=== PATIENT | female | born 1965 | race Caucasian/White ===

== ENCOUNTER 2022-05-22 15:53 | Outpatient (CLI) | payer BC, SELFPAY ==
--- OUTSIDE RECORDS SUMMARY | 2022-05-22 15:58 | XMS_ITS | Clinical Summary ---
:1965 Author Organization [facility] [place] [address] Care Team Providers Name Role Phone Mario Alberto Otoole Kenneth DO Unavailable Ino Rodriguez MD Unavailable Pcp, No Primary Care Provider Unavailable Allergies No known active allergies Medications Medication Sig Dispensed Refills Start Date End Date Status valACYclovir (VALTREX) 1 0 12/07/2019 Active gram tablet lisinopril-hydrochloroth Take 1 Tablet by 0 Active iazide, 20-25 mg, mouth. (PRINZIDE, ZESTORETIC) 20-25 mg per tablet omeprazole (PRILOSEC) 40 TAKE 1 CAPSULE BY 0 020 Active mg Delayed-Release MOUTH EVERY DAY capsule pravastatin (PRAVACHOL) TAKE 1 TABLET BY 0 0 Active 40 mg tablet MOUTH EVERY DAY predniSONE (DELTASONE) 5 TAKE 1 TABLET BY 0 10/19/19 21 Active mg tablet MOUTH 2 TIMES A DAY. X 1 MONTH, THEN TAKE 1 TABLET PER DAY azaTHIOprine (IMURAN) 50 azathioprine 50 mg tablet 0 03/28/2021 Active mg tablet TAKE 4 TABLETS (200 MG TOTAL) BY MOUTH DAILY. hydrOXYchloroQUINE Take 400 mg by 0 04/22/2021 Active (PLAQUENIL) 200 mg mouth. tablet colestipoL (COLESTID) 1 Take 1 g by 0 04/19/2021 Active gram tablet mouth. oxybutynin XL (DITROPAN Take 1 Tablet (10 90 Tablet 0 05/09/20 21 Active XL) 10 mg CR mg) by mouth once tabletIndications: daily. Overactive bladder mirabegron Myrbetriq 50 mg tablet,extended release 0 Active EXTENDED-release TAKE 1 TABLET BY MOUTH EVERY DAY (Myrbetriq) 50 mg tablet [place] approved! estradioL (ESTRACE) Insert 1 g into 42.5 g 3 08/09/2021 Active 0.01% (0.1 mg/g) vaginal the vagina every creamIndications: Thursday, Thursday Atrophic vaginitis and Thursday. 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 Personal history of tobacco use, presenting hazards to health 08/08/2008 Immunizations Name Administration Dates Next Due Td (Age >=7 Years) 09/30/1996 Tdap 08/08/2008 Family History Medical History Relation Name Comments Arthritis Father Heart Disease Father pacemaker Heart Disease Maternal Grandfather Heart Disease Maternal Grandmother Arthritis Mother Hypertension Mother Other Other cousin with Lupu s Heart Disease Paternal Grandfather Other Paternal Grandmother leukemia Relation Name Status Comments Father Maternal Grandfather Maternal Grandmother Mother Other Paternal Grandfather Paternal Grandmother Social History Tobacco Use Types Packs/Day Years Used Date Former Smoker Cigarettes 1 23 Quit: 07/15/20 18 Smokeless Tobacco: Never Used Tobacco Cessation: Ready to Quit: No; Co unseling Given: Yes Alcohol Use Standard Drinks/Week Comments No 0 (1 standard drink = 0.6 oz pure alcoho l) Sex Assigned at Date Recorded Not on file Obstetrics History Last Filed Vital Signs Vital Sign Reading Time Taken Comments Blood Pressure 118/70 08/08/2021 4:46 PM [facility] Pulse 64 08/08/2021 4:46 PM [facility] Temperature 36.7 ??C (98 ??F) 11/13/2020 9:33 AM [facility] Respiratory Rate 16 08/08/2021 4:46 PM [facility] Oxygen Saturation 99% 11/13/2020 9:33 AM [facility] Inhaled Oxygen Concentration - - Weight 102.9 kg (226 lb 12.8 oz) 05/09/2021 2:10 PM CDT Height 167.6 cm (5' 6) 11/13/2020 9:33 AM [facility] Body Mass Index 36.61 11/13/2020 9:33 AM [facility] Plan of Treatment Health Maintenance Due Date Last Done Comments Depression screening for age 12+ 1976 Hepatitis C screening for age 1006/28/1982 18-79 Zoster (shingles) series for age 1006/28/1983 50+ (1 of 2) Colonoscopy through age 75 2009 Mammogram for age 45-75 08/08/2009 08/08/2008 Lipids for age 45-75 08/08/2013 08/08/2008 Tetanus booster 08/08/2018 08/08/2008, 09/30/1996 COVID-19 vaccine series (4 - 10/18/2021 07/26/2021, 021, Booster for Moderna series) 11/23/2020 BMI (ht and wt on same day) for 11/13/2021 11/13/2020 age 18+ Influenza for age 50-64 05/08/2022 Pap test for age 21-65 09/20/2024 09/20/2021, 09/20/2021, 11/03/2016, Additional history exists Tdap Completed 08/08/2008 Results Not on filefrom Last 3 Months Insurance Payer Benefit Plan / Subscriber ID Effective Dates Phone Addre ss Type Group BLUE [employer]OSS BLUE CROSS OF [id number] 2013-Present [address] [place] [address] BLUE [employer]OSS BLUE [employer]OSS OF [id number] 2020-Present [address] [address] [place] [address] [phone] (Work) Vee Danielson Personal/Family Self [address] (Home) [place], [place] [phone] (Work) Care Teams Home Economist Consumer Service Relationship Specialty Start Date End Date Pcp, No PCP - General 01/28/21 . Mario Alberto Otoole DO Rheumatology Rheumatology 11/17/11 Ino Rodriguez MD Rheumatology Rheumatology 05/19/12
--- OUTSIDE RECORDS SUMMARY | 2022-05-22 15:59 | XMS_ITS | Encounter Summary ---
:1965 Author Organization [facility] Address [address] [place] [address] Care Team Providers Name Role Phone Elsewhere, Pcp Primary Care Provider Unavailable Encounter Details Date Type Department Care Team Description 03/07/2022 Hospital Encounter Department of Pedro Donnelly Medicalma delia ion Therapy Laboratory Medicine R, POWER ELECTRONICS RESEARCH ENGINEER, C.N .P. Field Geologist Not in [place], [facility] [address] [address] [place], [place] [phone] (Work) [phone] Social History Tobacco Use Types Packs/Day Years Used Date Smoking Tobacco: Former Cigarettes 0 33 09/1986 - 07/15/2018 Smokeless Tobacco: Never Alcohol Use Standard Drinks/Week Comments No 0 (1 standard drink = 0.6 oz pure alcoho l) Alcohol Habits Answer Date Recorded How often do you have a drink containing alcohol? Never 09/23/2021 How many drinks containing alcohol do you have on a Patient refused 06/17/2019 typical day when you are drinking? How often do you have six or more drinks on one Never 03/07/2019 occasion? Comment: Not asked Social Isolation Answer Date Recorded In a typical week, how many times do you talk on the Never 09/23/2021 phone with family, friends, or neighbors? How often do you get together with friends or relatives? Nev er 09/23/2021 How often do you attend sikh or restoration services? Never 09/23/2021 Do you belong to any clubs or organizations such as No 09/23/2021 sikh groups, unions, fraternal or athletic groups, or school groups? How often do you attend meetings of the clubs or Never 09/23/2021 organizations you belong to? Are you now , , , , never Nev er 09/23/2021 or living with a partner? Physical Activity Answer Date Recorded On average, how many days per week do you engage in moderate to 0 days 09/23/2021 strenuous exercise (like walking fast, running, jogging, dancing, swimming, biking, or other activities that cause a light or heavy sweat)? On average, how many minutes do you engage in exercise at th is 0 min 09/23/2021 level? Stress Answer Date Recorded Do you feel stress - tense, restless, nervous, or To some ex tent 09/23/2021 anxious, or unable to sleep at night because your mind is troubled all the time - these days? Financial Resource Strain Answer Date Recorded How hard is it for you to pay for the very basics like Somew hat hard 09/23/2021 food, housing, medical care, and heating? Intimate Partner Violence Answer Date Recorded Within the last year, have you been afraid of your partner o r No 09/23/2021 ex-partner? Within the last year, have you been humiliated or emotionall y No 09/23/2021 abused in other ways by your partner or ex-partner? Within the last year, have you been kicked, hit, slapped, or No 09/23/2021 otherwise physically hurt by your partner or ex-partner? Within the last year, have you been raped or forced to have any No 09/23/2021 kind of sexual activity by your partner or ex-partner? Food Insecurity Answer Date Recorded Within the past 12 months, you worried that your food would Never true 09/23/2021 run out before you got money to buy more. Within the past 12 months, the food you bought just didn't N ever true 09/23/2021 last and you didn't have money to get more. Transportation Needs Answer Date Recorded In the past 12 months, has lack of transportation kept you f rom No 09/23/2021 medical appointments or from getting medications? In the past 12 months, has lack of transportation kept you f rom No 09/23/2021 meetings, work, or getting things needed for daily living? Housing Stability Answer Date Recorded In the last 12 months, was there a time when you were not ab le Yes 09/23/2021 to pay the mortgage or rent on time? In the last 12 months, how many places have you lived? 1 01/30/2021 In the last 12 months, was there a time when you did not hav e a No 09/23/[address] to sleep or slept in a penitentiary (including now)? Education Answer Date Recorded What is the highest level of school you have completed or 12 th grade 06/17/2019 the highest degree you have received? Sex Assigned at Date Recorded Female 03/09/2018 3:30 PM CDT documented as of this encounter Medications at Time of Discharge Medication Sig Dispensed Refills Start Date End Date azaTHIOprine (IMURAN) 50 TAKE 4 TABLETS BY 360 tablet 1 03/2022 mg tabletIndications: MOUTH DAILY. Lupus Systemic Erythematosus (HCC) calcium carbonate-vit Take 1 tablet by 0 08/25/20 12 D3-min 600 mg calcium- 800 mouth daily. unit tablet colestipoL (COLESTID) 1 TAKE 1 TABLET (1 180 tablet 1 2021 gram tablet G TOTAL) BY MOUTH 2 TIMES A DAY. estradioL (ESTRACE) 0.1 Insert 1 g into 0 021 mg/g (0.01%) vaginal cream the vagina. lisinopril-hydroCHLOROthia Take 1 tablet by 0 zide (PRINZIDE,ZESTORETIC) mouth daily. 20-25 mg per tablet mirabegron (MYRBETRIQ) 50 daily. 0 mg 24 hr tablet omeprazole (PriLOSEC) 40 TAKE 1 CAPSULE [address] capsule (40 MG TOTAL) BY MOUTH 2 (TWO) TIMES A DAY BEFORE BREAKFAST AND DINNER. pravastatin (PRAVACHOL) 40 Take 1 tablet (40 90 tablet 3 mg tablet mg total) by mouth daily. valACYclovir (VALTREX) 500 as directed. 0 021 mg tablet hydrOXYchloroQUINE TAKE 2 TABLETS BY 180 tablet 1 09/18/2021 05/05/2022 (PLAQUENIL) 200 mg tablet MOUTH DIRECTED. TAKE 1 TAB DAILY FOR 2 WEEKS THEN 2 TABS DAILY. documented as of this encounter Plan of Treatment Upcoming Encounters Date Type Specialty Care Team Description 07/08/2022 Appointment Laboratory Medicine Pedro Donnelly APRN, C.N.P. [address] [place] [phone] (Claudia rk) 07/08/2022 Office Visit Gastroenterology and Collin Trivedi Hepatology Chloe [address] [place] [phone] (Claudia rk) documented as of this encounter Procedures Procedure Name Priority Date/Time Associated Diagnosis Comme nts CBC WITH DIFFERENTIAL, B Routine 03/07/2022 4:34 Medication Th erapy Results for this PM CDT Halfway Not procedure are in Anticoagulant the results section. ASPARTATE Routine 03/07/2022 4:34 Medication Therapy Result s for this AMINOTRANSFERASE (AST), PM CDT Halfway Not pro cedure are in S/P Anticoagulant the results section. documented in this encounter Results AST (Aspartate Aminotransferase) (03/07/2022 4:34 PM CDT) [facility] ADmantX Method Time Signature Aspartate 19 8 - 43 03/07/2022 [place] Aminotransferase U/L 6:22 PM CDT (AST), P Specimen Anatomical Collection Method Collection Time Receive d Time (Source) Location / / Volume Laterality Blood (Blood, 03/07/2022 4:34 PM 03/07/20 6:04 Venous) CDT PM CDT Pedro Donnelly APRN, C.N.P. LAB BLOOD ADD-ON Performing Organization Address City/State/ZIP Code Phon e Number [facility] [address] [place] [address] [place] [address] System in [place] [address] (ABNORMAL) CBC with Differential, Blood (03/07/2022 4:34 PM CDT) [facility] ADmantX Method Time Signature Hemoglobin 11.5 (L) 11.6 - 03/07/2022 [place] 15.0 g/dL 6:10 PM CDT Hematocrit 34.8 (L) 35.5 - 03/07/2022 [place] 44.9 % 6:10 PM CDT Erythrocytes 3.86 (L) 3.92 - 03/07/2022 [place] 5.13 6:10 PM CDT x10(12)/L MCV 90.2 78.2 - 03/07/2022 [place] 97.9 fL 6:10 PM CDT RBC Distrib Width 14.7 12.2 - 03/07/2022 [place] 16.1 % 6:10 PM CDT Platelet Count 138 (L) 157 - 371 03/07/2022 [place] x10(9)/L 6:10 PM CDT Leukocytes 4.9 3.4 - 9.6 03/07/2022 [place] x10(9)/L 6:10 PM CDT Neutrophils 3.67 1.56 - 03/07/2022 [place] 6.45 6:10 PM CDT x10(9)/L Lymphocytes 0.78 (L) 0.95 - 03/07/2022 [place] 3.07 6:10 PM CDT x10(9)/L Monocytes 0.37 0.26 - 03/07/2022 [place] 0.81 6:10 PM CDT x10(9)/L Eosinophils 0.07 0.03 - 03/07/2022 [place] 0.48 6:10 PM CDT x10(9)/L Basophils <0.03 0.01 - 03/07/2022 [place] 0.08 6:10 PM CDT x10(9)/L Specimen Anatomical Collection Method Collection Time Receive d Time (Source) Location / / Volume Laterality Blood (Blood, 03/07/2022 4:34 PM 03/07/20 22 4:37 Venous) CDT PM CDT Pedro Donnelly APRN, C.N.P. LAB BLOOD ADD-ON Performing Organization Address City/State/ZIP Code Phon e Number [facility] [address] [place] [address] [facility] [place] [address] System in [place] [address] [facility] documented in this encounter Visit Diagnoses Diagnosis Medication Therapy Halfway Not Anticoa gulant documented in this encounter Care Teams Handicraft Or Hobby Shop Manager Relationship Specialty Start Date End Date Elsewhere, Pcp PCP - General Family Medicine 03/25/21 documented as of this encounter
--- OUTSIDE RECORDS SUMMARY | 2022-05-22 15:59 | XMS_ITS | Encounter Summary ---
:1965 Author Organization [facility] Address [address] [place] [address] Care Team Providers Name Role Phone Elsewhere, Pcp Primary Care Provider Unavailable Reason for Visit Reason Comments Lab Monitoring AZA Encounter Details Date Type Department Care Team Description 09/24/2021 Clinical Communication Division of Avani Celis M onitoring Rheumatology in A, R.N. ([facility]) [place], [place] [address] [facility] [address] [place] [phone] Social History Tobacco Use Types Packs/Day Years [...] er 09/23/2021 How often do you attend amish or gnosticist services? Never 09/23/2021 Do you belong to any clubs or organizations such as No 09/23/2021 amish groups, unions, fraternal or athletic groups, or [...] place to sleep or slept in a intermediate (including now)? Education Answer Date Recorded What is the highest level of school you have completed or 12 th grade 06/17/2019 the highest degree you have received? Sex Assigned at Date Recorded Female 03/09/2018 3:30 PM CDT documented as of this encounter Miscellaneous Notes Telephone Encounter - Avani Celis R.N. - 09/24/2021 8:17 AM CST ASSESSMENT Rheumatology monitoring labs completed on 09/23/21for azathioprine (Imuran) monitoring were reviewed per provider order. Labs reviewed: absolute neutrophil count, AST, hemoglobin, leukocytes, platelets Labs outside parameters: urinalysis ESR (Sed rate) Labs viewable in Labs tab. PLAN Provider NOT notified of abnormal lab(s). Patient was seen by provider yesterday. Per provider note,labs were addressed. The ESR is improving, but still elevated. Next labs scheduled for 11/11/21. NCE ENGINEER documented in this encounter Plan of Treatment Upcoming Encounters Date Type Specialty Care Team Description 07/08/2022 Appointment Laboratory Medicine Pedro Donnelly, ANTHONY, C.N.P. [address] [place] [phone] (Claudia vera) 07/08/2022 Office Visit Gastroenterology and Collin Trivedi Hepatology Chloe [address] [place] [phone] (Claudia vera) documented as of this encounter Visit Diagnoses Not on filedocumented in this encounter Care Teams Candy Cooker Helper Relationship Specialty Start Date End Date Elsewhere, Pcp PCP - General Family Medicine 03/25/21 documented as of this encounter
--- OUTSIDE RECORDS SUMMARY | 2022-05-22 15:59 | XMS_ITS | Clinical Summary ---
:1965 Author Organization [facility] Address [address] [place] [address] Care Team Providers Name Role Phone Elsewhere, Pcp Primary Care Provider Unavailable Source Comments Patient records contain information from all sites at [facility]. For routine questions regarding patient records, call [phone] during business hours, M-F 8:00 AM - 5:00 PM Central Time. Record requests for emergency care only can be directed to [phone] at any time.[facility] Allergies Active Allergy Reactions Severity Noted Date Comments No Known Allergies Other (see comments) 06/11/2012 Medications Medication Sig Dispensed Refills Start End Date Status Date calcium carbonate-vit Take 1 tablet 0 Active D3-min 600 mg calcium- by mouth 2 800 unit tablet daily. lisinopril-hydroCHLORO Take 1 tablet 0 Active thiazide by mouth (PRINZIDE,ZESTORETIC) daily. 20-25 mg per tablet omeprazole (PriLOSEC) TAKE 1 180 capsule [address] capsule CAPSULE (40 1 MG TOTAL) BY MOUTH 2 (TWO) TIMES A DAY BEFORE BREAKFAST AND DINNER. valACYclovir (VALTREX) as directed. 0 Active 500 mg tablet 1 mirabegron (MYRBETRIQ) daily. 0 Active 50 mg 24 hr tablet pravastatin Take 1 tablet 90 tablet 3 Acti ve (PRAVACHOL) 40 mg (40 mg total) 1 tablet by mouth daily. estradioL (ESTRACE) Insert 1 g 0 Active 0.1 mg/g (0.01%) into the 1 vaginal cream vagina. colestipoL (COLESTID) TAKE 1 TABLET 180 tablet 1 Active 1 gram tablet (1 G TOTAL) 2 BY MOUTH 2 TIMES A DAY. azaTHIOprine (IMURAN) TAKE 4 360 tablet 1 Active 50 mg TABLETS BY 2 tabletIndications: MOUTH DAILY. Lupus Systemic Erythematosus (HCC) hydrOXYchloroQUINE Take 2 180 tablet 0 Active (PLAQUENIL) 200 mg tablets (400 2 tablet mg total) by mouth daily. Updated eye exam required for further refills. hydrOXYchloroQUINE TAKE 2 180 tablet 1 05/05/20 Discontinued (PLAQUENIL) 200 mg TABLETS BY 2 22 tablet MOUTH DIRECTED. TAKE 1 TAB DAILY FOR 2 WEEKS THEN 2 TABS DAILY. Hospital, Clinic, or Ordered Dose Route Frequency Start Date End D ate Status Other Facility Administered Medication fluorescein 500 mg/5 mL 500 mg IV Once in imaging 12/12/2019 Active (10 %) injection 500 mg (AK-FLUOR/FLUORESCEIN)I ndications: Hemorrhage Retinal Bilateral, Retinopathy Active Problems Problem Noted Date Retinopathy 12/11/2019 Hemorrhage Retinal Bilateral 10/17/2019 Cirrhosis Nonalcoholic 08/11/2018 Thrombocytopenia 08/26/2017 Swelling Leg 08/22/2015 Dependence Nicotine 06/08/2013 High Risk Medication 09/02/2012 Hepatitis Autoimmune 07/13/2012 Lupus Systemic Erythematosus 07/12/2012 Splenomegaly Acquired 06/11/2012 Other Local Lupus Erythematosus 05/04/2012 Encounters Date Type Specialty Care Team Description 05/14/2022 Documentation Rheumatology Arielle, Lab Monitoring Vesna Patterson R.N. 05/08/2022 Hospital Encounter Laboratory Medicine Pedro Donnelly epatitis Autoimmune (HCC); R, HI LOW TRUCK DRIVER, C.N.P. Medication T herapy Custodial Not Anticoagulant 04/30/2022 Refill Rheumatology Pedro Donnelly Refill ANTHONY Rojas, C.N.P. 03/12/2022 Clinical Rheumatology Yue, Lab Monitoring Yeny Ramirez R.N. 03/07/2022 Hospital Encounter Laboratory Medicine Pedro Donnelly edication Therapy R, HI LOW TRUCK DRIVER, C.N.P. Custodial No t Anticoagulant from Last 3 Months Immunizations Name Administration Dates Next Due HepA Adult 07/23/2012 Influenza (IM) Preservative Free 07/23/2012 Tdap 08/08/2008 Family History Medical History Relation Name Comments Coronary artery disease Father Dex Danielson Hypertension Father Dex Danielson Hyperlipidemia Mother Kindra Danielson Hypertension Mother Kindra Danielson Leukemia Paternal Grandmother Sherly Danielson Relation Name Status Comments Father Dex Danielson Mother Kindra Danielson Paternal Grandmother Sherly Danielson Social History Tobacco Use Types Packs/Day Years [...] er 09/23/2021 How often do you attend religious or mormonism services? Never 09/23/2021 Do you belong to any clubs or organizations such as No 09/23/2021 religious groups, unions, fraternal or athletic groups, or [...] place to sleep or slept in a fci (including now)? Education Answer Date Recorded What is the highest level of school you have completed or 12 th grade 06/17/2019 the highest degree you have received? Sex Assigned at Date Recorded Female 03/09/2018 3:30 PM CDT Last Filed Vital Signs Vital Sign Reading Time Taken Comments Blood Pressure 128/57 09/23/2021 3:16 PM PRIMER POWDER BLENDER WET Pulse 81 09/23/2021 3:16 PM PRIMER POWDER BLENDER WET Temperature 36.9 ??C (98.4 ??F) 09/23/2021 3:16 PM PRIMER POWDER BLENDER WET Respiratory Rate 23 12/22/2018 2:52 PM CDT Oxygen Saturation 99% 02/16/2020 3:26 PM CDT Inhaled Oxygen Concentration - - Weight 103 kg (227 lb 15.3 oz) 09/23/2021 3:16 PM PR[employer] POWDER BLEND[employer] WET Height 164.6 cm (5' 4.8) 09/23/2021 3:16 PM PRIMER POWDER BLENDER WET Body Mass Index 38.16 09/23/2021 3:16 PM PRIMER POWDER BLENDER WET Plan of Treatment Upcoming Encounters Date Type Specialty Care Team Description 07/08/2022 Appointment Laboratory Medicine Pedro Donnelly, HI LOW TRUCK DRIVER, C.N.P. [address] [place] [phone] (Wo rk) 07/08/2022 Office Visit Gastroenterology and Collin Trivedi, Hepatology M.DSarina [address] [place] [phone] (Wo rk) Health Maintenance Due Date Last Done Comments CT Colonography 1965 Cologuard 1965 FIT 1965 Hepatitis B Vaccines (1 of 1965 3 - 3-dose series) Pneumococcal vaccine (0-64 1970 years) (1 - PCV) Zoster Vaccines (1 of 2) 1983 Mammogram 01/05/2014 01/05/2013 (Performed elsewhere) Depression Screening 09/07/2021 (Annual PHQ-2) COVID-19 Vaccine (4 - 10/18/2021 07/26/2021, 12/20/2020, Booster for Moderna series) 11/23/2020 Abdominal Ultrasound 10/20/2021 04/19/2021, 02/27/2021, 10/19/2020, Additional history exists Influenza Vaccine (#1) 2022 06/18/2021, 06/19/2020, 05/22/2020, Additional history exists Creatinine Level 05/08/2023 05/08/2022, 09/23/2021, 04/19/2021, Additional history exists Potassium Level 05/08/2023 05/08/2022, 04/19/2021, 10/19/2020, Additional history exists Sodium Level 05/08/2023 05/08/2022, 04/19/2021, 10/19/2020, Additional history exists Lipid (Cholesterol) 06/21/2024 06/21/2019, 09/01/2011 Screening (Performed elsewhere) Fasting Glucose for 05/08/2025 05/08/2022, 04/19/2021, Diabetes Screening 10/19/2020, Additional history exists DTaP,Tdap,and Td Vaccines 09/16/2028 09/16/2018, 08/08/2008 (3 - Td or Tdap) Colonoscopy 12/22/2028 12/22/2018, 12/22/2018, 12/22/2018, Additional history exists Colorectal Cancer Screening 12/22/2028 Hepatitis C Screening Completed 06/11/2012 Hepatitis A Vaccines Completed 12/19/2013, 07/23/2012 HPV Vaccines Aged Out No longer eligib le based on patient 's age to complete this topic Procedures Procedure Name Priority Date/Time Associated Diagnosis Comme nts CBC WITH DIFFERENTIAL, B Routine 05/08/2022 9:40 Medication Th erapy Results for this AM CDT Field Service Manager Not procedure are in Anticoagulant the results section. COMPREHENSIVE METABOLIC Routine 05/08/2022 9:40 Hepatitis Auto immune Results for this PANEL, S/P AM CDT (HCC) procedure are i n the results section. PROTHROMBIN TIME (PT), P Routine 05/08/2022 9:40 Hepatitis Aut oimmune Results for this AM CDT (HCC) procedure are i n the results section. ASPARTATE Routine 03/07/2022 4:34 Medication Therapy Result s for this AMINOTRANSFERASE (AST), PM CDT Field Service Manager Not pro cedure are in S/P Anticoagulant the results section. CBC WITH DIFFERENTIAL, B Routine 03/07/2022 4:34 Medication Th erapy Results for this PM CDT Field Service Manager Not procedure are in Anticoagulant the results section. from Last 3 Months Results Prothrombin Time (PT) (05/08/2022 9:40 AM CDT) P athologist Signature Prothrombin 11.5 9.4 - 12.5 05/08/2022 OWAT Time, P sec 11:32 AM CDT INR 1.0 0.9 - 1.1 05/08/2022 OWAT 11:32 AM CDT Comment: ----ADDITIONAL INFORMATION---- Standard intensity warfarin therapeutic range: 2.0 to 3.0 ?? High intensity warfarin therapeutic rang e: 2.5 to 3.5 Specimen Anatomical Collection Method Collection Time Receive d Time (Source) Location / / Volume Laterality Blood (Blood, 05/08/2022 9:40 AM 05/08/20 22 Venous) CDT 11:17 AM CDT Collin Trivedi M.D. LAB BLOOD ADD-ON Performing Organization Address City/State/ZIP Code Phon e Number [facility] [address] [place] [address] [facility] [place] [address] System in [place] [address] (ABNORMAL) CBC with Differential, Blood (05/08/2022 9:40 AM CDT)Only the most recent of2 resultswithin the time period is included. [facility] gist Method Time Signature Hemoglobin 12.2 11.6 - 05/08/2022 FB60 15.0 g/dL 9:52 AM CDT Hematocrit 35.7 35.5 - 05/08/2022 FB60 44.9 % 9:52 AM CDT Erythrocytes 4.05 3.92 - 05/08/2022 FB60 5.13 9:52 AM CDT x10(12)/L MCV 88.1 78.2 - 05/08/2022 FB60 97.9 fL 9:52 AM CDT RBC Distrib Width 14.2 12.2 - 05/08/2022 FB60 16.1 % 9:52 AM CDT Platelet Count 121 (L) 157 - 371 05/08/2022 FB60 x10(9)/L 9:52 AM CDT Leukocytes 4.6 3.4 - 9.6 05/08/2022 FB60 x10(9)/L 9:52 AM CDT Neutrophils 3.33 1.56 - 05/08/2022 FB60 6.45 9:52 AM CDT x10(9)/L Lymphocytes 0.76 (L) 0.95 - 05/08/2022 FB60 3.07 9:52 AM CDT x10(9)/L Monocytes 0.40 0.26 - 05/08/2022 FB60 0.81 9:52 AM CDT x10(9)/L Eosinophils 0.07 0.03 - 05/08/2022 FB60 0.48 9:52 AM CDT x10(9)/L Basophils <0.04 0.01 - 05/08/2022 FB60 0.08 9:52 AM CDT x10(9)/L Specimen Anatomical Collection Method Collection Time Receive d Time (Source) Location / / Volume Laterality Blood (Blood, 05/08/2022 9:40 AM 05/08/20 9:40 Venous) CDT AM CDT Pedro Donnelly APRN, C.N.P. LAB BLOOD ADD-ON Performing Organization Address City/State/ZIP Code Phon e Number [address] [address] [facility] [address] [place] [address] System [address] Comprehensive Metabolic Panel (05/08/2022 9:40 AM CDT) P athologist Signature Potassium, P 4.6 3.6 - 5.2 05/08/2022 [place] mmol/L 12:04 PM CDT Sodium, P 140 135 - 145 05/08/2022 [place] mmol/L 12:04 PM CDT Chloride, P 103 98 - 107 05/08/2022 [place] mmol/L 12:04 PM CDT Bicarbonate, P 26 22 - 29 05/08/2022 [place] mmol/L 12:03 PM CDT Anion Gap, P 11 7 - 15 05/08/2022 OW[place] 12:04 PM CDT BUN (Blood Urea 21 6 - 21 05/08/2022 OWAT Nitrogen), P mg/dL 12:03 PM CDT Creatinine 1.00 0.59 - 05/08/2022 OWAT 1.04 mg/dL 12:03 PM CDT Estimated GFR 66 >=60 05/08/2022 OWAT (eGFR) mL/min/BSA 12:03 PM CDT Comment: Estimated GFR calculated using the 2020 CKD_EPI creatinine equation. Calcium, Total, P 9.7 8.6 - 10.0 mg/dL 05/08/2022 12:0 3 PM CDT OW[place] Glucose, P 99 70 - 140 mg/dL 05/08/2022 12:03 PM CDT OW[place] Protein, Total, P 7.7 6.3 - 7.9 g/dL 05/08/2022 12:03 PM CDT OWAT Albumin, P 4.5 3.5 - 5.0 g/dL 05/08/2022 12:03 PM CDT OW[place] Aspartate Aminotransferase 21 8 - 43 U/L 05/08/2022 1 2:03 PM CDT OW[place] (AST), P Alkaline Phosphatase, P 79 35 - 104 U/L 05/08/2022 12 :03 PM CDT OWAT Alanine Aminotransferase (ALT), 12 7 - 45 U/L 022 12:03 PM CDT OWAT P Bilirubin, Total, P 0.5 <=1.2 mg/dL 05/08/2022 12:03 P M CDT OWAT Specimen Anatomical Collection Method Collection Time Receive d Time (Source) Location / / Volume Laterality Blood (Blood, 05/08/2022 9:40 AM 05/08/20 Venous) CDT 11:19 AM CDT Collin Trivedi M.D. LAB BLOOD ADD-ON Performing Organization Address City/State/ZIP Code Phon e Number - [address] [place] [address] [facility] [place] [address] System in [place] [address] [place] [address] AST (Aspartate Aminotransferase) (03/07/2022 4:34 PM CDT) Patholo gist Method Time Signature Aspartate 19 8 - 43 03/07/2022 OWAT Aminotransferase U/L 6:22 PM CDT (AST), P Specimen Anatomical Collection Method Collection Time Receive d Time (Source) Location / / Volume Laterality Blood (Blood, 03/07/2022 4:34 PM 03/07/20 22 6:04 Venous) CDT PM CDT Robert Kumar APRNNSarinaPSarina LAB BLOOD ADD-ON Performing Organization Address City/State/ZIP Code Phon e Number - [address] [place] [address] [facility] [address] System in [place] [address] from Last 3 Months Insurance Payer Benefit Plan / Subscriber ID Effective Dates Phone Addre ss Type Group BLUE [employer]ARD[employer] BLUE [id number] 2020-Laurie [phone] PO TALI X [id number] PPO BLUE [facility] ACCESS t [address] [place] [address] Care Teams Block Sealer Relationship Specialty Start Date End Date Elsewhere, Pcp PCP - General Family Medicine 03/25/21
--- OUTSIDE RECORDS SUMMARY | 2022-05-22 15:59 | XMS_ITS | Encounter Summary ---
:1965 Author Organization [facility] Address [address] [place] [address] Care Team Providers Name Role Phone Elsewhere, Pcp Primary Care Provider Unavailable Reason for Referral MRI/CAT/PET Scan (Routine) - Closed Specialty Diagnoses / Procedures Referred By Contact Refer red To Contact Radiology Diagnoses Hepatitis Autoimmune (HCC) Collin Trivedi M.D. [facility] Procedures MR Liver Elastogram Only without IV Contrast [address] [place] [phone] Referral ID Status Reason Start Date Expiration Date Visits Requ ested Visits Authorized [id number] Closed 04/24/2021 04/24/2022 1 1 [facility] DEPARTMENT Reason for Visit MRI/CAT/PET Scan (Routine) - Closed Specialty Diagnoses / Procedures Referred By Contact Refer red To Contact Radiology Diagnoses Hepatitis Autoimmune (HCC) Collin Trivedi M.D. [facility] Procedures MR Liver Elastogram Only without IV Contrast [address] [place] [phone] Referral ID Status Reason Start Date Expiration Date Visits Requ ested Visits Authorized [id number] Closed 04/24/2021 04/24/2022 1 1 Encounter Details Date Type Department Care Team Description 11/11/2021 Hospital Encounter Department of Shikha, Hepatiti s Autoimmune Radiology, Maxi Bahena M.D. (HCC) [facility], in [address] [place] [phone] [place] [address] [place], [place] (Work) [phone] Social History Tobacco Use Types Packs/Day Years [...] er 09/23/2021 How often do you attend hindu or rastafari services? Never 09/23/2021 Do you belong to any clubs or organizations such as No 09/23/2021 hindu groups, unions, fraternal or athletic groups, or [...] place to sleep or slept in a [place] [facility] [place] (including now)? Education Answer Date Recorded What is the highest level of school you have completed or 12 th grade 06/17/2019 the highest degree you have received? Sex Assigned at Date Recorded Female 03/09/2018 3:30 PM CDT documented as of this encounter Medications at Time of Discharge Medication Sig Dispensed Refills Start Date End Date calcium carbonate-vit Take 1 tablet by 0 08/25/20 12 D3-min 600 mg calcium- 800 mouth daily. unit tablet estradioL (ESTRACE) 0.1 Insert 1 g into [...] 500 as directed. 0 021 mg tablet azaTHIOprine (IMURAN) 50 TAKE 4 TABLETS 360 tablet 1 022 02/11/2022 mg tabletIndications: (200 MG TOTAL) BY Lupus Systemic MOUTH DAILY. Erythematosus (HCC) colestipoL (COLESTID) 1 TAKE 1 TABLET (1 180 tablet 1 202012/09/2021 gram tablet G TOTAL) BY MOUTH 2 TIMES A DAY. hydrOXYchloroQUINE TAKE 2 TABLETS BY 180 tablet 1 09/18/2021 05/05/2022 (PLAQUENIL) 200 mg tablet MOUTH DIRECTED. TAKE 1 TAB DAILY FOR 2 WEEKS THEN 2 TABS DAILY. documented as of this encounter Plan of Treatment Upcoming Encounters Date Type Specialty Care Team Description 07/08/2022 Appointment Laboratory Medicine Pedro Donnelly APRN, C.N.P. [address] [place] [phone] (Claudia vera) 07/08/2022 Office Visit Gastroenterology and Collin Trivedi Hepatology MSarinaDSarina [address] [place] [phone] (Claudia vera) documented as of this encounter Procedures Procedure Name Priority Date/Time Associated Comments Diagnosis MR LIVER RAD - Routine 11/11/2021 7:57 Hepatitis Results for this ELASTOGRAM ONLY (most inpatients AM [facility] DEPART[facility] Autoimmune (HCC) proc edure are in WITHOUT IV and all the results CONTRAST outpatients) section. documented in this encounter Results MR Liver Elastogram Only without IV Contrast (11/11/2021 7:57 AM [facility]URE DEPARTMENT) Anatomical Region Laterality Modality Abdomen, Abdominal RST LOS, Abdominal ARZ LOS, N/A Magnetic Resonance Abdominal FLA LOS Specimen (Source) Anatomical Collection Method Collection Time Re ceived Time Location / / Volume Laterality 11/11/2021 9:25 AM [facility] Impressions 11/11/2021 12:43 PM [facility] DEPARTMENT 1. ??Normal liver stiffness. 2. ??Stable mild splenomegaly with eleva abelardo splenic stiffness, likely related to SLE. The liver MRE only protocol (or Hepatogr am protocol) is a limited MRI protocol designed to quantitatively assess liver fat and fibr osis. The imaging techniques used in this protocol are not suitable for detection or characterizati on of focal liver lesions and evaluation of lesions in other organs. Narrative 11/11/2021 12:43 PM [facility] DEPARTMENT EXAM: ??MR LIVER ELASTOGRAM ONLY WITHOUT IV CONTRAST 3D maximum intensity projections/volume renderings were created on an independent workstation as ordered by the treating provider and rev iewed by the radiologist for determination of hepatic parenchymal stiffness. COMPARISON: ??Abdominal ultrasound 04/19; CT abdomen/pelvis 02/27/2021. FINDINGS: Smooth liver contour. No abnormal diffus e fatty change or iron deposition in the liver. Stable hemangioma in the posterior right hepati c lobe, better characterized with multiphase contrast-enhanced CT from 08/22/2015. St able mild splenomegaly, with the spleen measuring 15.9 cm in length. Elevated stiffness of the spleen (series 1799, image 6). Cholecystectomy. Tiny esophageal hiatal hernia. Small splenule. Mean liver stiffness: ??2.0 kPa Range: ??1.9-2.0 kPa Interpretation of MRE results: <2.5kPa = Normal 2.5 to 3.0 kPa = Normal or inflammation Increased liver stiffness under appropri ate clinical and laboratory findings is compatible with liver fibrosis as below: 3.0 to 3.5 kPa = Stage 1-2 fibrosis 3.5 to 4 kPa = Stage 2-3 fibrosis 4 to 5 kPa = Stage 3-4 fibrosis >5 kPa = Stage 4 fibrosis Post-processed images were reviewed and approved. Procedure Note Andrey Foster M.D., Ph.D. - 2 EXAM: MR LIVER ELASTOGRAM ONLY WITHOUT I V CONTRAST 3D maximum intensity projections/volume renderings were created on an independent workstation as ordered by the treating provider and rev iewed by the radiologist for determination of hepatic parenchymal stiffness. COMPARISON: Abdominal ultrasound 021; CT abdomen/pelvis 02/27/2021. FINDINGS: Smooth liver contour. No abnormal diffus e fatty change or iron deposition in the liver. Stable hemangioma in the posterior right hepati c lobe, better characterized with multiphase contrast-enhanced CT from 08/22/2015. St able mild splenomegaly, with the spleen measuring 15.9 cm in length. Elevated stiffness of the spleen (series 1799, image 6). Cholecystectomy. Tiny esophageal hiatal hernia. Small splenule. Mean liver stiffness: 2.0 kPa Range: 1.9-2.0 kPa Interpretation of MRE results: <2.5kPa = Normal 2.5 to 3.0 kPa = Normal or inflammation Increased liver stiffness under appropri ate clinical and laboratory findings is compatible with liver fibrosis as below: 3.0 to 3.5 kPa = Stage 1-2 fibrosis 3.5 to 4 kPa = Stage 2-3 fibrosis 4 to 5 kPa = Stage 3-4 fibrosis >5 kPa = Stage 4 fibrosis Post-processed images were reviewed and approved. IMPRESSION: 1. Normal liver stiffness. 2. Stable mild splenomegaly with elevate d splenic stiffness, likely related to SLE. The liver MRE only protocol (or Hepatogr am protocol) is a limited MRI protocol designed to quantitatively assess liver fat and fibr osis. The imaging techniques used in this protocol are not suitable for detection or characterizati on of focal liver lesions and evaluation of lesions in other organs. Collin GRACIA MRI PROCEDURES documented in this encounter Visit Diagnoses Diagnosis Hepatitis Autoimmune (HCC) documented in this encounter Care Teams Legal Receptionist Relationship Specialty Start Date End Date Elsewhere, Pcp PCP - General Family Medicine 03/25/21 documented as of this encounter
--- OUTSIDE RECORDS SUMMARY | 2022-05-22 15:59 | XMS_ITS | Encounter Summary ---
:1965 Author Organization [facility] Address [address] [place] [address] Care Team Providers Name Role Phone Elsewhere, Pcp Primary Care Provider Unavailable Reason for Visit Reason Comments Lab Monitoring Encounter Details Date Type Department Care Team Description 03/12/2022 Clinical Communication Division of Saji Turner onitoring Rheumatology in [facility] [place] [address] [facility] [address] [place] [phone] Social History Tobacco Use Types Packs/Day Years [...] er 09/23/2021 How often do you attend tenriism or taoist services? Never 09/23/2021 Do you belong to any clubs or organizations such as No 09/23/2021 tenriism groups, unions, fraternal or athletic groups, or [...] place to sleep or slept in a senior living (including now)? Education Answer Date Recorded What is the highest level of school you have completed or 12 th grade 06/17/2019 the highest degree you have received? Sex Assigned at Date Recorded Female 03/09/2018 3:30 PM CDT documented as of this encounter Miscellaneous Notes Telephone Encounter - Layton Turner R.N. - 03/12/2022 2:51 PM CDT ASSESSMENT Rheumatology monitoring labs completed on 03/07/22 for azathioprine (Imuran) monitoring were reviewed per provider order. All monitored labs are within order range. Labs reviewed: absolute neutrophil count, AST, hemoglobin, leukocytes, platelets Labs viewable in Labs tab. PLAN Patient to continue with current plan of care. Patient next due for monitoring labs in two months. documented in this encounter Plan of Treatment Upcoming Encounters Date Type Specialty Care Team Description 07/08/2022 Appointment Laboratory Medicine Pedro Donnelly APRN, C.N.P. [address] [place] [phone] (Claudia vera) 07/08/2022 Office Visit Gastroenterology and Collin Trivedi Hepatology Chloe [address] [place] [phone] (Claudia vera) documented as of this encounter Results (ABNORMAL) CBC with Differential, Blood (05/08/2022 9:40 AM CDT) [facility] Method Time Signature Hemoglobin 12.2 11.6 - [...] Organization Address City/State/ZIP Code Phon e Number [place] [address] [place] [address] [facility] [address] [place] [address] System [address] documented in this encounter Visit Diagnoses Diagnosis Medication Therapy Critical Systems Technician Not Anticoa gulant - Primary documented in this encounter Care Teams Plumber'S Assistant Relationship Specialty Start Date End Date Elsewhere, Pcp PCP - General Family Medicine 03/25/21 documented as of this encounter
--- OUTSIDE RECORDS SUMMARY | 2022-05-22 15:59 | XMS_ITS | Encounter Summary ---
:1965 Author Organization [facility] Address [address] [place] [address] Care Team Providers Name Role Phone Elsewhere, Pcp Primary Care Provider Unavailable Reason for Visit Reason Comments Med Refill Encounter Details Date Type Department Care Team Description 09/17/2021 Refill Division of Rheumatology in Pedro Donnelly APRN, Med Refill [place], [place] C.N.P. [address] [facility] [address] [place] [address] [place] [address] [phone] (Wo rk) Social History Tobacco Use Types Packs/Day Years [...] er 09/23/2021 How often do you attend taoist or hinduism services? Never 09/23/2021 Do you belong to any clubs or organizations such as No 09/23/2021 taoist groups, unions, fraternal or athletic groups, or [...] PM CDT documented as of this encounter Plan of Treatment Upcoming Encounters Date Type Specialty Care Team Description 07/08/2022 Appointment Laboratory Medicine Pedro Donnelly, ROAD ROLLER OPERATOR HOT MIX, C.N.P. [address] [place] [phone] (Claudia vera) 07/08/2022 Office Visit Gastroenterology and Collin Trivedi, Hepatology M.DSarina [address] [place] [phone] (Claudia vera) documented as of this encounter Visit Diagnoses Not on filedocumented in this encounter Care Teams Wax Pattern Repairer Relationship Specialty Start Date End Date Elsewhere, Pcp PCP - General Family Medicine 03/25/21 documented as of this encounter
--- OUTSIDE RECORDS SUMMARY | 2022-05-22 15:59 | XMS_ITS | Encounter Summary ---
:[address] [facility] Address [address] [place] [address] Care Team Providers Name Role Phone Elsewhere, Pcp Primary Care Provider Unavailable Encounter Details Date Type Department Care Team Description 09/23/2021 Hospital En[facility] R, CATEGORY CONSULTANT, C.N .P. Erythematosus (HCC) and Pathology, [address] [place] [address], in [facility] [address] [place] [address] [place] [address] (Work) [place], [place] [phone] [address] (Fax) [phone] Social History Tobacco Use Types Packs/Day Years [...] er 09/23/2021 How often do you attend jewish or orthodoxy services? Never 09/23/2021 Do you belong to any clubs or organizations such as No 09/23/2021 jewish groups, unions, fraternal or athletic groups, or [...] place to sleep or slept in a retirement (including now)? Education Answer Date Recorded What [...] Description 07/08/2022 Appointment Laboratory Medicine Pedro Donnelly, Robert CRUZNSarinaP. [address] [place] [phone] (Wo rk) 07/08/2022 Office Visit Gastroenterology and Collin Trivedi, Hepatology M.Juan [address] [place] [phone] (Wo rk) documented as of this encounter Procedures Procedure Name Priority Date/Time Associated Diagnosis Comme nts SC OSMOLALITY ASSAY Routine 09/23/2021 1:58 PM Re sults for this URINE SALES MERCHANDISE ASSOCIATE procedure are i n the results section. DIPSTICK, U Routine 09/23/2021 1:58 PM Results f or this SALES MERCHANDISE ASSOCIATE procedure are i n the results section. PH, RANDOM, U Routine 09/23/2021 1:58 PM Results for this SALES MERCHANDISE ASSOCIATE procedure are i n the results section. MICROSCOPIC MANUAL Routine 09/23/2021 1:58 PM Res ults for this SALES MERCHANDISE ASSOCIATE procedure are i n the results section. URINALYSIS WITH Routine 09/23/2021 1:58 PM Lupus Systemic Resu lts for this MICROSCOPIC SALES MERCHANDISE ASSOCIATE Erythematosus (HCC) procedur e are in the results section. documented in this encounter Results (ABNORMAL) Dipstick, Urine (09/23/2021 1:58 PM SALES MERCHANDISE ASSOCIATE) [facility] gist Method Time Signature Hemoglobin, Trace (A) Negative 09/23/2021 DTL QL, U 4:16 PM SALES MERCHANDISE ASSOCIATE Leukocyte Moderate (A) Negative 09/23/2021 DTL Esterase, U 4:16 PM SALES MERCHANDISE ASSOCIATE Nitrite, U Negative Negative 09/23/2021 DTL 4:16 PM SALES MERCHANDISE ASSOCIATE Ketone, U Negative Negative 09/23/2021 DTL mg/dL 4:16 PM SALES MERCHANDISE ASSOCIATE Glucose, U Negative Negative 09/23/2021 DTL mg/dL 4:16 PM SALES MERCHANDISE ASSOCIATE Specimen Anatomical Collection Method Collection Time Receive d Time (Source) Location / / Volume Laterality Urine 09/23/2021 1:58 PM 2 4:12 SALES MERCHANDISE ASSOCIATE PM SALES MERCHANDISE ASSOCIATE Robert Kumar APRNN.P. LAB URINE ORDERABLES Performing Organization Address City/[facility]/ZIP Code Phon e Number [facility] - 200 [address] [place], [place] [address] [place] [id number] [place] [address] 200 [facility] Osmolality, Urine (09/23/2021 1:58 PM SALES MERCHANDISE ASSOCIATE) athologist Signature Osmolality, U 649 150 - 1150 09/23/2021 DT mOsm/kg 4:54 PM SALES MERCHANDISE ASSOCIATE Specimen Anatomical Collection Method Collection Time Receive d Time (Source) Location / / Volume Laterality Urine 09/23/2021 1:58 PM 2 4:12 SALES MERCHANDISE ASSOCIATE PM SALES MERCHANDISE ASSOCIATE Robert Kumar APRNN.P. LAB URINE ORDERABLES Performing Organization Address City/[facility]/ZIP Code Phon e Number [facility] - 200 [place], [place] [address] [place] [address] pH, Random, Urine (09/23/2021 1:58 PM SALES MERCHANDISE ASSOCIATE) athologist Signature pH, Random, U 5.2 4.5 - 8.0 09/23/2021 DT 4:54 PM SALES MERCHANDISE ASSOCIATE Specimen Anatomical Collection Method Collection Time Receive d Time (Source) Location / / Volume Laterality Urine 09/23/2021 1:58 PM 2 4:12 SALES MERCHANDISE ASSOCIATE PM SALES MERCHANDISE ASSOCIATE Pedro Donnelly APRN, [place].N.P. LAB URINE ORDERABLES Performing Organization Address City/[facility]/ZIP Code Phon e Number [facility] - [address] [place], [place] [address] [place] [address] [facility] 200 [facility] (ABNORMAL) Microscopic Manual (09/23/2021 1:58 PM SALES MERCHANDISE ASSOCIATE) athologist Signature Microscopy Abnormal 09/23/2021 DTL 4:54 PM SALES MERCHANDISE ASSOCIATE RBC <3 <3 /hpf 09/23/2021 DTL 4:54 PM SALES MERCHANDISE ASSOCIATE WBC >100 (A) /hpf 09/23/2021 DTL 4:54 PM SALES MERCHANDISE ASSOCIATE Comment: ----REFERENCE VALUE---- 1-3 ??(Males) 1-10 (Females) Squamous Epithelial Cells, U 4-10 /hpf 09/23/2021 4:54 PM SALES MERCHANDISE ASSOCIATE DTL Bacteria Present (A) 09/23/2021 4:54 PM SALES MERCHANDISE ASSOCIATE DTL Specimen Anatomical Collection Method Collection Time Receive d Time (Source) Location / / Volume Laterality Urine 09/23/2021 1:58 PM 4:12 SALES MERCHANDISE ASSOCIATE PM SALES MERCHANDISE ASSOCIATE Pedro Donnelly APRN, C.N.P. LAB URINE ORDERABLES Performing Organization Address City/[facility] [place] Phon e Number [facility] - [address] [place], [place] [id number] [place] [address] (ABNORMAL) Urinalysis with Microscopic: Urine, Midstream (09/23/2021 1:58 PM SALES MERCHANDISE ASSOCIATE) Analysis Performed At Patho logist Time Signature Source Midstream 09/23/2021 DTL 4:12 PM SALES MERCHANDISE ASSOCIATE Color, U Yellow 09/23/2021 DTL 4:12 PM SALES MERCHANDISE ASSOCIATE Clarity, U Clear 09/23/2021 DTL 4:12 PM SALES MERCHANDISE ASSOCIATE Protein, U 30 (H) <26 mg/dL 09/23/2021 DTL 5:16 PM SALES MERCHANDISE ASSOCIATE Protein/Osmola 0.46 (H) <0.42 09/23/2021 DTL lity ratio 5:16 PM SALES MERCHANDISE ASSOCIATE Predicted 24 332 mg/24 h 09/23/2021 DTL Hr Protein 5:16 PM SALES MERCHANDISE ASSOCIATE Predicted 82-1344 mg/24 h 09/23/2021 DTL Range 5:16 PM SALES MERCHANDISE ASSOCIATE Specimen Anatomical Collection Method Collection Time Receive d Time (Source) Location / / Volume Laterality Urine (Urine, 09/23/2021 1:58 PM 09/23/19 22 4:12 Midstream) SALES MERCHANDISE ASSOCIATE PM SALES MERCHANDISE ASSOCIATE Apolonia Kumar APRN.N.P. LAB URINE ORDERABLES Performing Organization Address City/[facility] [place] Phon e Number [facility] - [address] [place], [place] [address] [facility] [place] [address] documented in this encounter Visit Diagnoses Diagnosis Lupus Systemic Erythematosus (HCC) documented in this encounter Care Teams Paving Rammer Relationship Specialty Start Date End Date Elsewhere, Pcp PCP - General Family Medicine 03/25/21 documented as of this encounter
--- OUTSIDE RECORDS SUMMARY | 2022-05-22 15:59 | XMS_ITS | Encounter Summary ---
:1965 Author Organization [facility] Address [address] [place] [address] Care Team Providers Name Role Phone Elsewhere, Pcp Primary Care Provider Unavailable Encounter Details Date Type Department Care Team Description 10/14/2021 Clinical Communication Division of Shikha, Gastroenterology in [place], [place] [address] [facility] [address] [place] [address] [phone] Social History Tobacco Use Types Packs/Day Years [...] er 09/23/2021 How often do you attend yazdanism or worship services? Never 09/23/2021 Do you belong to any clubs or organizations such as No 09/23/2021 yazdanism groups, unions, fraternal or athletic groups, or [...] place to sleep or slept in a fdc (including now)? Education Answer Date Recorded What is the highest level of school you have completed or 12 th grade 06/17/2019 the highest degree you have received? Sex Assigned at Date Recorded Female 03/09/2018 3:30 PM CDT documented as of this encounter Plan of Treatment Upcoming Encounters Date Type Specialty Care Team Description 07/08/2022 Appointment Laboratory Medicine Pedro Donnelly, MAINTAINABILITY ENGINEER, C.N.P. [address] [place] [address] (Wo rk) 07/08/2022 Office Visit Gastroenterology and Collin Trivedi, Hepatology M.DSarina [address] [place] [address] (Wo rk) documented as of this encounter Visit Diagnoses Not on filedocumented in this encounter Care Teams Heating Systems Installer Relationship Specialty Start Date End Date Elsewhere, Pcp PCP - General Family Medicine 03/25/21 documented as of this encounter
--- OUTSIDE RECORDS SUMMARY | 2022-05-22 15:59 | XMS_ITS | Encounter Summary ---
:1965 Author Organization [facility] [place] [facility] Address [address] [place] [address] Care Team Providers Name Role Phone Elsewhere, Pcp Primary Care Provider Unavailable Reason for Visit Reason Comments Med Refill Encounter Details Date Type Department Care Team Description 02/07/2022 Refill Division of Rheumatology in Pedro Donnelly APRN, Med Refill [place], [place] C.N.P. [address] [facility] [address] [place] [address] [place] [address] [phone] (Wo rk) Social History Tobacco Use Types [...] er 09/23/2021 How often do you attend evangelical or moravian services? Never 09/23/2021 Do you belong to any clubs or organizations such as No 09/23/2021 evangelical groups, unions, fraternal or athletic groups, or [...] place to sleep or slept in a mcfp (including now)? Education Answer Date Recorded What is the highest level of school you have completed or 12 th grade 06/17/2019 the highest degree you have received? Sex Assigned at Date Recorded Female 03/09/2018 3:30 PM CDT documented as of this encounter Miscellaneous Notes Telephone Encounter - Lesvia Brizuela R.N. - 02/11/2022 10:01 AM CDT Prescription renewal request for azathioprine (Imuran) received from pharmacy. HISTORY OF PRESENT ILLNESS Last Rheum visit: 09/23/2021 with Pedro Donnelly APRN, POPEYE Future office visit: ordered, not yet scheduled Last monitoring labs/eye exam: monitoring labs 01/09/2022: within protocol parameters. Prescription request matches current plan of care. Prescription request matches a current prescription in the Medication List. Exclusion criteria: None ASSESSMENT/PLAN Prescription request renewed per nursing protocol. documented in this encounter Plan of Treatment Upcoming Encounters Date Type Specialty Care Team Description 07/08/2022 Appointment Laboratory Medicine Pedro Donnelly APRN, C.N.P. [address] [place] [phone] (Claudia vera) 07/08/2022 Office Visit Gastroenterology and Collin Trivedi Hepatology Chloe [address] [place] [address] (Claudia vera) documented as of this encounter Visit Diagnoses Diagnosis Lupus Systemic Erythematosus (HCC) documented in this encounter Care Teams Turntable Man Relationship Specialty Start Date End Date Elsewhere, Pcp PCP - General Family Medicine 03/25/21 documented as of this encounter
--- OUTSIDE RECORDS SUMMARY | 2022-05-22 15:59 | XMS_ITS | Encounter Summary ---
:1965 Author Organization [facility] Address [address] [place] [address] Care Team Providers Name Role Phone Elsewhere, Pcp Primary Care Provider Unavailable Encounter Details Date Type Department Care Team Description 05/08/2022 Hospital Encounter Department of Pedro Donnelly Hepatit is Autoimmune (HCC); Laboratory Medicine R, MARINE ELECTRICIAN HELPER, C.N .P. Medication Therapy Automation Qa Analyst Not Anticoa gulant in [place], [address] [place], [place] [address] [address] [place], [place] [phone] [address] (Work) [phone] Social History Tobacco Use Types Packs/Day Years [...] er 09/23/2021 How often do you attend episcopalian or gnosticist services? Never 09/23/2021 Do you belong to any clubs or organizations such as No 09/23/2021 episcopalian groups, unions, fraternal or athletic groups, or [...] to pay for the very basics like Tetrageneticsw hat hard 09/23/2021 food, housing, medical care, [...] Start Date End Date azaTHIOprine (IMURAN) 50 mg TAKE 4 TABLETS BY 360 tablet 1 0 02/11/2022 tabletIndications: Lupus MOUTH DAILY. Systemic Erythematosus (HCC) calcium carbonate-vit Take 1 tablet by 0 08/25/20 12 D3-min 600 mg calcium- 800 mouth daily. unit tablet colestipoL (COLESTID) 1 TAKE 1 TABLET (1 G 180 tablet 1 12/2021 gram tablet TOTAL) BY MOUTH 2 TIMES A DAY. estradioL (ESTRACE) 0.1 Insert 1 g into 0 021 mg/g (0.01%) vaginal cream the vagina. hydrOXYchloroQUINE Take 2 tablets 180 tablet 0 05/05/2022 (PLAQUENIL) 200 mg tablet (400 mg total) by mouth daily. Updated eye exam required for further refills. lisinopril-hydroCHLOROthiaz Take 1 tablet by 0 lakesha (PRINZIDE,ZESTORETIC) mouth daily. 20-25 mg per tablet mirabegron (MYRBETRIQ) 50 daily. 0 mg 24 hr tablet omeprazole (PriLOSEC) 40 mg TAKE 1 CAPSULE (40 180 capsule 3 12/24/2020 DR capsule MG TOTAL) BY MOUTH 2 (TWO) TIMES A DAY BEFORE BREAKFAST AND DINNER. pravastatin (PRAVACHOL) 40 Take 1 tablet (40 90 tablet 3 mg tablet mg total) by mouth daily. valACYclovir (VALTREX) 500 as directed. 0 021 mg tablet documented as of this encounter Plan of Treatment Upcoming Encounters Date Type Specialty Care Team Description 07/08/2022 Appointment Laboratory Medicine Pedro Donnelly, ANTHONY, C.N.P. [address] [place] [phone] (Wo rk) 07/08/2022 Office Visit Gastroenterology and Collin Trivedi Hepatology Chloe [address] [place] [phone] (Wo rk) documented as of this encounter Procedures Procedure Name Priority Date/Time Associated Diagnosis Comme nts PROTHROMBIN TIME Routine 05/08/2022 9:40 Hepatitis Autoimmune Results for this (PT), P AM CDT (HCC) procedure are i n the results section. CBC WITH Routine 05/08/2022 9:40 Medication Therapy Result s for this DIFFERENTIAL, B AM CDT Automation Qa Analyst Not procedure a re in Anticoagulant the results section. COMPREHENSIVE Routine 05/08/2022 9:40 Hepatitis Autoimmune Res ults for this METABOLIC PANEL, S/P AM CDT (HCC) procedu re are in the results section. documented in this encounter Results (ABNORMAL) CBC with Differential, Blood (05/08/2022 9:40 AM CDT) [facility] Method Time Signature Hemoglobin 12.2 11.6 [...] Organization Address City/State/ZIP Code Phon e Number [address] [place] [address] [facility] [address] [place] [address] System [address] Comprehensive Metabolic Panel (05/08/2022 9:40 [...] 05/08/2022 9:40 AM 05/08/20 22 Venous) CDT 11:19 AM CDT Collin Trivedi M.D. LAB BLOOD ADD-ON Performing Organization Address City/State/ZIP Code Phon e Number [facility] [address] [place] [address] [place] [address] System in [place] [address] Prothrombin Time (PT) (05/08/2022 9:40 AM CDT) [...] Organization Address City/State/ZIP Code Phon e Number [facility] [address] [place] [address] [place] [address] System in [place] [address] [facility] documented in this encounter Visit Diagnoses Diagnosis Hepatitis Autoimmune (HCC) Medication Therapy Automation Qa Analyst Not Anticoa gulant documented in this encounter Care Teams Boiler Welder Relationship Specialty Start Date End Date Elsewhere, Pcp PCP - General Family Medicine 03/25/21 documented as of this encounter
--- OUTSIDE RECORDS SUMMARY | 2022-05-22 15:59 | XMS_ITS | Encounter Summary ---
:1965 Author Organization [facility] Address [address] [place] [address] Care Team Providers Name Role Phone Elsewhere, Pcp Primary Care Provider Unavailable Encounter Details Date Type Department Care Team Description 09/23/2021 Hospital Encounter Department of [facility] Medicine R, PACKAGE WRAPPER, C.N .P. Erythematosus (HCC) and Pathology, [address] [place] [address], in [facility] [address] [place] [address] [address] [place] [address] (Work) [place], [place] [phone] (Fax) [phone] Social History Tobacco Use Types Packs/Day Years [...] er 09/23/2021 How often do you attend congregation or nondenominational services? Never 09/23/2021 Do you belong to any clubs or organizations such as No 09/23/2021 congregation groups, unions, fraternal or athletic groups, or [...] to sleep or slept in a senior care (including now)? Education Answer Date Recorded What [...] Description 07/08/2022 Appointment Laboratory Medicine Pedro Donnelly, ANTHONY CSarinaNSarinaP. [address] [place] [phone] (Wo rk) 07/08/2022 Office Visit Gastroenterology and Collin Trivedi, Hepatology M.DSarina [address] [place] [phone] (Wo rk) documented as of this encounter Procedures Procedure Name Priority Date/Time Associated Diagnosis Comme nts ANTINUCLEAR AB, Routine 09/23/2021 2:43 Lupus Systemic Results for this HEP-2, SUBSTRATE, S PM COLD ROLL INSPECTOR Erythematosus (HCC) p rocedure are in the results section. AB TO EXTRACTABLE Routine 09/23/2021 2:43 Lupus Systemic Resul ts for this NUCLEAR AG EVAL, S PM COLD ROLL INSPECTOR Erythematosus (HCC) pr ocedure are in the results section. DNA DOUBLE-STRANDED Routine 09/23/2021 2:43 Lupus Systemic Res ults for this (DSDNA) ABS, IGG, S PM COLD ROLL INSPECTOR Erythematosus (HCC) p rocedure are in the results section. SEDIMENTATION RATE, B Routine 09/23/2021 2:43 Lupus Systemic R esults for this PM COLD ROLL INSPECTOR Erythematosus (HCC) procedur e are in the results section. COMPL, TOT, S Routine 09/23/2021 2:43 Lupus Systemic Results f or this PM COLD ROLL INSPECTOR Erythematosus (HCC) procedur e are in the results section. COMPL C3, S Routine 09/23/2021 2:43 Lupus Systemic Results fo r this PM COLD ROLL INSPECTOR Erythematosus (HCC) procedur e are in the results section. COMPLEMENT C4, S Routine 09/23/2021 2:43 Lupus Systemic Result s for this PM COLD ROLL INSPECTOR Erythematosus (HCC) procedur e are in the results section. CREATININE WITH EGFR, Routine 09/23/2021 2:43 Lupus Systemic R esults for this S/P PM COLD ROLL INSPECTOR Erythematosus (HCC) procedur e are in the results section. documented in this encounter Results (ABNORMAL) Complement, Total (09/23/2021 2:43 PM COLD ROLL INSPECTOR) athologist Signature Complement, 25 (L) 30 - 75 09/25/2021 SDSC Total, S U/mL 5:07 PM COLD ROLL INSPECTOR Specimen Anatomical Collection Method Collection Time Receive d Time (Source) Location / / Volume Laterality Blood (Blood, 09/23/2021 2:43 PM 09/25/19 3:06 Venous) COLD ROLL INSPECTOR PM COLD ROLL INSPECTOR Robert Kumar APRNN.P. LAB BLOOD NON ADD-ON Performing Organization Address City/State/ZIP Code Phon e Number [facility] [address] [place] [address] [address] [facility] [place] [address] Laboratory Medicine and Pathology [address] [place] [address] Dr. CACERES (ABNORMAL) Complement C4 (09/23/2021 2:43 PM COLD ROLL INSPECTOR) athologist Signature Complement C4, S 6 (L) 14 - 40 09/24/2021 SDSC mg/dL 11:06 AM COLD ROLL INSPECTOR Specimen Anatomical Collection Method Collection Time Receive d Time (Source) Location / / Volume Laterality Blood (Blood, 09/23/2021 2:43 PM 09/24/19 7:55 Venous) COLD ROLL INSPECTOR AM COLD ROLL INSPECTOR Robert Kumar APRNN.P. LAB BLOOD ADD-ON Performing Organization Address City/State/ZIP Code Phon e Number [facility] [address] [place] [address] [address] [facility] [place] [address] Laboratory Medicine and Pathology [address] [place] [address] Dr. CACERES Complement C3 (09/23/2021 2:43 PM COLD ROLL INSPECTOR) athologist Signature Complement C3, S 91 75 - 175 09/24/2021 SDSC mg/dL 10:36 AM COLD ROLL INSPECTOR Specimen Anatomical Collection Method Collection Time Receive d Time (Source) Location / / Volume Laterality Blood (Blood, 09/23/2021 2:43 PM 09/24/19 22 7:55 Venous) COLD ROLL INSPECTOR AM COLD ROLL INSPECTOR Apolonia Kumar APRN.N.P. LAB BLOOD ADD-ON Performing Organization Address City/State/ZIP Code Phon e Number [facility] [address] [place] [address] [place] [address] Laboratory Medicine and Pathology [address] [place] DNA Double-Stranded (dsDNA) Antibodies, IgG (09/23/2021 2:43 PM COLD ROLL INSPECTOR) athologist Signature DNA <12.3 <30.0 09/24/2021 [facility] Double-Stranded (Negative) 3:30 PM COLD ROLL INSPECTOR Ab, IgG, S IU/mL Specimen Anatomical Collection Method Collection Time Receive d Time (Source) Location / / Volume Laterality Blood (Blood, 09/23/2021 2:43 PM 09/24/19 22 7:02 Venous) COLD ROLL INSPECTOR AM COLD ROLL INSPECTOR Pedro Donnelly APRN CSarinaNSarinaPSarina LAB BLOOD ADD-ON Performing Organization Address City/State/ZIP Code Phon e Number [facility] [address] [place], [place] [address] [place] [address] Laboratory Medicine and Pathology [address] [place] [address] Dr. CACERES (ABNORMAL) Antibody to Extractable Nuclear Antigen Evaluation (09/23/2021 2:43 PM COLD ROLL INSPECTOR) athologist Signature SS-A/Ro Ab, >8.0 (H) <1.0 09/24/2021 [facility], S (Negative) 12:20 PM COLD ROLL INSPECTOR U Comment: Interpretation: Positive (>=1.0 ) SS-B/La Ab, IgG, S <0.2 <1.0 (Negative) U 09/24/2021 12 :20 PM COLD ROLL INSPECTOR SD[facility] Sm Ab, IgG, S 0.4 <1.0 (Negative) U 09/24/2021 12:20 P M COLD ROLL INSPECTOR [facility] ASSOCIATE PROFESSOR OF THEOLOGY Ab, IgG, S <0.2 <1.0 (Negative) U 09/24/2021 12:20 PM COLD ROLL INSPECTOR [facility] Scl 70 Ab, IgG, S 0.2 <1.0 (Negative) U 09/24/2021 12: 20 PM COLD ROLL INSPECTOR SDSC Miladis 1 Ab, IgG, S <0.2 <1.0 (Negative) U 09/24/2021 12:20 PM COLD ROLL INSPECTOR [facility] Specimen Anatomical Collection Method Collection Time Receive d Time (Source) Location / / Volume Laterality Blood (Blood, 09/23/2021 2:43 PM 09/24/19 22 7:07 Venous) COLD ROLL INSPECTOR AM COLD ROLL INSPECTOR Apolonia Kumar APRN.N.P. LAB BLOOD ADD-ON Performing Organization Address [facility] Code Phon e Number [address] [place] [address] Laboratory Medicine and Pathology [address] [place] [address] Dr. CACERES (ABNORMAL) Antinuclear Antibodies, HEp-2 Substrate, IgG, Serum (09/23/2021 2:43 PM COLD ROLL INSPECTOR) [facility] gist Method Time Signature Antinuclear Ab, Positive <1:80 09/24/2021 [facility] HEp-2 1:640 (A) (Negative 2:42 PM COLD ROLL INSPECTOR Substrate, S ) Comment: ----ADDITIONAL INFORMATION---- Method: Immunofluorescence using HEp-2 c ellular substrate. CHAPARRITA Titer: 1:640 09/24/2021 2:42 PM COLD ROLL INSPECTOR [facility] CHAPARRITA Pattern: Speckled 09/24/2021 2:42 PM COLD ROLL INSPECTOR [facility] Specimen Anatomical Collection Method Collection Time Receive d Time (Source) Location / / Volume Laterality Blood (Blood, 09/23/2021 2:43 PM 09/24/19 22 7:07 Venous) COLD ROLL INSPECTOR AM COLD ROLL INSPECTOR Robert Kumar APRNNSarinaPSarina LAB BLOOD ADD-ON Performing Organization Address City/[facility] Code Phon e Number [address] [place] [address] Laboratory Medicine and Pathology [address] [place] [address] Dr. CACERES (ABNORMAL) Creatinine with Estimated GFR (09/23/2021 2:43 PM COLD ROLL INSPECTOR) Analysis Performed At Path logist Time Signature Creatinine 1.22 (H) 0.59 - 09/23/2021 DTL 1.04 mg/dL 3:38 PM COLD ROLL INSPECTOR eGFR-Non 49 (L) >=60 09/23/2021 DTL Black/ mL/min/BSA 3:38 PM COLD ROLL INSPECTOR [place] Comment: ----ADDITIONAL INFORMATION---- Estimated GFR calculated using the 2009 CKD_EPI creatinine equation. eGFR-Black/ 57 (L) >=60 mL/min/BSA 2021 3:38 PM COLD ROLL INSPECTOR DTL Comment: ----ADDITIONAL INFORMATION---- Estimated GFR calculated using the 2009 CKD_EPI creatinine equation. Specimen Anatomical Collection Method Collection Time Receive d Time (Source) Location / / Volume Laterality Blood (Blood, 09/23/2021 2:43 PM 09/23/19 22 3:19 Venous) COLD ROLL INSPECTOR PM COLD ROLL INSPECTOR Pedro Donnelly APRN, C.N.P. LAB BLOOD ADD-ON Performing Organization Address City/[facility]/ZIP Code Phon e Number [facility] - [address] [place] [phone] 05 [facility] [place] [address] Laboratories-[address] (ABNORMAL) Sedimentation Rate (09/23/2021 2:43 PM COLD ROLL INSPECTOR) [facility] gist Method Time Signature Sedimentation 108 (H) 2 - 22 09/23/2021 DTL Rate, B mm/h 4:06 PM COLD ROLL INSPECTOR Specimen Anatomical Collection Method Collection Time Receive d Time (Source) Location / / Volume Laterality Blood (Blood, 09/23/2021 2:43 PM 09/23/19 22 3:07 Venous) COLD ROLL INSPECTOR PM COLD ROLL INSPECTOR Pedro Donnelly APRN, C.N.P. LAB BLOOD ADD-ON Performing Organization Address City/[facility] Code Phon e Number [facility] - [address] [place] [address] 05 [place] [address] [facility]-[address] documented in this encounter Visit Diagnoses Diagnosis Lupus Systemic Erythematosus (HCC) documented in this encounter Care Teams Orthopedic Dentist Relationship Specialty Start Date End Date Elsewhere, Pcp PCP - General Family Medicine 03/25/21 documented as of this encounter
--- OUTSIDE RECORDS SUMMARY | 2022-05-22 15:59 | XMS_ITS | Encounter Summary ---
:1965 Author Organization [facility] Address [address] [place] [address] Care Team Providers Name Role Phone Elsewhere, Pcp Primary Care Provider Unavailable Reason for Referral Outpatient (Routine) - Authorized Specialty Diagnoses / Procedures Referred By Contact Refer red To Contact Rheumatology Pedro Donnelly APR N, C.N.P. [facility] [address] [place] [phone] Referral ID Status Reason Start Date Expiration Date Visits V isits Requested Authorized [id number] Authorized 09/23/2021 09/23/2022 1 1 SELING DEPARTMENT CHAIR Reason for Visit Outpatient (Routine) - Closed Specialty Diagnoses / Procedures Referred By Contact Refer red To Contact Rheumatology Diagnoses Lupus Systemic Erythematosus (HCC) Pedro Donnelly APRN, [facility] C.N.P. 200 [place] [address] Referral ID Status Reason Start Date Expiration Date Visits Requ ested Visits Authorized [id number] Closed 04/19/2021 04/19/2022 1 1 Encounter Details Date Type Department Care Team Description 09/23/2021 Office Visit Division of Pedro Donnelly Lupus Systemic Erythematosus (HCC) (Primary Dx); Rheumatology in ANTHONY Rojas, C.N.P. Thrombocytopenia (HCC); [place], [place] [address] [facility] Hepatitis Autoimmune (HCC); 200 [place], [place] High Risk Medication; [place] [address] Myalgia [phone] Social History Tobacco Use Types Packs/Day Years [...] er 09/23/2021 How often do you attend scientologist or samaritan services? Never 09/23/2021 Do you belong to any clubs or organizations such as No 09/23/2021 scientologist groups, unions, fraternal or athletic groups, or [...] place to sleep or slept in a halfway (including now)? Education Answer Date Recorded What is the highest level of school you have completed or 12 th grade 06/17/2019 the highest degree you have received? Sex Assigned at Date Recorded Female 03/09/2018 3:30 PM CDT documented as of this encounter Last Filed Vital Signs Vital Sign Reading Time Taken Comments Blood Pressure 128/57 09/23/2021 3:16 PM COUNSELING DEPARTMENT CHAIR Pulse 81 09/23/2021 3:16 PM COUNSELING DEPARTMENT CHAIR Temperature 36.9 ??C (98.4 ??F) 09/23/2021 3:16 PM COUNSELING DEPARTMENT CHAIR Respiratory Rate - - Oxygen Saturation - - Inhaled Oxygen Concentration - - Weight 103 kg (227 lb 15.3 oz) 09/23/2021 3:16 PM COUNSELING DEPARTMENT CHAIR Height 164.6 cm (5' 4.8) 09/23/2021 3:16 PM COUNSELING DEPARTMENT CHAIR Body Mass Index 38.16 09/23/2021 3:16 PM COUNSELING DEPARTMENT CHAIR documented in this encounter Progress Notes Pedro Donnelly, ANTHONY, CSarinaNStar. - 09/23/2021 3:30 PM CST SUBJECTIVE CHIEF COMPLAINT / REASON FOR VISIT Vee Danielson is a 56 y.o. female who presents as an established patient for follow up of systemic lupus erythematosus. HISTORY OF PRESENT ILLNESS Vee Danielson returns in follow-up for systemic lupus erythematosus. She was seen in consultation by Dr. Bal in June 2012. She continued to follow with him until I saw her for her first visit in 2016. Laboratory studies have included positive CHAPARRITA, positive SSA, and positive Cinseros antibody.She did have positive beta two IgM, antiphospholipid IgM, and PS/PT IgM. She has had chronic hypocomplementemia of C4. Double-stranded DNA negative. 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 Therapy has included topical treatments,prednisone, Plaquenil (discontinued due to weakness), azathioprine (current), and CellCept (rash). Be nlysta has been discussed but has not been initiated. Methotrexate and leflunomide are avoided due to liver fibrosis and previous cutaneous lupus. She also has a known history of autoimmune hepatitis and was later found to have evidence of fibrosis of the liver. She has had mild splenomegaly. No history of thrombotic event. She returns in follow-up today. She reports that she has had quite a bit of personal stress taking care of her father. She is not reporting concern today that her lupus has been active in a clinical sense although she did note that her platelets had dropped at her lab draw in July. She does reports some increased joint pain which she also suspects is related to poor sleep and stress. She reports that she had very poor sleep around this time. She continues with azathioprine 200 mg daily. She continues with hydroxychloroquine. No acute concerns today. She does have liver imaging coming up early next month. Previous Reports Reviewed:historical medical records, lab reports and office notes The following portions of the patient's history were reviewed and updated as appropriate: allergies,current medications, medical history and problem list. REVIEW OF SYSTEMS Pertinent positives and negatives as documented in the above history of present illness. Constitutional: Positive for fatigue, fever and night sweats. Skin: Negative for skin rash. Gastrointestinal: Positive for abdominal (belly) pain or cramping, blood in stool (Hemrrhoid), constipation, diarrhea, heartburn and nausea. Genitourinary: Positive for incontinence, urgency and frequent urination. Musculoskeletal: Positive for arthralgias, back pain, pain or stiffness in the joints and muscle pain/stiffness. Neurological: Positive for numbness or shooting pain in hands, arms, legs, or feet and headaches. The following systems were negative: Eyes, ENT, CV, Respiratory, Hematologic, Psych OBJECTIVE PHYSICAL EXAM Vitals reviewed. Constitutional Appearance: She is well-developed. Eyes Pupils: Pupils are equal, round, and reactive to light. Cardiovascular Rate and Rhythm: Normal rate and regular rhythm. Pulmonary Effort: Pulmonary effort is normal. Breath sounds: Normal breath sounds. Abdominal Palpations: Abdomen is soft. There is no mass. Tenderness: There is abdominal tenderness (Left upper quadrant, more mild than previous). Musculoskeletal Cervical back: Normal range of motion. Comments: No distinct joint tenderness noted on exam today. No tenderness noted in the hands today.She is able to make full fist. No synovitis noted on clinical exam today. She is not describing any tenderness in her proximal or distal legs. No knee or hip pain today. Lymphadenopathy Cervical: No cervical adenopathy. Skin General: Skin is warm and dry. Findings: No rash. Neurological Mental Status: She is alert and oriented to person, place, and time. Lab: Laboratory studies completed prior to today's visit include CBC with differential. Disease activity labs were drawn later. Disease Activity SLEDAI ASSESSMENT / PLAN #1 Lupus Systemic Erythematosus (HCC) #2 Hepatitis Autoimmune (HCC) #3 Thrombocytopenia (HCC) #4 Anemia #5 High Risk Medication She will continue with azathioprine 200 mg daily along with appropriate laboratory monitoring. She will continue with hydroxychloroquine 400 mg daily along with appropriate ocular monitoring. I will schedule to see her back in six months or sooner if concerns arise. She will reach out to Gastroenterology regarding her upcoming testing. We discussed COVID vaccines. We also discussed stress management today which I do suspect is contributing to her generally feeling not as well. We discussed some tools that may be helpful for her to focus on lowering her stress level and a wellness. PATIENT EDUCATION Ready to learn, no apparent learning barriers were identified; learning preferences include listening. Explained diagnosis and treatment plan; patient expressed understanding of the content. SELING DEPARTMENT CHAIR documented in this encounter Plan of Treatment Upcoming Encounters Date Type Specialty Care Team Description 07/08/2022 Appointment Laboratory Medicine Pedro Donnelly APRN, C.N.P. [address] [place] [address] (Wo rk) 07/08/2022 Office Visit Gastroenterology and Collin Trivedi, Hepatology M.DSarina [address] [place] [address] (Claudia rk) Scheduled Orders Name Type Priority Associated Diagnoses Order S chedule CBC with Differential, Lab Routine Lupus Systemic Exp ected: 03/23/2022 Blood Erythematosus (H CC) (Approximate), Thrombocytopenia (HCC) Expir es: 09/23/2022 Sedimentation Rate Lab Routine Lupus Systemic Expecte d: 03/23/2022 Erythematosus (H CC) (Approximate), Thrombocytopenia (HCC) Expir es: 09/23/2022 CRP (C-Reactive Protein) Lab Routine Lupus Systemic E xpected: 03/23/2022 Erythematosus (H CC) (Approximate), Thrombocytopenia (HCC) Expir es: 09/23/2022 AST (Aspartate Lab Routine Lupus Systemic Expected: 0 03/23/2022 Aminotransferase) Erythematosus (HCC) (Approximate), Thrombocytopenia (HCC) Expir es: 09/23/2022 Creatinine with Estimated Lab Routine Lupus Systemic Expected: 03/23/2022 GFR Erythematosus (H CC) (Approximate), Thrombocytopenia (HCC) Expir es: 09/23/2022 DNA Double-Stranded Lab Routine Lupus Systemic Expect ed: 03/23/2022 (dsDNA) Antibodies, IgG Erythema tosus (HCC) (Approximate), Thrombocytopenia (HCC) Expir es: 09/23/2022 Complement C3 Lab Routine Lupus Systemic Expected: Erythematosus (H CC) (Approximate), Thrombocytopenia (HCC) Expir es: 09/23/2022 Complement C4 Lab Routine Lupus Systemic Expected: Erythematosus (H CC) (Approximate), Thrombocytopenia (HCC) Expir es: 09/23/2022 Complement, Total Lab Routine Lupus Systemic Expected : 03/23/2022 Erythematosus (H CC) (Approximate), Thrombocytopenia (HCC) Expir es: 09/23/2022 Urinalysis with Lab Routine Lupus Systemic Expected: 03/23/2022 Microscopic: Urine, Voided Eryth ematosus (HCC) (Approximate), Thrombocytopenia (HCC) Expir es: 09/23/2022 Scheduled Referrals Name Type Priority Associated Order Schedule Diagnoses Rheumatology office Outpatient Referral Routine E xpected: visit (clinic) 03/23/2022 (Approximate), Expires: 12/22/2022 documented as of this encounter Procedures Procedure Name Priority Date/Time Associated Diagnosis Comme nts CREATINE KINASE Routine 09/23/2021 2:40 PM Myalgia Result s for this (CK), S COUNSELING DEPARTMENT CHAIR procedure are i n the results section. documented in this encounter Results CK (Creatine Kinase) (09/23/2021 2:40 PM COUNSELING DEPARTMENT CHAIR) P athologist Signature Creatine Kinase 64 26 - 192 09/23/2021 DTL (CK), S U/L 5:46 PM COUNSELING DEPARTMENT CHAIR Specimen Anatomical Collection Method Collection Time Receive d Time (Source) Location / / Volume Laterality Blood (Blood, 09/23/2021 2:40 PM 09/23/19 22 5:21 Venous) COUNSELING DEPARTMENT CHAIR PM COUNSELING DEPARTMENT CHAIR Pedro Donnelly APRN, C.N.P. LAB BLOOD ADD-ON Performing Organization Address City/State/ZIP Code Phon e Number [facility] - [address] [place], [place] [address] [facility] [place] [address] Laboratories-[facility] [address] documented in this encounter Visit Diagnoses Diagnosis Lupus Systemic Erythematosus (HCC) - Afia vinh Thrombocytopenia (HCC) Hepatitis Autoimmune (HCC) High Risk Medication Myalgia documented in this encounter Care Teams Household Chores Relationship Specialty Start Date End Date Elsewhere, Pcp PCP - General Family Medicine 03/25/21 documented as of this encounter
--- OUTSIDE RECORDS SUMMARY | 2022-05-22 15:59 | XMS_ITS | Encounter Summary ---
:1965 Author Organization [facility] Address [address] [place] [address] Care Team Providers Name Role Phone Elsewhere, Pcp Primary Care Provider Unavailable Reason for Visit Reason Comments Lab Monitoring AZA Encounter Details Date Type Department Care Team Description 01/14/2022 Clinical Communication Division of Avani Celis M onitoring Rheumatology in A, R.N. ([facility]) [place], [place] [address] [facility] [address] [place] [phone] Social History Tobacco Use Types Packs/Day Years [...] er 09/23/2021 How often do you attend samaritan or jehovah's witness services? Never 09/23/2021 Do you belong to any clubs or organizations such as No 09/23/2021 samaritan groups, unions, fraternal or athletic groups, or [...] place to sleep or slept in a detention (including now)? Education Answer Date Recorded What is the highest level of school you have completed or 12 th grade 06/17/2019 the highest degree you have received? Sex Assigned at Date Recorded Female 03/09/2018 3:30 PM CDT documented as of this encounter Miscellaneous Notes Telephone Encounter - Avani Celis R.N. - 01/14/2022 10:48 AM CDT ASSESSMENT Rheumatology monitoring labs completed on 01/10/22 for azathioprine (Imuran) monitoring were reviewed per [...] Description 07/08/2022 Appointment Laboratory Medicine Pedro Donnelly, GAMES MANAGER, C.N.P. [address] [place] [phone] (Claudia vera) 07/08/2022 Office Visit Gastroenterology and Collin Trivedi, Hepatology M.DSarina [address] [place] [phone] (Claudia vera) documented as of this encounter Results AST (Aspartate Aminotransferase) (03/07/2022 4:34 PM CDT) [facility] gist Method Time Signature Aspartate 19 8 - 43 03/07/2022 OWAT Aminotransferase U/L 6:22 PM CDT (AST), P Specimen Anatomical Collection Method Collection Time Receive d Time (Source) Location / / Volume Laterality Blood (Blood, 03/07/2022 4:34 PM 03/07/20 6:04 Venous) CDT PM CDT Pedro Donnelly APRN, C.N.P. LAB BLOOD ADD-ON Performing Organization Address City/State/ZIP Code Phon e Number [facility] [address] [place] [address] [facility] [place] [address] System in [place] [address] (ABNORMAL) CBC with Differential, Blood (03/07/2022 4:34 PM CDT) [facility] Method Time Signature Hemoglobin 11.5 (L) 11.6 [...] Laterality Blood (Blood, 03/07/2022 4:34 PM 03/07/20 4:37 Venous) CDT PM CDT Pedro Donnelly APRN, C.N.P. LAB BLOOD ADD-ON Performing Organization Address City/State/ZIP Code Phon e Number [facility]- [address] [place] [address] [place] [address] System in [place] [address] documented in this encounter Visit Diagnoses Diagnosis Medication Therapy Senior Living Not Anticoa gulant - Primary documented in this encounter Care Teams Bowl Attendant Relationship Specialty Start Date End Date Elsewhere, Pcp PCP - General Family Medicine 03/25/21 documented as of this encounter
--- OUTSIDE RECORDS SUMMARY | 2022-05-22 15:59 | XMS_ITS | Encounter Summary ---
:1965 Author Organization [facility] Address [address] [place] [address] Care Team Providers Name Role Phone Elsewhere, Pcp Primary Care Provider Unavailable Reason for Visit Reason Comments Lab Monitoring AZA Encounter Details Date Type Department Care Team Description 11/12/2021 Clinical Communication Division of Saji Curtis onitoring Rheumatology in Faye Patterson RAbigail ([facility]) [place], [place] [address] [facility] [address] [place] [phone] Social History Tobacco Use Types Packs/Day Years [...] er 09/23/2021 How often do you attend quaker or sikhism services? Never 09/23/2021 Do you belong to any clubs or organizations such as No 09/23/2021 quaker groups, unions, fraternal or athletic groups, or [...] place to sleep or slept in a correction (including now)? Education Answer Date Recorded What is the highest level of school you have completed or 12 th grade 06/17/2019 the highest degree you have received? Sex Assigned at Date Recorded Female 03/09/2018 3:30 PM CDT documented as of this encounter Miscellaneous Notes Telephone Encounter - Faye Curtis R.N. - 11/12/2021 11:08 AM CST ASSESSMENT Rheumatology monitoring labs completed on 11/11/21 for azathioprine (Imuran) monitoring were reviewed per provider order. All monitored labs are within order range. Labs reviewed: absolute neutrophil count, AST, hemoglobin, leukocytes, platelets Labs viewable in Labs tab. PLAN Patient to continue with current plan of care. Patient next due for monitoring labs in two months. OR BLENDER documented in this encounter Plan of Treatment Upcoming Encounters Date Type Specialty Care Team Description 07/08/2022 Appointment Laboratory Medicine Pedro Donnelly, ANTHONY, C.N.P. [address] [place] [phone] (Claudia vera) 07/08/2022 Office Visit Gastroenterology and Collin Trivedi, Hepatology M.DSarina [address] [place] [phone] (Claudia vera) documented as of this encounter Results AST (Aspartate Aminotransferase) (01/10/2022 9:24 AM CDT) [facility] gist Method Time Signature Aspartate 19 8 - 43 01/10/2022 [place] Aminotransferase U/L 11:30 AM CDT (AST), P Specimen Anatomical Collection Method Collection Time Receive d Time (Source) Location / / Volume Laterality Blood (Blood, 01/10/2022 9:24 AM 01/11/20 22 Venous) CDT 11:03 AM CDT Pedro Donnelly APRN, C.N.P. LAB BLOOD ADD-ON Performing Organization Address City/State/ZIP Code Phon e Number [facility]- [address] [place] [address] [facility] [place] [address] System in [place] [address] (ABNORMAL) CBC with Differential, Blood (01/10/2022 9:24 AM CDT) [facility] Method Time Signature Hemoglobin 13.3 11.6 - 01/10/2022 FB60 15.0 g/dL 9:35 AM CDT Hematocrit 39.2 35.5 - 01/10/2022 FB60 44.9 % 9:35 AM CDT Erythrocytes 4.45 3.92 - 01/10/2022 FB60 5.13 9:35 AM CDT x10(12)/L MCV 88.1 78.2 - 01/10/2022 FB60 97.9 fL 9:35 AM CDT RBC Distrib Width 14.9 12.2 - 01/10/2022 FB60 16.1 % 9:35 AM CDT Platelet Count 133 (L) 157 - 371 01/10/2022 FB60 x10(9)/L 9:35 AM CDT Leukocytes 4.2 3.4 - 9.6 01/10/2022 FB60 x10(9)/L 9:35 AM CDT Neutrophils 2.99 1.56 - 01/10/2022 FB60 6.45 9:35 AM CDT x10(9)/L Lymphocytes 0.76 (L) 0.95 - 01/10/2022 FB60 3.07 9:35 AM CDT x10(9)/L Monocytes 0.31 0.26 - 01/10/2022 FB60 0.81 9:35 AM CDT x10(9)/L Eosinophils 0.09 0.03 - 01/10/2022 FB60 0.48 9:35 AM CDT x10(9)/L Basophils 0.01 0.01 - 01/10/2022 FB60 0.08 9:35 AM CDT x10(9)/L Specimen Anatomical Collection Method Collection Time Receive d Time (Source) Location / / Volume Laterality Blood (Blood, 01/10/2022 9:24 AM 01/11/20 9:24 Venous) CDT AM CDT Pedro Donnelly APRN, C.N.P. LAB BLOOD ADD-ON Performing Organization Address City/State/ZIP Code Phon e Number [address] [place], [place] [id number] [place] [address] LAB [address] [place] [address] System in [address] documented in this encounter Visit Diagnoses Diagnosis Medication Therapy Professional Security Officer Not Anticoa gulant - Primary documented in this encounter Care Teams Senior Treasury Consultant Relationship Specialty Start Date End Date Elsewhere, Pcp PCP - General Family Medicine 03/25/21 documented as of this encounter
--- OUTSIDE RECORDS SUMMARY | 2022-05-22 15:59 | XMS_ITS | Encounter Summary ---
:1965 Author Organization [facility] Address [address] [place] [address] Care Team Providers Name Role Phone Elsewhere, Pcp Primary Care Provider Unavailable Encounter Details Date Type Department Care Team Description 09/23/2021 Hospital Encounter Department of [place], Terril Er ythematosuivis; Laboratory Medicine James Costello Medication Therapy Shelter Not Anticoa gulant and Pathology, [address] [place] [address], in [place] [phone] [place] [phone] [place] [address] (Work) [place], [place] [phone] (Fax) [phone] Social History Tobacco Use Types Packs/Day Years [...] er 09/23/2021 How often do you attend christianity or hoahaoism services? Never 09/23/2021 Do you belong to any clubs or organizations such as No 09/23/2021 christianity groups, unions, fraternal or athletic groups, or [...] to pay for the very basics like [employer] hat hard 09/23/2021 food, housing, medical care, [...] place to sleep or slept in a long-term (including now)? Education Answer Date Recorded What [...] Description 07/08/2022 Appointment Laboratory Medicine Pedro Donnelly APRN C.N.P. [address] [place] [phone] (Wo rk) 07/08/2022 Office Visit Gastroenterology and Collin Trivedi Hepatology M.DSarina [address] [place] [phone] (Wo rk) documented as of this encounter Procedures Procedure Name Priority Date/Time Associated Diagnosis Comme nts [facility] RESEARCH Routine 09/23/2021 1:52 PM Lupus Erythematosus R esults for this ORDER, B CAR HOSTLER procedure are i n the results section. CBC WITH Routine 09/23/2021 1:52 PM Medication Therapy Res ults for this DIFFERENTIAL, B CAR HOSTLER Shelter Not procedure a re in Anticoagulant the results section. documented in this encounter Results (ABNORMAL) CBC with Differential, Blood (09/23/2021 1:52 PM CAR HOSTLER) [facility] Method Time Signature Hemoglobin 12.4 11.6 - 09/23/2021 DTL 15.0 g/dL 2:39 PM CAR HOSTLER Hematocrit 36.3 35.5 - 09/23/2021 DTL 44.9 % 2:39 PM CAR HOSTLER Erythrocytes 3.98 3.92 - 09/23/2021 DTL 5.13 2:39 PM CAR HOSTLER x10(12)/L MCV 91.2 78.2 - 09/23/2021 DTL 97.9 fL 2:39 PM CAR HOSTLER RBC Distrib Width 13.8 12.2 - 09/23/2021 DTL 16.1 % 2:39 PM CAR HOSTLER Platelet Count 141 (L) 157 - 371 09/23/2021 DTL x10(9)/L 2:39 PM CAR HOSTLER Leukocytes 4.9 3.4 - 9.6 09/23/2021 DTL x10(9)/L 2:39 PM CAR HOSTLER Neutrophils 3.85 1.56 - 09/23/2021 DTL 6.45 2:39 PM CAR HOSTLER x10(9)/L Lymphocytes 0.72 (L) 0.95 - 09/23/2021 DTL 3.07 2:39 PM CAR HOSTLER x10(9)/L Monocytes 0.26 0.26 - 09/23/2021 DTL 0.81 2:39 PM CAR HOSTLER x10(9)/L Eosinophils 0.04 0.03 - 09/23/2021 DTL 0.48 2:39 PM CAR HOSTLER x10(9)/L Basophils 0.03 0.01 - 09/23/2021 DTL 0.08 2:39 PM CAR HOSTLER x10(9)/L Specimen Anatomical Collection Method Collection Time Receive d Time (Source) Location / / Volume Laterality Blood (Blood, 09/23/2021 1:52 PM 09/23/19 22 2:14 Venous) CAR HOSTLER PM CAR HOSTLER Pedro Donnelly APRN C.N.P. LAB BLOOD ADD-ON Performing Organization Address City/[facility] Phon e Number [facility] - [address] [place] [address] Miscellaneous Research, B (09/23/2021 1:52 PM CAR HOSTLER) athologist Signature Number of 5 09/23/2021 [facility] Specimens 1:52 PM CAR HOSTLER Specimen Anatomical Collection Method Collection Time Receive d Time (Source) Location / / Volume Laterality Varies (Blood, 09/23/2021 1:52 PM 022 1:52 Venous) CAR HOSTLER PM CAR HOSTLER Magdy Ni M.D. LAB RESEARCH NO RESULT ANDREA HENRÁNDEZ Performing Organization Address City/[facility] Phon e Number [facility] - [address] HSS [address] documented in this encounter Visit Diagnoses Diagnosis Lupus Erythematosus Medication Therapy Shelter Not Anticoa gulant documented in this encounter Care Teams Solar Sales Consultant Relationship Specialty Start Date End Date Elsewhere, Pcp PCP - General Family Medicine 03/25/21 documented as of this encounter
--- OUTSIDE RECORDS SUMMARY | 2022-05-22 15:59 | XMS_ITS | Encounter Summary ---
:1965 Author Organization [facility] Address [address] [place] [address] Care Team Providers Name Role Phone Elsewhere, Pcp Primary Care Provider Unavailable Reason for Visit Outpatient (Routine) - Authorized Specialty Diagnoses / Procedures Referred By Contact Refer red To Contact Research Diagnoses Lupus Erythematosus Magdy Ni [place] M.D. [address] [place], [place] [address] Referral ID Status Reason Start Date Expiration Date Visits V isits Requested Authorized [id number] Authorized 09/12/2021 09/12/2022 1 1 Encounter Details Date Type Department Care Team Description 09/23/2021 Clinical Support Division of Shauna Ni [facility] Rheumatology in Magdy Pope M.D. [place], [place] [address] [place] [address] [address] [place] [phone] Social History Tobacco Use Types Packs/Day Years [...] er 09/23/2021 How often do you attend adventism or temple services? Never 09/23/2021 Do you belong to any clubs or organizations such as No 09/23/2021 adventism groups, unions, fraternal or athletic groups, or [...] Description 07/08/2022 Appointment Laboratory Medicine Pedro Donnelly, EDI CONSULTANT, C.N.P. [address] [place] [phone] (Claudia vera) 07/08/2022 Office Visit Gastroenterology and Collin Trivedi Hepatology MAyala [address] [place] [phone] (Claudia rk) documented as of this encounter Visit Diagnoses Diagnosis Lupus Erythematosus documented in this encounter Care Teams Enrober Relationship Specialty Start Date End Date Elsewhere, Pcp PCP - General Family Medicine 03/25/21 documented as of this encounter
--- OUTSIDE RECORDS SUMMARY | 2022-05-22 15:59 | XMS_ITS | Encounter Summary ---
:1965 Author Organization [facility] Address [address] [place] [address] Care Team Providers Name Role Phone Elsewhere, Pcp Primary Care Provider Unavailable Encounter Details Date Type Department Care Team Description 11/11/2021 Hospital Encounter Department of Pedro Donnelly Medicalma delia ion Therapy Laboratory Medicine R, DIRECTOR OF TEENAGE ACTIVITIES, C.N .P. Liquor Department Manager Not and Pathology, [address] [place] [address] in [facility] [phone] [place] [address] 200 [facility] (Work) [place], [place] [phone] [phone] (Fax) [phone] Social History Tobacco Use Types Packs/Day Years [...] er 09/23/2021 How often do you attend jehovah's witness or yazdanism services? Never 09/23/2021 Do you belong to any clubs or organizations such as No 09/23/2021 jehovah's witness groups, unions, fraternal or athletic groups, or [...] place to sleep or slept in a mcc (including now)? Education Answer Date Recorded What [...] Medicine Pedro Donnelly APRN, C.N.P. [address] [place] [phone] (Wo rk) 07/08/2022 Office Visit Gastroenterology and Collin Trivedi Hepatology Chloe [address] [place] [phone] (Wo rk) documented as of this encounter Procedures Procedure Name Priority Date/Time Associated Diagnosis Comme nts CBC WITH DIFFERENTIAL, B Routine 11/11/2021 9:39 Medication Th erapy Results for this AM PROPERTY AND EQUIPMENT CLERK Liquor Department Manager Not procedure are in Anticoagulant the results section. ASPARTATE Routine 11/11/2021 9:39 Medication Therapy Result s for this AMINOTRANSFERASE (AST), AM PROPERTY AND EQUIPMENT CLERK Liquor Department Manager Not pro cedure are in S/P Anticoagulant the results section. documented in this encounter Results AST (Aspartate Aminotransferase) (11/11/2021 9:39 AM PROPERTY AND EQUIPMENT CLERK) [facility] ([email or web address]) Method Time Signature Aspartate 18 8 - 43 11/11/2021 DTL Aminotransferase U/L 10:46 AM PROPERTY AND EQUIPMENT CLERK (AST), S Specimen Anatomical Collection Method Collection Time Receive d Time (Source) Location / / Volume Laterality Blood (Blood, 11/11/2021 9:39 AM 11/12/19 22 Venous) PROPERTY AND EQUIPMENT CLERK 10:25 AM PROPERTY AND EQUIPMENT CLERK Pedro Donnelly APRN, C.N.P. LAB BLOOD ADD-ON Performing Organization Address City/State/ZIP Code Phon e Number [facility] - 200 [place], [place] [address] [facility] [place] [address] Laboratories-[facility] 200 [facility] (ABNORMAL) CBC with Differential, Blood (11/11/2021 9:39 AM PROPERTY AND EQUIPMENT CLERK) [facility] ([email or web address]) Method Time Signature Hemoglobin 12.0 11.6 - 11/11/2021 DTL 15.0 g/dL 10:17 AM PROPERTY AND EQUIPMENT CLERK Hematocrit 34.6 (L) 35.5 - 11/11/2021 DTL 44.9 % 10:17 AM PROPERTY AND EQUIPMENT CLERK Erythrocytes 3.82 (L) 3.92 - 11/11/2021 DTL 5.13 10:17 AM PROPERTY AND EQUIPMENT CLERK x10(12)/L MCV 90.6 78.2 - 11/11/2021 DTL 97.9 fL 10:17 AM PROPERTY AND EQUIPMENT CLERK RBC Distrib Width 14.3 12.2 - 11/11/2021 DTL 16.1 % 10:17 AM PROPERTY AND EQUIPMENT CLERK Platelet Count 115 (L) 157 - 371 11/11/2021 DTL x10(9)/L 10:17 AM PROPERTY AND EQUIPMENT CLERK Leukocytes 4.2 3.4 - 9.6 11/11/2021 DTL x10(9)/L 10:17 AM PROPERTY AND EQUIPMENT CLERK Neutrophils 3.07 1.56 - 11/11/2021 DTL 6.45 10:17 AM PROPERTY AND EQUIPMENT CLERK x10(9)/L Lymphocytes 0.78 (L) 0.95 - 11/11/2021 DTL 3.07 10:17 AM PROPERTY AND EQUIPMENT CLERK x10(9)/L Monocytes 0.32 0.26 - 11/11/2021 DTL 0.81 10:17 AM PROPERTY AND EQUIPMENT CLERK x10(9)/L Eosinophils 0.05 0.03 - 11/11/2021 DTL 0.48 10:17 AM PROPERTY AND EQUIPMENT CLERK x10(9)/L Basophils <0.03 0.01 - 11/11/2021 DTL 0.08 10:17 AM PROPERTY AND EQUIPMENT CLERK x10(9)/L Specimen Anatomical Collection Method Collection Time Receive d Time (Source) Location / / Volume Laterality Blood (Blood, 11/11/2021 9:39 AM 11/12/19 22 Venous) PROPERTY AND EQUIPMENT CLERK 10:01 AM PROPERTY AND EQUIPMENT CLERK Pedro Donnelly APRN C.N.P. LAB BLOOD ADD-ON Performing Organization Address City/State/ZIP Code Phon e Number [facility] - [address] [place], [place] [address] [facility] [place] [address] Laboratories-[facility] [address] documented in this encounter Visit Diagnoses Diagnosis Medication Therapy Snf Not Anticoa gulant documented in this encounter Care Teams Corporate Secretary Relationship Specialty Start Date End Date Elsewhere, Pcp PCP - General Family Medicine 03/25/21 documented as of this encounter
--- OUTSIDE RECORDS SUMMARY | 2022-05-22 15:59 | XMS_ITS | Encounter Summary ---
:1965 Author Organization [facility] Address [address] [place] [address] Care Team Providers Name Role Phone Elsewhere, Pcp Primary Care Provider Unavailable Reason for Visit Reason Comments Med Refill Encounter Details Date Type Department Care Team Description 04/30/2022 Refill Division of Rheumatology in Pedro Donnelly APRN, Med Refill [place], [place] C.N.P. [address] [facility] [address] [place] [address] [place] [address] [phone] (Wo rk) Social History Tobacco Use Types [...] How often do you attend jewish or methodist services? Never 09/23/2021 Do you belong to [...] place to sleep or slept in a skilled nursing (including now)? Education Answer Date Recorded What is the highest level of school you have completed or 12 th grade 06/17/2019 the highest degree you have received? Sex Assigned at Date Recorded Female 03/09/2018 3:30 PM CDT documented as of this encounter Miscellaneous Notes Telephone Encounter - Joanne Padilla R.N. - 05/05/2022 8:57 AM CDT Prescription renewal request for hydroxychloroquine (Plaquenil) received from pharmacy. HISTORY OF PRESENT ILLNESS Last Rheum visit: 09/23/2021 with Pedro Donnelly APRN, POPEYE Future office visit: ordered, not yet scheduled Last monitoring labs/eye exam: 06/03/2021: within protocol parameters. Prescription request does not match current plan of care. Prescription request matches a current prescription in the Medication List. Exclusion criteria: None ASSESSMENT/PLAN Prescription request pended for provider review due to requested prescription does not match plan ofcare. 09/23/2021 documented in this encounter Plan of Treatment Upcoming Encounters Date Type Specialty Care Team Description 07/08/2022 Appointment Laboratory Medicine Pedro Donnelly APRN, C.N.P. [address] [place] [phone] (Claudia vera) 07/08/2022 Office Visit Gastroenterology and Collin Trivedi Hepatology [place] [address] [place] [phone] (Claudia vera) documented as of this encounter Visit Diagnoses Not on filedocumented in this encounter Care Teams Toeing Stockings Relationship Specialty Start Date End Date Elsewhere, Pcp PCP - General Family Medicine 03/25/21 documented as of this encounter
--- OUTSIDE RECORDS SUMMARY | 2022-05-22 15:59 | XMS_ITS | Encounter Summary ---
:1965 Author Organization [facility] Address [address] [place] [address] Care Team Providers Name Role Phone Elsewhere, Pcp Primary Care Provider Unavailable Reason for Visit Reason Comments Med Refill Encounter Details Date Type Department Care Team Description 12/07/2021 [facility] [place], [place] Chloe [address] [facility] [address] [place] [address] [place], [place] [phone] (Wo rk) Social History Tobacco Use Types [...] er 09/23/2021 How often do you attend adventist or jewish services? Never 09/23/2021 Do you belong to any clubs or organizations such as No 09/23/2021 adventist groups, unions, fraternal or athletic groups, or [...] Description 07/08/2022 Appointment Laboratory Medicine Pedro Donnelly, SPORTS DIRECTOR, C.N.P. [address] [place] [phone] (Claudia vera) 07/08/2022 Office Visit Gastroenterology and Collin Trivedi, Hepatology M.DSarina [address] [place] [phone] (Claudia vera) documented as of this encounter Visit Diagnoses Not on filedocumented in this encounter Care Teams Candy Separator Enrobing Relationship Specialty Start Date End Date Elsewhere, Pcp PCP - General Family Medicine 03/25/21 documented as of this encounter
--- OUTSIDE RECORDS SUMMARY | 2022-05-22 15:59 | XMS_ITS | Encounter Summary ---
:1965 Author Organization [facility] Address [address] [place] [address] Care Team Providers Name Role Phone Elsewhere, Pcp Primary Care Provider Unavailable Encounter Details Date Type Department Care Team Description 01/10/2022 Hospital Encounter Department of Pedro Donnelly Medicalma delia ion Therapy Laboratory Medicine R, POULTRY SCIENTIST, C.N .P. Polyethylene Bag Machine Operator Not in [place], [facility] [address] [address] [place], [place] [phone] (Work) [phone] Social History Tobacco Use Types Packs/Day Years [...] er 09/23/2021 How often do you attend cheondoism or jew services? Never 09/23/2021 Do you belong to any clubs or organizations such as No 09/23/2021 cheondoism groups, unions, fraternal or athletic groups, or [...] BY Lupus Systemic MOUTH DAILY. Erythematosus (HCC) hydrOXYchloroQUINE TAKE 2 TABLETS BY 180 tablet 1 09/18/2021 05/05/2022 (PLAQUENIL) 200 mg tablet MOUTH DIRECTED. TAKE 1 TAB DAILY FOR 2 WEEKS THEN 2 TABS DAILY. documented as of this encounter Plan of Treatment Upcoming Encounters Date Type Specialty Care Team Description 07/08/2022 Appointment Laboratory Medicine Pedro Donnelly APRN, C.N.P. [address] [place] [address] (Claudia rk) 07/08/2022 Office Visit Gastroenterology and Collin Trivedi, Hepatology MAyala [address] [place] [phone] (Claudia rk) documented as of this encounter Procedures Procedure Name Priority Date/Time Associated Diagnosis Comme nts CBC WITH DIFFERENTIAL, B Routine 01/10/2022 9:24 Medication Th erapy Results for this AM CDT [facility] Not procedure are in Anticoagulant the results section. ASPARTATE Routine 01/10/2022 9:24 Medication Therapy Result s for this AMINOTRANSFERASE (AST), AM CDT Polyethylene Bag Machine Operator Not pro cedure are in S/P Anticoagulant the results section. documented in this encounter Results AST (Aspartate Aminotransferase) (01/10/2022 9:24 AM CDT) [facility] Method Time Signature Aspartate 19 8 - 43 01/10/2022 [place] Aminotransferase U/L 11:30 AM CDT (AST), P Specimen Anatomical Collection Method Collection Time Receive d Time (Source) Location / / Volume Laterality Blood (Blood, 01/10/2022 9:24 AM 01/11/20 22 Venous) CDT 11:03 AM CDT Pedro Donnelly APRN, C.N.P. LAB BLOOD ADD-ON Performing Organization Address City/State/ZIP Code Phon e Number [facility]- [address] [place] [address] [place] [address] System in [place] [address] (ABNORMAL) CBC with Differential, Blood (01/10/2022 9:24 AM CDT) [facility] Zo[facility] Method Time Signature Hemoglobin 13.3 11.6 - [...] Blood (Blood, 01/10/2022 9:24 AM 01/11/20 22 9:24 Venous) CDT AM CDT Pedro Donnelly APRN, C.N.P. LAB BLOOD ADD-ON Performing Organization Address City/State/ZIP Code Phon e Number [address] [place] [address] [facility] [address] [place] [address] documented in this encounter Visit Diagnoses Diagnosis Medication Therapy [facility] Not Anticoa gulant documented in this encounter Care Teams Document Imaging Specialist Relationship Specialty Start Date End Date Elsewhere, Pcp PCP - General Family Medicine 03/25/21 documented as of this encounter
--- OUTSIDE RECORDS SUMMARY | 2022-05-22 15:59 | XMS_ITS | Encounter Summary ---
:1965 Author Organization [facility] Address [address] [place] [address] Care Team Providers Name Role Phone Elsewhere, Pcp Primary Care Provider Unavailable Reason for Visit Reason Comments Lab Monitoring Encounter Details Date Type Department Care Team Description 05/14/2022 Documentation Division of Rheumatology Meg Guzmán, Lab Monitoring in [facility] R.N. [address] [facility] [address] [place] [address] [place], [place] [phone] Social History Tobacco Use Types Packs/Day Years [...] er 09/23/2021 How often do you attend worship or sikh services? Never 09/23/2021 Do you belong to any clubs or organizations such as No 09/23/2021 worship groups, unions, fraternal or athletic groups, or [...] PM CDT documented as of this encounter Progress Notes Vesna Guzmán R.N. - 05/14/2022 9:51 AM CDT ASSESSMENT Rheumatology monitoring labs completed on 05/08/2022 for azathioprine (Imuran) monitoring were reviewed per [...] Description 07/08/2022 Appointment Laboratory Medicine Pedro Donnelly, BAND MANAGER, C.N.P. [address] [place] [phone] (Claudia vera) 07/08/2022 Office Visit Gastroenterology and Collin Trivedi Hepatology [place] [address] [place] [phone] (Claudia vera) Scheduled Orders Name Type Priority Associated Diagnoses Order S chedule CBC with Lab Routine Medication Therapy Tribal Delegate Expected: 07/08/2022, Differential, Blood Not Anticoagulant Exp ires: 07/08/2023 AST (Aspartate Lab Routine Medication Therapy Long Te rm Expected: 07/08/2022, Aminotransferase) Not Anticoagulant Expir es: 07/08/2023 documented as of this encounter Visit Diagnoses Diagnosis Medication Therapy Mcc Not Anticoa gulant - Primary documented in this encounter Care Teams Supervisor Rework Relationship Specialty Start Date End Date Elsewhere, Pcp PCP - General Family Medicine 03/25/21 documented as of this encounter
--- OUTSIDE RECORDS SUMMARY | 2022-05-22 16:00 | XMS_ITS | Encounter Summary ---
:1965 Author Organization [facility] Address [address] [place] [address] Care Team Providers Name Role Phone Elsewhere, Pcp Primary Care Provider Unavailable Reason for Visit Reason Comments Lab Monitoring Encounter Details Date Type Department Care Team Description 09/13/2021 Clinical Communication Division of Saji Guzmán onitoring Rheumatology in [place], [place] [address] [facility] [address] [place] [phone] [phone] Social History Tobacco Use Types Packs/Day Years [...] er 09/23/2021 How often do you attend gnosticism or alevism services? Never 09/23/2021 Do you belong to any clubs or organizations such as No 09/23/2021 gnosticism groups, unions, fraternal or athletic groups, or [...] place to sleep or slept in a jail (including now)? Education Answer Date Recorded What is the highest level of school you have completed or 12 th grade 06/17/2019 the highest degree you have received? Sex Assigned at Date Recorded Female 03/09/2018 3:30 PM CDT documented as of this encounter Miscellaneous Notes Telephone Encounter - Vesna Guzmán R.N. - 09/13/2021 9:16 AM PAPER SPOOLER ASSESSMENT Rheumatology monitoring labs completed on 09/12/2021 for azathioprine (Imuran) monitoring were reviewed per provider order. Labs reviewed: absolute neutrophil count, AST, hemoglobin, leukocytes, platelets Labs outside parameters: platelets 93 Labs viewable in Labs tab. PLAN Provider notified of abnormal lab(s). R SPOOLER documented in this encounter Plan of Treatment Upcoming Encounters Date Type Specialty Care Team Description 07/08/2022 Appointment Laboratory Medicine Pedro Donnelly APRN, C.N.P. [address] [place] [phone] (Claudia vera) 07/08/2022 Office Visit Gastroenterology and Collin Trivedi Hepatology M.DSarina [address] [place] [phone] (Claudia vera) documented as of this encounter Results AST (Aspartate Aminotransferase) (11/11/2021 9:39 AM PAPER SPOOLER) [facility] gist Method Time Signature Aspartate 18 8 - 43 11/11/2021 DTL Aminotransferase U/L 10:46 AM PAPER SPOOLER (AST), S Specimen Anatomical Collection Method Collection Time Receive d Time (Source) Location / / Volume Laterality Blood (Blood, 11/11/2021 9:39 AM 11/12/19 22 Venous) PAPER SPOOLER 10:25 AM PAPER SPOOLER Pedro Donnelly APRN, C.N.P. LAB BLOOD ADD-ON Performing Organization Address City/State/ZIP Code Phon e Number [facility] - [address] [place], [place] [address] [facility] [place] [address] Laboratories-[facility] [address] [facility] (ABNORMAL) CBC with Differential, Blood (11/11/2021 9:39 AM PAPER SPOOLER) [facility] gist Method Time Signature Hemoglobin 12.0 11.6 - 11/11/2021 DTL 15.0 g/dL 10:17 AM PAPER SPOOLER Hematocrit 34.6 (L) 35.5 - 11/11/2021 DTL 44.9 % 10:17 AM PAPER SPOOLER Erythrocytes 3.82 (L) 3.92 - 11/11/2021 DTL 5.13 10:17 AM PAPER SPOOLER x10(12)/L MCV 90.6 78.2 - 11/11/2021 DTL 97.9 fL 10:17 AM PAPER SPOOLER RBC Distrib Width 14.3 12.2 - 11/11/2021 DTL 16.1 % 10:17 AM PAPER SPOOLER Platelet Count 115 (L) 157 - 371 11/11/2021 DTL x10(9)/L 10:17 AM PAPER SPOOLER Leukocytes 4.2 3.4 - 9.6 11/11/2021 DTL x10(9)/L 10:17 AM PAPER SPOOLER Neutrophils 3.07 1.56 - 11/11/2021 DTL 6.45 10:17 AM PAPER SPOOLER x10(9)/L Lymphocytes 0.78 (L) 0.95 - 11/11/2021 DTL 3.07 10:17 AM PAPER SPOOLER x10(9)/L Monocytes 0.32 0.26 - 11/11/2021 DTL 0.81 10:17 AM PAPER SPOOLER x10(9)/L Eosinophils 0.05 0.03 - 11/11/2021 DTL 0.48 10:17 AM PAPER SPOOLER x10(9)/L Basophils <0.03 0.01 - 11/11/2021 DTL 0.08 10:17 AM PAPER SPOOLER x10(9)/L Specimen Anatomical Collection Method Collection Time Receive d Time (Source) Location / / Volume Laterality Blood (Blood, 11/11/2021 9:39 AM 11/12/19 22 Venous) PAPER SPOOLER 10:01 AM PAPER SPOOLER Pedro Donnelly APRN, C.N.P. LAB BLOOD ADD-ON Performing Organization Address City/State/ZIP Code Phon e Number [facility] - [address] [place], [place] [address] [facility] [place] [address] [facility] [address] [facility] (ABNORMAL) CBC with Differential, Blood (09/23/2021 1:52 PM PAPER SPOOLER) [facility] gist Method Time Signature Hemoglobin 12.4 11.6 - 09/23/2021 DTL 15.0 g/dL 2:39 PM PAPER SPOOLER Hematocrit 36.3 35.5 - 09/23/2021 DTL 44.9 % 2:39 PM PAPER SPOOLER Erythrocytes 3.98 3.92 - 09/23/2021 DTL 5.13 2:39 PM PAPER SPOOLER x10(12)/L MCV 91.2 78.2 - 09/23/2021 DTL 97.9 fL 2:39 PM PAPER SPOOLER RBC Distrib Width 13.8 12.2 - 09/23/2021 DTL 16.1 % 2:39 PM PAPER SPOOLER Platelet Count 141 (L) 157 - 371 09/23/2021 DTL x10(9)/L 2:39 PM PAPER SPOOLER Leukocytes 4.9 3.4 - 9.6 09/23/2021 DTL x10(9)/L 2:39 PM PAPER SPOOLER Neutrophils 3.85 1.56 - 09/23/2021 DTL 6.45 2:39 PM PAPER SPOOLER x10(9)/L Lymphocytes 0.72 (L) 0.95 - 09/23/2021 DTL 3.07 2:39 PM PAPER SPOOLER x10(9)/L Monocytes 0.26 0.26 - 09/23/2021 DTL 0.81 2:39 PM PAPER SPOOLER x10(9)/L Eosinophils 0.04 0.03 - 09/23/2021 DTL 0.48 2:39 PM PAPER SPOOLER x10(9)/L Basophils 0.03 0.01 - 09/23/2021 DTL 0.08 2:39 PM PAPER SPOOLER x10(9)/L Specimen Anatomical Collection Method Collection Time Receive d Time (Source) Location / / Volume Laterality Blood (Blood, 09/23/2021 1:52 PM 09/23/19 2:14 Venous) PAPER SPOOLER PM PAPER SPOOLER Robert Kumar APRNNSarinaPSarina LAB BLOOD ADD-ON Performing Organization Address City/State/[facility] Code Phon e Number [facility] - [address] [place], [place] [address] [facility] [place] [address] Laboratories-[facility] [address] documented in this encounter Visit Diagnoses Diagnosis Medication Therapy Mcfp Not Anticoa gulant - Primary documented in this encounter Care Teams Analytical Lead Relationship Specialty Start Date End Date Elsewhere, Pcp PCP - General Family Medicine 03/25/21 documented as of this encounter
--- OUTSIDE RECORDS SUMMARY | 2022-05-22 16:00 | XMS_ITS | Encounter Summary ---
:1965 Author Organization [facility] Address [address] [place] [address] Care Team Providers Name Role Phone Elsewhere, Pcp Primary Care Provider Unavailable Reason for Visit Outpatient (Routine) - Closed Specialty Diagnoses / Procedures Referred By Contact Refer red To Contact Diagnoses Pain Abdominal Wall Collin Trivedi M.D. [facility] Procedures PMR Trigger Point Injection (Procedure Only) [address] [place] [address] Referral ID Status Reason Start Date Expiration Date Visits Requ ested Visits Authorized [id number] Closed 04/19/2021 04/19/2022 1 1 Encounter Details Date Type Department Care Team Description 05/14/2021 Procedure visit Department of Physical GroggEladio, Myalgia Medicine and Rehabilitation Chloe in [facility] [address] [facility] [address] [place] [address] [phone] Social History Tobacco Use Types Packs/Day Years [...] er 09/23/2021 How often do you attend buddhist or faith services? Never 09/23/2021 Do you belong to any clubs or organizations such as No 09/23/2021 buddhist groups, unions, fraternal or athletic groups, or [...] place to sleep or slept in a alf (including now)? Education Answer Date Recorded What is the highest level of school you have completed or 12 th grade 06/17/2019 the highest degree you have received? Sex Assigned at Date Recorded Female 03/09/2018 3:30 PM CDT documented as of this encounter Procedure Notes Eladio Roman M.D. - 05/14/2021 9:00 AM CDTAssociated Order(s): PMR Trigger Point Injection (Procedure Only) Pre-Procedure Diagnose(s): Myalgia Post-Procedure Diagnose(s): Myalgia Referring provider (questions about ongoing care or repeat injections should be directed here): Collin Trivedi M.D. PMR Trigger Point Injection (Procedure Only) (Left abdominal wall) Date/Time: 05/14/2021 9:17 AM Performed by: Eladio Roman M.D. Authorized by: Collin Trivedi M.D. Care team members present 1. Hayde Lima 3. Eladio Roman M.D. PROCEDURE SUMMARY Pre procedure pain score: 5/10 Post procedure pain score: 0/10 Soft tissue site: left abdominal wall Abdominal wall: Left upper quadrant - rectus abdominus Abdominal wall position: supine Needle size: 25 G Needle length: 2 in Number of muscles injected: 1 or 2 muscles IMAGING Ultrasound image guidance used to localize target, identify at risk structures, and dynamically usedto direct therapy to the target. Image(s) acquired and saved. Ultrasound probe (MHz): linear mid-frequency Needle visualization: in-plane INJECTED MEDICATIONS The injected medication(s) listed was divided equally between the identified injection location(s) 3 mL lidocaine 10 mg/mL (1 %) 2 mg dexAMETHasone 4 mg/mL PROCEDURE DETAILS Abdominal wall procedure description:The patient was placed in the appropriate position. Prior to the procedure, the appropriate abdominal wall region was examined to determine the location of the trigger point(s) and optimal needle path. Thereafter, a needle was advanced into the trigger point(s) andafter negative aspiration, the medication was injected. Following the injection, the needle was withdrawn. The patient tolerated the procedure well and there were no apparent complications. After an appropriate amount of observation, the patient was dismissed from the clinic in good condition under their own power. Complications: no apparent complications ADDITIONAL PROCEDURE COMMENTS Injection hotel maintenance technician/nurse was present for assistance during the procedure. Additional instructions: Avoid submersion of procedure site for 24 hours. Any medication remaining in a vial was discarded. Medication wasted detail (if any): PPE used (information for possible contact monitoring): Provider was wearing a mask and eye protection throughout entire session, as was injection ophthalmic assistant any resident present. Patient was wearing a mask throughout entire session. CONSENT Consent obtained: written and verbal UNIVERSAL PROTOCOL All relevant documentation and testing were reviewed and available. All required blood products, implants, devices and or special equipment were made available as applicable. Pre-procedure verificationwas conducted and the correct site was marked if required. A fire risk assessment was done as applicable. The procedural time-out was conducted prior to performing the procedure and confirmed in a procedural pause. PRE-PROCEDURE DETAILS Appropriate hand hygiene, gown, cap, mask, protective eyewear, sterile gloves, skin preparation, sterile drape, and strict aseptic technique were utilized as applicable for the procedure.: hand hygieneperformed Skin preparation: Chlorhexidine documented in this encounter Plan of Treatment Upcoming Encounters Date Type Specialty Care Team Description 07/08/2022 Appointment Laboratory Medicine Pedro Donnelly, ANTHONY, C.N.P. [address] [place] [address] (Wo rk) 07/08/2022 Office Visit Gastroenterology and Collin Trivedi, Hepatology Chloe [address] [place] [address] (Wo rk) documented as of this encounter Procedures Procedure Name Priority Date/Time Associated Diagnosis Comme nts CT US GUIDE PLC NDL Routine 05/14/2021 9:17 AM Myalgia Re sults for this CDT procedure are i n the results section. CT INJ TRIGGER Routine 05/14/2021 9:17 AM Myalgia Results for this PNT<=2 MUS CDT procedure are i n the results section. documented in this encounter Results CT INJ TRIGGER PNT<=2 MUS, CT US GUIDE PLC NDL (05/14/2021 9:17 AM CDT) Specimen (Source) Anatomical Location Collection Method / Collectio n Time Received Time / Laterality Volume Narrative MMODAL - 05/14/2021 9:17 AM CDT Eladio Roman M.D. ? 05/14/2021 ??9:21 AM PMR Trigger Point Injection (Procedure O nly) (Left abdominal wall) Date/Time: 05/14/2021 9:17 AM Performed by: Eladio Roman M.D. Authorized by: Collin Trivedi M.D. Care team members present 1. Hayde Lima 3. Eladio Roman M.D. PROCEDURE SUMMARY Pre procedure pain score: 5/10 Post procedure pain score: 0/10 Soft tissue site: left abdominal wall Abdominal wall: Left upper quadrant - re ctus abdominus Abdominal wall position: supine Needle size: 25 G Needle length: 2 in Number of muscles injected: 1 or 2 muscl es IMAGING Ultrasound image guidance used to locali ze target, identify at risk structures, and dynamically used to dire ct therapy to the target. Image(s) acquired and saved. Ultrasound probe (MHz): linear mid-frequ ency Needle visualization: in-plane INJECTED MEDICATIONS The injected medication(s) listed was di vided equally between the identified injection location(s) ?? 3 mL lidocaine 10 mg/mL (1 %) 2 mg dexAMETHasone 4 mg/mL PROCEDURE DETAILS Abdominal wall procedure description:The patient was placed in the appropriate position. Prior to the proce dure, the appropriate abdominal wall region was examined to determine th e location of the trigger point(s) and optimal needle path. Thereafter, a n eedle was advanced into the trigger point(s) and after negative aspi ration, the medication was injected. Following the injection, the n eedle was withdrawn. ??The patient tolerated the procedure well and there w ere no apparent complications. ?? After an appropriate amount of observati on, the patient was dismissed from the clinic in good condition under their own power. ?? Complications: no apparent complications ?? ADDITIONAL PROCEDURE COMMENTS Injection hotel maintenance technician/nurse was present f or assistance during the procedure. Additional instructions: Avoid submersio n of procedure site for 24 hours. Any medication remaining in a vial was d iscarded. Medication wasted detail (if any): PPE used (information for possible conta ct monitoring): Provider was wearing a mask and eye protection throug hout entire session, as was injection ophthalmic assistant any resident present . Patient was wearing a mask throughout entire session. CONSENT Consent obtained: written and verbal UNIVERSAL PROTOCOL All relevant documentation and testing w ere reviewed and available. All required blood products, implants, devic es and or special equipment were made available as applicable. Pre-proced ure verification was conducted and the correct site was marked if required. A fire risk assessment was done as applicable. The procedural time-out w as conducted prior to performing the procedure and confirmed in a procedu ral pause. PRE-PROCEDURE DETAILS Appropriate hand hygiene, gown, cap, mas k, protective eyewear, sterile gloves, skin preparation, sterile drape, and strict aseptic technique were utilized as applicable for the procedure .: hand hygiene performed ?? Skin preparation: ??Chlorhexidine Collin Trivedi M.D. PROCEDURE/MINOR SURGICAL ORD ERABLES Performing Organization Address City/State/ZIP Code Phon e Number MM[facility]AL MM[facility]AL NA documented in this encounter Visit Diagnoses Diagnosis Myalgia documented in this encounter Administered Medications Inactive Administered Medications - up to 3 most recent administrations Medication Order MAR Action Action Date Dose Rate Site dexAMETHasone injection 2 mg Given 05/14/2021 9:17 AM CDT 2 mg (DECADRON) 2 mg, injection, One-Time Injection, Starting on Thu05/14/21 at 0917, For 1 dose lidocaine 10 mg/mL (1 %) injection 3 mL Given 05/14/2021 9:17 AM CDT 3 mL (XYLOCAINE) 3 mL, injection, One-Time Injection, Starting on Thu05/14/21 at 0917, For 1 dose documented in this encounter Care Teams Counseling Center Director Relationship Specialty Start Date End Date Elsewhere, Pcp PCP - General Family Medicine 03/25/21 documented as of this encounter
--- OUTSIDE RECORDS SUMMARY | 2022-05-22 16:00 | XMS_ITS | Encounter Summary ---
:1965 Author Organization [facility] Address [address] [place] [address] Care Team Providers Name Role Phone Elsewhere, Pcp Primary Care Provider Unavailable Encounter Details Date Type Department Care Team Description 07/16/2021 Clinical Communication Division of Pedro Donnelly, Rheumat[facility] [place], [place] [address] [facility] [address] [place] [phone] Social History Tobacco Use Types Packs/Day Years [...] How often do you attend christianity or congregation services? Never 09/23/2021 Do you belong to [...] documented as of this encounter Miscellaneous Notes Addendum Note - Ava Blancas R.N. - 07/16/2021 12:18 PM SUPERVISOR COVERING [employer] LINING Addended by: AVA BLANCAS on: 07/16/2021 12:18 PM Modules accepted: Orders [employer] Telephone Encounter - Ava Blancas R.N. - 07/16/2021 12:18 PM SUPERVISOR COVERING [employer] LINING Azathioprine monitoring labs ordered for 07/18/21 for [facility]. [employer] Telephone Encounter - Janie Bang - 07/16/2021 10:59 AM CST Caller/authorization: Vee Provider/nurse: Cony Reason for call: monitoring labs, patient was schedule for labs prior to appt w/ Dr. Bal on 07/17. Note from nursing says monitoring labs were scheduled on 07/17. I do not see the monitoring labs ordered. Appointment with Dr. Bal had to be rescheduled. Labs reviewed: absolute neutrophil count, AST, hemoglobin, leukocytes, platelets Patient next due for monitoring labs in two months. Next labs already scheduled for 07/17/2021 with provider visit. Please order the monitoring labs, patient will have them done in [place] on 07/18 Follow-up requested: no Patient portal Y/N/Offered Information: Preferred response (portal/phone): [employer] documented in this encounter Plan of Treatment Upcoming Encounters Date Type Specialty Care Team Description 07/08/2022 Appointment Laboratory Medicine Pedro Donnelly APRN, C.N.P. [address] [place] [phone] (Wo rk) 07/08/2022 Office Visit Gastroenterology and Collin Trivedi, Hepatology MAyala [address] [place] [phone] (Wo rk) documented as of this encounter Results AST (Aspartate Aminotransferase) (07/18/2021 12:32 PM SUPERVISOR COVERING [employer] LINING) [facility] Method Time Signature Aspartate 19 8 - 43 07/18/2021 OWAT Aminotransferase U/L 4:17 PM SUPERVISOR COVERING [employer] LINING (AST), P Specimen Anatomical Collection Method Collection Time Receive d Time (Source) Location / / Volume Laterality Blood (Blood, 07/18/2021 12:32 07/18/2021 3:36 Venous) PM [employer]ING PM [employer]ING Landon Bal M.D. LAB BLOOD ADD-ON Performing Organization Address City/State/ZIP Code Phon e Number [facility]- [address] [place] [address] [facility] [place] [address] System in [place] [address] (ABNORMAL) CBC with Differential, Blood (07/18/2021 12:32 PM SUPERVISOR COVERING [employer] LINING) [facility] Method Time Signature Hemoglobin 11.8 11.6 - 07/18/2021 FB60 15.0 g/dL 12:38 PM SUPER[employer]OVERING [employer]ING Hematocrit 34.0 (L) 35.5 - 07/18/2021 FB60 44.9 % 12:38 PM SUPERVIS[employer]OVERING [employer] LINING Erythrocytes 3.78 (L) 3.92 - 07/18/2021 FB60 5.13 12:38 PM SUPER[employer]OVERING [employer] LINING x10(12)/L MCV 89.9 78.2 - 07/18/2021 FB60 97.9 fL 12:38 PM SUPER[employer]ING [employer] LINING RBC Distrib Width 14.9 12.2 - 07/18/2021 FB60 16.1 % 12:38 PM SUPER[employer]OVERING [employer] LINING Platelet Count 109 (L) 157 - 371 07/18/2021 FB60 x10(9)/L 12:38 PM SUPER[employer]ING [employer] LINING Leukocytes 4.2 3.4 - 9.6 07/18/2021 FB60 x10(9)/L 12:38 PM SUPER[employer]OVERING [employer]ING Neutrophils 3.02 1.56 - 07/18/2021 FB60 6.45 12:38 PM SUPER[employer]OVERING [employer] LINING x10(9)/L Lymphocytes 0.70 (L) 0.95 - 07/18/2021 FB60 3.07 12:38 PM SUPERVIS[employer]OVERING [employer] LINING x10(9)/L Monocytes 0.35 0.26 - 07/18/2021 FB60 0.81 12:38 PM SUPER[employer]OVERING [employer] LINING x10(9)/L Eosinophils 0.07 0.03 - 07/18/2021 FB60 0.48 12:38 PM SUPER[employer]OVERING [employer] LINING x10(9)/L Basophils 0.01 0.01 - 07/18/2021 FB60 0.08 12:38 PM SUPERVIS[employer]OVERING [employer] LINING x10(9)/L Specimen Anatomical Collection Method Collection Time Receive d Time (Source) Location / / Volume Laterality Blood (Blood, 07/18/2021 12:32 07/18/2021 Venous) PM [employer] LINING 12:33 PM [employer]PER[employer]OVERING [employer] LINING Landon Bal M.D. LAB BLOOD ADD-ON Performing Organization Address City/State/ZIP Code Phon e Number [facility]- [facility] [place] [address] [facility] [address] [place] [address] System in [place] [address] documented in this encounter Visit Diagnoses Diagnosis Medication Therapy Halfway Not Anticoa gulant - Primary documented in this encounter Care Teams Captain Fishing Vessel Relationship Specialty Start Date End Date Elsewhere, Pcp PCP - General Family Medicine 03/25/21 documented as of this encounter
--- OUTSIDE RECORDS SUMMARY | 2022-05-22 16:00 | XMS_ITS | Encounter Summary ---
:1965 Author Organization [facility] Address [address] [place] [address] Care Team Providers Name Role Phone Elsewhere, Pcp Primary Care Provider Unavailable Encounter Details Date Type Department Care Team Description 06/03/2021 Documentation Department of Ophthalmology Opaling Ashlee truong in [facility] ki Patterson O.D. [address] [facility] [address] [place] [address] [place], [place] [phone] (Wo rk) Social History Tobacco Use Types [...] often do you attend jehovah's witness or sikh services? Never 09/23/2021 Do you [...] documented as of this encounter Progress Notes Neema Akers O.D. - 06/03/2021 9:56 AM CDT Vee Danielson I have reviewed the hydroxychloroquine / plaquenil retinal testing including macular optical coherence tomography, fundus autofluoresence, and automated 10-2 visual field testing and there is no clear evidence of retinal toxicity. This screening evaluation does not evaluate for other ocular disease, so all other recommended ocular follow-up care should continue as scheduled, and a face to face evaluation with your eye rn long term care is recommended if you have decreased vision. Follow-up hydroxychloroquine retinal toxicity screening should be scheduled in 1 year. Clinical testing interpretation: OCT macula Retinal pigment epithelium: wnl both eyes Retina: wnl both eyes Interdigitation zone: poorly defined both eyes Ellipsoid zone: wnl both eyes Fundus autofluoresence wnl both eyes Visual field 10-2 wnl both eyes documented in this encounter Plan of Treatment Upcoming Encounters Date Type Specialty Care Team Description 07/08/2022 Appointment Laboratory Medicine Pedro Donnelly, DIRECTOR SOCIAL WELFARE, C.N.P. [address] [place] [phone] (Claudia vera) 07/08/2022 Office Visit Gastroenterology and Collin Trivedi Hepatology MAyala [address] [place] [phone] (Wo rk) documented as of this encounter Visit Diagnoses Not on filedocumented in this encounter Care Teams Office Helper Relationship Specialty Start Date End Date Elsewhere, Pcp PCP - General Family Medicine 03/25/21 documented as of this encounter
--- OUTSIDE RECORDS SUMMARY | 2022-05-22 16:00 | XMS_ITS | Encounter Summary ---
:1965 Author Organization [facility] Address [address] [place] [address] Care Team Providers Name Role Phone Elsewhere, Pcp Primary Care Provider Unavailable Reason for Referral Outpatient (Routine) - Authorized Specialty Diagnoses / Procedures Referred By Contact Refer red To Contact Diagnoses Cirrhosis Nonalcoholic (HCC) Collin Trivedi M.D. [facility] Procedures BMD Bone Density Spine Hips [address] [place] [address] Referral ID Status Reason Start Date Expiration Date Visits V isits Requested Authorized [id number] Authorized 05/24/2021 05/24/2022 1 1 Encounter Details Date Type Department Care Team Description 05/24/2021 Orders Only Division of Shikha, Cirrhosis Gastroenterology in James Hernández Nonalcoholic (HCC) [place], [place] [address] [facility] (Primary Dx) [address] [place] [phone] Social History Tobacco Use Types Packs/Day Years [...] How often do you attend congregation or alevism services? Never 09/23/2021 Do you [...] Description 07/08/2022 Appointment Laboratory Medicine Pedro Donnelly, FUDGER, C.N.P. [address] [place] [phone] (Claudia vera) 07/08/2022 Office Visit Gastroenterology and Collin Triveid Hepatology MSarinaDSarina [address] [place] [address] (Claudia vera) Scheduled Orders Name Type Priority Associated Diagnoses Order S chedule BMD Bone Density Imaging RAD - Routine (most Cirrhosis Nonalco holic Expected: Spine Hips inpatients and all (HCC) 6 outpatients) (Approximate), Expires: 05/24/2028 documented as of this encounter Visit Diagnoses Diagnosis Cirrhosis Nonalcoholic (HCC) - Primary documented in this encounter Care Teams Apple Picker Relationship Specialty Start Date End Date Elsewhere, Pcp PCP - General Family Medicine 03/25/21 documented as of this encounter
--- OUTSIDE RECORDS SUMMARY | 2022-05-22 16:00 | XMS_ITS | Encounter Summary ---
:1965 Author Organization [facility] Address [address] [place] [address] Care Team Providers Name Role Phone Elsewhere, Pcp Primary Care Provider Unavailable Reason for Visit Reason Comments Lab Monitoring Encounter Details Date Type Department Care Team Description 05/20/2021 Documentation Division of Rheumatology Meg Guzmán, Lab Monitoring in [facility] R.N. [address] [facility] [address] [place] [address] [place], [place] [phone] Social History Tobacco Use Types Packs/Day Years [...] How often do you attend christianity or anabaptism services? Never 09/23/2021 Do you belong to [...] encounter Progress Notes Vesna Guzmán R.N. - 05/20/2021 2:06 PM CDT ASSESSMENT Rheumatology monitoring labs completed on 05/14/2021 for azathioprine (Imuran) monitoring were reviewed per provider order. All monitored labs are within order range. Labs reviewed: absolute neutrophil count, AST, hemoglobin, leukocytes, platelets Labs viewable in Labs tab. PLAN Patient to continue with current plan of care. Patient next due for monitoring labs in two weeks. documented in this encounter Plan of Treatment Upcoming Encounters Date Type Specialty Care Team Description 07/08/2022 Appointment Laboratory Medicine Pedro Donnelly, ANTHONY, C.N.P. [address] [place] [phone] (Claudia vera) 07/08/2022 Office Visit Gastroenterology and Collin Trivedi, Hepatology M.DSarina [address] [place] [phone] (Claudia vera) documented as of this encounter Results AST (Aspartate Aminotransferase) (05/28/2021 9:30 AM CDT) [facility] gist Method Time Signature Aspartate 21 8 - 43 05/28/2021 OWAT Aminotransferase U/L 11:09 AM CDT (AST), P Specimen Anatomical Collection Method Collection Time Receive d Time (Source) Location / / Volume Laterality Blood (Blood, 05/28/2021 9:30 AM 05/28/20 Venous) CDT 10:43 AM CDT Pedro Donnelly APRN, C.N.P. LAB BLOOD ADD-ON Performing Organization Address City/State/ZIP Code Phon e Number [facility]- [address] [place] [address] [facility] [place] [address] System in [place] [address] (ABNORMAL) CBC with Differential, Blood (05/28/2021 9:30 AM CDT) [facility] Method Time Signature Hemoglobin 10.8 (L) 11.6 - 05/28/2021 OWAT 15.0 g/dL 10:57 AM CDT Hematocrit 33.3 (L) 35.5 - 05/28/2021 OWAT 44.9 % 10:57 AM CDT Erythrocytes 3.62 (L) 3.92 - 05/28/2021 OWAT 5.13 10:57 AM CDT x10(12)/L MCV 92.0 78.2 - 05/28/2021 OWAT 97.9 fL 10:57 AM CDT RBC Distrib Width 16.0 12.2 - 05/28/2021 OWAT 16.1 % 10:57 AM CDT Platelet Count 144 (L) 157 - 371 05/28/2021 OWAT x10(9)/L 10:57 AM CDT Leukocytes 4.4 3.4 - 9.6 05/28/2021 OWAT x10(9)/L 10:57 AM CDT Neutrophils 3.29 1.56 - 05/28/2021 OWAT 6.45 10:57 AM CDT x10(9)/L Lymphocytes 0.59 (L) 0.95 - 05/28/2021 OWAT 3.07 10:57 AM CDT x10(9)/L Monocytes 0.39 0.26 - 05/28/2021 OWAT 0.81 10:57 AM CDT x10(9)/L Eosinophils 0.10 0.03 - 05/28/2021 OWAT 0.48 10:57 AM CDT x10(9)/L Basophils 0.01 0.01 - 05/28/2021 OWAT 0.08 10:57 AM CDT x10(9)/L Specimen Anatomical Collection Method Collection Time Receive d Time (Source) Location / / Volume Laterality Blood (Blood, 05/28/2021 9:30 AM 05/28/20 Venous) CDT 10:41 AM CDT Pedro Donnelly APRN, C.N.P. LAB BLOOD ADD-ON Performing Organization Address City/State/ZIP Code Phon e Number [facility]- [address] [place] [address] [facility] [place] [address] System in [place] [address] documented in this encounter Visit Diagnoses Diagnosis Medication Therapy Assisted Not Anticoa gulant - Primary documented in this encounter Care Teams Attendant Lodging Facilities Relationship Specialty Start Date End Date Elsewhere, Pcp PCP - General Family Medicine 03/25/21 documented as of this encounter
--- OUTSIDE RECORDS SUMMARY | 2022-05-22 16:00 | XMS_ITS | Encounter Summary ---
:1965 Author Organization [facility] Address [address] [place] [address] Care Team Providers Name Role Phone Elsewhere, Pcp Primary Care Provider Unavailable Reason for Visit Reason Comments Lab Monitoring Encounter Details Date Type Department Care Team Description 05/29/2021 Documentation Division of Rheumatology Meg Guzmán, Lab Monitoring in [facility] R.N. [address] [facility] [address] [place] [address] [place], [place] [phone] Social History Tobacco Use Types Packs/Day Years [...] er 09/23/2021 How often do you attend advent or sabianist services? Never 09/23/2021 Do you belong to any clubs or organizations such as No 09/23/2021 advent groups, unions, fraternal or athletic groups, or [...] encounter Progress Notes Vesna Guzmán R.N. - 05/29/2021 12:05 PM CDT ASSESSMENT Rheumatology monitoring labs completed on 05/28/2021 for azathioprine (Imuran) monitoring were reviewed per provider order. All monitored labs are within order range. Labs reviewed: absolute neutrophil count, AST, hemoglobin, leukocytes, platelets Labs viewable in Labs tab. PLAN Patient to continue with current plan of care. Patient next due for monitoring labs in two months. Next labs already scheduled for 07/17/2021 with provider visit. documented in this encounter Plan of Treatment Upcoming Encounters Date Type Specialty Care Team Description 07/08/2022 Appointment Laboratory Medicine Pedro Donnelly, ANODIC OPERATOR, C.N.P. [address] [place] [phone] (Claudia vera) 07/08/2022 Office Visit Gastroenterology and Collin Trivedi Hepatology [place] [address] [place] [phone] (Claudia vera) documented as of this encounter Visit Diagnoses Not on filedocumented in this encounter Care Teams Aesthetics Instructor Relationship Specialty Start Date End Date Elsewhere, Pcp PCP - General Family Medicine 03/25/21 documented as of this encounter
--- OUTSIDE RECORDS SUMMARY | 2022-05-22 16:00 | XMS_ITS | Encounter Summary ---
:1965 Author Organization [facility] Address [address] [place] [address] Care Team Providers Name Role Phone Elsewhere, Pcp Primary Care Provider Unavailable Encounter Details Date Type Department Care Team Description 05/03/2021 Ancillary Procedure Department of Ophthalmology Social History Tobacco Use Types Packs/Day Years [...] How often do you attend jewish or protestant services? Never 09/23/2021 Do you belong to [...] Description 07/08/2022 Appointment Laboratory Medicine Pedro Donnelly, FLIGHT OPERATION COORDINATOR, C.N.P. [address] [place] [address] (Wo rk) 07/08/2022 Office Visit Gastroenterology and Collin Trivedi Hepatology Chloe [address] [place] [phone] (Wo rk) documented as of this encounter Procedures Procedure Name Priority Date/Time Associated Comments Diagnosis OPHTHALMOLOGY IMAGE Routine 05/03/2021 8:35 AM Re sults for this EXAM CDT procedure are i n the results section. documented in this encounter Results Visual Powers (VF) SFA-Ophthalmology Image Exam (05/03/2021 8:35 AM CDT) Specimen (Source) Anatomical Collection Method Collection Time Re ceived Time Location / / Volume Laterality 05/03/2021 8:33 AM CDT Narrative [facility] - 05/03/2021 8:43 AM CDT This order has been created and auto-finalized to support the import of images acquired without order. The clini emily documentation to support these images can be found on the encounter jacey t produced images. Provider Not In System IMG NON RAD IMAGING PROCEDUR ES Performing Organization Address City/State/ZIP Code Phon e Number [facility] NA documented in this encounter Visit Diagnoses Not on filedocumented in this encounter Care Teams Caustic Strength Inspector Relationship Specialty Start Date End Date Elsewhere, Pcp PCP - General Family Medicine 03/25/21 documented as of this encounter
--- OUTSIDE RECORDS SUMMARY | 2022-05-22 16:00 | XMS_ITS | Encounter Summary ---
:1965 Author Organization [facility] Address [address] [place] [address] Care Team Providers Name Role Phone Elsewhere, Pcp Primary Care Provider Unavailable Reason for Visit Reason Comments Med Refill Encounter Details Date Type Department Care Team Description 09/12/2021 Refill Division of Rheumatology in Pedro Donnelly APRN, Med Refill [place], [place] C.N.P. [address] [facility] [address] [place] [address] [place] [address] [phone] (Wo rk) Social History Tobacco Use Types [...] er 09/23/2021 How often do you attend anabaptist or restorationism services? Never 09/23/2021 Do you belong to any clubs or organizations such as No 09/23/2021 anabaptist groups, unions, fraternal or athletic groups, or [...] Telephone Encounter - Lesvia Brizuela R.N. - 09/17/2021 2:17 PM CLEANING TEAM MEMBER Prescription renewal request for azathioprine (Imuran) received from pharmacy. HISTORY OF PRESENT ILLNESS Last Rheum visit: 04/19/2021 with Pedro Donnelly APRN, POPEYE Future office visit: 09/23/2021 Last monitoring labs/eye exam: lab monitoring 09/12/2021: within protocol parameters. Prescription request matches current plan of care. Prescription request matches a current prescription in the Medication List. Exclusion criteria: None ASSESSMENT/PLAN Prescription request renewed per nursing protocol. NING TEAM MEMBER documented in this encounter Plan of Treatment Upcoming Encounters Date Type Specialty Care Team Description 07/08/2022 Appointment Laboratory Medicine Pedro Donnelly APRN, C.N.P. [address] [place] [address] (Claudia vera) 07/08/2022 Office Visit Gastroenterology and Collin Trivedi Hepatology Chloe [address] [place] [address] (Claudia vera) documented as of this encounter Visit Diagnoses Diagnosis Lupus Systemic Erythematosus (HCC) - Afia justice documented in this encounter Care Teams Technical Asst Relationship Specialty Start Date End Date Elsewhere, Pcp PCP - General Family Medicine 03/25/21 documented as of this encounter
--- OUTSIDE RECORDS SUMMARY | 2022-05-22 16:00 | XMS_ITS | Encounter Summary ---
:1965 Author Organization [facility] Address [address] [place] [address] Care Team Providers Name Role Phone Elsewhere, Pcp Primary Care Provider Unavailable Reason for Visit Reason Comments Lab Monitoring New start AZA Encounter Details Date Type Department Care Team Description 05/06/2021 Clinical Communication Division of Avani Celis onitorjaime (New Rheumatology in A, R.N. start AZA) [place], [place] [address] [facility] [address] [place] [phone] Social History Tobacco Use Types Packs/Day Years [...] er 09/23/2021 How often do you attend synagogue or congregational services? Never 09/23/2021 Do you belong to any clubs or organizations such as No 09/23/2021 synagogue groups, unions, fraternal or athletic groups, or [...] place to sleep or slept in a snf (including now)? Education Answer Date Recorded What is the highest level of school you have completed or 12 th grade 06/17/2019 the highest degree you have received? Sex Assigned at Date Recorded Female 03/09/2018 3:30 PM CDT documented as of this encounter Miscellaneous Notes Telephone Encounter - Avani Celis R.N. - 05/08/2021 8:48 AM CDT Noted. No further requirements needed by nursing. Telephone Encounter - Vee Barnes APRN, C.N.P. - 05/06/2021 2:57 PM CDT Okay to recheck in 2 weeks overall labs look slightly better than than 2 weeks ago. Telephone Encounter - Avani Celis R.N. - 05/06/2021 11:59 AM CDT ASSESSMENT Rheumatology monitoring labs completed on 05/03/21 for azathioprine (Imuran) monitoring were reviewedper provider order. Labs reviewed: absolute neutrophil count, AST, hemoglobin, leukocytes, platelets Labs outside parameters: hemoglobin Labs viewable in Labs tab. Hemoglobin has been below 10g/dL since 03/25/21. PLAN Provider notified of abnormal lab(s). documented in this encounter Plan of Treatment Upcoming Encounters Date Type Specialty Care Team Description 07/08/2022 Appointment Laboratory Medicine Pedro Donnelly APRN, C.N.P. [address] [place] [phone] (Wo rk) 07/08/2022 Office Visit Gastroenterology and Collin Trivedi, Hepatology MA[place] [address] [place] [phone] (Wo rk) documented as of this encounter Results AST (Aspartate Aminotransferase) (05/14/2021 9:37 AM CDT) [facility] Method Time Signature Aspartate 19 8 - 43 05/14/2021 DTL Aminotransferase U/L 10:43 AM CDT (AST), S Specimen Anatomical Collection Method Collection Time Receive d Time (Source) Location / / Volume Laterality Blood (Blood, 05/14/2021 9:37 AM 05/14/20 9:58 Venous) CDT AM CDT Pedro Donnelly APRN, C.N.P. LAB BLOOD ADD-ON Performing Organization Address City/State/[facility] Code Phon e Number [facility] - [address] [place] [address] [facility] [place] [address] Laboratories-[facility] 200 [facility] (ABNORMAL) CBC with Differential, Blood (05/14/2021 9:37 AM CDT) [facility] Method Time Signature Hemoglobin 10.1 (L) 11.6 - 05/14/2021 DTL 15.0 g/dL 10:55 AM CDT Hematocrit 31.6 (L) 35.5 - 05/14/2021 DTL 44.9 % 10:55 AM CDT Erythrocytes 3.42 (L) 3.92 - 05/14/2021 DTL 5.13 10:55 AM CDT x10(12)/L MCV 92.4 78.2 - 05/14/2021 DTL 97.9 fL 10:55 AM CDT RBC Distrib Width 17.7 (H) 12.2 - 05/14/2021 DTL 16.1 % 10:55 AM CDT Platelet Count 150 (L) 157 - 371 05/14/2021 DTL x10(9)/L 10:55 AM CDT Leukocytes 4.0 3.4 - 9.6 05/14/2021 DTL x10(9)/L 10:55 AM CDT Neutrophils 2.88 1.56 - 05/14/2021 DTL 6.45 10:55 AM CDT x10(9)/L Lymphocytes 0.64 (L) 0.95 - 05/14/2021 DTL 3.07 10:55 AM CDT x10(9)/L Monocytes 0.32 0.26 - 05/14/2021 DTL 0.81 10:55 AM CDT x10(9)/L Eosinophils 0.10 0.03 - 05/14/2021 DTL 0.48 10:55 AM CDT x10(9)/L Basophils <0.03 0.01 - 05/14/2021 DTL 0.08 10:55 AM CDT x10(9)/L Specimen Anatomical Collection Method Collection Time Receive d Time (Source) Location / / Volume Laterality Blood (Blood, 05/14/2021 9:37 AM 05/14/20 21 Venous) CDT 10:02 AM CDT Pedro Donnelly APRN, C.N.P. LAB BLOOD ADD-ON Performing Organization Address City/State/ZIP Code Phon e Number [facility] - [address] [place], [place] [address] [facility] [place] [address] [facility] [address] documented in this encounter Visit Diagnoses Diagnosis Medication Therapy Gun Number Not Anticoa gulant - Primary documented in this encounter Care Teams College Tutor Relationship Specialty Start Date End Date Elsewhere, Pcp PCP - General Family Medicine 03/25/21 documented as of this encounter
--- OUTSIDE RECORDS SUMMARY | 2022-05-22 16:00 | XMS_ITS | Encounter Summary ---
:1965 Author Organization [facility] Address [address] [place] [address] Care Team Providers Name Role Phone Elsewhere, Pcp Primary Care Provider Unavailable Reason for Referral Outpatient (Routine) - Authorized Specialty Diagnoses / Procedures Referred By Contact Refer red To Contact Research Diagnoses Lupus Erythematosus Magdy Ni [place] M.D. [address] [place], [place] [phone] Referral ID Status Reason Start Date Expiration Date Visits V isits Requested Authorized [id number] Authorized 09/12/2021 09/12/2022 1 1 IC AFFAIRS SPECIALIST Encounter Details Date Type Department Care Team Description 09/12/2021 Orders Only Division of Dalia Ghotra Lupus Erythema tosus Rheumatology in [facility], C.[facility] (Primary Dx) [place], [place] [address] [facility] [address] [place] [phone] Social History Tobacco Use Types Packs/Day Years [...] er 09/23/2021 How often do you attend baptism or adventist services? Never 09/23/2021 Do you belong to any clubs or organizations such as No 09/23/2021 baptism groups, unions, fraternal or athletic groups, or [...] place to sleep or slept in a nursing home (including now)? Education Answer Date Recorded What is the highest level of school you have completed or 12 th grade 06/17/2019 the highest degree you have received? Sex Assigned at Date Recorded Female 03/09/2018 3:30 PM CDT documented as of this encounter Plan of Treatment Upcoming Encounters Date Type Specialty Care Team Description 07/08/2022 Appointment Laboratory Medicine Pedro Donnelly, TOWBOAT OPERATOR, C.N.P. [address] [place] [address] (Claudia vera) 07/08/2022 Office Visit Gastroenterology and Collin Trivedi Hepatology MSarinaDSarina [address] [place] [address] (Claudia rk) Scheduled Referrals Name Type Priority Associated Diagnoses Order S checarlosle Research Study Outpatient Referral Routine Lupus Erythematosus Expected: Coordinator office 2, visit (clinic) Expires: 12/11/2022 documented as of this encounter Results Miscellaneous Research, B (09/23/2021 1:52 PM PUBLIC AFFAIRS SPECIALIST) athologist Signature Number of 5 09/23/2021 HSS Specimens 1:52 PM PUBLIC AFFAIRS SPECIALIST Specimen Anatomical Collection Method Collection Time Receive d Time (Source) Location / / Volume Laterality Varies (Blood, 09/23/2021 1:52 PM 022 1:52 Venous) PUBLIC AFFAIRS SPECIALIST PM PUBLIC AFFAIRS SPECIALIST Magdy Ni M.D. LAB RESEARCH NO RESULT ANDREA HERNÁNDEZ Performing Organization Address City/State/ZIP Code Phon e Number [facility] - [address] [place], [place] [address] [place] [address] [address] documented in this encounter Visit Diagnoses Diagnosis Lupus Erythematosus - Primary documented in this encounter Care Teams Industrial Robotics Mechanic Relationship Specialty Start Date End Date Elsewhere, Pcp PCP - General Family Medicine 03/25/21 documented as of this encounter
--- OUTSIDE RECORDS SUMMARY | 2022-05-22 16:00 | XMS_ITS | Encounter Summary ---
:1965 Author Organization [facility] Address [address] [place] [address] Care Team Providers Name Role Phone Elsewhere, Pcp Primary Care Provider Unavailable Reason for Visit Reason Comments Lab Monitoring AZA Encounter Details Date Type Department Care Team Description 07/19/2021 Documentation Division of Rheumatology Avani Celis, Lab Monitoring (AZA) in [facility] ki R.N. [address] [facility] [address] [place] [phone] [place], [place] [phone] Social History Tobacco Use Types Packs/Day Years [...] er 09/23/2021 How often do you attend confucianism or jew services? Never 09/23/2021 Do you belong to any clubs or organizations such as No 09/23/2021 confucianism groups, unions, fraternal or athletic groups, or [...] place to sleep or slept in a group home (including now)? Education Answer Date Recorded What is the highest level of school you have completed or 12 th grade 06/17/2019 the highest degree you have received? Sex Assigned at Date Recorded Female 03/09/2018 3:30 PM CDT documented as of this encounter Progress Notes Avani Celis R.N. - 07/19/2021 9:49 AM CST ASSESSMENT Rheumatology monitoring labs completed on 07/18/21 for azathioprine (Imuran) monitoring were reviewed per provider order. All monitored labs are within order range. Labs reviewed: absolute neutrophil count, AST, hemoglobin, leukocytes, platelets Labs viewable in Labs tab. PLAN Patient to continue with current plan of care. Patient next due for monitoring labs in two months. GRADING SUPERVISOR documented in this encounter Plan of Treatment Upcoming Encounters Date Type Specialty Care Team Description 07/08/2022 Appointment Laboratory Medicine Pedro Donnelly, KNITTER WIRE MESH, C.N.P. [address] [place] [phone] (Claudia vera) 07/08/2022 Office Visit Gastroenterology and Collin Trivedi, Hepatology MSarinaDSarina [address] [place] [phone] (Claudia vera) documented as of this encounter Results AST (Aspartate Aminotransferase) (09/12/2021 2:10 PM ROSE GRADING SUPERVISOR) [facility] gist Method Time Signature Aspartate 19 8 - 43 09/12/2021 OWAT Aminotransferase U/L 3:56 PM ROSE GRADING SUPERVISOR (AST), P Specimen Anatomical Collection Method Collection Time Receive d Time (Source) Location / / Volume Laterality Blood (Blood, 09/12/2021 2:10 PM 09/12/19 22 3:31 Venous) ROSE GRADING SUPERVISOR PM ROSE GRADING SUPERVISOR Pedro Donnelly APRN, C.N.P. LAB BLOOD ADD-ON Performing Organization Address City/State/ZIP Code Phon e Number [facility]- [address] [place] [address] [facility] [place] [address] System in [place] [address] (ABNORMAL) CBC with Differential, Blood (09/12/2021 2:10 PM ROSE GRADING SUPERVISOR) [facility] Method Time Signature Hemoglobin 11.8 11.6 - 09/12/2021 FB60 15.0 g/dL 2:24 PM ROSE GRADING SUPERVISOR Hematocrit 35.4 (L) 35.5 - 09/12/2021 FB60 44.9 % 2:24 PM ROSE GRADING SUPERVISOR Erythrocytes 3.91 (L) 3.92 - 09/12/2021 FB60 5.13 2:24 PM ROSE GRADING SUPERVISOR x10(12)/L MCV 90.5 78.2 - 09/12/2021 FB60 97.9 fL 2:24 PM ROSE GRADING SUPERVISOR RBC Distrib Width 14.5 12.2 - 09/12/2021 FB60 16.1 % 2:24 PM ROSE GRADING SUPERVISOR Platelet Count 93 (L) 157 - 371 09/12/2021 FB60 x10(9)/L 2:24 PM ROSE GRADING SUPERVISOR Leukocytes 5.7 3.4 - 9.6 09/12/2021 FB60 x10(9)/L 2:24 PM ROSE GRADING SUPERVISOR Neutrophils 4.73 1.56 - 09/12/2021 FB60 6.45 2:24 PM ROSE GRADING SUPERVISOR x10(9)/L Lymphocytes 0.51 (L) 0.95 - 09/12/2021 FB60 3.07 2:24 PM ROSE GRADING SUPERVISOR x10(9)/L Monocytes 0.38 0.26 - 09/12/2021 FB60 0.81 2:24 PM ROSE GRADING SUPERVISOR x10(9)/L Eosinophils 0.02 (L) 0.03 - 09/12/2021 FB60 0.48 2:24 PM ROSE GRADING SUPERVISOR x10(9)/L Basophils 0.01 0.01 - 09/12/2021 FB60 0.08 2:24 PM ROSE GRADING SUPERVISOR x10(9)/L Specimen Anatomical Collection Method Collection Time Receive d Time (Source) Location / / Volume Laterality Blood (Blood, 09/12/2021 2:10 PM 09/12/19 2:23 Venous) ROSE GRADING SUPERVISOR PM ROSE GRADING SUPERVISOR Pedro Donnelly APRN C.N.P. LAB BLOOD ADD-ON Performing Organization Address City/State/ZIP Code Phon e Number [facility] [address] [place], [place] [phone] [place] [address] LAB FB60 [place] [address] [address] documented in this encounter Visit Diagnoses Diagnosis Medication Therapy Long-Term Not Anticoa gulant - Primary documented in this encounter Care Teams Lpn Private Duty Relationship Specialty Start Date End Date Elsewhere, Pcp PCP - General Family Medicine 03/25/21 documented as of this encounter
--- OUTSIDE RECORDS SUMMARY | 2022-05-22 16:00 | XMS_ITS | Encounter Summary ---
:1965 Author Organization [facility] Address [address] [place] [address] Care Team Providers Name Role Phone Elsewhere, [...] er 09/23/2021 How often do you attend muslim or amish services? Never 09/23/2021 Do you belong to any clubs or organizations such as No 09/23/2021 muslim groups, unions, fraternal or athletic groups, or [...] place to sleep or slept in a prison (including now)? Education Answer Date Recorded What is the highest level of school you have completed or 12 th grade 06/17/2019 the highest degree you have received? Sex Assigned at Date Recorded Female 03/09/2018 3:30 PM CDT documented as of this encounter Plan of Treatment Upcoming Encounters Date Type Specialty Care Team Description 07/08/2022 Appointment Laboratory Medicine Pedro Donnelly, NUCLEAR MEDICINE PET CT TECHNOLOGIST, C.N.P. [address] [place] [phone] (Wo rk) 07/08/2022 Office Visit Gastroenterology and Collin Trivedi Hepatology MAyala [address] [place] [phone] (Wo rk) documented as of this encounter Visit Diagnoses Not on filedocumented in this encounter Care Teams Communications Supervisor Relationship Specialty Start Date End Date Elsewhere, Pcp PCP - General Family Medicine 03/25/21 documented as of this encounter
--- OUTSIDE RECORDS SUMMARY | 2022-05-22 16:00 | XMS_ITS | Encounter Summary ---
:1965 Author Organization [facility] Address [address] [place] [address] Care Team Providers Name Role Phone Elsewhere, [...] er 09/23/2021 How often do you attend restoration or anabaptism services? Never 09/23/2021 Do you belong to any clubs or organizations such as No 09/23/2021 restoration groups, unions, fraternal or athletic groups, or [...] place to sleep or slept in a fpc (including now)? Education Answer Date Recorded What is the highest level of school you have completed or 12 th grade 06/17/2019 the highest degree you have received? Sex Assigned at Date Recorded Female 03/09/2018 3:30 PM CDT documented as of this encounter Plan of Treatment Upcoming Encounters Date Type Specialty Care Team Description 07/08/2022 Appointment Laboratory Medicine Pedro Donnelly, LOCAL FLATBED DRIVER, C.N.P. [address] [place] [address] (Wo rk) 07/08/2022 Office Visit Gastroenterology and Collin Trivedi Hepatology Chloe [address] [place] [address] (Wo rk) documented as of this encounter Procedures Procedure Name Priority Date/Time Associated Comments Diagnosis OPHTHALMOLOGY IMAGE Routine 05/03/2021 12:00 Resu lts for this EXAM AM CDT procedure are i n the results section. documented in this encounter Results Eyes Spectralis OCT-Ophthalmology Image Exam (05/03/2021 12:00 AM CDT) Specimen (Source) Anatomical Location Collection Method / Collectio n Time Received Time / Laterality Volume Narrative IIMS - 05/03/2021 9:12 AM CDT This order has been created [...] on filedocumented in this encounter Care Teams Audio Visual Director Relationship Specialty Start Date End Date Elsewhere, Pcp PCP - General Family Medicine 03/25/21 documented as of this encounter
--- OUTSIDE RECORDS SUMMARY | 2022-05-22 16:00 | XMS_ITS | Encounter Summary ---
:1965 Author Organization [facility] Address [address] [place] [address] Care Team Providers Name Role Phone Elsewhere, Pcp Primary Care Provider Unavailable Reason for Referral Outpatient (Routine) - Closed Specialty Diagnoses / Procedures Referred By Contact Refer red To Contact Diagnoses Cirrhosis Nonalcoholic (HCC) Collin Trivedi M.D. [facility] Procedures BMD Bone Density Spine Hips [address] [place] [address] Referral ID Status Reason Start Date Expiration Date Visits Requ ested Visits Authorized [id number] Closed 04/19/2021 04/19/2022 1 1 Reason for Visit Outpatient (Routine) - Closed Specialty Diagnoses / Procedures Referred By Contact Refer red To Contact Diagnoses Cirrhosis Nonalcoholic (HCC) Collin Trivedi M.D. [facility] Procedures BMD Bone Density Spine Hips [address] [place] [address] Referral ID Status Reason Start Date Expiration Date Visits Requ ested Visits Authorized [id number] Closed 04/19/2021 04/19/2022 1 1 Encounter Details Date Type Department Care Team Description 05/14/2021 Hospital Encounter Department of Justus Trivedi Radiology, Maxi Bahena M.D. Nonalcoholic (HCC) Building, in [address] [facility] [phone] [address] [facility] [phone] [place], [place] (Work) [phone] Social History Tobacco Use Types Packs/Day Years [...] How often do you attend buddhist or yarsani services? Never 09/23/2021 Do you belong to [...] mg calcium- 800 mouth daily. unit tablet lisinopril-hydroCHLOROthia Take 1 tablet by 0 zide (PRINZIDE,ZESTORETIC) mouth daily. 20-25 mg per tablet omeprazole (PriLOSEC) 40 TAKE 1 CAPSULE [address] capsule (40 MG TOTAL) BY MOUTH 2 (TWO) TIMES A DAY BEFORE BREAKFAST AND DINNER. valACYclovir (VALTREX) 500 as directed. 0 021 mg tablet azaTHIOprine (IMURAN) 50 Take 4 tablets 360 tablet 0 021 09/17/2021 mg tablet (200 mg total) by mouth daily. colestipoL (COLESTID) 1 Take 1 tablet (1 60 tablet 2 202006/12/2021 gram tablet g total) by mouth 2 (two) times a day. hydrOXYchloroQUINE Take 2 tablets 180 tablet 1 04/22/2021 (PLAQUENIL) 200 mg tablet (400 mg total) by mouth as directed. Take 1 tab daily for 2 weeks then 2 tabs daily. oxybutynin (DITROPAN-XL) Take 10 mg by 0 12/22/19 21 09/23/2021 10 mg 24 hr tablet mouth daily. pravastatin (PRAVACHOL) 40 TAKE 1 TABLET BY 90 tablet 3 09/03/2021 mg tablet MOUTH EVERY DAY documented as of this encounter Plan of Treatment Upcoming Encounters Date Type Specialty Care Team Description 07/08/2022 Appointment Laboratory Medicine Pedro Donnelly, AUTOMATIC COIL MACHINE OPERATOR, C.N.P. [address] [place] [phone] (Claudia vera) 07/08/2022 Office Visit Gastroenterology and Collin Trivedi Hepatology M.DSarina [address] [place] [address] (Claudia vera) documented as of this encounter Procedures Procedure Name Priority Date/Time Associated Comments Diagnosis BMD BONE DENSITY RAD - Routine 05/14/2021 8:52 Cirrhosis Results for this SPINE HIPS (most inpatients AM CDT Nonalcoholic (HCC) proce dure are in and all the results outpatients) section. documented in this encounter Results BMD Bone Density Spine Hips (05/14/2021 8:52 AM CDT) Anatomical Region Laterality Modality Hip, Lumbar Spine, Nuclear Medicine RST LOS, N/A Radiographic Imaging Musculoskeletal ARZ LOS, Muskuloskeletal FLA LOS Specimen (Source) Anatomical Collection Method Collection Time Re ceived Time Location / / Volume Laterality 05/14/2021 9:19 AM CDT Impressions 05/14/2021 9:19 AM CDT Low bone density (Osteopenia) DualFemur (region: Neck Right) ?? Narrative 05/14/2021 9:19 AM CDT EXAM: ??BMD BONE DENSITY SPINE HIPS Bone Mineral Density (BMD) analysis perf ormed on KiteBit with serial number [id number]. COMPARISON: Serial Comparisons Left Total Hip results: Exam Date ? BMD ? T-sco re ? 08/26/2013 ?1.072 g/cm2 ?? 0.5 ? 08/26/2013 ?1.074 g/cm2 ?? 0.5 ? 12/22/2018 ? 1.015 g/cm2 ?? 0.1 ? 05/14/2021 ?0.995 g/cm2 ?? -0.1 ? Change vs. Previous (difference): -0.020 g/cm2 Change vs. Previous (%): -2.0 % The absolute BMD change from previous, - 0.020 g/cm2, is greater than least significant change : No The absolute BMD change from baseline, - 0.077 g/cm2, is greater than least significant change : Yes Right Total Hip results: Exam Date ? BMD ? T-sco re ? 08/26/2013 ?1.003 g/cm2 ?? 0.0 ? 08/26/2013 ?1.003 g/cm2 ?? 0.0 ? 12/22/2018 ? 0.944 g/cm2 ?? -0.5 ? 05/14/2021 ?0.905 g/cm2 ?? -0.8 ? Change vs. Previous (difference): -0.039 g/cm2 *Change vs. Previous (%): -4.1 % The absolute BMD change from previous, - 0.039 g/cm2, is greater than least significant change : Yes The absolute BMD change from baseline, - 0.098 g/cm2, is greater than least significant change : Yes Combined Total Hip results: Exam Date ? BMD ? T-sco re ? 08/26/2013 ?1.037 g/cm2 ?? 0.2 ? 08/26/2013 ?1.039 g/cm2 ?? 0.2 ? 12/22/2018 ? 0.979 g/cm2 ?? -0.2 ? 05/14/2021 ?0.950 g/cm2 ?? -0.5 ? Change vs. Previous (difference): -0.029 g/cm2 *Change vs. Previous (%): -3.0 % The absolute BMD change from previous, - 0.029 g/cm2, is greater than least significant change : Yes The absolute BMD change from baseline, - 0.087 g/cm2, is greater than least significant change : Yes Spine results: Exam Date ? BMD ? T-sco re ? 08/26/2013 ?1.215 g/cm2 ?? 0.3 ? 08/26/2013 ?1.181 g/cm2 ?? 0.0 ? 12/22/2018 ? 1.140 g/cm2 ?? -0.3 ? 05/14/2021 ?1.112 g/cm2 ?? -0.6 ? Change vs. Previous (difference): -0.028 g/cm2 Change vs. Previous (%): -2.5 % The absolute BMD change from previous, - 0.028 g/cm2, is greater than the least significant ch roland: Yes The absolute BMD change from baseline, - 0.103 g/cm2, is greater than the least significant ch roland: Yes FINDINGS: Left Hip: Femur Neck: BMD = 0.894 g/cm2 T-score = -1.0 ?Z-score = -0.7 Total Hip: BMD = 0.995 g/cm2 T-score = -0.1 ?Z-score = -0.2 Right Hip: Femur Neck: BMD = 0.848 g/cm2 T-score = -1.4 ?? Z-score = -1.0 Total Hip: BMD = 0.905 g/cm2 T-score = -0.8 ?Z-score = -0.9 Lumbar Spine: L1: BMD = 1.097 g/cm2 L2: BMD = 1.142 g/cm2 L3: BMD = 1.095 g/cm2 L4: BMD = 1.192 g/cm2 Total Lumbar Spine (L1-L3): BMD = 1.112 g/cm2 T-score = -0.6 ?Z-score = -0.8 Trabecular Bone Score: ??L1-L3: TBS = 1.409 Please note: A more comprehensive DXA re port, including images and graphs, is available in ironSource. In the absence of other causes of low BM D or demonstrated skeletal fragility, osteoporosis may be diagnosed in post-me nopausal women and men at or above age 50 when the T-score is at or below -2.5 as defined by the WHO. Low bone density is present at T-scores between -1 and -2 .5. The diagnosis in pre-menopausal women and men < age 50 can be based on l ow bone density or evidence of skeletal fragility in the appropriate clinical se tting. Based on the bone density results, and o n the patient's answers to the Fracture Risk Assessment questionnaire (please re brodie to appropriate image stored in the BMD study in QREADS), the calculated ten year probability of fracture is: FRAX Risk Factors: Glucocorticoids (Hospital Unit Clerk quan), Secondary Osteoporosis FRAX (10 yr probability) adjusted for TB S: Major Osteoporotic Fracture: ??8.5 % Hip Fracture: ?0.5 % ?? Degenerative changes are present which m ay spuriously elevate the spine BMD measurement. Procedure Note Jay Cuadra M.D. - 05/14/2021For matting of this note might be different from the original. EXAM: BMD BONE DENSITY SPINE HIPS Bone Mineral Density (BMD) analysis perf ormed on KiteBit with serial number [id number]. COMPARISON: Serial Comparisons Left Total Hip results: Exam Date BMD T-score 08/26/2013 1.072 g/cm2 0.5 08/26/2013 1.074 g/cm2 0.5 12/22/2018 1.015 g/cm2 0.1 05/14/2021 0.995 g/cm2 -0.1 Change vs. Previous (difference): -0.020 g/cm2 Change vs. Previous (%): -2.0 % The absolute BMD change from previous, - 0.020 g/cm2, is greater than least significant change : No The absolute BMD change from baseline, - 0.077 g/cm2, is greater than least significant change : Yes Right Total Hip results: Exam Date BMD T-score 08/26/2013 1.003 g/cm2 0.0 08/26/2013 1.003 g/cm2 0.0 12/22/2018 0.944 g/cm2 -0.5 05/14/2021 0.905 g/cm2 -0.8 Change vs. Previous (difference): -0.039 g/cm2 *Change vs. Previous (%): -4.1 % The absolute BMD change from previous, - 0.039 g/cm2, is greater than least significant change : Yes The absolute BMD change from baseline, - 0.098 g/cm2, is greater than least significant change : Yes Combined Total Hip results: Exam Date BMD T-score 08/26/2013 1.037 g/cm2 0.2 08/26/2013 1.039 g/cm2 0.2 12/22/2018 0.979 g/cm2 -0.2 05/14/2021 0.950 g/cm2 -0.5 Change vs. Previous (difference): -0.029 g/cm2 *Change vs. Previous (%): -3.0 % The absolute BMD change from previous, - 0.029 g/cm2, is greater than least significant change : Yes The absolute BMD change from baseline, - 0.087 g/cm2, is greater than least significant change : Yes Spine results: Exam Date BMD T-score 08/26/2013 1.215 g/cm2 0.3 08/26/2013 1.181 g/cm2 0.0 12/22/2018 1.140 g/cm2 -0.3 05/14/2021 1.112 g/cm2 -0.6 Change vs. Previous (difference): -0.028 g/cm2 Change vs. Previous (%): -2.5 % The absolute BMD change from previous, - 0.028 g/cm2, is greater than the least significant ch roland: Yes The absolute BMD change from baseline, - 0.103 g/cm2, is greater than the least significant ch roland: Yes FINDINGS: Left Hip: Femur Neck: BMD = 0.894 g/cm2 T-score = -1.0 Z-score = -0.7 Total Hip: BMD = 0.995 g/cm2 T-score = -0.1 Z-score = -0.2 Right Hip: Femur Neck: BMD = 0.848 g/cm2 T-score = -1.4 Z-score = -1.0 Total Hip: BMD = 0.905 g/cm2 T-score = -0.8 Z-score = -0.9 Lumbar Spine: L1: BMD = 1.097 g/cm2 L2: BMD = 1.142 g/cm2 L3: BMD = 1.095 g/cm2 L4: BMD = 1.192 g/cm2 Total Lumbar Spine (L1-L3): BMD = 1.112 g/cm2 T-score = -0.6 Z-score = -0.8 Trabecular Bone Score: L1-L3: TBS = 1.409 Please note: A more comprehensive DXA re port, including images and graphs, is available in ironSource. In the absence of other causes of low BM D or demonstrated skeletal fragility, osteoporosis may be diagnosed in post-me nopausal women and men at or above age 50 when the T-score is at or below -2.5 as defined by the WHO. Low bone density is present at T-scores between -1 and -2 .5. The diagnosis in pre-menopausal women and men < age 50 can be based on l ow bone density or evidence of skeletal fragility in the appropriate clinical se tting. Based on the bone density results, and o n the patient's answers to the Fracture Risk Assessment questionnaire (please re brodie to appropriate image stored in the BMD study in surespotEADS), the calculated ten year probability of fracture is: FRAX Risk Factors: Glucocorticoids (Hospital Unit Clerk quan), Secondary Osteoporosis FRAX (10 yr probability) adjusted for TB S: Major Osteoporotic Fracture: 8.5 % Hip Fracture: 0.5 % Degenerative changes are present which m ay spuriously elevate the spine BMD measurement. IMPRESSION: Low bone density (Osteopenia) DualFemur (region: Neck Right) Collin GRACIA DXA PROCEDURES documented in this encounter Visit Diagnoses Diagnosis Cirrhosis Nonalcoholic (HCC) documented in this encounter Care Teams Disbursing Officer Relationship Specialty Start Date End Date Elsewhere, Pcp PCP - General Family Medicine 03/25/21 documented as of this encounter
--- OUTSIDE RECORDS SUMMARY | 2022-05-22 16:00 | XMS_ITS | Encounter Summary ---
:1965 Author Organization [facility] Address [address] [place] [address] Care Team Providers Name Role Phone Elsewhere, Pcp Primary Care Provider Unavailable Encounter Details Date Type Department Care Team Description 05/14/2021 Hospital Encounter Department of Pedro Donnelly Medicalma delia ion Therapy Laboratory Medicine R, WOOD TYPE FINISHER, C.N .P. Clinical Education Coordinator Not and Pathology, [address] [place] [address] in [facility] [address] [place] [address] 200 [facility] (Work) [place], [place] [phone] [address] (Fax) [phone] Social History Tobacco Use Types Packs/Day Years [...] er 09/23/2021 How often do you attend taoism or oriental orthodox services? Never 09/23/2021 Do you belong to any clubs or organizations such as No 09/23/2021 taoism groups, unions, fraternal or athletic groups, or [...] place to sleep or slept in a custodial (including now)? Education Answer Date Recorded What [...] Medicine Pedro Donnelly APRN, C.N.P. [address] [place] [address] (Wo rk) 07/08/2022 Office Visit Gastroenterology and Collin Trivedi Hepatology Chloe [address] [place] [phone] (Wo rk) documented as of this encounter Procedures Procedure Name Priority Date/Time Associated Diagnosis Comme nts CBC WITH DIFFERENTIAL, B Routine 05/14/2021 9:37 Medication Th erapy Results for this AM CDT Longterm Not procedure are in Anticoagulant the results section. ASPARTATE Routine 05/14/2021 9:37 Medication Therapy Result s for this AMINOTRANSFERASE (AST), AM CDT Longterm Not pro cedure are in S/P Anticoagulant the results section. documented in this encounter Results AST (Aspartate Aminotransferase) (05/14/2021 9:37 AM CDT) [facility] [employer] Method Time Signature Aspartate 19 8 - 43 05/14/2021 DTL Aminotransferase U/L 10:43 AM CDT (AST), S Specimen Anatomical Collection Method Collection Time Receive d Time (Source) Location / / Volume Laterality Blood (Blood, 05/14/2021 9:37 AM 05/14/20 9:58 Venous) CDT AM CDT Pedro Donnelly APRN, C.N.P. LAB BLOOD ADD-ON Performing Organization Address City/State/ZIP Code Phon e Number [facility] - [address] [place] [address] 05 [facility] [place] [place] [address] [facility] 200 [facility] (ABNORMAL) CBC with Differential, Blood (05/14/2021 9:37 AM CDT) [facility] [employer] Method Time Signature Hemoglobin 10.1 (L) 11.6 [...] Organization Address City/State/ZIP Code Phon e Number [facility] - [address] [place], [place] [address] [facility] [place] [address] [facility] [address] documented in this encounter Visit Diagnoses Diagnosis Medication Therapy Clinical Education Coordinator Not Anticoa gulant documented in this encounter Care Teams Swimming Pool Cleaner Relationship Specialty Start Date End Date Elsewhere, Pcp PCP - General Family Medicine 03/25/21 documented as of this encounter
--- OUTSIDE RECORDS SUMMARY | 2022-05-22 16:00 | XMS_ITS | Encounter Summary ---
:1965 Author Organization [facility] Address [address] [place] [address] Care Team Providers Name Role Phone Elsewhere, Pcp Primary Care Provider Unavailable Encounter Details Date Type Department Care Team Description 09/12/2021 Hospital Encounter Department of Pedro Donnelly Medicalma delia ion Therapy Laboratory Medicine R, ENGINEERING PROGRAMMER, C.N .P. Half-Way Not in [place], [facility] [address] [address] [place], [place] [phone] [address] (Work) [phone] Social History Tobacco Use Types Packs/Day Years [...] er 09/23/2021 How often do you attend yazidi or catholic services? Never 09/23/2021 Do you belong to any clubs or organizations such as No 09/23/2021 yazidi groups, unions, fraternal or athletic groups, or [...] tablet (200 mg total) by mouth daily. azaTHIOprine (IMURAN) 50 TAKE 4 TABLETS 360 tablet 1 022 02/11/2022 mg tabletIndications: (200 MG TOTAL) BY Lupus Systemic MOUTH DAILY. Erythematosus (HCC) colestipoL (COLESTID) 1 TAKE 1 TABLET (1 180 tablet 1 202012/09/2021 gram tablet G TOTAL) BY MOUTH 2 TIMES A DAY. hydrOXYchloroQUINE Take 2 tablets 180 tablet 1 04/22/2021 (PLAQUENIL) 200 mg tablet (400 mg total) by mouth as directed. Take 1 tab daily for 2 weeks then 2 tabs daily. mycophenolate (CELLCEPT) 2 (two) times a 0 09/23/2021 500 mg tablet day. oxybutynin (DITROPAN-XL) Take 10 mg by 0 12/22/19 21 09/23/2021 10 mg 24 hr tablet mouth daily. documented as of this encounter Plan of Treatment Upcoming Encounters Date Type Specialty Care Team Description 07/08/2022 Appointment Laboratory Medicine Pedro Donnelly APRN, C.N.P. [address] [place] [phone] (Claudia vera) 07/08/2022 Office Visit Gastroenterology and Collin Trivedi, Hepatology MAyala [address] [place] [phone] (Claudia vera) documented as of this encounter Procedures Procedure Name Priority Date/Time Associated Diagnosis Comme nts CBC WITH DIFFERENTIAL, B Routine 09/12/2021 2:10 Medication Th erapy Results for this PM JUKEBOX CHECKER Insurance Examining Clerk Not procedure are in Anticoagulant the results section. ASPARTATE Routine 09/12/2021 2:10 Medication Therapy Result s for this AMINOTRANSFERASE (AST), PM JUKEBOX CHECKER Insurance Examining Clerk Not pro cedure are in S/P Anticoagulant the results section. documented in this encounter Results AST (Aspartate Aminotransferase) (09/12/2021 2:10 PM JUKEBOX CHECKER) [facility] gist Method Time Signature Aspartate 19 8 - 43 09/12/2021 [place] Aminotransferase U/L 3:56 PM JUKEBOX CHECKER (AST), P Specimen Anatomical Collection Method Collection Time Receive d Time (Source) Location / / Volume Laterality Blood (Blood, 09/12/2021 2:10 PM 09/12/19 22 3:31 Venous) JUKEBOX CHECKER PM JUKEBOX CHECKER Pedro Donnelly APRN, C.N.P. LAB BLOOD ADD-ON Performing Organization Address City/State/ZIP Code Phon e Number [facility]- [address] [place] [address] [place] [address] System in [place] 2199 [facility] (ABNORMAL) CBC with Differential, Blood (09/12/2021 2:10 PM JUKEBOX CHECKER) [facility] Method Time Signature Hemoglobin 11.8 11.6 - 09/12/2021 FB60 15.0 g/dL 2:24 PM JUKEBOX CHECKER Hematocrit 35.4 (L) 35.5 - 09/12/2021 FB60 44.9 % 2:24 PM JUKEBOX CHECKER Erythrocytes 3.91 (L) 3.92 - 09/12/2021 FB60 5.13 2:24 PM JUKEBOX CHECKER x10(12)/L MCV 90.5 78.2 - 09/12/2021 FB60 97.9 fL 2:24 PM JUKEBOX CHECKER RBC Distrib Width 14.5 12.2 - 09/12/2021 FB60 16.1 % 2:24 PM JUKEBOX CHECKER Platelet Count 93 (L) 157 - 371 09/12/2021 FB60 x10(9)/L 2:24 PM JUKEBOX CHECKER Leukocytes 5.7 3.4 - 9.6 09/12/2021 FB60 x10(9)/L 2:24 PM JUKEBOX CHECKER Neutrophils 4.73 1.56 - 09/12/2021 FB60 6.45 2:24 PM JUKEBOX CHECKER x10(9)/L Lymphocytes 0.51 (L) 0.95 - 09/12/2021 FB60 3.07 2:24 PM JUKEBOX CHECKER x10(9)/L Monocytes 0.38 0.26 - 09/12/2021 FB60 0.81 2:24 PM JUKEBOX CHECKER x10(9)/L Eosinophils 0.02 (L) 0.03 - 09/12/2021 FB60 0.48 2:24 PM JUKEBOX CHECKER x10(9)/L Basophils 0.01 0.01 - 09/12/2021 FB60 0.08 2:24 PM JUKEBOX CHECKER x10(9)/L Specimen Anatomical Collection Method Collection Time Receive d Time (Source) Location / / Volume Laterality Blood (Blood, 09/12/2021 2:10 PM 09/12/19 2:23 Venous) JUKEBOX CHECKER PM JUKEBOX CHECKER Pedro Donnelly APRN, C.N.P. LAB BLOOD ADD-ON Performing Organization Address City/State/ZIP Code Phon e Number [facility]- [address] [place] [address] [facility] [place] [address] System in [place] [address] documented in this encounter Visit Diagnoses Diagnosis Medication Therapy Insurance Examining Clerk Not Anticoa gulant documented in this encounter Care Teams Ball Worker Relationship Specialty Start Date End Date Elsewhere, Pcp PCP - General Family Medicine 03/25/21 documented as of this encounter
--- OUTSIDE RECORDS SUMMARY | 2022-05-22 16:00 | XMS_ITS | Encounter Summary ---
:1965 Author Organization [facility] Address [address] [place] [address] Care Team Providers Name Role Phone Elsewhere, Pcp Primary Care Provider Unavailable Reason for Visit Reason Comments Med Refill Encounter Details Date Type Department Care Team Description 06/12/2021 [facility] Ref[facility] [place], [place] Chloe [address] [facility] [address] [place] [address] [place], [place] [phone] (Wo rk) Social History Tobacco Use Types [...] er 09/23/2021 How often do you attend christian or zoroastrianism services? Never 09/23/2021 Do you belong to any clubs or organizations such as No 09/23/2021 christian groups, unions, fraternal or athletic groups, or [...] Description 07/08/2022 Appointment Laboratory Medicine Pedro Donnelly, ENTRY LEVEL BUSINESS ANALYST, C.N.P. [address] [place] [phone] (Claudia vera) 07/08/2022 Office Visit Gastroenterology and Collin Trivedi, Hepatology M.DSarina [address] [place] [phone] (Claudia vera) documented as of this encounter Visit Diagnoses Not on filedocumented in this encounter Care Teams Design Quality Engineer Relationship Specialty Start Date End Date Elsewhere, Pcp PCP - General Family Medicine 03/25/21 documented as of this encounter
--- OUTSIDE RECORDS SUMMARY | 2022-05-22 16:00 | XMS_ITS | Encounter Summary ---
:1965 Author Organization [facility] Address [address] [place] [address] Care Team Providers Name Role Phone Elsewhere, Pcp Primary Care Provider Unavailable Encounter Details Date Type Department Care Team Description 05/03/2021 Hospital Encounter Department of Pedro Donnelly Medicalma delia ion Therapy Laboratory Medicine R, UNDERGRADUATE INTERNSHIP, C.N .P. Jail Not in [place], [facility] [address] [address] [place], [place] [phone] (Work) [phone] Social History Tobacco Use Types Packs/Day Years [...] How often do you attend gnosticism or spiritism services? Never 09/23/2021 Do you belong to [...] Medicine Pedro Donnelly APRN, C.N.P. [address] [place] [address] (Claudia rk) 07/08/2022 Office Visit Gastroenterology and Collin Trivedi, Hepatology Chloe [address] [place] [phone] (Claudia rk) documented as of this encounter Procedures Procedure Name Priority Date/Time Associated Diagnosis Comme nts CBC WITH DIFFERENTIAL, B Routine 05/03/2021 2:05 Medication Th erapy Results for this PM CDT Jail Not procedure are in Anticoagulant the results section. ASPARTATE Routine 05/03/2021 2:05 Medication Therapy Result s for this AMINOTRANSFERASE (AST), PM CDT Jail Not pro cedure are in S/P Anticoagulant the results section. documented in this encounter Results AST (Aspartate Aminotransferase) (05/03/2021 2:05 PM CDT) [facility] Method Time Signature Aspartate 19 8 - 43 05/03/2021 [place] Aminotransferase U/L 4:37 PM CDT (AST), P Specimen Anatomical Collection Method Collection Time Receive d Time (Source) Location / / Volume Laterality Blood (Blood, 05/03/2021 2:05 PM 05/03/20 21 3:59 Venous) CDT PM CDT Pedro Donnelly APRN, C.N.P. LAB BLOOD ADD-ON Performing Organization Address City/State/ZIP Code Phon e Number [facility]- [address] [place] [address] [place] [address] System in [place] [address] (ABNORMAL) CBC with Differential, Blood (05/03/2021 2:05 PM CDT) [facility] Method Time Signature Hemoglobin 9.5 (L) 11.6 - 05/03/2021 OWAT 15.0 g/dL 4:07 PM CDT Hematocrit 29.2 (L) 35.5 - 05/03/2021 OWAT 44.9 % 4:07 PM CDT Erythrocytes 3.12 (L) 3.92 - 05/03/2021 OWAT 5.13 4:07 PM CDT x10(12)/L MCV 93.6 78.2 - 05/03/2021 OWAT 97.9 fL 4:07 PM CDT RBC Distrib Width 19.5 (H) 12.2 - 05/03/2021 OWAT 16.1 % 4:07 PM CDT Platelet Count 199 157 - 371 05/03/2021 [place] x10(9)/L 4:07 PM CDT Leukocytes 3.5 3.4 - 9.6 05/03/2021 OW[place] x10(9)/L 4:07 PM CDT Neutrophils 2.44 1.56 - 05/03/2021 OW[place] 6.45 4:07 PM CDT x10(9)/L Lymphocytes 0.65 (L) 0.95 - 05/03/2021 OWAT 3.07 4:07 PM CDT x10(9)/L Monocytes 0.36 0.26 - 05/03/2021 OWAT 0.81 4:07 PM CDT x10(9)/L Eosinophils 0.08 0.03 - 05/03/2021 OWAT 0.48 4:07 PM CDT x10(9)/L Basophils 0.01 0.01 - 05/03/2021 OWAT 0.08 4:07 PM CDT x10(9)/L Specimen Anatomical Collection Method Collection Time Receive d Time (Source) Location / / Volume Laterality Blood (Blood, 05/03/2021 2:05 PM 05/03/20 21 2:05 Venous) CDT PM CDT Pedro Donnelly APRN C.N.P. LAB BLOOD ADD-ON Performing Organization Address City/State/ZIP Code Phon e Number [facility]- [address] [place] [address] [facility] [place] [address] System in [place] [address] [facility] documented in this encounter Visit Diagnoses Diagnosis Medication Therapy Jail Not Anticoa gulant documented in this encounter Care Teams Live In Housekeeper Nanny Relationship Specialty Start Date End Date Elsewhere, Pcp PCP - General Family Medicine 03/25/21 documented as of this encounter
--- OUTSIDE RECORDS SUMMARY | 2022-05-22 16:00 | XMS_ITS | Encounter Summary ---
:1965 Author Organization [facility] Address [address] [place] [address] Care Team Providers Name Role Phone Elsewhere, Pcp Primary Care Provider Unavailable Encounter Details Date Type Department Care Team Description 07/18/2021 Hospital Encounter Department of Pedro Donnelly S ystemic Erythematosus (HCC); Laboratory Medicine R, OIL EXPELLER OPERATOR, C.N .P. Medication Therapy Shelter Not Anticoa gulant in [place], [address] [place], [place] [address] [address] [place], [place] [phone] [address] (Work) [phone] Social History Tobacco Use Types Packs/Day Years [...] er 09/23/2021 How often do you attend voodoo or scientologist services? Never 09/23/2021 Do you belong to any clubs or organizations such as No 09/23/2021 voodoo groups, unions, fraternal or athletic groups, or [...] to pay for the very basics like [employer] hat hard 09/23/2021 food, housing, medical care, [...] total) by mouth daily. colestipoL (COLESTID) 1 TAKE 1 TABLET (1 [...] oxybutynin (DITROPAN-XL) Take 10 mg by 0 04/16/20 21 09/23/2021 10 mg 24 hr tablet mouth daily. pravastatin (PRAVACHOL) 40 TAKE 1 TABLET BY 90 tablet 3 09/03/2021 mg tablet MOUTH EVERY DAY documented as of this encounter Plan of Treatment Upcoming Encounters Date Type Specialty Care Team Description 07/08/2022 Appointment Laboratory Medicine Pedro Donnelly APRN, C.N.P. [address] [place] [phone] (Claudia rk) 07/08/2022 Office Visit Gastroenterology and Collin Trivedi Hepatology Chloe [address] [place] [phone] (Claudia rk) documented as of this encounter Procedures Procedure Name Priority Date/Time Associated Diagnosis Comme nts CBC WITH DIFFERENTIAL, B Routine 07/18/2021 12:32 Medication T herapy Results for this PM CLINICAL SECRETARY Shelter Not procedure are in Anticoagulant the results section. C-REACTIVE PROTEIN Routine 07/18/2021 12:32 Lupus Systemic Res ults for this (CRP), S/P PM CLINICAL SECRETARY Erythematosus (HCC) procedur e are in the results section. ASPARTATE Routine 07/18/2021 12:32 Medication Therapy Resul ts for this AMINOTRANSFERASE (AST), PM CLINICAL SECRETARY Analytical Research Chemist Not pro cedure are in S/P Anticoagulant the results section. documented in this encounter Results AST (Aspartate Aminotransferase) (07/18/2021 12:32 PM CLINICAL SECRETARY) [facility] gist Method Time Signature Aspartate 19 8 - 43 07/18/2021 [place] Aminotransferase U/L 4:17 PM CLINICAL SECRETARY (AST), P Specimen Anatomical Collection Method Collection Time Receive d Time (Source) Location / / Volume Laterality Blood (Blood, 07/18/2021 12:32 07/18/2021 3:36 Venous) PM CLINICAL SECRETARY PM CLINICAL SECRETARY Landon Bal M.D. LAB BLOOD ADD-ON Performing Organization Address City/State/ZIP Code Phon e Number [facility]- [address] [place] [address] [place] [address] System in [place] [address] (ABNORMAL) CBC with Differential, Blood (07/18/2021 12:32 PM CLINICAL SECRETARY) [facility] Method Time Signature Hemoglobin 11.8 11.6 - 07/18/2021 FB60 15.0 g/dL 12:38 PM CLINICAL SECRETARY Hematocrit 34.0 (L) 35.5 - 07/18/2021 FB60 44.9 % 12:38 PM CLINICAL SECRETARY Erythrocytes 3.78 (L) 3.92 - 07/18/2021 FB60 5.13 12:38 PM CLINICAL SECRETARY x10(12)/L MCV 89.9 78.2 - 07/18/2021 FB60 97.9 fL 12:38 PM CLINICAL SECRETARY RBC Distrib Width 14.9 12.2 - 07/18/2021 FB60 16.1 % 12:38 PM CLINICAL SECRETARY Platelet Count 109 (L) 157 - 371 07/18/2021 FB60 x10(9)/L 12:38 PM CLINICAL SECRETARY Leukocytes 4.2 3.4 - 9.6 07/18/2021 FB60 x10(9)/L 12:38 PM CLINICAL SECRETARY Neutrophils 3.02 1.56 - 07/18/2021 FB60 6.45 12:38 PM CLINICAL SECRETARY x10(9)/L Lymphocytes 0.70 (L) 0.95 - 07/18/2021 FB60 3.07 12:38 PM CLINICAL SECRETARY x10(9)/L Monocytes 0.35 0.26 - 07/18/2021 FB60 0.81 12:38 PM CLINICAL SECRETARY x10(9)/L Eosinophils 0.07 0.03 - 07/18/2021 FB60 0.48 12:38 PM CLINICAL SECRETARY x10(9)/L Basophils 0.01 0.01 - 07/18/2021 FB60 0.08 12:38 PM CLINICAL SECRETARY x10(9)/L Specimen Anatomical Collection Method Collection Time Receive d Time (Source) Location / / Volume Laterality Blood (Blood, 07/18/2021 12:32 07/18/2021 Venous) PM CLINICAL SECRETARY 12:33 PM CLINICAL SECRETARY Landon Bal M.D. LAB BLOOD ADD-ON Performing Organization Address City/State/ZIP Code Phon e Number [facility]- [address] [place] [address] [facility] [address] [place] [address] System in [place] [address] CRP (C-Reactive Protein) (07/18/2021 12:32 PM CLINICAL SECRETARY) P athologist Signature C-Reactive <3.0 <=8.0 mg/L 07/18/2021 OWAT Protein (CRP), 4:17 PM CLINICAL SECRETARY P Specimen Anatomical Collection Method Collection Time Receive d Time (Source) Location / / Volume Laterality Blood (Blood, 07/18/2021 12:32 07/18/2021 3:36 Venous) PM CLINICAL SECRETARY PM CLINICAL SECRETARY Pedro Donnelly APRN, C.N.P. LAB BLOOD ADD-ON Performing Organization Address City/State/ZIP Code Phon e Number [facility]- [address] [place] [address] [place] [address] System in [place] [address] documented in this encounter Visit Diagnoses Diagnosis Lupus Systemic Erythematosus (HCC) Medication Therapy Shelter Not Anticoa gulant documented in this encounter Care Teams Geophysical Laboratory Supervisor Relationship Specialty Start Date End Date Elsewhere, Pcp PCP - General Family Medicine 03/25/21 documented as of this encounter
--- OUTSIDE RECORDS SUMMARY | 2022-05-22 16:00 | XMS_ITS | Encounter Summary ---
:1965 Author Organization [facility] Address [address] [place] [address] Care Team Providers Name Role Phone Elsewhere, Pcp Primary Care Provider Unavailable Encounter Details Date Type Department Care Team Description 05/28/2021 Hospital Encounter Department of Pedro Donnelly Medicalma delia ion Therapy Laboratory Medicine R, COIL INSPECTOR, C.N .P. Payroll Director Not in [place], [facility] [address] [address] [place], [place] [phone] (Work) [phone] Social History Tobacco Use Types Packs/Day Years [...] er 09/23/2021 How often do you attend mandaeism or yazidi services? Never 09/23/2021 Do you belong to any clubs or organizations such as No 09/23/2021 mandaeism groups, unions, fraternal or athletic groups, or [...] Medicine Pedro Donnelly APRN, C.N.P. [address] [place] [address] (Claudia rk) 07/08/2022 Office Visit Gastroenterology and Collin Trivedi, Hepatology Chloe [address] [place] [phone] (Claudia rk) documented as of this encounter Procedures Procedure Name Priority Date/Time Associated Diagnosis Comme nts CBC WITH DIFFERENTIAL, B Routine 05/28/2021 9:30 Medication Th erapy Results for this AM CDT Mcc Not procedure are in Anticoagulant the results section. ASPARTATE Routine 05/28/2021 9:30 Medication Therapy Result s for this AMINOTRANSFERASE (AST), AM CDT Mcc Not pro cedure are in S/P Anticoagulant the results section. documented in this encounter Results AST (Aspartate Aminotransferase) (05/28/2021 9:30 AM CDT) [facility] [employer] Method Time Signature Aspartate 21 8 - 43 05/28/2021 [place] Aminotransferase U/L 11:09 AM CDT (AST), P Specimen Anatomical Collection Method Collection Time Receive d Time (Source) Location / / Volume Laterality Blood (Blood, 05/28/2021 9:30 AM 05/28/20 21 Venous) CDT 10:43 AM CDT Pedro Donnelly APRN, C.N.P. LAB BLOOD ADD-ON Performing Organization Address City/State/ZIP Code Phon e Number [facility]- [address] [place] [address] [place] [address] System in [place] [address] (ABNORMAL) CBC with Differential, Blood (05/28/2021 9:30 AM CDT) [facility] [employer] Method Time Signature Hemoglobin 10.8 (L) 11.6 [...] Organization Address City/State/ZIP Code Phon e Number [facility]- [address] [place] [address] [place] [address] System in [place] [address] [facility] documented in this encounter Visit Diagnoses Diagnosis Medication Therapy Payroll Director Not Anticoa gulant documented in this encounter Care Teams Repair Clerk Relationship Specialty Start Date End Date Elsewhere, Pcp PCP - General Family Medicine 03/25/21 documented as of this encounter
--- OUTSIDE RECORDS SUMMARY | 2022-05-22 16:00 | XMS_ITS | Encounter Summary ---
:1965 Author Organization [facility] Address [address] [place] [address] Care Team Providers Name Role Phone Elsewhere, [...] How often do you attend worship or episcopal services? Never 09/23/2021 Do you belong to [...] Description 07/08/2022 Appointment Laboratory Medicine Pedro Donnelly, MECHATRONICS ENGINEER, C.N.P. [address] [place] [address] (Wo rk) 07/08/2022 Office Visit Gastroenterology and Collin Trivedi Hepatology Chloe [address] [place] [address] (Wo rk) documented as of this encounter Procedures Procedure Name Priority Date/Time Associated Comments Diagnosis OPHTHALMOLOGY IMAGE Routine 05/03/2021 12:10 Resu lts for this EXAM AM CDT procedure are i n the results section. documented in this encounter Results Eyes Spectralis Auto Fluorescence-Ophthalmology Image Exam (05/03/2021 12:10 AM CDT) Specimen (Source) Anatomical Location Collection Method / Collectio n Time Received Time / Laterality Volume Narrative IIMS - 05/03/2021 11:00 AM CDT This order has been created [...] on filedocumented in this encounter Care Teams Trauma Director Relationship Specialty Start Date End Date Elsewhere, Pcp PCP - General Family Medicine 03/25/21 documented as of this encounter
--- OUTSIDE RECORDS SUMMARY | 2022-05-22 16:00 | XMS_ITS | Encounter Summary ---
:1965 Author Organization [facility] Address [address] [place] [address] Care Team Providers Name Role Phone Elsewhere, Pcp Primary Care Provider Unavailable Reason for Visit Reason Comments Med Refill Encounter Details Date Type Department Care Team Description 09/02/2021 Refill Department of Cardiovascular Gaudencio Dukes Med Refill Medicine in [place] Iain M.D. [address] [facility] [address] [place] [address] [place] [address] [phone] (Wo rk) Social History Tobacco Use Types [...] er 09/23/2021 How often do you attend mormonism or catholic services? Never 09/23/2021 Do you belong to any clubs or organizations such as No 09/23/2021 mormonism groups, unions, fraternal or athletic groups, or [...] this encounter Miscellaneous Notes Telephone Encounter - Loretta Butterfield - 09/02/2021 3:45 PM CST Images from the original note were not included. Nurse review: Unable to pend medication to provider; Dr Sudheer Bhakta is no longer here. Name of Medication: pravastatin Strength: 40 mg Frequency: daily Last Seen: 09-14-19 (Dr Sudheer Bhakta) ICAL ASSISTANT documented in this encounter Plan of Treatment Upcoming Encounters Date Type Specialty Care Team Description 07/08/2022 Appointment Laboratory Medicine Pedro Donnelly, COLLECTION CLERK, C.N.P. [address] [place] [phone] (Claudia vera) 07/08/2022 Office Visit Gastroenterology and Collin Trivedi Hepatology M.DSarina [address] [place] [phone] (Claudia vera) documented as of this encounter Visit Diagnoses Not on filedocumented in this encounter Care Teams Thermodynamic Physicist Relationship Specialty Start Date End Date Elsewhere, Pcp PCP - General Family Medicine 03/25/21 documented as of this encounter
--- OUTSIDE RECORDS SUMMARY | 2022-05-22 16:01 | XMS_ITS | Encounter Summary ---
:1965 Author Organization [facility] Address [address] [place] [address] Care Team Providers Name Role Phone Elsewhere, Pcp Primary Care Provider Unavailable Encounter Details Date Type Department Care Team Description 05/03/2021 Ancillary Department of Pedro Donnelly Systemi c Erythematosus (HCC); Procedure Ophthalmology in R, MOVING CONSULTANT, High Risk M edication [place], [place] C.N.P. [address] [facility] [address] [place] [phone] Social History Tobacco Use Types Packs/Day Years [...] er 09/23/2021 How often do you attend sabianism or worship services? Never 09/23/2021 Do you belong to any clubs or organizations such as No 09/23/2021 sabianism groups, unions, fraternal or athletic groups, or [...] place to sleep or slept in a residential (including now)? Education Answer Date Recorded What is the highest level of school you have completed or 12 th grade 06/17/2019 the highest degree you have received? Sex Assigned at Date Recorded Female 03/09/2018 3:30 PM CDT documented as of this encounter Plan of Treatment Upcoming Encounters Date Type Specialty Care Team Description 07/08/2022 Appointment Laboratory Medicine Pedro Donnelly APRN, C.N.P. [address] [place] [address] (Claudia rk) 07/08/2022 Office Visit Gastroenterology and Collin Trivedi Hepatology Chloe [address] [place] [address] (Claudia rk) documented as of this encounter Procedures Procedure Name Priority Date/Time Associated Diagnosis Comme nts OPTICAL COHERENCE Routine 05/03/2021 9:10 AM Lupus Systemic Re sults for this TOMOGRAPHY - CDT Erythematosus (H CC) procedure are in MACULA/RETINA - OU High Risk Medication t he results - BOTH EYES section. documented in this encounter Results Optical Coherence Tomography (OCT) - Macula/Retina - OU - Both Eyes (05/03/2021 9:10 AM CDT) Specimen (Source) Anatomical Location Collection Method / Collectio n Time Received Time / Laterality Volume Narrative OPHTHALMOLOGY IMAGING EXAM - 06/03/20 21 9:59 AM CDT Right Eye Reliability was good. OCT device used [employer] . Left Eye Reliability was good. OCT device used [employer] . Notes See note for results Pedro Donnelly APRN, C.N.P. OPHTH TOMOGRAPHY Performing Organization Address City/State/ZIP Code Phon e Number OPHTHALMOLOGY IMAGING EXAM documented in this encounter Visit Diagnoses Diagnosis Lupus Systemic Erythematosus (HCC) High Risk Medication documented in this encounter Care Teams Climatology Teacher Relationship Specialty Start Date End Date Elsewhere, Pcp PCP - General Family Medicine 03/25/21 documented as of this encounter
--- OUTSIDE RECORDS SUMMARY | 2022-05-22 16:01 | XMS_ITS | Encounter Summary ---
:1965 Author Organization [facility] Address [address] [place] [address] Care Team Providers Name Role Phone Elsewhere, Pcp Primary Care Provider Unavailable Encounter Details Date Type Department Care Team Description 05/03/2021 Ancillary Department of Pedro Donnelly Systemi c Erythematosus (HCC); Procedure Ophthalmology in R, EXERCISE PHYSIOLOGY PROFESSOR, High Risk M edication [place], [place] C.N.P. [address] [facility] [address] [place] [phone] Social History Tobacco Use Types Packs/Day Years [...] How often do you attend tenriism or hindu services? Never 09/23/2021 Do you belong to [...] Medicine Pedro Donnelly APRN, C.N.P. [address] [place] [address] (Claudia rk) 07/08/2022 Office Visit Gastroenterology and Collin Trivedi Hepatology MSarinaDSarina [address] [place] [address] (Claudia rk) documented as of this encounter Procedures Procedure Name Priority Date/Time Associated Diagnosis Comme nts AUTOMATED VF - Routine 05/03/2021 8:29 AM Lupus Systemic Resul ts for this EXTENDED - OU - CDT Erythematosus (H CC) procedure are in BOTH EYES High Risk Medication the res ults section. documented in this encounter Results Automated VF - Extended - OU - Both Eyes (05/03/2021 8:29 AM CDT) Specimen (Source) Anatomical Location Collection Method / Collectio n Time Received Time / Laterality Volume Narrative OPHTHALMOLOGY IMAGING EXAM - 06/03/20 21 9:58 AM CDT Right Eye Automated visual field device used was [employer]. Strategy was DWAYNE. Threshold was 24-2. Eyelid was untaped. Left Eye Automated visual field device used was [employer]. Strategy was DWAYNE. Threshold was 24-2. Eyelid was untaped. Notes See note for results Pedroandres Donnelly APRN, C.N.P. OPHTH VISUAL FIELD Performing Organization Address City/State/ZIP Code Phon e Number OPHTHALMOLOGY IMAGING EXAM documented in this encounter Visit Diagnoses Diagnosis Lupus Systemic Erythematosus (HCC) High Risk Medication documented in this encounter Care Teams Greenhouse Assistant Relationship Specialty Start Date End Date Elsewhere, Pcp PCP - General Family Medicine 03/25/21 documented as of this encounter
--- OUTSIDE RECORDS SUMMARY | 2022-05-22 16:01 | XMS_ITS | Encounter Summary ---
:1965 Author Organization [facility] Address [address] [place] [address] Care Team Providers Name Role Phone Elsewhere, Pcp Primary Care Provider Unavailable Encounter Details Date Type Department Care Team Description 04/19/2021 Hospital Encounter Department of Pedro Donnelly irrhosis Of Liver (HCC); Laboratory [place], ROOF PROMENADE TILE SETTER, Lupus Systemic Erythematosus (HCC); Medicine and C.N.P. Hepatitis Autoimmune (HCC); Pathology, [place] [address] [place] [address] Thrombocytopenia (HCC); Building, in [place], [place] Lupus Erythema tosus [facility]ly [facility] [address] [place] [phone] 200 [facility] (Work) [place], [place] [phone] [address] (Fax) [phone] Social History Tobacco Use Types Packs/Day Years [...] er 09/23/2021 How often do you attend mosque or baptism services? Never 09/23/2021 Do you belong to any clubs or organizations such as No 09/23/2021 mosque groups, unions, fraternal or athletic groups, or [...] to pay for the very basics like [employer] hat hard 09/23/2021 food, housing, medical care, [...] 0 08/25/20 12 D3-min 600 mg calcium- mouth daily. 800 unit tablet lisinopril-hydroCHLOROt Take 1 tablet by 0 hiazide mouth daily. (PRINZIDE,ZESTORETIC) 20-25 mg per tablet omeprazole (PriLOSEC) TAKE 1 CAPSULE (40 180 capsule 3 12/[address] capsule MG TOTAL) BY MOUTH 2 (TWO) TIMES A DAY BEFORE BREAKFAST AND DINNER. valACYclovir (VALTREX) as directed. 0 04/11/2021 500 mg tablet azaTHIOprine (IMURAN) Take 4 tablets (200 360 tablet 0 03/2809/17/2021 50 mg tablet mg total) by mouth daily. oxybutynin Take 10 mg by mouth 0 12/21/202009/23 (DITROPAN-XL) 10 mg 24 daily. hr tablet pravastatin (PRAVACHOL) TAKE 1 TABLET BY 90 tablet 3 201909/03/2021 40 mg tablet MOUTH EVERY DAY documented as of this encounter Plan of Treatment Upcoming Encounters Date Type Specialty Care Team Description 07/08/2022 Appointment Laboratory Medicine Pedro Donnelly, ROOF PROMENADE TILE SETTER, C.N.P. [address] [place] [address] (Wo rk) 07/08/2022 Office Visit Gastroenterology and Collni Trivedi Hepatology Chloe [address] [place] [phone] (Wo chuy) documented as of this encounter Procedures Procedure Name Priority Date/Time Associated Diagnosis Comme nts DNA DOUBLE-STRANDED Routine 04/19/2021 7:05 Lupus Systemic Res ults for this (DSDNA) ABS, IGG, S AM CDT Erythematosu s (HCC) procedure are in Hepatitis Autoimmune the res ults (HCC) section. Thrombocytopenia (HCC) SEDIMENTATION RATE, B Routine 04/19/2021 7:05 Lupus Systemic R esults for this AM CDT Erythematosus (H CC) procedure are in Hepatitis Autoimmune the res ults (HCC) section. Thrombocytopenia (HCC) PROTHROMBIN TIME Routine 04/19/2021 7:05 Other Cirrhosis Of Re sults for this (PT), P AM CDT Liver (HCC) procedure are i n the results section. CBC WITH Routine 04/19/2021 7:05 Other Cirrhosis Of Result s for this DIFFERENTIAL, B AM CDT Liver (HCC) procedure ar e in the results section. COMPL C3, S Routine 04/19/2021 7:05 Lupus Systemic Results fo r this AM CDT Erythematosus (H CC) procedure are in Hepatitis Autoimmune the res ults (HCC) section. Thrombocytopenia (HCC) COMPLEMENT C4, S Routine 04/19/2021 7:05 Lupus Systemic Result s for this AM CDT Erythematosus (H CC) procedure are in Hepatitis Autoimmune the res ults (HCC) section. Thrombocytopenia (HCC) C-REACTIVE PROTEIN Routine 04/19/2021 7:05 Lupus Systemic Resu lts for this (CRP), S/P AM CDT Erythematosus (H CC) procedure are in Hepatitis Autoimmune the res ults (HCC) section. Thrombocytopenia (HCC) COMPREHENSIVE Routine 04/19/2021 7:05 Other Cirrhosis Of Resul ts for this METABOLIC PANEL, S/P AM CDT Liver (HCC) procedu re are in the results section. [facility] RESEARCH ORDER, Routine 04/19/2021 7:04 Lupus Erythematos us Results for this B AM CDT procedure are i n the results section. COMPL, TOT, S Routine 04/19/2021 7:04 Lupus Systemic Results f or this AM CDT Erythematosus (H CC) procedure are in Hepatitis Autoimmune the res ults (HCC) section. Thrombocytopenia (HCC) documented in this encounter Results (ABNORMAL) Complement C4 (04/19/2021 7:05 AM CDT) athologist Signature Complement C4, S 3 (L) 14 - 40 04/19/2021 SDSC mg/dL 12:01 PM CDT Specimen Anatomical Collection Method Collection Time Receive d Time (Source) Location / / Volume Laterality Blood (Blood, 04/19/2021 7:05 AM 04/19/20 Venous) CDT 10:30 AM CDT Pedro Donnelly APRN, C.N.P. LAB BLOOD ADD-ON Performing Organization Address City/[facility]/ZIP Code Phon e Number [facility] [address] MORRIS Perdue [facility] [address] [facility] [facility] [place] [address] Laboratory Medicine and Pathology [address] [place] [address] Dr. CACERES Complement C3 (04/19/2021 7:05 AM CDT) athologist Signature Complement C3, S 84 75 - 175 04/19/2021 SDSC mg/dL 11:32 AM CDT Specimen Anatomical Collection Method Collection Time Receive d Time (Source) Location / / Volume Laterality Blood (Blood, 04/19/2021 7:05 AM 04/19/20 Venous) CDT 10:30 AM CDT Pedro Donnelly APRN, C.N.P. LAB BLOOD ADD-ON Performing Organization Address City/State/ZIP Code Phon e Number [facility] [address] [place] [address] Dr [place] [address] [facility] [place] [address] Laboratory Medicine and Pathology [address] [place] [address] Dr. CACERES DNA Double-Stranded (dsDNA) Antibodies, IgG (04/19/2021 7:05 AM CDT) athologist Signature DNA 12.5 <30.0 04/19/2021 [facility] Double-Stranded (Negative) 5:09 PM CDT Ab, IgG, S IU/mL Specimen Anatomical Collection Method Collection Time Receive d Time (Source) Location / / Volume Laterality Blood (Blood, 04/19/2021 7:05 AM 04/19/20 Venous) CDT 10:34 AM CDT Robert Kumar APRNN.PSarina LAB BLOOD ADD-ON Performing Organization Address City/State/ZIP Code Phon e Number [facility] [address] [place], [place] [address] [facility] [place] [address] Laboratory Medicine and Pathology [address] CACERES CRP (C-Reactive Protein) (04/19/2021 7:05 AM CDT) P athologist Signature C-Reactive 7.2 <=8.0 mg/L 04/19/2021 DTL Protein (CRP), 8:03 AM CDT S Specimen Anatomical Collection Method Collection Time Receive d Time (Source) Location / / Volume Laterality Blood (Blood, 04/19/2021 7:05 AM 04/19/20 7:25 Venous) CDT AM CDT Robert Kumar APRNN.P. LAB BLOOD ADD-ON Performing Organization Address City/[facility]/ZIP Code Phon e Number [facility] - [address] [place], [place] [address] [facility] [place]TFort [place], [place] [phone] [place] [address] (ABNORMAL) Sedimentation Rate (04/19/2021 7:05 AM CDT) [facility] [email or web address] Method Time Signature Sedimentation 124 (H) 2 - 22 04/19/2021 DTL Rate, B mm/h 8:04 AM CDT Specimen Anatomical Collection Method Collection Time Receive d Time (Source) Location / / Volume Laterality Blood (Blood, 04/19/2021 7:05 AM 04/19/20 7:15 Venous) CDT AM CDT Pedro Donnelly APRN, Apol[place].N.P. LAB BLOOD ADD-ON Performing Organization Address City/[facility]/ZIP Code Phon e Number [facility] - [address] [place], [place] [address] [place], [place] [phone] [place] [address] (ABNORMAL) CBC with Differential, Blood (04/19/2021 7:05 AM CDT) Patholo gist Method Time Signature Hemoglobin 9.0 (L) 11.6 - 04/19/2021 DTL 15.0 g/dL 7:23 AM CDT Hematocrit 27.4 (L) 35.5 - 04/19/2021 DTL 44.9 % 7:23 AM CDT Erythrocytes 2.97 (L) 3.92 - 04/19/2021 DTL 5.13 7:23 AM CDT x10(12)/L MCV 92.3 78.2 - 04/19/2021 DTL 97.9 fL 7:23 AM CDT RBC Distrib Width 19.2 (H) 12.2 - 04/19/2021 DTL 16.1 % 7:23 AM CDT Platelet Count 161 157 - 371 04/19/2021 DTL x10(9)/L 7:23 AM CDT Leukocytes 3.1 (L) 3.4 - 9.6 04/19/2021 DTL x10(9)/L 7:23 AM CDT Neutrophils 2.18 1.56 - 04/19/2021 DTL 6.45 7:23 AM CDT x10(9)/L Lymphocytes 0.70 (L) 0.95 - 04/19/2021 DTL 3.07 7:23 AM CDT x10(9)/L Monocytes 0.18 (L) 0.26 - 04/19/2021 DTL 0.81 7:23 AM CDT x10(9)/L Eosinophils 0.06 0.03 - 04/19/2021 DTL 0.48 7:23 AM CDT x10(9)/L Basophils <0.03 0.01 - 04/19/2021 DTL 0.08 7:23 AM CDT x10(9)/L Specimen Anatomical Collection Method Collection Time Receive d Time (Source) Location / / Volume Laterality Blood (Blood, 04/19/2021 7:05 AM 04/19/20 7:15 Venous) CDT AM CDT James Joseph M.D. LAB BLOOD ADD-ON Performing Organization Address City/State/ZIP Code Phon e Number [facility] - [address] [place], [place] [address] [facility] [place] [address] [facility] [address] Prothrombin Time (PT) (04/19/2021 7:05 AM CDT) P athologist Signature Prothrombin 11.9 9.4 - 12.5 04/19/2021 DTL Time, P sec 7:31 AM CDT INR 1.1 0.9 - 1.1 04/19/2021 DTL 7:31 AM CDT Comment: ----ADDITIONAL INFORMATION---- Standard intensity warfarin therapeutic range: 2.0 to 3.0 ?? High intensity warfarin therapeutic rang e: 2.5 to 3.5 Specimen Anatomical Collection Method Collection Time Receive d Time (Source) Location / / Volume Laterality Blood (Blood, 04/19/2021 7:05 AM 04/19/20 7:15 Venous) CDT AM CDT James Joseph M.D. LAB BLOOD ADD-ON Performing Organization Address City/State/ZIP Code Phon e Number [facility] - [address] [place] [address] [facility] [place] [address] [facility] 200 [facility] (ABNORMAL) Comprehensive Metabolic Panel (04/19/2021 7:05 AM CDT) Analysis Performed At Patho logist Time Signature Potassium, S 4.5 3.6 - 5.2 04/19/2021 DTL mmol/L 8:03 AM CDT Sodium, S 139 135 - 145 04/19/2021 DTL mmol/L 8:03 AM CDT Chloride, S 107 98 - 107 04/19/2021 DTL mmol/L 8:03 AM CDT Bicarbonate, S 23 22 - 29 04/19/2021 DTL mmol/L 8:03 AM CDT Anion Gap 9 7 - 15 04/19/2021 DTL 8:03 AM CDT BUN (Blood Urea 23 (H) 6 - 21 04/19/2021 DTL Nitrogen), S mg/dL 8:03 AM CDT Creatinine 1.10 (H) 0.59 - 04/19/2021 DTL 1.04 mg/dL 8:03 AM CDT eGFR-Non 56 (L) >=60 04/19/2021 DTL Black/ mL/min/BSA 8:03 AM CDT [place] Comment: ----ADDITIONAL INFORMATION---- Estimated GFR calculated using the 2009 CKD_EPI creatinine equation. eGFR-Black/ 65 >=60 mL/min/BSA 2020 8:03 AM CDT DTL Comment: ----ADDITIONAL INFORMATION---- Estimated GFR calculated using the 2009 CKD_EPI creatinine equation. Calcium, Total, S 9.1 8.6 - 10.0 mg/dL 04/19/2021 8:03 AM CDT DTL Glucose, S 98 70 - 140 mg/dL 04/19/2021 8:03 AM CDT D TL Protein, Total, S 7.7 6.3 - 7.9 g/dL 04/19/2021 8:03 A M CDT DTL Albumin, S 4.3 3.5 - 5.0 g/dL 04/19/2021 8:03 AM CDT D TL Aspartate Aminotransferase (AST), 20 8 - 43 U/L 04/19 8:03 AM CDT DTL S Alkaline Phosphatase, S 85 35 - 104 U/L 04/19/2021 8: 03 AM CDT DTL Alanine Aminotransferase (ALT), S 13 7 - 45 U/L 04/19 8:03 AM CDT DTL Bilirubin, Total, S 0.6 <=1.2 mg/dL 04/19/2021 8:03 AM CDT DTL Specimen Anatomical Collection Method Collection Time Receive d Time (Source) Location / / Volume Laterality Blood (Blood, 04/19/2021 7:05 AM 04/19/20 21 7:25 Venous) CDT AM CDT James Joseph M.D. LAB BLOOD ADD-ON Performing Organization Address City/State/ZIP Code Phon e Number [facility] - [address] [place], [place] [address] [facility] [place] [address] [facility] [address] Miscellaneous Research, B (04/19/2021 7:04 AM CDT) P athologist Signature Number of 5 04/19/2021 HSS Specimens 7:04 AM CDT Specimen Anatomical Collection Method Collection Time Receive d Time (Source) Location / / Volume Laterality Varies (Blood, 04/19/2021 7:04 AM 021 7:04 Venous) CDT AM CDT Magdy Ni M.D. LAB RESEARCH NO RESULT ANDREA HERNÁNDEZ Performing Organization Address City/State/ZIP Code Phon e Number [facility] - [address] [place], [place] [address] [place] [address] [facility] [address] (ABNORMAL) Complement, Total (04/19/2021 7:04 AM CDT) athologist Signature Complement, 25 (L) 30 - 75 04/22/2021 [facility] Total, S U/mL 4:53 PM CDT Specimen Anatomical Collection Method Collection Time Receive d Time (Source) Location / / Volume Laterality Blood (Blood, 04/19/2021 7:04 AM 04/22/20 3:01 Venous) CDT PM CDT Pedro Donnelly APRN, C.N.P. LAB BLOOD NON ADD-ON Performing Organization Address City/[facility]/ZIP Code Phon e Number [facility] [address] [place], [place] [address] [facility] [place] [address] Laboratory Medicine and Pathology [address] CACERES documented in this encounter Visit Diagnoses Diagnosis Other Cirrhosis Of Liver (HCC) Lupus Systemic Erythematosus (HCC) Hepatitis Autoimmune (HCC) Thrombocytopenia (HCC) Lupus Erythematosus documented in this encounter Care Teams Irrigation Teacher Relationship Specialty Start Date End Date Elsewhere, Pcp PCP - General Family Medicine 03/25/21 documented as of this encounter
--- OUTSIDE RECORDS SUMMARY | 2022-05-22 16:01 | XMS_ITS | Encounter Summary ---
:1965 Author Organization [facility] Address [address] [place] [address] Care Team Providers Name Role Phone Unavailable Primary Care Provider Unavailable Reason for Referral MRI/CAT/PET Scan (Routine) - Closed Specialty Diagnoses / Procedures Referred By Contact Refer red To Contact Radiology Diagnoses Bloating Abdominal Landon Bal M.D. [facility] Procedures CT Abdomen Pelvis with IV Contrast CT Abdomen Pelvis without IV Contrast 200 [place] [address] Referral ID Status Reason Start Date Expiration Date Visits Requ ested Visits Authorized [id number] Closed 02/18/2021 02/18/2022 1 1 Reason for Visit MRI/CAT/PET Scan (Routine) - Closed Specialty Diagnoses / Procedures Referred By Contact Refer red To Contact Radiology Diagnoses Bloating Abdominal Landon Bal M.D. [facility] Procedures CT Abdomen Pelvis with IV Contrast CT Abdomen Pelvis without IV Contrast 200 [place] [address] Referral ID Status Reason Start Date Expiration Date Visits Requ ested Visits Authorized [id number] Closed 02/18/2021 02/18/2022 1 1 Encounter Details Date Type Department Care Team Description 02/27/2021 Hospital Encounter Department of Landon Bal Bl[facility] in [place], [place] [address] [place] [phone] Social History Tobacco Use Types Packs/Day Years [...] er 09/23/2021 How often do you attend orthodoxy or sikh services? Never 09/23/2021 Do you belong to any clubs or organizations such as No 09/23/2021 orthodoxy groups, unions, fraternal or athletic groups, or [...] TIMES A DAY BEFORE BREAKFAST AND DINNER. amoxicillin (AMOXIL) amoxicillin 500 mg capsule 0 03/25/2021 500 mg capsule TAKE 1 CAPSULE BY MOUTH FOUR TIMES DAILY UNTIL ALL GO NE mycophenolate Take 2 tablets 360 tablet 1 02/28/2021 021 (CELLCEPT) 500 mg (1,000 mg total) by tabletIndications: mouth 2 (two) times Lupus Systemic a day. Erythematosus (HCC) oxybutynin Take 10 mg by mouth 0 12/21/202009/23 (DITROPAN-XL) 10 mg 24 daily. hr tablet pravastatin (PRAVACHOL) TAKE 1 TABLET BY 90 tablet 3 201909/03/2021 40 mg tablet MOUTH EVERY DAY predniSONE (DELTASONE) Take 1 tablet (5 mg 90 tablet 1 10/0803/25/2021 5 mg tablet total) by mouth 2 (two) times a day. X 1 month, then 1 per day valacyclovir HCl 0 12/07/2019 03/25/20 21 (VALACYCLOVIR ORAL) documented as of this encounter Plan of Treatment Upcoming Encounters Date Type Specialty Care Team Description 07/08/2022 Appointment Laboratory Medicine Pedro Donnelly, HOSPITAL TECHNICIAN, C.N.P. [address] [place] [phone] (Wo rk) 07/08/2022 Office Visit Gastroenterology and Collin Trivedi Hepatology M.Juan [address] [place] [phone] (Wo rk) documented as of this encounter Procedures Procedure Name Priority Date/Time Associated Comments Diagnosis CT ABDOMEN PELVIS RAD - Routine 02/27/2021 10:56 Bloating Resul ts for this WITH IV CONTRAST (most inpatients AM CDT Abdominal procedu re are in and all the results outpatients) section. documented in this encounter Results CT Abdomen Pelvis with IV Contrast (02/27/2021 10:56 AM CDT) Anatomical Region Laterality Modality Abdomen, Pelvis, Abdominal RST LOS, N/A Comp uted Tomography, Computed Abdominal ARZ LOS, Abdominal FLA LOS Jean-Pierre ography Specimen (Source) Anatomical Collection Method Collection Time Re ceived Time Location / / Volume Laterality 02/27/2021 2:57 PM CDT Impressions 02/27/2021 3:21 PM CDT No explanation for abdominal pain. Narrative 02/27/2021 3:21 PM CDT EXAM: ??CT ABDOMEN PELVIS WITH IV CONTRAST COMPARISON: ??08/22/2015 FINDINGS: ??Clear lung bases. No aggress karson osseous lesions. Stable suspected hemangioma in the poste rior right hepatic lobe. Otherwise normal liver. Cholecystectomy. Normal pa ncreas. Stable spleen upper limits of normal in size. Normal adrenal glands, k idneys. Mild calcified atherosclerotic plaque. Unobstructed bowel. No ascites. Tiny hiatal hernia. Fibroid in the left uterine fundus. No lymphadenopathy. No n ephroureterolithiasis. Suspected urethral diverticulum. Tiny fat-containi ng umbilical hernia. No fat stranding to localize a source of abdominal pain. Procedure Note Sanford Singh M.D., Ph.D. - 021 EXAM: CT ABDOMEN PELVIS WITH IV CONTRAST COMPARISON: 08/22/2015 FINDINGS: Clear lung bases. No aggressiv e osseous lesions. Stable suspected hemangioma in the poste rior right hepatic lobe. Otherwise normal liver. Cholecystectomy. Normal pa ncreas. Stable spleen upper limits of normal in size. Normal adrenal glands, k idneys. Mild calcified atherosclerotic plaque. Unobstructed bowel. No ascites. Tiny hiatal hernia. Fibroid in the left uterine fundus. No lymphadenopathy. No n ephroureterolithiasis. Suspected urethral diverticulum. Tiny fat-containi ng umbilical hernia. No fat stranding to localize a source of abdominal pain. IMPRESSION: No explanation for abdominal pain. Landon GRACIA CT PROCEDURES documented in this encounter Visit Diagnoses Diagnosis Bloating Abdominal documented in this encounter Administered Medications Inactive Administered Medications - up to 3 most recent administrations Medication Order MAR Action Action Date Dose Rate Site iohexoL 300 mg iodine/mL solution Given 02/27/2021 10:52 AM CDT 140 mL 1-200 mL (OMNIPAQUE) 1-200 mL, intravenous, Once in imaging, contrast, Starting on Thu02/27/21 at 0956, For 1 dose, Imaging Protocol Orders, Dose per Radiant Medication Guidelines sodium chloride (PF) 0.9 % injection 1-1 00 mL Given 02/27/2021 10:52 AM CDT 50 mL 1-100 mL, intravenous, Once, On 6/23/21 at 1000, For 1 dose, Imaging Protocol Orders documented in this encounter
--- OUTSIDE RECORDS SUMMARY | 2022-05-22 16:01 | XMS_ITS | Encounter Summary ---
:1965 Author Organization [facility] Address [address] [place] [address] Care Team Providers Name Role Phone Elsewhere, Pcp Primary Care Provider Unavailable Encounter Details Date Type Department Care Team Description 04/05/2021 Clinical Communication Division of [place], Gastroenterology in [place], [place] [address] [facility] [address] [place] [phone] Social History Tobacco Use Types Packs/Day Years [...] er 09/23/2021 How often do you attend hinduism or jehovah's witness services? Never 09/23/2021 Do you belong to any clubs or organizations such as No 09/23/2021 hinduism groups, unions, fraternal or athletic groups, or [...] place to sleep or slept in a long term (including now)? Education Answer Date Recorded What is the highest level of school you have completed or 12 th grade 06/17/2019 the highest degree you have received? Sex Assigned at Date Recorded Female 03/09/2018 3:30 PM CDT documented as of this encounter Plan of Treatment Upcoming Encounters Date Type Specialty Care Team Description 07/08/2022 Appointment Laboratory Medicine Pedro Donnelly, IMPREGNATING HELPER, C.N.P. [address] [place] [phone] (Wo rk) 07/08/2022 Office Visit Gastroenterology and Collin Trivedi, Hepatology M.DSarina [address] [place] [phone] (Wo rk) documented as of this encounter Visit Diagnoses Not on filedocumented in this encounter Care Teams Screen Machine Operator Relationship Specialty Start Date End Date Elsewhere, Pcp PCP - General Family Medicine 03/25/21 documented as of this encounter
--- OUTSIDE RECORDS SUMMARY | 2022-05-22 16:01 | XMS_ITS | Encounter Summary ---
:[address] [facility] Address [address] [place] [address] Care Team Providers Name Role Phone Elsewhere, Pcp Primary Care Provider Unavailable Encounter Details Date Type Department Care Team Description 03/25/2021 Clinical Communication Division of [facility], Landon Mosher, Rheumatology in [place], [place] [address] [place] [phone] Social History Tobacco Use Types Packs/Day Years [...] er 09/23/2021 How often do you attend uatsdin or jehovah's witness services? Never 09/23/2021 Do you belong to any clubs or organizations such as No 09/23/2021 uatsdin groups, unions, fraternal or athletic groups, or [...] Description 07/08/2022 Appointment Laboratory Medicine Pedro Donnelly, TRAFFIC LINE PAINTER, C.N.P. [address] [place] [phone] (Claudia vera) 07/08/2022 Office Visit Gastroenterology and Collin Trivedi, Hepatology M.DSarina [address] [place] [phone] (Claudia vera) documented as of this encounter Visit Diagnoses Not on filedocumented in this encounter Care Teams Mercerizing Range Controller Relationship Specialty Start Date End Date Elsewhere, Pcp PCP - General Family Medicine 03/25/21 documented as of this encounter
--- OUTSIDE RECORDS SUMMARY | 2022-05-22 16:01 | XMS_ITS | Encounter Summary ---
:1965 Author Organization [facility] Address [address] [place] [address] Care Team Providers Name Role Phone Elsewhere, Pcp Primary Care Provider Unavailable Encounter Details Date Type Department Care Team Description 04/30/2021 Orders Only Division of Matt Mireles, Medication T herapy Long Rheumatology in R.N. Term Not Anticoagulant [place], [place] [phone] (Primary Dx) [address] [facility] (Work) [place] [address] Social History Tobacco Use Types Packs/Day Years [...] er 09/23/2021 How often do you attend scientology or mandaen services? Never 09/23/2021 Do you belong to any clubs or organizations such as No 09/23/2021 scientology groups, unions, fraternal or athletic groups, or [...] Laboratory Medicine Pedro Donnelly APRN, C.N.P. [address] [place] [phone] (Wo rk) 07/08/2022 Office Visit Gastroenterology and Collin Trivedi Hepatology Chloe [address] [place] [phone] (Wo rk) documented as of this encounter Results AST (Aspartate Aminotransferase) (05/03/2021 2:05 PM CDT) [facility] [place] Method Time Signature Aspartate 19 8 - 43 05/03/2021 OW[place] Aminotransferase U/L 4:37 PM CDT (AST), P Specimen Anatomical Collection Method Collection Time Receive d Time (Source) Location / / Volume Laterality Blood (Blood, 05/03/2021 2:05 PM 05/03/20 21 3:59 Venous) CDT PM CDT Pedro Donnelly APRN, C.N.P. LAB BLOOD ADD-ON Performing Organization Address City/State/ZIP Code Phon e Number [facility] [address] [place] [address] [place] [address] System in [place] [address] (ABNORMAL) CBC with Differential, Blood (05/03/2021 2:05 PM CDT) [facility] [place] Method Time Signature Hemoglobin 9.5 (L) 11.6 [...] Laterality Blood (Blood, 05/03/2021 2:05 PM 05/03/20 2:05 Venous) CDT PM CDT Pedro Donnelly APRN C.N.P. LAB BLOOD ADD-ON Performing Organization Address City/State/ZIP Code Phon e Number [facility] [address] [place] [address] [place] [address] System in [place] [address] [facility] documented in this encounter Visit Diagnoses Diagnosis Medication Therapy Combine Mechanic Not Anticoa gulant - Primary documented in this encounter Care Teams Leveler Relationship Specialty Start Date End Date Elsewhere, Pcp PCP - General Family Medicine 03/25/21 documented as of this encounter
--- OUTSIDE RECORDS SUMMARY | 2022-05-22 16:01 | XMS_ITS | Encounter Summary ---
:1965 Author Organization [facility] Address [address] [place] [address] Care Team Providers Name Role Phone Elsewhere, Pcp Primary Care Provider Unavailable Encounter Details Date Type Department Care Team Description 05/03/2021 Ancillary Department of Pedro Donnelly Systemi c Erythematosus (HCC); Procedure Ophthalmology in R, MANAGER AGRICULTURAL, High Risk M edication [place], [place] C.N.P. [address] [facility] [address] [place] [phone] Social History Tobacco Use Types Packs/Day Years [...] er 09/23/2021 How often do you attend mormon or yarsanism services? Never 09/23/2021 Do you belong to any clubs or organizations such as No 09/23/2021 mormon groups, unions, fraternal or athletic groups, or [...] Medicine Pedro Donnelly APRN, C.N.P. [address] [place] [phone] (Claudia rk) 07/08/2022 Office Visit Gastroenterology and Collin Trivedi Hepatology MAyala [address] [place] [phone] (Claudia rk) documented as of this encounter Procedures Procedure Name Priority Date/Time Associated Diagnosis Comme nts FUNDUS PHOTOS - OU Routine 05/03/2021 9:10 AM Lupus Systemic R esults for this - BOTH EYES CDT Erythematosus (H CC) procedure are in High Risk Medication the res ults section. documented in this encounter Results Fundus Photos - OU - Both Eyes (05/03/2021 9:10 AM CDT) Specimen (Source) Anatomical Location Collection Method / Collectio n Time Received Time / Laterality Volume Narrative OPHTHALMOLOGY IMAGING EXAM - 06/03/20 21 9:59 AM CDT Right Eye Fundus photo type obtained is [employer] scence. Left Eye Fundus photo type obtained is [employer] scence. Notes See note for results Pedro Donnelly APRN, C.N.P. OPHTH PHOTOGRAPHY Performing Organization Address City/State/ZIP Code Phon e Number OPHTHALMOLOGY IMAGING EXAM documented in this encounter Visit Diagnoses Diagnosis Lupus Systemic Erythematosus (HCC) High Risk Medication documented in this encounter Care Teams Digital Camera Technician Relationship Specialty Start Date End Date Elsewhere, Pcp PCP - General Family Medicine 03/25/21 documented as of this encounter
--- OUTSIDE RECORDS SUMMARY | 2022-05-22 16:01 | XMS_ITS | Encounter Summary ---
:1965 Author Organization [facility] Address [address] [place] [address] Care Team Providers Name Role Phone Elsewhere, Pcp Primary Care Provider Unavailable Reason for Visit Outpatient (Routine) - Closed Specialty Diagnoses / Procedures Referred By Contact Refer red To Contact Hematology Diagnoses Lymphopenia Anemia Landon Bal M.D. [facility] [address] [place] [address] Referral ID Status Reason Start Date Expiration Date Visits Requ ested Visits Authorized [id number] Closed 02/14/2021 02/14/2022 1 1 Encounter Details Date Type Department Care Team Description 03/25/2021 Comprehensive Visit Division of Landon Bal M.D. Lupus Systemic Erythematosus (HCC) (Primary Dx); [facility] [address] [place] [phone] Lymphopenia; [place], [facility] [address] [place] [phone] Social History Tobacco Use Types Packs/Day Years [...] er 09/23/2021 How often do you attend yarsani or baptist services? Never 09/23/2021 Do you belong to any clubs or organizations such as No 09/23/2021 yarsani groups, unions, fraternal or athletic groups, or [...] Sign Reading Time Taken Comments Blood Pressure 104/63 03/25/2021 9:53 AM CDT Pulse 69 03/25/2021 9:53 AM CDT Temperature 36.8 ??C (98.2 ??F) 03/25/2021 9:53 AM CDT Respiratory Rate - - Oxygen Saturation - - Inhaled Oxygen Concentration - - Weight 107 kg (235 lb 5.5 oz) 03/25/2021 9:53 AM CDT Height 168.8 cm (5' 6.46) 03/25/2021 9:53 AM CDT Body Mass Index 37.46 03/25/2021 9:53 AM CDT documented in this encounter Consult Notes Inwards, Royal Pope M.D. - 03/25/2021 10:00 AM CDT This is a supervisory note. I saw and evaluated the patient, participating in the tolbert portions of the visit including the physical examination, history, and review of testing results. I reviewed the note of Dr. Sierra and agree with the findings and plan. In addition I would like to add pertinent history of longstanding lupus currently off of medication but on CellCept recently, pertinent physical exam finding no palpable adenopathy and spleen is not palpable, and plan of further evaluation for determination of current level of activity of hemolysis. Himanshu Sierra M.D. - 03/25/2021 10:00 AM CDT SUBJECTIVE Oncology History Overview Note 06/18/[address] Herrera in hematology. 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 She should be treated with prednisone or other lupus-directed therapy per rheumatology to control the hematologic parameters. 01/31/2021 Follow up with her rheumatology team. Is on mycophenolate and will be increasing doses. Not on prednisone. Concern regarding splenomegaly which was stable. Flow cytometry ordered and negative. Concern for lymphoproliferative disease given splenomegaly and cytopenias and referred for repeat hematology consult. OBJECTIVE Admission Weight: 107 kg Current Weight: 107 kg Temperature: [36.8 ??C] 36.8 ??C Blood Pressure: (104)/(63) 104/63 Pulse Rate: [69] 69 PHYSICAL EXAM No palpable spleen. No lymphadenopathy. Mild rash on forehead along hairline. Rash on right arm. Small half centimeter sore on roof of mouth. ASSESSMENT / PLAN #1 Lymphopenia #2 Anemia #3 Lupus Systemic Erythematosus (HCC) Ms. Danielson has mild anemia and thrombocytopenia secondary to her SLE. She has a documented warm autoantibody. This chronic low level hemolysis is likely contributing to her borderline splenomegaly. Byrecent CT her spleen was actually within the upper limit of normal. She was seen by hematology 9 years ago and there was the same impression as to the cause of the cytopenias. 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 This also could be contributing to a degree of splenomegaly. She had recently transitioned to CellCept but discontinued after she felt it was causing a rash. I spoke to her rheumatology Dr. Bal and he recommends she get back on therapy for the lupus, and couldrestart the CellCept. I relayed this to Ms. Homburg but she had questions about whether she wanted to try CellCept again because she had concerns about the rash and felt it wasn't improving the serologic markers of her lupus anyways. I recommended she then send a message to her rrheumatologyteam todaybecause she needs to start some form of treatment. She had avoided Plaquenil because of perceived cost, but I showed her on [employer] she could get it for a very affordable valadez. I do not know if it is possible to get it with those coupons on an indefinite basis. She has already sent an iin baskettoDr. Moder asking to discuss which agent to restart. I recommend the half centimeter sore on the roof of her mouth be observed and examined when she seesrheumatology next month. PLAN: ?? Work with rheumatology to restart lupus treatment now ?? Recommend observation of the sore on the roof of her mouth Seen and discussed with Dr. Geoffrey Sierra M.D. 03/25/21 documented in this encounter Plan of Treatment Upcoming Encounters Date Type Specialty Care Team Description 07/08/2022 Appointment Laboratory Medicine Pedro Donnelly, PAPER ROLL MACHINE OPERATOR, C.N.P. [address] [place] [phone] (Claudia vera) 07/08/2022 Office Visit Gastroenterology and Collin Trivedi Hepatology Chloe [address] [place] [phone] (Claudia vera) documented as of this encounter Results (ABNORMAL) Morphology Evaluation (Special Smear) (03/25/2021 11:15 AM CDT) athologist Signature Neutrophilic Segs 70 50 - 75 % 03/25/2021 DHPM and Bands 1:29 PM CDT Lymphocytes 23 18 - 42 % 03/25/2021 DHPM 1:29 PM CDT Monocytes 4 2 - 11 % 03/25/2021 DHPM 1:29 PM CDT Eosinophils 1 1 - 3 % 03/25/2021 DHPM 1:29 PM CDT Basophils 1 0 - 2 % 03/25/2021 [facility] 1:29 PM CDT Myelocytes 1 (H) <0.5 % 03/25/2021 [facility] 1:29 PM CDT Manual Absolute 3.08 1.56 - 03/25/2021 [facility] Neutrophil Count 6.45 1:29 PM CDT x10(9)/L Comment: ----ADDITIONAL INFORMATION---- The manual absolute neutrophil count is derived from a manual differential count and therefore is not exactly comparable to the automated absolute joslyn trophil count. Interpretation SeeComment 03/25/2021 1:29 PM CDT D HPM Comment: Polychromasia is present. No other morph ologic features of hemolysis are seen. Reviewed by: Lyle 03/25/2021 1:29 PM CDT [facility] Specimen Anatomical Collection Method Collection Time Receive d Time (Source) Location / / Volume Laterality Blood (Blood, 03/25/2021 11:15 03/25/2021 Venous) AM CDT 11:41 AM CDT Himanshu Sierra M.D. LAB BLOOD ADD-ON Performing Organization Address City/[facility] Phon e Number [facility] - [address] (ABNORMAL) Reticulocytes (03/25/2021 11:15 AM CDT) [facility] gist Method Time Signature Reticulocytes, B 3.27 (H) 0.60 - 03/25/2021 DTL 2.71 % 11:55 AM CDT Absolute 111.5 (H) 30.4 - 03/25/2021 DTL Reticulocyte 110.9 11:55 AM CDT x10(9)/L Specimen Anatomical Collection Method Collection Time Receive d Time (Source) Location / / Volume Laterality Blood (Blood, 03/25/2021 11:15 03/25/2021 Venous) AM CDT 11:41 AM CDT Himanshu Sierra M.D. LAB BLOOD ADD-ON Performing Organization Address City/[facility] Phon e Number [facility] - [address] [place] [address] Laboratories-[facility] [address] (ABNORMAL) CBC with Differential, Blood (03/25/2021 11:15 AM CDT) [facility] Method Time Signature Hemoglobin 9.7 (L) 11.6 - 03/25/2021 DTL 15.0 g/dL 11:55 AM CDT Hematocrit 29.5 (L) 35.5 - 03/25/2021 DTL 44.9 % 11:55 AM CDT Erythrocytes 3.41 (L) 3.92 - 03/25/2021 DTL 5.13 11:55 AM CDT x10(12)/L MCV 86.5 78.2 - 03/25/2021 DTL 97.9 fL 11:55 AM CDT RBC Distrib Width 15.5 12.2 - 03/25/2021 DTL 16.1 % 11:55 AM CDT Platelet Count 135 (L) 157 - 371 03/25/2021 DTL x10(9)/L 11:55 AM CDT Leukocytes 4.4 3.4 - 9.6 03/25/2021 DTL x10(9)/L 11:55 AM CDT Neutrophils 3.15 1.56 - 03/25/2021 DTL 6.45 11:55 AM CDT x10(9)/L Lymphocytes 0.89 (L) 0.95 - 03/25/2021 DTL 3.07 11:55 AM CDT x10(9)/L Monocytes 0.32 0.26 - 03/25/2021 DTL 0.81 11:55 AM CDT x10(9)/L Eosinophils 0.04 0.03 - 03/25/2021 DTL 0.48 11:55 AM CDT x10(9)/L Basophils <0.03 0.01 - 03/25/2021 DTL 0.08 11:55 AM CDT x10(9)/L Specimen Anatomical Collection Method Collection Time Receive d Time (Source) Location / / Volume Laterality Blood (Blood, 03/25/2021 11:15 03/25/2021 Venous) AM CDT 11:41 AM CDT Himanshu Sierra M.D. LAB BLOOD ADD-ON Performing Organization Address City/State/ZIP Code Phon e Number [facility] - [address] [place], [place] [address] [facility] [place] [address] Laboratories-[address] Hepatic Function Panel (03/25/2021 11:14 AM CDT) Patholo gist Method Time Signature Bilirubin, Total, S 0.6 <=1.2 03/25/2021 DTL mg/dL 12:07 PM CDT Bilirubin, Direct, S <0.2 0.0 - 0.3 03/25/2021 DTL mg/dL 12:07 PM CDT Aspartate 21 8 - 43 03/25/2021 DTL Aminotransferase U/L 12:07 PM CDT (AST), S Alanine 18 7 - 45 03/25/2021 DTL Aminotransferase U/L 12:07 PM CDT (ALT), S Alkaline 90 35 - 104 03/25/2021 DTL Phosphatase, S U/L 12:07 PM CDT Albumin, S 3.9 3.5 - 5.0 03/25/2021 DTL g/dL 12:07 PM CDT Protein, Total, S 7.1 6.3 - 7.9 03/25/2021 DTL g/dL 12:07 PM CDT Specimen Anatomical Collection Method Collection Time Receive d Time (Source) Location / / Volume Laterality Blood (Blood, 03/25/2021 11:14 03/25/2021 Venous) AM CDT 11:36 AM CDT Himanshu Sierra M.D. LAB BLOOD ADD-ON Performing Organization Address City/State/[facility] Phon e Number [facility] - [address] [place], [place] [address] [facility] [place] [address] Laboratories-[address] (ABNORMAL) Iron and Total Iron-Binding Capacity (03/25/2021 11:14 AM CDT) P athologist Signature Iron 61 35 - 145 03/25/2021 DTL mcg/dL 12:07 PM CDT Total Iron 170 (L) 250 - 400 03/25/2021 DTL Binding mcg/dL 12:07 PM CDT Capacity Percent 36 14 - 50 % 03/25/2021 DTL Saturation 12:07 PM CDT Specimen (Source) Anatomical Collection Method Collection Time Re ceived Time Location / / Volume Laterality Blood (Blood, 03/25/2021 11:14 03/25/2021 Peripheral Draw) AM CDT 11:36 AM CD T Himanshu Sierra M.D. LAB BLOOD ADD-ON Performing Organization Address City/[facility]/ZIP [facility] Phon e Number [facility] - [address] [place], [place] [address] [facility] [place], [place] [id number] [place] [address] [address] [facility] (ABNORMAL) Ferritin (03/25/2021 11:14 AM CDT) P athologist Signature Ferritin, S 345 (H) 11 - 307 03/25/2021 DTL mcg/L 12:55 PM CDT Specimen Anatomical Collection Method Collection Time Receive d Time (Source) Location / / Volume Laterality Blood (Blood, 03/25/2021 11:14 03/25/2021 Venous) AM CDT 11:36 AM CDT Himanshu Sierra M.D. LAB BLOOD ADD-ON Performing Organization Address City/[facility] Phon e Number [facility] - [address] [place], [place] [address] [place] [address] [place], [place] [phone] [place] [address] First [facility] LD (Lactate Dehydrogenase) (03/25/2021 11:14 AM CDT) Analysis Performed At Patho logist Time Signature Lactate 191 122 - 222 03/25/2021 DTL Dehydrogenase U/L 12:07 PM CDT (LD), S Specimen (Source) Anatomical Collection Method Collection Time Re ceived Time Location / / Volume Laterality Blood (Blood, 03/25/2021 11:14 03/25/2021 Peripheral Draw) AM CDT 11:36 AM CD T Himanshu Sierra M.D. LAB BLOOD NON ADD-ON Performing Organization Address City/State/ZIP Code Phon e Number [facility] - [address] [place], [place] [address] [facility] [facility] [place], [place] [phone] [place] [address] Haptoglobin (03/25/2021 11:14 AM CDT) P athologist Signature Haptoglobin, S 132 30 - 200 03/25/2021 SDS mg/dL 4:39 PM CDT Specimen (Source) Anatomical Collection Method Collection Time Re ceived Time Location / / Volume Laterality Blood (Blood, 03/25/2021 11:14 03/25/2021 3:52 Peripheral Draw) AM CDT PM CDT Himanshu Sierra M.D. LAB BLOOD ADD-ON Performing Organization Address City/State/ZIP Code Phon e Number [facility] [address] [place], [place] [address] [facility] [place] [address] Laboratory Medicine and Pathology [address] [place] Direct Antiglobulin Test (Poly) (03/25/2021 11:14 AM CDT) Patholo gist Method Time Signature Direct See Addl Negative 03/25/2021 ETRM Antiglobulin Testing 2:37 PM CDT Test, Polyspecific Specimen (Source) Anatomical Collection Method Collection Time Re ceived Time Location / / Volume Laterality Blood (Blood, 03/25/2021 11:14 03/25/2021 Peripheral Draw) AM CDT 11:35 AM CD T Himanshu Sierra M.D. LAB BLOOD BANK TEST ORDERABL ES Performing Organization Address City/[facility] Code Phon e Number [facility] - [address] [place], [place] [address] [place] [address] Laboratories-[facility] [address] documented in this encounter Visit Diagnoses Diagnosis Lupus Systemic Erythematosus (HCC) - Afia vinh Lymphopenia Anemia documented in this encounter Care Teams Head Neck Surgeon Relationship Specialty Start Date End Date Elsewhere, Pcp PCP - General Family Medicine 03/25/21 documented as of this encounter
--- OUTSIDE RECORDS SUMMARY | 2022-05-22 16:01 | XMS_ITS | Encounter Summary ---
:1965 Author Organization [facility] Address [address] [place] [address] Care Team Providers Name Role Phone Elsewhere, Pcp Primary Care Provider Unavailable Reason for Referral Outpatient (Routine) - Closed Specialty Diagnoses / Procedures Referred By Contact Refer red To Contact Diagnoses Other Cirrhosis Of Liver (HCC) James Joseph M.D. [facility] Procedures US Abdomen Complete US Abdomen Limited Liver [address] [place] [phone] Referral ID Status Reason Start Date Expiration Date Visits Requ ested Visits Authorized [id number] Closed 10/19/2020 10/19/2021 1 1 Reason for Visit Outpatient (Routine) - Closed Specialty Diagnoses / Procedures Referred By Contact Refer red To Contact Diagnoses Other Cirrhosis Of Liver (HCC) James Joseph M.D. [facility] Procedures US Abdomen Complete US Abdomen Limited Liver [address] [place] [phone] Referral ID Status Reason Start Date Expiration Date Visits Requ ested Visits Authorized [id number] Closed 10/19/2020 10/19/2021 1 1 Encounter Details Date Type Department Care Team Description 04/19/2021 Hospital Encounter Department of James Joseph Cirrhosis Of Radiology, Maxi Burgos M.D. Liver (HCC) Building, in [address] [place] [address] 200 [facility] [phone] [place], [place] [phone] (Work) [phone] Social History Tobacco Use Types Packs/Day Years [...] er 09/23/2021 How often do you attend catholic or baptism services? Never 09/23/2021 Do you belong to any clubs or organizations such as No 09/23/2021 catholic groups, unions, fraternal or athletic groups, or [...] hydrOXYchloroQUINE Take 2 tablets 180 tablet 1 04/19/2021 (PLAQUENIL) 200 mg tablet (400 mg total) [...] Description 07/08/2022 Appointment Laboratory Medicine Pedro Donnelly, HIGH WIRE ARTIST, C.N.P. [address] [place] [phone] (Claudia rk) 07/08/2022 Office Visit Gastroenterology and Collin Trivedi Hepatology [place] [address] [place] [address] (Claudia rk) documented as of this encounter Procedures Procedure Name Priority Date/Time Associated Diagnosis Comme nts US ABDOMEN COMPLETE Routine 04/19/2021 8:56 AM Other Cirrhosis Of Results for this CDT Liver (HCC) procedure are i n the results section. documented in this encounter Results US Abdomen Complete (04/19/2021 8:56 AM CDT) Anatomical Region Laterality Modality Abdomen, Ultrasound RST LOS, Ultrasound ARZ LOS, Ultrasound FLA N/A Ultrasound LOS Specimen (Source) Anatomical Collection Method Collection Time Re ceived Time Location / / Volume Laterality 04/19/2021 8:57 AM CDT Impressions 04/19/2021 9:06 AM CDT 1. Slightly coarse hepatic parenchymal echotexture consistent with chronic parenchymal disease. Stable hemangioma i n the right lobe of the liver. Antegrade flow in the main portal vein. Ultrasound LI RADS 1A. 2. Splenomegaly. 3. Parenchymal thinning of both kidneys. Narrative 04/19/2021 9:06 AM CDT EXAM: US ABDOMEN COMPLETE COMPARISON: Ultrasound 10/19/2020 FINDINGS: Liver: Slightly coarse parenchymal echot exture consistent with chronic parenchymal disease. Again seen is an ec hogenic lesion in the right lobe of the liver measuring 3.5 cm x 2.6 cm x 3.5 cm , previously 3.6 cm, compatible with a hemangioma as characterized on CT 2014 and 02/27/2021. ??Antegrade flow in the main portal vein. Gallbladder: Surgically absent. Intrahepatic ducts: Not dilated. Common duct: Not dilated. Pancreas: Normal where seen. Right kidney: ?? Length: 10.6 cm. Normal echogenicity. Pa renchyma thinning. No hydronephrosis. Left kidney: ?? Length: 11.1 cm. Normal echogenicity. Pa renchymal thinning. No hydronephrosis. Spleen: Splenomegaly. Small accessory sp lenule. Spleen length: 15.9 cm Aorta: Normal caliber. IVC: Normal where seen. Ascites: ??None. Ultrasound LI-RADS score is as follows: Ultrasound Category: US-1: ??Negative (N o US evidence of HCC). ??Recommend continued routine surveillance. Visualization Score: A: ??Normal or mini mal limitations (limitations, if any, are unlikely to meaningfully affect sensitiv ity). Ultrasound LI-RADS is a standardized sys tem for imaging technique, interpretation, reporting, and data agus ection for screening or surveillance ultrasound exams in patients at risk for developing HCC. Ultrasound LI-RADS is supported and endorsed by the [employer]. More information can be found on the following link: https://www.acr.org/Clinical-Resources/R aoyjvggn-rov-Hzhy-Systems/LI-RADS/Ultras fbx-MS-KJUM-v2017 Procedure Note Tanesha Baltazar M.D. - 04/19/2021Form atting of this note might be different from the original. EXAM: US ABDOMEN COMPLETE COMPARISON: Ultrasound 10/19/2020 FINDINGS: Liver: Slightly coarse parenchymal echot exture consistent with chronic parenchymal disease. Again seen is an ec hogenic lesion in the right lobe of the liver measuring 3.5 cm x 2.6 cm x 3.5 cm , previously 3.6 cm, compatible with a hemangioma as characterized on CT 2014 and 02/27/2021. Antegrade flow in the main portal vein. Gallbladder: Surgically absent. Intrahepatic ducts: Not dilated. Common duct: Not dilated. Pancreas: Normal where seen. Right kidney: Length: 10.6 cm. Normal echogenicity. Pa renchyma thinning. No hydronephrosis. Left kidney: Length: 11.1 cm. Normal echogenicity. Pa renchymal thinning. No hydronephrosis. Spleen: Splenomegaly. Small accessory sp lenule. Spleen length: 15.9 cm Aorta: Normal caliber. IVC: Normal where seen. Ascites: None. Ultrasound LI-RADS score is as follows: Ultrasound Category: US-1: Negative (No US evidence of HCC). Recommend continued routine surveillance. Visualization Score: A: Normal or minima l limitations (limitations, if any, are unlikely to meaningfully affect sensitiv ity). Ultrasound LI-RADS is a standardized sys tem for imaging technique, interpretation, reporting, and data agus ection for screening or surveillance ultrasound exams in patients at risk for developing HCC. Ultrasound LI-RADS is supported and endorsed by the [employer]. More information can be found on the following link: https://www.acr.org/Clinical-Resources/R wrxkpqso-sgw-Cuws-Systems/LI-RADS/Ultras yra-MQ-FOMO-v2017 IMPRESSION: 1. Slightly coarse hepatic parenchymal e chotexture consistent with chronic parenchymal disease. Stable hemangioma i n the right lobe of the liver. Antegrade flow in the main portal vein. Ultrasound LI RADS 1A. 2. Splenomegaly. 3. Parenchymal thinning of both kidneys. James GRACIA US PROCEDURES documented in this encounter Visit Diagnoses Diagnosis Other Cirrhosis Of Liver (HCC) documented in this encounter Care Teams Lime Boiler Relationship Specialty Start Date End Date Elsewhere, Pcp PCP - General Family Medicine 03/25/21 documented as of this encounter
--- OUTSIDE RECORDS SUMMARY | 2022-05-22 16:01 | XMS_ITS | Encounter Summary ---
:1965 Author Organization [facility] Address [address] [place] [address] Care Team Providers Name Role Phone Elsewhere, Pcp Primary Care Provider Unavailable Reason for Visit Reason Comments Lab Monitoring azathioprine labs Encounter Details Date Type Department Care Team Description 04/24/2021 Documentation Division of Pedro Donnelly, Lab Monito ring Rheumatology in [facility], C.N.P. (azathioprine labs) [place], [place] [address] [facility] [address] [place] [phone] Social History Tobacco Use Types Packs/Day Years [...] er 09/23/2021 How often do you attend alevism or sikhism services? Never 09/23/2021 Do you belong to any clubs or organizations such as No 09/23/2021 alevism groups, unions, fraternal or athletic groups, or [...] documented as of this encounter Progress Notes Matt Mireles R.N. - 04/24/2021 1:22 PM CDT Patient had labs 04/19 with appointment. Per note, patient can continue every 2- month labs for azathioprine. Per E[facility] patient has 3, 2-week lab checks left (05/03, 05/17 & 05/31). Will send note to provider to see how patient should proceed with labs. Pedro Donnelly APRN, C.N.P. - 04/24/2021 1:22 PM CDT You are correct, patient should continue with her every two week labs to finish out the protocol then she can switch to every two months. You can let her know that we want to ensure her safety by monitoring very closely. Thank you, Pedro Vesna Guzmán R.N. - 04/24/2021 1:22 PM CDT POM sent to patient regarding this message. documented in this encounter Plan of Treatment Upcoming Encounters Date Type Specialty Care Team Description 07/08/2022 Appointment Laboratory Medicine Pedro Donnelly, LAB DIRECTOR, C.N.P. [address] [place] [phone] (Wo rk) 07/08/2022 Office Visit Gastroenterology and Collin Trivedi Hepatology Chloe [address] [place] [phone] (Claudia rk) documented as of this encounter Visit Diagnoses Not on filedocumented in this encounter Care Teams Commercial Banker Relationship Specialty Start Date End Date Elsewhere, Pcp PCP - General Family Medicine 03/25/21 documented as of this encounter
--- OUTSIDE RECORDS SUMMARY | 2022-05-22 16:01 | XMS_ITS | Encounter Summary ---
:1965 Author Organization [facility] Address [address] [place] [address] Care Team Providers Name Role Phone Elsewhere, Pcp Primary Care Provider Unavailable Encounter Details Date Type Department Care Team Description 04/19/2021 Hospital Encounter Department of Pedro Donnelly Lupus S ystemic Erythematosus (HCC); Laboratory R, TOW OPERATOR, Hepatitis Autoi mmune (HCC); Medicine and C.N.P. Thrombocytopenia (HCC) Pathology, [place] [address] [place] [address], in [facility] [address] [place] [address] [address] [place] [address] (Work) [place], [place] [phone] (Fax) [phone] Social History Tobacco Use Types Packs/Day Years [...] er 09/23/2021 How often do you attend hoahaoism or caodaism services? Never 09/23/2021 Do you belong to any clubs or organizations such as No 09/23/2021 hoahaoism groups, unions, fraternal or athletic groups, or [...] Description 07/08/2022 Appointment Laboratory Medicine Pedro Donnelly, TOW OPERATOR, C.N.P. [address] [place] [address] (Wo rk) 07/08/2022 Office Visit Gastroenterology and Collin Trivedi, Hepatology Chloe [address] [place] [phone] (Wo rk) documented as of this encounter Procedures Procedure Name Priority Date/Time Associated Diagnosis Comme nts MO OSMOLALITY ASSAY Routine 04/19/2021 7:10 AM Re sults for this URINE CDT procedure are i n the results section. DIPSTICK, U Routine 04/19/2021 7:10 AM Results f or this CDT procedure are i n the results section. PH, RANDOM, U Routine 04/19/2021 7:10 AM Results for this CDT procedure are i n the results section. MICROSCOPIC MANUAL Routine 04/19/2021 7:10 AM Res ults for this CDT procedure are i n the results section. URINALYSIS WITH Routine 04/19/2021 7:10 AM Lupus Systemic Resu lts for this MICROSCOPIC CDT Erythematosus (H CC) procedure are in Hepatitis Autoimmune the res ults (HCC) section. Thrombocytopenia (HCC) documented in this encounter Results (ABNORMAL) Dipstick, Urine (04/19/2021 7:10 AM CDT) [facility] gist Method Time Signature Hemoglobin, Negative Negative 04/19/2021 DTL QL, U 7:58 AM CDT Leukocyte Small (A) Negative 04/19/2021 DTL Esterase, U 7:58 AM CDT Nitrite, U Negative Negative 04/19/2021 DTL 7:58 AM CDT Ketone, U Negative Negative 04/19/2021 DTL mg/dL 7:58 AM CDT Glucose, U Negative Negative 04/19/2021 DTL mg/dL 7:58 AM CDT Specimen Anatomical Collection Method Collection Time Receive d Time (Source) Location / / Volume Laterality Urine 04/19/2021 7:10 AM 7:44 CDT AM CDT Pedro Donnelly APRN C.N.P. LAB URINE ORDERABLES Performing Organization Address City/State/ZIP Code Phon e Number [facility] - [facility] [place], [place] [address] [facility] [place] [place] [address] Laboratories-[place] Main [address] pH, Random, Urine (04/19/2021 7:10 AM CDT) athologist Signature pH, Random, U 5.4 4.5 - 8.0 04/19/2021 DTL 9:03 AM CDT Specimen Anatomical Collection Method Collection Time Receive d Time (Source) Location / / Volume Laterality Urine 04/19/2021 7:10 AM 7:44 CDT AM CDT Pedro Donnelly APRN, C.N.P. LAB URINE ORDERABLES Performing Organization Address [facility] Phon e Number [facility] - [address] Osmolality, Urine (04/19/2021 7:10 AM CDT) athologist Signature Osmolality, U 553 150 - 1150 04/19/2021 DTL mOsm/kg 9:03 AM CDT Specimen Anatomical Collection Method Collection Time Receive d Time (Source) Location / / Volume Laterality Urine 04/19/2021 7:10 AM 7:44 CDT AM CDT Pedro Donnelly APRN, C.N.P. LAB URINE ORDERABLES Performing Organization Address City/[facility] Phon e Number [facility] - [address] (ABNORMAL) Microscopic Manual (04/19/2021 7:10 AM CDT) athologist Signature Microscopy Abnormal 04/19/2021 DTL 8:24 AM CDT RBC <3 <3 /hpf 04/19/2021 DTL 8:24 AM CDT WBC 31-40 (A) /hpf 04/19/2021 DTL 8:24 AM CDT Comment: ----REFERENCE VALUE---- 1-3 ??(Males) 1-10 (Females) Casts, Hyaline 1-3 /lpf 04/19/2021 8:24 AM CDT DT L Squamous Epithelial Cells, U 1-3 /hpf 04/19/2021 8:24 AM CDT DTL Bacteria Present (A) 04/19/2021 8:24 AM CDT DTL Specimen Anatomical Collection Method Collection Time Receive d Time (Source) Location / / Volume Laterality Urine 04/19/2021 7:10 AM 7:44 CDT AM CDT Pedro Donnelly APRN, C.N.P. LAB URINE ORDERABLES Performing Organization Address City/[facility] Code Phon e Number [facility] - [address] [place] [address] [address] (ABNORMAL) Urinalysis with Microscopic: Urine, Voided (04/19/2021 7:10 AM CDT) [facility] Method Time Signature Source Midstream 04/19/2021 DTL 7:43 AM CDT Color, U Yellow 04/19/2021 DTL 7:44 AM CDT Clarity, U Cloudy (A) 04/19/2021 DTL 7:44 AM CDT Protein, U 15 <26 mg/dL 04/19/2021 DTL 9:22 AM CDT Protein/Osmola 0.27 <0.42 04/19/2021 DTL lity ratio 9:22 AM CDT Predicted 24 205 mg/24 h 04/19/2021 DTL Hr Protein 9:22 AM CDT Predicted 51-828 mg/24 h 04/19/2021 DTL Range 9:22 AM CDT Specimen Anatomical Collection Method Collection Time Receive d Time (Source) Location / / Volume Laterality Urine (Urine, 04/19/2021 7:10 AM 04/19/20 7:43 Voided) CDT AM CDT Pedro Donnelly APRN, C.N.P. LAB URINE ORDERABLES Performing Organization Address City/State/[facility] Code Phon e Number [facility] - [address] documented in this encounter Visit Diagnoses Diagnosis Lupus Systemic Erythematosus (HCC) Hepatitis Autoimmune (HCC) Thrombocytopenia (HCC) documented in this encounter Care Teams Actuarial Director Relationship Specialty Start Date End Date Elsewhere, Pcp PCP - General Family Medicine 03/25/21 documented as of this encounter
--- OUTSIDE RECORDS SUMMARY | 2022-05-22 16:01 | XMS_ITS | Encounter Summary ---
:1965 Author Organization [facility] Address [address] [place] [address] Care Team Providers Name Role Phone Elsewhere, Pcp Primary Care Provider Unavailable Reason for Referral Outpatient (Routine) - Closed Specialty Diagnoses / Referred By Referred To Cont act Procedures Contact Gastroenterology and Collin Trivedi [facility] Hepatology Chloe [place] [address] [place] [address] Referral ID Status Reason Start Date Expiration Date Visits Requ ested Visits Authorized [id number] Closed 04/24/2021 04/24/2022 1 1 MRI/CAT/PET Scan (Routine) - Closed Specialty Diagnoses / Procedures Referred By Contact Refer red To Contact Radiology Diagnoses Hepatitis Autoimmune (HCC) Collin Trivedi M.D. [facility] Procedures MR Liver Elastogram Only without IV Contrast [address] [place], [place] [phone] Referral ID Status Reason Start Date Expiration Date Visits Requ ested Visits Authorized [id number] Closed 04/24/2021 04/24/2022 1 1 Outpatient (Routine) - Closed Specialty Diagnoses / Procedures Referred By Contact Refer red To Contact Diagnoses Cirrhosis Nonalcoholic (HCC) Collin Trivedi M.D. [facility] Procedures BMD Bone Density Spine Hips [address] [place], [place] [phone] Referral ID Status Reason Start Date Expiration Date Visits Requ ested Visits Authorized [id number] Closed 04/19/2021 04/19/2022 1 1 Outpatient (Routine) - Closed Specialty Diagnoses / Procedures Referred By Contact Refer red To Contact Diagnoses Pain Abdominal Wall Collin Trivedi M.D. [facility] Procedures PMR Trigger Point Injection (Procedure Only) [address] [place] [phone] Referral ID Status Reason Start Date Expiration Date Visits Requ ested Visits Authorized [id number] Closed 04/19/2021 04/19/2022 1 1 Reason for Visit Outpatient (Routine) - Closed Specialty Diagnoses / Referred By Referred To Cont act Procedures Contact Gastroenterology and James Joseph Rocheste r [facility] Hepatology Chloe [address] [place] [address] Referral ID Status Reason Start Date Expiration Date Visits Requ ested Visits Authorized [id number] Closed 10/19/2020 10/19/2021 1 1 Encounter Details Date Type Department Care Team Description 04/19/2021 Office Visit Division of Shikha, Pain Abdominal Wall (Primary Dx); Gastroenterology in [place] [facility] Cirrhosis Nonalcoholic (HCC); [place], [place] [address] [facility] Hepatitis Autoimmune (HCC) [address] [place] [phone] Social History Tobacco Use Types Packs/Day Years [...] er 09/23/2021 How often do you attend rastafari or pentecostalism services? Never 09/23/2021 Do you belong to any clubs or organizations such as No 09/23/2021 rastafari groups, unions, fraternal or athletic groups, or [...] documented as of this encounter Progress Notes Collin Trivedi M.D. - 04/19/2021 4:00 PM CDT GASTROENTEROLOGY & HEPATOBILIARY PROGRESS NOTE Date/Time: 04/19/2021 5:06 PM CDT Patient Name: Vee Danielson : 1965 Reason for visit: 1. Follow-up of autoimmune hepatitis 2. Daily loose stools and intermittent LUQ abdominal pain medical record consultant: Dr. Guanako Armenta Subjective: # History of autoimmune hepatitis, inactive # Question of liver cirrhosis (MELD-Na 8, CTP-A) Ms. Danielson was diagnosed with auto-immune hepatitis in 2011 after an initial diagnosis of SLE. 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 Overall, shewas felt to have autoimmune hepatitis. She was treated with high-dose steroids with significant improvement in her clinical picture followed by azathioprine. Her TPMT levels were within normal range. Her liver tests (bilirubin, transaminases, alkaline phosphatase) have all remained within normal limits since the initial improvement with treatment in 2012. It is unclear whether she truly has cirrhosis (no histological diagnosis, chronic mild thrombocytopenia but confounded by azathioprine treatment, no decompensation events). No esophageal varices were identified on EGD in 12/2018. No HCC on ultrasound today. No concern for encephalopathy today. No pruritus, GI bleeding, volume overload, or interval jaundice. # Loose stools # Fecal urgency Ms. Danielson has a longstanding history of loose stools which became worse after her cholecystectomy in 2014. She had a colonoscopy in 2018 that was macroscopically normal. Random biopsies did not show evidence of microscopic colitis. Currently she is endorsing at least 1 loose to watery bowel movements per day with a feeling of rectal urgency. She denies any weight loss or blood in her stools. # Abdominal wall pain Ms. Danielson endorses that she has intermittent pain in the left upper quadrant that will be worse with sneezing or certain movements. She has had a LUQ ultrasound and CT abdomen pelvis done for this inrecent months that did not identify any cause of her pain. Current Medications: - azathioprine 200 mg daily - Ca-Vit D3 daily - hydroxychloroquine 200 mg daily (increase to 400 mg after 2 weeks) - lisinopril-HCTZ 20-25 daily - omeprazole 40 mg daily - oxybutynin 10 mg daily - pravastatin 40 mg daily Objective: Physical Exam: General: Sitting comfortably in chair, in no acute distress. Appears well nourished and well-kempt. Affect and mood appropriate. Lung: Breathing comfortably on room air. Abdomen: Soft, non-distended. No masses palpated. Localized tenderness to palpation in the LUQ that increases with abdominal wall tensing (Carnett positive) Extremities: no peripheral edema Neuro: AAO x 3. No asterixis. Imaging: * Abdomen US (04/19/2021): 1. Slightly coarse hepatic parenchymal echotexture consistent with chronic parenchymal disease. Stable hemangioma in the right lobe of the liver. Antegrade flow in the main portal vein. Ultrasound LI RADS 1A. 2. Splenomegaly. 3. Parenchymal thinning of both kidneys. * CT abdomen pelvis with contrast (02/27/2021): Stable suspected hemangioma in the posterior right hepatic lobe. Otherwise normal liver. Cholecystectomy. Normal pancreas. Stable spleen upper limits of normal in size. Normal adrenal glands, kidneys. Mild calcified atherosclerotic plaque. Unobstructed bowel. No ascites. Tiny hiatal hernia. Fibroid in the left uterine fundus. No lymphadenopathy. No nephroureterolithiasis. Suspected urethral diverticulum. Tiny fat-containing umbilical hernia. No fat stranding to localize a source of abdominal pain. IMPRESSION: No explanation for abdominal pain. Labs: MELD-Na score: 8 at 04/19/2021 7:05 AM MELD score: 8 at 04/19/2021 7:05 AM Calculated from: Serum Creatinine: 1.1 mg/dL at 04/19/2021 7:05 AM Serum Sodium: 139 mmol/L (Using max of 137 mmol/L) at 04/19/2021 7:05 AM Total Bilirubin: 0.6 mg/dL (Using min of 1 mg/dL) at 04/19/2021 7:05 AM INR(ratio): 1.1 at 04/19/2021 7:05 AM Age: 55 years Assessment and Plan: Ms. Danielson is a very pleasant 55-year old woman who presents for follow-up visit regarding her autoimmune hepatitis and history of loose stools with abdominal pain. # History of autoimmune hepatitis, inactive # Question of liver cirrhosis (MELD-Na 8, CTP-A) # Hepatic hemangioma, 3 cm, right lobe of liver, asymptomatic Ms. Danielson is doing well from a hepatology standpoint. Her MELD-Na score is stable (slightly decreased due to improvement in creatinine). She does not have any evidence of encephalopathy, hyponatremia, or ascites. US today did not show HCC. It is unclear whether or not she truly has cirrhosis. This distinction is relevant as it impacts theneed for HCC and varices screening. Therefore we will obtain an MR elastography in 6 months. If thisshows cirrhosis, we will continue 6-monthly HCC screening and repeat varices screening. If there is no evidence of cirrhosis, we would only need to do yearly follow-up. Given her history of steroid use, autoimmune illness, and previous report of osteopenia, we will repeat DEXA scan. # Systemic lupus erythematosus Followed by rheumatology, currently on azathioprine. She will be adding on hydroxychloroquine as perrheumatology visit today. # Loose stools # Fecal urgency Ongoing issues with loose stools and more importantly fecal urgency with effect on social life. Willtrial bile acid binder (colestipol 1g BID). If she has ongoing fecal urgency or loose stools despitetrialing this for 2 weeks, I would recommend an anorectal manometry +/- a 1-week pelvic floor program for fecal incontinence. # Abdominal wall pain The intermittent, positional LUQ abdominal pain is Carnett positive and therefore likely related to her abdominal wall. I have ordered trigger point injection which can be reordered every 3 months if it improves her pain. This patient will be staffed with Dr. Armenta. Electronically signed by: Collin Trivedi M.D. 04/19/21 5:06 PM CDT documented in this encounter Plan of Treatment Upcoming Encounters Date Type Specialty Care Team Description 07/08/2022 Appointment Laboratory Medicine Pedro Donnelly, PER DIEM PHYSICAL THERAPIST, C.N.P. [address] [place] [phone] (Claudia vera) 07/08/2022 Office Visit Gastroenterology and Collin Trivedi Hepatology Chloe [address] [place] [phone] (Claudia vera) Scheduled Referrals Name Type Priority Associated Order Schedule Diagnoses Gastroenterology and Outpatient Routine Expecte d: Hepatology office visit Referral 04/07 (clinic) (Approximate), Expires: 04/24/2024 documented as of this encounter Results Comprehensive Metabolic Panel (05/08/2022 9:40 AM CDT) [...] Organization Address City/State/ZIP Code Phon e Number [facility]- [address] [place] [address] [place] [address] System in [place] [address] Prothrombin Time (PT) (05/08/2022 9:40 AM CDT) [...] Organization Address City/State/ZIP Code Phon e Number [facility]- [address] [place] [address] [place] [address] System in [place] [address] [facility] MR Liver Elastogram Only without IV Contrast (11/11/2021 7:57 AM FLOAT BUILDER) Anatomical Region Laterality Modality Abdomen, Abdominal RST LOS, Abdominal ARZ LOS, N/A Magnetic Resonance Abdominal FLA LOS Specimen (Source) Anatomical Collection Method Collection Time Re ceived Time Location / / Volume Laterality 11/11/2021 9:25 AM FLOAT BUILDER Impressions 11/11/2021 12:43 PM FLOAT BUILDER 1. ??Normal liver stiffness. 2. ??Stable mild [...] in other organs. Narrative 11/11/2021 12:43 PM FLOAT BUILDER EXAM: ??MR LIVER ELASTOGRAM ONLY WITHOUT IV [...] of hepatic parenchymal stiffness. COMPARISON: Abdominal ultrasound ; CT abdomen/pelvis 02/27/2021. FINDINGS: Smooth liver contour. [...] evaluation of lesions in other organs. Collin Trivedi M.D. IMG MRI PROCEDURES MO INJ TRIGGER PNT<=2 MUS, MO US GUIDE PLC NDL (05/14/2021 9:17 AM [...] apparent complications ?? ADDITIONAL PROCEDURE COMMENTS Injection lead quality control technician/nurse was present f or assistance during the procedure. Additional instructions: Avoid submersio n of procedure site for 24 hours. Any medication remaining in a vial was d iscarded. Medication wasted detail (if any): PPE used (information for possible conta ct monitoring): Provider was wearing a mask and eye protection throug hout entire session, as was injection assistant clinical director any resident present . Patient was wearing [...] Code Phon e Number MMODAL MMODAL NA BMD Bone Density Spine Hips (05/14/2021 8:52 [...] Mineral Density (BMD) analysis perf ormed on redIT with serial number [id number]. COMPARISON: Serial Comparisons Left Total Hip results: [...] including images and graphs, is available in Liquid State. In the absence of other causes of [...] of fracture is: FRAX Risk Factors: Glucocorticoids (Small Business Consultant quan), Secondary Osteoporosis FRAX (10 yr probability) [...] Mineral Density (BMD) analysis perf ormed on redIT with serial number [id number]. COMPARISON: Serial Comparisons Left Total Hip results: [...] including images and graphs, is available in Liquid State. In the absence of other causes of [...] image stored in the BMD study in [employer] OnlineE[employer]asteBook), the calculated ten year probability of fracture is: FRAX Risk Factors: Glucocorticoids (Small Business Consultant quan), Secondary Osteoporosis FRAX (10 yr probability) adjusted for TB S: Major Osteoporotic Fracture: 8.5 % Hip Fracture: 0.5 % Degenerative changes are present which m ay spuriously elevate the spine BMD measurement. IMPRESSION: Low bone density (Osteopenia) DualFemur (region: Neck Right) Collin GRACIA DXA PROCEDURES documented in this encounter Visit Diagnoses Diagnosis Pain Abdominal Wall - Primary Cirrhosis Nonalcoholic (HCC) Hepatitis Autoimmune (HCC) Cirrhosis Nonalcoholic (HCC) Myalgia Hepatitis Autoimmune (HCC) documented in this encounter Care Teams Teacher Adventure Education Relationship Specialty Start Date End Date Elsewhere, Pcp PCP - General Family Medicine 03/25/21 documented as of this encounter
--- OUTSIDE RECORDS SUMMARY | 2022-05-22 16:01 | XMS_ITS | Encounter Summary ---
:1965 Author Organization [facility] Address [address] [place] [address] Care Team Providers Name Role Phone Elsewhere, Pcp Primary Care Provider Unavailable Encounter Details Date Type Department Care Team Description 03/25/2021 Clinical Communication Division of [facility], Landon Mosher, Rheumatology in [place], [place] [address] [place] [address] Social History Tobacco Use Types Packs/Day Years [...] How often do you attend orthodoxy or rastafarian services? Never 09/23/2021 Do you belong to [...] this encounter Miscellaneous Notes Telephone Encounter - Landon Bal M.D. - 03/25/2021 3:19 PM CDT I received a call from the Hematology fellow. The do not think the patient has lymphoproliferative disorder but she may have mild splenomegaly related perhaps some also this related to her lupus. The patient has gone off her CellCept altogether. I was reviewing notes I did not see a specific note saying that she should do so. At this point she has been off couple weeks. I would have the patient resume her CellCept if there is not a contraindication. I would have her start 500 mg once per day for 3 days then back to 500 twice per day for 3 days of 1000 in the morning and 500 in the evening for 3 days and then a 1000 twice per day which was the dose she was on when she saw our nurse practitioner last. Patient has a follow-up in Rheumatology in about 3 weeks. I discussed this with him fellow and he will discuss with the patient. documented in this encounter Plan of Treatment Upcoming Encounters Date Type Specialty Care Team Description 07/08/2022 Appointment Laboratory Medicine Pedro Donnelly APRN, C.N.P. [address] [place] [phone] (Claudia vera) 07/08/2022 Office Visit Gastroenterology and Collin Trivedi Hepatology Chloe [address] [place] [phone] (Claudia vera) documented as of this encounter Visit Diagnoses Not on filedocumented in this encounter Care Teams Shoe Treer Relationship Specialty Start Date End Date Elsewhere, Pcp PCP - General Family Medicine 03/25/21 documented as of this encounter
--- OUTSIDE RECORDS SUMMARY | 2022-05-22 16:01 | XMS_ITS | Encounter Summary ---
:1965 Author Organization [facility] Address [address] [place] [address] Care Team Providers Name Role Phone Elsewhere, Pcp Primary Care Provider Unavailable Encounter Details Date Type Department Care Team Description 04/18/2021 Orders Only Division of Dalia Ghotra Lupus Erythema tosus Rheumatology in [facility] (Primary Dx) [place], [place] [address] [facility] [address] [place] [phone] Social History Tobacco Use Types Packs/Day Years [...] How often do you attend rastafari or oriental orthodox services? Never 09/23/2021 Do [...] Medicine Pedro Donnelly, ANTHONY, C.N.P. [address] [place] [address] (Wo rk) 07/08/2022 Office Visit Gastroenterology and Collin Trivedi, Hepatology [place] [address] [place] [address] (Wo rk) documented as of this encounter Results Miscellaneous Research, B (04/19/2021 7:04 AM CDT) athologist Signature Number of 5 04/19/2021 [facility] Specimens 7:04 AM CDT Specimen Anatomical Collection Method Collection Time Receive d Time (Source) Location / / Volume Laterality Varies (Blood, 04/19/2021 7:04 AM 021 7:04 Venous) CDT AM CDT Magdy Ni M.D. LAB RESEARCH NO RESULT ANDREA HERNÁNDEZ Performing Organization Address City/State/ZIP Code Phon e Number [facility] - [address] [place] [address] [address] [place] [address] [address] documented in this encounter Visit Diagnoses Diagnosis Lupus Erythematosus - Primary documented in this encounter Care Teams Health And Wellness Coach Relationship Specialty Start Date End Date Elsewhere, Pcp PCP - General Family Medicine 03/25/21 documented as of this encounter
--- OUTSIDE RECORDS SUMMARY | 2022-05-22 16:01 | XMS_ITS | Encounter Summary ---
:1965 Author Organization [facility] Address [address] [place] [address] Care Team Providers Name Role Phone Elsewhere, Pcp Primary Care Provider Unavailable Encounter Details Date Type Department Care Team Description 04/23/2021 Orders Only [facility] PCP [facility] Sa erasmo Villalobos M.D. [address] [place], [place] [phone] (Wo rk) Social History Tobacco Use Types [...] er 09/23/2021 How often do you attend denominational or sabianist services? Never 09/23/2021 Do you belong to any clubs or organizations such as No 09/23/2021 denominational groups, unions, fraternal or athletic groups, or [...] Description 07/08/2022 Appointment Laboratory Medicine Pedro Donnelly, TEACHERS' ASSISTANT, C.N.P. [address] [place] [phone] (Claudia vera) 07/08/2022 Office Visit Gastroenterology and Collin Trivedi, Hepatology M.DSarina [address] [place] [phone] (Claudia rk) documented as of this encounter Visit Diagnoses Not on filedocumented in this encounter Care Teams Legal Support Analyst Relationship Specialty Start Date End Date Elsewhere, Pcp PCP - General Family Medicine 03/25/21 documented as of this encounter
--- OUTSIDE RECORDS SUMMARY | 2022-05-22 16:01 | XMS_ITS | Encounter Summary ---
:1965 Author Organization [facility] Address [address] [place] [address] Care Team Providers Name Role Phone Elsewhere, Pcp Primary Care Provider Unavailable Reason for Referral Outpatient (Routine) - Closed Specialty Diagnoses / Procedures Referred By Contact Refer red To Contact Rheumatology Diagnoses Lupus Systemic Erythematosus (HCC) Pedro Donnelly APRN, [facility] C.N.P. 200 [place] [phone] Referral ID Status Reason Start Date Expiration Date Visits Requ ested Visits Authorized [id number] Closed 04/19/2021 04/19/2022 1 1 Scheduling Instructions Consult slot, has been several years. Reason for Visit Outpatient (Routine) - Closed Specialty Diagnoses / Procedures Referred By Contact Refer red To Contact Rheumatology Pedro Donnelly APR N, C.N.P. [facility] [address] [place] [phone] Referral ID Status Reason Start Date Expiration Date Visits Requ ested Visits Authorized [id number] Closed 01/31/2021 01/31/2022 1 1 Encounter Details Date Type Department Care Team Description 04/19/2021 Office Visit Division of Pedro Donnelly Lupus Systemic Erythematosus (HCC) (Primary Dx); Rheumatology in ANTHONY Rojas, C.N.P. Hepatitis Autoimmune (HCC); [place], [place] 200 [facility] Thrombocytopenia (HCC); 200 [place], [place] Anemia; [place] [address] High Risk Medication [phone] Social History Tobacco Use Types Packs/Day Years [...] How often do you attend mandaeism or taoism services? Never 09/23/2021 Do you belong to [...] Sign Reading Time Taken Comments Blood Pressure 116/72 04/19/2021 10:27 AM CDT Pulse 82 04/19/2021 10:27 AM CDT Temperature 36.8 ??C (98.2 ??F) 04/19/2021 10:27 AM CDT Respiratory Rate - - Oxygen Saturation - - Inhaled Oxygen Concentration - - Weight 104 kg (229 lb 8 oz) 04/19/2021 10:27 AM CDT Height - - Body Mass Index 36.53 03/25/2021 9:53 AM CDT documented in this encounter Progress Notes Pedro Donnelly APRN, [employer]. - 04/19/2021 10:30 AM CDT SUBJECTIVE CHIEF COMPLAINT / REASON FOR VISIT Vee Danielson is a 55 y.o. female who presents as an established [...] included positive CHAPARRITA, positive SSA, and positive Cisneros antibody.She did have positive beta two IgM, [...] thrombotic event. She returns in follow-up today. I had seen her in February at which time she had identified a number of concerns and blood studies had suggested that her lupus may be more active again. He she did undergo ultrasound of her abdomen it was found to have mild splenomegaly. She was referred by Dr. Bal to Hematology. In reviewing their notes they felt that the mild splenomegaly was likely the result of active lupus and recommended increased treatment of her lupus. Unfortunately she had developed a rash while on CellCept. Thankfully she message us and reported that she had perceived benefit from the azathioprine which she did not realize until she had been off of it for some time. She did resume that since her last visit here in reports today that she is tolerating that well. Clinical symptoms she is concerned about today are episodes of incontinence. She has been working with a physical therapist for kegel exercises. She has seen urologist in the past and is interested in addressing this further. She continues to experience left upper quadrant abdominal pain. She reports that it comes in episodes it is not constant at this point in time. She is not reporting any changes to her bowel habits today. Lastly she expresses frustration regarding her care in Rheumatology. We discussed the benefits and drawbacks of the electronic oral as well as her disease history. Previous Reports Reviewed:historical medical records, lab reports and office notes The following portions of the patient's history were reviewed and updated as appropriate: allergies,current medications, medical history and problem list. REVIEW OF SYSTEMS Pertinent positives and negatives as documented in the above history of present illness. Constitutional: Positive for fatigue, fever and night sweats. Skin: Positive for skin rash. Gastrointestinal: Positive for abdominal (belly) pain or cramping, blood in stool, constipation, diarrhea, heartburn and nausea. Genitourinary: Positive for incontinence, urgency and frequent urination. Musculoskeletal: Positive for back pain and muscle pain/stiffness. Neurological: Positive for numbness [...] upper quadrant, more mild than previous). Musculoskeletal General: Edema (Bilateral lower extremities) present. Cervical back: Normal range of motion. Comments: [...] Laboratory studies completed prior to today's visit were reviewed with the patient and her sister in great detail. She is more anemic with hemoglobin at 9.0. Her white blood cell count has droppedat 3.1. Platelets have improved to current 161. Sedimentation rate elevated at 124. CRP is within normal parameters at 7.2. Sodium, potassium normal. Creatinine is slightly elevated but improved at 1.10. Liver function testing including ALT, AST, alkaline phosphatase all within normal parameters. Urinalysis was reviewed and did not show evidence of hematuria or increased proteinuria. There is evidence of leukocyte esterase had mild increase in white blood cells which were discussed with the patient. Disease Activity SLEDAI ASSESSMENT / PLAN #1 Lupus Systemic Erythematosus (HCC) #2 Hepatitis Autoimmune (HCC) #3 Thrombocytopenia (HCC) #4 Anemia I discussed the rheumatic disease process with the patient and her sister in great detail today. We discussed the fact that she has had autoimmune hepatitis which we have been monitoring for since her initial diagnosis in 2011 but that clearly has not suggested that she has had a repeat flare of her hepatitis since the initial flare. She was noted to have fibrosis which may be a result of that initial flare, there may also be a component of fatty liver disease. We discussed this limits our therapy options for her treatment of her disease process. She is comfortable continuing with the azathioprine which she perceives to be tolerating well. It may be helping to improve her platelet level, but platelets are also responsive to inflammation and her sedimentation rate remains quite elevated. We will plan to continue with azathioprine which she has just recently started and add hydroxychloroquine which was suggested by Hematology. She had reported weakness in the past with hydroxychloroquine so we will monitor for that carefully. She is requesting to see Dr. Bal back himself which I will try to order for three months. We discussed all possible manifestations of lupus in which organ systems have been involved in her specific case. She continues to be anemic and leukopenic which are likely the result of her lupus. We discussed that the findings of the urine study as well as the urinary frequency and incontinence are likely not related or directly related to her lupus. She will need to follow up with Urology. We discussed the rationale for involving our colleagues in Gastroenterology for furtherevaluation. She indicated she was agreeable with this plan. #5 High Risk Medication She will need to continue with lab monitoring every two months well azathioprine is being used. I will try to coordinate her eye exam with her return appointment to Rheumatology. PATIENT EDUCATION Ready to learn, no apparent learning barriers were identified; learning preferences include listening. Explained diagnosis and treatment plan; patient expressed understanding of the content. documented in this encounter Plan of Treatment Upcoming Encounters Date Type Specialty Care Team Description 07/08/2022 Appointment Laboratory Medicine Pedro Donnelly APRN, C.N.P. [address] [place] [phone] (Wo rk) 07/08/2022 Office Visit Gastroenterology and Collin Trivedi Hepatology Chloe [address] [place] [phone] (Claudia rk) Scheduled Referrals Name Type Priority Associated Diagnoses Order S chedule Rheumatology - Outpatient Routine Lupus Systemic Expected: Systematic Lupus Referral Erythematosus (HCC) 07/08 Erythematosus consult (Appro ximate), (clinic) Expires: 04/19/2024 documented as of this encounter Results (ABNORMAL) Complement, Total (09/23/2021 2:43 PM ADZ WORKER) athologist [facility] Complement, 25 (L) 30 - 75 09/25/2021 [facility] Total, S U/mL 5:07 PM ADZ WORKER Specimen Anatomical Collection Method Collection Time Receive d Time (Source) Location / / Volume Laterality Blood (Blood, 09/23/2021 2:43 PM 09/25/19 22 3:06 Venous) ADZ WORKER PM ADZ WORKER Pedro Donnelly APRN, C.N.P. LAB BLOOD NON ADD-ON Performing Organization Address City/State/ZIP Code Phon e Number [facility] [address] [place] [address] [facility] Critical access [place] [address] Laboratory Medicine and Pathology [address] [place] (ABNORMAL) Complement C4 (09/23/2021 2:43 PM ADZ WORKER) athologist Signature Complement C4, S 6 (L) 14 - 40 09/24/2021 [facility] mg/dL 11:06 AM ADZ WORKER Specimen Anatomical Collection Method Collection Time Receive d Time (Source) Location / / Volume Laterality Blood (Blood, 09/23/2021 2:43 PM 09/24/19 22 7:55 Venous) ADZ WORKER AM ADZ WORKER Robert Kumar APRNNSarinaPSarina LAB BLOOD ADD-ON Performing Organization Address City/State/ZIP Code Phon e Number [facility] [address] [place], [place] [address] [facility] Critical [place] [address] Laboratory Medicine and Pathology [address] [place] [address] Dr. CACERES Complement C3 (09/23/2021 2:43 PM ADZ WORKER) athologist Signature Complement C3, S 91 75 - 175 09/24/2021 [facility] mg/dL 10:36 AM ADZ WORKER Specimen Anatomical Collection Method Collection Time Receive d Time (Source) Location / / Volume Laterality Blood (Blood, 09/23/2021 2:43 PM 09/24/19 22 7:55 Venous) ADZ WORKER AM ADZ WORKER Robert Kumar APRNNGenny LAB BLOOD ADD-ON Performing Organization Address City/[facility]/ZIP Code Phon e Number [facility] [address] [place], [place] [address] [facility] [place] [address] Laboratory Medicine and Pathology [address] [place] [address] Dr. CACERES DNA Double-Stranded (dsDNA) Antibodies, IgG (09/23/2021 2:43 PM ADZ WORKER) athologist Signature DNA <12.3 <30.0 09/24/2021 [facility] Double-Stranded (Negative) 3:30 PM ADZ WORKER Ab, IgG, S IU/mL Specimen Anatomical Collection Method Collection Time Receive d Time (Source) Location / / Volume Laterality Blood (Blood, 09/23/2021 2:43 PM 09/24/19 22 7:02 Venous) ADZ WORKER AM ADZ WORKER Robert Kumar APRNN.PSarina LAB BLOOD ADD-ON Performing Organization Address City/State/ZIP Code Phon e Number [facility] [address] [place] [address] [facility] Critical access [place] [address] Laboratory Medicine and Pathology [address] [place] [address] Dr. CACERES (ABNORMAL) Antibody to Extractable Nuclear Antigen Evaluation (09/23/2021 2:43 PM ADZ WORKER) P athologist Signature SS-A/Ro Ab, >8.0 (H) <1.0 09/24/2021 [facility] IgG, S (Negative) 12:20 PM ADZ WORKER U Comment: Interpretation: Positive (>=1.0 ) SS-B/La Ab, IgG, S <0.2 <1.0 (Negative) U 09/24/2021 12 :20 PM ADZ WORKER [facility] Sm Ab, IgG, S 0.4 <1.0 (Negative) U 09/24/2021 12:20 P M ADZ WORKER [facility] CREDIT CONTROL OFFICER Ab, IgG, S <0.2 <1.0 (Negative) U 09/24/2021 12:20 PM ADZ WORKER [facility] Scl 70 Ab, IgG, S 0.2 <1.0 (Negative) U 09/24/2021 12: 20 PM ADZ WORKER [facility] Miladis 1 Ab, IgG, S <0.2 <1.0 (Negative) U 09/24/2021 12:20 PM ADZ WORKER [facility] Specimen Anatomical Collection Method Collection Time Receive d Time (Source) Location / / Volume Laterality Blood (Blood, 09/23/2021 2:43 PM 09/24/19 7:07 Venous) ADZ WORKER AM ADZ WORKER Pedro Donnelly APRN C.N.P. LAB BLOOD ADD-ON Performing Organization Address City/State/ZIP Code Phon e Number [facility] [address] [place], [place] [address] Critical [place] [address] Laboratory Medicine and Pathology [address] [place] (ABNORMAL) Antinuclear Antibodies, HEp-2 Substrate, IgG, Serum (09/23/2021 2:43 PM ADZ WORKER) Patholo gist Method Time Signature Antinuclear Ab, Positive <1:80 09/24/2021 [facility] HEp-2 1:640 (A) (Negative 2:42 PM ADZ WORKER Substrate, S ) Comment: ----ADDITIONAL INFORMATION---- Method: Immunofluorescence using HEp-2 c ellular substrate. CHAPARRITA Titer: 1:640 09/24/2021 2:42 PM ADZ WORKER [facility] CHAPARRITA Pattern: Speckled 09/24/2021 2:42 PM ADZ WORKER [facility] Specimen Anatomical Collection Method Collection Time Receive d Time (Source) Location / / Volume Laterality Blood (Blood, 09/23/2021 2:43 PM 09/24/19 7:07 Venous) ADZ WORKER AM ADZ WORKER Robert uKmar APRNN.P. LAB BLOOD ADD-ON Performing Organization Address City/[facility]/ZIP Code Phon e Number [facility] [address] [place], [place] [address] [facility] Critical access [place] [address] Laboratory Medicine and Pathology [address] [place] (ABNORMAL) Creatinine with Estimated GFR (09/23/2021 2:43 PM ADZ WORKER) Analysis Performed At Patho logist Time Signature Creatinine 1.22 (H) 0.59 - 09/23/2021 DTL 1.04 mg/dL 3:38 PM ADZ WORKER eGFR-Non 49 (L) >=60 09/23/2021 DTL Black/ mL/min/BSA 3:38 PM ADZ WORKER Cypriot Comment: ----ADDITIONAL INFORMATION---- Estimated GFR calculated using the 2009 CKD_EPI creatinine equation. eGFR-Black/ 57 (L) >=60 mL/min/BSA 2021 3:38 PM ADZ WORKER DTL Comment: ----ADDITIONAL INFORMATION---- Estimated GFR calculated using the 2009 CKD_EPI creatinine equation. Specimen Anatomical Collection Method Collection Time Receive d Time (Source) Location / / Volume Laterality Blood (Blood, 09/23/2021 2:43 PM 09/23/19 3:19 Venous) ADZ WORKER PM ADZ WORKER Apolonia Kumar APRN.N.P. LAB BLOOD ADD-ON Performing Organization Address City/State/ZIP Code Phon e Number [facility] - [address] [place], [place] [address] [facility] [place] [address] Laboratories-[place] [facility] [place] [address] (ABNORMAL) Sedimentation Rate (09/23/2021 2:43 PM ADZ WORKER) Patholo gist Method Time Signature Sedimentation 108 (H) 2 - 22 09/23/2021 DTL Rate, B mm/h 4:06 PM ADZ WORKER Specimen Anatomical Collection Method Collection Time Receive d Time (Source) Location / / Volume Laterality Blood (Blood, 09/23/2021 2:43 PM 09/23/19 3:07 Venous) ADZ WORKER PM ADZ WORKER Apolonia Kumar APRN.N.P. LAB BLOOD ADD-ON Performing Organization Address City/[facility] Phon e Number [facility] - 200 [place], [place] [address] [facility] [place] [address] Laboratories-[address] (ABNORMAL) Urinalysis with Microscopic: Urine, Midstream (09/23/2021 1:58 PM ADZ WORKER) Analysis Performed At Patho logist Time Signature Source Midstream 09/23/2021 DTL 4:12 PM ADZ WORKER Color, U Yellow 09/23/2021 DTL 4:12 PM ADZ WORKER Clarity, U Clear 09/23/2021 DTL 4:12 PM ADZ WORKER Protein, U 30 (H) <26 mg/dL 09/23/2021 DTL 5:16 PM ADZ WORKER Protein/Osmola 0.46 (H) <0.42 09/23/2021 DTL lity ratio 5:16 PM ADZ WORKER Predicted 24 332 mg/24 h 09/23/2021 DTL Hr Protein 5:16 PM ADZ WORKER Predicted 82-1344 mg/24 h 09/23/2021 DTL Range 5:16 PM ADZ WORKER Specimen Anatomical Collection Method Collection Time Receive d Time (Source) Location / / Volume Laterality Urine (Urine, 09/23/2021 1:58 PM 09/23/19 4:12 Midstream) ADZ WORKER PM ADZ WORKER Pedro Donnelly APRN, Apolonia.N.P. LAB URINE ORDERABLES Performing Organization Address City/[facility] Phon e Number [facility] - 200 [place], [place] [address] [facility] [place] [address] Laboratories-[address] CRP (C-Reactive Protein) (07/18/2021 12:32 PM ADZ WORKER) P athologist Signature C-Reactive <3.0 <=8.0 mg/L 07/18/2021 [place] Protein (CRP), 4:17 PM ADZ WORKER P Specimen Anatomical Collection Method Collection Time Receive d Time (Source) Location / / Volume Laterality Blood (Blood, 07/18/2021 12:32 07/18/2021 3:36 Venous) PM ADZ WORKER PM ADZ WORKER Pedro Donnelly APRN, C.N.P. LAB BLOOD ADD-ON Performing Organization Address City/State/ZIP Code Phon e Number [facility]- [address] [place] [address] [place] [address] System in [place] [address] Fundus Photos - OU - Both Eyes (05/03/2021 9:10 AM CDT) Specimen (Source) Anatomical Location Collection Method / Collectio n Time Received Time / Laterality Volume Narrative OPHTHALMOLOGY IMAGING EXAM - 06/03/20 9:59 AM CDT Right Eye Fundus photo type obtained is Autofluore scence. Left Eye Fundus photo type obtained is Autofluore scence. Notes See note for results Pedro Donnelly APRN, C.N.P. OPHTH PHOTOGRAPHY Performing Organization Address City/[facility]/ZIP Code Phon e Number OPHTHALMOLOGY IMAGING EXAM Optical Coherence Tomography (OCT) - Macula/Retina - OU - Both Eyes (05/03/2021 9:10 AM CDT) Specimen (Source) Anatomical Location Collection Method / Collectio n Time Received Time / Laterality Volume Narrative OPHTHALMOLOGY IMAGING EXAM - 06/03/20 9:59 AM CDT Right Eye Reliability was good. OCT device used i.TV s Spectralis . Left Eye Reliability was good. OCT device used i.TV s Spectralis . Notes See note for results Pedro Donnelly APRN, C.N.P. OPHTH TOMOGRAPHY Performing Organization Address City/[facility]/ZIP Code Phon e Number OPHTHALMOLOGY IMAGING EXAM Automated VF - Extended - OU - Both Eyes (05/03/2021 8:29 AM CDT) Specimen (Source) Anatomical Location Collection Method / Collectio n Time Received Time / Laterality Volume Narrative OPHTHALMOLOGY IMAGING EXAM - 06/03/20 9:58 AM CDT Right Eye Automated visual field device used was Z eiss. Strategy was DWAYNE. Threshold was 24-2. Eyelid was untaped. Left Eye Automated visual field device used was Z eiss. Strategy was DWAYNE. Threshold was 24-2. Eyelid was untaped. Notes See note for results Robert Kumar APRNNSarinaPSarina OPHTH VISUAL FIELD Performing Organization Address City/State/ZIP Code Phon e Number OPHTHALMOLOGY IMAGING EXAM documented in this encounter Visit Diagnoses Diagnosis Lupus Systemic Erythematosus (HCC) - Afia vinh Hepatitis Autoimmune (HCC) Thrombocytopenia (HCC) Anemia High Risk Medication Lupus Systemic Erythematosus (HCC) High Risk Medication Lupus Systemic Erythematosus (HCC) High Risk Medication Lupus Systemic Erythematosus (HCC) High Risk Medication documented in this encounter Care Teams Dance Instructor Relationship Specialty Start Date End Date Elsewhere, Pcp PCP - General Family Medicine 03/25/21 documented as of this encounter
--- OUTSIDE RECORDS SUMMARY | 2022-05-22 16:01 | XMS_ITS | Encounter Summary ---
:1965 Author Organization [facility] Address [address] [place] [address] Care Team Providers Name Role Phone Elsewhere, Pcp Primary Care Provider Unavailable Reason for Visit Reason Comments Intake Assessment Encounter Details Date Type Department Care Team Description 04/18/2021 Clinical Communication Division of Pedro Donnelly ke Assessment Rheumatology in [place], [place] C.N.P. [address] [facility] [address] [place] [phone] Social History Tobacco Use Types Packs/Day Years [...] How often do you attend mandaeism or muslim services? Never 09/23/2021 Do you belong to [...] Description 07/08/2022 Appointment Laboratory Medicine Pedro Donnelly, AUTOMOTIVE VEHICLE INSPECTOR, C.N.P. [address] [place] [phone] (Claudia vera) 07/08/2022 Office Visit Gastroenterology and Collin Trivedi, Hepatology M.DSarina [address] [place] [phone] (Claudia vera) documented as of this encounter Visit Diagnoses Not on filedocumented in this encounter Care Teams Chemical Cell Changer Relationship Specialty Start Date End Date Elsewhere, Pcp PCP - General Family Medicine 03/25/21 documented as of this encounter
--- OUTSIDE RECORDS SUMMARY | 2022-05-22 16:01 | XMS_ITS | Encounter Summary ---
:1965 Author Organization [facility] Address [address] [place] [address] Care Team Providers Name Role Phone Elsewhere, Pcp Primary Care Provider Unavailable Encounter Details Date Type Department Care Team Description 03/25/2021 Hospital Encounter Department of [facility], Khushboo abdi; Laboratory Medicine James Calhoun Anemia; and Pathology, [address] [place] [address] Lupus Systemic Erythematosus (HCC) [facility], in [facility] [phone] [place] [phone] [place] [address] (Work) [place], [place] [phone] [phone] (Fax) [phone] Social History Tobacco Use Types Packs/Day Years [...] er 09/23/2021 How often do you attend latter day or orthodox services? Never 09/23/2021 Do you belong to any clubs or organizations such as No 09/23/2021 latter day groups, unions, fraternal or athletic groups, or [...] TIMES A DAY BEFORE BREAKFAST AND DINNER. azaTHIOprine (IMURAN) Take 4 tablets (200 360 [...] Description 07/08/2022 Appointment Laboratory Medicine Pedro Donnelly, MEDIA SENIOR RECRUITER, C.N.P. [address] [place] [phone] (Wo rk) 07/08/2022 Office Visit Gastroenterology and Collin Trivedi Hepatology MAyala [address] [place] [phone] (Wo rk) documented as of this encounter Procedures Procedure Name Priority Date/Time Associated Diagnosis Comme nts SPSMA RESULT Routine 03/25/2021 11:15 Lymphopenia Results for this AM CDT Anemia procedure are in Lupus Systemic the results Erythematosus (HCC) section. RETICULOCYTES, B Routine 03/25/2021 11:15 Lymphopenia Results for this AM CDT Anemia procedure are in Lupus Systemic the results Erythematosus (HCC) section. CBC WITH Routine 03/25/2021 11:15 Lymphopenia Results for this DIFFERENTIAL, B AM CDT Anemia procedure are in Lupus Systemic the results Erythematosus (HCC) section. DIRECT ANTIGLOBULIN Routine 03/25/2021 11:14 Resu lts for this TEST (POLYSPECIFIC) AM CDT procedur e are in the results section. HEPATIC FUNCTION Routine 03/25/2021 11:14 Lymphopenia Results for this PANEL, S AM CDT Anemia procedure are in Lupus Systemic the results Erythematosus (HCC) section. DIRECT ANTIGLOBULIN Routine 03/25/2021 11:14 Resu lts for this TEST (MONOSPECIFIC AM CDT procedure are in IGG), B the results section. DIRECT ANTIGLOBULIN Routine 03/25/2021 11:14 Resu lts for this TEST (MONOSPECIFIC AM CDT procedure are in C3), B the results section. IRON AND TOT Routine 03/25/2021 11:14 Lymphopenia Results for this IRON-BINDING AM CDT Anemia procedure are in CAPACITY, S/P Lupus Systemic the results Erythematosus (HCC) section. DIRECT ANTIGLOBULIN Routine 03/25/2021 11:14 Lymphopenia Results for this TEST (POLYSPECIFIC) AM CDT Anemia procedure are in Lupus Systemic the results Erythematosus (HCC) section. LACTATE DEHYDROGENASE Routine 03/25/2021 11:14 Lymphopen ia Results for this (LD), S AM CDT Anemia procedure are in Lupus Systemic the results Erythematosus (HCC) section. HAPTOGLOBIN, S Routine 03/25/2021 11:14 Lymphopenia Results for this AM CDT Anemia procedure are in Lupus Systemic the results Erythematosus (HCC) section. FERRITIN, S Routine 03/25/2021 11:14 Lymphopenia Results for this AM CDT Anemia procedure are in Lupus Systemic the results Erythematosus (HCC) section. documented in this encounter Results (ABNORMAL) Morphology Evaluation (Special Smear) (03/25/2021 11:15 AM CDT) P athologist Signature Neutrophilic Segs 70 50 - 75 % 03/25/2021 DHPM and Bands 1:29 PM CDT Lymphocytes 23 18 - 42 % 03/25/2021 DHPM 1:29 PM CDT Monocytes 4 2 - 11 % 03/25/2021 DHPM 1:29 PM CDT Eosinophils 1 1 - 3 % 03/25/2021 PM 1:29 PM CDT Basophils 1 0 - 2 % 03/25/2021 PM 1:29 PM CDT Myelocytes 1 (H) <0.5 % 03/25/2021 [facility] 1:29 PM CDT Manual Absolute 3.08 1.56 - 03/25/2021 [facility] Neutrophil Count 6.45 1:29 PM CDT [...] Reviewed by: Lyle 03/25/2021 1:29 PM CDT [facility] Specimen Anatomical Collection Method Collection Time Receive d Time (Source) Location / / Volume Laterality Blood (Blood, 03/25/2021 11:15 03/25/2021 Venous) AM CDT 11:41 AM CDT Himanshu Sierra M.D. LAB BLOOD ADD-ON Performing Organization Address City/State/ZIP Code Phon e Number [facility] - [address] [place], [place] [address] [place] [address] [facility] [address] (ABNORMAL) Reticulocytes (03/25/2021 11:15 AM CDT) Patholo gist Method Time Signature Reticulocytes, B 3.27 [...] City/State/ZIP Code Phon e Number [facility] - [address] [place] [address] [facility] [place] [address] [facility] [address] [facility] (ABNORMAL) CBC with Differential, Blood (03/25/2021 11:15 AM CDT) [facility] Method Time Signature Hemoglobin 9.7 (L) 11.6 [...] City/State/ZIP Code Phon e Number [facility] - [address] [facility] Direct Antiglobulin Test (C3) (03/25/2021 11:14 AM CDT) [facility] Method Time Signature Direct Positive 2+ Negative 03/25/2021 DTL Antiglobulin 2:38 PM CDT Test, Monospecific, C3 Specimen Anatomical Collection Method Collection Time Receive d Time (Source) Location / / Volume Laterality Blood 03/25/2021 11:14 03/25/2021 AM CDT 11:35 AM CDT Himanshu Sierra M.D. LAB BLOOD BANK TEST ORDERABL ES Performing Organization Address City/[facility]/ZIP Code Phon e Number [facility] - [address] Direct Antiglobulin Test (IgG) (03/25/2021 11:14 AM CDT) [facility] Method Time Signature Direct Positive 3+ Negative 03/25/2021 DTL Antiglobulin 2:37 PM CDT Test, Monospecific IgG Specimen Anatomical Collection Method Collection Time Receive d Time (Source) Location / / Volume Laterality Blood 03/25/2021 11:14 03/25/2021 AM CDT 11:35 AM CDT Himanshu Sierra M.D. LAB BLOOD BANK TEST ORDERABL ES Performing Organization Address City/State/ZIP Code Phon e Number [facility] - [address] [place] [address] [facility] DTL [place], [place] [address] [place] [address] Direct Antiglobulin Test (Polyspecific) (03/25/2021 11:14 AM CDT) [facility] Method Time Signature Direct Positive 3+ Negative 03/25/2021 DTL Antiglobulin 2:37 PM CDT Test, Polyspecific Specimen Anatomical Collection Method Collection Time Receive d Time (Source) Location / / Volume Laterality Blood 03/25/2021 11:14 03/25/2021 AM CDT 11:35 AM CDT Himanshu Sierra M.D. LAB BLOOD BANK TEST ORDERABL ES Performing Organization Address City/[facility] Phon e Number [facility] - 200 [place], [place] [address] [facility] [place] [address] [facility] 200 [facility] Hepatic Function Panel (03/25/2021 11:14 AM CDT) [facility] Method Time Signature Bilirubin, Total, S 0.6 [...] M.D. LAB BLOOD ADD-ON Performing Organization Address City/State/[facility] Phon e Number [facility] - [address] [address] [place] [address] [facility] (ABNORMAL) Iron and Total Iron-Binding Capacity (03/25/2021 [...] City/State/ZIP Code Phon e Number [facility] - [address] (ABNORMAL) Ferritin (03/25/2021 11:14 AM CDT) athologist Signature Ferritin, S 345 (H) 11 - 307 03/25/2021 DTL mcg/L 12:55 PM CDT Specimen Anatomical Collection Method Collection Time Receive d Time (Source) Location / / Volume Laterality Blood (Blood, 03/25/2021 11:14 03/25/2021 Venous) AM CDT 11:36 AM CDT Himanshu Sierra M.D. LAB BLOOD ADD-ON Performing Organization Address City/State/ZIP Code Phon e Number [facility] - [address] [place], [place] [address] [place] [address] LD (Lactate Dehydrogenase) (03/25/2021 11:14 AM CDT) [...] LAB BLOOD NON ADD-ON Performing Organization Address City/[facility]/ZIP Code Phon e Number [facility] - [address] [place], [place] [address] [facility] [place] [address] [facility] [address] Haptoglobin (03/25/2021 11:14 AM CDT) P athologist Signature Haptoglobin, S 132 30 - 200 03/25/2021 [facility] mg/dL 4:39 PM CDT Specimen (Source) Anatomical Collection Method Collection Time Re ceived Time Location / / Volume Laterality Blood (Blood, 03/25/2021 11:14 03/25/2021 3:52 Peripheral Draw) AM CDT PM CDT Himanshu Sierra M.D. LAB BLOOD ADD-ON Performing Organization Address City/[facility]/ZIP Code Phon e Number [facility] [address] CACERES [place], [place] [address] [facility] [place] [address] Laboratory Medicine and Pathology [address] [...] BANK TEST ORDERABL ES Performing Organization Address City/[facility]/ZIP Code Phon e Number [facility] - [address] [place], [place] [address] [facility] [place] [address] [place] [address] [address] [facility] documented in this encounter Visit Diagnoses Diagnosis Lymphopenia Anemia Lupus Systemic Erythematosus (HCC) documented in this encounter Care Teams Raker Buffing Wheel Relationship Specialty Start Date End Date Elsewhere, Pcp PCP - General Family Medicine 03/25/21 documented as of this encounter
--- OUTSIDE RECORDS SUMMARY | 2022-05-22 16:02 | XMS_ITS | Encounter Summary ---
:1965 Author Organization [facility] Address [address] [place] [address] Care Team Providers Name Role Phone Unavailable Primary Care Provider Unavailable Encounter Details Date Type Department Care Team Description 12/06/2020 Hospital Encounter Department of [facility] [place], Landon Baca on Therapy Laboratory Medicine Chloe Mosher Not in [address] [phone] Social History Tobacco Use Types Packs/Day Years [...] How often do you attend rastafari or alevism services? Never 09/23/2021 Do you [...] mg calcium- mouth daily. 800 unit tablet lisinopril-hydroCHLOROth Take 1 tablet by 0 iazide mouth daily. (PRINZIDE,ZESTORETIC) 20-25 mg per tablet mycophenolate (CELLCEPT) Take 1 tablet (500 180 tablet 0 08/202101/31/2021 500 mg tablet mg total) by mouth 2 (two) times a day. omeprazole (PriLOSEC) 40 Take 1 capsule (40 60 capsule 11 12/24/[address] capsule mg total) by mouth 2 (two) times a day before breakfast and dinner. pravastatin (PRAVACHOL) TAKE 1 TABLET BY 90 tablet 3 201909/03/2021 40 mg tablet MOUTH EVERY DAY predniSONE (DELTASONE) 5 Take 1 tablet (5 mg 90 tablet 1 03/25/2021 mg tablet total) by mouth 2 (two) times a day. X 1 month, then 1 per day valacyclovir HCl 0 12/07/2019 03/25/20 21 (VALACYCLOVIR ORAL) documented as of this encounter Plan of Treatment Upcoming Encounters Date Type Specialty Care Team Description 07/08/2022 Appointment Laboratory Medicine Pedro Donnelly, COORDINATOR OF GENETIC SERVICES, C.N.P. [address] [place] [phone] (Wo rk) 07/08/2022 Office Visit Gastroenterology and Collin Trivedi Hepatology M.DSarina [address] [place] [phone] (Wo rk) documented as of this encounter Procedures Procedure Name Priority Date/Time Associated Diagnosis Comme nts CBC WITH Routine 12/06/2020 10:02 Medication Therapy Resul ts for this DIFFERENTIAL, B AM CDT [facility] Not procedure a re in Anticoagulant the results section. documented in this encounter Results (ABNORMAL) CBC with Differential, Blood (12/06/2020 10:02 AM CDT) [facility] Method Time Signature Hemoglobin 11.6 11.6 - 12/06/2020 [facility] 15.0 g/dL 2:04 PM CDT Hematocrit 35.5 35.5 - 12/06/2020 [facility] 44.9 % 2:04 PM CDT Erythrocytes 3.94 3.92 - 12/06/2020 [facility] 5.13 2:04 PM CDT x10(12)/L MCV 90.1 78.2 - 12/06/2020 [facility] 97.9 fL 2:04 PM CDT RBC Distrib Width 16.0 12.2 - 12/06/2020 [facility] 16.1 % 2:04 PM CDT Platelet Count 132 (L) 157 - 371 12/06/2020 [facility] x10(9)/L 2:04 PM CDT Leukocytes 4.6 3.4 - 9.6 12/06/2020 [facility] x10(9)/L 2:04 PM CDT Neutrophils 3.55 1.56 - 12/06/2020 [facility] 6.45 2:04 PM CDT x10(9)/L Lymphocytes 0.64 (L) 0.95 - 12/06/2020 [facility] 3.07 2:04 PM CDT x10(9)/L Monocytes 0.36 0.26 - 12/06/2020 [facility] 0.81 2:04 PM CDT x10(9)/L Eosinophils 0.03 0.03 - 12/06/2020 [facility] 0.48 2:04 PM CDT x10(9)/L Basophils 0.01 0.01 - 12/06/2020 [facility] 0.08 2:04 PM CDT x10(9)/L Specimen Anatomical Collection Method Collection Time Receive d Time (Source) Location / / Volume Laterality Blood (Blood, 12/06/2020 10:02 12/06/2020 Venous) AM CDT 10:02 AM CDT Landon Bal M.D. 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
--- OUTSIDE RECORDS SUMMARY | 2022-05-22 16:02 | XMS_ITS | Encounter Summary ---
:1965 Author Organization [facility] Address [address] [place] [address] Care Team Providers Name Role Phone Unavailable Primary Care Provider Unavailable Reason for Visit Reason Comments Labs Only Encounter Details Date Type Department Care Team Description 12/07/2020 Documentation Division of Rheumatology Meg Guzmán, Labs Only in [facility] ki R.N. [address] [facility] [address] [place] [phone] [place], [place] [phone] Social History Tobacco Use Types Packs/Day Years [...] How often do you attend denominational or adventism services? Never 09/23/2021 Do you belong to [...] encounter Progress Notes Vesna Guzmán R.N. - 12/07/2020 8:46 AM CDT ASSESSMENT Rheumatology Monitoring Labs completed on 12/06/2020 for mycophenolate mofetil (Cellcept) monitoring were reviewed per provider order. All monitored labs are within order range. Labs reviewed: absolute neutrophil count, hemoglobin, leukocytes, platelets PLAN Patient to continue with current plan of care. Patient next due for monitoring labs in two weeks. documented in this encounter Plan of Treatment Upcoming Encounters Date Type Specialty Care Team Description 07/08/2022 Appointment Laboratory Medicine Pedro Donnelly, ANTHONY, C.N.P. [address] [place] [phone] (Claudia vera) 07/08/2022 Office Visit Gastroenterology and Collin Trivedi Hepatology MSarinaDSarina [address] [place] [phone] (Claudia rk) documented as of this encounter Results (ABNORMAL) CBC with Differential, Blood (12/24/2020 9:22 AM CDT) [facility] Method Time Signature Hemoglobin 11.6 11.6 - 12/24/2020 [facility] 15.0 g/dL 1:32 PM CDT Hematocrit 35.4 (L) 35.5 - 12/24/2020 [facility] 44.9 % 1:32 PM CDT Erythrocytes 3.97 3.92 - 12/24/2020 [facility] 5.13 1:32 PM CDT x10(12)/L MCV 89.2 78.2 - 12/24/2020 [facility] 97.9 fL 1:32 PM CDT RBC Distrib Width 15.2 12.2 - 12/24/2020 [facility] 16.1 % 1:32 PM CDT Platelet Count 135 (L) 157 - 371 12/24/2020 [facility] x10(9)/L 1:32 PM CDT Leukocytes 3.2 (L) 3.4 - 9.6 12/24/2020 [facility] x10(9)/L 1:32 PM CDT Neutrophils 2.33 1.56 - 12/24/2020 [facility] 6.45 1:32 PM CDT x10(9)/L Lymphocytes 0.55 (L) 0.95 - 12/24/2020 [facility] 3.07 1:32 PM CDT x10(9)/L Monocytes 0.30 0.26 - 12/24/2020 [facility] 0.81 1:32 PM CDT x10(9)/L Eosinophils 0.03 0.03 - 12/24/2020 OW[facility] 0.48 1:32 PM CDT x10(9)/L Basophils 0.02 0.01 - 12/24/2020 OW[facility] 0.08 1:32 PM CDT x10(9)/L Specimen Anatomical Collection Method Collection Time Receive d Time (Source) Location / / Volume Laterality Blood (Blood, 12/24/2020 9:22 AM 12/25/19 21 9:23 Venous) CDT AM CDT Landon Bal M.D. LAB BLOOD ADD-ON Performing Organization Address City/State/ZIP Code Phon e Number [facility]- [address] [place] [address] [facility] [place] [address] System in [place] [address] documented in this encounter Visit Diagnoses Diagnosis Medication Therapy Correction Not Anticoa gulant - Primary documented in this encounter
--- OUTSIDE RECORDS SUMMARY | 2022-05-22 16:02 | XMS_ITS | Encounter Summary ---
:1965 Author Organization [facility] Address 200 [place] [address] Care Team Providers Name Role Phone Unavailable Primary Care Provider Unavailable Encounter Details Date Type Department Care Team Description 02/13/2021 Hospital Encounter Department of Pedor Donnelly Lupus S ystemic Erythematosus (HCC); Laboratory R, TRUCK CRANE OPERATOR, Hepatitis Autoi mmune (HCC); Medicine and C.N.P. Thrombocytopenia (HCC); Pathology, [place] 200 [facility] Splenomegaly Not Elsewhere Classified Building, in [facility] [address] [place] [phone] 200 [facility] (Work) [place], [place] [phone] (Fax) [phone] Social History Tobacco Use Types Packs/Day Years [...] How often do you attend scientologist or tenriism services? Never 09/23/2021 Do you belong to [...] NE mycophenolate Take 2 tablets 360 tablet 0 01/31/2021 021 (CELLCEPT) 500 mg (1,000 mg total) by tablet mouth 2 (two) times a day. oxybutynin Take 10 mg by mouth 0 [...] Medicine Pedro Donnelly, ANTHONY, C.N.P. [address] [place] [phone] (Wo rk) 07/08/2022 Office Visit Gastroenterology and Collin Trivedi Hepatology Chloe [address] [place] [phone] (Wo rk) documented as of this encounter Procedures Procedure Name Priority Date/Time Associated Diagnosis Comme nts LEUKEMIA/LYMPHOMA Routine 02/13/2021 2:20 PM Lupus Systemic Re sults for this PHENOTYPE, B CDT Erythematosus (H CC) procedure are in Hepatitis Autoimmune the res ults (HCC) section. Thrombocytopenia (HCC) Splenomegaly Not Elsewhere Classified CBC WITH Routine 02/13/2021 2:20 PM Lupus Systemic Results for this DIFFERENTIAL, B CDT Erythematosus (HCC) proce dure are in the results section. documented in this encounter Results Leukemia/Lymphoma Immunophenotyping by Flow Cytometry, Blood (02/13/2021 2:20 PM CDT) Component Value Ref Test Analysis Performed Pathologis t Range Method Time At Signature LCMSB Result Performed 02/14/2021 DTL 10:29 AM CDT Final Peripheral blood, flow cytometric immunophenotypin02/14/2021 DTL Diagnosis: 10:29 AM Normal immunophenotyping results. ??No m onotypic B-cell population or increase CDT in blasts identified. Reviewed by: Rosalba Matthews M.D. Special WBC: ??3.6 x 10(9)/L 02/14/2021 DTL Studies: %Lymphs (CBC/automated differential): ??17% 10:29 AM #Lymphs (CBC/automated differential): ??0.6 x 10(9)/L CDT Results: Blasts: ??Not increased by CD45/side scatter and CD34. B-cells: ??No monotypic; normal expression pattern of CD19, CD10, surface kappa and lambda. T-cells/NK-cells: ??No aberrant phenotype by CD3 and CD16. Quality Assessment: ??Specimen received within validated starla delines. Microscopic A Ohhted-Vxipyk-iwanfgo slid e prepared from the flow cytometry specimen is 02/14/2021 DTL Description examined. ??No morphologic f eatures of acute leukemia or lymphoma are 10:29 AM identified. CDT Comment: ----ADDITIONAL INFORMATION---- This test was developed using an analyte specific reagent. Its performance characteristics were determined by [facility] in a manner consistent with CLIA requirements. This test has not bee n cleared or approved by the U.S. Food and Drug Administration. Specimen Anatomical Collection Method Collection Time Receive d Time (Source) Location / / Volume Laterality Blood (Blood, 02/13/2021 2:20 PM 02/14/20 21 2:51 Venous) CDT PM CDT Narrative This result has an attachment that is no t available. Pedro Donnelly APRN C.N.P. LAB GENETIC TESTING Performing Organization Address City/State/ZIP Code Phon e Number [facility] - [address] [place] [address] [place] [address] [facility] 200 [facility] (ABNORMAL) CBC with Differential, Blood (02/13/2021 2:20 PM CDT) [facility] Method Time Signature Hemoglobin 10.9 (L) 11.6 - 02/13/2021 DTL 15.0 g/dL 2:54 PM CDT Hematocrit 33.8 (L) 35.5 - 02/13/2021 DTL 44.9 % 2:54 PM CDT Erythrocytes 3.87 (L) 3.92 - 02/13/2021 DTL 5.13 2:54 PM CDT x10(12)/L MCV 87.3 78.2 - 02/13/2021 DTL 97.9 fL 2:54 PM CDT RBC Distrib Width 14.7 12.2 - 02/13/2021 DTL 16.1 % 2:54 PM CDT Platelet Count 157 157 - 371 02/13/2021 DTL x10(9)/L 2:54 PM CDT Leukocytes 4.5 3.4 - 9.6 02/13/2021 DTL x10(9)/L 2:54 PM CDT Neutrophils 3.25 1.56 - 02/13/2021 DTL 6.45 2:54 PM CDT x10(9)/L Lymphocytes 0.75 (L) 0.95 - 02/13/2021 DTL 3.07 2:54 PM CDT x10(9)/L Monocytes 0.35 0.26 - 02/13/2021 DTL 0.81 2:54 PM CDT x10(9)/L Eosinophils 0.09 0.03 - 02/13/2021 DTL 0.48 2:54 PM CDT x10(9)/L Basophils <0.03 0.01 - 02/13/2021 DTL 0.08 2:54 PM CDT x10(9)/L Specimen Anatomical Collection Method Collection Time Receive d Time (Source) Location / / Volume Laterality Blood (Blood, 02/13/2021 2:20 PM 02/14/20 21 2:42 Venous) CDT PM CDT Pedro Donnelly APRN, C.N.P. LAB BLOOD ADD-ON Performing Organization Address City/State/ZIP Code Phon e Number [facility] - [address] [place], [place] [address] [place] [address] [facility] [address] documented in this encounter Visit Diagnoses Diagnosis Lupus Systemic Erythematosus (HCC) Hepatitis Autoimmune (HCC) Thrombocytopenia (HCC) Splenomegaly Not Elsewhere Classified documented in this encounter
--- OUTSIDE RECORDS SUMMARY | 2022-05-22 16:02 | XMS_ITS | Encounter Summary ---
:1965 Author Organization [facility] Address [address] [place] [address] Care Team Providers Name Role Phone Unavailable Primary Care Provider Unavailable Reason for Visit Reason Comments Med Refill Encounter Details Date Type Department Care Team Description 11/27/2020 Refill Division of Gastroenterology in [place], Med Refill [place], [place] Chloe [address] [facility] [address] [place] [phone] [place], [place] [phone] (Wo rk) Social History Tobacco Use Types [...] How often do you attend hoahaoism or jewish services? Never 09/23/2021 Do you [...] place to sleep or slept in a assisted (including now)? Education Answer Date Recorded What is the highest level of school you have completed or 12 th grade 06/17/2019 the highest degree you have received? Sex Assigned at Date Recorded Female 03/09/2018 3:30 PM CDT documented as of this encounter Plan of Treatment Upcoming Encounters Date Type Specialty Care Team Description 07/08/2022 Appointment Laboratory Medicine Pedro Donnelly, AUTO BODY SERVICE MECHANIC, C.N.P. [address] [place] [phone] (Claudia rk) 07/08/2022 Office Visit Gastroenterology and Collin Trivedi Hepatology M.DSarina [address] [place] [phone] (Wo rk) documented as of this encounter Visit Diagnoses Not on filedocumented in this encounter
--- OUTSIDE RECORDS SUMMARY | 2022-05-22 16:02 | XMS_ITS | Encounter Summary ---
:1965 Author Organization [facility] Address [address] [place] [address] Care Team Providers Name Role Phone Unavailable Primary Care Provider Unavailable Reason for Visit Reason Comments Labs Only Encounter Details Date Type Department Care Team Description 02/15/2021 Documentation Division of Rheumatology in Mark Donnelly, Labs Only [place], [place] BUSINESS INFO CONSULTANT, C.N.P. [address] [facility] [address] [place] [phone] [place], [place] [phone] (Wo rk) Social History Tobacco Use Types [...] er 09/23/2021 How often do you attend confucianist or yarsanism services? Never 09/23/2021 Do you belong to any clubs or organizations such as No 09/23/2021 confucianist groups, unions, fraternal or athletic groups, or [...] encounter Progress Notes Matt Mireles R.N. - 02/15/2021 11:22 AM CDT CBC w/diff was reordered by provider. Labs already ordered for 04/08. Will send to provider to make aware. Pedro Donnelly APRN, C.N.P. - 02/15/2021 11:22 AM CDT I am not sure if I understand the inbasket. I am planning to see the patient back in early April which is the reason for the labs being we ordered at that time. Thank you, Pedro Pedro Donnelly APRN, C.N.P. - 02/15/2021 11:22 AM CDT No concerns. Thank you, Pedro documented in this encounter Plan of Treatment Upcoming Encounters Date Type Specialty Care Team Description 07/08/2022 Appointment Laboratory Medicine Pedro Donnelly APRN, C.N.P. [address] [place] [phone] (Claudia vera) 07/08/2022 Office Visit Gastroenterology and Collin Trivedi Hepatology Chloe [address] [place] [phone] (Claudia vera) documented as of this encounter Visit Diagnoses Not on filedocumented in this encounter
--- OUTSIDE RECORDS SUMMARY | 2022-05-22 16:02 | XMS_ITS | Encounter Summary ---
:1965 Author Organization [facility] Address [address] [place] [phone] Care Team Providers Name Role Phone Unavailable Primary Care Provider Unavailable Reason for Referral Outpatient (Routine) - Closed Specialty Diagnoses / Procedures Referred By Contact Refer red To Contact Rheumatology Pedro Donnelly APR N, C.N.P. [facility] [address] [place] [phone] Referral ID Status Reason Start Date Expiration Date Visits Requ ested Visits Authorized [id number] Closed 01/31/2021 01/31/2022 1 1 Reason for Visit Outpatient (Routine) - Closed Specialty Diagnoses / Procedures Referred By Contact Refer red To Contact Rheumatology Pedro Donnelly APR N, C.N.P. [address] [phone] Referral ID Status Reason Start Date Expiration Date Visits Requ ested Visits Authorized [id number] Closed 11/22/2020 11/22/2021 1 1 Encounter Details Date Type Department Care Team Description 01/31/2021 Office Visit Division of Pedro Donnelly Lupus Systemic Erythematosus (HCC) (Primary Dx); Rheumatology in ANTHONY Rojas, C.N.P. Hepatitis Autoimmune (HCC); [place], [place] 200 [facility] Thrombocytopenia (HCC); [address] [place], [place] Splenomegaly [place] [phone] Social History Tobacco Use Types Packs/Day Years [...] How often do you attend alevism or jainism services? Never 09/23/2021 Do you belong to [...] Sign Reading Time Taken Comments Blood Pressure 124/71 01/31/2021 12:45 PM CDT Pulse 85 01/31/2021 12:45 PM CDT Temperature 36.4 ??C (97.5 ??F) 01/31/2021 12:45 PM CDT Respiratory Rate - - Oxygen Saturation - - Inhaled Oxygen Concentration - - Weight 107 kg (236 lb 12.4 oz) 01/31/2021 12:45 PM CDT Height 164.2 cm (5' 4.65) 01/31/2021 12:45 PM CDT Body Mass Index 39.83 01/31/2021 12:45 PM CDT documented in this encounter Patient Instructions Patient InstructionsPedro Donnelly APRN, C.N.P. - 01/31/2021 1:00 PM CDT 1. I would recommend Citrucel or fiber supplement drink. 2. Benlysta (belimumab) would be a consideration moving forward. documented in this encounter Progress Notes Pedro Donnelly APRN, C.N.P. - 01/31/2021 1:00 PM CDT SUBJECTIVE CHIEF COMPLAINT / REASON FOR VISIT Vee Danielson is a 55 y.o. female who presents as an established patient for follow up of systemic lupus erythematosus. HISTORY OF PRESENT ILLNESS I had the pleasure of seeing Ms. Danielson in followup. She has been following with Dr. Bal for a diagnosis of systemic lupus erythematosus. 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 Therapy has included topical treatments, prednisone, Plaquenil (discontinued due to weakness), azathioprine (up to 200mg/day, lost efficacy), and CellCept (started 10/2020). She also has a known history of autoimmune hepatitis. She indicates today that she has had increase in abdominal pain particularly in the left upper quadrant. This has been much more problematic the past two weeks. This does become tender with deep breathing she is having difficulty sleeping at night and will get an upset stomach at times which she attributes to this new discomfort in the abdomen. She has been taking more omeprazole. She has noted more cramping in the abdomen as well. She does not report any recent changes to her bowel movements which she reports as being pasty. She does not report any bloody stools but has had some blood on the tissue paper and wonders if she has some hemorrhoids. This is not a new concern for her but the abdominal pain is a new concern. She continues to report other nonspecific symptoms including periodic fevers, skin rashes which she believes are consistent with previous lupus skin rashes involving the chest, arms, and forehead. She did have some sun exposure recently which could have contributed but she is wondering if the CellCeptis making her more prone to those. She reports intermittent mouth sores. She reports hair loss. Joint pain continues to be problematic but not as problematic as the abdominal pain she is describing above. She denies any chest pain or pain with taking a deep breath outside of the pain described above. She continues with CellCept 500 mg twice daily. She has not been taking the azathioprine. She did discontinue the prednisone as well. She reports some improvement of the nonspecific symptoms while on prednisone, no dramatic improvement in those symptoms. She is not reporting any lymphadenopathy today. She is not reporting any immediate side effects to this medication. She did have her COVID vaccines and does not report any ill affects toward those. Previous Reports Reviewed:historical medical records, lab reports [...] diarrhea, heartburn and nausea. Genitourinary: Positive for incontinence. Musculoskeletal: Positive for back pain and muscle [...] Abdominal Palpations: Abdomen is soft. There is mass (Percussion of the abdomen consistent with dense tissue in the left upper quadrant suggestive of splenomegaly.). Tenderness: There is abdominal tenderness (Left upper quadrant). Musculoskeletal Cervical back: Normal range of motion. Comments: No distinct joint tenderness noted on exam today. No tenderness noted in the hands today.She is able to make full fist. No synovitis noted on clinical exam today. She is not describing any tenderness in her proximal or distal legs. No knee or hip pain today. Skin General: Skin is warm and dry. Findings: No rash. Neurological Mental Status: She is alert and oriented to person, place, and time. Lab: Laboratory studies completed prior to today's visit were reviewed with the patient. These include CBC with hemoglobin 11.1, platelet count 145, and normal white blood cell count at 3.9. Differential with persistent lymphopenia which is stable. Sedimentation rate is elevated at 119, CRP is normal.Creatinine is slightly improved at 1.19. AST is normal at 20. Complements and double-stranded DNA still pending. Disease Activity SLEDAI ASSESSMENT / PLAN #1 Lupus Systemic Erythematosus (HCC) #2 Hepatitis Autoimmune (HCC) #3 Thrombocytopenia (HCC) #4 Splenomegaly Not Elsewhere Classified She is tolerating the CellCept well. We will increase to 2 g per day. I have scheduled repeat labs in two weeks. We will not introduce prednisone at this time. I will plan to follow up with her in two months. If lupus is felt to be active at that time would consider switching back to azathioprine and adding Benlysta. I did review previous ultrasounds of the abdomen from 2019 which did reveal stable splenomegaly. I have suggested we repeat the ultrasound of the abdomen. I reviewed case with Dr. Bal who had seen the patient in September 2020. If the ultrasound does suggest splenomegaly we will look into this further. I will order a flow cytometry as well given the persistence of her nonspecific symptoms and elevation of the sedimentation rate. She does have ongoing or persisting anemia and thrombocytopenia for which we might consider hematology referral. If splenomegaly is stable would consider CT of the abdomen to further define area of tenderness or PET scan. I reviewed the above with Dr. Bal who was agreeable with this plan. PATIENT EDUCATION Ready to learn, no apparent learning barriers were identified; learning preferences include listening. Explained diagnosis and treatment plan; patient expressed understanding of the content. documented in this encounter Plan of Treatment Upcoming Encounters Date Type Specialty Care Team Description 07/08/2022 Appointment Laboratory Medicine Pedro Donnelly APRN, C.N.P. [address] [place] [phone] (Wo rk) 07/08/2022 Office Visit Gastroenterology and Collin Trivedi, Hepatology Chloe [address] [place] [phone] (Claudia rk) Scheduled Referrals Name Type Priority Associated Order Schedule Diagnoses Rheumatology office Outpatient Referral Routine E xpected: visit (clinic) 03/28/2021 (Approximate), Expires: 02/01/2024 documented as of this encounter Results (ABNORMAL) Urinalysis with Microscopic: Urine, Voided (04/19/2021 7:10 AM CDT) Patholo gist Method Time Signature Source Midstream 04/19/2021 DTL [...] 7:43 Voided) CDT AM CDT Pedro Donnelly APRN C.N.P. LAB URINE ORDERABLES Performing Organization Address City/State/ZIP Code Phon e Number [facility] - 200 [place], [place] [address] [facility] [place] [address] [facility] 200 [facility] (ABNORMAL) Complement C4 (04/19/2021 7:05 AM CDT) P athologist Signature Complement C4, S 3 (L) 14 - 40 04/19/2021 [facility] mg/dL 12:01 PM CDT Specimen Anatomical Collection Method Collection Time Receive d Time (Source) Location / / Volume Laterality Blood (Blood, 04/19/2021 7:05 AM 04/19/20 Venous) CDT 10:30 AM CDT Apolonia Kumar APRN.N.P. LAB BLOOD ADD-ON Performing Organization Address City/State/ZIP Code Phon e Number [facility] [address] [place] [address] [facility] [place] [address] Laboratory Medicine and Pathology [address] [place] [address] Dr. CACERES Complement C3 (04/19/2021 7:05 AM CDT) athologist Signature Complement C3, S 84 75 - 175 04/19/2021 [facility] mg/dL 11:32 AM CDT Specimen Anatomical Collection Method Collection Time Receive d Time (Source) Location / / Volume Laterality Blood (Blood, 04/19/2021 7:05 AM 04/19/20 Venous) CDT 10:30 AM CDT Apolonia Kumar APRN.N.P. LAB BLOOD ADD-ON Performing Organization Address City/[facility]/ZIP Code Phon e Number [facility] [address] [place] [phone] [facility] [place] [address] Laboratory Medicine and Pathology [address] [place] [address] Dr. CACERES DNA Double-Stranded (dsDNA) Antibodies, IgG (04/19/2021 7:05 AM CDT) athologist Signature DNA 12.5 <30.0 04/19/2021 [facility] Double-Stranded (Negative) 5:09 PM CDT Ab, IgG, S IU/mL Specimen Anatomical Collection Method Collection Time Receive d Time (Source) Location / / Volume Laterality Blood (Blood, 04/19/2021 7:05 AM 04/19/20 Venous) CDT 10:34 AM CDT Apolonia Kumar APRN.N.P. LAB BLOOD ADD-ON Performing Organization Address City/State/ZIP Code Phon e Number [facility] [address] [place] [address] [facility] [place] [address] Laboratory Medicine and Pathology [address] [place] [address] Dr. CACERES CRP (C-Reactive Protein) (04/19/2021 7:05 AM CDT) P athologist Signature C-Reactive 7.2 <=8.0 mg/L 04/19/2021 [facility] Protein (CRP), 8:03 AM CDT S Specimen Anatomical Collection Method Collection Time Receive d Time (Source) Location / / Volume Laterality Blood (Blood, 04/19/2021 7:05 AM 04/19/20 7:25 Venous) CDT AM CDT Pedro Donnelly APRN, C.N.P. LAB BLOOD ADD-ON Performing Organization Address City/[facility] Phon e Number [facility] - [address] [place] [address] (ABNORMAL) Sedimentation Rate (04/19/2021 7:05 AM CDT) Patholo gist Method Time Signature Sedimentation 124 (H) 2 - 22 04/19/2021 [facility] Rate, B mm/h 8:04 AM CDT Specimen Anatomical Collection Method Collection Time Receive d Time (Source) Location / / Volume Laterality Blood (Blood, 04/19/2021 7:05 AM 04/19/20 7:15 Venous) CDT AM CDT Pedro Donnelly APRN, C.N.P. LAB BLOOD ADD-ON Performing Organization Address City/[facility] Phon e Number [facility] - [address] (ABNORMAL) Complement, Total (04/19/2021 7:04 AM CDT) athologist Signature Complement, 25 (L) 30 - 75 04/22/2021 [facility] Total, S U/mL 4:53 PM CDT Specimen Anatomical Collection Method Collection Time Receive d Time (Source) Location / / Volume Laterality Blood (Blood, 04/19/2021 7:04 AM 04/22/20 3:01 Venous) CDT PM CDT Pedro Donnelly APRN, C.N.P. LAB BLOOD NON ADD-ON Performing Organization Address City/State/ZIP Code Phon e Number [facility] [address] [place], [place] [address] [facility] [place] [address] Laboratory Medicine and Pathology [address] CAC[place] Leukemia/Lymphoma Immunophenotyping by Flow Cytometry, Blood (02/13/2021 [...] received within validated starla delines. Microscopic A Icmbft-Jeorzw-nynkmcx slid e prepared from the flow cytometry specimen is 02/14/2021 DTL Description examined. ??No morphologic f eatures of acute leukemia or lymphoma are 10:29 AM identified. CDT Comment: ----ADDITIONAL INFORMATION---- This test was developed using an analyte specific reagent. Its performance characteristics were determined by [facility] in a manner consistent with CLIA [...] is no t available. Pedro Donnelly APRN C.N.PSarina LAB GENETIC TESTING Performing Organization Address City/State/ZIP Code Phon e Number [facility] - 200 [place], [place] [address] [facility] [place] [address] [facility] 200 [facility] (ABNORMAL) CBC with Differential, Blood (02/13/2021 2:20 PM CDT) [facility] Method Time Signature Hemoglobin 10.9 (L) 11.6 [...] 2:42 Venous) CDT PM CDT Pedro Donnelly APRN C.N.P. LAB BLOOD ADD-ON Performing Organization Address City/State/ZIP Code Phon e Number [facility] - [address] [place], [place] [address] [facility] [place] [address] [facility] [address] documented in this encounter Visit Diagnoses Diagnosis Lupus Systemic Erythematosus (HCC) - Afia vinh Hepatitis Autoimmune (HCC) Thrombocytopenia (HCC) Splenomegaly Not Elsewhere Classified documented in this encounter
--- OUTSIDE RECORDS SUMMARY | 2022-05-22 16:02 | XMS_ITS | Encounter Summary ---
:[address] [facility] Address [address] [place] [address] Care Team Providers Name Role Phone Unavailable Primary Care Provider Unavailable Reason for Visit Reason Comments Med Refill Encounter Details Date Type Department Care Team Description 02/21/2021 Refill Division of Rheumatology in [facility], Landon Mosher M.D. Med Refill [place], [place] [address] [place] [phone] Social History Tobacco Use Types Packs/Day Years [...] How often do you attend confucianist or church services? Never 09/23/2021 Do you belong to [...] Telephone Encounter - Lesvia Brizuela R.N. - 02/25/2021 11:30 AM CDT Prescription renewal request for mycophenolate mofetil (Cellcept) received from pharmacy. HISTORY OF PRESENT ILLNESS Last Rheum visit: 01/31/2021 with Pedro Donnelly APRN, CNP Future office visit: 04/19/2021 Last monitoring labs/eye exam: monitoring labs 02/13/2021: within protocol parameters. Prescription request does not match current plan of care. Prescription request does not match a current prescription in the Medication List. Exclusion criteria: None ASSESSMENT/PLAN Prescription request pended for provider review due to requested prescription does not match plan ofcare. increased dosage 01/31/2021 last office visit. documented in this encounter Plan of Treatment Upcoming Encounters Date Type Specialty Care Team Description 07/08/2022 Appointment Laboratory Medicine Pedro Donnelly APRN, C.N.P. [address] [place] [phone] (Claudia vera) 07/08/2022 Office Visit Gastroenterology and Collin Trivedi Hepatology [place] [address] [place] [phone] (Claudia vera) documented as of this encounter Visit Diagnoses Diagnosis Lupus Systemic Erythematosus (HCC) - Afia justice documented in this encounter
--- OUTSIDE RECORDS SUMMARY | 2022-05-22 16:02 | XMS_ITS | Encounter Summary ---
:1965 Author Organization [facility] Address [address] [place] [address] Care Team Providers Name Role Phone Unavailable Primary Care Provider Unavailable Encounter Details Date Type Department Care Team Description 12/07/2020 Orders Only [facility] PCP TH Sa erasmo Villalobos M.D. [address] [place], [place] [phone] (Wo rk) Social History [...] er 09/23/2021 How often do you attend sikhism or orthodoxy services? Never 09/23/2021 Do you belong to any clubs or organizations such as No 09/23/2021 sikhism groups, unions, fraternal or athletic groups, or [...] Description 07/08/2022 Appointment Laboratory Medicine Pedro Donnelly, SHAKE MAKER, C.N.P. [address] [place] [phone] (Claudia vera) 07/08/2022 Office Visit Gastroenterology and Collin Trivedi, Hepatology MSarinaDSarina [address] [place] [phone] (Claudia vera) documented as of this encounter Visit Diagnoses Not on filedocumented in this encounter
--- OUTSIDE RECORDS SUMMARY | 2022-05-22 16:02 | XMS_ITS | Encounter Summary ---
:1965 Author Organization [facility] Address [address] [place] [address] Care Team Providers Name Role Phone Unavailable Primary Care Provider Unavailable Reason for Referral MRI/CAT/PET Scan (Routine) - Closed Specialty Diagnoses / Procedures Referred By Contact Refer red To Contact Radiology Diagnoses Bloating Abdominal Landon Bal M.D. [facility] Procedures CT Abdomen Pelvis with IV Contrast CT Abdomen Pelvis without IV Contrast 200 [place] [phone] Referral ID Status Reason Start Date Expiration Date Visits Requ ested Visits Authorized [id number] Closed 02/18/2021 02/18/2022 1 1 Encounter Details Date Type Department Care Team Description 02/18/2021 Orders Only Division of Rheumatology Landon Bal, Bloating Abdominal in [facility] [place] [address] [place] [phone] Social History Tobacco Use Types Packs/Day [...] er 09/23/2021 How often do you attend rastafarian or yazdanism services? Never 09/23/2021 Do you belong to any clubs or organizations such as No 09/23/2021 rastafarian groups, unions, fraternal or athletic groups, or [...] 07/08/2022 Appointment Laboratory Medicine Pedro Donnelly, DIRECTOR HEDIS, C.N.P. [address] [place] [phone] (Claudia vera) 07/08/2022 Office Visit Gastroenterology and Collin Trivedi Hepatology MSarinaDSarina [address] [place] [phone] (Claudia vera) documented as of this encounter Results CT Abdomen Pelvis with [...] IMPRESSION: No explanation for abdominal pain. Landon Bal M.D. IMG CT PROCEDURES documented in this encounter Visit Diagnoses Diagnosis Bloating Abdominal Bloating Abdominal documented in this encounter
--- OUTSIDE RECORDS SUMMARY | 2022-05-22 16:02 | XMS_ITS | Encounter Summary ---
:1965 Author Organization [facility] Address [address] [place] [address] Care Team Providers Name Role Phone Unavailable Primary Care Provider Unavailable Reason for Visit Outpatient (Routine) - Modified Order Specialty Diagnoses / Procedures Referred By Contact Refer red To Contact Diagnoses Hepatitis Autoimmune (HCC) Splenomegaly Not Elsewhere Classified Pedro Donnelly APRN, [place] Procedures US Spleen US Abdomen Complete C.N.P. [address] [place] [address] [phone] Referral ID Status Reason Start Date Expiration Date Visits V isits Requested Authorized [id number] Modified 01/31/2021 01/31/2022 1 1 Order Encounter Details Date Type Department Care Team Description 02/13/2021 Hospital Encounter Department of Pedro Donnelly Hepatit is Autoimmune (HCC); Radiology, Maxi Rojas APRN, C.N.P. Splenomegaly Not Elsewhere Classified Building, in [address] [place] [phone] [place] [address] [place], [place] (Work) [phone] Social History Tobacco Use Types Packs/Day Years [...] er 09/23/2021 How often do you attend yarsanism or religion services? Never 09/23/2021 Do you belong to any clubs or organizations such as No 09/23/2021 yarsanism groups, unions, fraternal or athletic groups, or [...] Medicine Pedro Donnelly APRN, C.N.P. [address] [place] [phone] (Claudia vera) 07/08/2022 Office Visit Gastroenterology and Collin Trivedi Hepatology Chloe [address] [place] [phone] (Claudia vera) documented as of this encounter Procedures Procedure Name Priority Date/Time Associated Comments Diagnosis US SPLEEN RAD - Routine 02/13/2021 3:38 Hepatitis Results for this (most inpatients PM CDT Autoimmune (HCC ) procedure are in and all Splenomegaly Not the results outpatients) Elsewhere section. Classified documented in this encounter Results US Spleen (02/13/2021 3:38 PM CDT) Anatomical Region Laterality Modality Abdomen, Ultrasound RST LOS, Ultrasound ARZ LOS, Ultrasound FLA N/A Ultrasound LOS Specimen (Source) Anatomical Collection Method Collection Time Re ceived Time Location / / Volume Laterality 02/13/2021 3:46 PM CDT Impressions 02/13/2021 3:49 PM CDT Unchanged splenomegaly. Narrative 02/13/2021 3:49 PM CDT EXAM: US SPLEEN COMPARISON: 10/19/2020. FINDINGS: Spleen: Unchanged splenomegaly. Spleen l ength: 16.0 cm. A 1.3 cm splenule was also seen on the prior examination. Incidentally noted is left renal parench ymal thinning, which is unchanged since the prior examination and is indicative of chronic renal parenchymal disease. Procedure Note Alexander Ye M.D. - 02/13/2021Forma tting of this note might be different from the original. EXAM: US SPLEEN COMPARISON: 10/19/2020. FINDINGS: Spleen: Unchanged splenomegaly. Spleen l ength: 16.0 cm. A 1.3 cm splenule was also seen on the prior examination. Incidentally noted is left renal parench ymal thinning, which is unchanged since the prior examination and is indicative of chronic renal parenchymal disease. IMPRESSION: Unchanged splenomegaly. Pedro Donnelly APRN C.N.P. IMG US PROCEDURES documented in this encounter Visit Diagnoses Diagnosis Hepatitis Autoimmune (HCC) Splenomegaly Not Elsewhere Classified documented in this encounter
--- OUTSIDE RECORDS SUMMARY | 2022-05-22 16:02 | XMS_ITS | Encounter Summary ---
:1965 Author Organization [facility] Address [address] [place] [address] Care Team Providers Name Role Phone Unavailable Primary Care Provider Unavailable Reason for Visit Reason Comments Med Refill Encounter Details Date Type Department Care Team Description 12/22/2020 Refill Division of Gastroenterology in [place], Med Refill [place], [place] Chloe [address] [facility] [address] [place] [phone] [place], [place] [phone] (Wo rk) Social History Tobacco Use Types [...] How often do you attend quaker or restorationist services? Never 09/23/2021 Do you belong to [...] Description 07/08/2022 Appointment Laboratory Medicine Pedro Donnelly, STACKER STRAIGHTENER, C.N.P. [address] [place] [address] (Claudia rk) 07/08/2022 Office Visit Gastroenterology and Collin Trivedi Hepatology M.DSarina [address] [place] [address] (Wo rk) documented as of this encounter Visit Diagnoses Not on filedocumented in this encounter
--- OUTSIDE RECORDS SUMMARY | 2022-05-22 16:02 | XMS_ITS | Encounter Summary ---
:1965 Author Organization [facility] Address [address] [place] [address] Care Team Providers Name Role Phone Unavailable Primary Care Provider Unavailable Encounter Details Date Type Department Care Team Description 11/22/2020 Hospital Encounter Department of [place], Landon Lupus [facility] Laboratory Medicine Chloe Mosher ([facility]) and Pathology, [facility] in [place], [place] [address] [place] [address] Social History Tobacco Use Types Packs/Day Years [...] er 09/23/2021 How often do you attend zoroastrian or hinduism services? Never 09/23/2021 Do you belong to any clubs or organizations such as No 09/23/2021 zoroastrian groups, unions, fraternal or athletic groups, or [...] mg calcium- mouth daily. 800 unit tablet lisinopril-hydroCHLOROthi Take 1 tablet by 0 azide mouth daily. (PRINZIDE,ZESTORETIC) 20-25 mg per tablet mycophenolate (CELLCEPT) Take 1 tablet (500 180 tablet 0 08/202101/31/2021 500 mg tablet mg total) by mouth 2 (two) times a day. omeprazole (PriLOSEC) 40 TAKE 1 CAPSULE BY 90 capsule 2 06/0811/27/[address] capsule MOUTH EVERY DAY pravastatin (PRAVACHOL) TAKE 1 TABLET BY 90 [...] Description 07/08/2022 Appointment Laboratory Medicine Pedro Donnelly, RADIO INTERFERENCE SUPERVISOR, C.N.P. [address] [place] [phone] (Claudia vera) 07/08/2022 Office Visit Gastroenterology and Collin Trivedi Hepatology MAyala [address] [place] [phone] (Wo rk) documented as of this encounter Procedures Procedure Name Priority Date/Time Associated Diagnosis Comme nts DNA DOUBLE-STRANDED Routine 11/22/2020 9:55 Lupus Systemic Res ults for this (DSDNA) ABS WITH REFLEX, AM CDT Erythematosus (H CC) procedure are in IGG, S the results section. SEDIMENTATION RATE, B Routine 11/22/2020 9:55 Lupus Systemic R esults for this AM CDT Erythematosus (HCC) procedur e are in the results section. CBC WITH DIFFERENTIAL, B Routine 11/22/2020 9:55 Lupus Systemi c Results for this AM CDT Erythematosus (HCC) procedur e are in the results section. COMPL C3, S Routine 11/22/2020 9:55 Lupus Systemic Results fo r this AM CDT Erythematosus (HCC) procedur e are in the results section. COMPLEMENT C4, S Routine 11/22/2020 9:55 Lupus Systemic Result s for this AM CDT Erythematosus (HCC) procedur e are in the results section. C-REACTIVE PROTEIN Routine 11/22/2020 9:55 Lupus Systemic Resu lts for this (CRP), S/P AM CDT Erythematosus (HCC) procedur e are in the results section. ASPARTATE Routine 11/22/2020 9:55 Lupus Systemic Results fo r this AMINOTRANSFERASE (AST), AM CDT Erythematosus (HC C) procedure are in S/P the results section. CREATININE WITH EGFR, Routine 11/22/2020 9:55 Lupus Systemic R esults for this S/P AM CDT Erythematosus (HCC) procedur e are in the results section. documented in this encounter Results (ABNORMAL) Complement C4 (11/22/2020 9:55 AM CDT) P athologist Signature Complement C4, S 5 (L) 14 - 40 11/22/2020 [facility] mg/dL 2:41 PM CDT Specimen Anatomical Collection Method Collection Time Receive d Time (Source) Location / / Volume Laterality Blood (Blood, 11/22/2020 9:55 AM 11/23/19 21 Venous) CDT 12:17 PM CDT Landon Bal M.D. LAB BLOOD ADD-ON Performing Organization Address City/State/ZIP Code Phon e Number [facility] [address] [place] [address] Dr CACERES [place], [place] [address] SUPPORT [place] [address] Laboratory Medicine and Pathology [address] [place] [address] Dr. CACERES Complement C3 (11/22/2020 9:55 AM CDT) athologist [facility] Complement C3, S 87 75 - 175 11/22/2020 [facility] mg/dL 1:10 PM CDT Specimen Anatomical Collection Method Collection Time Receive d Time (Source) Location / / Volume Laterality Blood (Blood, 11/22/2020 9:55 AM 11/23/19 Venous) CDT 12:17 PM CDT Landon Bal M.D. LAB BLOOD ADD-ON Performing Organization Address City/[facility]/ZIP [facility] Phon e Number [address] CACERES [place] [address] [facility] [address] Laboratory Medicine and Pathology [address] [place] [address] Dr. CACERES DNA Double-Stranded (dsDNA) Antibodies with Reflex, IgG (11/22/2020 9:55 AM CDT) [facility] DNA 21.0 <30.0 11/22/2020 [facility] Double-Stranded (Negative) 6:34 PM CDT AB, IgG, S IU/mL Comment: Negative for dsDNA antibody by enzyme im munoassay. No further testing recommended. Specimen Anatomical Collection Method Collection Time Receive d Time (Source) Location / / Volume Laterality Blood (Blood, 11/22/2020 9:55 AM 11/23/19 Venous) CDT 12:21 PM CDT Landon Bal M.D. LAB BLOOD ADD-ON Performing Organization Address City/State/ZIP Code Phon e Number [place] [phone] [place] [address] SUPPORT C[facility] [place] [address] Laboratory Medicine and Pathology [address] [place] [address] Dr. CACERES AST (Aspartate Aminotransferase) (11/22/2020 9:55 AM CDT) [facility] gist Method Time Signature Aspartate 21 8 - 43 11/22/2020 DTL Aminotransferase U/L 11:00 AM CDT (AST), S Specimen Anatomical Collection Method Collection Time Receive d Time (Source) Location / / Volume Laterality Blood (Blood, 11/22/2020 9:55 AM 11/23/19 Venous) CDT 10:18 AM CDT Landon Bal M.D. LAB BLOOD ADD-ON Performing Organization Address City/[facility] Phon e Number [facility] - 200 [place], [place] [address] [facility] [place], [place] [phone] [place] [address] (ABNORMAL) Creatinine with Estimated GFR (11/22/2020 9:55 AM CDT) Analysis Performed At Patho logist Time Signature Creatinine 1.23 (H) 0.59 - 11/22/2020 DTL 1.04 mg/dL 11:00 AM CDT eGFR-Non 49 (L) >=60 11/22/2020 DTL Black/ mL/min/BSA 11:00 AM CDT Czech Comment: ----ADDITIONAL INFORMATION---- Estimated GFR calculated using the 2009 CKD_EPI creatinine equation. eGFR-Black/ 57 (L) >=60 mL/min/BSA 2020 11:00 AM CDT DTL Comment: ----ADDITIONAL INFORMATION---- Estimated GFR calculated using the 2009 CKD_EPI creatinine equation. Specimen Anatomical Collection Method Collection Time Receive d Time (Source) Location / / Volume Laterality Blood (Blood, 11/22/2020 9:55 AM 11/23/19 Venous) CDT 10:18 AM CDT Landon Bal M.D. LAB BLOOD ADD-ON Performing Organization Address City/[facility] Code Phon e Number [facility] - 200 [place], [place] [address] [facility] [place], [place] [phone] [place] [address] CRP (C-Reactive Protein) (11/22/2020 9:55 AM CDT) P athologist Signature C-Reactive 5.5 <=8.0 mg/L 11/22/2020 DTL Protein (CRP), 11:00 AM CDT S Specimen Anatomical Collection Method Collection Time Receive d Time (Source) Location / / Volume Laterality Blood (Blood, 11/22/2020 9:55 AM 11/23/19 Venous) CDT 10:18 AM CDT Landon Bal M.D. LAB BLOOD ADD-ON Performing Organization Address City/[facility] Phon e Number [facility] - 200 [place] [address] [facility] [place] [address] (ABNORMAL) Sedimentation Rate (11/22/2020 9:55 AM CDT) [facility] [employer] Method Time Signature Sedimentation 108 (H) 2 - 22 11/22/2020 DTL Rate, B mm/h 6:07 PM CDT Specimen Anatomical Collection Method Collection Time Receive d Time (Source) Location / / Volume Laterality Blood (Blood, 11/22/2020 9:55 AM 11/23/19 21 Venous) CDT 10:39 AM CDT Landon Bal M.D. LAB BLOOD ADD-ON Performing Organization Address [facility] Phon e Number [facility] - [address] [place] [address] (ABNORMAL) CBC with Differential, Blood (11/22/2020 9:55 AM CDT) [facility] Method Time Signature Hemoglobin 12.0 11.6 - 11/22/2020 DTL 15.0 g/dL 10:48 AM CDT Hematocrit 36.9 35.5 - 11/22/2020 DTL 44.9 % 10:48 AM CDT Erythrocytes 4.04 3.92 - 11/22/2020 DTL 5.13 10:48 AM CDT x10(12)/L MCV 91.3 78.2 - 11/22/2020 DTL 97.9 fL 10:48 AM CDT RBC Distrib Width 16.1 12.2 - 11/22/2020 DTL 16.1 % 10:48 AM CDT Platelet Count 142 (L) 157 - 371 11/22/2020 DTL x10(9)/L 10:48 AM CDT Leukocytes 4.5 3.4 - 9.6 11/22/2020 DTL x10(9)/L 10:48 AM CDT Neutrophils 3.56 1.56 - 11/22/2020 DTL 6.45 10:48 AM CDT x10(9)/L Lymphocytes 0.59 (L) 0.95 - 11/22/2020 DTL 3.07 10:48 AM CDT x10(9)/L Monocytes 0.31 0.26 - 11/22/2020 DTL 0.81 10:48 AM CDT x10(9)/L Eosinophils 0.03 0.03 - 11/22/2020 DTL 0.48 10:48 AM CDT x10(9)/L Basophils <0.03 0.01 - 11/22/2020 DTL 0.08 10:48 AM CDT x10(9)/L Specimen Anatomical Collection Method Collection Time Receive d Time (Source) Location / / Volume Laterality Blood (Blood, 11/22/2020 9:55 AM 11/23/19 21 Venous) CDT 10:39 AM CDT Landon Bal M.D. LAB BLOOD ADD-ON Performing Organization Address City/State/ZIP Code Phon e Number [facility] - [address] [place], [place] [address] [facility] [place] [address] Laboratories-[facility] [address] documented in this encounter Visit Diagnoses Diagnosis Lupus Systemic Erythematosus (HCC) documented in this encounter
--- OUTSIDE RECORDS SUMMARY | 2022-05-22 16:02 | XMS_ITS | Encounter Summary ---
:1965 Author Organization [facility] Address [address] [place] [address] Care Team Providers Name Role Phone Unavailable Primary Care Provider Unavailable Encounter Details Date Type Department Care Team Description 12/24/2020 Hospital Encounter Department of [facility], Landon Baca on Therapy Laboratory Medicine Chloe Mosher Not in [address] [phone] Social History Tobacco Use Types [...] (PRINZIDE,ZESTORETIC) 20-25 mg per tablet omeprazole (PriLOSEC) 40 TAKE 1 CAPSULE (40 [address] capsule MG TOTAL) BY MOUTH 2 (TWO) TIMES A DAY BEFORE BREAKFAST AND DINNER. mycophenolate (CELLCEPT) Take 1 tablet (500 180 tablet 0 08/202101/31/2021 500 mg tablet mg total) by mouth 2 (two) times a day. oxybutynin (DITROPAN-XL) Take 10 mg by mouth 0 09/23/2021 10 mg 24 hr tablet daily. pravastatin (PRAVACHOL) TAKE 1 TABLET BY 90 [...] Description 07/08/2022 Appointment Laboratory Medicine Pedro Donnelly, TECHNICAL ILLUSTRATOR, C.N.P. [address] [place] [address] (Wo rk) 07/08/2022 Office Visit Gastroenterology and Collin Trivedi Hepatology Chloe [address] [place] [phone] (Wo rk) documented as of this encounter Procedures Procedure Name Priority Date/Time Associated Diagnosis Comme nts CBC WITH Routine 12/24/2020 9:22 AM Medication Therapy Res ults for this DIFFERENTIAL, B CDT Half-Way Not procedure a re in Anticoagulant the results section. documented in this encounter Results (ABNORMAL) CBC with Differential, Blood (12/24/2020 9:22 AM CDT) [facility] Method Time Signature Hemoglobin 11.6 [...] Laterality Blood (Blood, 12/24/2020 9:22 AM 12/25/19 9:23 Venous) CDT AM CDT Landon Bal M.D. LAB BLOOD ADD-ON Performing Organization Address City/State/ZIP Code Phon e Number [facility]- [address] [place] [address] [place] [address] System in [place] [address] [facility] documented in this encounter Visit Diagnoses Diagnosis Medication Therapy Half-Way Not Anticoa gulant documented in this encounter
--- OUTSIDE RECORDS SUMMARY | 2022-05-22 16:02 | XMS_ITS | Encounter Summary ---
:1965 Author Organization [facility] Address [address] [place] [address] Care Team Providers Name Role Phone Unavailable Primary Care Provider Unavailable Encounter Details Date Type Department Care Team Description 01/25/2021 Orders Only Division of Dalia Ghotra Lupus Erythema tosus Rheumatology in [facility] (Primary Dx) [place], [place] [address] [facility] [address] [place] [address] [phone] Social History Tobacco Use Types Packs/Day Years [...] er 09/23/2021 How often do you attend restorationism or advent services? Never 09/23/2021 Do you belong to any clubs or organizations such as No 09/23/2021 restorationism groups, unions, fraternal or athletic groups, or [...] place to sleep or slept in a chcf (including now)? Education Answer Date Recorded What is the highest level of school you have completed or 12 th grade 06/17/2019 the highest degree you have received? Sex Assigned at Date Recorded Female 03/09/2018 3:30 PM CDT documented as of this encounter Plan of Treatment Upcoming Encounters Date Type Specialty Care Team Description 07/08/2022 Appointment Laboratory Medicine Pedro Donnelly, FIELD ARTILLERY OPERATIONS SPECIALIST, C.N.P. [address] [place] [address] (Wo rk) 07/08/2022 Office Visit Gastroenterology and Collin Trivedi Hepatology MAyala [address] [place] [address] (Wo rk) documented as of this encounter Results Miscellaneous Research, B (01/31/2021 10:07 AM CDT) athologist Signature Number of 5 01/31/2021 [facility] Specimens 10:07 AM CDT Specimen Anatomical Collection Method Collection Time Receive d Time (Source) Location / / Volume Laterality Varies (Blood, 01/31/2021 10:07 1 Venous) AM CDT 10:07 AM CDT Magdy Ni M.D. LAB RESEARCH NO RESULT ANDREA HERNÁNDEZ Performing Organization Address City/State/ZIP Code Phon e Number [facility] - [address] [place] [address] [place] [address] Laboratories-[address] documented in this encounter Visit Diagnoses Diagnosis Lupus Erythematosus - Primary documented in this encounter
--- OUTSIDE RECORDS SUMMARY | 2022-05-22 16:02 | XMS_ITS | Encounter Summary ---
:1965 Author Organization [facility] Address [address] [place] [address] Care Team Providers Name Role Phone Unavailable Primary Care Provider Unavailable Reason for Visit Reason Comments COVID Inquiry Encounter Details Date Type Department Care Team Description 12/13/2020 Clinical Communication Department of Family Preschedul ing, COVID Inquiry Medicine, [facility], in [address] [address] Social History Tobacco Use Types [...] How often do you attend scientology or anabaptist services? Never 09/23/2021 Do you belong to [...] this encounter Miscellaneous Notes Telephone Encounter - Tabitha Daigle - 12/13/2020 10:52 AM CDT What is the purpose of the call?: Standard Appointment Process Standard Appointment Process Have you tested positive for COVID-19 in the last 20 days OR do you have a pending COVID-19 test because you had symptoms?: No, neither apply What region is the appointment being requested?: Less than 20 days RST, SWWI or SEMN In the past 14 days are any of the following symptoms new to you and not related to an existing health condition?: No symptoms noted In the past 14 days have you had close contact* with a person who has a LABORATORY CONFIRMED case ofCOVID-19?: No exposure noted, follow appt process (End Screening) Testing Recommendation Endpoint Is testing recommended? : Not recommended to test Plan: Endpoint recommendation: Followed regional OTG *Reminder if sending patient for testing in RST or [facility], route encounter to the correct testing pool. documented in this encounter Plan of Treatment Upcoming Encounters Date Type Specialty Care Team Description 07/08/2022 Appointment Laboratory Medicine Pedro Donnelly, SONAR TECHNICIAN, C.N.P. [address] [place] [phone] (Claudia vera) 07/08/2022 Office Visit Gastroenterology and Collin Trivedi Hepatology MAyala [address] [place] [phone] (Claudia vera) documented as of this encounter Visit Diagnoses Not on filedocumented in this encounter
--- OUTSIDE RECORDS SUMMARY | 2022-05-22 16:02 | XMS_ITS | Encounter Summary ---
:1965 Author Organization [facility] Address [address] [place] [address] Care Team Providers Name Role Phone Unavailable Primary Care Provider Unavailable Reason for Visit Reason Comments Lab Monitoring Encounter Details Date Type Department Care Team Description 11/23/2020 Clinical Communication Division of Geraldine Carter Monitoring Rheumatology in L, M.A.N., R.N. [place], [place] [address] [facility] [address] [place] [phone] Social History Tobacco Use Types Packs/Day Years [...] How often do you attend hinduism or mormonism services? Never 09/23/2021 Do you [...] this encounter Miscellaneous Notes Telephone Encounter - Geraldine Carter M.A.N., R.N. - 11/23/2020 12:03 PM CDT ASSESSMENT Rheumatology Monitoring Labs completed on 11/22/20 for mycophenolate mofetil (Cellcept) monitoring were reviewed [...] Medicine Pedro Donnelly, ANTHONY, C.N.P. [address] [place] [phone] (Claudia vera) 07/08/2022 Office Visit Gastroenterology and Collin Trivedi Hepatology Chloe [address] [place] [phone] (Claudia vera) documented as of this encounter Results (ABNORMAL) CBC with Differential, Blood (12/06/2020 10:02 AM CDT) [facility] Method Time Signature Hemoglobin 11.6 11.6 [...] Organization Address City/State/ZIP Code Phon e Number [facility]- [address] [place] [address] [facility] [place] [address] System in [place] [address] documented in this encounter 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
--- OUTSIDE RECORDS SUMMARY | 2022-05-22 16:02 | XMS_ITS | Encounter Summary ---
:1965 Author Organization [facility] Address [address] [place] [address] Care Team Providers Name Role Phone Unavailable Primary Care Provider Unavailable Encounter Details Date Type Department Care Team Description 01/30/2021 Orders Only Division of Rheumatology in [place] vil[place], [place] [address] [place] [phone] Social History Tobacco Use Types Packs/Day [...] How often do you attend yazdanism or jehovah's witness services? Never 09/23/2021 Do [...] Description 07/08/2022 Appointment Laboratory Medicine Pedro Donnelly, TEACHER EARLY CHILDHOOD DEVELOPMENT, C.N.P. [address] [place] [phone] (Claudia vera) 07/08/2022 Office Visit Gastroenterology and Collin Trivedi Hepatology M.DSarina [address] [place] [phone] (Claudia vera) documented as of this encounter Visit Diagnoses Not on filedocumented in this encounter
--- OUTSIDE RECORDS SUMMARY | 2022-05-22 16:02 | XMS_ITS | Encounter Summary ---
:1965 Author Organization [facility] Address [address] [place] [address] Care Team Providers Name Role Phone Unavailable Primary Care Provider Unavailable Reason for Visit Reason Comments Labs Only Encounter Details Date Type Department Care Team Description 02/01/2021 Documentation Division of Rheumatology Meg Guzmán, Labs Only in [facility] ki R.N. [address] [facility] [address] [place] [phone] [place], [place] [phone] Social History Tobacco Use Types Packs/Day Years [...] How often do you attend sikhism or yazdanism services? Never 09/23/2021 Do you [...] place to sleep or slept in a usp (including now)? Education Answer Date Recorded What is the highest level of school you have completed or 12 th grade 06/17/2019 the highest degree you have received? Sex Assigned at Date Recorded Female 03/09/2018 3:30 PM CDT documented as of this encounter Progress Notes Vesna Guzmán R.N. - 02/01/2021 10:15 AM CDT ASSESSMENT Rheumatology Monitoring Labs completed on 01/31/2021 for mycophenolate mofetil (Cellcept) monitoring were reviewed per provider order. All monitored labs are within order range. Labs reviewed: absolute neutrophil count, hemoglobin, leukocytes, platelets PLAN Patient to continue with current plan of care. Patient next due for monitoring labs in two months. Labs already scheduled for 02/14/2021 and 04/08/2021. documented in this encounter Plan of Treatment Upcoming Encounters Date Type Specialty Care Team Description 07/08/2022 Appointment Laboratory Medicine Pedro Donnelly APRN, C.N.P. [address] [place] [phone] (Claudia vera) 07/08/2022 Office Visit Gastroenterology and Collin Trivedi Hepatology Chloe [address] [place] [phone] (Claudia vera) documented as of this encounter Visit Diagnoses Not on filedocumented in this encounter
--- OUTSIDE RECORDS SUMMARY | 2022-05-22 16:02 | XMS_ITS | Encounter Summary ---
:1965 Author Organization [facility] Address [address] [place] [address] Care Team Providers Name Role Phone Unavailable Primary Care Provider Unavailable Encounter Details Date Type Department Care Team Description 01/31/2021 Hospital Encounter Department of Pedro Donnelly S ystemic Erythematosus (HCC); Laboratory Medicine R, SECURITY AMBASSADOR, C.N .P. Lupus Erythematosus and Pathology, [address] [place] [address], in [facility] [phone] [place] [address] [place] [address] (Work) [place], [place] [phone] [address] (Fax) [phone] Social History Tobacco Use Types Packs/Day Years [...] mycophenolate Take 2 tablets 360 tablet 0 01/31/202102/25/ 021 (CELLCEPT) 500 mg (1,000 mg total) [...] 1 per day valacyclovir HCl 0 12/07/2019 07/19/20 21 (VALACYCLOVIR ORAL) documented as of this encounter Plan of Treatment Upcoming Encounters Date Type Specialty Care Team Description 07/08/2022 Appointment Laboratory Medicine Pedro Donnelly, SECURITY AMBASSADOR, C.N.P. [address] [place] [phone] (Wo rk) 07/08/2022 Office Visit Gastroenterology and Collin Trivedi Hepatology Chloe [address] [place] [phone] (Wo rk) documented as of this encounter Procedures Procedure Name Priority Date/Time Associated Diagnosis Comme nts [facility] RESEARCH ORDER, B Routine 01/31/2021 10:07 Lupus Erythema tosus Results for this AM CDT procedure are i n the results section. DNA DOUBLE-STRANDED Routine 01/31/2021 10:06 Lupus Systemic Re sults for this (DSDNA) ABS, IGG, S AM CDT Erythematosus (HCC) p rocedure are in the results section. SEDIMENTATION RATE, B Routine 01/31/2021 10:06 Lupus Systemic Results for this AM CDT Erythematosus (HCC) procedur e are in the results section. CBC WITH DIFFERENTIAL, B Routine 01/31/2021 10:06 Lupus System ic Results for this AM CDT Erythematosus (HCC) procedur e are in the results section. COMPL, TOT, S Routine 01/31/2021 10:06 Lupus Systemic Results for this AM CDT Erythematosus (HCC) procedur e are in the results section. COMPL C3, S Routine 01/31/2021 10:06 Lupus Systemic Results f or this AM CDT Erythematosus (HCC) procedur e are in the results section. COMPLEMENT C4, S Routine 01/31/2021 10:06 Lupus Systemic Resul ts for this AM CDT Erythematosus (HCC) procedur e are in the results section. C-REACTIVE PROTEIN Routine 01/31/2021 10:06 Lupus Systemic Res ults for this (CRP), S/P AM CDT Erythematosus (HCC) procedur e are in the results section. ASPARTATE Routine 01/31/2021 10:06 Lupus Systemic Results f or this AMINOTRANSFERASE (AST), AM CDT Erythematosus (HC C) procedure are in S/P the results section. CREATININE WITH EGFR, Routine 01/31/2021 10:06 Lupus Systemic Results for this S/P AM CDT Erythematosus (HCC) procedur e are in the results section. documented in this encounter Results Miscellaneous Research, B (01/31/2021 10:07 AM CDT) athologist Signature Number of 5 01/31/2021 HSS Specimens 10:07 AM CDT Specimen Anatomical Collection Method Collection Time Receive d Time (Source) Location / / Volume Laterality Varies (Blood, 01/31/2021 10:07 Venous) AM CDT 10:07 AM CDT Magdy iN M.D. LAB RESEARCH NO RESULT ANDREA HERNÁNDEZ Performing Organization Address City/[facility] Code Phon e Number [facility] - [address] [place], [place] [address] [place] [address] Laboratories-[facility] [address] Complement, Total (01/31/2021 10:06 AM CDT) athologist Signature Complement, 32 30 - 75 01/31/2021 SDSC Total, S U/mL 5:11 PM CDT Specimen Anatomical Collection Method Collection Time Receive d Time (Source) Location / / Volume Laterality Blood (Blood, 01/31/2021 10:06 01/31/2021 3:02 Venous) AM CDT PM CDT Perdo Donnelly APRN, C.N.PSarina LAB BLOOD NON ADD-ON Performing Organization Address City/State/ZIP Code Phon e Number [facility] [address] [place], [place] [address] [facility] [place] [address] Laboratory Medicine and Pathology [address] [place] (ABNORMAL) Complement C4 (01/31/2021 10:06 AM CDT) athologist Signature Complement C4, S 4 (L) 14 - 40 01/31/2021 SDSC mg/dL 5:34 PM CDT Specimen Anatomical Collection Method Collection Time Receive d Time (Source) Location / / Volume Laterality Blood (Blood, 01/31/2021 10:06 01/31/2021 3:02 Venous) AM CDT PM CDT Apolonia Kumar APRN.N.PSarina LAB BLOOD ADD-ON Performing Organization Address City/State/ZIP Code Phon e Number [facility] [address] [place], [place] [address] SUPPORT [facility] [place] [address] Laboratory Medicine and Pathology [address] [place] [address] Dr. [place]ES Complement C3 (01/31/2021 10:06 AM CDT) athologist Signature Complement C3, S 86 75 - 175 01/31/2021 [facility] mg/dL 4:32 PM CDT Specimen Anatomical Collection Method Collection Time Receive d Time (Source) Location / / Volume Laterality Blood (Blood, 01/31/2021 10:06 01/31/2021 3:02 Venous) AM CDT PM CDT Robert Kumar APRNN.PSarina LAB BLOOD ADD-ON Performing Organization Address City/[facility]/ZIP Code Phon e Number [facility] [address] [place] [address] SUPPORT [facility] [place] [address] Laboratory Medicine and Pathology [address] [place] [address] Dr. [place] DNA Double-Stranded (dsDNA) Antibodies, IgG (01/31/2021 10:06 AM CDT) athologist Signature DNA 14.9 <30.0 02/01/2021 [facility] Double-Stranded (Negative) 10:59 AM CDT Ab, IgG, S IU/mL Specimen Anatomical Collection Method Collection Time Receive d Time (Source) Location / / Volume Laterality Blood (Blood, 01/31/2021 10:06 01/31/2021 1:59 Venous) AM CDT PM CDT Apolonia Kumar APRN.N.PSarina LAB BLOOD ADD-ON Performing Organization Address City/[facility]/ZIP Code Phon e Number [facility] [address] [place] [address] [facility] [place] [address] Laboratory Medicine and Pathology [address] [place] [address] Dr. CAC[place] (ABNORMAL) Creatinine with Estimated GFR (01/31/2021 10:06 AM CDT) Analysis Performed At Patho logist Time Signature Creatinine 1.19 (H) 0.59 - 01/31/2021 DTL 1.04 mg/dL 11:29 AM CDT eGFR-Non 51 (L) >=60 01/31/2021 DTL Black/ mL/min/BSA 11:29 AM CDT Taiwanese Comment: ----ADDITIONAL INFORMATION---- Estimated GFR calculated using the 2009 CKD_EPI creatinine equation. eGFR-Black/ 59 (L) >=60 mL/min/BSA 2020 11:29 AM CDT DTL Comment: ----ADDITIONAL INFORMATION---- Estimated GFR calculated using the 2009 CKD_EPI creatinine equation. Specimen Anatomical Collection Method Collection Time Receive d Time (Source) Location / / Volume Laterality Blood (Blood, 01/31/2021 10:06 01/31/2021 Venous) AM CDT 10:32 AM CDT Pedro Donnelly APRN, C.N.P. LAB BLOOD ADD-ON Performing Organization Address City/[facility] Phon e Number [facility] - [address] D[place] [address] [address] [facility] AST (Aspartate Aminotransferase) (01/31/2021 10:06 AM CDT) Patholo gist Method Time Signature Aspartate 20 8 - 43 01/31/2021 DTL Aminotransferase U/L 11:29 AM CDT (AST), S Specimen Anatomical Collection Method Collection Time Receive d Time (Source) Location / / Volume Laterality Blood (Blood, 01/31/2021 10:06 01/31/2021 Venous) AM CDT 10:32 AM CDT Pedro Donnelly APRN, C.N.P. LAB BLOOD ADD-ON Performing Organization Address City/State/[facility] Phon e Number [facility] - [address] [place] [address] First [facility] CRP (C-Reactive Protein) (01/31/2021 10:06 AM CDT) P athologist Signature C-Reactive 7.9 <=8.0 mg/L 01/31/2021 DTL Protein (CRP), 11:29 AM CDT S Specimen Anatomical Collection Method Collection Time Receive d Time (Source) Location / / Volume Laterality Blood (Blood, 01/31/2021 10:06 01/31/2021 Venous) AM CDT 10:32 AM CDT Pedro Donnelly APRN, Apolonia.N.P. LAB BLOOD ADD-ON Performing Organization Address [facility] Phon e Number [facility] - 200 [place], [place] [address] [facility] [place] [address] (ABNORMAL) Sedimentation Rate (01/31/2021 10:06 AM CDT) [facility] Method Time Signature Sedimentation 119 (H) 2 - 22 01/31/2021 DTL Rate, B mm/h 11:42 AM CDT Specimen Anatomical Collection Method Collection Time Receive d Time (Source) Location / / Volume Laterality Blood (Blood, 01/31/2021 10:06 01/31/2021 Venous) AM CDT 10:39 AM CDT Pedro Donnelly APRN, Apolonia.N.P. LAB BLOOD ADD-ON Performing Organization Address [facility] Phon e Number [facility] - 200 [place], [place] [address] [place] [address] [place] [phone] [place] [address] (ABNORMAL) CBC with Differential, Blood (01/31/2021 10:06 AM CDT) [facility] Method Time Signature Hemoglobin 11.1 (L) 11.6 - 01/31/2021 DTL 15.0 g/dL 10:51 AM CDT Hematocrit 34.3 (L) 35.5 - 01/31/2021 DTL 44.9 % 10:51 AM CDT Erythrocytes 3.90 (L) 3.92 - 01/31/2021 DTL 5.13 10:51 AM CDT x10(12)/L MCV 87.9 78.2 - 01/31/2021 DTL 97.9 fL 10:51 AM CDT RBC Distrib Width 15.1 12.2 - 01/31/2021 DTL 16.1 % 10:51 AM CDT Platelet Count 145 (L) 157 - 371 01/31/2021 DTL x10(9)/L 10:51 AM CDT Leukocytes 3.9 3.4 - 9.6 01/31/2021 DTL x10(9)/L 10:51 AM CDT Neutrophils 2.98 1.56 - 01/31/2021 DTL 6.45 10:51 AM CDT x10(9)/L Lymphocytes 0.58 (L) 0.95 - 01/31/2021 DTL 3.07 10:51 AM CDT x10(9)/L Monocytes 0.28 0.26 - 01/31/2021 DTL 0.81 10:51 AM CDT x10(9)/L Eosinophils 0.03 0.03 - 01/31/2021 DTL 0.48 10:51 AM CDT x10(9)/L Basophils <0.03 0.01 - 01/31/2021 DTL 0.08 10:51 AM CDT x10(9)/L Specimen Anatomical Collection Method Collection Time Receive d Time (Source) Location / / Volume Laterality Blood (Blood, 01/31/2021 10:06 01/31/2021 Venous) AM CDT 10:39 AM CDT Pedro Donnelly APRN, C.N.P. LAB BLOOD ADD-ON Performing Organization Address City/State/ZIP Code Phon e Number [facility] - [address] [place], [place] [address] [facility] [place] [address] Laboratories-[facility] [address] documented in this encounter Visit Diagnoses Diagnosis Lupus Systemic Erythematosus (HCC) Lupus Erythematosus documented in this encounter
--- OUTSIDE RECORDS SUMMARY | 2022-05-22 16:02 | XMS_ITS | Encounter Summary ---
:1965 Author Organization [facility] Address [address] [place] [address] Care Team Providers Name Role Phone Unavailable Primary Care Provider Unavailable Reason for Visit Reason Comments Lab Monitoring Encounter Details Date Type Department Care Team Description 12/25/2020 Clinical Communication Division of [facility], Landon Ramirez onitoring Rheumatology in Chloe Mosher [place], [place] [address] [place] [address] Social History Tobacco Use Types Packs/Day Years [...] er 09/23/2021 How often do you attend orthodox or sabianism services? Never 09/23/2021 Do you belong to any clubs or organizations such as No 09/23/2021 orthodox groups, unions, fraternal or athletic groups, or [...] this encounter Miscellaneous Notes Telephone Encounter - Nicole Hardy M.S.N., R.N. - 12/25/2020 1:30 PM CDT ASSESSMENT Rheumatology Monitoring Labs completed on 12/24/20 for mycophenolate mofetil (Cellcept) monitoring were reviewed per provider order. All monitored labs are within order range. Labs reviewed: absolute neutrophil count, hemoglobin, leukocytes, platelets PLAN Patient to continue with current plan of care. Patient next due for monitoring labs in two months. Patient has labs ordered for 01/31/21, will outreach to that date. No protocol labs ordered. documented in this encounter Plan of Treatment Upcoming Encounters Date Type Specialty Care Team Description 07/08/2022 Appointment Laboratory Medicine Pedro Donnelly APRN, C.N.P. [address] [place] [phone] (Claudia vera) 07/08/2022 Office Visit Gastroenterology and Collin Trivedi Hepatology Chloe [address] [place] [phone] (Claudia vera) documented as of this encounter Visit Diagnoses Not on filedocumented in this encounter
--- OUTSIDE RECORDS SUMMARY | 2022-05-22 16:02 | XMS_ITS | Encounter Summary ---
:1965 Author Organization [facility] Address [address] [place] [address] Care Team Providers Name Role Phone Unavailable Primary Care Provider Unavailable Reason for Referral Outpatient (Routine) - Closed Specialty Diagnoses / Procedures Referred By Contact Refer red To Contact Hematology Diagnoses Lymphopenia Anemia Landon Bal M.D. [place] [address] [place] [address] Referral ID Status Reason Start Date Expiration Date Visits Requ ested Visits Authorized [id number] Closed 02/14/2021 02/14/2022 1 1 Encounter Details Date Type Department Care Team Description 02/14/2021 Orders Only Division of Rheumatology Landon Bal Lymphopenia (Primary Dx); in [facility] ki [place] Anemia [address] [place] [phone] Social History Tobacco Use Types Packs/Day [...] How often do you attend samaritan or mormonism services? Never 09/23/2021 Do you [...] Description 07/08/2022 Appointment Laboratory Medicine Pedro Donnelly, AUTOMOBILE BODY REPAIR SUPERVISOR, C.N.P. [address] [place] [phone] (Claudia vera) 07/08/2022 Office Visit Gastroenterology and Collin Trivedi Hepatology [place] [address] [place] [address] (Claudia vera) Scheduled Referrals Name Type Priority Associated Order Schedule Diagnoses Hematology - General Outpatient Referral Routine Lymphop enia Expected: consult (clinic) Anemia 02/14/2021 (Approximate), Expires: 02/15/2024 documented as of this encounter Visit Diagnoses Diagnosis Lymphopenia - Primary Anemia documented in this encounter
--- OUTSIDE RECORDS SUMMARY | 2022-05-22 16:02 | XMS_ITS | Encounter Summary ---
:1965 Author Organization [facility] Address [address] [place] [address] Care Team Providers Name Role Phone Unavailable Primary Care Provider Unavailable Encounter Details Date Type Department Care Team Description 11/22/2020 Hospital Encounter Department of [place], Lupus Sy [facility] Laboratory Medicine James Costello. Erythematosus (HCC) and Pathology, [address] [place] [address] in [facility] [address] [place] [phone] [place] [address] (Work) [place], [place] [phone] [address] (Fax) [phone] Social History Tobacco Use Types Packs/Day Years [...] er 09/23/2021 How often do you attend baptist or episcopalian services? Never 09/23/2021 Do you belong to any clubs or organizations such as No 09/23/2021 baptist groups, unions, fraternal or athletic groups, or [...] Description 07/08/2022 Appointment Laboratory Medicine Pedro Donnelly, LICENSED SURVEYOR, C.N.P. [address] [place] [address] (Wo rk) 07/08/2022 Office Visit Gastroenterology and Collin Trivedi, Hepatology Chloe [address] [place] [phone] (Wo rk) documented as of this encounter Procedures Procedure Name Priority Date/Time Associated Diagnosis Comme nts MIS RESEARCH Routine 11/22/2020 2:37 PM Lupus Systemic Result s for this ORDER, B CDT Erythematosus (HCC) procedur e are in the results section. documented in this encounter Results Miscellaneous Research, B (11/22/2020 2:37 PM CDT) athologist Signature Number of 5 11/22/2020 HSS Specimens 2:37 PM CDT Specimen Anatomical Collection Method Collection Time Receive d Time (Source) Location / / Volume Laterality Varies (Blood, 11/22/2020 2:37 PM 021 2:37 Venous) CDT PM CDT Magdy Ni M.D. LAB RESEARCH NO RESULT ANDREA HERNÁNDEZ Performing Organization Address City/State/ZIP Code Phon e Number [facility] - [address] [place], [place] [address] [facility] [address] Laboratories-[facility] [address] documented in this encounter Visit Diagnoses Diagnosis Lupus Systemic Erythematosus (HCC) documented in this encounter
--- OUTSIDE RECORDS SUMMARY | 2022-05-22 16:02 | XMS_ITS | Encounter Summary ---
:1965 Author Organization [facility] Address [address] [place] [address] Care Team Providers Name Role Phone Unavailable Primary Care Provider Unavailable Encounter Details Date Type Department Care Team Description 11/22/2020 Orders Only Division of Gadiel Onomah, Lupus Systemic Rheumatology in [place] Erythematosus (HCC) [place], [place] [phone] (Primary Dx) [address] [facility] (Work) [place] [address] Social History Tobacco Use Types Packs/Day Years [...] er 09/23/2021 How often do you attend latter-day or gnosticist services? Never 09/23/2021 Do you belong to any clubs or organizations such as No 09/23/2021 latter-day groups, unions, fraternal or athletic groups, or [...] Description 07/08/2022 Appointment Laboratory Medicine Pedro Donnelly, REGULATORY SUBMISSIONS SPECIALIST, C.N.P. [address] [place] [phone] (Wo rk) 07/08/2022 Office Visit Gastroenterology and Collin Trivedi, Hepatology [place] [address] [place] [phone] (Wo rk) documented as of this encounter Results Miscellaneous Research, B (11/22/2020 2:37 PM CDT) athologist Signature Number of 5 11/22/2020 [facility] Specimens 2:37 PM CDT Specimen Anatomical Collection Method Collection Time Receive d Time (Source) Location / / Volume Laterality Varies (Blood, 11/22/2020 2:37 PM 021 2:37 Venous) CDT PM CDT Magdy Ni M.D. LAB RESEARCH NO RESULT ANDREA HERNÁNDEZ Performing Organization Address City/State/ZIP Code Phon e Number [facility] - [address] [place] [address] [place] [address] Laboratories-[address] documented in this encounter Visit Diagnoses Diagnosis Lupus Systemic Erythematosus (HCC) - Afia vinh documented in this encounter
--- OUTSIDE RECORDS SUMMARY | 2022-05-22 16:03 | XMS_ITS | Encounter Summary ---
:1965 Author Organization [facility] Address [address] [place] [address] Care Team Providers Name Role Phone Unavailable Primary Care Provider Unavailable Encounter Details Date Type Department Care Team Description 10/23/2020 Orders Only Division of Rheumatology in [facility], Landon Mosher M.D. [place], [place] [address] [place] [address] Social History Tobacco Use Types Packs/Day [...] often do you attend latter day or mormonism services? Never 09/23/2021 Do you [...] Description 07/08/2022 Appointment Laboratory Medicine Pedro Donnelly, WIRE BASKET MAKER, C.N.P. [address] [place] [phone] (Claudia vera) 07/08/2022 Office Visit Gastroenterology and Collin Trivedi, Hepatology M.DSarina [address] [place] [phone] (Claudia vera) documented as of this encounter Visit Diagnoses Not on filedocumented in this encounter
--- OUTSIDE RECORDS SUMMARY | 2022-05-22 16:03 | XMS_ITS | Encounter Summary ---
:1965 Author Organization [facility] Address [address] [place] [address] Care Team Providers Name Role Phone Unavailable Primary Care Provider Unavailable Encounter Details Date Type Department Care Team Description 10/19/2020 Orders Only Division of Robbie Turner Ther caitlin Wynne Rheumatology in [place] Ramirez, RSarinaN. Term Not Anticoagulant [place], [place] [address] [facility] (Primary Dx) [address] [place] [phone] Social History Tobacco Use Types Packs/Day Years [...] How often do you attend worship or cheondoism services? Never 09/23/2021 Do you belong to [...] place to sleep or slept in a longterm (including now)? Education Answer Date Recorded What is the highest level of school you have completed or 12 th grade 06/17/2019 the highest degree you have received? Sex Assigned at Date Recorded Female 03/09/2018 3:30 PM CDT documented as of this encounter Plan of Treatment Upcoming Encounters Date Type Specialty Care Team Description 07/08/2022 Appointment Laboratory Medicine Pedro Donnelly, ANTHONY, C.N.P. [address] [place] [phone] (Wo rk) 07/08/2022 Office Visit Gastroenterology and Collin Trivedi, Hepatology M.Juan [address] [place] [phone] (Wo rk) documented as of this encounter Results (ABNORMAL) CBC with Differential, Blood (11/07/2020 10:02 AM SUPERINTENDENT LOCAL) [facility] Method Time Signature Hemoglobin 11.3 (L) 11.6 - 11/07/2020 OWAT 15.0 g/dL 1:33 PM SUPERINTENDENT LOCAL Hematocrit 34.2 (L) 35.5 - 11/07/2020 OW[place] 44.9 % 1:33 PM SUPERINTENDENT LOCAL Erythrocytes 3.71 (L) 3.92 - 11/07/2020 OW[place] 5.13 1:33 PM SUPERINTENDENT LOCAL x10(12)/L MCV 92.2 78.2 - 11/07/2020 OW[place] 97.9 fL 1:33 PM SUPERINTENDENT LOCAL RBC Distrib Width 16.0 12.2 - 11/07/2020 OWAT 16.1 % 1:33 PM SUPERINTENDENT LOCAL Platelet Count 148 (L) 157 - 371 11/07/2020 OW[place] x10(9)/L 1:33 PM SUPERINTENDENT LOCAL Leukocytes 4.3 3.4 - 9.6 11/07/2020 OW[place] x10(9)/L 1:33 PM SUPERINTENDENT LOCAL Neutrophils 3.23 1.56 - 11/07/2020 OWAT 6.45 1:33 PM SUPERINTENDENT LOCAL x10(9)/L Lymphocytes 0.59 (L) 0.95 - 11/07/2020 OWAT 3.07 1:33 PM SUPERINTENDENT LOCAL x10(9)/L Monocytes 0.38 0.26 - 11/07/2020 OWAT 0.81 1:33 PM SUPERINTENDENT LOCAL x10(9)/L Eosinophils 0.04 0.03 - 11/07/2020 OWAT 0.48 1:33 PM SUPERINTENDENT LOCAL x10(9)/L Basophils 0.01 0.01 - 11/07/2020 OWAT 0.08 1:33 PM SUPERINTENDENT LOCAL x10(9)/L Specimen Anatomical Collection Method Collection Time Receive d Time (Source) Location / / Volume Laterality Blood (Blood, 11/07/2020 10:02 11/07/2020 Venous) AM SUPERINTENDENT LOCAL 10:03 AM SUPERINTENDENT LOCAL Landon Bal M.D. LAB BLOOD ADD-ON Performing Organization Address City/State/ZIP Code Phon e Number [facility]- [address] [place] [address] [facility] [place] [address] System in [place] [address] documented in this encounter Visit Diagnoses Diagnosis Medication Therapy Glass Cleaner Not Anticoa gulant - Primary documented in this encounter
--- OUTSIDE RECORDS SUMMARY | 2022-05-22 16:03 | XMS_ITS | Encounter Summary ---
:1965 Author Organization [facility] Address [address] [place] [address] Care Team Providers Name Role Phone Unavailable Primary Care Provider Unavailable Encounter Details Date Type Department Care Team Description 11/22/2020 Hospital Encounter Department of Moder, Landon Lupus [facility] Laboratory Medicine Chloe Mosher ([facility]) and Pathology, [facility] in [place], [place] [address] [place] [address] Social History Tobacco Use Types Packs/Day Years [...] How often do you attend restorationism or mormon services? Never 09/23/2021 Do you belong to [...] Description 07/08/2022 Appointment Laboratory Medicine Pedro Donnelly, TRIAL ATTORNEY, C.N.P. [address] [place] [phone] (Claudia vera) 07/08/2022 Office Visit Gastroenterology and Collin Trivedi Hepatology MAyala [address] [place] [phone] (Wo rk) documented as of this encounter Procedures Procedure Name Priority Date/Time Associated Diagnosis Comme nts MICROSCOPIC Routine 11/22/2020 10:31 Results for this AUTOMATED AM CDT procedure are i n the results section. URINALYSIS WITH Routine 11/22/2020 10:31 Lupus Systemic Result s for this MICROSCOPIC AM CDT Erythematosus (HCC) procedur e are in the results section. documented in this encounter Results (ABNORMAL) Microscopic Automated (11/22/2020 10:31 AM CDT) P athologist Signature Microscopy Abnormal 11/22/2020 [place] 12:38 PM CDT RBC <3 <3 /hpf 11/22/2020 [facility] 12:38 PM CDT WBC 4-10 /hpf 11/22/2020 [facility] 12:38 PM CDT Comment: ----REFERENCE VALUE---- 1-3 ??(Males) 1-10 (Females) Squamous Epithelial Cells, U 1-3 /hpf 11/22/2020 12:38 PM CDT [facility] Bacteria Present (A) 11/22/2020 12:38 PM CDT [facility] Specimen Anatomical Collection Method Collection Time Receive d Time (Source) Location / / Volume Laterality Urine 11/22/2020 10:31 11/22/2020 AM CDT 10:31 AM CDT Landon Bal M.D. LAB URINE ORDERABLES Performing Organization Address City/State/ZIP Code Phon e Number [facility] - [address] [place] [phone] [facility] [place] [address] Laboratories-[facility] [address] [facility] [address] Urinalysis with Microscopic: Urine, Midstream (11/22/2020 10:31 AM CDT) [facility] Method Time Signature Source Midstream 11/22/2020 [facility] 10:31 AM CDT Appearance Normal Normal 11/22/2020 [facility] 11:50 AM CDT Osmolality, U 637 150 - 1150 11/22/2020 [facility] mOsm/kg 11:30 AM CDT pH, U 5.0 4.5 - 8.0 11/22/2020 [facility] 11:30 AM CDT Comment: ----ADDITIONAL INFORMATION---- This test was developed and its performa nce characteristics determined by [facility] in a manner co nsistent with CLIA requirements. This test has not bee n cleared or approved by the U.S. Food and Drug Admin istration. Glucose 2 0 - 15 mg/dL 11/22/2020 11:50 AM CDT DTL Protein, U 8 <26 mg/dL 11/22/2020 11:50 AM CDT DTL Comment: ----ADDITIONAL INFORMATION---- On 03/03/2017 the total protein assay me thod changed resulting in approximately a 15% increase in prote in values. Protein/Osmolality 0.13 <0.42 Ratio 11/22/2020 11:50 AM CDT DTL Comment: ----ADDITIONAL INFORMATION---- On 03/03/2017 the total protein assay me thod changed resulting in approximately a 15% increase in prote in values. Predicted 24 Hr Protein 102 mg/24 h 11/22/2020 11:50 AM CDT DTL Predicted Range 25-412 mg/24 h 11/22/2020 11:50 AM CDT DTL Hemoglobin, QL Negative Negative 11/22/2020 12:38 PM CDT R LAURENT Specimen Anatomical Collection Method Collection Time Receive d Time (Source) Location / / Volume Laterality Urine (Urine, 11/22/2020 10:31 11/22/2020 Midstream) AM CDT 10:31 AM CDT Landon Bal M.D. LAB URINE ORDERABLES Performing Organization Address City/State/ZIP Code Phon e Number [facility] - [address] [place], [place] [address] [facility] [place] [address] Laboratories-[facility] [address] [place] [address] [facility] [address] documented in this encounter Visit Diagnoses Diagnosis Lupus Systemic Erythematosus (HCC) documented in this encounter
--- OUTSIDE RECORDS SUMMARY | 2022-05-22 16:03 | XMS_ITS | Encounter Summary ---
:1965 Author Organization [facility] Address [address] [place] [address] Care Team Providers Name Role Phone Unavailable Primary Care Provider Unavailable Encounter Details Date Type Department Care Team Description 10/19/2020 Orders Only Division of Gastroenterology Yony Joseph, in [facility] ki [place] [address] [facility] [address] [place] [address] [place], [place] [phone] (Wo rk) Social History Tobacco Use Types [...] How often do you attend zoroastrian or taoist services? Never 09/23/2021 Do you [...] Description 07/08/2022 Appointment Laboratory Medicine Pedro Donnelly, SERVICE CENTER TECHNICIAN, C.N.P. [address] [place] [phone] (Wo rk) 07/08/2022 Office Visit Gastroenterology and Collin Trivedi, Hepatology MSarinaDSarina [address] [place] [phone] (Wo rk) documented as of this encounter Visit Diagnoses Not on filedocumented in this encounter
--- OUTSIDE RECORDS SUMMARY | 2022-05-22 16:03 | XMS_ITS | Encounter Summary ---
:1965 Author Organization [facility] Address [address] [place] [address] Care Team Providers Name Role Phone Unavailable Primary Care Provider Unavailable Reason for Referral Outpatient (Routine) - Closed Specialty Diagnoses / Procedures Referred By Contact Refer red To Contact Diagnoses Lupus Systemic Erythematosus (HCC) Landon Bal M.D. [address] [phone] Referral ID Status Reason Start Date Expiration Date Visits Requ ested Visits Authorized [id number] Closed 10/19/2020 10/19/2021 1 1 utpatient (Routine) - Closed Specialty Diagnoses / Procedures Referred By Contact Refer red To Contact Rheumatology Landon Bal M.D. [address] [phone] Referral ID Status Reason Start Date Expiration Date Visits Requ ested Visits Authorized [id number] Closed 10/19/2020 10/19/2021 1 1 NISTRATIVE FELLOW Reason for Visit Outpatient (Routine) - Closed Specialty Diagnoses / Procedures Referred By Contact Refer red To Contact Landon Bal M.D. [address] [phone] Referral ID Status Reason Start Date Expiration Date Visits Requ ested Visits Authorized [id number] Closed 08/23/2020 08/23/2021 1 1 Encounter Details Date Type Department Care Team Description 10/19/2020 Office Visit Division of Landon Bal, Elevated Sed imentation Rate (Primary Dx); Rheumatology in [place].Juan Lupus System ic Erythematosus (HCC) [address] [place] [address] Social History Tobacco Use Types Packs/Day Years [...] How often do you attend taoism or restorationist services? Never 09/23/2021 Do you [...] Sign Reading Time Taken Comments Blood Pressure 141/69 10/19/2020 3:21 PM ADMINISTRATIVE FELLOW Pulse 89 10/19/2020 3:21 PM ADMINISTRATIVE FELLOW Temperature 37.1 ??C (98.8 ??F) 10/19/2020 3:21 PM ADMINISTRATIVE FELLOW Respiratory Rate - - Oxygen Saturation - - Inhaled Oxygen Concentration - - Weight 106 kg (234 lb 2.1 oz) 10/19/2020 3:21 PM ADMINISTRATIVE FELLOW Height 163.5 cm (5' 4.37) 10/19/2020 3:21 PM ADMINISTRATIVE FELLOW Body Mass Index 39.73 10/19/2020 3:21 PM ADMINISTRATIVE FELLOW documented in this encounter Progress Notes Landon Bal M.D. - 10/19/2020 3:00 PM CST Patient is a 55-year-old female who returns for follow-up of lupus. I had a phone visit with patient last year but because the pandemic we did not see her [id number]. Patient reports she is feeling very poorly. She is having quite a bit of arthralgias and myalgias. Patient's blood counts were a bit low and we had a reduce her azathioprine from 200 per day to 150 which she is currently taking now. Interviewed exam the patient. On exam lungs are clear heart had a regular rate rhythm abdominal examdid not reveal hepatosplenomegaly masses or tenderness exam extremities revealed no evidence of active synovitis. She did have some trace lower extremity edema. Assessment 1 SLE. Clinically patient feels she is doing very poorly. I note her sed rate is markedlyelevated. In reviewing records her sed rate was initially elevated but then came back to normal but now for the past several visits has been markedly elevated again. It is possible azathioprine could be losing its effect. I would like to get a SPEP and CRP hopefullyoff the stored serum today. I discussed with the patient the option of substituting mycophenolate for the azathioprine. I think it would be best to avoid methotrexate and Arava given the have some hepatotoxicity and the patient has underlying liver disease. In the short term I would suggest starting prednisone 5 mg twice per day and of Center in a prescription for this. 2. Liver disease. Patient is visiting with our colleagues in Gastroenterology later today. If they are agreeable with starting CellCept we can send her prescription next week. 3. Interstitial lung disease. Patient is not having a pulmonary symptoms and her lungs are clear. Atthis point she does not desire an additional testing for this. Patient also indicated that she prefers to avoid use of Plaquenil given expands and the potential for ocular toxicity. Patient will send me a portal message next week and let me know how she is doing with the prednisoneand we can hopefully get this CellCept started. She understands not to take the CellCept with the azathioprine but she should not stop the azathioprine until she has the CellCept prescription filled. I will set her up for some Education on the mycophenolate and also set up blood monitoring for this. I would like see the patient back in a month or 2 to review the situation. We will likely start 500 mg once per day the 1st week and then increase to 500 twice per day. I discussed the above with patient answered her questions she seemed pleased with interaction. 25 minutes NISTRATIVE FELLOW documented in this encounter Plan of Treatment Upcoming Encounters Date Type Specialty Care Team Description 07/08/2022 Appointment Laboratory Medicine Pedro Donnelly, INTELLECTUAL PROPERTY PARALEGAL, C.N.P. [address] [place] [phone] (Claudia vera) 07/08/2022 Office Visit Gastroenterology and Collin Trivedi Hepatology Chloe [address] [place] [phone] (Claudia vera) Scheduled Referrals Name Type Priority Associated Diagnoses Order S [facility] Rheumatology office Outpatient Routine Expected : visit (clinic) Referral 11/16/2020 (Approximate), Expires: 10/19/2023 Medication monitoring Outpatient Routine Lupus Systemic Orde red: Referral Erythematosus (HCC) 10/19/19 21 documented as of this encounter Results Urinalysis with Microscopic: Urine, Midstream (11/22/2020 10:31 AM CDT) [facility] Method Time Signature Source Midstream 11/22/2020 [facility] 10:31 AM CDT Appearance Normal Normal 11/22/2020 [facility] 11:50 AM CDT Osmolality, U 637 150 - 1150 11/22/2020 [facility] mOsm/kg 11:30 AM CDT pH, U 5.0 4.5 - 8.0 11/22/2020 [facility] 11:30 AM CDT Comment: ----ADDITIONAL INFORMATION---- This test was developed and its performa nce characteristics determined by [facility] in a manner co nsistent with [...] M.D. LAB URINE ORDERABLES Performing Organization Address City/[facility]/RUST Code Phon e Number [facility] - [address] [place], [place] [address] [facility] [place] [address] [facility] [address] [place] [address] [facility] [address] (ABNORMAL) Complement C4 (11/22/2020 9:55 AM CDT) [...] Organization Address City/State/ZIP Code Phon e Number [facility] [address] [place], [place] [address] [facility] [address] Laboratory Medicine and Pathology [address] [place] [address] Dr. CACERES Complement C3 (11/22/2020 9:55 AM CDT) athologist Signature Complement C3, S 87 75 - 175 11/22/2020 [facility] mg/dL 1:10 PM CDT Specimen Anatomical Collection Method Collection Time Receive d Time (Source) Location / / Volume Laterality Blood (Blood, 11/22/2020 9:55 AM 11/23/19 Venous) CDT 12:17 PM CDT Landon Bal M.D. LAB BLOOD ADD-ON Performing Organization Address City/[facility]/ZIP Code Phon e Number [address] [place] [address] [facility] [place] [address] Laboratory Medicine and Pathology [address] [place] [address] Dr. CACERES DNA Double-Stranded (dsDNA) Antibodies with Reflex, IgG (11/22/2020 9:55 AM CDT) athologist Signature DNA 21.0 <30.0 11/22/2020 [facility] Double-Stranded (Negative) 6:34 PM CDT AB, IgG, S IU/mL Comment: Negative for dsDNA antibody by enzyme im munoassay. No further testing recommended. Specimen Anatomical Collection Method Collection Time Receive d Time (Source) Location / / Volume Laterality Blood (Blood, 11/22/2020 9:55 AM 11/23/19 Venous) CDT 12:21 PM CDT Landon Bal M.D. LAB BLOOD ADD-ON Performing Organization Address City/State/ZIP Code Phon e Number [place] [phone] [place], [place] [address] [facility] [place] [address] Laboratory Medicine and Pathology [address] [place] [address] Dr. CACERES AST (Aspartate Aminotransferase) (11/22/2020 9:55 AM CDT) Patholo gist Method Time Signature Aspartate 21 8 - 43 11/22/2020 [facility] Aminotransferase U/L 11:00 AM CDT (AST), S Specimen Anatomical Collection Method Collection Time Receive d Time (Source) Location / / Volume Laterality Blood (Blood, 11/22/2020 9:55 AM 11/23/19 Venous) CDT 10:18 AM CDT Landon Bal M.D. LAB BLOOD ADD-ON Performing Organization Address City/[facility]/RUST Code Phon e Number [facility] - [address] [place], [place] [address] [facility] [place] [place] [address] Laboratories-[address] (ABNORMAL) Creatinine with Estimated GFR (11/22/2020 9:55 AM CDT) Analysis Performed At Patho logist Time Signature Creatinine 1.23 (H) 0.59 - 11/22/2020 [facility] 1.04 mg/dL 11:00 AM CDT eGFR-Non 49 (L) >=60 11/22/2020 [facility] Black/ mL/min/BSA 11:00 AM CDT Israeli Comment: ----ADDITIONAL INFORMATION---- Estimated GFR calculated using [...] M.D. LAB BLOOD ADD-ON Performing Organization Address City/[facility]/ZIP Code Phon e Number [facility] - [address] [place], [place] [address] [facility] [place] [place] [address] Laboratories-[address] CRP (C-Reactive Protein) (11/22/2020 9:55 AM CDT) P athologist Signature C-Reactive 5.5 <=8.0 mg/L 11/22/2020 [facility] Protein (CRP), 11:00 AM CDT S Specimen Anatomical Collection Method Collection Time Receive d Time (Source) Location / / Volume Laterality Blood (Blood, 11/22/2020 9:55 AM 11/23/19 21 Venous) CDT 10:18 AM CDT Landon Bal M.D. LAB BLOOD ADD-ON Performing Organization Address City/[facility]/ZIP Code Phon e Number [facility] - [address] [place] [phone] [facility] [place] [address] [address] (ABNORMAL) Sedimentation Rate (11/22/2020 9:55 AM CDT) [facility] Method Time Signature Sedimentation 108 (H) 2 - 22 11/22/2020 [facility] Rate, B mm/h 6:07 PM CDT Specimen Anatomical Collection Method Collection Time Receive d Time (Source) Location / / Volume Laterality Blood (Blood, 11/22/2020 9:55 AM 11/23/19 Venous) CDT 10:39 AM CDT Landon Bal M.D. LAB BLOOD ADD-ON Performing Organization Address [facility] Phon e Number [facility] - [address] (ABNORMAL) CBC with Differential, Blood (11/22/2020 9:55 AM CDT) [facility] Method Time Signature Hemoglobin 12.0 11.6 - [...] M.D. LAB BLOOD ADD-ON Performing Organization Address City/[facility] Phon e Number [facility] - [address] (ABNORMAL) CRP (C-Reactive Protein) (10/19/2020 7:55 AM ADMINISTRATIVE FELLOW) P athologist Signature C-Reactive 10.0 (H) <=8.0 mg/L 10/22/2020 D[facility] Protein (CRP), 1:12 PM ADMINISTRATIVE FELLOW S Specimen Anatomical Collection Method Collection Time Receive d Time (Source) Location / / Volume Laterality Blood (Blood, 10/19/2020 7:55 AM 10/22/19 21 Venous) ADMINISTRATIVE FELLOW 12:52 PM ADMINISTRATIVE FELLOW Landon Bal M.D. LAB BLOOD ADD-ON Performing Organization Address City/[facility] Phon e Number [facility] [address] documented in this encounter Visit Diagnoses Diagnosis Elevated Sedimentation Rate - Primary Lupus Systemic Erythematosus (HCC) documented in this encounter
--- OUTSIDE RECORDS SUMMARY | 2022-05-22 16:03 | XMS_ITS | Encounter Summary ---
:1965 Author Organization [facility] Address [address] [place] [address] Care Team Providers Name Role Phone Unavailable Primary Care Provider Unavailable Encounter Details Date Type Department Care Team Description 10/19/2020 Hospital Encounter Department of Moder, Landon Otero rrhosis Of Liver (HCC); Laboratory Medicine Chloe Mosher Lupus Sy stemic Erythematosus (HCC); and Pathology, Screening [facility], in [place], [place] [address] [place] [address] Social History Tobacco Use Types Packs/Day Years [...] er 09/23/2021 How often do you attend zoroastrianism or rastafari services? Never 09/23/2021 Do you belong to any clubs or organizations such as No 09/23/2021 zoroastrianism groups, unions, fraternal or athletic groups, or [...] mouth daily. (PRINZIDE,ZESTORETIC) 20-25 mg per tablet azaTHIOprine (IMURAN) 50 Take 4 tablets (200 360 tablet 1 11/22/2020 mg tablet mg total) by mouth daily. azaTHIOprine (IMURAN) 50 TAKE 4 TABLETS BY 360 tablet 1 09/0711/22/2020 mg tablet MOUTH DAILY. LABS NEEDED FOR REFILLS omeprazole (PriLOSEC) 40 TAKE 1 CAPSULE BY 90 capsule 2 06/0811/27/[address] capsule MOUTH EVERY DAY pravastatin (PRAVACHOL) TAKE 1 TABLET BY 90 tablet 3 201909/03/2021 40 mg tablet MOUTH EVERY DAY valacyclovir HCl 0 12/07/2019 03/25/20 21 (VALACYCLOVIR ORAL) documented as of this encounter Plan of Treatment Upcoming Encounters Date Type Specialty Care Team Description 07/08/2022 Appointment Laboratory Medicine Pedro Donnelly, ANDROID PLATFORM DEVELOPER, C.N.P. [address] [place] [address] [phone] (Claudia vera) 07/08/2022 Office Visit Gastroenterology and Collin Trivedi Hepatology MAyala [address] [place] [address] [phone] (Wo rk) documented as of this encounter Procedures Procedure Name Priority Date/Time Associated Diagnosis Comme nts SEDIMENTATION RATE, B Routine 10/19/2020 8:04 Lupus Systemic R esults for this AM SUB ACUTE CARE NURSE Erythematosus (HCC) procedur e are in the results section. PROTHROMBIN TIME Routine 10/19/2020 8:04 Other Cirrhosis Of Re sults for this (PT), P AM SUB ACUTE CARE NURSE Liver (HCC) procedure are i n the results section. CBC WITH Routine 10/19/2020 8:04 Other Cirrhosis Of Result s for this DIFFERENTIAL, B AM SUB ACUTE CARE NURSE Liver (HCC) procedure ar e in the results section. COMPL C3, S Routine 10/19/2020 8:04 Lupus Systemic Results fo r this AM SUB ACUTE CARE NURSE Erythematosus (HCC) procedur e are in the results section. COMPLEMENT C4, S Routine 10/19/2020 8:04 Lupus Systemic Result s for this AM SUB ACUTE CARE NURSE Erythematosus (HCC) procedur e are in the results section. COMPREHENSIVE Routine 10/19/2020 8:04 Other Cirrhosis Of Resul ts for this METABOLIC PANEL, S/P AM SUB ACUTE CARE NURSE Liver (HCC) procedu re are in the results section. DNA DOUBLE-STRANDED Routine 10/19/2020 8:03 Lupus Systemic Res ults for this (DSDNA) ABS, IGG, S AM SUB ACUTE CARE NURSE Erythematosus (HCC) p rocedure are in the results section. GLUCOSE, FASTING, S/P Routine 10/19/2020 8:03 Screening Condit ion Results for this AM SUB ACUTE CARE NURSE procedure are i n the results section. documented in this encounter Results (ABNORMAL) Complement C4 (10/19/2020 8:04 AM SUB ACUTE CARE NURSE) athologist Signature Complement C4, S 4 (L) 14 - 40 10/19/2020 [facility] mg/dL 12:10 PM SUB ACUTE CARE NURSE Specimen Anatomical Collection Method Collection Time Receive d Time (Source) Location / / Volume Laterality Blood (Blood, 10/19/2020 8:04 AM 10/19/19 21 Venous) SUB ACUTE CARE NURSE 11:04 AM SUB ACUTE CARE NURSE Landon Bal M.D. LAB BLOOD ADD-ON Performing Organization Address City/State/ZIP Code Phon e Number [facility] [address] [place], [place] [address] [facility] [place] [address] Laboratory Medicine and Pathology [address] [place] Complement C3 (10/19/2020 8:04 AM SUB ACUTE CARE NURSE) athologist Signature Complement C3, S 84 75 - 175 10/19/2020 [facility] mg/dL 11:57 AM SUB ACUTE CARE NURSE Specimen Anatomical Collection Method Collection Time Receive d Time (Source) Location / / Volume Laterality Blood (Blood, 10/19/2020 8:04 AM 10/19/19 21 Venous) SUB ACUTE CARE NURSE 11:04 AM SUB ACUTE CARE NURSE Landon Bal M.D. LAB BLOOD ADD-ON Performing Organization Address City/State/ZIP Code Phon e Number [facility] [address] [place], [place] [address] [facility] [place] [address] Laboratory Medicine and Pathology [address] [place] [address] Dr. CAC[place] (ABNORMAL) Sedimentation Rate (10/19/2020 8:04 AM SUB ACUTE CARE NURSE) [facility] Method Time Signature Sedimentation 112 (H) 2 - 22 10/19/2020 DTL Rate, B mm/h 9:27 AM SUB ACUTE CARE NURSE Specimen Anatomical Collection Method Collection Time Receive d Time (Source) Location / / Volume Laterality Blood (Blood, 10/19/2020 8:04 AM 10/19/19 21 8:27 Venous) SUB ACUTE CARE NURSE AM SUB ACUTE CARE NURSE Landon Bal M.D. LAB BLOOD ADD-ON Performing Organization Address City/[facility]/ZIP Code Phon e Number [facility] - [address] [place] [address] [facility] [place] [address] [facility] 200 [facility] (ABNORMAL) CBC with Differential, Blood (10/19/2020 8:04 AM SUB ACUTE CARE NURSE) [facility] Method Time Signature Hemoglobin 10.6 (L) 11.6 - 10/19/2020 DTL 15.0 g/dL 8:37 AM SUB ACUTE CARE NURSE Hematocrit 31.7 (L) 35.5 - 10/19/2020 DTL 44.9 % 8:37 AM SUB ACUTE CARE NURSE Erythrocytes 3.39 (L) 3.92 - 10/19/2020 DTL 5.13 8:37 AM SUB ACUTE CARE NURSE x10(12)/L MCV 93.5 78.2 - 10/19/2020 DTL 97.9 fL 8:37 AM SUB ACUTE CARE NURSE RBC Distrib Width 15.1 12.2 - 10/19/2020 DTL 16.1 % 8:37 AM SUB ACUTE CARE NURSE Platelet Count 134 (L) 157 - 371 10/19/2020 DTL x10(9)/L 8:37 AM SUB ACUTE CARE NURSE Leukocytes 4.1 3.4 - 9.6 10/19/2020 DTL x10(9)/L 8:37 AM SUB ACUTE CARE NURSE Neutrophils 3.42 1.56 - 10/19/2020 DTL 6.45 8:37 AM SUB ACUTE CARE NURSE x10(9)/L Lymphocytes 0.47 (L) 0.95 - 10/19/2020 DTL 3.07 8:37 AM SUB ACUTE CARE NURSE x10(9)/L Monocytes 0.18 (L) 0.26 - 10/19/2020 DTL 0.81 8:37 AM SUB ACUTE CARE NURSE x10(9)/L Eosinophils 0.04 0.03 - 10/19/2020 DTL 0.48 8:37 AM SUB ACUTE CARE NURSE x10(9)/L Basophils <0.03 0.01 - 10/19/2020 DTL 0.08 8:37 AM SUB ACUTE CARE NURSE x10(9)/L Specimen Anatomical Collection Method Collection Time Receive d Time (Source) Location / / Volume Laterality Blood (Blood, 10/19/2020 8:04 AM 10/19/19 21 8:27 Venous) SUB ACUTE CARE NURSE AM SUB ACUTE CARE NURSE James Joseph M.D. LAB BLOOD ADD-ON Performing Organization Address City/State/ZIP Code Phon e Number [facility] - [address] [place] [phone] [facility] [place] [address] [facility] 200 [facility] Prothrombin Time (PT) (10/19/2020 8:04 AM SUB ACUTE CARE NURSE) P athologist Signature Prothrombin 12.0 9.4 - 12.5 10/19/2020 DTL Time, P sec 8:44 AM SUB ACUTE CARE NURSE INR 1.1 0.9 - 1.1 10/19/2020 DTL 8:44 AM SUB ACUTE CARE NURSE Comment: ----ADDITIONAL INFORMATION---- Standard intensity warfarin therapeutic range: 2.0 to 3.0 ?? High intensity warfarin therapeutic rang e: 2.5 to 3.5 Specimen Anatomical Collection Method Collection Time Receive d Time (Source) Location / / Volume Laterality Blood (Blood, 10/19/2020 8:04 AM 10/19/19 8:27 Venous) SUB ACUTE CARE NURSE AM SUB ACUTE CARE NURSE James Joseph M.D. LAB BLOOD ADD-ON Performing Organization Address City/State/ZIP Code Phon e Number [facility] - [address] [place], [place] [address] [facility] [place] [address] [facility] [address] (ABNORMAL) Comprehensive Metabolic Panel (10/19/2020 8:04 AM SUB ACUTE CARE NURSE) Analysis Performed At Patho logist Time Signature Potassium, S 4.2 3.6 - 5.2 10/19/2020 DTL mmol/L 9:04 AM SUB ACUTE CARE NURSE Sodium, S 140 135 - 145 10/19/2020 DTL mmol/L 9:04 AM SUB ACUTE CARE NURSE Chloride, S 104 98 - 107 10/19/2020 DTL mmol/L 9:04 AM SUB ACUTE CARE NURSE Bicarbonate, S 25 22 - 29 10/19/2020 DTL mmol/L 9:04 AM SUB ACUTE CARE NURSE Anion Gap 11 7 - 15 10/19/2020 DTL 9:04 AM SUB ACUTE CARE NURSE BUN (Blood Urea 26 (H) 6 - 21 10/19/2020 DTL Nitrogen), S mg/dL 9:04 AM SUB ACUTE CARE NURSE Creatinine 1.24 (H) 0.59 - 10/19/2020 DTL 1.04 mg/dL 9:04 AM SUB ACUTE CARE NURSE eGFR-Non 49 (L) >=60 10/19/2020 DTL Black/ mL/min/BSA 9:04 AM SUB ACUTE CARE NURSE [place] Comment: ----ADDITIONAL INFORMATION---- Estimated GFR calculated using the 2009 CKD_EPI creatinine equation. eGFR-Black/ 56 (L) >=60 mL/min/BSA 2020 9:04 AM SUB ACUTE CARE NURSE DTL Comment: ----ADDITIONAL INFORMATION---- Estimated GFR calculated using the 2009 CKD_EPI creatinine equation. Calcium, Total, S 9.3 8.6 - 10.0 mg/dL 10/19/2020 9:04 AM SUB ACUTE CARE NURSE DTL Glucose, S CANCELED mg/dL 10/19/2020 8:27 AM SUB ACUTE CARE NURSE DTL Comment: Test not performed. See Fasting Glucose result. Result canceled by the ancillary. Protein, Total, S 7.6 6.3 - 7.9 g/dL 10/19/2020 9:04 A M SUB ACUTE CARE NURSE DTL Albumin, S 4.3 3.5 - 5.0 g/dL 10/19/2020 9:04 AM SUB ACUTE CARE NURSE D TL Aspartate Aminotransferase (AST), S 18 8 - 43 U/L 08/2021 9:04 AM SUB ACUTE CARE NURSE DTL Alkaline Phosphatase, S 86 35 - 104 U/L 10/19/2020 9: 04 AM SUB ACUTE CARE NURSE DTL Alanine Aminotransferase (ALT), S 14 7 - 45 U/L 10/19 9:04 AM SUB ACUTE CARE NURSE DTL Bilirubin, Total, S 0.7 <=1.2 mg/dL 10/19/2020 9:04 AM SUB ACUTE CARE NURSE DTL Specimen Anatomical Collection Method Collection Time Receive d Time (Source) Location / / Volume Laterality Blood (Blood, 10/19/2020 8:04 AM 10/19/19 8:27 Venous) SUB ACUTE CARE NURSE AM SUB ACUTE CARE NURSE James Joseph M.D. LAB BLOOD ADD-ON Performing Organization Address City/[facility] Phon e Number [facility] - [address] Glucose, Fasting (10/19/2020 8:03 AM SUB ACUTE CARE NURSE) [facility] Glucose, P 99 70 - 100 10/19/2020 DTL mg/dL 8:51 AM SUB ACUTE CARE NURSE Last Intake 13 hr 10/19/2020 DTL 8:27 AM SUB ACUTE CARE NURSE Specimen Anatomical Collection Method Collection Time Receive d Time (Source) Location / / Volume Laterality Blood (Blood, 10/19/2020 8:03 AM 10/19/19 8:27 Venous) SUB ACUTE CARE NURSE AM SUB ACUTE CARE NURSE Landon Bal M.D. LAB BLOOD NON ADD-ON Performing Organization Address City/[facility] Phon e Number [facility] - [address] DNA Double-Stranded (dsDNA) Antibodies, IgG (10/19/2020 8:03 AM SUB ACUTE CARE NURSE) [facility] DNA 28.4 <30.0 10/19/2020 [facility] Double-Stranded (Negative) 5:45 PM SUB ACUTE CARE NURSE Ab, IgG, S IU/mL Specimen Anatomical Collection Method Collection Time Receive d Time (Source) Location / / Volume Laterality Blood (Blood, 10/19/2020 8:03 AM 10/19/19 21 Venous) SUB ACUTE CARE NURSE 10:33 AM SUB ACUTE CARE NURSE Landon Bal M.D. LAB BLOOD ADD-ON Performing Organization Address City/State/ZIP Code Phon e Number [facility] [address] [place] [address] [facility] [place] [address] Laboratory Medicine and Pathology [address] [place] documented in this encounter Visit Diagnoses Diagnosis Other Cirrhosis Of Liver (HCC) Lupus Systemic Erythematosus (HCC) Screening Condition documented in this encounter
--- OUTSIDE RECORDS SUMMARY | 2022-05-22 16:03 | XMS_ITS | Encounter Summary ---
:1965 Author Organization [facility] Address [address] [place] [address] Care Team Providers Name Role Phone Unavailable Primary Care Provider Unavailable Reason for Referral Outpatient (Routine) - Modified Order Specialty Diagnoses / Procedures Referred By Contact Refer red To Contact Diagnoses Other Cirrhosis Of Liver (HCC) James Joseph M.D. [facility] Procedures US Abdomen Complete [address] [place] [phone] Referral ID Status Reason Start Date Expiration Date Visits V isits Requested Authorized [id number] Modified 10/17/2020 10/17/2021 1 1 Order URCE DEVELOPMENT DIRECTOR Reason for Visit Outpatient (Routine) - Modified Order Specialty Diagnoses / Procedures Referred By Contact Refer red To Contact Diagnoses Other Cirrhosis Of Liver (HCC) James Joseph M.D. [facility] Procedures US Abdomen Complete [address] [place] [phone] Referral ID Status Reason Start Date Expiration Date Visits V isits Requested Authorized [id number] Modified 10/17/2020 10/17/2021 1 1 Order Encounter Details Date Type Department Care Team Description 10/19/2020 Hospital Encounter Department of James Joseph Cirrhosis Of Radiology, Maxi Burgos M.D. Liver (HCC) Building, in [address] [place], [place] [address] [facility] [phone] [place], [place] [phone] (Work) [phone] Social History Tobacco Use Types Packs/Day Years [...] er 09/23/2021 How often do you attend congregational or yarsani services? Never 09/23/2021 Do you belong to any clubs or organizations such as No 09/23/2021 congregational groups, unions, fraternal or athletic groups, or [...] Description 07/08/2022 Appointment Laboratory Medicine Pedro Donnelly, CARRY IN WORKER, C.N.P. [address] [place] [phone] (Wo rk) 07/08/2022 Office Visit Gastroenterology and Collin Trivedi Hepatology M.DSarina [address] [place] [phone] (Wo rk) documented as of this encounter Procedures Procedure Name Priority Date/Time Associated Diagnosis Comme nts US ABDOMEN COMPLETE Routine 10/19/2020 9:47 AM Other Cirrhosis Of Results for this RESOURCE DEVELOPMENT DIRECTOR Liver (HCC) procedure are i n the results section. documented in this encounter Results US Abdomen Complete (10/19/2020 9:47 AM RESOURCE DEVELOPMENT DIRECTOR) Anatomical Region Laterality Modality Abdomen, Ultrasound RST LOS, Ultrasound ARZ LOS, Ultrasound FLA N/A Ultrasound LOS Specimen (Source) Anatomical Collection Method Collection Time Re ceived Time Location / / Volume Laterality 10/19/2020 9:55 AM RESOURCE DEVELOPMENT DIRECTOR Impressions 10/19/2020 10:03 AM RESOURCE DEVELOPMENT DIRECTOR 1. Chronic hepatic parenchymal disease. Unchanged 3.6 cm the greatest dimension echogenic mass in the right hepatic lobe was previously characterized as a hemangioma. No new hepatic lesions. Ultrasound LI-RADS score is as follows: Ultrasound [...] LI-RADS is supported and endorsed by the [employer] [facility] [employer]. More information can be found on the following link: [email or web address].acr.org/Clinical-Resources/R cognolga-[email or web address]/[email or web address] 2. Stable splenomegaly. Narrative 10/19/2020 10:03 AM RESOURCE DEVELOPMENT DIRECTOR EXAM: US ABDOMEN COMPLETE COMPARISON: 07/22/2019. FINDINGS: Liver: Coarse echotexture consistent wit h chronic parenchymal disease. ??Again noted is a 2.7 x 3.4 x 3.6 cm in size we ll defined echogenic lesion in the right hepatic lobe. This has not significantly changed since the comparison examination. It was characterized as a h emangioma on the CT scan of 08/22/2015. No new focal hepatic mass. Gallbladder: Absent. Intrahepatic ducts: Not dilated. Common duct: Mildly dilated (up to 8 mm in diameter), which is likely related to postcholecystectomy state. Pancreas: Normal where seen. Right kidney: ?? Length:10.8 cm. Parenchymal thinning, in dicative of chronic renal parenchymal disease. No hydronephrosis. Left kidney: ?? Length:9.6 cm. Parenchymal thinning, ind icative of chronic renal parenchymal disease. No hydronephrosis. Spleen: Unchanged splenomegaly. ??Spleen length:16.0 cm 1.6 cm splenule. Aorta: Normal caliber. IVC: Normal where seen. Ascites: ??None. Procedure Note Alexander Ye M.D. - 10/19/2020Forma tting of this note might be different from the original. EXAM: US ABDOMEN COMPLETE COMPARISON: 07/22/2019. FINDINGS: Liver: Coarse echotexture consistent wit h chronic parenchymal disease. Again noted is a 2.7 x 3.4 x 3.6 cm in size we ll defined echogenic lesion in the right hepatic lobe. This has not significantly changed since the comparison examination. It was characterized as a h emangioma on the CT scan of 08/22/2015. No new focal hepatic mass. Gallbladder: Absent. Intrahepatic ducts: Not dilated. Common duct: Mildly dilated (up to 8 mm in diameter), which is likely related to postcholecystectomy state. Pancreas: Normal where seen. Right kidney: Length:10.8 cm. Parenchymal thinning, in dicative of chronic renal parenchymal disease. No hydronephrosis. Left kidney: Length:9.6 cm. Parenchymal thinning, ind icative of chronic renal parenchymal disease. No hydronephrosis. Spleen: Unchanged splenomegaly. Spleen l ength:16.0 cm 1.6 cm splenule. Aorta: Normal caliber. IVC: Normal where seen. Ascites: None. IMPRESSION: 1. Chronic hepatic parenchymal disease. Unchanged 3.6 cm the greatest dimension echogenic mass in the right hepatic lobe was previously characterized as a hemangioma. No new hepatic lesions. Ultrasound LI-RADS score is as follows: Ultrasound [...] LI-RADS is supported and endorsed by the [employer] [facility] [employer]. More information can be found on the following link: https://www.acr.org/Clinical-Resources/R vuedkvap-zbg-Pmbj-Systems/LI-RADS/Ultras [email or web address] 2. Stable splenomegaly. James GRACIA US PROCEDURES documented in this encounter Visit Diagnoses Diagnosis Other Cirrhosis Of Liver (HCC) documented in this encounter
--- OUTSIDE RECORDS SUMMARY | 2022-05-22 16:03 | XMS_ITS | Encounter Summary ---
:1965 Author Organization [facility] Address [address] [place] [address] Care Team Providers Name Role Phone Unavailable Primary Care Provider Unavailable Encounter Details Date Type Department Care Team Description 10/19/2020 Hospital Encounter Department of Moder, Landon Lupus [facility] Laboratory Medicine Chloe Mosher ([facility]) and Pathology, [facility] in [place], [place] [address] [place] [address] Social History Tobacco Use Types Packs/Day Years [...] How often do you attend yarsanism or hinduism services? Never 09/23/2021 Do you [...] Description 07/08/2022 Appointment Laboratory Medicine Pedro Donnelly, FILM SORTER, C.N.P. [address] [place] [phone] (Claudia vera) 07/08/2022 Office Visit Gastroenterology and Collin Trivedi Hepatology Chloe [address] [place] [phone] (Claudia vera) documented as of this encounter Procedures Procedure Name Priority Date/Time Associated Diagnosis Comme nts MICROSCOPIC MANUAL Routine 10/19/2020 8:38 AM Res ults for this PROFESSIONAL EMPLOYER CONSULTANT procedure are i n the results section. URINALYSIS WITH Routine 10/19/2020 8:38 AM Lupus Systemic Resu lts for this MICROSCOPIC PROFESSIONAL EMPLOYER CONSULTANT Erythematosus (HCC) procedur e are in the results section. documented in this encounter Results (ABNORMAL) Microscopic Manual (10/19/2020 8:38 AM PROFESSIONAL EMPLOYER CONSULTANT) P athologist Signature Microscopy Abnormal 10/19/2020 [facility] 9:47 AM PROFESSIONAL EMPLOYER CONSULTANT RBC <3 <3 /hpf 10/19/2020 [facility] 9:47 AM PROFESSIONAL EMPLOYER CONSULTANT WBC 41-50 (A) /hpf 10/19/2020 [facility] 9:47 AM PROFESSIONAL EMPLOYER CONSULTANT Comment: ----REFERENCE VALUE---- 1-3 ??(Males) 1-10 (Females) Squamous Epithelial Cells, U 1-3 /hpf 10/19/2020 9:47 AM PROFESSIONAL EMPLOYER CONSULTANT [facility] Bacteria Present (A) 10/19/2020 9:47 AM PROFESSIONAL EMPLOYER CONSULTANT [facility] Specimen Anatomical Collection Method Collection Time Receive d Time (Source) Location / / Volume Laterality Urine 10/19/2020 8:38 AM 8:38 PROFESSIONAL EMPLOYER CONSULTANT AM PROFESSIONAL EMPLOYER CONSULTANT Landon Bal M.D. LAB URINE ORDERABLES Performing Organization Address City/State/ZIP Code Phon e Number [facility] - [address] [place] [address] [facility] [place] [address] [facility] 200 [facility] Urinalysis with Microscopic: Urine, Midstream (10/19/2020 8:38 AM PROFESSIONAL EMPLOYER CONSULTANT) [facility] gist Method Time Signature Source Midstream 10/19/2020 [facility] 8:38 AM PROFESSIONAL EMPLOYER CONSULTANT Appearance Normal Normal 10/19/2020 [facility] 9:14 AM PROFESSIONAL EMPLOYER CONSULTANT Osmolality, U 652 150 - 1150 10/19/2020 [facility] mOsm/kg 9:38 AM PROFESSIONAL EMPLOYER CONSULTANT pH, U 5.3 4.5 - 8.0 10/19/2020 [facility] 9:38 AM PROFESSIONAL EMPLOYER CONSULTANT Comment: ----ADDITIONAL INFORMATION---- This test was developed and its performa nce characteristics determined by [facility] in a manner co nsistent with CLIA requirements. This test has not bee n cleared or approved by the U.S. Food and Drug Admin istration. Glucose 5 0 - 15 mg/dL 10/19/2020 9:14 AM PROFESSIONAL EMPLOYER CONSULTANT [facility] Protein, U 17 <26 mg/dL 10/19/2020 9:14 AM PROFESSIONAL EMPLOYER CONSULTANT [facility] Comment: ----ADDITIONAL INFORMATION---- On 03/03/2017 the total protein assay me thod changed resulting in approximately a 15% increase in prote in values. Protein/Osmolality 0.26 <0.42 Ratio 10/19/2020 9:38 AM PROFESSIONAL EMPLOYER CONSULTANT [facility] Comment: ----ADDITIONAL INFORMATION---- On 03/03/2017 the total protein assay me thod changed resulting in approximately a 15% increase in prote in values. Predicted 24 Hr Protein 197 mg/24 h 10/19/2020 9:38 AM PROFESSIONAL EMPLOYER CONSULTANT [facility] Predicted Range 49-799 mg/24 h 10/19/2020 9:38 AM PROFESSIONAL EMPLOYER CONSULTANT R LAURENT Hemoglobin, QL Negative Negative 10/19/2020 9:47 AM PROFESSIONAL EMPLOYER CONSULTANT RE NA Specimen Anatomical Collection Method Collection Time Receive d Time (Source) Location / / Volume Laterality Urine (Urine, 10/19/2020 8:38 AM 10/19/19 8:38 Midstream) PROFESSIONAL EMPLOYER CONSULTANT AM PROFESSIONAL EMPLOYER CONSULTANT Landon Bal M.D. LAB URINE ORDERABLES Performing Organization Address City/State/ZIP Code Phon e Number [facility] - [address] [place], [place] [address] [place] [address] [facility] [address] documented in this encounter Visit Diagnoses Diagnosis Lupus Systemic Erythematosus (HCC) documented in this encounter
--- OUTSIDE RECORDS SUMMARY | 2022-05-22 16:03 | XMS_ITS | Encounter Summary ---
:1965 Author Organization [facility] Address [address] [place] [address] Care Team Providers Name Role Phone Unavailable Primary Care Provider Unavailable Encounter Details Date Type Department Care Team Description 11/07/2020 Hospital Encounter [facility] Baca on Therapy Laboratory Medicine Chloe Mosher Not in [address] [phone] Social History Tobacco Use Types [...] How often do you attend orthodox or sabianist services? Never 09/23/2021 Do you [...] (PRINZIDE,ZESTORETIC) 20-25 mg per tablet azaTHIOprine (IMURAN) Take 4 tablets (200 360 tablet 1 09/1411/22/2020 50 mg tablet mg total) by mouth daily. azaTHIOprine (IMURAN) TAKE 4 TABLETS BY 360 tablet 1 021 11/22/2020 50 mg tablet MOUTH DAILY. LABS NEEDED FOR REFILLS mycophenolate Take 1 tablet (500 mg 90 tablet 0 10/23/2020 11/16/2020 (CellCept) 500 mg total) by mouth tablet daily. X 1 week, then 1 BID. Start after stopping azathioprine omeprazole (PriLOSEC) TAKE 1 CAPSULE BY 90 capsule 2 020 11/27/[address] capsule MOUTH EVERY DAY pravastatin [...] Description 07/08/2022 Appointment Laboratory Medicine Pedro Donnelly, LEGAL RESEARCHER, C.N.P. [address] [place] [address] (Wo rk) 07/08/2022 Office Visit Gastroenterology and Collin Trivedi, Hepatology Chloe [address] [place] [phone] (Wo rk) documented as of this encounter Procedures Procedure Name Priority Date/Time Associated Diagnosis Comme nts CBC WITH Routine 11/07/2020 10:02 Medication Therapy Resul ts for this DIFFERENTIAL, B AM HIGH RISK CASE MANAGER Halfway Not procedure a re in Anticoagulant the results section. documented in this encounter Results (ABNORMAL) CBC with Differential, Blood (11/07/2020 10:02 AM HIGH RISK CASE MANAGER) [facility] Method Time Signature Hemoglobin 11.3 (L) 11.6 - 11/07/2020 OWAT 15.0 g/dL 1:33 PM HIGH RISK CASE MANAGER Hematocrit 34.2 (L) 35.5 - 11/07/2020 OWAT 44.9 % 1:33 PM HIGH RISK CASE MANAGER Erythrocytes 3.71 (L) 3.92 - 11/07/2020 OWAT 5.13 1:33 PM HIGH RISK CASE MANAGER x10(12)/L MCV 92.2 78.2 - 11/07/2020 OWAT 97.9 fL 1:33 PM HIGH RISK CASE MANAGER RBC Distrib Width 16.0 12.2 - 11/07/2020 OWAT 16.1 % 1:33 PM HIGH RISK CASE MANAGER Platelet Count 148 (L) 157 - 371 11/07/2020 OWAT x10(9)/L 1:33 PM HIGH RISK CASE MANAGER Leukocytes 4.3 3.4 - 9.6 11/07/2020 OWAT x10(9)/L 1:33 PM HIGH RISK CASE MANAGER Neutrophils 3.23 1.56 - 11/07/2020 OWAT 6.45 1:33 PM HIGH RISK CASE MANAGER x10(9)/L Lymphocytes 0.59 (L) 0.95 - 11/07/2020 OWAT 3.07 1:33 PM HIGH RISK CASE MANAGER x10(9)/L Monocytes 0.38 0.26 - 11/07/2020 OWAT 0.81 1:33 PM HIGH RISK CASE MANAGER x10(9)/L Eosinophils 0.04 0.03 - 11/07/2020 OWAT 0.48 1:33 PM HIGH RISK CASE MANAGER x10(9)/L Basophils 0.01 0.01 - 11/07/2020 OWAT 0.08 1:33 PM HIGH RISK CASE MANAGER x10(9)/L Specimen Anatomical Collection Method Collection Time Receive d Time (Source) Location / / Volume Laterality Blood (Blood, 11/07/2020 10:02 11/07/2020 Venous) AM HIGH RISK CASE MANAGER 10:03 AM HIGH RISK CASE MANAGER Landon Bal M.D. LAB BLOOD ADD-ON Performing Organization Address City/State/ZIP Code Phon e Number [facility] [address] [place] [address] [facility] [place] [address] System in [place] [address] [facility] documented in this encounter Visit Diagnoses Diagnosis Medication Therapy Miner Not Anticoa gulant documented in this encounter
--- OUTSIDE RECORDS SUMMARY | 2022-05-22 16:03 | XMS_ITS | Encounter Summary ---
:1965 Author Organization [facility] Address [address] [place] [address] Care Team Providers Name Role Phone Unavailable Primary Care Provider Unavailable Reason for Referral Outpatient (Routine) - Closed Specialty Diagnoses / Procedures Referred By Contact Refer red To Contact Rheumatology Pedro Donnelly APR N, C.N.P. [address] [phone] Referral ID Status Reason Start Date Expiration Date Visits Requ ested Visits Authorized [id number] Closed 11/22/2020 11/22/2021 1 1 Reason for Visit Outpatient (Routine) - Closed Specialty Diagnoses / Procedures Referred By Contact Refer red To Contact Rheumatology Landon Bal M.D. [address] [phone] Referral ID Status Reason Start Date Expiration Date Visits Requ ested Visits Authorized [id number] Closed 10/19/2020 10/19/2021 1 1 Encounter Details Date Type Department Care Team Description 11/22/2020 Office Visit Division of Pedro Donnelly Lupus Systemic Erythematosus (HCC) (Primary Dx); Rheumatology cr Rojas APRN, C.N.P. Thrombocytopenia (HCC); [address] Hepatitis Autoimmune (HCC) [address] [place] [phone] Social History Tobacco Use Types Packs/Day Years [...] often do you attend jehovah's witness or temple services? Never 09/23/2021 Do you [...] Sign Reading Time Taken Comments Blood Pressure 127/66 11/22/2020 12:51 PM CDT Pulse 101 11/22/2020 12:51 PM CDT Temperature 36 ??C (96.8 ??F) 11/22/2020 12:51 PM CDT Respiratory Rate - - Oxygen Saturation - - Inhaled Oxygen Concentration - - Weight 105 kg (231 lb 14.8 oz) 11/22/2020 12:51 PM CDT Height 176.6 cm (5' 9.53) 11/22/2020 12:51 PM CDT Body Mass Index 33.73 11/22/2020 12:51 PM CDT documented in this encounter Patient Instructions Patient InstructionsPedro Donnelly APRN, C.N.P. - 11/22/2020 1:00 PM CDT 1. Prednisone continue 5mg daily through January 05 then reduce to 2.5mg daily (half tablet) for 7-14 days then stop. 2. Continue CellCept current dose. 3. Consider repeating overnight sleep oximetry test at local clinic. documented in this encounter Progress Notes Pedro Donnelly APRN, C.N.P. - 11/22/2020 1:00 PM CDT SUBJECTIVE CHIEF COMPLAINT / [...] She indicates today that she has had improvement in her hand, finger, and arm pain. She still experiences some pain and discomfort in her proximal legs and lower legs along with periodic cramping. Whenthis is problematic she takes an extra strength Tylenol. Overall she is very pleased with the improvement in her hands and arms. She did message in regarding sweats which she reports today were noted when her prednisone dose was higher. She is not certain if she followed instructions correctly but just increased her CellCept to 1000 mg daily on the . She tapered her prednisone back to the 5 mg daily where she remains today in similar time proximity. She is tolerating the CellCept and is taking it on an empty stomach. She does not report any rashes, mouth sores, pleurisy, alopecia today. Noother acute concerns today. She is scheduled to get her COVID vaccine tomorrow. Previous Reports Reviewed:historical medical records, lab reports and office notes The following portions of the patient's history were reviewed and updated as appropriate: allergies,current medications, medical history and problem list. REVIEW OF SYSTEMS Pertinent positives and negatives as documented in the above history of present illness. REVIEW OF SYSTEMS OBJECTIVE PHYSICAL EXAM Vitals signs reviewed. Constitutional Appearance: She is well-developed. Eyes Pupils: Pupils are equal, round, and reactive to light. Neck Musculoskeletal: Normal range of motion. Cardiovascular Rate and Rhythm: Normal rate and regular rhythm. Pulmonary Effort: Pulmonary effort is normal. Breath sounds: Normal breath sounds. Abdominal Palpations: Abdomen is soft. Tenderness: There is no abdominal tenderness. Musculoskeletal Comments: No distinct joint tenderness noted on [...] today's visit were reviewed with the patient. Complementsand double-stranded DNA still pending. Disease Activity SLEDAI ASSESSMENT / PLAN #1 Lupus Systemic Erythematosus (HCC) #2 Hepatitis Autoimmune (HCC) #3 Thrombocytopenia (HCC) She is tolerating the CellCept well. She will continue with current dose 1000 mg daily and would prefer not to make any other adjustments until she has been at this dose for closer to two months. She will continue to take it in split dosing and on an empty stomach. She will continue with prednisone 5 mg daily through January 05. She will then reduce to 2.5 mg daily and we will see her back shortly afterthat. If she is having more symptoms at that visit we would consider increasing the CellCept further. She will continue with lab monitoring locally and was given another copy of the lab letter today. Regarding the aching in her legs I did discuss with her that this can be a sign of obstructive sleep apnea. She recalls having been tested for that 2017 and recommended to get a mouth guard which she didnot end up purchasing. I recommended she follow up on this with her local provider. #7 Elevated creatinine She needs to continue to follow with her primary care provider locally. PATIENT EDUCATION Ready to learn, no apparent learning barriers were identified; learning preferences include listening. Explained diagnosis and treatment plan; patient expressed understanding of the content. documented in this encounter Plan of Treatment Upcoming Encounters Date Type Specialty Care Team Description 07/08/2022 Appointment Laboratory Medicine Pedro Donnelly APRN, C.N.P. [address] [place] [phone] (Wo rk) 07/08/2022 Office Visit Gastroenterology and Collin Trivedi Hepatology Chloe [address] [place] [phone] (Claudia rk) Scheduled Referrals Name Type Priority Associated Order Schedule Diagnoses Rheumatology office Outpatient Referral Routine E xpected: visit (clinic) 01/10/2021 (Approximate), Expires: 11/23/2023 documented as of this encounter Results Complement, Total (01/31/2021 10:06 AM CDT) athologist Signature Complement, 32 30 - 75 01/31/2021 [facility] Total, S U/mL 5:11 PM CDT Specimen Anatomical Collection Method Collection Time Receive d Time (Source) Location / / Volume Laterality Blood (Blood, 01/31/2021 10:06 01/31/2021 3:02 Venous) AM CDT PM CDT Pedro Donnelly APRN, C.N.P. LAB BLOOD NON ADD-ON Performing Organization Address City/State/ZIP Code Phon e Number [facility] [address] [place], [place] [address] [place] [address] [place] [address] Laboratory Medicine and Pathology [address] [place] (ABNORMAL) Complement C4 (01/31/2021 10:06 AM CDT) athologist Signature Complement C4, S 4 (L) 14 - 40 01/31/2021 [facility] mg/dL 5:34 PM CDT Specimen Anatomical Collection Method Collection Time Receive d Time (Source) Location / / Volume Laterality Blood (Blood, 01/31/2021 10:06 01/31/2021 3:02 Venous) AM CDT PM CDT Robert Kumar APRNN.P. LAB BLOOD ADD-ON Performing Organization Address City/[facility]/ZIP Code Phon e Number [facility] [address] [place], [place] [address] [facility] [place] [address] Laboratory Medicine and Pathology [address] [place] [address] Dr. CACERES Complement C3 (01/31/2021 10:06 AM CDT) P athologist Signature Complement C3, S 86 75 - 175 01/31/2021 [facility] mg/dL 4:32 PM CDT Specimen Anatomical Collection Method Collection Time Receive d Time (Source) Location / / Volume Laterality Blood (Blood, 01/31/2021 10:06 01/31/2021 3:02 Venous) AM CDT PM CDT Robert Kumar APRNN.P. LAB BLOOD ADD-ON Performing Organization Address City/[facility] Code Phon e Number [facility] [address] [place], [place] [address] [facility] [place] [address] Laboratory Medicine and Pathology [address] [place] [address] Dr. CACERES DNA Double-Stranded (dsDNA) Antibodies, IgG (01/31/2021 10:06 AM CDT) athologist Signature DNA 14.9 <30.0 02/01/2021 [facility] Double-Stranded (Negative) 10:59 AM CDT Ab, IgG, S IU/mL Specimen Anatomical Collection Method Collection Time Receive d Time (Source) Location / / Volume Laterality Blood (Blood, 01/31/2021 10:06 01/31/2021 1:59 Venous) AM CDT PM CDT Apolonia Kumar APRN.N.PSarina LAB BLOOD ADD-ON Performing Organization Address City/State/ZIP Code Phon e Number [facility] [address] [place] [address] [facility] [place] [address] Laboratory Medicine and Pathology [address] [place] [address] Dr. CACERES (ABNORMAL) Creatinine with Estimated GFR (01/31/2021 10:06 AM CDT) Analysis Performed At Patho logist Time Signature Creatinine 1.19 (H) 0.59 - 01/31/2021 D[facility] 1.04 mg/dL 11:29 AM CDT eGFR-Non 51 (L) >=60 01/31/2021 [facility] Black/ mL/min/BSA 11:29 AM CDT Qatari Comment: ----ADDITIONAL INFORMATION---- Estimated GFR calculated using [...] C.N.P. LAB BLOOD ADD-ON Performing Organization Address City/[facility] Phon e Number [facility] - [address] [place] [address] [facility] AST (Aspartate Aminotransferase) (01/31/2021 10:06 AM CDT) Patholo gist Method Time Signature Aspartate 20 8 - 43 01/31/2021 DTL Aminotransferase U/L 11:29 AM CDT (AST), S Specimen Anatomical Collection Method Collection Time Receive d Time (Source) Location / / Volume Laterality Blood (Blood, 01/31/2021 10:06 01/31/2021 Venous) AM CDT 10:32 AM CDT Pedro Donnelly APRN, C.N.P. LAB BLOOD ADD-ON Performing Organization Address City/[facility] Phon e Number [facility] - [address] [place], [place] [address] [facility] [place] [address] CRP (C-Reactive Protein) (01/31/2021 10:06 AM CDT) P athologist Signature C-Reactive 7.9 <=8.0 mg/L 01/31/2021 DTL Protein (CRP), 11:29 AM CDT S Specimen Anatomical Collection Method Collection Time Receive d Time (Source) Location / / Volume Laterality Blood (Blood, 01/31/2021 10:06 01/31/2021 Venous) AM CDT 10:32 AM CDT Pedro Donnelly APRN, C.N.P. LAB BLOOD ADD-ON Performing Organization Address City/[facility] Phon e Number [facility] - 200 [place], [place] [address] [facility] [place] [address] Laboratories-[address] (ABNORMAL) Sedimentation Rate (01/31/2021 10:06 AM CDT) [facility] Method Time Signature Sedimentation 119 (H) 2 - 22 01/31/2021 DTL Rate, B mm/h 11:42 AM CDT Specimen Anatomical Collection Method Collection Time Receive d Time (Source) Location / / Volume Laterality Blood (Blood, 01/31/2021 10:06 01/31/2021 Venous) AM CDT 10:39 AM CDT Pedro Donnelly APRN, C.N.P. LAB BLOOD ADD-ON Performing Organization Address City/[facility] Phon e Number [facility] - 200 [place], [place] [address] [facility] [place], [place] [id number] [place] [address] (ABNORMAL) CBC with Differential, Blood (01/31/2021 10:06 AM CDT) [facility] Method Time Signature Hemoglobin 11.1 (L) 11.6 [...] [facility] [address] [place], [place] [address] [facility] [place] [address] Laboratories-[facility] [address] documented in this encounter Visit Diagnoses Diagnosis Lupus Systemic Erythematosus (HCC) - Afia vinh Thrombocytopenia (HCC) Hepatitis Autoimmune (HCC) documented in this encounter
--- OUTSIDE RECORDS SUMMARY | 2022-05-22 16:03 | XMS_ITS | Encounter Summary ---
:1965 Author Organization [facility] Address [address] [place] [address] Care Team Providers Name Role Phone Unavailable Primary Care Provider Unavailable Encounter Details Date Type Department Care Team Description 10/19/2020 Episode Changes Division of Rheumatology in [place], [place] M, R.N. [address] [facility] [address] [place] [phone] [place], [place] [phone] Social History Tobacco Use Types Packs/Day Years [...] er 09/23/2021 How often do you attend sabianist or judaism services? Never 09/23/2021 Do you belong to any clubs or organizations such as No 09/23/2021 sabianist groups, unions, fraternal or athletic groups, or [...] Description 07/08/2022 Appointment Laboratory Medicine Pedro Donnelly, EARLY MORNING BABYSITTER, C.N.P. [address] [place] [phone] (Wo rk) 07/08/2022 Office Visit Gastroenterology and Collin Trivedi Hepatology MAyala [address] [place] [phone] (Wo rk) documented as of this encounter Visit Diagnoses Not on filedocumented in this encounter
--- OUTSIDE RECORDS SUMMARY | 2022-05-22 16:03 | XMS_ITS | Encounter Summary ---
:1965 Author Organization [facility] Address [address] [place] [address] Care Team Providers Name Role Phone Unavailable Primary Care Provider Unavailable Reason for Visit Reason Comments Patient Education CellCept Outpatient (Routine) - Canceled Specialty Diagnoses / Procedures Referred By Contact Refer red To Contact Video Medicine Diagnoses Lupus Systemic Erythematosus (HCC) Landon Bal M.D. [facility] [address] [place] [address] Referral ID Status Reason Start Date Expiration Date Visits V isits Requested Authorized [id number] Canceled 10/19/2020 10/19/2021 1 1 Encounter Details Date Type Department Care Team Description 10/23/2020 Virtual Visit Division of Landon Bal M.D. Lupus Systemic Rheumatology in LynAvani, R.NSarina [address] [place] [phone] Erythematosus (HCC) [place], [place] [address] [place] [phone] Social History Tobacco Use Types Packs/Day Years [...] How often do you attend evangelical or baptist services? Never 09/23/2021 Do you [...] PM CDT documented as of this encounter Patient Instructions Discharge InstructionsAvani Celis R.N. - 10/23/2020 11:14 AM CST Shanda Baxter: Here is the information regarding CellCept I went through with you today. I will have Dr Bal send a lab letter to the [facility] and clinic. If you have any questions, please let us know. Take care. Avani MAYNARD N DRILLER AttachmentsThe following attachments cannot be sent through Care Everywhere. Mycophenolate (By mouth) ([place] Citizen)documented in this encounter Progress Notes Avani Celis R.N. - 10/23/2020 10:00 AM CST SUBJECTIVE REASON FOR CALL Medication Education HISTORY OF PRESENT ILLNESS Vee ArielSarina Erum has a diagnosis of Lupus. Landon Bal MD requested nursing assistance with medication education. Reviewed education on mycophenolate mofetil (CellCept) with the patient. Discussed purpose, administration, precautions, risks, side effects, vaccines, illnesses and lab monitoring, and when to contactproviders. I discussed REMS with patient. She informs me that she is currently not sexually active and has not had a period for 8 years. Patient would like a lab letter sent to [facility]. I informed patient that I will send her a portal message with the educational information of CellCept. I informed patient that once she starts taking CellCept, she will stop taking Azathioprine. Patient had no further questions/concerns. I encouraged patient to call us if she has any further questions/concerns. N DRILLER documented in this encounter Plan of Treatment Upcoming Encounters Date Type Specialty Care Team Description 07/08/2022 Appointment Laboratory Medicine Pedro Donnelly, SORT WORKER, C.N.P. [address] [place] [phone] (Claudia vera) 07/08/2022 Office Visit Gastroenterology and Collin Trivedi, Hepatology M.DSarina [address] [place] [phone] (Claudia vera) documented as of this encounter Visit Diagnoses Diagnosis Lupus Systemic Erythematosus (HCC) documented in this encounter
--- OUTSIDE RECORDS SUMMARY | 2022-05-22 16:03 | XMS_ITS | Encounter Summary ---
:1965 Author Organization [facility] Address [address] [place] [address] Care Team Providers Name Role Phone Unavailable Primary Care Provider Unavailable Reason for Visit Reason Comments Intake Assessment Encounter Details Date Type Department Care Team Description 10/18/2020 Clinical Communication Division of Landon Bal Assessment Rheumatology in Chloe Mosher [place], [place] [address] [place] [phone] Social History Tobacco Use Types Packs/Day Years [...] How often do you attend sabianist or yazidi services? Never 09/23/2021 Do you [...] Description 07/08/2022 Appointment Laboratory Medicine Pedro Donnelly, OPTICAL COATING TECHNICIAN, C.N.P. [address] [place] [phone] (Claudia vera) 07/08/2022 Office Visit Gastroenterology and Collin Trivedi, Hepatology M.DSarina [address] [place] [phone] (Claudia vera) documented as of this encounter Visit Diagnoses Not on filedocumented in this encounter
--- OUTSIDE RECORDS SUMMARY | 2022-05-22 16:03 | XMS_ITS | Encounter Summary ---
:1965 Author Organization [facility] Address [address] [place] [address] Care Team Providers Name Role Phone Unavailable Primary Care Provider Unavailable Reason for Visit Reason Comments Med Refill Encounter Details Date Type Department Care Team Description 11/11/2020 Refill Division of Rheumatology in [facility], Landon Mosher M.D. Med Refill [place], [place] [address] [place] [phone] Social History Tobacco Use Types Packs/Day [...] er 09/23/2021 How often do you attend episcopal or taoism services? Never 09/23/2021 Do you belong to any clubs or organizations such as No 09/23/2021 episcopal groups, unions, fraternal or athletic groups, or [...] encounter Miscellaneous Notes Telephone Encounter - Vesna Pringle R.N. - 11/15/2020 9:12 AM CERTIFIED ENDOSCOPY TECHNICIAN Prescription renewal request for mycophenolate mofetil (Cellcept) received from pharmacy. HISTORY OF PRESENT ILLNESS Last Rheum visit: 10/19/20 with Landon Bal MD Future office visit: 11/22/20 Last monitoring labs/eye exam: 11/07/20: within protocol parameters. Prescription request matches current plan of care. Prescription request matches a current prescription in the Medication List. Exclusion criteria:None ASSESSMENT/PLAN Prescription request renewed per nursing protocol. Portal message sent to patient to verify current dose and any side effects. IFIED ENDOSCOPY TECHNICIAN documented in this encounter Plan of Treatment Upcoming Encounters Date Type Specialty Care Team Description 07/08/2022 Appointment Laboratory Medicine Pedro Donnelly, GROCERY SPECIALIST, C.N.P. [address] [place] [phone] (Claudia vera) 07/08/2022 Office Visit Gastroenterology and Collin Trivedi Hepatology Chloe [address] [place] [phone] (Claudia vera) documented as of this encounter Visit Diagnoses Not on filedocumented in this encounter
--- OUTSIDE RECORDS SUMMARY | 2022-05-22 16:03 | XMS_ITS | Encounter Summary ---
:1965 Author Organization [facility] Address [address] [place] [address] Care Team Providers Name Role Phone Unavailable Primary Care Provider Unavailable Reason for Referral Outpatient (Routine) - Closed Specialty Diagnoses / Procedures Referred By Contact Refer red To Contact Diagnoses Other Cirrhosis Of Liver (HCC) James Joseph M.D. [facility] Procedures US Abdomen Complete US Abdomen Limited Liver [address] [place] [address] Referral ID Status Reason Start Date Expiration Date Visits Requ ested Visits Authorized [id number] Closed 10/19/2020 10/19/2021 1 1 TY GLASS INSTALLER Outpatient (Routine) - Closed Specialty Diagnoses / Referred By Referred To Cont act Procedures Contact Gastroenterology and James Joseph [facility] Hepatology M.D. [address] [place] [address] Referral ID Status Reason Start Date Expiration Date Visits Requ ested Visits Authorized [id number] Closed 10/19/2020 10/19/2021 1 1 TY GLASS INSTALLER Reason for Visit Outpatient (Routine) - Closed Specialty Diagnoses / Referred By Referred To Cont act Procedures Contact Gastroenterology James Gomez [facility] Hepatology M.D. [address] [place] [address] Referral ID Status Reason Start Date Expiration Date Visits Requ ested Visits Authorized [id number] Closed 06/21/2019 06/20/2020 1 1 Encounter Details Date Type Department Care Team Description 10/19/2020 Office Visit Division of James Josepho sis Of Gastroenterology in Chloe Burgos Liver (HCC) (Primary [place], [place] [address]x) [address] [place] [phone] Social History Tobacco Use Types Packs/Day Years [...] How often do you attend yarsani or bahai services? Never 09/23/2021 Do you belong to [...] minutes do you engage in exercise at is 0 min 09/23/2021 level? Stress Answer [...] documented as of this encounter Progress Notes James Joseph M.D. - 10/19/2020 4:00 PM CST GI Outpatient summary dairy nutrition consultant: Dr. 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 ?? #. Cirrhotic stage autoimmune hepatitis (MELD-Na 9, CTP-A) #. History of SLE on immunosuppression Ms. Danielson returns today for management of her cirrhosis, which is compensated. She has not had anyinterval jaundice, encephalopathy, gastrointestinal bleeding, pruritus, or volume overload. Prior MELD-Na score was a 6 back in 2019, is currently at a 9 today, largely driven by her increase in creatinine. She was evaluated by Rheumatology today, and at that visit she reported that she felt unwell with arthralgias and myalgias, decreased blood counts, and had worsening renal function, it was thoughtthat she may be losing effect of azathioprine on management of her lupus. It was therefore felt thatshe should transition the CellCept with short-term bridge of prednisone 5 mg, provided this was okayfrom a hepatology perspective. Plan & recommendations: - OK with transition to CellCept + prednisone; I will check hepatic function panel when she returns for lab work with Rheumatology in 8 weeks. Today, reviewed the side effects of CellCept, including diarrhea and cytopenias. Cellcept for autoimmune hepatitis is typically dosed at 1000 mg BID, typicallyin combination with a corticosteroid. - At risk for encephalopathy: not present - At risk for hyponatremia: not present - At risk for esophageal/gastric varices: upper endoscopy in 12/2018 was negative for esophageal varices. Repeat screening in 2-3 years or sooner for any hepatic decompensation. Given thrombocytopenia,does not meet criteria for Baveno criteria. - At risk for hepatocellular carcinoma: not identified on ultrasound today. Repeat in 6 months. - At risk for volume overload: not present #. Hepatic hemangioma, 3 cm, right lobe of liver, asymptomatic This was noted on a 2014 CT scan. By ultrasound today it is 2.7 x 3.4 x 3.6 cm in size. No further dedicated imaging is required given the stability. #. Functional (non-ulcer) dyspepsia Please see my prior note for further work up and discussion of this issue. She is on omeprazole daily, with only modest improvement in symptoms. Will increase this to b.i.d., if this is not helpful after 8 weeks, we will transition to a tricyclic neuromodulato ?? #. Bone mineral assessment:?? Given her smoking history, female sex, underlying cirrhosis, and exposure to steroids, she is high risk for osteoporosis or osteopenia. ??DEXA is 12/2018 showed osteopenia with lowest T score -1.0, repeat in 2 years. Osteopenia with 8.2% risk of major osteoporotic fracture, 0.8% hip fracture in 10 years. Plan: - repeat DEXA in 12/2020 #. Tobacco abuse (>30 years) Quit in Jul 15 2018. A copy of this note will be sent to my sap ariba consultant, Dr. Armenta. I spent a total of 25 minutes with the patient, and greater than 50% of that time was spent on counseling and coordination of care. Follow up needs: - labs in 2 months - labs and ultrasound + return visit in 6 months James Joseph MD GI & Hepatology fellow, PGY-6 dairy nutrition consultant: Dr. Armenta TY GLASS INSTALLER documented in this encounter Plan of Treatment Upcoming Encounters Date Type Specialty Care Team Description 07/08/2022 Appointment Laboratory Medicine Pedro Donnelly, TOWER HAND, C.N.P. [address] [place] [address] (Wo rk) 07/08/2022 Office Visit Gastroenterology and Collin Trivedi Hepatology [place] [address] [place] [address] (Wo rk) Scheduled Referrals Name Type Priority Associated Order Schedule Diagnoses Gastroenterology and Outpatient Routine Expecte d: Hepatology office visit Referral 04/07 (clinic) (Approximate), Expires: 10/19/2023 documented as of this encounter Results US Abdomen Complete (04/19/2021 [...] LI-RADS is supported and endorsed by the [employer]. More information can be found on the following link: https://www.acr.org/Clinical-Resources/R jmcjngmf-ikd-Gwne-Systems/LI-RADS/Ultras tld-KO-OLLI-v2017 Procedure Note Tanesha Baltazar M.D. - 04/19/2021Form [...] LI-RADS is supported and endorsed by the [employer]. More information can be found on the following link: https://www.acr.org/Clinical-Resources/R gjesvfrv-zpd-Nhxe-Systems/LI-RADS/Ultras zqi-LK-KWLR-v2017 IMPRESSION: 1. Slightly coarse hepatic parenchymal e chotexture consistent with chronic parenchymal disease. Stable hemangioma i n the right lobe of the liver. Antegrade flow in the main portal vein. Ultrasound LI RADS 1A. 2. Splenomegaly. 3. Parenchymal thinning of both kidneys. James Joseph M.D. IMG US PROCEDURES (ABNORMAL) CBC with Differential, Blood (04/19/2021 7:05 AM CDT) [facility] Method Time Signature Hemoglobin 9.0 (L) 11.6 [...] M.D. LAB BLOOD ADD-ON Performing Organization Address [facility] Phon e Number [facility] - [address] [place], [place] [address] [place] [address] [place] [address] Laboratories-[address] Prothrombin Time (PT) (04/19/2021 7:05 AM [...] M.D. LAB BLOOD ADD-ON Performing Organization Address City/[facility] Phon e Number [facility] - [address] [place], [place] [address] [facility] [place] [place] [address] Laboratories-[address] (ABNORMAL) Comprehensive Metabolic Panel (04/19/2021 7:05 AM [...] 04/19/2021 DTL Black/ mL/min/BSA 8:03 AM CDT [place] Comment: ----ADDITIONAL INFORMATION---- Estimated GFR calculated using [...] AM 04/19/20 7:25 Venous) CDT AM CDT James Joseph M.D. LAB BLOOD ADD-ON Performing Organization Address City/State/ZIP Code Phon e Number [facility] - [address] [place], [place] [address] [facility] [place] [address] Laboratories-[facility] [address] documented in this encounter Visit Diagnoses Diagnosis Other Cirrhosis Of Liver (HCC) - Primary Other Cirrhosis Of Liver (HCC) documented in this encounter
--- OUTSIDE RECORDS SUMMARY | 2022-05-22 16:04 | XMS_ITS | Encounter Summary ---
:1965 Author Organization [facility] Address [address] [place] [address] Care Team Providers Name Role Phone Unavailable Primary Care Provider Unavailable Encounter Details Date Type Department Care Team Description 01/19/2020 Orders Only Division of Mally, Landon Mosher, Lupus System ic Rheumatology in M.DSarina [facility] s ([facility]) [place], [place] (Primary Dx) [address] [place] [address] Social History Tobacco Use Types Packs/Day Years [...] How often do you attend jewish or spiritism services? Never 09/23/2021 Do you [...] Description 07/08/2022 Appointment Laboratory Medicine Pedro Donnelly, BASEBALL GLOVE SHAPER, C.N.P. [address] [place] [phone] (Wo rk) 07/08/2022 Office Visit Gastroenterology and Collin Trivedi, Hepatology M.DSarina [address] [place] [phone] (Wo rk) documented as of this encounter Results Urinalysis with Microscopic: Urine, Clean Catch (01/24/2020 11:56 AM CDT) [facility] Method Time Signature Source Midstream 01/24/2020 ZION 11:56 AM CDT Appearance Normal Normal 01/24/2020 [facility] 12:53 PM CDT Osmolality, U 660 150 - 1150 01/24/2020 [facility] mOsm/kg 1:02 PM CDT pH, U 5.1 4.5 - 8.0 01/24/2020 [facility] 1:02 PM CDT Comment: ----ADDITIONAL INFORMATION---- This test was developed and its performa nce characteristics determined by [facility] in a manner co nsistent with CLIA requirements. This test has not bee n cleared or approved by the U.S. Food and Drug Admin istration. Glucose 6 0 - 15 mg/dL 01/24/2020 12:53 PM CDT AKHIL A Protein, U 9 <26 mg/dL 01/24/2020 12:53 PM CDT ZION Comment: ----ADDITIONAL INFORMATION---- On 03/03/2017 the total protein assay me thod changed resulting in approximately a 15% increase in prote in values. Protein/Osmolality 0.14 <0.42 Ratio 01/24/2020 1:02 PM CDT [facility] Comment: ----ADDITIONAL INFORMATION---- On 03/03/2017 the total protein assay me thod changed resulting in approximately a 15% increase in prote in values. Predicted 24 Hr Protein 110 mg/24 h 01/24/2020 1:02 PM CDT [facility] Predicted Range 27-444 mg/24 h 01/24/2020 1:02 PM CDT R LAURENT Hemoglobin, QL Negative Negative 01/24/2020 1:38 PM CDT RE NA Specimen Anatomical Collection Method Collection Time Receive d Time (Source) Location / / Volume Laterality Urine (Urine, 01/24/2020 11:56 01/24/2020 Clean Catch) AM CDT 11:56 AM CDT Landon Bal M.D. LAB URINE ORDERABLES Performing Organization Address [facility] Phon e Number [facility] - [address] [place], [place] [address] [place] [address] Laboratories-[facility] [address] (ABNORMAL) Complement C4 (01/24/2020 11:00 AM CDT) athologist Signature Complement C4, <3 (L) 14 - 40 01/24/2020 [facility] S mg/dL 4:38 PM CDT Specimen Anatomical Collection Method Collection Time Receive d Time (Source) Location / / Volume Laterality Blood (Blood, 01/24/2020 11:00 01/24/2020 1:29 Venous) AM CDT PM CDT Landon Bal M.D. LAB BLOOD ADD-ON Performing Organization Address City/[facility] Phon e Number [facility] [address] [place], [place] [address] SUPPORT CENTER [facility] [place] [address] Laboratory Medicine and Pathology [address] [place] DNA Double-Stranded (dsDNA) Antibodies, IgG (01/24/2020 11:00 AM CDT) athologist Signature DNA 21.9 <30.0 01/25/2020 [facility] Double-Stranded (Negative) 12:08 PM CDT Ab, IgG, S IU/mL Specimen Anatomical Collection Method Collection Time Receive d Time (Source) Location / / Volume Laterality Blood (Blood, 01/24/2020 11:00 01/24/2020 2:02 Venous) AM CDT PM CDT Landon Bal M.D. LAB BLOOD ADD-ON Performing Organization Address City/State/ZIP Code Phon e Number [facility] [address] [place], [place] [address] [facility] [place] [address] Laboratory Medicine and Pathology [address] [place] (ABNORMAL) CRP (C-Reactive Protein) (01/24/2020 11:00 AM CDT) P athologist Signature C-Reactive 13.3 (H) <=8.0 mg/L 01/24/2020 DTL Protein (CRP), 12:06 PM CDT S Specimen Anatomical Collection Method Collection Time Receive d Time (Source) Location / / Volume Laterality Blood (Blood, 01/24/2020 11:00 01/24/2020 Venous) AM CDT 11:49 AM CDT Landon Bal M.D. LAB BLOOD ADD-ON Performing Organization Address City/State/ZIP Code Phon e Number [facility] - [address] [place], [place] [address] [facility] DTL [address] (ABNORMAL) Sedimentation Rate (01/24/2020 11:00 AM CDT) [facility] Method Time Signature Sedimentation 122 (H) 2 - 22 01/24/2020 DTL Rate, B mm/h 2:32 PM CDT Specimen Anatomical Collection Method Collection Time Receive d Time (Source) Location / / Volume Laterality Blood (Blood, 01/24/2020 11:00 01/24/2020 Venous) AM CDT 11:31 AM CDT Landon Bal M.D. LAB BLOOD ADD-ON Performing Organization Address City/State/ZIP Code Phon e Number [facility] - [address] [place], [place] [address] [facility] [place] [address] [facility] [address] (ABNORMAL) CBC with Differential, Blood (01/24/2020 11:00 AM CDT) [facility] Method Time Signature Hemoglobin 10.0 (L) 11.6 - 01/24/2020 DTL 15.0 g/dL 11:40 AM CDT Hematocrit 27.0 (L) 35.5 - 01/24/2020 DTL 44.9 % 11:40 AM CDT Erythrocytes 2.67 (L) 3.92 - 01/24/2020 DTL 5.13 11:40 AM CDT x10(12)/L MCV 101.1 (H) 78.2 - 01/24/2020 DTL 97.9 fL 11:40 AM CDT RBC Distrib Width 21.2 (H) 12.2 - 01/24/2020 DTL 16.1 % 11:40 AM CDT Platelet Count 156 (L) 157 - 371 01/24/2020 DTL x10(9)/L 11:40 AM CDT Leukocytes 4.5 3.4 - 9.6 01/24/2020 DTL x10(9)/L 11:40 AM CDT Neutrophils 3.50 1.56 - 01/24/2020 DTL 6.45 11:40 AM CDT x10(9)/L Lymphocytes 0.60 (L) 0.95 - 01/24/2020 DTL 3.07 11:40 AM CDT x10(9)/L Monocytes 0.36 0.26 - 01/24/2020 DTL 0.81 11:40 AM CDT x10(9)/L Eosinophils 0.05 0.03 - 01/24/2020 DTL 0.48 11:40 AM CDT x10(9)/L Basophils <0.03 0.01 - 01/24/2020 DTL 0.08 11:40 AM CDT x10(9)/L Specimen Anatomical Collection Method Collection Time Receive d Time (Source) Location / / Volume Laterality Blood (Blood, 01/24/2020 11:00 01/24/2020 Venous) AM CDT 11:31 AM CDT Landon Bal M.D. LAB BLOOD ADD-ON Performing Organization Address City/State/ZIP Code Phon e Number [facility] - [address] [place], [place] [address] [facility] [place] [address] Laboratories-[facility] [address] SARS Coronavirus 2 IgG Ab, JOSE, Serum (01/24/2020 11:00 AM CDT) P athologist Signature SARS-CoV-2 IgG Negative Negative 01/24/2020 [facility] Ab 10:53 PM CDT Comment: No IgG antibodies to SARS-CoV-2 detected . ?? Negative results may occur in serum agus ected too soon following infection, or in immunosuppres sed patients. ?? Follow-up testing with a molecular test is recommended in symptomatic patients. ??This test gracie uld not be used to exclude active/recent COVID-19. ?? Testing was performed using the EUROIMMUN Lgjg-SAQT-QxV-2 JOSE (IgG), which has received Emergency Use Authori zation (EUA) by the U.S. Food and Drug Administration . ?? Fact sheets for this EUA assay can be fo und at the following links: ?? Factsheet for healthcare Providers: ?? https://www.fda.gov/media/715385/downloa d Factsheet for healthcare Patients: ?? https://www.fda.gov/media/627265/downloa d Specimen Anatomical Collection Method Collection Time Receive d Time (Source) Location / / Volume Laterality Blood (Blood, 01/24/2020 11:00 01/24/2020 1:53 Venous) AM CDT PM CDT Landon Bal M.D. LAB MICROBIOLOGY - BLOOD ORD ERABLES Performing Organization Address City/State/ZIP Code Phon e Number [facility] [address] [place], [place] [address] SUPPORT CENTER [facility] [place] [address] Laboratory Medicine and Pathology [address] [place] documented in this encounter Visit Diagnoses Diagnosis Lupus Systemic Erythematosus (HCC) - Afia justice documented in this encounter
--- OUTSIDE RECORDS SUMMARY | 2022-05-22 16:04 | XMS_ITS | Encounter Summary ---
:1965 Author Organization [facility] Address [address] [place] [address] Care Team Providers Name Role Phone Unavailable Primary Care Provider Unavailable Encounter Details Date Type Department Care Team Description 12/12/2019 Orders Only Department of Sarah Sam Hemorrhage Retinal Bilateral (Primary Dx); Ophthalmology in R, C.O.A. Retinopathy [place], [place] [address] [facility] [address] [place] [phone] Social History Tobacco Use Types Packs/Day Years [...] How often do you attend yazdanism or gnosticism services? Never 09/23/2021 Do you belong to [...] Description 07/08/2022 Appointment Laboratory Medicine Pedro Donnelly, SURFACING TECHNICIAN, C.N.P. [address] [place] [phone] (Claudia rk) 07/08/2022 Office Visit Gastroenterology and Collin Trivedi, Hepatology M.DSarina [address] [place] [phone] (Claudia rk) documented as of this encounter Visit Diagnoses Diagnosis Hemorrhage Retinal Bilateral - Primary Retinopathy documented in this encounter
--- OUTSIDE RECORDS SUMMARY | 2022-05-22 16:04 | XMS_ITS | Encounter Summary ---
:1965 Author Organization [facility] Address [address] [place] [address] Care Team Providers Name Role Phone Unavailable Primary Care Provider Unavailable Reason for Referral MRI/CAT/PET Scan (Routine) - Closed Specialty Diagnoses / Procedures Referred By Contact Refer red To Contact Radiology Diagnoses Lung Interstitial Disease (HCC) Morris Rico M.D. [facility] Procedures CT Chest without IV Contrast [address] [place] [phone] Referral ID Status Reason Start Date Expiration Date Visits Requ ested Visits Authorized [id number] Closed 01/23/2020 01/22/2021 1 1 Reason for Visit MRI/CAT/PET Scan (Routine) - Closed Specialty Diagnoses / Procedures Referred By Contact Refer red To Contact Radiology Diagnoses Lung Interstitial Disease (HCC) Morris Rico M.D. [facility] Procedures CT Chest without IV Contrast [address] [place] [phone] Referral ID Status Reason Start Date Expiration Date Visits Requ ested Visits Authorized [id number] Closed 01/23/2020 01/22/2021 1 1 Encounter Details Date Type Department Care Team Description 02/16/2020 Hospital Encounter [facility] Morris [facility] M.[facility]. Disease (HCC) Building, in [address] [place], [place] [address] [facility] [address] [place], [place] [phone] (Work) [phone] Social History Tobacco Use Types Packs/Day Years [...] How often do you attend confucianism or alevism services? Never 09/23/2021 Do you [...] place to sleep or slept in a half-way (including now)? Education Answer Date Recorded What [...] mouth daily. (PRINZIDE,ZESTORETIC) 20-25 mg per tablet aspirin [address] tablet Take 1 tablet (81 30 tablet 11 09/1409/13/2020 mg total) by mouth daily. predniSONE (DELTASONE) 5 Take 3 tablets (15 300 tablet 1 04/202009/13/2020 mg tablet mg total) by mouth daily. X 2 weeks, then 2 (10 mg) x 2 wks then 1 (5 mg) daily azaTHIOprine (IMURAN) 50 Take 4 tablets (200 360 tablet 1 11/22/2020 mg tablet mg total) by mouth daily. azaTHIOprine (IMURAN) 50 Take 4 tablets (200 360 tablet 0 08/15/2020 mg tablet mg total) by mouth daily. Labs needed every 2 months for refills. omeprazole (PriLOSEC) 40 TAKE 1 CAPSULE BY 90 capsule 3 06/0807/03/[address] capsule MOUTH EVERY DAY pravastatin (PRAVACHOL) Take 1 tablet (40 90 tablet 3 09/1409/04/2020 40 mg tablet mg total) by mouth daily. valacyclovir HCl 0 12/07/2019 03/25/20 21 (VALACYCLOVIR ORAL) documented as of this encounter Plan of Treatment Upcoming Encounters Date Type Specialty Care Team Description 07/08/2022 Appointment Laboratory Medicine Pedro Donnelly, POULTRY FIELD SERVICE TECHNICIAN, C.N.P. [address] [place] [phone] (Claudia vera) 07/08/2022 Office Visit Gastroenterology and Collin Trivedi Hepatology M.DSarina [address] [place] [phone] (Claudia vera) documented as of this encounter Procedures Procedure Name Priority Date/Time Associated Comments Diagnosis CT CHEST WITHOUT RAD - Routine 02/16/2020 1:22 Lung Interstitial Re sults for this IV CONTRAST (most inpatients PM CDT Disease (HCC) procedure are in and all the results outpatients) section. documented in this encounter Results CT Chest without IV Contrast (02/16/2020 1:22 PM CDT) Anatomical Region Laterality Modality Chest, Thoracic RST LOS, Thoracic ARZ N/A Co mputed Tomography, Computed LOS, Thoracic FLA LOS Tomography Specimen (Source) Anatomical Collection Method Collection Time Re ceived Time Location / / Volume Laterality 02/16/2020 1:24 PM CDT Impressions 02/16/2020 2:16 PM CDT No significant change since 08/18/2019. Stable pulmonary groundglass abnormality. Narrative 02/16/2020 2:16 PM CDT EXAM: CT CHEST WITHOUT IV CONTRAST COMPARISON: Multiple chest CTs, most rec ent dated 08/18/2019. FINDINGS: Scattered pulmonary nodules are unchange d since 05/25/2012. For example, a 5 mm mean diameter subpleural nodule in the p osterior left lower lobe (3/325), a 3 mm nodule in the right middle lobe (3/254), and a 4 mm subpleural nodule in the left lower lobe (3/268). Stable bilateral groundglass opacities w ith interlobular septal thickening, reticulation, and mild bronchiectasis; d istribution is again predominantly paramediastinal and marvin-bronchovascular though some peripheral components are noted. Moderate coronary artery calcification. Hepatic steatosis. Cholecystectomy. Sple nomegaly. Stable bilateral axillary and subpectoral lymph node prominence. Degen erative and hypertrophic changes of the thoracic spine. Procedure Note Alexander Hunt M.D. - 02/16/2020For matting of this note might be different from the original. EXAM: CT CHEST WITHOUT IV CONTRAST COMPARISON: Multiple chest CTs, most rec ent dated 08/18/2019. FINDINGS: Scattered pulmonary nodules are unchange d since 05/25/2012. For example, a 5 mm mean diameter subpleural nodule in the p osterior left lower lobe (3/325), a 3 mm nodule in the right middle lobe (3/254), and a 4 mm subpleural nodule in the left lower lobe (3/268). Stable bilateral groundglass opacities w ith interlobular septal thickening, reticulation, and mild bronchiectasis; d istribution is again predominantly paramediastinal and marvin-bronchovascular though some peripheral components are noted. Moderate coronary artery calcification. Hepatic steatosis. Cholecystectomy. Sple nomegaly. Stable bilateral axillary and subpectoral lymph node prominence. Degen erative and hypertrophic changes of the thoracic spine. IMPRESSION: No significant change since 08/18/2019. Stable pulmonary groundglass abnormality. Morris P Jacky M.D. IMG CT PROCEDURES documented in this encounter Visit Diagnoses Diagnosis Lung Interstitial Disease (HCC) documented in this encounter
--- OUTSIDE RECORDS SUMMARY | 2022-05-22 16:04 | XMS_ITS | Encounter Summary ---
:1965 Author Organization [facility] Address [address] [place] [address] Care Team Providers Name Role Phone Unavailable Primary Care Provider Unavailable Reason for Visit Reason Comments Med Refill Encounter Details Date Type Department Care Team Description 02/07/2020 Refill Division of Rheumatology in Pedro Donnelly APRN, Med Refill [place], [place] C.N.P. [address] [facility] [address] [place] [address] [place] [address] [phone] (Wo rk) Social History Tobacco Use Types [...] How often do you attend amish or rastafarian services? Never 09/23/2021 Do you [...] Encounter - Nicole Hardy M.S.N., R.N. - 02/10/2020 8:02 AM CDT Prescription renewal request for azathioprine (Imuran) received from pharmacy and patient. HISTORY OF PRESENT ILLNESS Last Rheum visit: 12/12/2019 with Landon Bal MD Future office visit: not ordered Last monitoring labs/eye exam: Pateint had labs on 01/24/2020, however, an AST was not done. Last ASTwas on 12/08/2019. Patient labs are within protocol. Prescription request matches current plan of care. Prescription request matches a current prescription in the Medication List. ASSESSMENT/PLAN Prescription request pended for provider review due to AST is overdue. documented in this encounter Plan of Treatment Upcoming Encounters Date Type Specialty Care Team Description 07/08/2022 Appointment Laboratory Medicine Pedro Donnelly APRN, C.N.P. [address] [place] [phone] (Claudia vera) 07/08/2022 Office Visit Gastroenterology and Collin Trivedi Hepatology Chloe [address] [place] [phone] (Claudia vera) documented as of this encounter Visit Diagnoses Not on filedocumented in this encounter Additional Health Concerns Infection Onset Date Last Indicated Resolved Time COVID19 Pending 01/23/2020 01/23/2020 02/15/2020 8:07 AM CDT documented as of this encounter
--- OUTSIDE RECORDS SUMMARY | 2022-05-22 16:04 | XMS_ITS | Encounter Summary ---
:1965 Author Organization [facility] Address [address] [place] [address] Care Team Providers Name Role Phone Unavailable Primary Care Provider Unavailable Reason for Visit Reason Comments Lab Monitoring collected 09/27/20 Encounter Details Date Type Department Care Team Description 09/28/2020 Clinical Communication Division of Landon Bal onitoring Rheumatology in Chloe Mosher (collected ) [place], [place] [address] [place] [address] Social History Tobacco Use Types Packs/Day Years [...] How often do you attend baptism or hoahaoism services? Never 09/23/2021 Do you [...] Encounter - Nicole Hardy M.S.N., R.N. 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 All monitored labs are within parameters. Labs reviewed: absolute neutrophil count, hemoglobin, leukocytes, platelets External labs were entered into Labs Tab and sent for scanning. PLAN Patient to continue with current plan of care. 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 [address] [place] [phone] (Claudia vera) 07/08/2022 Office Visit Gastroenterology and Collin Trivedi, Hepatology [place] [address] [place] [phone] (Claudia vera) documented as of this encounter Procedures Procedure Name Priority Date/Time Associated Diagnosis Comme nts CBC WITH DIFFERENTIAL, Routine 09/27/2020 Resul ts for this B procedure are i n the results section . documented in this encounter Results (ABNORMAL) CBC with Differential, Blood (09/27/2020) Analysis Performed At Patho logist Time Signature EXT Platelet 151 150 - 450 Count EXT Neutrophils 2.53 1.7 - 7 EXT Hemoglobin 12 12 - 12.5 EXT White Blood 3.6 (A) 5.0 - 10.0 Cell (WBC) Count Specimen (Source) Anatomical Location Collection Method / Collectio n Time Received Time / Laterality Volume Blood (Blood, Venous) Narrative This result has an attachment that is no t available. Historical Provider LAB BLOOD ADD-ON documented in this encounter Visit Diagnoses Not on filedocumented in this encounter
--- OUTSIDE RECORDS SUMMARY | 2022-05-22 16:04 | XMS_ITS | Encounter Summary ---
:1965 Author Organization [facility] Address [address] [place] [address] Care Team Providers Name Role Phone Unavailable Primary Care Provider Unavailable Encounter Details Date Type Department Care Team Description 01/24/2020 Hospital Encounter Department of [place], Landon Lupus [facility] Laboratory Medicine Chloe Mosher ([facility]) and Pathology, [facility] in [place], [place] [address] [place] [address] Social History Tobacco Use Types Packs/Day Years [...] How often do you attend evangelical or latter-day services? Never 09/23/2021 Do you belong to [...] 1 (5 mg) daily azaTHIOprine (IMURAN) 50 TAKE 3 TABLETS BY 270 tablet 2 03/0802/10/2020 mg tablet MOUTH EVERY DAY azaTHIOprine (IMURAN) 50 Take 4 tablets (200 360 tablet 1 11/22/2020 mg tablet mg total) by mouth daily. omeprazole (PriLOSEC) 40 TAKE 1 CAPSULE BY [...] Description 07/08/2022 Appointment Laboratory Medicine Pedro Donnelly, WAX PATTERN ASSEMBLER, C.N.P. [address] [place] [phone] (Wo rk) 07/08/2022 Office Visit Gastroenterology and Collin Trivedi Hepatology Chloe [address] [place] [address] (Wo rk) documented as of this encounter Procedures Procedure Name Priority Date/Time Associated Diagnosis Comme nts MICROSCOPIC Routine 01/24/2020 11:56 Results for this AUTOMATED AM CDT procedure are i n the results section. URINALYSIS WITH Routine 01/24/2020 11:56 Lupus Systemic Result s for this MICROSCOPIC AM CDT Erythematosus (HCC) procedur e are in the results section. documented in this encounter Results Microscopic Automated (01/24/2020 11:56 AM CDT) athologist Signature Microscopy Normal 01/24/2020 [facility] 1:38 PM CDT Squamous 1-3 /hpf 01/24/2020 [facility] Epithelial 1:38 PM CDT Cells, U Specimen Anatomical Collection Method Collection Time Receive d Time (Source) Location / / Volume Laterality Urine 01/24/2020 11:56 01/24/2020 AM CDT 11:56 AM CDT Landon Bal M.D. LAB URINE ORDERABLES Performing Organization Address City/State/ZIP Code Phon e Number [facility] - [address] [place] [phone] [facility] [place] [address] Laboratories-[address] Urinalysis with Microscopic: Urine, Clean Catch (01/24/2020 11:56 AM CDT) [facility] Method Time Signature Source Midstream 01/24/2020 [facility] 11:56 AM CDT Appearance Normal Normal 01/24/2020 [facility] 12:53 PM CDT Osmolality, U 660 150 - 1150 01/24/2020 [facility] mOsm/kg 1:02 PM CDT pH, U 5.1 4.5 - 8.0 01/24/2020 [facility] 1:02 PM CDT Comment: ----ADDITIONAL INFORMATION---- This test was developed and its performa nce characteristics determined by [facility] in a manner co nsistent with [...] Organization Address City/State/ZIP Code Phon e Number [facility] - [address] [place], [place] [address] [place] [address] Laboratories-[facility] [address] documented in this encounter Visit Diagnoses Diagnosis Lupus Systemic Erythematosus (HCC) documented in this encounter Additional Health Concerns Infection Onset Date Last Indicated Resolved Time COVID19 Pending 01/23/2020 01/23/2020 02/15/2020 8:07 AM CDT documented as of this encounter
--- OUTSIDE RECORDS SUMMARY | 2022-05-22 16:04 | XMS_ITS | Encounter Summary ---
:1965 Author Organization [facility] Address [address] [place] [address] Care Team Providers Name Role Phone Unavailable Primary Care Provider Unavailable Encounter Details Date Type Department Care Team Description 10/02/2020 Orders Only Division of Rheumatology Landon Bal, Screening Condition in [facility] [place] (Primary Dx) [address] [place] [address] Social History Tobacco Use Types Packs/Day [...] How often do you attend congregational or pentecostal services? Never 09/23/2021 Do you belong to [...] Description 07/08/2022 Appointment Laboratory Medicine Pedro Donnelly, CORPORATE SAFETY COORDINATOR, C.N.P. [address] [place] [phone] (Claudia rk) 07/08/2022 Office Visit Gastroenterology and Collin Trivedi Hepatology Chloe [address] [place] [phone] (Claudia rk) documented as of this encounter Results Glucose, Fasting (10/19/2020 8:03 AM FOOD AND DRUG INSPECTOR) P athologist Signature Glucose, P 99 70 - 100 10/19/2020 [facility] mg/dL 8:51 AM FOOD AND DRUG INSPECTOR Last Intake 13 hr 10/19/2020 [facility] 8:27 AM FOOD AND DRUG INSPECTOR Specimen Anatomical Collection Method Collection Time Receive d Time (Source) Location / / Volume Laterality Blood (Blood, 10/19/2020 8:03 AM 10/19/19 8:27 Venous) FOOD AND DRUG INSPECTOR AM FOOD AND DRUG INSPECTOR Landon Bal M.D. LAB BLOOD NON ADD-ON Performing Organization Address City/State/ZIP Code Phon e Number [facility] - [address] [place] [phone] [facility] [place] [address] Laboratories-[facility] 200 [facility] documented in this encounter Visit Diagnoses Diagnosis Screening Condition - Primary documented in this encounter
--- OUTSIDE RECORDS SUMMARY | 2022-05-22 16:04 | XMS_ITS | Encounter Summary ---
:1965 Author Organization [facility] Address [address] [place] [address] Care Team Providers Name Role Phone Unavailable Primary Care Provider Unavailable Reason for Visit Reason Comments Med Refill Encounter Details Date Type Department Care Team Description 07/03/2020 Refill Division of Gastroenterology in James Joseph, Med Refill [place], [place] Chloe [address] [facility] [address] [place] [address] [place], [place] [phone] (Wo rk) Social History Tobacco Use Types [...] er 09/23/2021 How often do you attend caodaism or moravian services? Never 09/23/2021 Do you belong to any clubs or organizations such as No 09/23/2021 caodaism groups, unions, fraternal or athletic groups, or [...] Description 07/08/2022 Appointment Laboratory Medicine Pedro Donnelly, ADMITTING OFFICER, C.N.P. [address] [place] [address] (Wo rk) 07/08/2022 Office Visit Gastroenterology and Collin Trivedi, Hepatology M.DSarina [address] [place] [address] (Wo rk) documented as of this encounter Visit Diagnoses Not on filedocumented in this encounter
--- OUTSIDE RECORDS SUMMARY | 2022-05-22 16:04 | XMS_ITS | Encounter Summary ---
:1965 Author Organization [facility] Address [address] [place] [address] Care Team Providers Name Role Phone Unavailable Primary Care Provider Unavailable Reason for Visit Outpatient (Routine) - Closed Specialty Diagnoses / Procedures Referred By Contact Refer red To Contact Pulmonary Medicine Diagnoses Cough Unspecified Type Landon Bal M.D. [facility] 200 [place] [address] Referral ID Status Reason Start Date Expiration Date Visits V isits Requested Authorized [id number] Closed Specialty 01/20/2020 01/19/2021 1 1 Services Required Encounter Details Date Type Department Care Team Description 02/16/2020 Office Visit Division of Pulmonary Jacky, Joel Sepulveda ea On Exertion (Primary Dx); Medicine in Max[place]loe Cough [place] [address] [place] [address] [place] [phone] Social History Tobacco Use Types Packs/Day Years [...] er 09/23/2021 How often do you attend temple or gnosticism services? Never 09/23/2021 Do you belong to any clubs or organizations such as No 09/23/2021 temple groups, unions, fraternal or athletic groups, or [...] Sign Reading Time Taken Comments Blood Pressure 126/65 02/16/2020 3:26 PM CDT Pulse 83 02/16/2020 3:26 PM CDT Temperature 36.1 ??C (97 ??F) 02/16/2020 3:26 PM CDT Respiratory Rate - - Oxygen Saturation 99% 02/16/2020 3:26 PM CDT Inhaled Oxygen Concentration - - Weight 107 kg (236 lb 8.9 oz) 02/16/2020 3:26 PM CDT Height 161.7 cm (5' 3.66) 02/16/2020 3:26 PM CDT Body Mass Index 41.04 02/16/2020 3:26 PM CDT documented in this encounter Progress Notes Morris Rico M.D. - 02/16/2020 4:30 PM CDT SUBJECTIVE CHIEF COMPLAINT/REASON FOR VISIT Followup interstitial lung disease in the setting of systemic lupus erythematosus. HISTORY OF PRESENT ILLNESS It is a pleasure to see Miss Danielson today for reassessment of her interstitial lung disease and dyspnea. She is a delightful a 54-year-old woman from the [facility] with systemic lupus erythematosus and associated interstitial lung disease. She also has a history of autoimmune hepatitis and cirrhosis. She continues to have very significant dyspnea. This is occurring with just a few hundred feet(modified MRC3). This is unchanged from when I saw her in August of 2019. She is very concerned about this. She is overweight and does not exercise. She saw Cardiology in September 2019. An echocardiogram really did not suggest pulmonary hypertension. Because of the significant dyspnea, a stress nuclear perfusion scan and oxygen consumption was performed. This demonstrated no evidence of ischemia, normal ejection fraction, limited peak VO2 with cardiac impairment exercise. Interpretation is that thelimited VO2 is likely related to excess weight and impaired cardiac output. She has successfully quit smoking. She has no evidence of COPD. Pulmonary function testing performedon August 18, 2019 demonstrated a normal spirometry but a diffusing capacity of 57% predicted. Followup pulmonary function testing today is stable, although the diffusing capacity slightly better. Her CT scan has showed ground-glass changes and some septal thickening and this is unchanged on a followup CT scan compared with August 2019 and June of 2019. This interstitial process is likely related to her SLE. She is followed by Dr. Landon Bal in Rheumatology and is currently on azathioprine 200 mg per day. The following portions of the patient's history were reviewed and updated as appropriate: allergies,current medication, family history, medical history, surgical history, social history, problem list. OBJECTIVE PHYSICAL EXAMINATION Vital Signs: Height 161.7 cm, weight 107.3 kg. Temperature 36.1 degrees Celsius, pulse 83. Blood pressure 120/65, right arm seated. Saturation 99% room air. General Appearance: Is in no distress. She is quite overweight. Her BMI is 41. Nodes: No supraclavicular cervical adenopathy. Chest: Fine crackles both lung bases. Heart: Regular rate and rhythm without murmur. Abdomen: Protuberant due to obesity, but no hepatosplenomegaly, mass, or tenderness. Extremities: No cyanosis, clubbing, or edema. Gait normal. Neuro: Alert oriented x3. ASSESSMENT / PLAN #1 Interstitial lung disease secondary to systemic lupus erythematosus - stable #2 Mildly reduced diffusing capacity - secondary to #1 #3 Obesity and deconditioning #4 Dyspnea which seems out of proportion to objective findings The dyspnea complaint is quite significant. She does have some interstitial lung disease and this isstable. Pulmonary function testing is really only mildly affected and therefore her dyspnea seems out of proportion to what I would expect with her interstitial lung disease. Certainly her weight and de conditioning is likely playing a role, but I still wonder whether there may be an additional factor.The nuclear stress test did not demonstrate ischemia, but she really had a low level of exercise capacity. She does have cirrhosis and I suppose she could have hepatopulmonary syndrome. She has no evidence of hypoxia at rest. There does not appear to be any evidence of pulmonary hypertension on the recent echo to suggest portopulmonary hypertension. I think it would be reasonable to obtain an echocardiogram to recheck pulmonary pressures, but particularly to do a bubble study to help rule out shunt,which might be related to hepatopulmonary syndrome. Presuming that is negative, I would recommend a g raduated exercise program and a reduction in weight. We spent a considerable amount of time talking about this. She seems motivated to do this. She has a treadmill at home. If after 3-6 months of concerted effort toward conditioning, her dyspnea is no better, then I might consider a Heart Failure Clinic evaluation for evaluation of her dyspnea, which is out of proportion to the objective findings. Itis possible that she could have significant exercise- induced heart failure with preserved ejection fraction, and if we get this far, sometimes a right-sided hemodynamic cath with exercise can uncover this. Beyond that, she has been wanting to see her medical physicist. I note that her appointment was delayed due to the pandemic. She will contact to reschedule this. In terms of followup of the interstitial lung disease, I think a CT and pulmonary function testing would be reasonable in 6 months' time. She is wondering whether she needs to see me back. I am happy to see her when she sees Dr. Bal for followup or Dr. Bal could simply check the tests, and if theyare stable, then I do not need to see at that visit. MARGIN CODE: Established 4, 30 minutes. Morris Rico M.D. CT CT Job ID: [id number] documented in this encounter Plan of Treatment Upcoming Encounters Date Type Specialty Care Team Description 07/08/2022 Appointment Laboratory Medicine Pedro Donnelly, ANTHONY CSarinaN.PSarina [address] [place] [phone] (Claudia rk) 07/08/2022 Office Visit Gastroenterology and Collin Trivedi Hepatology Chloe [address] [place] [phone] (Claudia rk) documented as of this encounter Visit Diagnoses Diagnosis Dyspnea On Exertion - Primary Cough Unspecified Type documented in this encounter
--- OUTSIDE RECORDS SUMMARY | 2022-05-22 16:04 | XMS_ITS | Encounter Summary ---
:1965 Author Organization [facility] Address [address] [place] [address] Care Team Providers Name Role Phone Unavailable Primary Care Provider Unavailable Reason for Visit Outpatient (Routine) - Closed Specialty Diagnoses / Procedures Referred By Contact Refer red To Contact Rheumatology Landon Bal M.D. [facility] 200 [place] [address] Referral ID Status Reason Start Date Expiration Date Visits Requ ested Visits Authorized [id number] Closed 09/14/2019 09/13/2020 1 1 Encounter Details Date Type Department Care Team Description 12/12/2019 Virtual Visit Division of Landon Bal, Chronic Irma er Disease (Primary Dx); Rheumatology in James.Juan Lupus System ic Erythematosus (HCC) [place], [place] [address] [place] [phone] Social History Tobacco Use Types Packs/Day Years [...] How often do you attend quaker or church services? Never 09/23/2021 Do you [...] to pay for the very basics like Sponduuw hat hard 09/23/2021 food, housing, medical care, [...] PM CDT documented as of this encounter H&P Notes Landon Bal M.D. - 12/12/2019 4:00 PM CDT Grade I phoned the patient today. Said she is doing well. Continues on azathioprine 200 milligrams per day. Patient questions about her liver disease size sent an E consult to GI regarding this. Patient seems satisfied with the interaction. I will arrange a follow-up visit with her in the next few weeks once we are seeing patient back after the pandemic. documented in this encounter Plan of Treatment Upcoming Encounters Date Type Specialty Care Team Description 07/08/2022 Appointment Laboratory Medicine Pedro Donnelly, SHELL COREMAKER, C.N.P. 200 [place] [address] (Claudia vera) 07/08/2022 Office Visit Gastroenterology and Collin Trivedi, Hepatology Chloe [address] [place] [phone] (Claudia vera) documented as of this encounter Results Complement C3 (01/24/2020 11:00 AM CDT) athologist Signature Complement C3, S 87 75 - 175 01/24/2020 [facility] mg/dL 3:36 PM CDT Specimen Anatomical Collection Method Collection Time Receive d Time (Source) Location / / Volume Laterality Blood (Blood, 01/24/2020 11:00 01/24/2020 1:29 Venous) AM CDT PM CDT Landon Bal M.D. LAB BLOOD ADD-ON Performing Organization Address City/State/ZIP Code Phon e Number [facility] [address] [place] [address] [place] [address] Laboratory Medicine and Pathology [address] [place] documented in this encounter Visit Diagnoses Diagnosis Chronic Liver Disease - Primary Lupus Systemic Erythematosus (HCC) documented in this encounter
--- OUTSIDE RECORDS SUMMARY | 2022-05-22 16:04 | XMS_ITS | Encounter Summary ---
:1965 Author Organization [facility] Address [address] [place] [address] Care Team Providers Name Role Phone Unavailable Primary Care Provider Unavailable Reason for Referral Outpatient (Routine) - Closed Specialty Diagnoses / Procedures Referred By Contact Refer red To Contact Pulmonary Medicine Diagnoses Cough Unspecified Type Landon Bal M.D. [facility] 200 [place] [address] Referral ID Status Reason Start Date Expiration Date Visits V isits Requested Authorized [id number] Closed Specialty 01/20/2020 01/19/2021 1 1 Services Required Encounter Details Date Type Department Care Team Description 01/20/2020 Orders Only Division of Rheumatology Landon Bal Cough (Primary Dx) in [facility] ki [place] [address] [place] [phone] Social History Tobacco Use Types Packs/Day [...] get together with friends or relatives? Nev magdiel 09/23/2021 How often do you attend mormonism or druze services? Never 09/23/2021 Do you belong to [...] 07/08/2022 Appointment Laboratory Medicine Pedro Donnelly, FIELD ACCOUNT MANAGER, C.N.P. [address] [place] [phone] (Claudia vera) 07/08/2022 Office Visit Gastroenterology and Collin Trivedi Hepatology M.DSarina [address] [place] [address] (Claudia vera) Scheduled Referrals Name Type Priority Associated Diagnoses Order S [facility] Pulmonary Medicine Outpatient Referral Routine Cough Ex pected: - General consult 01/24/2020 , (clinic) Expires: 01/19/2023 documented as of this encounter Visit Diagnoses Diagnosis Cough Unspecified Type - Primary documented in this encounter
--- OUTSIDE RECORDS SUMMARY | 2022-05-22 16:04 | XMS_ITS | Encounter Summary ---
:1965 Author Organization [facility] Address [address] [place] [address] Care Team Providers Name Role Phone Unavailable Primary Care Provider Unavailable Encounter Details Date Type Department Care Team Description 09/11/2020 Orders Only Division of Mally, Landon Mosher, Lupus System ic Rheumatology in M.DSarina Erythematosu s ([facility]) [place], [place] (Primary Dx) [address] [place] [address] Social History Tobacco Use Types Packs/Day Years [...] How often do you attend uatsdin or taoist services? Never 09/23/2021 Do you [...] Description 07/08/2022 Appointment Laboratory Medicine Pedro Donnelly, ROUTE DRIVER, C.N.P. [address] [place] [phone] (Claudia vera) 07/08/2022 Office Visit Gastroenterology and Collin Trivedi Hepatology M.DSarina [address] [place] [phone] (Claudia vera) documented as of this encounter Visit Diagnoses Diagnosis Lupus Systemic Erythematosus (HCC) - Afia justice documented in this encounter
--- OUTSIDE RECORDS SUMMARY | 2022-05-22 16:04 | XMS_ITS | Encounter Summary ---
:1965 Author Organization [facility] Address [address] [place] [address] Care Team Providers Name Role Phone Unavailable Primary Care Provider Unavailable Reason for Referral Outpatient (Routine) - Modified Order Specialty Diagnoses / Procedures Referred By Contact Refer red To Contact Diagnoses Other Cirrhosis Of Liver (HCC) James Joseph M.D. [facility] Procedures US Abdomen Complete [address] [place], [place] [phone] Referral ID Status Reason Start Date Expiration Date Visits V isits Requested Authorized [id number] Modified 10/17/2020 10/17/2021 1 1 Order Encounter Details Date Type Department Care Team Description 12/08/2019 Orders Only Division of James Joseph Cirrhosis Al coholic (HCC) (Primary Dx); Gastroenterology cr Burgos M.D. Other Cirrhosis Of Liver (HCC) [place], [place] [address] [facility] [address] [place] [phone] Social History Tobacco Use Types Packs/Day Years [...] How often do you attend episcopal or samaritan services? Never 09/23/2021 Do you belong to any clubs or organizations such as No 09/23/2021 episcopal groups, unions, fraMailgun or athletic groups, or school groups? How [...] Description 07/08/2022 Appointment Laboratory Medicine Pedro Donnelly, NUT DEHYDRATOR OPERATOR, C.N.P. [address] [place] [phone] (Claudia vera) 07/08/2022 Office Visit Gastroenterology and Collin Trivedi Hepatology MAyala [address] [place] [phone] (Claudia rk) documented as of this encounter Results US Abdomen Complete (10/19/2020 9:47 AM MAT MAKING MACHINE TENDER) Anatomical Region Laterality Modality Abdomen, Ultrasound RST LOS, Ultrasound ARZ LOS, Ultrasound FLA N/A Ultrasound LOS Specimen (Source) Anatomical Collection Method Collection Time Re ceived Time Location / / Volume Laterality 10/19/2020 9:55 AM MAT MAKING MACHINE TENDER Impressions 10/19/2020 10:03 AM MAT MAKING MACHINE TENDER 1. Chronic hepatic parenchymal disease. Unchanged 3.6 [...] LI-RADS is supported and endorsed by the [place] [employer]. More information can be found on the following link: https://www.acr.org/Clinical-Resources/R hitphggq-gdy-Pmsv-Systems/LI-RADS/Ultras oqm-LF-PNHE-v2017 2. Stable splenomegaly. Narrative 10/19/2020 10:03 AM MAT MAKING MACHINE TENDER EXAM: US ABDOMEN COMPLETE COMPARISON: 07/22/2019. FINDINGS: [...] LI-RADS is supported and endorsed by the [place] [employer]. More information can be found on the following link: https://www.acr.org/Clinical-Resources/R oulznaec-rlv-Soyt-Systems/LI-RADS/Ultras lyq-US-DBFB-v2017 2. Stable splenomegaly. James Joseph M.D. IMG US PROCEDURES (ABNORMAL) CBC with Differential, Blood (10/19/2020 8:04 AM MAT MAKING MACHINE TENDER) Patholo gist Method Time Signature Hemoglobin 10.6 (L) 11.6 - 10/19/2020 DTL 15.0 g/dL 8:37 AM MAT MAKING MACHINE TENDER Hematocrit 31.7 (L) 35.5 - 10/19/2020 DTL 44.9 % 8:37 AM MAT MAKING MACHINE TENDER Erythrocytes 3.39 (L) 3.92 - 10/19/2020 DTL 5.13 8:37 AM MAT MAKING MACHINE TENDER x10(12)/L MCV 93.5 78.2 - 10/19/2020 DTL 97.9 fL 8:37 AM MAT MAKING MACHINE TENDER RBC Distrib Width 15.1 12.2 - 10/19/2020 DTL 16.1 % 8:37 AM MAT MAKING MACHINE TENDER Platelet Count 134 (L) 157 - 371 10/19/2020 DTL x10(9)/L 8:37 AM MAT MAKING MACHINE TENDER Leukocytes 4.1 3.4 - 9.6 10/19/2020 DTL x10(9)/L 8:37 AM MAT MAKING MACHINE TENDER Neutrophils 3.42 1.56 - 10/19/2020 DTL 6.45 8:37 AM MAT MAKING MACHINE TENDER x10(9)/L Lymphocytes 0.47 (L) 0.95 - 10/19/2020 DTL 3.07 8:37 AM MAT MAKING MACHINE TENDER x10(9)/L Monocytes 0.18 (L) 0.26 - 10/19/2020 DTL 0.81 8:37 AM MAT MAKING MACHINE TENDER x10(9)/L Eosinophils 0.04 0.03 - 10/19/2020 DTL 0.48 8:37 AM MAT MAKING MACHINE TENDER x10(9)/L Basophils <0.03 0.01 - 10/19/2020 DTL 0.08 8:37 AM MAT MAKING MACHINE TENDER x10(9)/L Specimen Anatomical Collection Method Collection Time Receive d Time (Source) Location / / Volume Laterality Blood (Blood, 10/19/2020 8:04 AM 10/19/19 21 8:27 Venous) MAT MAKING MACHINE TENDER AM MAT MAKING MACHINE TENDER James Joseph M.D. LAB BLOOD ADD-ON Performing Organization Address City/State/ZIP Code Phon e Number [facility] - [address] [place], [place] [address] [place] [address] [facility] [place] [address] Prothrombin Time (PT) (10/19/2020 8:04 AM MAT MAKING MACHINE TENDER) P athologist Signature Prothrombin 12.0 9.4 - 12.5 10/19/2020 DTL Time, P sec 8:44 AM MAT MAKING MACHINE TENDER INR 1.1 0.9 - 1.1 10/19/2020 DTL 8:44 AM MAT MAKING MACHINE TENDER Comment: ----ADDITIONAL INFORMATION---- Standard intensity warfarin therapeutic range: 2.0 to 3.0 ?? High intensity warfarin therapeutic rang e: 2.5 to 3.5 Specimen Anatomical Collection Method Collection Time Receive d Time (Source) Location / / Volume Laterality Blood (Blood, 10/19/2020 8:04 AM 10/19/19 8:27 Venous) MAT MAKING MACHINE TENDER AM MAT MAKING MACHINE TENDER James Joseph M.D. LAB BLOOD ADD-ON Performing Organization Address City/State/ZIP Code Phon e Number [facility] - [address] [place], [place] [address] [place] [address] [facility] [place] [address] [facility] (ABNORMAL) Comprehensive Metabolic Panel (10/19/2020 8:04 AM MAT MAKING MACHINE TENDER) Analysis Performed At Patho logist Time Signature Potassium, S 4.2 3.6 - 5.2 10/19/2020 DTL mmol/L 9:04 AM MAT MAKING MACHINE TENDER Sodium, S 140 135 - 145 10/19/2020 DTL mmol/L 9:04 AM MAT MAKING MACHINE TENDER Chloride, S 104 98 - 107 10/19/2020 DTL mmol/L 9:04 AM MAT MAKING MACHINE TENDER Bicarbonate, S 25 22 - 29 10/19/2020 DTL mmol/L 9:04 AM MAT MAKING MACHINE TENDER Anion Gap 11 7 - 15 10/19/2020 DTL 9:04 AM MAT MAKING MACHINE TENDER BUN (Blood Urea 26 (H) 6 - 21 10/19/2020 DTL Nitrogen), S mg/dL 9:04 AM MAT MAKING MACHINE TENDER Creatinine 1.24 (H) 0.59 - 10/19/2020 DTL 1.04 mg/dL 9:04 AM MAT MAKING MACHINE TENDER eGFR-Non 49 (L) >=60 10/19/2020 DTL Black/ mL/min/BSA 9:04 AM MAT MAKING MACHINE TENDER [place] Comment: ----ADDITIONAL INFORMATION---- Estimated GFR calculated using the 2009 CKD_EPI creatinine equation. eGFR-Black/ 56 (L) >=60 mL/min/BSA 2020 9:04 AM MAT MAKING MACHINE TENDER DTL Comment: ----ADDITIONAL INFORMATION---- Estimated GFR calculated using the 2009 CKD_EPI creatinine equation. Calcium, Total, S 9.3 8.6 - 10.0 mg/dL 10/19/2020 9:04 AM MAT MAKING MACHINE TENDER DTL Glucose, S CANCELED mg/dL 10/19/2020 8:27 AM MAT MAKING MACHINE TENDER DTL Comment: Test not performed. See Fasting Glucose result. Result canceled by the ancillary. Protein, Total, S 7.6 6.3 - 7.9 g/dL 10/19/2020 9:04 A M MAT MAKING MACHINE TENDER DTL Albumin, S 4.3 3.5 - 5.0 g/dL 10/19/2020 9:04 AM MAT MAKING MACHINE TENDER D TL Aspartate Aminotransferase (AST), S 18 8 - 43 U/L 08/2021 9:04 AM MAT MAKING MACHINE TENDER DTL Alkaline Phosphatase, S 86 35 - 104 U/L 10/19/2020 9: 04 AM MAT MAKING MACHINE TENDER DTL Alanine Aminotransferase (ALT), S 14 7 - 45 U/L 10/19 9:04 AM MAT MAKING MACHINE TENDER DTL Bilirubin, Total, S 0.7 <=1.2 mg/dL 10/19/2020 9:04 AM MAT MAKING MACHINE TENDER DTL Specimen Anatomical Collection Method Collection Time Receive d Time (Source) Location / / Volume Laterality Blood (Blood, 10/19/2020 8:04 AM 10/19/19 8:27 Venous) MAT MAKING MACHINE TENDER AM MAT MAKING MACHINE TENDER James Joseph M.D. LAB BLOOD ADD-ON Performing Organization Address City/State/ZIP Code Phon e Number [facility] - [address] [place], [place] [address] [place] [address] [facility] [place] [address] documented in this encounter Visit Diagnoses Diagnosis Cirrhosis Alcoholic (HCC) - Primary Other Cirrhosis Of Liver (HCC) Other Cirrhosis Of Liver (HCC) documented in this encounter
--- OUTSIDE RECORDS SUMMARY | 2022-05-22 16:04 | XMS_ITS | Encounter Summary ---
:1965 Author Organization [facility] Address [address] [place] [address] Care Team Providers Name Role Phone Unavailable Primary Care Provider Unavailable Reason for Referral Outpatient (Routine) - Closed Specialty Diagnoses / Procedures Referred By Contact Refer red To Contact Landon Bal M.D. [facility] 200 [place] [address] Referral ID Status Reason Start Date Expiration Date Visits Requ ested Visits Authorized [id number] Closed 08/23/2020 08/23/2021 1 1 ANICAL DESIGN TECHNICIAN Encounter Details Date Type Department Care Team Description 08/23/2020 Clinical Communication Division of Landon Bal, Rheumatology in [place] [address] [phone] Social History Tobacco Use Types Packs/Day Years [...] How often do you attend evangelical or restoration services? Never 09/23/2021 Do you [...] Description 07/08/2022 Appointment Laboratory Medicine Pedro Donnelly, GAS PROCESSING PLANT OPERATOR, C.N.P. [address] [place] [phone] (Wo rk) 07/08/2022 Office Visit Gastroenterology and Collin Trivedi Hepatology [place] [address] [place] [phone] (Wo rk) Scheduled Referrals Name Type Priority Associated Diagnoses Order S chedule NonF2F phone Outpatient Referral Routine Expected : visit 08/23/2020 (Approximate), Expires: 2022 documented as of this encounter Results Urinalysis with Microscopic: Urine, Midstream (10/19/2020 8:38 AM MECHANICAL DESIGN TECHNICIAN) [facility] Method Time Signature Source Midstream 10/19/2020 [facility] 8:38 AM MECHANICAL DESIGN TECHNICIAN Appearance Normal Normal 10/19/2020 [facility] 9:14 AM MECHANICAL DESIGN TECHNICIAN Osmolality, U 652 150 - 1150 10/19/2020 [facility] mOsm/kg 9:38 AM MECHANICAL DESIGN TECHNICIAN pH, U 5.3 4.5 - 8.0 10/19/2020 [facility] 9:38 AM MECHANICAL DESIGN TECHNICIAN Comment: ----ADDITIONAL INFORMATION---- This test was developed and its performa nce characteristics determined by [facility] in a manner co nsistent with CLIA requirements. This test has not bee n cleared or approved by the U.S. Food and Drug Admin istration. Glucose 5 0 - 15 mg/dL 10/19/2020 9:14 AM MECHANICAL DESIGN TECHNICIAN [facility] Protein, U 17 <26 mg/dL 10/19/2020 9:14 AM MECHANICAL DESIGN TECHNICIAN [facility] Comment: ----ADDITIONAL INFORMATION---- On 03/03/2017 the total protein assay me thod changed resulting in approximately a 15% increase in prote in values. Protein/Osmolality 0.26 <0.42 Ratio 10/19/2020 9:38 AM MECHANICAL DESIGN TECHNICIAN [facility] Comment: ----ADDITIONAL INFORMATION---- On 03/03/2017 the total protein assay me thod changed resulting in approximately a 15% increase in prote in values. Predicted 24 Hr Protein 197 mg/24 h 10/19/2020 9:38 AM MECHANICAL DESIGN TECHNICIAN [facility] Predicted Range 49-799 mg/24 h 10/19/2020 9:38 AM MECHANICAL DESIGN TECHNICIAN R LAURENT Hemoglobin, QL Negative Negative 10/19/2020 9:47 AM MECHANICAL DESIGN TECHNICIAN RE NA Specimen Anatomical Collection Method Collection Time Receive d Time (Source) Location / / Volume Laterality Urine (Urine, 10/19/2020 8:38 AM 10/19/19 21 8:38 Midstream) MECHANICAL DESIGN TECHNICIAN AM MECHANICAL DESIGN TECHNICIAN Landon Bal M.D. LAB URINE ORDERABLES Performing Organization Address City/State/ZIP Code Phon e Number [facility] - [address] [place], [place] [address] [place] [address] [facility] [address] (ABNORMAL) Complement C4 (10/19/2020 8:04 AM MECHANICAL DESIGN TECHNICIAN) P athologist Signature Complement C4, S 4 (L) 14 - 40 10/19/2020 [facility] mg/dL 12:10 PM MECHANICAL DESIGN TECHNICIAN Specimen Anatomical Collection Method Collection Time Receive d Time (Source) Location / / Volume Laterality Blood (Blood, 10/19/2020 8:04 AM 10/19/19 21 Venous) MECHANICAL DESIGN TECHNICIAN 11:04 AM MECHANICAL DESIGN TECHNICIAN Landon G Moder M.D. LAB BLOOD ADD-ON Performing Organization Address City/[facility]/ZIP Code Phon e Number [facility] [address] [place] [address] [address] [facility] [address] Laboratory Medicine and Pathology [address] [place] [address] Dr. CACERES Complement C3 (10/19/2020 8:04 AM MECHANICAL DESIGN TECHNICIAN) athologist Signature Complement C3, S 84 75 - 175 10/19/2020 [facility] mg/dL 11:57 AM MECHANICAL DESIGN TECHNICIAN Specimen Anatomical Collection Method Collection Time Receive d Time (Source) Location / / Volume Laterality Blood (Blood, 10/19/2020 8:04 AM 10/19/19 Venous) MECHANICAL DESIGN TECHNICIAN 11:04 AM MECHANICAL DESIGN TECHNICIAN Landon Bal M.D. LAB BLOOD ADD-ON Performing Organization Address [facility] Code Phon e Number [address] [place] [address] [place] [address] Laboratory Medicine and Pathology [address] [place] [address] Dr. CACERES (ABNORMAL) Sedimentation Rate (10/19/2020 8:04 AM MECHANICAL DESIGN TECHNICIAN) [facility] Method Time Signature Sedimentation 112 (H) 2 - 22 10/19/2020 DT Rate, B mm/h 9:27 AM MECHANICAL DESIGN TECHNICIAN Specimen Anatomical Collection Method Collection Time Receive d Time (Source) Location / / Volume Laterality Blood (Blood, 10/19/2020 8:04 AM 10/19/19 8:27 Venous) MECHANICAL DESIGN TECHNICIAN AM MECHANICAL DESIGN TECHNICIAN Landon Bal M.D. LAB BLOOD ADD-ON Performing Organization Address City/[facility]/ZIP Code Phon e Number [facility] - [address] [place], [place] [address] [facility] [place] [address] Laboratories-[facility] [address] DNA Double-Stranded (dsDNA) Antibodies, IgG (10/19/2020 8:03 AM MECHANICAL DESIGN TECHNICIAN) athologist Signature DNA 28.4 <30.0 10/19/2020 [facility] Double-Stranded (Negative) 5:45 PM MECHANICAL DESIGN TECHNICIAN Ab, IgG, S IU/mL Specimen Anatomical Collection Method Collection Time Receive d Time (Source) Location / / Volume Laterality Blood (Blood, 10/19/2020 8:03 AM 02/12/20 21 Venous) MECHANICAL DESIGN TECHNICIAN 10:33 AM MECHANICAL DESIGN TECHNICIAN Landon Bal M.D. LAB BLOOD ADD-ON Performing Organization Address City/State/ZIP Code Phon e Number [facility] [address] [place] [address] [facility] [place] [address] Laboratory Medicine and Pathology [address] [place] documented in this encounter Visit Diagnoses Diagnosis Lupus Systemic Erythematosus (HCC) - Afia justice documented in this encounter
--- OUTSIDE RECORDS SUMMARY | 2022-05-22 16:04 | XMS_ITS | Encounter Summary ---
:1965 Author Organization [facility] Address [address] [place] [address] Care Team Providers Name Role Phone Unavailable Primary Care Provider Unavailable Encounter Details Date Type Department Care Team Description 01/19/2020 Clinical Communication Division of [place], Landon Mosher, Rheumatology in [place], [place] [address] [place] [address] Social History Tobacco Use Types Packs/Day Years [...] er 09/23/2021 How often do you attend oriental orthodox or orthodoxy services? Never 09/23/2021 Do you belong to any clubs or organizations such as No 09/23/2021 oriental orthodox groups, unions, fraternal or athletic groups, [...] this encounter Miscellaneous Notes Telephone Encounter - Rosina Russo - 01/19/2020 3:19 PM CDT Shanda I called patient attempting to schedule visit and blood work. She would like to be able to see Dr. Rico again for her chest issues. She wanted to know if that would be possible along with her return visit here. documented in this encounter Plan of Treatment Upcoming Encounters Date Type Specialty Care Team Description 07/08/2022 Appointment Laboratory Medicine Pedro Donnelly, DIRECTOR OUTPATIENT SERVICES, C.N.P. [address] [place] [phone] (Claudia vrea) 07/08/2022 Office Visit Gastroenterology and Collin Trivedi Hepatology [place] [address] [place] [address] (Claudia rk) documented as of this encounter Visit Diagnoses Not on filedocumented in this encounter
--- OUTSIDE RECORDS SUMMARY | 2022-05-22 16:04 | XMS_ITS | Encounter Summary ---
:1965 Author Organization [facility] Address [address] [place] [address] Care Team Providers Name Role Phone Unavailable Primary Care Provider Unavailable Encounter Details Date Type Department Care Team Description 08/16/2020 Clinical Communication Division of Mally, Landon Mosher, Rheumatology in [place], [place] [address] [place] [address] Social History Tobacco Use Types Packs/Day Years [...] How often do you attend restorationism or yazidism services? Never 09/23/2021 Do you belong to [...] this encounter Miscellaneous Notes Telephone Encounter - Nancy Myers - 08/16/2020 1:[address] Bal's order was cancelled because GI told us she is already an existing GI patient. She however, canceled her scheduled face to face GI consult that was ordered by Dr. Joseph. UNTING SPECIALIST documented in this encounter Plan of Treatment Upcoming Encounters Date Type Specialty Care Team Description 07/08/2022 Appointment Laboratory Medicine Pedro Donnelly, LIME BURNER, C.N.P. [address] [place] [address] (Wo rk) 07/08/2022 Office Visit Gastroenterology and Collin Trivedi, Hepatology M.Juan [address] [place] [address] (Wo rk) documented as of this encounter Visit Diagnoses Not on filedocumented in this encounter
--- OUTSIDE RECORDS SUMMARY | 2022-05-22 16:04 | XMS_ITS | Encounter Summary ---
:1965 Author Organization [facility] Address [address] [place] [address] Care Team Providers Name Role Phone Unavailable Primary Care Provider Unavailable Reason for Visit Reason Comments Med Refill Encounter Details Date Type Department Care Team Description 08/12/2020 Refill Division of Rheumatology in [facility], Landon Mosher M.D. Med Refill [place], [place] [address] [place] [phone] Social History Tobacco Use Types Packs/Day [...] er 09/23/2021 How often do you attend islam or roman catholic services? Never 09/23/2021 Do you belong to any clubs or organizations such as No 09/23/2021 islam groups, unions, fraternal or athletic groups, or [...] Encounter - Nicole Hardy M.S.N., R.N. - 08/15/2020 4:[address] MAINTENANCE SUPERVISOR Prescription renewal request for azathioprine (Imuran) received from pharmacy. HISTORY OF PRESENT ILLNESS Last Rheum visit: 12/12/2019 with Landon Bal MD Future office visit: ordered, not yet scheduled Last monitoring labs/eye exam: last labs were 01/24/2020: outside protocol parameters. Labs needed every 2 months for this medication Prescription request matches current plan of care. Prescription request matches a current prescription in the Medication List. ASSESSMENT/PLAN Prescription request pended for provider review due to missing monitoring labs. 30 day supply pended. T OF WAY MAINTENANCE SUPERVISOR documented in this encounter Plan of Treatment Upcoming Encounters Date Type Specialty Care Team Description 07/08/2022 Appointment Laboratory Medicine Pedro Donnelly, INTAKE CLINICIAN, C.N.P. [address] [place] [phone] (Claudia vera) 07/08/2022 Office Visit Gastroenterology and Collin Trivedi Hepatology [place] [address] [place] [phone] (Claudia vera) documented as of this encounter Visit Diagnoses Not on filedocumented in this encounter
--- OUTSIDE RECORDS SUMMARY | 2022-05-22 16:04 | XMS_ITS | Encounter Summary ---
:1965 Author Organization [facility] Address [address] [place] [address] Care Team Providers Name Role Phone Unavailable Primary Care Provider Unavailable Encounter Details Date Type Department Care Team Description 01/31/2020 Orders Only Division of Mally, Landon Mosher, Lupus System ic Rheumatology in M.DSarina Erythematosu s ([facility]) [place], [place] (Primary Dx) [address] [place] [address] Social History Tobacco Use Types Packs/Day Years [...] er 09/23/2021 How often do you attend anabaptism or latter-day services? Never 09/23/2021 Do you belong to any clubs or organizations such as No 09/23/2021 anabaptism groups, unions, fraternal or athletic groups, or [...] Description 07/08/2022 Appointment Laboratory Medicine Pedro Donnelly, LEAD PRESSMAN, C.N.P. [address] [place] [phone] (Claudia vera) 07/08/2022 Office Visit Gastroenterology and Collin Trivedi, Hepatology M.DSarina [address] [place] [address] (Claudia vera) documented as of this encounter Visit Diagnoses Diagnosis Lupus Systemic Erythematosus (HCC) - [facility] vinh documented in this encounter Additional Health Concerns Infection Onset Date Last Indicated Resolved Time COVID19 Pending 01/23/2020 01/23/2020 02/15/2020 8:07 AM CDT documented as of this encounter
--- OUTSIDE RECORDS SUMMARY | 2022-05-22 16:04 | XMS_ITS | Encounter Summary ---
:1965 Author Organization [facility] Address [address] [place] [address] Care Team Providers Name Role Phone Unavailable Primary Care Provider Unavailable Reason for Visit Reason Comments COVID Inquiry Encounter Details Date Type Department Care Team Description 09/12/2020 Clinical Communication Division of [facility], YNES Galvan VIAriel Inquiry Rheumatology in [place], [place] [address] [place] [address] Social History Tobacco Use Types Packs/Day Years [...] er 09/23/2021 How often do you attend bahai or mu-ism services? Never 09/23/2021 Do you belong to any clubs or organizations such as No 09/23/2021 bahai groups, unions, fraternal or athletic groups, or [...] Description 07/08/2022 Appointment Laboratory Medicine Pedro Donnelly, SOLID TIRE TUBER MACHINE OPERATOR, C.N.P. [address] [place] [phone] (Claudia vera) 07/08/2022 Office Visit Gastroenterology and Collin Trivedi, Hepatology M.DSarina [address] [place] [phone] (Claudia vera) documented as of this encounter Visit Diagnoses Not on filedocumented in this encounter
--- OUTSIDE RECORDS SUMMARY | 2022-05-22 16:04 | XMS_ITS | Encounter Summary ---
:1965 Author Organization [facility] Address [address] [place] [address] Care Team Providers Name Role Phone Unavailable Primary Care Provider Unavailable Reason for Referral MRI/CAT/PET Scan (Routine) - Closed Specialty Diagnoses / Procedures Referred By Contact Refer red To Contact Radiology Diagnoses Lung Interstitial Disease (HCC) Morris Rico M.D. [facility] Procedures CT Chest without IV Contrast 200 [place] [address] Referral ID Status Reason Start Date Expiration Date Visits Requ ested Visits Authorized [id number] Closed 01/23/2020 01/22/2021 1 1 Encounter Details Date Type Department Care Team Description 01/23/2020 Orders Only Division of Pulmonary Morris Rico, Lupus Erythematosus (Primary Dx); Medicine in [place] Lung Interstitial Disease (HCC) [place] [address] [facility] 200 [place] [phone] Social History Tobacco Use Types Packs/Day Years [...] How often do you attend caodaism or baptist services? Never 09/23/2021 Do you [...] Description 07/08/2022 Appointment Laboratory Medicine Pedro Donnelly, CPC, C.N.P. [address] [place] [phone] (Claudia vera) 07/08/2022 Office Visit Gastroenterology and Collin Trivedi Hepatology Chloe [address] [place] [phone] (Claudia vera) documented as of this encounter Results Pulmonary Function Tests (02/16/2020 1:54 PM CDT) P athologist Signature VC MAX POST 3.13 L 02/16/2020 [facility] S[facility] 4:30 PM CDT SUITE PostFVC 3.13 L 02/16/2020 [facility] S[facility] 4:30 PM CDT SUITE PostFEV1 2.56 L 02/16/2020 [facility] 4:30 PM CDT SUITE FEV1/FVC POST 81.81 % 02/16/2020 [facility] 4:30 PM CDT SUITE FEF 25-75 % 2.81 L/s 02/16/2020 [facility] POST 4:30 PM CDT SUITE PEF POST 6.61 L/s 02/16/2020 [facility] PM CDT SUITE FET POST 8.05 sec 02/16/2020 [facility] [place] 4:30 PM CDT SUITE DLCO SINGLE 14.30 ml/(min*mm 02/16/2020 [facility] BREATH POST Hg) 4:30 PM CDT SUITE DLCOC SINGLE 16.30 ml/(min*mm 02/16/2020 [facility] BREATH POST Hg) 4:30 PM CDT SUITE HB 10.00 g(Hb)/dL 02/16/2020 [facility] 4:30 PM CDT SUITE VA SINGLE 4.14 L 02/16/2020 [facility] BREATH POST 4:30 PM CDT SUITE TLC POST 5.25 L 02/16/2020 [facility] 4:30 PM CDT SUITE VC POST 3.32 L 02/16/2020 [facility] 4:30 PM CDT SUITE FRCPLETH POST 2.15 L 02/16/2020 [facility] 4:30 PM CDT SUITE RV 1.93 L 02/16/2020 [facility] 4:30 PM CDT SUITE RV % TLC POST 36.79 % 02/16/2020 [facility] 4:30 PM CDT SUITE VC MAX PRE 3.00 L 02/16/2020 [facility] 4:30 PM CDT SUITE FVC 2.98 L 02/16/2020 [facility] 4:30 PM CDT SUITE FEV1 2.32 L 02/16/2020 [facility] 4:30 PM CDT SUITE FEV1/FVC 77.84 % 02/16/2020 [facility] 4:30 PM CDT SUITE ADX72-94% 2.03 L/s 02/16/2020 [facility] 4:30 PM CDT SUITE PEF PRE 6.24 L/s 02/16/2020 [facility] 4:30 PM CDT SUITE FET PRE 8.24 sec 02/16/2020 [facility] 4:30 PM CDT SUITE SUBSTANCE POST NaN 02/16/2020 [facility] 4:30 PM CDT SUITE DOSE POST NaN 02/16/2020 [facility] 4:30 PM CDT SUITE % PRED VC MAX 91.89 % 02/16/2020 [facility] 4:30 PM CDT SUITE FVC% 91.40 % 02/16/2020 [facility] 4:30 PM CDT SUITE FEV1% 89.57 % 02/16/2020 [facility] 4:30 PM CDT SUITE % PRED 97.43 % 02/16/2020 [facility] [place] FEV1/FVC 4:30 PM CDT SUITE % PRED FEF 83.04 % 02/16/2020 [facility] [place] 25-75% 4:30 PM CDT SUITE % PRED PEF 107.43 % 02/16/2020 [facility] 4:30 PM CDT SUITE PRED VC MAX 3.26 L 02/16/2020 [facility] 4:30 PM CDT SUITE PRED FVC 3.26 L 02/16/2020 [facility] 4:30 PM CDT SUITE PRED FEV 1 2.59 L 02/16/2020 [facility] 4:30 PM CDT SUITE PRED FEV1/FVC 79.89 % 02/16/2020 [facility] 4:30 PM CDT SUITE PRED FEF 2.45 L/s 02/16/2020 [facility] 25-75% 4:30 PM CDT SUITE PRED PEF 5.81 L/s 02/16/2020 [facility] 4:30 PM CDT SUITE Specimen (Source) Anatomical Collection Method Collection Time Re ceived Time Location / / Volume Laterality 02/16/2020 1:54 PM CDT Narrative This result has an attachment that is no t available. Morris Rico M.D. PFT ORDERABLES Performing Organization Address City/State/ZIP Code Phon e Number [facility] CT Chest without IV Contrast (02/16/2020 1:22 [...] since 08/18/2019. Stable pulmonary groundglass abnormality. Morris GRACIA CT PROCEDURES documented in this encounter Visit Diagnoses Diagnosis Lupus Erythematosus - Primary Lung Interstitial Disease (HCC) Lung Interstitial Disease (HCC) documented in this encounter
--- OUTSIDE RECORDS SUMMARY | 2022-05-22 16:04 | XMS_ITS | Encounter Summary ---
:1965 Author Organization [facility] Address [address] [place] [address] Care Team Providers Name Role Phone Unavailable Primary Care Provider Unavailable Encounter Details Date Type Department Care Team Description 01/23/2020 Clinical Communication Division of Pulmonary Jacky, Dominic Bahena, [facility] [place] [address] [facility] [address] [place] [phone] Social History Tobacco Use Types Packs/Day Years [...] How often do you attend orthodoxy or restoration services? Never 09/23/2021 Do you [...] this encounter Miscellaneous Notes Telephone Encounter - Morris Rico M.D. - 01/23/2020 2:16 PM CDT done Telephone Encounter - Jass Connolly - 01/23/2020 2:08 PM CDT Patient scheduled with you on February 15. ? Testing. Please place orders. Thank you! documented in this encounter Plan of Treatment Upcoming Encounters Date Type Specialty Care Team Description 07/08/2022 Appointment Laboratory Medicine Pedro Donnelly, SORTING AND FOLDING SUPERVISOR, C.N.P. [address] [place] [phone] (Claudia vera) 07/08/2022 Office Visit Gastroenterology and Collin Trivedi Hepatology Chloe [address] [place] [address] (Claudia vera) documented as of this encounter Visit Diagnoses Not on filedocumented in this encounter Additional Health Concerns Infection Onset Date Last Indicated Resolved Time COVID19 Pending 01/23/2020 01/23/2020 02/15/2020 8:07 AM CDT documented as of this encounter
--- OUTSIDE RECORDS SUMMARY | 2022-05-22 16:04 | XMS_ITS | Encounter Summary ---
:1965 Author Organization [facility] Address [address] [place] [address] Care Team Providers Name Role Phone Unavailable Primary Care Provider Unavailable Encounter Details Date Type Department Care Team Description 10/01/2020 Orders Only Division of Rheumatology Landon Bal, High Risk Medication in [facility] [place] (Primary Dx) [address] [place] [phone] Social History Tobacco Use Types Packs/Day [...] How often do you attend anabaptist or holiness services? Never 09/23/2021 Do you belong to [...] Description 07/08/2022 Appointment Laboratory Medicine Pedro Donnelly, MESSENGER OFFICE, C.N.P. [address] [place] [phone] (Cluadia vera) 07/08/2022 Office Visit Gastroenterology and Collin Trivedi Hepatology M.DSarina [address] [place] [phone] (Claudia vera) documented as of this encounter Visit Diagnoses Diagnosis High Risk Medication - Primary documented in this encounter
--- OUTSIDE RECORDS SUMMARY | 2022-05-22 16:04 | XMS_ITS | Encounter Summary ---
:1965 Author Organization [facility] Address [address] [place] [address] Care Team Providers Name Role Phone Unavailable Primary Care Provider Unavailable Reason for Visit Reason Comments Lab Monitoring collected 08/29/20 Encounter Details Date Type Department Care Team Description 09/06/2020 Clinical Communication [facility] Rheumatology in [place] (collected [place], [place] 08/29/20) [address] [place] [address] Social History Tobacco Use Types Packs/Day Years [...] How often do you attend catholic or faith services? Never 09/23/2021 Do you [...] Telephone Encounter - Vesna Guzmán R.N. - 09/10/2020 10:42 AM BREAKER UP ASSESSMENT Rheumatology Monitoring Labs completed on 08/29/2020 were reviewed per Rheumatology division parameters. Labs reviewed: AST, hemoglobin, leukocytes, platelets leukocytes, platelets are outside of the parameters. External labs were entered into Labs Tab and sent for scanning. PLAN Provider notified of abnormal lab(s). Please see patient online portal message on 09/03/2020 regarding message that was sent to provider regarding abnormal labs results. Patient was informed to hold her Azathioprine until she hears back from the provider. WBC 2.66 (normal 5.00-10.00) Platelets 136 (normal 150-450) KER UP documented in this encounter Plan of Treatment Upcoming Encounters Date Type Specialty Care Team Description 07/08/2022 Appointment Laboratory Medicine Pedro Donnelly, TEACHERS ASSISTANT, C.N.P. [address] [place] [phone] (Claudia vera) 07/08/2022 Office Visit Gastroenterology and Collin Trivedi Hepatology Chloe [address] [place] [phone] (Claudia vera) documented as of this encounter Procedures Procedure Name Priority Date/Time Associated Diagnosis Comme nts CBC WITH DIFFERENTIAL, B Routine 08/29/2020 Res ults for this procedure are i n the results section. ALANINE AMINOTRANSFERASE Routine 08/29/2020 Res ults for this (ALT), S/P procedure are i n the results section. documented in this encounter Results ALT (Alanine Aminotransferase) (08/29/2020) P athologist Signature EXT AST 32 12 - 35 Specimen (Source) Anatomical Location Collection Method / Collectio n Time Received Time / Laterality Volume Blood (Blood, Venous) Resulting Agency Comment [facility] Landon Bal M.D. LAB BLOOD ADD-ON (ABNORMAL) CBC with Differential, Blood (08/29/2020) Analysis Performed At Patho logist Time Signature EXT Platelet 136 (A) 150 - 450 Count EXT Hemoglobin 11.1 (A) 12 - 15.5 EXT White Blood 2.7 (A) 5.0 - 10.0 Cell (WBC) Count Specimen (Source) Anatomical Location Collection Method / Collectio n Time Received Time / Laterality Volume Blood (Blood, Venous) Resulting Agency Comment [facility] Landon Bal M.D. LAB BLOOD ADD-ON documented in this encounter Visit Diagnoses Not on filedocumented in this encounter
--- OUTSIDE RECORDS SUMMARY | 2022-05-22 16:04 | XMS_ITS | Encounter Summary ---
:1965 Author Organization [facility] Address [address] [place] [address] Care Team Providers Name Role Phone Unavailable Primary Care Provider Unavailable Reason for Visit Reason Comments Med Refill Encounter Details Date Type Department Care Team Description 09/03/2020 Refill Department of Cardiovascular Gaudencio Dukes Med [facility] [address] [facility] [address] [place] [phone] [place] [address] [phone] (Wo rk) Social History Tobacco Use Types [...] How often do you attend episcopalian or mosque services? Never 09/23/2021 Do you belong to [...] Description 07/08/2022 Appointment Laboratory Medicine Pedro Donnelly, SUMMER BABYSITTER, C.N.P. [address] [place] [phone] (Claudia vera) 07/08/2022 Office Visit Gastroenterology and Collin Trivedi, Hepatology M.DSarina [address] [place] [phone] (Claudia vera) documented as of this encounter Visit Diagnoses Not on filedocumented in this encounter
--- OUTSIDE RECORDS SUMMARY | 2022-05-22 16:04 | XMS_ITS | Encounter Summary ---
:1965 Author Organization [facility] Address [address] [place] [address] Care Team Providers Name Role Phone Unavailable Primary Care Provider Unavailable Reason for Visit Reason Comments Med Refill Encounter Details Date Type Department Care Team Description 09/11/2020 Refill Division of Rheumatology in [facility], Landon Mosher M.D. Med Refill [place], [place] [address] [place] [address] Social History Tobacco Use Types Packs/Day [...] er 09/23/2021 How often do you attend faith or scientology services? Never 09/23/2021 Do you belong to any clubs or organizations such as No 09/23/2021 faith groups, unions, fraternal or athletic groups, or [...] Telephone Encounter - Vesna Pringle R.N. - 09/18/2020 10:32 AM LIFE CLAIMS EXAMINER Prescription renewal request for azathioprine (Imuran) received from pharmacy. HISTORY OF PRESENT ILLNESS Last Rheum visit: 12/12/19 with Landon Bal MD Future office visit: 10/19/19 Last monitoring labs/eye exam: 08/29/20: within protocol parameters. Prescription request matches current plan of care. Prescription request matches a current prescription in the Medication List. ASSESSMENT/PLAN Prescription request renewed per nursing protocol. CLAIMS EXAMINER documented in this encounter Plan of Treatment Upcoming Encounters Date Type Specialty Care Team Description 07/08/2022 Appointment Laboratory Medicine Pedro Donnelly APRN, C.N.P. [address] [place] [phone] (Claudia vera) 07/08/2022 Office Visit Gastroenterology and Collin Trivedi Hepatology Chloe [address] [place] [address] (Claudia vera) documented as of this encounter Visit Diagnoses Not on filedocumented in this encounter
--- OUTSIDE RECORDS SUMMARY | 2022-05-22 16:04 | XMS_ITS | Encounter Summary ---
:1965 Author Organization [facility] Address [address] [place] [address] Care Team Providers Name Role Phone Unavailable Primary Care Provider Unavailable Encounter Details Date Type Department Care Team Description 01/24/2020 Hospital Encounter Department of [place], Landon Lupus [facility] Laboratory Medicine Chloe Mosher ([facility]) and Pathology, [facility] in [place], [place] [address] [place] [address] Social History Tobacco Use Types Packs/Day Years [...] How often do you attend advent or voodoo services? Never 09/23/2021 Do you belong to [...] Description 07/08/2022 Appointment Laboratory Medicine Pedro Donnelly, DOMESTIC HELPER, C.N.P. [address] [place] [phone] (Wo rk) 07/08/2022 Office Visit Gastroenterology and Collin Trivedi, Hepatology Chloe [address] [place] [phone] (Claudia rk) documented as of this encounter Procedures Procedure Name Priority Date/Time Associated Diagnosis Comme nts SARS-COV-2 IGG AB, Routine 01/24/2020 11:00 Lupus Systemic Res ults for this SERUM AM CDT Erythematosus (HCC) procedur e are in the results section. DNA DOUBLE-STRANDED Routine 01/24/2020 11:00 Lupus Systemic Re sults for this (DSDNA) ABS, IGG, S AM CDT Erythematosus (HCC) p rocedure are in the results section. SEDIMENTATION RATE, B Routine 01/24/2020 11:00 Lupus Systemic Results for this AM CDT Erythematosus (HCC) procedur e are in the results section. CBC WITH Routine 01/24/2020 11:00 Lupus Systemic Results f or this DIFFERENTIAL, B AM CDT Erythematosus (HCC) proce dure are in the results section. COMPL C3, S Routine 01/24/2020 11:00 Lupus Systemic Results f or this AM CDT Erythematosus (HCC) procedur e are in the results section. COMPLEMENT C4, S Routine 01/24/2020 11:00 Lupus Systemic Resul ts for this AM CDT Erythematosus (HCC) procedur e are in the results section. C-REACTIVE PROTEIN Routine 01/24/2020 11:00 Lupus Systemic Res ults for this (CRP), S/P AM CDT Erythematosus (HCC) procedur e are in the results section. documented in this encounter Results (ABNORMAL) Complement C4 (01/24/2020 11:00 AM CDT) P athologist Signature Complement C4, <3 (L) 14 - 40 01/24/2020 [facility] S mg/dL 4:38 PM CDT Specimen Anatomical Collection Method Collection Time Receive d Time (Source) Location / / Volume Laterality Blood (Blood, 01/24/2020 11:00 01/24/2020 1:29 Venous) AM CDT PM CDT Landon Bal M.D. LAB BLOOD ADD-ON Performing Organization Address City/State/ZIP Code Phon e Number [facility] [address] [place], [place] [address] [facility] [place] [address] Laboratory Medicine and Pathology [address] [place] DNA Double-Stranded (dsDNA) Antibodies, IgG (01/24/2020 11:00 AM CDT) athologist Signature DNA 21.9 <30.0 01/25/2020 [facility] Double-Stranded (Negative) 12:08 PM CDT Ab, IgG, S IU/mL Specimen Anatomical Collection Method Collection Time Receive d Time (Source) Location / / Volume Laterality Blood (Blood, 01/24/2020 11:00 01/24/2020 2:02 Venous) AM CDT PM CDT Landon Bal M.D. LAB BLOOD ADD-ON Performing Organization Address City/State/ZIP Code Phon e Number [facility] [address] [place] [address] [facility] [place] [address] Laboratory Medicine and Pathology [address] [place] [address] Dr. CACERES (ABNORMAL) CRP (C-Reactive Protein) (01/24/2020 11:00 AM CDT) athologist Signature C-Reactive 13.3 (H) <=8.0 mg/L 01/24/2020 [facility] Protein (CRP), 12:06 PM CDT S Specimen Anatomical Collection Method Collection Time Receive d Time (Source) Location / / Volume Laterality Blood (Blood, 01/24/2020 11:00 01/24/2020 Venous) AM CDT 11:49 AM CDT Landon Bal M.D. LAB BLOOD ADD-ON Performing Organization Address City/State/ZIP Code Phon e Number [facility] - [address] [place], [place] [address] [facility] [place] [address] [facility] [address] (ABNORMAL) Sedimentation Rate (01/24/2020 11:00 AM CDT) [facility] Method Time Signature Sedimentation 122 (H) 2 - 22 01/24/2020 [facility] Rate, B mm/h 2:32 PM CDT Specimen Anatomical Collection Method Collection Time Receive d Time (Source) Location / / Volume Laterality Blood (Blood, 01/24/2020 11:00 01/24/2020 Venous) AM CDT 11:31 AM CDT Landon Bal M.D. LAB BLOOD ADD-ON Performing Organization Address City/State/ZIP Code Phon e Number [facility] - 200 [place], [place] [address] [facility] [place] [address] [facility] [address] [facility] (ABNORMAL) CBC with Differential, Blood (01/24/2020 11:00 AM CDT) [facility] Method Time Signature Hemoglobin 10.0 (L) 11.6 [...] M.D. LAB BLOOD ADD-ON Performing Organization Address City/[facility] Code Phon e Number [facility] - [address] [place], [place] [address] [facility] [place] [address] [facility] [address] [facility] SARS Coronavirus 2 IgG Ab, JOSE, Serum (01/24/2020 11:00 AM CDT) athologist Signature SARS-CoV-2 IgG Negative Negative 01/24/2020 [facility] Ab 10:53 PM CDT Comment: No IgG antibodies to SARS-CoV-2 detected . ?? Negative results may occur in serum agus ected too soon following infection, or in immunosuppres sed patients. ?? Follow-up testing with a molecular test is recommended in symptomatic patients. ??This test gracie uld not be used to exclude active/recent COVID-19. ?? Testing was performed using the EUROIMMUN Zsce-UYFM-GdN-2 JOSE (IgG), which has received Emergency Use Authori zation (EUA) by the U.S. Food and Drug Administration . ?? Fact sheets for this EUA assay can be fo und at the following links: ?? Factsheet for healthcare Providers: ?? https://www.fda.gov/media/789426/downloa d Factsheet for healthcare Patients: ?? https://www.fda.gov/media/583760/downloa d Specimen Anatomical Collection Method Collection Time Receive d Time (Source) Location / / Volume Laterality Blood (Blood, 01/24/2020 11:00 01/24/2020 1:53 Venous) AM CDT PM CDT Landon Bal M.D. LAB MICROBIOLOGY - BLOOD ORD ERABLES Performing Organization Address City/[facility] Code Phon e Number [facility] [address] [place], [place] [address] [facility] [place] [address] Laboratory Medicine and Pathology [address] CACERES Complement C3 (01/24/2020 11:00 AM CDT) athologist Signature Complement C3, S 87 75 - 175 01/24/2020 [facility] mg/dL 3:36 PM CDT Specimen Anatomical Collection Method Collection Time Receive d Time (Source) Location / / Volume Laterality Blood (Blood, 01/24/2020 11:00 01/24/2020 1:29 Venous) AM CDT PM CDT Landon Bal M.D. LAB BLOOD ADD-ON Performing Organization Address City/State/ZIP Code Phon e Number [facility] [address] [place] [address] [place] [address] Laboratory Medicine and Pathology [address] CACERES documented in this encounter Visit Diagnoses Diagnosis Lupus Systemic Erythematosus (HCC) documented in this encounter Additional Health Concerns Infection Onset Date Last Indicated Resolved Time COVID19 Pending 01/23/2020 01/23/2020 02/15/2020 8:07 AM CDT documented as of this encounter
--- OUTSIDE RECORDS SUMMARY | 2022-05-22 16:05 | XMS_ITS | Encounter Summary ---
:1965 Author Organization [facility] Address [address] [place] [address] Care Team Providers Name Role Phone Unavailable Primary Care Provider Unavailable Reason for Referral Outpatient (Routine) - Closed Specialty Diagnoses / Procedures Referred By Contact Refer red To Contact Radiology Diagnoses Lupus Systemic Erythematosus (HCC) Landon Bal M.D. [facility] Procedures MR Brain without and with IV Contrast MR Brain Angiogram without and with IV Contrast [place] MRI BRAIN WO/W CNTRST 200 [place] [address] Referral ID Status Reason Start Date Expiration Date Visits Requ ested Visits Authorized [id number] Closed 11/17/2019 11/16/2020 1 1 Encounter Details Date Type Department Care Team Description 11/17/2019 Orders Only Division of Landon Bal, Lupus System ic Rheumatology in Chloe Erythematosu s ([facility]) [place], [place] (Primary Dx) [address] [place] [phone] Social History Tobacco Use Types Packs/Day Years [...] How often do you attend restoration or restoration services? Never 09/23/2021 Do you [...] Description 07/08/2022 Appointment Laboratory Medicine Pedro Donnelly, LEARNING DEVELOPER, C.N.P. [address] [place] [phone] (Claudia vera) 07/08/2022 Office Visit Gastroenterology and Collin Trivedi Hepatology M.Juan [address] [place] [address] (Claudia rk) documented as of this encounter Results MR Brain without and with IV Contrast (12/08/2019 10:50 AM CDT) Anatomical Region Laterality Modality Head, Brain, Neuroradiology RST LOS, Neuroradiology MOLLY N/A Magnetic Resonance LOS, Neuroradiology FLA [facility] Specimen (Source) Anatomical Collection Method Collection Time Re ceived Time Location / / Volume Laterality 12/08/2019 10:21 AM CDT Impressions 12/08/2019 11:14 AM CDT Small homogeneously enhancing 5 mm x 4 mm lesion along the floor of the right anterior cranial fossa, demons trates broad contact with the dura, most likely a small meningioma. ??No parenchy mal edema. Similar 10 mm x 7 mm x 8 mm (AP, RL, SI) left parietal parafalcine e nhancing presumed meningioma, extends to involve the superior sagittal sinus, whi ch remains patent. No additional areas of abnormal intracranial contrast enhanc ement. No diffusion restriction. Mild leukoaraiosis. Benign appearing enhancem ent in the left temporal parietal calvarium. Multiple bilateral parotid ly mph nodes, a few of which are mildly prominent. Remainder unremarkable. Narrative 12/08/2019 11:14 AM CDT EXAM: MR BRAIN WITHOUT AND WITH IV CONTRAST COMPARISON: None Procedure Note Argelia Thomson M.D. - 12/08/2019Fo rmatting of this note might be different from the original. EXAM: MR BRAIN WITHOUT AND WITH IV CONTR AST COMPARISON: None IMPRESSION: Small homogeneously enhancing 5 mm x 4 m m lesion along the floor of the right anterior cranial fossa, demons trates broad contact with the dura, most likely a small meningioma. No parenchyma l edema. Similar 10 mm x 7 mm x 8 mm (AP, RL, SI) left parietal parafalcine e nhancing presumed meningioma, extends to involve the superior sagittal sinus, whi ch remains patent. No additional areas of abnormal intracranial contrast enhanc ement. No diffusion restriction. Mild leukoaraiosis. Benign appearing enhancem ent in the left temporal parietal calvarium. Multiple bilateral parotid ly mph nodes, a few of which are mildly prominent. Remainder unremarkable. Landon GRACIA MRI PROCEDURES documented in this encounter Visit Diagnoses Diagnosis Lupus Systemic Erythematosus (HCC) - [facility] Lupus Systemic Erythematosus (HCC) documented in this encounter
--- OUTSIDE RECORDS SUMMARY | 2022-05-22 16:05 | XMS_ITS | Encounter Summary ---
:1965 Author Organization [facility] Address [address] [place] [address] Care Team Providers Name Role Phone Unavailable Primary Care Provider Unavailable Encounter Details Date Type Department Care Team Description 10/17/2019 Ancillary Procedure Department of Ophthalmology in [place], [place] [address] [place] [phone] Social History Tobacco Use Types Packs/Day [...] How often do you attend congregation or jainism services? Never 09/23/2021 Do you [...] Care Team Description 07/08/2022 Appointment Laboratory Medicine Pdero Donnelly, SECURITY INFRASTRUCTURE ENGINEER, C.N.P. [address] [place] [phone] (Wo rk) 07/08/2022 Office Visit Gastroenterology and Collin Trivedi, Hepatology M.DSarina [address] [place] [address] (Wo rk) documented as of this encounter Visit Diagnoses Not on filedocumented in this encounter
--- OUTSIDE RECORDS SUMMARY | 2022-05-22 16:05 | XMS_ITS | Encounter Summary ---
:1965 Author Organization [facility] Address [address] [place] [address] Care Team Providers Name Role Phone Unavailable Primary Care Provider Unavailable Encounter Details Date Type Department Care Team Description 10/07/2019 Orders Only Department of Amelia Blanco High Risk Medication Ophthalmology in [address] [place] [address] (Primary Dx) [place], [place] [address] [place] [phone] [place] [address] [phone] Social History Tobacco Use Types Packs/Day Years [...] er 09/23/2021 How often do you attend jain or jainism services? Never 09/23/2021 Do you belong to any clubs or organizations such as No 09/23/2021 jain groups, unions, fraternal or athletic groups, or [...] Description 07/08/2022 Appointment Laboratory Medicine Pedro Donnelly, SPEECH CORRECTION ASSISTANT, C.N.P. [address] [place] [phone] (Wo rk) 07/08/2022 Office Visit Gastroenterology and Collin Trivedi, Hepatology MAyala [address] [place] [address] (Wo rk) documented as of this encounter Results Fundus Photos - OU - Both Eyes (10/14/2019 2:40 PM PROCESSOR SOLID PROPELLANT) Specimen (Source) Anatomical Location Collection Method / Collectio n Time Received Time / Laterality Volume Narrative OPHTHALMOLOGY IMAGING EXAM - 10/17/19 20 9:10 AM PROCESSOR SOLID PROPELLANT Right Eye Field of view is ultra-wide view. Fundus photo type obtained is Color. Left Eye Field of view is ultra-wide view. Fundus photo type obtained is Color. Notes Color photos: Consistent with exam both eyes ?? Eduarda Cruz M.D. OPHTH PHOTOGRAPHY Performing Organization Address City/State/ZIP Code Phon e Number OPHTHALMOLOGY IMAGING EXAM Fundus Photos - OU - Both Eyes (10/14/2019 2:39 PM PROCESSOR SOLID PROPELLANT) Specimen (Source) Anatomical Location Collection Method / Collectio n Time Received Time / Laterality Volume Narrative OPHTHALMOLOGY IMAGING EXAM - 10/17/19 9:10 AM PROCESSOR SOLID PROPELLANT Right Eye Field of view is ultra-wide view. Fundus photo type obtained is Autofluorescence. Left Eye Field of view is ultra-wide view. Fundus photo type obtained is Autofluorescence. Notes Color photos: Consistent with exam both eyes ?? Eduarda Cruz M.D. OPHTH PHOTOGRAPHY Performing Organization Address City/State/ZIP Code Phon e Number OPHTHALMOLOGY IMAGING EXAM documented in this encounter Visit Diagnoses Diagnosis High Risk Medication - Primary High Risk Medication documented in this encounter
--- OUTSIDE RECORDS SUMMARY | 2022-05-22 16:05 | XMS_ITS | Encounter Summary ---
:1965 Author Organization [facility] Address [address] [place] [address] Care Team Providers Name Role Phone Unavailable Primary Care Provider Unavailable Encounter Details Date Type Department Care Team Description 10/12/2019 Orders Only Department of Lolis Lozada Retinal Ophthalmology in [place]. Bilateral (Primary [place], [place] [address] [facility] Dx) [address] [place] [phone] Social History Tobacco Use Types Packs/Day Years [...] How often do you attend restorationism or synagogue services? Never 09/23/2021 Do you belong to [...] Description 07/08/2022 Appointment Laboratory Medicine Pedro Donnelly, BOTTOM IRONER, C.N.P. [address] [place] [phone] (Claudia vera) 07/08/2022 Office Visit Gastroenterology and Collin Trivedi, Hepatology M.DSarina [address] [place] [phone] (Claudia vera) documented as of this encounter Visit Diagnoses Diagnosis Hemorrhage Retinal Bilateral - Primary documented in this encounter
--- OUTSIDE RECORDS SUMMARY | 2022-05-22 16:05 | XMS_ITS | Encounter Summary ---
:1965 Author Organization [facility] Address [address] [place] [address] Care Team Providers Name Role Phone Unavailable Primary Care Provider Unavailable Encounter Details Date Type Department Care Team Description 10/14/2019 Ancillary Department of Eduarda Cruz High Risk Procedure Ophthalmology cr Pope M.D. [place], [place] [address] [facility] [address] [place] [phone] Social History Tobacco Use Types Packs/Day Years [...] er 09/23/2021 How often do you attend methodist or restoration services? Never 09/23/2021 Do you belong to any clubs or organizations such as No 09/23/2021 methodist groups, unions, fraternal or athletic groups, or [...] Description 07/08/2022 Appointment Laboratory Medicine Pedro Donnelly, HAZARDOUS WASTE REMOVER, C.N.P. [address] [place] [phone] (Wo rk) 07/08/2022 Office Visit Gastroenterology and Collin Trivedi Hepatology Chloe [address] [place] [address] (Wo rk) documented as of this encounter Procedures Procedure Name Priority Date/Time Associated Diagnosis Comme nts FUNDUS PHOTOS - OU Routine 10/14/2019 2:40 PM High Risk Medica tion Results for this - BOTH EYES MULTIFOCAL BUTTON GRINDER procedure are i n the results section. FUNDUS PHOTOS - OU Routine 10/14/2019 2:39 PM High Risk Medica tion Results for this - BOTH EYES MULTIFOCAL BUTTON GRINDER procedure are i n the results section. documented in this encounter Results Fundus Photos - OU - Both Eyes (10/14/2019 2:40 PM MULTIFOCAL BUTTON GRINDER) Specimen (Source) Anatomical Location Collection Method / Collectio n Time Received Time / Laterality Volume Narrative OPHTHALMOLOGY IMAGING EXAM - 10/17/19 20 9:10 AM MULTIFOCAL BUTTON GRINDER Right Eye Field of view is ultra-wide view. Fundus photo type obtained is Color. Left Eye Field of view is ultra-wide view. Fundus photo type obtained is Color. Notes Color photos: Consistent with exam both eyes ?? Eduarda Cruz M.D. OPHTH PHOTOGRAPHY Performing Organization Address City/State/ZIP Code Phon e Number OPHTHALMOLOGY IMAGING EXAM Fundus Photos - OU - Both Eyes (10/14/2019 2:39 PM MULTIFOCAL BUTTON GRINDER) Specimen (Source) Anatomical Location Collection Method / Collectio n Time Received Time / Laterality Volume Narrative OPHTHALMOLOGY IMAGING EXAM - 10/17/19 20 9:10 AM MULTIFOCAL BUTTON GRINDER Right Eye Field of view is ultra-wide view. Fundus photo type obtained is Autofluorescence. Left Eye Field of view is ultra-wide view. Fundus photo type obtained is Autofluorescence. Notes Color photos: Consistent with exam both eyes ?? Eduarda Cruz M.D. OPHTH PHOTOGRAPHY Performing Organization Address City/State/ZIP Code Phon e Number OPHTHALMOLOGY IMAGING EXAM documented in this encounter Visit Diagnoses Diagnosis High Risk Medication documented in this encounter
--- OUTSIDE RECORDS SUMMARY | 2022-05-22 16:05 | XMS_ITS | Encounter Summary ---
:1965 Author Organization [facility] Address [address] [place] [address] Care Team Providers Name Role Phone Unavailable Primary Care Provider Unavailable Reason for Visit Reason Comments Follow-up Headache Outpatient (Routine) - Closed Specialty Diagnoses / Procedures Referred By Contact Refer red To Contact Ophthalmology Diagnoses Lupus Systemic Erythematosus (HCC) Hemorrhage Retinal Bilateral Sylvia Cisneros M.D. [facility] [address] [place] [address] Referral ID Status Reason Start Date Expiration Date Visits Requ ested Visits Authorized [id number] Closed 10/17/2019 10/16/2020 6 6 Encounter Details Date Type Department Care Team Description 11/17/2019 Comprehensive Visit Department of Sylvia Cisneros Retinal Bilateral (Primary Dx); Ophthalmology in Chloe Ramirez Retinopathy; [place], [place] [address] [facility] Lupus Systemic Erythematosus (HCC) [address] [place] [phone] Social History Tobacco Use Types Packs/Day Years [...] er 09/23/2021 How often do you attend anglican or moravian services? Never 09/23/2021 Do you belong to any clubs or organizations such as No 09/23/2021 anglican groups, unions, fraternal or athletic groups, or [...] documented as of this encounter Progress Notes Sylvia Cisneros M.D. - 11/17/2019 1:30 PM CDT #1 Retinal Hemorrhages with lupus retinopathy, both eyes First seen by [facility] on 11/17/19 as a referral from Dr. Cruz after she was noted to have peripheral retinal hemorrhages on a routine eye exam with her local stamping bench die maker #2 Systemic Lupus Erythematosus Diagnosed 8 years ago in May 2012 #3 History of Plaquenil use Stopped in 2016 due to cost; might restart in 2019 #4 Autoimmune hepatitis with cirrhosis #5 Headaches #6 Anemia #7 Coronary artery disease #8 Cataract, both eyes - not visually significant #9 Dry Eye Syndrome, both eyes TODAY - 11/17/[address] Bal in June 2019 she was having symptoms of increased lupus activity (aching joints, very fatigued.) In September 2019, Dr. Bal increased AZA to 200 mg daily and started a course of PO prednisone for increased lupus activity (elevated beta-2 glycoprotein, prothrombin, phospholipid abs, elevated ESR, decreased complement level). Prednisone 15mg x 2wks, 10mg x 2wks, then 5mg. She stopped prednisone on Thursday. Prednisone wasn't really helping her, so she stopped it. When prednisone decreased, she couldtell that her symptoms were worsening again. He also proposed restarting Plaquenil which was stopped in 2016 due to cost. Follow up is scheduled with Dr. Bal in early December 2019. Her local eye doctor noted retinal hemorrhages on a routine eye exam in September 2019, so she was referred to [facility] and evaluated by Dr. Cruz in October 2019. Her previous eye exam was probably in 2016. She is also followed by Dr. Rico in pulmonology because she has dyspnea with ground glass opacities that are also attributed to lupus. It is hard to see at night, for the last two weeks she has had severe headaches, across her temples that are new. They do not occur at any particular time of day. When she is at work, she has to wear ahat that makes the top of her head feel numb. She used to smoke and when she first quit, she had a severe headache. This time when she quit smoking, she did not have a headache. This headache is also different than a caffeine headache. Sometimes when she is sleeping, she wakes up with a headache. She has never had a brain MRI. Visual acuity is 20/20 in each eye. IOPs 10 & 9 Exam shows no anterior chamber or vitreous inflammation. [place] fluorescein angiography shows peripheral retinal vascular leakage in addition to the clinically seen retinal hemorrhages. ??No fluorescein angiography was done in October, but color photos today vs then show no major change in the retinal hemorrhages. Of note, in the last two weeks, she has been experiencing bitemporal headaches, and the fatigue and joint pain recurred as she has decreased prednisone. ??I am wondering if she should have a brain MRI/MRA to make sure there is no evidence of GEOTHERMAL SYSTEM INSTALLER lupus? Otherwise, the findings on fluorescein angiography are not visually threatening. Since her systemic immunosuppressive medication has been recently increased, we can observe the retinopathy without making any other changes in treatment for now. (it takes some time for the dose increase of azathioprine to take effect.) I will send her clerical transcriber Dr. Bal a note to ask if he feels this testing is warranted. Otherwise, if Dr. Bal decides to restart Plaquenil, there is no contraindication from the retina standpoint. Follow up with me in 3 months with repeat angiography. documented in this encounter Plan of Treatment Upcoming Encounters Date Type Specialty Care Team Description 07/08/2022 Appointment Laboratory Medicine Pedro Donnelly, SALESPERSON HOUSEHOLD APPLIANCES, C.N.P. [address] [place] [phone] (Claudia vera) 07/08/2022 Office Visit Gastroenterology and Collin Trivedi Hepatology Chloe [address] [place] [phone] (Claudia vera) documented as of this encounter Visit Diagnoses Diagnosis Hemorrhage Retinal Bilateral - Primary Retinopathy Lupus Systemic Erythematosus (HCC) documented in this encounter
--- OUTSIDE RECORDS SUMMARY | 2022-05-22 16:05 | XMS_ITS | Encounter Summary ---
:1965 Author Organization [facility] Address [address] [place] [address] Care Team Providers Name Role Phone Unavailable Primary Care Provider Unavailable Encounter Details Date Type Department Care Team Description 11/17/2019 Ancillary Procedure Department of Ophthalmology Social History [...] How often do you attend taoism or mormon services? Never 09/23/2021 Do you [...] Description 07/08/2022 Appointment Laboratory Medicine Pedro Donnelly, BATCH OR CONTINUOUS STILL OPERATOR, C.N.P. [address] [place] [address] (Wo rk) 07/08/2022 Office Visit Gastroenterology and Collin Trivedi Hepatology Chloe [address] [place] [address] (Wo rk) documented as of this encounter Procedures Procedure Name Priority Date/Time Associated Comments Diagnosis OPHTHALMOLOGY IMAGE Routine 11/17/2019 9:00 AM Re sults for this EXAM CDT procedure are i n the results section. documented in this encounter Results [employer] Photography-Ophthalmology Image Exam (11/17/2019 9:00 AM CDT) Specimen (Source) Anatomical Collection Method Collection Time Re ceived Time Location / / Volume Laterality 11/17/2019 8:57 AM CDT Narrative [facility] - 11/17/2019 9:05 AM CDT This order has been created [...]
--- OUTSIDE RECORDS SUMMARY | 2022-05-22 16:05 | XMS_ITS | Encounter Summary ---
:1965 Author Organization [facility] Address [address] [place] [address] Care Team Providers Name Role Phone Unavailable [...] How often do you attend rastafarian or lutheran services? Never 09/23/2021 Do you belong to [...] Description 07/08/2022 Appointment Laboratory Medicine Pedro Donnelly, BUSINESS PERFORMANCE MANAGER, C.N.P. [address] [place] [address] (Wo rk) 07/08/2022 Office Visit Gastroenterology and Collin Trivedi Hepatology Chloe [address] [place] [address] (Wo rk) documented as of this encounter Procedures Procedure Name Priority Date/Time Associated Comments Diagnosis OPHTHALMOLOGY IMAGE Routine 11/17/2019 9:51 AM Re sults for this EXAM CDT procedure are i n the results section. documented in this encounter Results Eyes Spectralis FA ICG-Ophthalmology Image Exam (11/17/2019 9:51 AM CDT) Specimen (Source) Anatomical Collection Method Collection Time Re ceived Time Location / / Volume Laterality 11/17/2019 12:00 PM CDT Narrative [facility] - 11/17/2019 9:51 AM CDT This order has been created [...]
--- OUTSIDE RECORDS SUMMARY | 2022-05-22 16:05 | XMS_ITS | Encounter Summary ---
:1965 Author Organization [facility] Address [address] [place] [address] Care Team Providers Name Role Phone Unavailable Primary Care Provider Unavailable Reason for Visit Reason Comments retina are bleeding Appointment Request (Routine) - Closed Specialty Diagnoses / Procedures Referred By Contact Refer red To Contact Ophthalmology Diagnoses . Landon Bal M.D. [facility] Procedures OPH General eye exam [address] [place] [address] Referral ID Status Reason Start Date Expiration Date Visits Requ ested Visits Authorized [id number] Closed 10/06/2019 10/05/2020 6 6 Encounter Details Date Type Department Care Team Description 10/17/2019 Comprehensive Visit Department of Shauna Cruz S ystemic Erythematosus (HCC) (Primary Dx); Ophthalmology in Eduarda Pope Hepatitis A utoimmune (HCC); [place], [place] Chloe Thrombocytopenia (HCC); [address] Hemorrhage Retinal Bilateral ; [facility] High Risk Medication; [phone] [place], Cirrhosis Nonalcoholic (HCC) [phone] [place] [id number] Social History Tobacco Use Types Packs/Day Years [...] How often do you attend latter-day or baptism services? Never 09/23/2021 Do you [...] documented as of this encounter Progress Notes Eduarda Cruz M.D. - 10/17/2019 9:00 AM CST This patient was referred by Landon Bal M.D. for evaluation of retinal hemorrhages in both eyes. OCT macula: 10/17/2019 Right eye: normal foveal contour, no fluid Left eye: normal foveal contour, no fluid Color photos: Consistent with exam both eyes #Retinal hemorrhages, both eyes # Systemic lupus erythematosus On Azathioprine Follows with [facility] (Dr. Bal) Recently her SLE has been less well-controlled and Rheumatology is considering restaring Plaquenil #Autoimmune hepatitis with cirhosis #Anemia #subclinical coronary artery disease On baby aspirin and a statin #Hx of Plaquenil use Took from 2011 to 2016; stopped due to cost No evidence of toxicity. #Hx of smoking Smoked for 30 years; quit 1 year ago #Age related cataract, both eyes #Dry eye syndrome Continue artificial tears PRN. IMPRESSION 10/17/2019 : 54 yo female with SLE which has been less well-controlled recently with persistent anemia, thrombocytopenia, elevated ESR and hypo-complement. She follows with Rheumatology and her immunosuppressive medications are being adjusted; she was on Plaquenil in the past and rheumatology is considering restarting it for better disease control. Visual acuity is 20/20 both eyes. intraocular pressure normal. She has a few peripheral intraretinal hemorrhages in both eyes (and one small macular heme right eye). This could be related to recent anemia and thrombocytopenia as well as possibly from peripheral vascular occlusions due to lupus. No evidence of active neovascularization. No intervention required at this point; recommend working on improving control of her systemic disease. PLAN 10/17/2019: Discussed with Dr Sylvia Cisneros - will order optos fluorescein angiography both eyes and see Dr Cisneros in 6 wks. Follow up with Rheumatology If Plaquenil is restarted, recommend routine screening in the eye clinic Addendum 10/17/2019 ([facility]) Discussed with the patient the plan to obtain and FA and see Dr. Cisneros in 6 weeks - she is in agreement with the plan; all questions were answered. [employer] documented in this encounter Plan of Treatment Upcoming Encounters Date Type Specialty Care Team Description 07/08/2022 Appointment Laboratory Medicine Pedro Donnelly, TERRITORY MANAGER, C.N.P. [address] [place] [address] (Claudia vera) 07/08/2022 Office Visit Gastroenterology and Collin Trivedi Hepatology Chloe [address] [place] [address] (Claudia vera) documented as of this encounter Visit Diagnoses Diagnosis Lupus Systemic Erythematosus (HCC) - [facility] Hepatitis Autoimmune (HCC) Thrombocytopenia (HCC) Hemorrhage Retinal Bilateral High Risk Medication Cirrhosis Nonalcoholic (HCC) documented in this encounter
--- OUTSIDE RECORDS SUMMARY | 2022-05-22 16:05 | XMS_ITS | Encounter Summary ---
:1965 Author Organization [facility] Address [address] [place] [address] Care Team Providers Name Role Phone Unavailable [...] er 09/23/2021 How often do you attend protestant or sabianism services? Never 09/23/2021 Do you belong to any clubs or organizations such as No 09/23/2021 protestant groups, unions, fraternal or athletic groups, or [...] Description 07/08/2022 Appointment Laboratory Medicine Pedro Donnelly, ORTHOTIC FINISH GRINDING TECHNICIAN, C.N.P. [address] [place] [address] (Wo rk) 07/08/2022 Office Visit Gastroenterology and Collin Trivedi Hepatology Chloe [address] [place] [address] (Wo rk) documented as of this encounter Procedures Procedure Name Priority Date/Time Associated Comments Diagnosis OPHTHALMOLOGY IMAGE Routine 11/17/2019 9:19 AM Re sults for this EXAM CDT procedure are i n the results section. documented in this encounter Results Eyes Spectralis OCT-Ophthalmology Image Exam (11/17/2019 9:19 AM CDT) Specimen (Source) Anatomical Collection Method Collection Time Re ceived Time Location / / Volume Laterality 11/17/2019 12:00 PM CDT Narrative IIMS - 11/17/2019 9:19 AM CDT This order has been created [...]
--- OUTSIDE RECORDS SUMMARY | 2022-05-22 16:05 | XMS_ITS | Encounter Summary ---
:1965 Author Organization [facility] Address [address] [place] [address] Care Team Providers Name Role Phone Unavailable Primary Care Provider Unavailable Encounter Details Date Type Department Care Team Description 10/14/2019 Silent Schedule Department of Ophthalmology Fe Cruz in [facility] ki [place] [address] [facility] [address] [place] [address] [place], [place] [phone] (Wo rk) Social History Tobacco Use Types [...] How often do you attend catholic or voodoo services? Never 09/23/2021 Do you [...] Description 07/08/2022 Appointment Laboratory Medicine Pedro Donnelly, SENIOR PYTHON DEVELOPER, C.N.P. [address] [place] [phone] (Wo rk) 07/08/2022 Office Visit Gastroenterology and Collin Trivedi Hepatology Chloe [address] [place] [phone] (Wo rk) documented as of this encounter Procedures Procedure Name Priority Date/Time Associated Diagnosis Comme nts FUNDUS PHOTOS - OU Routine 10/14/2019 10:52 AM Hemorrhage Reti nal Results for this - BOTH EYES LADLE PULLER Bilateral procedure are i n the results section. documented in this encounter Results Fundus Photos - OU - Both Eyes (10/14/2019 10:52 AM LADLE PULLER) Specimen (Source) Anatomical Location Collection Method / Collectio n Time Received Time / Laterality Volume Narrative OPHTHALMOLOGY IMAGING EXAM - 10/17/19 20 9:10 AM LADLE PULLER Right Eye Field of view is ultra-wide view. Fundus photo type obtained is Autofluorescence, Color. Left Eye Field of view is ultra-wide view. Fundus photo type obtained is Autofluorescence, Color. Notes Color photos: Consistent with exam both eyes ?? Eduarda Cruz M.D. OPHTH PHOTOGRAPHY Performing Organization Address City/State/ZIP Code Phon e Number OPHTHALMOLOGY IMAGING EXAM documented in this encounter Visit Diagnoses Not on filedocumented in this encounter
--- OUTSIDE RECORDS SUMMARY | 2022-05-22 16:05 | XMS_ITS | Encounter Summary ---
:1965 Author Organization [facility] Address [address] [place] [address] Care Team Providers Name Role Phone Unavailable Primary Care Provider Unavailable Reason for Visit Outpatient (Routine) - Closed Specialty Diagnoses / Procedures Referred By Contact Refer red To Contact Ophthalmology Diagnoses Lupus Systemic Erythematosus (HCC) Hemorrhage Retinal Bilateral Sylvia Cisneros M.D. [facility] [address] [place] [phone] Referral ID Status Reason Start Date Expiration Date Visits Requ ested Visits Authorized [id number] Closed 10/17/2019 10/16/2020 6 6 Encounter Details Date Type Department Care Team Description 11/17/2019 Ancillary Department of Sylvia Cisneros Lupus Systemic Erythematosus (HCC); Procedure Ophthalmology in Chloe Ramirez Hemorrhage Retinal Bilateral [place], [place] [address] [facility] [address] [place] [phone] Social History Tobacco Use Types Packs/Day Years [...] er 09/23/2021 How often do you attend shinto or worship services? Never 09/23/2021 Do you belong to any clubs or organizations such as No 09/23/2021 shinto groups, unions, fraternal or athletic groups, or [...] Description 07/08/2022 Appointment Laboratory Medicine Pedro Donnelly, FINANCIAL AIDS OFFICER, C.N.P. [address] [place] [phone] (Claudia rk) 07/08/2022 Office Visit Gastroenterology and Collin Trivedi Hepatology MAyala [address] [place] [phone] (Cluadia rk) documented as of this encounter Procedures Procedure Name Priority Date/Time Associated Diagnosis Comme nts FUNDUS PHOTOS - OU Routine 11/17/2019 9:51 AM Lupus Systemic R esults for this - BOTH EYES CDT Erythematosus (H CC) procedure are in Hemorrhage Retinal the resul ts Bilateral section. documented in this encounter Results Fundus Photos - OU - Both Eyes (11/17/2019 9:51 AM CDT) Specimen (Source) Anatomical Location Collection Method / Collectio n Time Received Time / Laterality Volume Narrative OPHTHALMOLOGY IMAGING EXAM - 01/04/20 20 10:47 AM CDT Right Eye Field of view is ultra-wide view. Fundus photo type obtained is Autofluorescence, Color. Left Eye Field of view is ultra-wide view. Fundus photo type obtained is Color, Autofluorescence. Notes Optos color photos: confirm exam finding s; vs 10/2019, the intraretinal hemorrhages in the right are stable, jus t a small new cluster in temporal periphery. In the left eye, there are fe wer hemorrhages compared to the right, and they are smaller vs 10/2019 Optos FAF: hypoAF lesions due to blockin g from intraretinal hemorrhages in both eyes. Sylvia Cisneros M.D. OPHTH PHOTOGRAPHY Performing Organization Address City/State/ZIP Code Phon e Number OPHTHALMOLOGY IMAGING EXAM documented in this encounter Visit Diagnoses Diagnosis Lupus Systemic Erythematosus (HCC) Hemorrhage Retinal Bilateral documented in this encounter
--- OUTSIDE RECORDS SUMMARY | 2022-05-22 16:05 | XMS_ITS | Encounter Summary ---
:1965 Author Organization [facility] Address [address] [place] [address] Care Team Providers Name Role Phone Unavailable Primary Care Provider Unavailable Encounter Details Date Type Department Care Team Description 10/14/2019 Ancillary Procedure Department of Ophthalmology Social History [...] How often do you attend caodaism or faith services? Never 09/23/2021 Do you [...] Description 07/08/2022 Appointment Laboratory Medicine Pedro Donnelly, DIESEL TRACTOR OPERATOR, C.N.P. [address] [place] [address] (Wo rk) 07/08/2022 Office Visit Gastroenterology and Collin Trivedi Hepatology Chloe [address] [place] [address] (Wo rk) documented as of this encounter Procedures Procedure Name Priority Date/Time Associated Comments Diagnosis OPHTHALMOLOGY IMAGE Routine 10/14/2019 12:00 Resu lts for this EXAM PM DIRECTOR OF PRODUCT MANAGEMENT procedure are i n the results section. documented in this encounter Results Eyes Spectralis OCT-Ophthalmology Image Exam (10/14/2019 12:00 PM DIRECTOR OF PRODUCT MANAGEMENT) Specimen (Source) Anatomical Collection Method Collection Time Re ceived Time Location / / Volume Laterality 10/14/2019 12:00 PM DIRECTOR OF PRODUCT MANAGEMENT Narrative IIMS - 10/14/2019 1:12 PM DIRECTOR OF PRODUCT MANAGEMENT This order has been created and auto-finalized [...]
--- OUTSIDE RECORDS SUMMARY | 2022-05-22 16:05 | XMS_ITS | Encounter Summary ---
:1965 Author Organization [facility] Address [address] [place] [address] Care Team Providers Name Role Phone Unavailable Primary Care Provider Unavailable Encounter Details Date Type Department Care Team Description 11/10/2019 Orders Only Division of James Joseph Cirrho sis Of Gastroenterology in BChloe Liver (HCC) (Primary [place], [place] [address] [facility] [address] [place] [phone] Social History Tobacco Use Types Packs/Day Years [...] How often do you attend adventism or adventism services? Never 09/23/2021 Do you [...] Description 07/08/2022 Appointment Laboratory Medicine Pedro Donnelly, ORDNANCE TRUCK INSTALLATION SUPERVISOR, C.N.P. [address] [place] [address] (Wo rk) 07/08/2022 Office Visit Gastroenterology and Collin Trivedi, Hepatology M.DSarina [address] [place] [address] (Wo rk) documented as of this encounter Visit Diagnoses Diagnosis Other Cirrhosis Of Liver (HCC) - Primary documented in this encounter
--- OUTSIDE RECORDS SUMMARY | 2022-05-22 16:05 | XMS_ITS | Encounter Summary ---
:1965 Author Organization [facility] Address [address] [place] [address] Care Team Providers Name Role Phone Unavailable [...] How often do you attend taoism or gnosticist services? Never 09/23/2021 Do you [...] Description 07/08/2022 Appointment Laboratory Medicine Pedro Donnelly, SALES SERVICE PROMOTER, C.N.P. [address] [place] [address] (Wo rk) 07/08/2022 Office Visit Gastroenterology and Collin Trivedi Hepatology Chloe [address] [place] [address] (Wo rk) documented as of this encounter Procedures Procedure Name Priority Date/Time Associated Comments Diagnosis OPHTHALMOLOGY IMAGE Routine 10/14/2019 10:50 Resu lts for this EXAM AM CLINICAL PHARMACY COORDINATOR procedure are i n the results section. documented in this encounter Results Generic Eye Procedure 200 R-Ophthalmology Image Exam (10/14/2019 10:50 AM CLINICAL PHARMACY COORDINATOR) Specimen (Source) Anatomical Collection Method Collection Time Re ceived Time Location / / Volume Laterality 10/14/2019 10:49 AM CLINICAL PHARMACY COORDINATOR Narrative IIMS - 10/14/2019 10:57 AM CLINICAL PHARMACY COORDINATOR This order has been created and auto-finalized [...]
--- OUTSIDE RECORDS SUMMARY | 2022-05-22 16:05 | XMS_ITS | Encounter Summary ---
:1965 Author Organization [facility] Address [address] [place] [address] Care Team Providers Name Role Phone Unavailable Primary Care Provider Unavailable Encounter Details Date Type Department Care Team Description 10/14/2019 Orders Only Department of Ophthalmology Magdalena Swartz R.N. in [facility] videotape operator [address] [facility] [address] [place] [phone] Social History Tobacco Use Types Packs/Day Years [...] er 09/23/2021 How often do you attend druze or islam services? Never 09/23/2021 Do you belong to any clubs or organizations such as No 09/23/2021 druze groups, unions, fraternal or athletic groups, or [...] Description 07/08/2022 Appointment Laboratory Medicine Pedro Donnelly, FACILITIES MANAGER, C.N.P. [address] [place] [phone] (Wo rk) 07/08/2022 Office Visit Gastroenterology and Collin Trivedi, Hepatology MAyala [address] [place] [phone] (Wo rk) documented as of this encounter Visit Diagnoses Not on filedocumented in this encounter
--- OUTSIDE RECORDS SUMMARY | 2022-05-22 16:05 | XMS_ITS | Encounter Summary ---
:1965 Author Organization [facility] Address [address] [place] [address] Care Team Providers Name Role Phone Unavailable Primary Care Provider Unavailable Reason for Referral Outpatient (Routine) - Closed Specialty Diagnoses / Procedures Referred By Contact Refer red To Contact Ophthalmology Diagnoses Lupus Systemic Erythematosus (HCC) Hemorrhage Retinal Bilateral Sylvia Cisneros M.D. [facility] [address] [place] [address] Referral ID Status Reason Start Date Expiration Date Visits Requ ested Visits Authorized [id number] Closed 10/17/2019 10/16/[address] Cruz spoke with Dr. Cisneros. [facility] [place] this referral for 11/16 ot 11/21 in the New T3 slot ASST Encounter Details Date Type Department Care Team Description 10/17/2019 Orders Only Department of [facility], Lupus Systemic Erythematosus (HCC) (Primary Dx); Ophthalmology in Sarah R, C.O.A. Hemorrhage Retinal Bilateral [place], [place] [address] [facility] [address] [place] [phone] [phone] Social History Tobacco Use Types Packs/Day Years [...] How often do you attend evangelical or buddhist services? Never 09/23/2021 Do you belong to [...] Description 07/08/2022 Appointment Laboratory Medicine Pedro Donnelly, PARI MUTUAL TICKET CHECKER, C.N.P. [address] [place] [phone] (Claudia vera) 07/08/2022 Office Visit Gastroenterology and Collin Trivedi Hepatology MSarinaDSarina [address] [place] [phone] (Claudia vera) Scheduled Referrals Name Type Priority Associated Diagnoses Order S chedule Ophthalmology - Outpatient Routine Lupus Systemic Expected: Uveitis consult Referral Erythematosus (H CC) 11/17/2019 (clinic) Hemorrhage Retinal (Approxim ate), Bilateral Expires: 10/17/2022 documented as of this encounter Results Fluorescein Angiography - OU - Both Eyes (11/17/2019 9:51 AM CDT) Specimen (Source) Anatomical Location Collection Method / Collectio n Time Received Time / Laterality Volume Narrative OPHTHALMOLOGY IMAGING EXAM - 01/04/20 11:05 AM CDT Right Eye Dye used is fluorescein, ICG. Fluorescei n dose given is normal. Left Eye Dye used is fluorescein, ICG. Fluorescei n dose given is normal. Notes [place] ICG and fluorescein angiograp hy. Transit right (still finishing la minar venous flow when switched to left eye.) Both eyes have a few scattered hypofluor escent spots due to blocking from hemorrhages in the periphery as well as along the inferior arcade in the right eye due to a nerve fiber layer hem orrhage and in the temporal macula of the left eye. There are patches of pe ripheral vascular leakage in both eyes, primarily in the inferotemporal pe riphery. There are no occlusions, nonperfusion, or neovascularization. Bot h also have primarily peripheral shadowing from mild vitreous debris/cond ensations. There is no late disc or macular leakage. ??ICG shows no hypof luorescent lesions, just scattered tiny peripheral hyperfluorescent spots p veronica larger and less distinct patches of hyperfluorescence in the macu la of each eye (temporal macula in the right, inferior arcade in the left.) Sylvia Cisneros M.D. OPHTH PHOTOGRAPHY Performing Organization Address City/[facility]/ZIP Code Phon e Number OPHTHALMOLOGY IMAGING EXAM ICG Angiography - OU - Both Eyes (11/17/2019 9:51 AM CDT) Specimen (Source) Anatomical Location Collection Method / Collectio n Time Received Time / Laterality Volume Narrative OPHTHALMOLOGY IMAGING EXAM - 11/22/19 20 5:54 PM CDT Right Eye Dye used is ICG. Left Eye Dye used is ICG. Notes See fluorescein angiography for interpre tation Sylvia Cisneros M.D. OPHTH PHOTOGRAPHY Performing Organization Address City/State/ZIP Code Phon e Number OPHTHALMOLOGY IMAGING EXAM Optical Coherence Tomography (OCT) - Macula/Retina - OU - Both Eyes (11/17/2019 9:51 AM CDT) Analysis Performed At Patho logist Time Signature CMT L Microns 258 um OPHTHALMOLOGY IMAGING EXAM CMT R Microns 258 um OPHTHALMOLOGY IMAGING EXAM Specimen (Source) Anatomical Location Collection Method / Collectio n Time Received Time / Laterality Volume Narrative OPHTHALMOLOGY IMAGING EXAM - 01/04/20 20 10:55 AM CDT Right Eye OCT device used was Spectralis . Progres alpa has been stable. Scan locations included macula. Central macul ar thickness 258 um. Left Eye OCT device used was Spectralis . Scan lo cations included macula. Central macular thickness 258 um. Notes RIGHT - overall normal macular thickness , stable vs 10/2019. intact foveal depression and retinal layers, no intra or subretinal fluid. Attached posterior hyaloid. Peripapillary choroid is thin, but the thickness is likely normal in the rest of the macula. LEFT - normal macula thickness except ma ybe in the temporal macula where there is a trend towards thinning; stabl e vs 10/2019. ??intact foveal depression and retinal layers, no intra or subretinal fluid. Attached posterior hyaloid. Peripapillary choroid is thin, but the thickness is likely normal in the rest of the macula. Sylvia Cisneros M.D. OPHTH TOMOGRAPHY Performing Organization Address City/State/ZIP Code [...] Lupus Systemic Erythematosus (HCC) - Afia vinh Hemorrhage Retinal Bilateral Lupus Systemic Erythematosus (HCC) Hemorrhage Retinal Bilateral Hemorrhage Retinal Bilateral - Primary Lupus Systemic Erythematosus (HCC) Lupus Systemic Erythematosus (HCC) Hemorrhage Retinal Bilateral Lupus Systemic Erythematosus (HCC) Hemorrhage Retinal Bilateral documented in this encounter
--- OUTSIDE RECORDS SUMMARY | 2022-05-22 16:05 | XMS_ITS | Encounter Summary ---
:1965 Author Organization [facility] Address [address] [place] [address] Care Team Providers Name Role Phone Unavailable Primary Care Provider Unavailable Encounter Details Date Type Department Care Team Description 11/10/2019 Clinical Communication Division of James Joseph Gastroenterology cr Burgos M.D. [place], [place] [address] [facility] [address] [place] [phone] Social History Tobacco Use Types Packs/Day Years [...] How often do you attend islam or mormonism services? Never 09/23/2021 Do you [...] this encounter Miscellaneous Notes Telephone Encounter - James Joseph M.D. - 11/10/2019 11:25 AM CLOUD SYSTEMS ARCHITECT Dilan Vasquez, Happy to see her on 12/07 at 1:15 or 4:20 PM. I ordered labs and an ultrasound. Thank you, Yony D SYSTEMS ARCHITECT documented in this encounter Plan of Treatment Upcoming Encounters Date Type Specialty Care Team Description 07/08/2022 Appointment Laboratory Medicine Pedro Donnelly, MAC DEVELOPER, C.N.P. [address] [place] [phone] (Claudia vera) 07/08/2022 Office Visit Gastroenterology and Collin Trivedi Hepatology Chloe [address] [place] [phone] (Claudia vera) documented as of this encounter Visit Diagnoses Not on filedocumented in this encounter
--- OUTSIDE RECORDS SUMMARY | 2022-05-22 16:05 | XMS_ITS | Encounter Summary ---
:1965 Author Organization [facility] Address [address] [place] [address] Care Team Providers Name Role Phone Unavailable Primary Care Provider Unavailable Reason for Visit Outpatient (Routine) - Closed Specialty Diagnoses / Procedures Referred By Contact Refer red To Contact Ophthalmology Diagnoses Lupus Systemic Erythematosus (HCC) Hemorrhage Retinal Bilateral Sylvia Cisneros M.D. [facility] [address] [place] [phone] Referral ID Status Reason Start Date Expiration Date Visits Requ ested Visits Authorized [id number] Closed 10/17/2019 10/16/2020 6 6 Encounter Details Date Type Department Care Team Description 11/17/2019 Ancillary Department of Sylvia Cisneros Lupus Systemic Erythematosus (HCC); Procedure Ophthalmology in Chloe Ramirez Hemorrhage Retinal Bilateral [place], [place] [address] [facility] [address] [place] [phone] Social History Tobacco Use Types Packs/Day Years [...] How often do you attend druze or mosque services? Never 09/23/2021 Do you [...] Description 07/08/2022 Appointment Laboratory Medicine Pedro Donnelly, BEAM MACHINE OPERATOR, C.N.P. [address] [place] [phone] (Claudia rk) 07/08/2022 Office Visit Gastroenterology and Collin Trivedi, Hepatology MAyala [address] [place] [phone] (Claudia rk) documented as of this encounter Procedures Procedure Name Priority Date/Time Associated Diagnosis Comme nts ANGIOGRAPHY - OU - Routine 11/17/2019 9:51 AM Lupus Systemic R esults for this BOTH EYES CDT Erythematosus (H CC) procedure are in Hemorrhage Retinal the resul ts Bilateral section. ICG ANGIOGRAPHY - OU Routine 11/17/2019 9:51 AM Lupus Systemic Results for this - BOTH EYES CDT Erythematosus (H CC) procedure are in Hemorrhage Retinal the resul ts Bilateral section. documented in this encounter Results ICG Angiography - OU - Both Eyes [...]
--- OUTSIDE RECORDS SUMMARY | 2022-05-22 16:05 | XMS_ITS | Encounter Summary ---
:1965 Author Organization [facility] Address [address] [place] [address] Care Team Providers Name Role Phone Unavailable Primary Care Provider Unavailable Encounter Details Date Type Department Care Team Description 12/01/2019 Clinical Communication Division of James Joseph Gastroenterology cr Burgos M.D. [place], [place] [address] [facility] [address] [place] [phone] Social History Tobacco Use Types Packs/Day Years [...] er 09/23/2021 How often do you attend mandaen or druze services? Never 09/23/2021 Do you belong to any clubs or organizations such as No 09/23/2021 mandaen groups, unions, fraternal or athletic groups, or [...] Telephone Encounter - James Joseph M.D. - 12/01/2019 12:04 PM CDT Dalia Clemens. These are non-urgent and can be delayed at least 2 months. documented in this encounter Plan of Treatment Upcoming Encounters Date Type Specialty Care Team Description 07/08/2022 Appointment Laboratory Medicine Pedro Donnelly, MANAGER DESKTOP, C.N.P. [address] [place] [phone] (Claudia vera) 07/08/2022 Office Visit Gastroenterology and Collin Trivedi Hepatology Chloe [address] [place] [phone] (Claudia vera) documented as of this encounter Visit Diagnoses Not on filedocumented in this encounter
--- OUTSIDE RECORDS SUMMARY | 2022-05-22 16:05 | XMS_ITS | Encounter Summary ---
:1965 Author Organization [facility] Address [address] [place] [address] Care Team Providers Name Role Phone Unavailable Primary Care Provider Unavailable Reason for Visit Reason Onset Date Comments Pre-visit Testing Orders 10/07/2019 Encounter Details Date Type Department Care Team Description 10/07/2019 Clinical Department of Eduarda Cruz Pre-visit Yadira moser Communication Ophthalmology in Chloe Pope Orders [place], [place] [address] [facility] [address] [place] [phone] Social History Tobacco Use Types Packs/Day Years [...] How often do you attend christianity or latter-day services? Never 09/23/2021 Do you [...] this encounter Miscellaneous Notes Telephone Encounter - Anastasia Allen - 10/07/2019 4:50 PM CST Em - Can you take care of this scheduling? Anastasia Clemens ENTARY SCHOOL TEACHER Telephone Encounter - Amelia Blanco, C.O.A. - 10/07/2019 3:35 PM CST Orders have been placed, please schedule within [address] Finney. Non Urgent ENTARY SCHOOL TEACHER Telephone Encounter - Anastasia Allen - 10/07/2019 12:10 PM CST The following tests need order proxies for Dr. Cruz Indication for the order plaquenil screen The following eye(s) are affected Both eyes Order Que that needs to be selected OPH MA E4 PAC Humphreyl visual field, OCT macula Spectralis-retina, Fundus photos, Autofluorescence No email communication from the physician regarding testing. Triage Comments: Eduarda Cruz M.D. 10/07/2019 9:11 AM ELEMENTARY SCHOOL TEACHER Can see any medical retina or Dr Finney, non-urgent within 1 month Optos color photos, heidelberg OCTmacula and Wilder visual field 10-2 and autofluorescence, for plaquenil screen. Janette Mercer 10/06/2019 3:32 PM ELEMENTARY SCHOOL TEACHER Patient is being referred for retinonpathy and also a reitna hemorrhage bilateral. We are confused because Dr. Bal put in a request for retinpathy and then we also got this request from Dr. Phipps about hem orrage bilateral. If you could plesae review records and advise. Please go to fax forwarding, (you can open your network window and paste the following to get there; [email or web address]) ENTARY SCHOOL TEACHER documented in this encounter Plan of Treatment Upcoming Encounters Date Type Specialty Care Team Description 07/08/2022 Appointment Laboratory Medicine Pedro Donnelly, PROTOTYPE MACHINE OPERATOR, C.N.P. [address] [place] [phone] (Claudia vera) 07/08/2022 Office Visit Gastroenterology and Collin Trivedi, Hepatology M.DSarina [address] [place] [phone] (Claudia vera) documented as of this encounter Visit Diagnoses Not on filedocumented in this encounter
--- OUTSIDE RECORDS SUMMARY | 2022-05-22 16:05 | XMS_ITS | Encounter Summary ---
:1965 Author Organization [facility] Address [address] [place] [address] Care Team Providers Name Role Phone Unavailable Primary Care Provider Unavailable Encounter Details Date Type Department Care Team Description 12/08/2019 Hospital Encounter Department of Moder, Landon Otero rrhosis Of Liver (HCC); Laboratory Medicine Chloe Mosher Lupus Sy stemic Erythematosus (HCC) and Pathology, [facility], in [place], [place] [address] [place] [address] Social History Tobacco Use Types Packs/Day Years [...] er 09/23/2021 How often do you attend lutheran or latter-day services? Never 09/23/2021 Do you belong to any clubs or organizations such as No 09/23/2021 lutheran groups, unions, fraternal or athletic groups, or [...] Description 07/08/2022 Appointment Laboratory Medicine Pedro Donnelly, VERTICAL BORER, C.N.P. [address] [place] [phone] (Wo rk) 07/08/2022 Office Visit Gastroenterology and Collin Trivedi, Hepatology Chloe [address] [place] [phone] (Wo rk) documented as of this encounter Procedures Procedure Name Priority Date/Time Associated Diagnosis Comme nts DNA DOUBLE-STRANDED Routine 12/08/2019 7:19 Lupus Systemic Res ults for this (DSDNA) ABS, IGG, S AM CDT Erythematosus (HCC) p rocedure are in the results section. SEDIMENTATION RATE, B Routine 12/08/2019 7:19 Lupus Systemic R esults for this AM CDT Erythematosus (HCC) procedur e are in the results section. PROTHROMBIN TIME Routine 12/08/2019 7:19 Other Cirrhosis Of Re sults for this (PT), P AM CDT Liver (HCC) procedure are i n the results section. CBC WITH Routine 12/08/2019 7:19 Other Cirrhosis Of Result s for this DIFFERENTIAL, B AM CDT Liver (HCC) procedure ar e in the results section. COMPL C3, S Routine 12/08/2019 7:19 Lupus Systemic Results fo r this AM CDT Erythematosus (HCC) procedur e are in the results section. COMPLEMENT C4, S Routine 12/08/2019 7:19 Lupus Systemic Result s for this AM CDT Erythematosus (HCC) procedur e are in the results section. C-REACTIVE PROTEIN Routine 12/08/2019 7:19 Lupus Systemic Resu lts for this (CRP), S/P AM CDT Erythematosus (HCC) procedur e are in the results section. COMPREHENSIVE Routine 12/08/2019 7:19 Other Cirrhosis Of Resul ts for this METABOLIC PANEL, S/P AM CDT Liver (HCC) procedu re are in the results section. documented in this encounter Results (ABNORMAL) Complement C4 (12/08/2019 7:19 AM CDT) athologist Signature Complement C4, <3 (L) 14 - 40 12/08/2019 SDSC S mg/dL 12:07 PM CDT Specimen Anatomical Collection Method Collection Time Receive d Time (Source) Location / / Volume Laterality Blood (Blood, 12/08/2019 7:19 AM 12/08/19 9:59 Venous) CDT AM CDT Landon Bal M.D. LAB BLOOD ADD-ON Performing Organization Address City/[facility]/ZIP Code Phon e Number ED [facility] [address] [place] [phone] 05 [facility] [place] [address] Laboratory Medicine and Pathology [address] [place] [address] Dr. CACERES Complement C3 (12/08/2019 7:19 AM CDT) athologist Signature Complement C3, S 80 75 - 175 12/08/2019 [facility] mg/dL 10:59 AM CDT Specimen Anatomical Collection Method Collection Time Receive d Time (Source) Location / / Volume Laterality Blood (Blood, 12/08/2019 7:19 AM 12/08/19 9:59 Venous) CDT AM CDT Landon Bal M.D. LAB BLOOD ADD-ON Performing Organization Address City/[facility]/ZIP Code Phon e Number [address] [place] [phone] 05 [address] [facility] [place] [address] Laboratory Medicine and Pathology [address] [place] [address] Dr. CACERES DNA Double-Stranded (dsDNA) Antibodies, IgG (12/08/2019 7:19 AM CDT) athologist Signature DNA 13.5 <30.0 12/08/2019 [facility] Double-Stranded (Negative) 1:41 PM CDT Ab, IgG, S IU/mL Specimen Anatomical Collection Method Collection Time Receive d Time (Source) Location / / Volume Laterality Blood (Blood, 12/08/2019 7:19 AM 12/08/19 Venous) CDT 10:00 AM CDT Landon Bal M.D. LAB BLOOD ADD-ON Performing Organization Address City/[facility]/ZIP Code Phon e Number [address] [place] [address] 05 SUPPORT [facility] [place] [address] Laboratory Medicine and Pathology [address] [place] [address] Dr. CACERES CRP (C-Reactive Protein) (12/08/2019 7:19 AM CDT) athologist Signature C-Reactive <3.0 <=8.0 mg/L 12/08/2019 DTL Protein (CRP), 8:52 AM CDT S Specimen Anatomical Collection Method Collection Time Receive d Time (Source) Location / / Volume Laterality Blood (Blood, 12/08/2019 7:19 AM 12/08/19 20 7:58 Venous) CDT AM CDT Landon Bal M.D. LAB BLOOD ADD-ON Performing Organization Address [facility] Phon e Number [facility] - [address] [place] [phone] 05 [facility] DTL [place] [phone] [address] (ABNORMAL) Sedimentation Rate (12/08/2019 7:19 AM CDT) [facility] [employer] Method Time Signature Sedimentation 122 (H) 2 - 22 12/08/2019 DTL Rate, B mm/h 9:30 AM CDT Specimen Anatomical Collection Method Collection Time Receive d Time (Source) Location / / Volume Laterality Blood (Blood, 12/08/2019 7:19 AM 12/08/19 20 7:45 Venous) CDT AM CDT Landon Bal M.D. LAB BLOOD ADD-ON Performing Organization Address City/[facility] Phon e Number [facility] - 200 [place], [place] [address] [facility] [place], [place] [phone] [place] [address] (ABNORMAL) CBC with Differential, Blood (12/08/2019 7:19 AM CDT) [facility] [employer] Method Time Signature Hemoglobin 10.4 (L) 11.6 - 12/08/2019 DTL 15.0 g/dL 7:52 AM CDT Hematocrit 30.3 (L) 35.5 - 12/08/2019 DTL 44.9 % 7:52 AM CDT Erythrocytes 3.22 (L) 3.92 - 12/08/2019 DTL 5.13 7:52 AM CDT x10(12)/L MCV 94.1 78.2 - 12/08/2019 DTL 97.9 fL 7:52 AM CDT RBC Distrib Width 15.8 12.2 - 12/08/2019 DTL 16.1 % 7:52 AM CDT Platelet Count 124 (L) 157 - 371 12/08/2019 DTL x10(9)/L 7:52 AM CDT Leukocytes 3.7 3.4 - 9.6 12/08/2019 DTL x10(9)/L 7:52 AM CDT Neutrophils 2.86 1.56 - 12/08/2019 DTL 6.45 7:52 AM CDT x10(9)/L Lymphocytes 0.52 (L) 0.95 - 12/08/2019 DTL 3.07 7:52 AM CDT x10(9)/L Monocytes 0.26 0.26 - 12/08/2019 DTL 0.81 7:52 AM CDT x10(9)/L Eosinophils <0.03 0.03 - 12/08/2019 DTL 0.48 7:52 AM CDT x10(9)/L Basophils <0.03 0.01 - 12/08/2019 DTL 0.08 7:52 AM CDT x10(9)/L Specimen Anatomical Collection Method Collection Time Receive d Time (Source) Location / / Volume Laterality Blood (Blood, 12/08/2019 7:19 AM 12/08/19 20 7:45 Venous) CDT AM CDT James Joseph M.D. LAB BLOOD ADD-ON Performing Organization Address City/State/[facility] Code Phon e Number [facility] - [address] [place] [address] [facility] [place] [address] Laboratories-[address] Prothrombin Time (PT) (12/08/2019 7:19 AM CDT) P athologist Signature Prothrombin 11.4 9.4 - 12.5 12/08/2019 DTL Time, P sec 8:06 AM CDT INR 1.0 0.9 - 1.1 12/08/2019 DTL 8:06 AM CDT Comment: ----ADDITIONAL INFORMATION---- Standard intensity warfarin therapeutic range: 2.0 to 3.0 ?? High intensity warfarin therapeutic rang e: 2.5 to 3.5 Specimen Anatomical Collection Method Collection Time Receive d Time (Source) Location / / Volume Laterality Blood (Blood, 12/08/2019 7:19 AM 12/08/19 20 7:45 Venous) CDT AM CDT James Joseph M.D. LAB BLOOD ADD-ON Performing Organization Address City/State/ZIP Code Phon e Number [facility] - 200 [place], [place] [address] [facility] [place] [address] Laboratories-[facility] 200 [facility] (ABNORMAL) Comprehensive Metabolic Panel (12/08/2019 7:19 AM CDT) Analysis Performed At Patho logist Time Signature Potassium, S 4.5 3.6 - 5.2 12/08/2019 DTL mmol/L 8:52 AM CDT Sodium, S 142 135 - 145 12/08/2019 DTL mmol/L 8:52 AM CDT Chloride, S 106 98 - 107 12/08/2019 DTL mmol/L 8:52 AM CDT Bicarbonate, S 25 22 - 29 12/08/2019 DTL mmol/L 8:52 AM CDT Anion Gap 11 7 - 15 12/08/2019 DTL 8:52 AM CDT BUN (Blood Urea 20 6 - 21 12/08/2019 DTL Nitrogen), S mg/dL 8:52 AM CDT Creatinine 1.08 (H) 0.59 - 12/08/2019 DTL 1.04 mg/dL 8:52 AM CDT eGFR-Non 58 (L) >=60 12/08/2019 DTL Black/ mL/min/BSA 8:52 AM CDT Citizen [place] Comment: ----ADDITIONAL INFORMATION---- Estimated GFR calculated using the 2009 CKD_EPI creatinine equation. eGFR-Black/ 67 >=60 mL/min/BSA 2019 8:52 AM CDT DTL Comment: ----ADDITIONAL INFORMATION---- Estimated GFR calculated using the 2009 CKD_EPI creatinine equation. Calcium, Total, S 9.4 8.6 - 10.0 mg/dL 12/08/2019 8:52 AM CDT DTL Glucose, S 104 70 - 140 mg/dL 12/08/2019 8:52 AM CDT D TL Protein, Total, S 7.4 6.3 - 7.9 g/dL 12/08/2019 8:52 A M CDT DTL Albumin, S 4.4 3.5 - 5.0 g/dL 12/08/2019 8:52 AM CDT D TL Aspartate Aminotransferase (AST), 22 8 - 43 U/L 12/07 8:52 AM CDT DTL S Alkaline Phosphatase, S 66 35 - 104 U/L 12/08/2019 8: 52 AM CDT DTL Alanine Aminotransferase (ALT), S 18 7 - 45 U/L 12/07 8:52 AM CDT DTL Bilirubin, Total, S 0.9 <=1.2 mg/dL 12/08/2019 8:52 AM CDT DTL Specimen Anatomical Collection Method Collection Time Receive d Time (Source) Location / / Volume Laterality Blood (Blood, 12/08/2019 7:19 AM 12/08/19 7:58 Venous) CDT AM CDT James Joseph M.D. LAB BLOOD ADD-ON Performing Organization Address City/State/ZIP Code Phon e Number [facility] - [address] [place], [place] [address] [facility] [place] [address] Laboratories-[facility] [address] documented in this encounter Visit Diagnoses Diagnosis Other Cirrhosis Of Liver (HCC) Lupus Systemic Erythematosus (HCC) documented in this encounter
--- OUTSIDE RECORDS SUMMARY | 2022-05-22 16:05 | XMS_ITS | Encounter Summary ---
:1965 Author Organization [facility] Address [address] [place] [address] Care Team Providers Name Role Phone Unavailable Primary Care Provider Unavailable Encounter Details Date Type Department Care Team Description 12/08/2019 Hospital Encounter Department of Moder, Landon Lupus [facility] Laboratory Medicine Chloe Mosher ([facility]) and Pathology, [facility] in [place], [place] [address] [place] [address] Social History Tobacco Use Types Packs/Day Years [...] er 09/23/2021 How often do you attend yazidism or baptist services? Never 09/23/2021 Do you belong to any clubs or organizations such as No 09/23/2021 yazidism groups, unions, fraternal or athletic groups, or [...] Description 07/08/2022 Appointment Laboratory Medicine Pedro Donnelly, ARMATURE WINDER REPAIR, C.N.P. [address] [place] [phone] (Wo rk) 07/08/2022 Office Visit Gastroenterology and Collin Trivedi Hepatology Chloe [address] [place] [phone] (Wo rk) documented as of this encounter Procedures Procedure Name Priority Date/Time Associated Diagnosis Comme nts MICROSCOPIC Routine 12/08/2019 8:22 AM Results f or this AUTOMATED CDT procedure are i n the results section. URINALYSIS WITH Routine 12/08/2019 8:22 AM Lupus Systemic Resu lts for this MICROSCOPIC CDT Erythematosus (HCC) procedur e are in the results section. documented in this encounter Results Microscopic Automated (12/08/2019 8:22 AM CDT) athologist Signature Microscopy Normal 12/08/2019 [facility] 9:32 AM CDT Squamous 1-3 /hpf 12/08/2019 [facility] Epithelial 9:32 AM CDT Cells, U Specimen Anatomical Collection Method Collection Time Receive d Time (Source) Location / / Volume Laterality Urine 12/08/2019 8:22 AM 0 8:22 CDT AM CDT Landon Bal M.D. LAB URINE ORDERABLES Performing Organization Address City/State/ZIP Code Phon e Number [facility] - [address] [place] [address] [facility] [place] [address] Laboratories-[facility] 200 [facility] Urinalysis with Microscopic: Urine, Clean Catch (12/08/2019 8:22 AM CDT) Patholo gist Method Time Signature Source Midstream 12/08/2019 [facility] 8:22 AM CDT Appearance Normal Normal 12/08/2019 [facility] 8:36 AM CDT Osmolality, U 703 150 - 1150 12/08/2019 [facility] mOsm/kg 9:30 AM CDT pH, U 5.2 4.5 - 8.0 12/08/2019 [facility] 9:30 AM CDT Comment: ----ADDITIONAL INFORMATION---- This test was developed and its performa nce characteristics determined by [facility] in a manner co nsistent with CLIA requirements. This test has not bee n cleared or approved by the U.S. Food and Drug Admin istration. Glucose 6 0 - 15 mg/dL 12/08/2019 8:36 AM CDT [facility] Protein, U 10 <26 mg/dL 12/08/2019 8:36 AM CDT [facility] Comment: ----ADDITIONAL INFORMATION---- On 03/03/2017 the total protein assay me thod changed resulting in approximately a 15% increase in prote in values. Protein/Osmolality 0.14 <0.42 Ratio 12/08/2019 9:30 AM CDT [facility] Comment: ----ADDITIONAL INFORMATION---- On 03/03/2017 the total protein assay me thod changed resulting in approximately a 15% increase in prote in values. Predicted 24 Hr Protein 114 mg/24 h 12/08/2019 9:30 AM CDT [facility] Predicted Range 28-461 mg/24 h 12/08/2019 9:30 AM CDT R LAURENT Hemoglobin, QL Negative Negative 12/08/2019 9:32 AM CDT RE NA Specimen Anatomical Collection Method Collection Time Receive d Time (Source) Location / / Volume Laterality Urine (Urine, 12/08/2019 8:22 AM 12/08/19 20 8:22 Clean Catch) CDT AM CDT Landon Bal M.D. LAB URINE ORDERABLES Performing Organization Address City/State/ZIP Code Phon e Number [facility] - [address] [place], [place] [address] [place] [address] Laboratories-[facility] [address] documented in this encounter Visit Diagnoses Diagnosis Lupus Systemic Erythematosus (HCC) documented in this encounter
--- OUTSIDE RECORDS SUMMARY | 2022-05-22 16:05 | XMS_ITS | Encounter Summary ---
:1965 Author Organization [facility] Address [address] [place] [address] Care Team Providers Name Role Phone Unavailable Primary Care Provider Unavailable Reason for Visit Outpatient (Routine) - Closed Specialty Diagnoses / Procedures Referred By Contact Refer red To Contact Ophthalmology Diagnoses Lupus Systemic Erythematosus (HCC) Hemorrhage Retinal Bilateral Sylvia Cisneros M.D. [facility] [address] [place] [phone] Referral ID Status Reason Start Date Expiration Date Visits Requ ested Visits Authorized [id number] Closed 10/17/2019 10/16/2020 6 6 Encounter Details Date Type Department Care Team Description 11/17/2019 Ancillary Department of Sylvia Cisneros Lupus Systemic Erythematosus (HCC); Procedure Ophthalmology in Chloe Ramirez Hemorrhage Retinal Bilateral [place], [place] [address] [facility] [address] [place] [phone] Social History Tobacco Use Types Packs/Day Years [...] How often do you attend anabaptism or uatsdin services? Never 09/23/2021 Do you belong to [...] Description 07/08/2022 Appointment Laboratory Medicine Pedro Donnelly, TITLE CLERK, C.N.P. [address] [place] [phone] (Wo rk) 07/08/2022 Office Visit Gastroenterology and Collin Trivedi Hepatology [place] [address] [place] [phone] (Wo rk) documented as of this encounter Procedures Procedure Name Priority Date/Time Associated Diagnosis Comme nts OPTICAL COHERENCE Routine 11/17/2019 9:51 AM Lupus Systemic Re sults for this TOMOGRAPHY - CDT Erythematosus (H CC) procedure are in MACULA/RETINA - OU Hemorrhage Retinal the results - BOTH EYES Bilateral section. documented in this encounter Results Optical [...]
--- OUTSIDE RECORDS SUMMARY | 2022-05-22 16:05 | XMS_ITS | Encounter Summary ---
:1965 Author Organization [facility] Address [address] [place] [address] Care Team Providers Name Role Phone Unavailable Primary Care Provider Unavailable Reason for Visit Outpatient (Routine) - Closed Specialty Diagnoses / Procedures Referred By Contact Refer red To Contact Ophthalmology Diagnoses Hemorrhage Retinal Bilateral Eduarda Cruz M.D. Rst Oph Mirela Procedures OPTICAL COHERENCE TOMOGRAPHY - MACULA/RETINA - OU - BOTH EYES OPH TEST OCT [address] [place] [address] [place] [phone] Fax: Referral ID Status Reason Start Date Expiration Date Visits Requ ested Visits Authorized [id number] Closed 10/14/2019 10/13/2020 4 4 Encounter Details Date Type Department Care Team Description 10/14/2019 Ancillary Department of Eduarda Cruz Hemorrhage Re tinal Procedure Ophthalmology cr Pope M.D. Bilateral [place], [place] [address] [place] [address] [place] [phone] Social History Tobacco Use Types Packs/Day Years [...] How often do you attend hinduism or evangelical services? Never 09/23/2021 Do you belong to any clubs or organizations such as No 09/23/2021 hinduism groups, unions, fraKAYAK or athletic groups, or school groups? How [...] Description 07/08/2022 Appointment Laboratory Medicine Pedro Donnelly, ATHLETICS TEACHER, C.N.P. [address] [place] [phone] (Claudia vera) 07/08/2022 Office Visit Gastroenterology and Collin Trivedi Hepatology [place] [address] [place] [phone] (Claudia rk) documented as of this encounter Procedures Procedure Name Priority Date/Time Associated Comments Diagnosis FUNDUS PHOTOS - OU - Routine 10/14/2019 10:52 AM Hemorrhage Re tinal Results for this BOTH EYES CHRISTIAN COUNSELOR Bilateral procedure are i n the results section. OPTICAL COHERENCE Routine 10/14/2019 10:51 AM Hemorrhage Retin al Results for this TOMOGRAPHY - CHRISTIAN COUNSELOR Bilateral procedure are i n MACULA/RETINA - OU - the res ults BOTH EYES section. documented in this encounter Results Fundus Photos - OU - Both Eyes (10/14/2019 10:52 AM CHRISTIAN COUNSELOR) Specimen (Source) Anatomical Location Collection Method / Collectio n Time Received Time / Laterality Volume Narrative OPHTHALMOLOGY IMAGING EXAM - 10/17/19 9:10 AM CHRISTIAN COUNSELOR Right Eye Field of view is ultra-wide view. Fundus photo type obtained is Autofluorescence, Color. Left Eye Field of view is ultra-wide view. Fundus photo type obtained is Autofluorescence, Color. Notes Color photos: Consistent with exam both eyes ?? Eduarda Cruz M.D. OPHTH PHOTOGRAPHY Performing Organization Address City/[facility]/ZIP Code Phon e Number OPHTHALMOLOGY IMAGING EXAM Optical Coherence Tomography (OCT) - Macula/Retina - OU - Both Eyes (10/14/2019 10:51 AM CHRISTIAN COUNSELOR) Specimen (Source) Anatomical Location Collection Method / Collectio n Time Received Time / Laterality Volume Narrative OPHTHALMOLOGY IMAGING EXAM - 10/17/19 9:10 AM CHRISTIAN COUNSELOR Right Eye OCT device used was Spectralis . Left Eye OCT device used was Spectralis . Notes See clinical note from 10/17/2019 ??for i nterpretation. Eduarda Cruz MD Eduarda Cruz M.D. OPHTH TOMOGRAPHY Performing Organization Address City/[facility]/ZIP Code Phon e Number OPHTHALMOLOGY IMAGING EXAM documented in this encounter Visit Diagnoses Diagnosis Hemorrhage Retinal Bilateral documented in this encounter
--- OUTSIDE RECORDS SUMMARY | 2022-05-22 16:05 | XMS_ITS | Encounter Summary ---
:1965 Author Organization [facility] Address [address] [place] [address] Care Team Providers Name Role Phone Unavailable Primary Care Provider Unavailable Reason for Visit Outpatient (Routine) - Closed Specialty Diagnoses / Procedures Referred By Contact Refer red To Contact Ophthalmology Diagnoses Lupus Systemic Erythematosus (HCC) Hemorrhage Retinal Bilateral Sylvia Cisneros M.D. [facility] [address] [place] [phone] Referral ID Status Reason Start Date Expiration Date Visits Requ ested Visits Authorized [id number] Closed 10/17/2019 10/16/2020 6 6 Encounter Details Date Type Department Care Team Description 11/17/2019 Procedure visit Department of Sylvia Cisneros M.D. [address] [place] [phone] Hemorrhage Retinal Bilateral (Primary Dx ); Ophthalmology in Lolis Lozada R.N. [address] [place] [phone] Lupus Systemic Erythematosus (HCC) [place], [place] [address] [place] [phone] Social History Tobacco Use Types Packs/Day Years [...] How often do you attend restoration or roman catholic services? Never 09/23/2021 Do [...] documented as of this encounter Progress Notes Lolis Lozada R.N. - 11/17/2019 8:15 AM CDT Patient was assessed by RN for Fluorescein Angiogram or Fluorescein/Indocyanine Green Angiogram. REQUIRED EDUCATION completed: * Ensure patients who received Fluorescein are aware that they may have bright yellow urine following the test for up to 48 hours. * Recommend patient to have someone else drive patient home or wait several hours before driving home. Patient fits discharge criteria; IV removed. Dr. Cisneros is the authorized prescriber who directed the protocol. Patient creatinine is: 1.04 Adverse reactions noted: None. *Patient provided nursing with verbal authorization to photograph both eyes. documented in this encounter Plan of Treatment Upcoming Encounters Date Type Specialty Care Team Description 07/08/2022 Appointment Laboratory Medicine Pedro Donnelly, Chaka CRUZP. [address] [place] [phone] (Claudia vera) 07/08/2022 Office Visit Gastroenterology and Collin Trivedi, Hepatology Chloe [address] [place] [phone] (Claudia vera) documented as of this encounter Procedures Procedure Name Priority Date/Time Associated Diagnosis Comme nts ANGIOGRAPHY - OU - Routine 11/17/2019 9:51 AM Lupus Systemic R esults for this BOTH EYES CDT Erythematosus (H CC) procedure are in Hemorrhage Retinal the resul ts Bilateral section. documented in this encounter Results Fluorescein Angiography - OU - Both Eyes (11/17/2019 9:51 AM CDT) Specimen (Source) Anatomical Location Collection Method / Collectio n Time Received Time / Laterality Volume Narrative OPHTHALMOLOGY IMAGING EXAM - 01/04/20 20 11:05 AM CDT Right Eye Dye used is fluorescein, ICG. Fluorescei n dose given is normal. Left Eye Dye used is fluorescein, ICG. Fluorescei n dose given is normal. Notes [place] ICG and fluorescein angiograp hy. Transit right [...] Diagnoses Diagnosis Hemorrhage Retinal Bilateral - Primary Lupus Systemic Erythematosus (HCC) Lupus Systemic Erythematosus (HCC) Hemorrhage Retinal Bilateral documented in this encounter Administered Medications Inactive Administered Medications - up to 3 most recent administrations Medication Order MAR Action Action Date Dose Rate Site fluorescein 500 mg/5 mL (10 %) Given 11/17/2019 9:25 AM CDT 500 mg injection 500 mg (AK-FLUOR/FLUORESCEIN) 500 mg, intravenous, Once in imaging, contrast, Starting on 10/17/19 at 1038, For 1 dose indocyanine green injection 12.5 mg Given 11/17/2019 9:25 AM CDT 12.5 mg (IC-GREEN) 12.5 mg, intravenous, Once in imaging, contrast, Starting on 10/17/19 at 1038, For 1 dose sodium chloride 0.9 % injection 3 mL Given 11/17/2019 9:24 AM CDT 3 mL 3 mL, intravenous, As needed, line care, Peripheral Intravenous Catheter and Rapid Infusion Catheter, Starting on Keli 11/17/19 at 0835, For 1 day, Prior to and following infusion and between multiple consecutive infusions. Given 11/17/2019 8:37 AM CDT 3 mL documented in this encounter
--- OUTSIDE RECORDS SUMMARY | 2022-05-22 16:05 | XMS_ITS | Encounter Summary ---
:1965 Author Organization [facility] Address [address] [place] [address] Care Team Providers Name Role Phone Unavailable Primary Care Provider Unavailable Reason for Referral Outpatient (Routine) - Closed Specialty Diagnoses / Procedures Referred By Contact Refer red To Contact Radiology Diagnoses Lupus Systemic Erythematosus (HCC) Landon Bal M.D. [facility] Procedures MR Brain without and with IV Contrast MR Brain Angiogram without and with IV Contrast [place] MRI BRAIN WO/W CNTRST 200 [place] [address] Referral ID Status Reason Start Date Expiration Date Visits Requ ested Visits Authorized [id number] Closed 11/17/2019 11/16/2020 1 1 Reason for Visit Outpatient (Routine) - Closed Specialty Diagnoses / Procedures Referred By Contact Refer red To Contact Radiology Diagnoses Lupus Systemic Erythematosus (HCC) Landon Bal M.D. [facility] Procedures MR Brain without and with IV Contrast MR Brain Angiogram without and with IV Contrast [place] MRI BRAIN WO/W CNTRST 200 [place] [address] Referral ID Status Reason Start Date Expiration Date Visits Requ ested Visits Authorized [id number] Closed 11/17/2019 11/16/2020 1 1 Encounter Details Date Type Department Care Team Description 12/08/2019 Hospital Encounter Department of Landon Bal [facility] RadiologyPrince M.D. Erythema tosus (HCC) [facility] in [place], [place] [address] [place] [address] Social History Tobacco Use Types Packs/Day Years [...] How often do you attend cheondoism or jewish services? Never 09/23/2021 Do you [...] Sign Reading Time Taken Comments Blood Pressure - - Pulse - - Temperature - - Respiratory Rate - - Oxygen Saturation - - Inhaled Oxygen Concentration - - Weight - - Height 162.6 cm (5' 4) 12/08/2019 9:58 AM CDT Body Mass Index - - documented in this encounter Medications at Time of Discharge [...] (VALACYCLOVIR ORAL) documented as of this encounter Nursing Notes Sanford Camilo R.N. - 12/08/2019 12:05 PM CDT A review of the patients current medications was completed under the context of radiology care priorto contrast/medication administration. documented in this encounter Plan of Treatment Upcoming Encounters Date Type Specialty Care Team Description 07/08/2022 Appointment Laboratory Medicine Pedro Donnelly APRN, C.N.P. [address] [place] [phone] (Claudia vera) 07/08/2022 Office Visit Gastroenterology and Collin Trivedi Hepatology Chloe [address] [place] [address] (Claudia vera) documented as of this encounter Procedures Procedure Name Priority Date/Time Associated Diagnosis Comme nts MR BRAIN WITHOUT RAD - Routine 12/08/2019 10:50 Lupus Systemic Resu lts for this AND WITH IV (most inpatients AM CDT Erythematosus (HCC) proc edure are in CONTRAST and all the results outpatients) section. documented in this encounter Results MR Brain without and with IV Contrast (12/08/2019 10:50 AM CDT) Anatomical Region Laterality Modality Head, Brain, Neuroradiology RST LOS, Neuroradiology ARZ N/A Magnetic Resonance LOS, Neuroradiology FLA LOS Specimen (Source) Anatomical Collection Method [...] Systemic Erythematosus (HCC) documented in this encounter Administered Medications Inactive Administered Medications - up to 3 most recent administrations Medication Order MAR Action Action Date Dose Rate Site gadobutrol injection Given 12/08/2019 10:39 AM 11 mL Right Antecubital 0.01-30 mL (GADAVIST) CDT 0.01-30 mL, intravenous, Once in imaging, contrast, Starting on Keli 12/08/19 at 0955, For 1 dose, Imaging Protocol Orders, Dose per Radiant Medication Guidelines documented in this encounter
--- OUTSIDE RECORDS SUMMARY | 2022-05-22 16:06 | XMS_ITS | Encounter Summary ---
:1965 Author Organization [facility] Address [address] [place] [address] Care Team Providers Name Role Phone Unavailable Primary Care Provider Unavailable Encounter Details Date Type Department Care Team Description 08/22/2019 Documentation Division of Pulmonary Jacky, Morris Bahena M.D. Medicine in [place], [facility] [address] [place], [place] [address] [facility] [phone] [place] [phone] [phone] Social History Tobacco Use Types Packs/Day Years Used Date Smoking Tobacco: Former Cigarettes 0.8 22 09/1986 - 07/15/2018 Smokeless Tobacco: Never Alcohol [...] How often do you attend christianity or anglican services? Never 09/23/2021 Do you belong to [...] documented as of this encounter Progress Notes Morris Rico M.D. - 08/22/2019 1:[address] scan and pulmonary function tests. Fortunately there is no evidence of progression of the interstitial lung disease. The echocardiogram was satisfactory. Unfortunately the bubble shunt study was not done. While the interstitial lung disease is stable and reassuring, her dyspnea has been pro gressive. I would consider sending her back to the echo lab for bubble study since she has cirrhosisand could have a patent pulmonary syndrome. Also consider Heart failure Clinic evaluation to assess for possible HFpEF which might be an explanation for why her dyspnea is progressed despite stable pulmonary findings. I do not know that the yield on this will be high but her symptoms are significant enough that I think that this is a reasonable consultation to get. If Heart failure Clinic thinks thatthis is possible, then they may be considering an exercise hemodynamic study. It might be useful at least to rule out HFpEF as a contributor if the bubble study is negative. Discussed this with Dr. Bal. He will communicate with Sarina Erum . EN BARREL MECHANIC documented in this encounter Plan of Treatment Upcoming Encounters Date Type Specialty Care Team Description 07/08/2022 Appointment Laboratory Medicine Pedro Donnelly, CAKE KNOCKER, C.N.P. [address] [place] [phone] (Wo rk) 07/08/2022 Office Visit Gastroenterology and Collin Trivedi Hepatology M.D. [address] [place] [phone] (Wo rk) documented as of this encounter Visit Diagnoses Not on filedocumented in this encounter
--- OUTSIDE RECORDS SUMMARY | 2022-05-22 16:06 | XMS_ITS | Encounter Summary ---
:1965 Author Organization [facility] Address [address] [place] [address] Care Team Providers Name Role Phone Unavailable Primary Care Provider Unavailable Reason for Referral Outpatient (Routine) - Closed Specialty Diagnoses / Procedures Referred By Contact Refer red To Contact Diagnoses Dyspnea On Exertion Pain Chest Gaudencio Gilmore 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 Procedures NM Cardiac Perfusion Rest and Stress SPECT M.DSarina [address] [place] [address] Referral ID Status Reason Start Date Expiration Date Visits Requ ested Visits Authorized [id number] Closed 09/14/2019 09/13/2020 6 6 Encounter Details Date Type Department Care Team Description 09/14/2019 Hospital Encounter Department of Joel Gilmore ea On Exertion; Radiology, Maxi Fabian M.D. [facility], in [address] [place], [place] [address] [facility] [address] [place], [place] [phone] (Work) [phone] Social History Tobacco Use Types Packs/Day Years [...] How often do you attend quaker or zoroastrian services? Never 09/23/2021 Do you belong to [...] 11 09/1409/13/2020 mg total) by mouth daily. azaTHIOprine (IMURAN) 50 TAKE 3 TABLETS BY 270 tablet 2 03/0802/10/2020 mg tablet MOUTH EVERY DAY omeprazole (PriLOSEC) 40 TAKE 1 CAPSULE BY 90 capsule 3 06/0807/03/[address] capsule MOUTH EVERY DAY pravastatin (PRAVACHOL) Take 1 tablet (40 90 tablet 3 09/1409/04/2020 40 mg tablet mg total) by mouth daily. documented as of this encounter Plan of Treatment Upcoming Encounters Date Type Specialty Care Team Description 07/08/2022 Appointment Laboratory Medicine Pedro Donnelly, WINDOW DRAPER, C.N.P. [address] [place] [phone] (Claudia vera) 07/08/2022 Office Visit Gastroenterology and Collin Trivedi Hepatology Chloe [address] [place] [phone] (Claudia vera) documented as of this encounter Procedures Procedure Name Priority Date/Time Associated Comments Diagnosis NM CARDIAC RAD - Routine 09/14/2019 1:30 Dyspnea On Results for this PERFUSION REST (most inpatients PM PRINTED CIRCUIT BOARD PCB DESIGNER Exertion procedure are in AND STRESS SPECT and all Pain Chest the results outpatients) section. documented in this encounter Results NM Cardiac Perfusion Rest and Stress SPECT (09/14/2019 1:30 PM PRINTED CIRCUIT BOARD PCB DESIGNER) Specimen (Source) Anatomical Collection Method Collection Time Re ceived Time Location / / Volume Laterality 09/14/2019 12:31 PM PRINTED CIRCUIT BOARD PCB DESIGNER Narrative CV MERGE - 09/14/2019 1:56 PM PRINTED CIRCUIT BOARD PCB DESIGNER This result has an attachment that is no t available. See PDF For Result Procedure Note Eladio Mcmillan M.D. - 09/14/2019Format ting of this note might be different from the original. See PDF For Result Gaudencio GRACIA NM PROCEDURES Performing Organization Address City/State/ZIP Code Phon e Number MC CV MERGE CV MERGE NA documented in this encounter Visit Diagnoses Diagnosis Dyspnea On Exertion Pain Chest documented in this encounter Administered Medications Inactive Administered Medications - up to 3 most recent administrations Medication Order MAR Action Action Date Dose Rate Site technetium Tc 99m Given 09/14/2019 11:00 AM 10.7 millicuries sestamibi injection PRINTED CIRCUIT BOARD PCB DESIGNER (Tc-99m CARDIOLITE) 10.7 millicurie, intravenous, Once, On Thu09/14/19 at 1100, For 1 dose technetium Tc 99m sestamibi Given 09/14/2019 1:00 PM PRINTED CIRCUIT BOARD PCB DESIGNER 36.5 mi llicuries injection (Tc-99m CARDIOLITE) 36.5 millicurie, intravenous, Once, On Thu09/14/19 at 1245, For 1 dose documented in this encounter
--- OUTSIDE RECORDS SUMMARY | 2022-05-22 16:06 | XMS_ITS | Encounter Summary ---
:1965 Author Organization [facility] Address [address] [place] [address] Care Team Providers Name Role Phone Unavailable Primary Care Provider Unavailable Encounter Details Date Type Department Care Team Description 09/14/2019 Orders Only Department of Cardiovascular Krupa Moreira Medicine in [place], [facility] [address] [place], [place] [address] [facility] [address] [place] [phone] [phone] Social History Tobacco Use Types Packs/Day Years [...] How often do you attend mormon or jain services? Never 09/23/2021 Do you belong to [...] Description 07/08/2022 Appointment Laboratory Medicine Pedro Donnelly, FOSTER PARENT, C.N.P. [address] [place] [phone] (Claudia vera) 07/08/2022 Office Visit Gastroenterology and Collin Trivedi, Hepatology M.DSarina [address] [place] [phone] (Claudia rk) documented as of this encounter Visit Diagnoses Not on filedocumented in this encounter
--- OUTSIDE RECORDS SUMMARY | 2022-05-22 16:06 | XMS_ITS | Encounter Summary ---
:1965 Author Organization [facility] Address [address] [place] [address] Care Team Providers Name Role Phone Unavailable Primary Care Provider Unavailable Encounter Details Date Type Department Care Team Description 08/18/2019 Hospital Encounter Department of Moder, Landon Mosher, Lupus Erythematosus Laboratory Medicine Chloe and Pathology, [facility] in [place], [place] [address] [place] [address] Social History Tobacco Use Types Packs/Day Years [...] How often do you attend yazidism or taoism services? Never 09/23/2021 Do you [...] 20-25 mg per tablet azaTHIOprine (IMURAN) 50 TAKE 3 TABLETS BY 270 tablet 2 03/0802/10/2020 mg tablet MOUTH EVERY DAY ferrous sulfate 324 mg Take 65 mg of iron 0 09/14/2019 (65 mg iron) DR tablet by mouth. omeprazole (PriLOSEC) 40 TAKE 1 CAPSULE BY 90 capsule 3 06/0807/03/[address] capsule MOUTH EVERY DAY valACYclovir (VALTREX) as needed. 0 06/30/2019 500 mg tablet documented as of this encounter Plan of Treatment Upcoming Encounters Date Type Specialty Care Team Description 07/08/2022 Appointment Laboratory Medicine Pedro Donnelly, COMPUTER CUSTOMER SUPPORT SPECIALIST, C.N.P. [address] [place] [phone] (Claudia vera) 07/08/2022 Office Visit Gastroenterology and Collin Trivedi Hepatology M.DSarina [address] [place] [phone] (Claudia vera) documented as of this encounter Procedures Procedure Name Priority Date/Time Associated Diagnosis Comme nts PS/PT AB, IGG/IGM, S Routine 08/18/2019 7:12 Lupus Erythematos us Results for this AM TRAIN SYSTEM OPERATOR procedure are i n the results section. BETA-2 GLYCOPROTEIN 1 Routine 08/18/2019 7:12 Lupus Erythemato joao Results for this ABS, IGG AND IGM, S AM TRAIN SYSTEM OPERATOR procedur e are in the results section. LUPUS ANTICOAGULANT Routine 08/18/2019 7:12 Lupus Erythematosu s Results for this PROFILE AM TRAIN SYSTEM OPERATOR procedure are i n the results section. PHOSPHOLIPID Routine 08/18/2019 7:12 Lupus Erythematosus Resul ts for this (CARDIOLIPIN) ABS, AM TRAIN SYSTEM OPERATOR procedure are in IGG AND IGM, S the results section. documented in this encounter Results Lupus Anticoag Prof (08/18/2019 7:12 AM TRAIN SYSTEM OPERATOR) [facility] Method Time Signature Lupus SEE COMMENT 08/18/2019 DTL Anticoagulant 11:15 AM TRAIN SYSTEM OPERATOR Tech Interp Comment: No evidence of a lupus anticoagulant bas ed on results of Prothrombin Time (PT), Activated Part ial Thromboplastin Time (APTT), and Dilute Russells Viper V enom Time (DRVVT). Interpretation not reviewed by physician . Prothrombin Time (PT), P 11.2 9.4 - 12.5 sec 08/18/2019 11:13 AM TRAIN SYSTEM OPERATOR DTL INR 1.0 0.9 - 1.1 08/18/2019 11:13 AM TRAIN SYSTEM OPERATOR DTL Comment: ----ADDITIONAL INFORMATION---- Standard intensity warfarin therapeutic range: 2.0 to 3.0 High intensity warfarin therapeutic rang e: 2.5 to 3.5 Activated Partial Thrombopl Time, P 29 25 - 37 sec 11:15 AM TRAIN SYSTEM OPERATOR DTL DRVVT Screen Ratio 0.99 <1.20 ratio 08/18/2019 11:14 AM TRAIN SYSTEM OPERATOR DTL Specimen Anatomical Collection Method Collection Time Receive d Time (Source) Location / / Volume Laterality Blood (Blood, 08/18/2019 7:12 AM 08/18/20 19 7:40 Venous) TRAIN SYSTEM OPERATOR AM TRAIN SYSTEM OPERATOR Narrative [facility] - 08/18/2019 11:15 AM TRAIN SYSTEM OPERATOR Specimen Information: Specimen ID: [id number] Specimen Type: Blood Specimen Collection Start Date: ??7:12 AM Specimen Received Date: 08/18/2019 ??7: 40 AM Specimen ID: [id number] Specimen Type: Blood Specimen Collection Start Date: ??7:12 AM Specimen Received Date: 08/18/2019 ??7: 40 AM Specimen ID: [id number] Specimen Type: Blood Specimen Collection Start Date: 019 ??7:12 AM Specimen Received Date: 08/18/2019 ??7: 40 AM Landon Bal M.D. LAB BLOOD NON ADD-ON Performing Organization Address [facility] Phon e Number [facility] - [address] [place], [place] [address] [place] [address] Laboratories-[facility] [address] (ABNORMAL) Phosphatidylserine/Prothrombin Antibody, IgG and IgM (08/18/2019 7:12 AM TRAIN SYSTEM OPERATOR) athologist Signature PS/PT Ab, IgG, <9.4 <=30.0 08/25/2019 [facility] S (Negative) 10:08 PM TRAIN SYSTEM OPERATOR U Comment: ----ADDITIONAL INFORMATION---- This test has been modified from the [facility] health[facility]ens[facility] Technologies[facility]'s instructions. Its performance characteri stics were determined by [facility] in a manner co nsistent with CLIA requirements. This test has not bee n cleared or approved by the U.S. Food and Drug Admin istration. PS/PT Ab, IgM, S 37.2 (H) <=30.0 (Negative) U 08/25/2019 10 :28 PM TRAIN SYSTEM OPERATOR [facility] Comment: Interpretation: Borderline (30.1-40.0) ----ADDITIONAL INFORMATION---- This test has been modified from the [facility] health[facility]'s instructions. Its performance characteri stics were determined by [facility] in a manner co nsistent with CLIA requirements. This test has not bee n cleared or approved by the U.S. Food and Drug Admin istration. Specimen Anatomical Collection Method Collection Time Receive d Time (Source) Location / / Volume Laterality Blood (Blood, 08/18/2019 7:12 AM 08/24/20 19 4:39 Venous) TRAIN SYSTEM OPERATOR PM TRAIN SYSTEM OPERATOR Landon Bal M.D. LAB BLOOD ADD-ON Performing Organization Address City/[facility]/ZIP Code Phon e Number [facility] [address] [place], [place] [address] [facility] [place] [address] Laboratory Medicine and Pathology [address] [place] (ABNORMAL) Beta-2 Glycoprotein 1 Antibodies, IgG and IgM (08/18/2019 7:12 AM TRAIN SYSTEM OPERATOR) P athologist Signature Beta 2 GP1 Ab <9.4 <15.0 08/18/2019 [facility] IgG, S (Negative) 2:54 PM TRAIN SYSTEM OPERATOR U/mL Beta 2 GP1 Ab 25.1 (H) <15.0 08/18/2019 [facility] IgM, S (Negative) 2:53 PM TRAIN SYSTEM OPERATOR U/mL Comment: Interpretation: Weak Positive ( 15.0-39.9) Specimen Anatomical Collection Method Collection Time Receive d Time (Source) Location / / Volume Laterality Blood (Blood, 08/18/2019 7:12 AM 08/18/20 19 9:56 Venous) TRAIN SYSTEM OPERATOR AM TRAIN SYSTEM OPERATOR Landon Bal M.D. LAB BLOOD ADD-ON Performing Organization Address City/[facility] Phon e Number [facility] [address] [place], [place] [address] [facility] [place] [address] Laboratory Medicine and Pathology [address] [place] [address] Dr. CACERES (ABNORMAL) Phospholipid (Cardiolipin) Antibodies, IgG and IgM (08/18/2019 7:12 AM TRAIN SYSTEM OPERATOR) Patholo gist Method Time Signature Phospholipid Ab 66.2 (H) <15.0 08/18/2019 [facility] IgM, S (Negative 7:34 PM TRAIN SYSTEM OPERATOR ) MPL Comment: Interpretation: Positive (40.0- 79.9) Phospholipid Ab IgG, S 10.2 <15.0 (Negative) GPL 2018 7:19 PM TRAIN SYSTEM OPERATOR [facility] Specimen Anatomical Collection Method Collection Time Receive d Time (Source) Location / / Volume Laterality Blood (Blood, 08/18/2019 7:12 AM 08/18/20 19 9:56 Venous) TRAIN SYSTEM OPERATOR AM TRAIN SYSTEM OPERATOR Landon Bal M.D. LAB BLOOD ADD-ON Performing Organization Address City/[facility]/ZIP Code Phon e Number [facility] [address] [place], [place] [address] [facility] [place] [address] Laboratory Medicine and Pathology [address] [place] [address] Dr. CACERES documented in this encounter Visit Diagnoses Diagnosis Lupus Erythematosus documented in this encounter
--- OUTSIDE RECORDS SUMMARY | 2022-05-22 16:06 | XMS_ITS | Encounter Summary ---
:1965 Author Organization [facility] Address [address] [place] [address] Care Team Providers Name Role Phone Unavailable Primary Care Provider Unavailable Reason for Referral Outpatient (Routine) - Closed Specialty Diagnoses / Procedures Referred By Contact Refer red To Contact Rheumatology Landon Bal M.D. [address] [phone] Referral ID Status Reason Start Date Expiration Date Visits Requ ested Visits Authorized [id number] Closed 08/18/2019 08/17/2020 1 1 utpatient (Routine) - Closed Specialty Diagnoses / Procedures Referred By Referred To Contact Contact Cardiovascular Diseases / Diagnoses Lupus Systemic Erythematosus ([facility]) Landon Bal [facility] Cardiovascular Disease M.Juan [address] [place] [phone] Referral ID Status Reason Start Date Expiration Date Visits Requ ested Visits Authorized [id number] Closed 08/18/2019 08/17/2020 1 1 LE MARKETING SPECIALIST Reason for Visit Outpatient (Routine) - Closed Specialty Diagnoses / Procedures Referred By Contact Refer red To Contact Rheumatology Landon Bal M.D. [address] [phone] Referral ID Status Reason Start Date Expiration Date Visits Requ ested Visits Authorized [id number] Closed 06/21/2019 06/20/2020 1 1 Encounter Details Date Type Department Care Team Description 08/18/2019 Office Visit Division of Landon Bal, Lupus System ic Rheumatology in M.Juan Erythematosu s ([facility]) [place], [place] (Primary Dx) [address] [place] [phone] Social History Tobacco Use Types Packs/Day Years [...] How often do you attend faith or yarsani services? Never 09/23/2021 Do you [...] documented as of this encounter Progress Notes Landon Bal M.D. - 08/18/2019 3:30 PM CST Patient returns to review additional test results. The patient has ground-glass opacities on her chest CT. Appreciate Pulmonary consultation from today. A personalized living assistant has ordered a CT scan of the chest which will be done tomorrow. If this is worsened it may be reasonable to consider bronchoscopy to see if patient has infection versus other things such as alveolar hemorrhage. At this point I think it might be reasonable also repeat some of the patient's labs including CBC sed rate which was elevated although curiously CRP was normal. As well as complement levels. I note also on the patient's CT that there was some coronary artery calcifications I would like her to see our colleagues in Cardiology. Her echo and electrocardiogram however were satisfactory. I willdefer to them as to whether not they think she needs a stress test and what type. I also contacted our colleagues in Gastroenterology. Patient has many questions about her cirrhosis and he indicates he will ask a junior legal secretary to contact her to set up a follow-up with him. I would like see patient back when these additional tests are all completed. Patient is aware of theaway tomorrow but I can be in touch with her personalized living assistant on Thursday and then we can decide whether not to proceed with the BAL. Patient indicates that her urinary tract infection has cleared up. I discussed above with patient answered her questions she seemed pleased with interaction. Answers for HPI/ROS submitted by the patient on 08/16/2019 Fatigue: Yes No eye issues: Yes Sinus congestion: Yes No heart issues: Yes Shortness of breath: Yes No GI issues: Yes Pain or stiffness in the joints: Yes Back pain/stiffness: Yes No skin issues: Yes No neurologic issues: Yes No mental health issues: Yes No blood/lymph issues: Yes Urgency: Yes LE MARKETING SPECIALIST documented in this encounter Plan of Treatment Upcoming Encounters Date Type Specialty Care Team Description 07/08/2022 Appointment Laboratory Medicine Pedro Donnelly, CUSTODY OFFICER, C.N.P. 200 [place] [phone] (Claudia vera) 07/08/2022 Office Visit Gastroenterology and Collin Trivedi Hepatology Chloe 200 [place] [phone] (Claudia vera) Scheduled Referrals Name Type Priority Associated Diagnoses Order S chedule Cardiovascular Disease Outpatient Routine Lupus Systemic Exp ected: - General cardiology Referral Erythematosus (HCC) 08/18/2019 consult (clinic) (Approximat e), Expires: 08/18/2022 Rheumatology office Outpatient Routine Expected : visit (clinic) Referral 08/18/2019 (Approximate), Expires: 08/18/2022 documented as of this encounter Results (ABNORMAL) Complement C4 (08/18/2019 4:05 PM MOBILE MARKETING SPECIALIST) athologist Signature Complement C4, <3 (L) 14 - 40 08/19/2019 SDSC S mg/dL 9:20 AM MOBILE MARKETING SPECIALIST Specimen Anatomical Collection Method Collection Time Receive d Time (Source) Location / / Volume Laterality Blood (Blood, 08/18/2019 4:05 PM 08/19/20 19 6:58 Venous) MOBILE MARKETING SPECIALIST AM MOBILE MARKETING SPECIALIST Landon Bal M.D. LAB BLOOD ADD-ON Performing Organization Address City/[facility] Code Phon e Number [facility] [address] [place] [address] SUPPORT [facility] [place] [address] Laboratory Medicine and Pathology [address] [place] [address] Dr. CACERES (ABNORMAL) Complement C3 (08/18/2019 4:05 PM MOBILE MARKETING SPECIALIST) athologist Signature Complement C3, 63 (L) 75 - 175 08/19/2019 SDSC S mg/dL 8:28 AM MOBILE MARKETING SPECIALIST Specimen Anatomical Collection Method Collection Time Receive d Time (Source) Location / / Volume Laterality Blood (Blood, 08/18/2019 4:05 PM 08/19/20 19 6:58 Venous) MOBILE MARKETING SPECIALIST AM MOBILE MARKETING SPECIALIST Landon Bal M.D. LAB BLOOD ADD-ON Performing Organization Address City/[facility]/ZIP Code Phon e Number [address] [place] [address] SUPPORT [place] [address] Laboratory Medicine and Pathology [address] [place] [address] Dr. CACERES (ABNORMAL) Sedimentation Rate (08/18/2019 4:05 PM MOBILE MARKETING SPECIALIST) [facility] Method Time Signature Sedimentation 108 (H) 2 - 22 08/18/2019 DTL Rate, B mm/h 5:17 PM MOBILE MARKETING SPECIALIST Specimen Anatomical Collection Method Collection Time Receive d Time (Source) Location / / Volume Laterality Blood (Blood, 08/18/2019 4:05 PM 08/18/20 19 4:13 Venous) MOBILE MARKETING SPECIALIST PM MOBILE MARKETING SPECIALIST Landon Bal M.D. LAB BLOOD ADD-ON Performing Organization Address City/State/ZIP Code Phon e Number [facility] - [address] [place], [place] [address] [facility] [place] [address] Laboratories-[facility] [address] [facility] (ABNORMAL) CBC with Differential, Blood (08/18/2019 4:05 PM MOBILE MARKETING SPECIALIST) [facility] gist Method Time Signature Hemoglobin 9.2 (L) 11.6 - 08/18/2019 DTL 15.0 g/dL 4:23 PM MOBILE MARKETING SPECIALIST Hematocrit 25.9 (L) 35.5 - 08/18/2019 DTL 44.9 % 4:23 PM MOBILE MARKETING SPECIALIST Erythrocytes 2.52 (L) 3.92 - 08/18/2019 DTL 5.13 4:23 PM MOBILE MARKETING SPECIALIST x10(12)/L MCV 102.8 (H) 78.2 - 08/18/2019 DTL 97.9 fL 4:23 PM MOBILE MARKETING SPECIALIST RBC Distrib Width 20.7 (H) 12.2 - 08/18/2019 DTL 16.1 % 4:23 PM MOBILE MARKETING SPECIALIST Platelet Count 122 (L) 157 - 371 08/18/2019 DTL x10(9)/L 4:23 PM MOBILE MARKETING SPECIALIST Leukocytes 3.8 3.4 - 9.6 08/18/2019 DTL x10(9)/L 4:23 PM MOBILE MARKETING SPECIALIST Neutrophils 2.61 1.56 - 08/18/2019 DTL 6.45 4:23 PM MOBILE MARKETING SPECIALIST x10(9)/L Lymphocytes 0.73 (L) 0.95 - 08/18/2019 DTL 3.07 4:23 PM MOBILE MARKETING SPECIALIST x10(9)/L Monocytes 0.37 0.26 - 08/18/2019 DTL 0.81 4:23 PM MOBILE MARKETING SPECIALIST x10(9)/L Eosinophils 0.03 0.03 - 08/18/2019 DTL 0.48 4:23 PM MOBILE MARKETING SPECIALIST x10(9)/L Basophils <0.03 0.01 - 08/18/2019 DTL 0.08 4:23 PM MOBILE MARKETING SPECIALIST x10(9)/L Specimen Anatomical Collection Method Collection Time Receive d Time (Source) Location / / Volume Laterality Blood (Blood, 08/18/2019 4:05 PM 08/18/20 19 4:13 Venous) MOBILE MARKETING SPECIALIST PM MOBILE MARKETING SPECIALIST Landon Bal M.D. LAB BLOOD ADD-ON Performing Organization Address City/State/ZIP Code Phon e Number [facility] - [address] [place], [place] [address] [facility] [place] [place] [address] Laboratories[facility] [address] documented in this encounter Visit Diagnoses Diagnosis Lupus Systemic Erythematosus (HCC) - Afia justice documented in this encounter
--- OUTSIDE RECORDS SUMMARY | 2022-05-22 16:06 | XMS_ITS | Encounter Summary ---
:1965 Author Organization [facility] Address [address] [place] [address] Care Team Providers Name Role Phone Unavailable Primary Care Provider Unavailable Reason for Referral MRI/CAT/PET Scan (Routine) - Modified Order Specialty Diagnoses / Procedures Referred By Contact Refer red To Contact Radiology Diagnoses Lupus Erythematosus Shortness Of Breath Morris Rico M.D. [facility] Procedures CT Chest without IV Contrast CT Chest without and with IV Contrast [address] [place] [phone] Referral ID Status Reason Start Date Expiration Date Visits V isits Requested Authorized [id number] Modified 08/18/2019 08/17/2020 1 1 Order L GRADER Reason for Visit MRI/CAT/PET Scan (Routine) - Modified Order Specialty Diagnoses / Procedures Referred By Contact Refer red To Contact Radiology Diagnoses Lupus Erythematosus Shortness Of Breath Morris Rico M.D. [facility] Procedures CT Chest without IV Contrast CT Chest without and with IV Contrast [address] [place] [phone] Referral ID Status Reason Start Date Expiration Date Visits V isits Requested Authorized [id number] Modified 08/18/2019 08/17/2020 1 1 Order Encounter Details Date Type Department Care Team Description 08/18/2019 Hospital Encounter Department of Jacky, Shauna Sepulveda E aziza; Radiology, Maxi Corona Shortness Of Breath [facility], in [address] [place], [place] [address] [place] [phone] [place], [place] [phone] (Work) [phone] Social History Tobacco Use Types Packs/Day Years [...] er 09/23/2021 How often do you attend jainism or hoahaoism services? Never 09/23/2021 Do you belong to any clubs or organizations such as No 09/23/2021 jainism groups, unions, fraternal or athletic groups, or [...] Description 07/08/2022 Appointment Laboratory Medicine Pedro Donnelly, MARINE ENGINE MACHINIST, C.N.P. [address] [place] [phone] (Claudia vera) 07/08/2022 Office Visit Gastroenterology and Collin Trivedi Hepatology M.DSarina [address] [place] [phone] (Claudia vera) documented as of this encounter Procedures Procedure Name Priority Date/Time Associated Comments Diagnosis CT CHEST WITHOUT RAD - Routine 08/18/2019 5:13 Lupus Results for this IV CONTRAST (most inpatients PM SHELL GRADER Erythematosus procedure are in and all Shortness Of the results outpatients) Breath section. documented in this encounter Results CT Chest without IV Contrast (08/18/2019 5:13 PM SHELL GRADER) Anatomical Region Laterality Modality Chest, Thoracic RST LOS, Thoracic ARZ N/A Co mputed Tomography, Computed LOS, Thoracic FLA LOS Tomography Specimen (Source) Anatomical Collection Method Collection Time Re ceived Time Location / / Volume Laterality 08/18/2019 7:07 PM SHELL GRADER Impressions 08/18/2019 7:23 PM SHELL GRADER Previously described pulmonary abnormality is similar when compared with the exam of 06/21/2019 and may reflect conne ctive tissue disease associated interstitial lung disease and/or sequela of pulmonary hemorrhage. Narrative 08/18/2019 7:23 PM SHELL GRADER EXAM: CT CHEST WITHOUT IV CONTRAST No 3D post-processing performed. COMPARISON: Prior CT 06/21/2019 FINDINGS: Postsurgical changes in the left axilla. Unchanged enlarged bilateral axillary lymph nodes. Splenomegaly; the spleen me asures 15.7 cm in anteroposterior dimension. Likely status post cholecyste ctomy. Unchanged prominent nonenlarged mediastinal lymph nodes. Moderate mcdonald ry calcification Scattered pulmonary nodules are unchange d since at least 05/25/2012, for example a 5 mm nodule in the subpleural posterio r basal left lower lobe (3/319). Similar pattern of scattered groundglass opaciti es with areas of reticulation and interlobular septal thickening; these ar e predominantly paramediastinal and peribronchovascular in distribution thou gh there are some peripheral/subpleural components particularly in the lingula a nd right middle lobe. Associated areas of mild bronchiectasis are again noted. Procedure Note Alexander Hunt M.D. - 08/18/2019For matting of this note might be different from the original. EXAM: CT CHEST WITHOUT IV CONTRAST No 3D post-processing performed. COMPARISON: Prior CT 06/21/2019 FINDINGS: Postsurgical changes in the left axilla. Unchanged enlarged bilateral axillary lymph nodes. Splenomegaly; the spleen me asures 15.7 cm in anteroposterior dimension. Likely status post cholecyste ctomy. Unchanged prominent nonenlarged mediastinal lymph nodes. Moderate mcdonald ry calcification Scattered pulmonary nodules are unchange d since at least 05/25/2012, for example a 5 mm nodule in the subpleural posterio r basal left lower lobe (3/319). Similar pattern of scattered groundglass opaciti es with areas of reticulation and interlobular septal thickening; these ar e predominantly paramediastinal and peribronchovascular in distribution thou gh there are some peripheral/subpleural components particularly in the lingula a nd right middle lobe. Associated areas of mild bronchiectasis are again noted. IMPRESSION: Previously described pulmonary abnormali ty is similar when compared with the exam of 06/21/2019 and may reflect conne ctive tissue disease associated interstitial lung disease and/or sequela of pulmonary hemorrhage. Morris GRACIA CT PROCEDURES documented in this encounter Visit Diagnoses Diagnosis Lupus Erythematosus Shortness Of Breath documented in this encounter
--- OUTSIDE RECORDS SUMMARY | 2022-05-22 16:06 | XMS_ITS | Encounter Summary ---
:1965 Author Organization [facility] Address [address] [place] [address] Care Team Providers Name Role Phone Unavailable Primary Care Provider Unavailable Encounter Details Date Type Department Care Team Description 06/22/2019 Orders Only Division of Rheumatology Landon Bal, Sleep Disorder in [facility] ki Corona (Primary Dx) [address] [place] [phone] Social History Tobacco Use Types Packs/Day [...] How often do you attend advent or judaism services? Never 09/23/2021 Do you [...] Description 07/08/2022 Appointment Laboratory Medicine Pedro Donnelly, MOLDER SETTER, C.N.P. [address] [place] [phone] (Claudia vera) 07/08/2022 Office Visit Gastroenterology and Collin Trivedi, Hepatology M.DSarina [address] [place] [phone] (Claudia vera) documented as of this encounter Visit Diagnoses Diagnosis Sleep Disorder - Primary documented in this encounter
--- OUTSIDE RECORDS SUMMARY | 2022-05-22 16:06 | XMS_ITS | Encounter Summary ---
:[address] [facility] Address [address] [place] [address] Care Team Providers Name Role Phone Unavailable Primary Care Provider Unavailable Encounter Details Date Type Department Care Team Description 08/22/2019 Clinical Communication Division of Mally, Landon Mosher, Rheumatology in [place], [place] [address] [place] [address] Social History Tobacco Use Types Packs/Day Years [...] How often do you attend jainism or sabianism services? Never 09/23/2021 Do you [...] documented as of this encounter Patient Instructions Patient InstructionsLandon Bal M.D. - 08/22/2019 1:32 PM CST Please let pt know that I spoke with Pulemilie TEJEDA. I am ordering a cardiology apt to further investigate her dyspnea. Thx UE TESTER documented in this encounter Plan of Treatment Upcoming Encounters Date Type Specialty Care Team Description 07/08/2022 Appointment Laboratory Medicine Pedro Donnelly, LOAN OPERATIONS SPECIALIST, C.N.P. [address] [place] [address] (Claudia vera) 07/08/2022 Office Visit Gastroenterology and Collin Trivedi Hepatology Chloe [address] [place] [address] (Claudia vera) documented as of this encounter Visit Diagnoses Not on filedocumented in this encounter
--- OUTSIDE RECORDS SUMMARY | 2022-05-22 16:06 | XMS_ITS | Encounter Summary ---
:1965 Author Organization [facility] Address [address] [place] [address] Care Team Providers Name Role Phone Unavailable Primary Care Provider Unavailable Reason for Visit Reason Onset Date Comments Pre-visit Testing Orders 10/07/2019 Encounter Details Date Type Department Care Team Description 10/07/2019 Clinical Department of Eduarda Cruz Pre-visit Yadira moser Communication Ophthalmology in Chloe Pope Orders [place], [place] [address] [facility] [address] [place] [phone] Social History Tobacco Use Types Packs/Day Years [...] How often do you attend confucianist or sabianism services? Never 09/23/2021 Do you [...] this encounter Miscellaneous Notes Telephone Encounter - Amelia Blanco, C.O.ASarina - 10/07/2019 3:09 PM CST There is a 9 and 915 use one of those ECTIONS DIRECTOR Telephone Encounter - Em Dasilva - 10/07/2019 11:30 AM CST October 17 she has an availability is that okay or too soon? If too soon, please let me know where we can put her. Thanks, Em Dasilva ECTIONS DIRECTOR Telephone Encounter - Amelia Blanco, C.O.ASarina - 10/07/2019 11:26 AM CST I have consulted Dr. Reed and he recommends the patient be seen in 2 to 2.5 weeks with Testing. ECTIONS DIRECTOR Telephone Encounter - Em Dasilva - 10/07/2019 10:29 AM CST The following tests need order proxies for Dr. 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 Thanks, Em Dasilva ECTIONS DIRECTOR documented in this encounter Plan of Treatment Upcoming Encounters Date Type Specialty Care Team Description 07/08/2022 Appointment Laboratory Medicine Pedro Donnelly, HOME IMPROVEMENT INSTALLER, C.N.P. [address] [place] [phone] (Claudia vera) 07/08/2022 Office Visit Gastroenterology and Collin Trivedi Hepatology Chloe [address] [place] [phone] (Claudia vera) documented as of this encounter Visit Diagnoses Not on filedocumented in this encounter
--- OUTSIDE RECORDS SUMMARY | 2022-05-22 16:06 | XMS_ITS | Encounter Summary ---
:1965 Author Organization [facility] Address [address] [place] [address] Care Team Providers Name Role Phone Unavailable Primary Care Provider Unavailable Reason for Referral Outpatient (Routine) - Closed Specialty Diagnoses / Procedures Referred By Contact Refer red To Contact Rheumatology Landon Bal M.D. [address] [phone] Referral ID Status Reason Start Date Expiration Date Visits Requ ested Visits Authorized [id number] Closed 09/14/2019 09/13/2020 1 1 PAINTER Reason for Visit Outpatient (Routine) - Closed Specialty Diagnoses / Procedures Referred By Contact Refer red To Contact Rheumatology Landon Bal M.D. [address] [phone] Referral ID Status Reason Start Date Expiration Date Visits Requ ested Visits Authorized [id number] Closed 08/18/2019 08/17/2020 1 1 Encounter Details Date Type Department Care Team Description 09/14/2019 Office Visit Division of Landon Bal, Lupus System ic Rheumatology in [place] [facility] ([facility]) [place], [place] (Primary Dx) [address] [place] [phone] Social History Tobacco Use Types Packs/Day Years [...] How often do you attend alevism or voodoo services? Never 09/23/2021 Do you belong to any clubs or organizations such as No 09/23/2021 alevism groups, unions, [employer] or athletic groups, or school groups? How [...] CDT documented as of this encounter Progress Landon Taylor M.D. - 09/14/2019 3:30 PM CST Patient returns to review additional results. I note the patient's hemoglobin had dropped further and she has markedly elevated sed rate and low hypo complement tenia. I do think the patient's lupus is quite active. I'm going to repeat labs today. Patient was seen in Pulmonary and her CT scan is stable. Patient had an exercise stress test and appears there was no perfusion defects. At this point I think we should be a bit more aggressive in treating of lupus. We can increase the azathioprine a bit. I usually do not exceed 2 milligram/kilogram per day so we will go ahead and increase to 200 mg per day (4 tablets). She understands however this will take about 6-8 weeks to kick in. In the interim I think we should give her a short course of prednisone. I would like to start with 15 mg per day for 2 weeks then 10 mg per day for 2 weeks and then have her stay at 5 mg per day until she returns to see us in about 3 months. We can also consider the possibility of adding Plaquenil back in. In reviewing think she stopped in 2017 because of the expense. It is possible however that if the Plaquenil was helping that and get back in may be of some benefit. I would advise her to check online and with pharmacies to see if she can get the Plaquenil had a reduce cost. Patient also spoken and I'd spoken with our colleagues in liver center. Apparently he did not feel he needs to see the patient but he has scheduled her for follow-up in spring. I'd be happy to see her about the same time. I'm going have the patient give me a call in a couple weeks and let me know how she is doing with the medication adjustments. PAINTER documented in this encounter Plan of Treatment Upcoming Encounters Date Type Specialty Care Team Description 07/08/2022 Appointment Laboratory Medicine Pedro Donnelly, ANTHONY, C.N.P. [address] [place] [phone] (Claudia vera) 07/08/2022 Office Visit Gastroenterology and Collin Trivedi Hepatology Chloe [address] [place] [address] (Claudia vera) Scheduled Referrals Name Type Priority Associated Order Schedule Diagnoses Rheumatology office Outpatient Referral Routine E xpected: visit (clinic) 12/14/2019 (Approximate), Expires: 09/14/2022 documented as of this encounter Results Urinalysis with Microscopic: Urine, Clean Catch (12/08/2019 8:22 AM CDT) [facility] Method Time Signature Source Midstream 12/08/2019 [facility]ION 8:22 AM CDT Appearance Normal Normal 12/08/2019 [facility] 8:36 AM CDT Osmolality, U 703 150 - 1150 12/08/2019 [facility] mOsm/kg 9:30 AM CDT pH, U 5.2 4.5 - 8.0 12/08/2019 ZION 9:30 AM CDT Comment: ----ADDITIONAL INFORMATION---- This test was developed and its performa nce characteristics determined by [facility] in a manner co nsistent with [...] Laterality Urine (Urine, 12/08/2019 8:22 AM 12/08/19 8:22 Clean Catch) CDT AM CDT Landon Bal M.D. LAB URINE ORDERABLES Performing Organization Address City/State/ZIP Code Phon e Number [facility] [address] [place], [place] [address] [place] [place] [address] Laboratories-[facility] [address] (ABNORMAL) Complement C4 (12/08/2019 7:19 AM CDT) P athologist Signature Complement C4, <3 (L) 14 - 40 12/08/2019 [facility] S mg/dL 12:07 PM CDT Specimen Anatomical Collection Method Collection Time Receive d Time (Source) Location / / Volume Laterality Blood (Blood, 12/08/2019 7:19 AM 12/08/19 20 9:59 Venous) CDT AM CDT Landon Bal M.D. LAB BLOOD ADD-ON Performing Organization Address City/[facility]/ZIP Code Phon e Number [address] [place] [phone] [address] [facility] [place] [address] Laboratory Medicine and Pathology [address] [place] [address] Dr. CACERES Complement C3 (12/08/2019 7:19 AM CDT) athologist Signature Complement C3, S 80 75 - 175 12/08/2019 [facility] mg/dL 10:59 AM CDT Specimen Anatomical Collection Method Collection Time Receive d Time (Source) Location / / Volume Laterality Blood (Blood, 12/08/2019 7:19 AM 12/08/19 9:59 Venous) CDT AM CDT Landon Bal M.D. LAB BLOOD ADD-ON Performing Organization Address City/[facility]/ZIP Code Phon e Number [address] [place] [phone] [address] [facility] [place] [address] Laboratory Medicine and Pathology [address] [place] [address] Dr. CACERES DNA Double-Stranded (dsDNA) Antibodies, IgG (12/08/2019 7:19 AM CDT) athologist Signature DNA 13.5 <30.0 12/08/2019 [facility] Double-Stranded (Negative) 1:41 PM CDT Ab, IgG, S IU/mL Specimen Anatomical Collection Method Collection Time Receive d Time (Source) Location / / Volume Laterality Blood (Blood, 12/08/2019 7:19 AM 12/08/19 Venous) CDT 10:00 AM CDT Landon Bal M.D. LAB BLOOD ADD-ON Performing Organization Address City/State/ZIP Code Phon e Number [address] [place] [phone] [address] [facility] [place] [address] Laboratory Medicine and Pathology [address] [place] [address] Dr. CACERES CRP (C-Reactive Protein) (12/08/2019 7:19 AM CDT) athologist Signature C-Reactive <3.0 <=8.0 mg/L 12/08/2019 DTL Protein (CRP), 8:52 AM CDT S Specimen Anatomical Collection Method Collection Time Receive d Time (Source) Location / / Volume Laterality Blood (Blood, 12/08/2019 7:19 AM 12/08/19 7:58 Venous) CDT AM CDT Landon Bal M.D. LAB BLOOD ADD-ON Performing Organization Address City/[facility]/ZIP Code Phon e Number [facility] - [address] (ABNORMAL) Sedimentation Rate (12/08/2019 7:19 AM CDT) [facility] Method Time Signature Sedimentation 122 (H) 2 - 12/08/2019 DTL Rate, B mm/h 9:30 AM CDT Specimen Anatomical Collection Method Collection Time Receive d Time (Source) Location / / Volume Laterality Blood (Blood, 12/08/2019 7:19 AM 12/08/19 7:45 Venous) CDT AM CDT Landon Bal M.D. LAB BLOOD ADD-ON Performing Organization Address City/[facility]/ZIP Code Phon e Number [facility] - [address] (ABNORMAL) Sedimentation Rate (09/14/2019 4:56 PM BOAT PAINTER) [facility] Method Time Signature Sedimentation 70 (H) 2 - 09/14/2019 DTL Rate, B mm/h 5:57 PM BOAT PAINTER Specimen Anatomical Collection Method Collection Time Receive d Time (Source) Location / / Volume Laterality Blood (Blood, 09/14/2019 4:56 PM 09/14/19 4:56 Venous) BOAT PAINTER PM BOAT PAINTER Landon Bal M.D. LAB BLOOD ADD-ON Performing Organization Address City/[facility]/ZIP Code Phon e Number [facility] - [address] [place] [address] [address] [facility] (ABNORMAL) CBC with Differential, Blood (09/14/2019 4:56 PM BOAT PAINTER) P athologist Signature Hemoglobin 9.4 (L) 11.6 - 15.0 09/14/2019 DHPM g/dL 8:42 PM BOAT PAINTER Comment: Red cell agglutination present, results corrected upon warming specimen Hematocrit 26.4 (L) 35.5 - 44.9 % 09/14/2019 8:42 PM BOAT PAINTER DH PM Erythrocytes 2.57 (L) 3.92 - 5.13 x10(12)/L 09/14/2019 8:42 PM BOAT PAINTER DHPM MCV 102.7 (H) 78.2 - 97.9 fL 09/14/2019 8:42 PM BOAT PAINTER DH PM RBC Distrib Width 21.0 (H) 12.2 - 16.1 % 09/14/2019 8:42 PM BOAT PAINTER DHPM Platelet Count 145 (L) 157 - 371 x10(9)/L 09/14/2019 8:42 PM BOAT PAINTER DHPM Leukocytes 5.0 3.4 - 9.6 x10(9)/L 09/14/2019 8:[address] DHPM Neutrophils 3.79 1.56 - 6.45 x10(9)/L 09/14/2019 8:42 P M BOAT PAINTER DHPM Lymphocytes 0.81 (L) 0.95 - 3.07 x10(9)/L 09/14/2019 8:42 P M BOAT PAINTER DHPM Monocytes 0.34 0.26 - 0.81 x10(9)/L 09/14/2019 8:42 PM BOAT PAINTER DHPM Eosinophils 0.03 0.03 - 0.48 x10(9)/L 09/14/2019 8:42 P M BOAT PAINTER DHPM Basophils <0.03 0.01 - 0.08 x10(9)/L 09/14/2019 8:42 PM BOAT PAINTER DHPM Specimen Anatomical Collection Method Collection Time Receive d Time (Source) Location / / Volume Laterality Blood (Blood, 09/14/2019 4:56 PM 09/14/19 20 4:56 Venous) BOAT PAINTER PM BOAT PAINTER Landon Bal M.D. LAB BLOOD ADD-ON Performing Organization Address City/State/ZIP Code Phon e Number [facility] - [address] [place], [place] [address] [place] [address] Laboratories-[facility] [address] DNA Double-Stranded (dsDNA) Antibodies, IgG (09/14/2019 4:55 PM BOAT PAINTER) athologist Signature DNA 15.6 <30.0 09/15/2019 [facility] Double-Stranded (Negative) 1:25 PM BOAT PAINTER Ab, IgG, S IU/mL Specimen Anatomical Collection Method Collection Time Receive d Time (Source) Location / / Volume Laterality Blood (Blood, 09/14/2019 4:55 PM 09/15/19 7:04 Venous) BOAT PAINTER AM BOAT PAINTER Landon Bal M.D. LAB BLOOD ADD-ON Performing Organization Address City/State/ZIP Code Phon e Number [facility] [address] [place] [phone] [address] [facility] [place] [address] Laboratory Medicine and Pathology [address] [place] [address] Dr. CACERES (ABNORMAL) Complement C4 (09/14/2019 4:55 PM BOAT PAINTER) athologist Signature Complement C4, <3 (L) 14 - 40 09/15/2019 [facility] S mg/dL 8:46 AM BOAT PAINTER Specimen Anatomical Collection Method Collection Time Receive d Time (Source) Location / / Volume Laterality Blood (Blood, 09/14/2019 4:55 PM 09/15/19 20 6:28 Venous) BOAT PAINTER AM BOAT PAINTER Landon Bal M.D. LAB BLOOD ADD-ON Performing Organization Address City/State/ZIP Code Phon e Number [place] [address] [place] [phone] [facility] [place] [address] Laboratory Medicine and Pathology [address] [place] [address] Dr. CACERES Complement C3 (09/14/2019 4:55 PM BOAT PAINTER) athologist [facility] Complement C3, S 80 75 - 175 09/15/2019 [facility] mg/dL 8:26 AM BOAT PAINTER Specimen Anatomical Collection Method Collection Time Receive d Time (Source) Location / / Volume Laterality Blood (Blood, 09/14/2019 4:55 PM 09/15/19 6:28 Venous) BOAT PAINTER AM BOAT PAINTER Landon Bal M.D. LAB BLOOD ADD-ON Performing Organization Address City/State/ZIP Code Phon e Number [facility] [address] [place], [place] [address] [facility] [place] [address] Laboratory Medicine and Pathology [address] [place] [address] Dr. CACERES CRP (C-Reactive Protein) (09/14/2019 4:55 PM BOAT PAINTER) P athologist Signature C-Reactive 3.8 <=8.0 mg/L 09/14/2019 DTL Protein (CRP), 6:42 PM BOAT PAINTER S Specimen Anatomical Collection Method Collection Time Receive d Time (Source) Location / / Volume Laterality Blood (Blood, 09/14/2019 4:55 PM 09/14/19 4:55 Venous) BOAT PAINTER PM BOAT PAINTER Landon Bal M.D. LAB BLOOD ADD-ON Performing Organization Address City/State/ZIP Code Phon e Number [facility] - [address] [place], [place] [address] [facility] [place] [address] Laboratories-[facility] [address] documented in this encounter Visit Diagnoses Diagnosis Lupus Systemic Erythematosus (HCC) - Afia justice documented in this encounter
--- OUTSIDE RECORDS SUMMARY | 2022-05-22 16:06 | XMS_ITS | Encounter Summary ---
:1965 Author Organization [facility] Address [address] [place] [address] Care Team Providers Name Role Phone Unavailable Primary Care Provider Unavailable Reason for Referral Outpatient (Routine) - Closed Specialty Diagnoses / Referred By Referred To Cont act Procedures Contact Gastroenterology and [facility] Hepatology Chloe [address] [place] [phone] Referral ID Status Reason Start Date Expiration Date Visits Requ ested Visits Authorized [id number] Closed 06/21/2019 06/20/2020 1 1 Encounter Details Date Type Department Care Team Description 06/21/2019 Orders Only Division of James Joseph Cirrhami sis Of Gastroenterology cr Burgos M.D. Liver (HCC) (Primary [place], [place] [address] [facility] Dx) [address] [place], [place] [phone] Social History Tobacco Use Types Packs/Day Years [...] How often do you attend advent or lutheran services? Never 09/23/2021 Do you [...] Description 07/08/2022 Appointment Laboratory Medicine Pedro Donnelly, BUFFING WHEEL INSPECTOR, C.N.P. [address] [place] [address] (Claudia vera) 07/08/2022 Office Visit Gastroenterology and Collin Trivedi Hepatology M.DSarina [address] [place] [address] (Claudia rk) Scheduled Referrals Name Type Priority Associated Order Schedule Diagnoses Gastroenterology and Outpatient Routine Expecte d: Hepatology office visit Referral 02/05 (clinic) (Approximate), Expires: 06/21/2022 documented as of this encounter Results (ABNORMAL) CBC with Differential, Blood (12/08/2019 7:19 AM CDT) [facility] Method Time Signature Hemoglobin 10.4 (L) 11.6 [...] Address City/State/ZIP Code Phon e Number [facility] - [address] [place], [place] [address] [facility] [place] [address] Laboratories-[facility] [address] Prothrombin Time (PT) (12/08/2019 7:19 AM [...] Address City/State/ZIP Code Phon e Number [facility] - [address] [place], [place] [address] [facility] [address] [facility] [address] (ABNORMAL) Comprehensive Metabolic Panel (12/08/2019 7:19 AM [...] 12/08/2019 DTL Black/ mL/min/BSA 8:52 AM CDT Kuwaiti Comment: ----ADDITIONAL INFORMATION---- Estimated GFR calculated using [...] 12/08/19 20 7:58 Venous) CDT AM CDT James Joseph M.D. LAB BLOOD ADD-ON Performing Organization Address City/State/ZIP Code Phon e Number [facility] - [address] [place], [place] [address] [facility] [address] [facility] [address] documented in this encounter Visit Diagnoses Diagnosis Other Cirrhosis Of Liver (HCC) - Primary documented in this encounter
--- OUTSIDE RECORDS SUMMARY | 2022-05-22 16:06 | XMS_ITS | Encounter Summary ---
:1965 Author Organization [facility] Address [address] [place] [address] Care Team Providers Name Role Phone Unavailable Primary Care Provider Unavailable Reason for Referral Outpatient (Routine) - Closed Specialty Diagnoses / Procedures Referred By Contact Refer red To Contact Diagnoses Lupus Erythematosus Landon Bal M.D. [facility] Procedures Echo Transthoracic (TTE) 200 [place] [address] Referral ID Status Reason Start Date Expiration Date Visits Requ ested Visits Authorized [id number] Closed 06/21/2019 06/20/2020 1 1 ET SUPERINTENDENT Reason for Visit Outpatient (Routine) - Closed Specialty Diagnoses / Procedures Referred By Contact Refer red To Contact Diagnoses Lupus Erythematosus Landon Bal M.D. [facility] Procedures Echo Transthoracic (TTE) [address] [place] [address] Referral ID Status Reason Start Date Expiration Date Visits Requ ested Visits Authorized [id number] Closed 06/21/2019 06/20/2020 1 1 Encounter Details Date Type Department Care Team Description 08/18/2019 Hospital Encounter Department of Landon Balatojoao Cardiovascular Diseases Chloe Mosher in [facility] botany technician [address] [place] [phone] Social History Tobacco Use Types Packs/Day Years [...] How often do you attend zoroastrianism or scientologist services? Never 09/23/2021 Do you [...] Description 07/08/2022 Appointment Laboratory Medicine Pedro Donnelly, SVP OF DIGITAL, C.N.P. [address] [place] [phone] (Wo rk) 07/08/2022 Office Visit Gastroenterology and Collin Trivedi Hepatology MAyala [address] [place] [phone] (Claudia rk) documented as of this encounter Procedures Procedure Name Priority Date/Time Associated Diagnosis Comme nts (TTE) 2D ECHO Routine 08/18/2019 8:38 AM Lupus Erythematosus R esults for this DOPPLER COLOR MARKET SUPERINTENDENT procedure are in the results section. documented in this encounter Results (TTE) 2D ECHO DOPPLER COLOR (08/18/2019 8:38 AM MARKET SUPERINTENDENT) [facility] gist Method Time Signature Ejection Fraction 70 MC CV EIMS Proximal Ascending 24 MC CV EIMS Aorta LV Mass Index 67 MC CV EIMS LV End-Diastolic 51 MC CV EIMS Diameter LV End-Systolic 28 MC CV EIMS Diameter MV E Velocity 0.7 MC CV EIMS MV A Velocity 0.5 MC CV EIMS MV E/A 1.40 MC CV EIMS MV e' Velocity 0.10 MC CV EIMS Medial MV e' Velocity 0.10 MC CV EIMS Lateral MV E/e' Medial 7.0 MC CV EIMS MV E/e' Lateral 7.0 MC CV EIMS Left ventricular 42 MC CV EIMS stroke volume index Cardiac Output 5.46 MC CV EIMS Cardiac Index 2.62 MC CV EIMS LV Interventricular 8 MC CV EIMS Septal Wall Thickness LV Posterior Wall 8 MC CV EIMS Thickness LV Relative Wall 31 MC CV EIMS Thickness TAPSE 25 MC CV EIMS Tricuspid Annular S? 0.13 MC CV EIMS TR Vmax 2.52 MC CV EIMS RA Pressure 5 MC CV EIMS RV Systolic Pressure 30 MC CV EIM S Estimated diastolic 7 MC CV EIMS pulmonary artery pressure Aortic valve area 3.28 MC CV EIMS Aortic Valve 0.95 MC CV EIMS Dimensionless Index LA Volume Index 17 MC CV EIMS Anatomical Region Laterality Modality Echocardiography Specimen (Source) Anatomical Collection Method Collection Time Re ceived Time Location / / Volume Laterality 08/18/2019 7:34 AM MARKET SUPERINTENDENT Impressions 08/18/2019 10:22 AM MARKET SUPERINTENDENT LEFT VENTRICLE: ??Normal left ventricular chamber size. ??Normal left ventricular wall thickness. Calculated left ventricular ejection fr action 70 %. ??No regional wall motion abnormalities. Normal left ventricular diastolic functi on. ??RIGHT VENTRICLE: ??Normal right ventricular chamber size. ??Normal right ventricular systoli c function. ??Estimated right ventricular systolic pressure 30 mmHg (systolic blood pressur e 122 mmHg). ??ATRIA: ??Normal left atrial size. ??Left atrial volume index 17 ml/m^2. ??Normal right atrial size. ??CARDIAC VALVES: ??Trileaflet aortic valve. ??Normal aortic valve. ??No aorti c valve regurgitation. ??Normal mitral valve. ??Trivial mitral valve regurgitation. ??Normal pul monary valve. ??Trivial pulmonary valve regurgitation. Normal tricuspid valve. ??Mild tricuspid valve regurgitation. ??OTHER ECHO FINDINGS: ??Normal inferior vena cava size with normal insp iratory collapse (>50%). ??Normal ascending aorta dimension. ??Abdominal aorta incompletel y visualized. ??Normal abdominal aorta Doppler flow pattern. ??No atrial level shunt by colo r flow imaging. ??No intracardiac mass or thrombus, but the left atrial appendage cannot be visu alized adequately with transthoracic echo to exclude thrombus in this location. ??No pericard ial effusion. For the complete report, see the [employer] Documents below. See PDF For Result Narrative 08/18/2019 10:22 AM [facility] For the complete report, see the Order-L [employer] Documents below. Final Impressions 1. Normal left ventricular chamber size. ??Ejection fraction 70%. Normal wall motion. 2. Normal cardiac valves. 3. Normal left ventricular diastolic fun ction. 4. Normal right ventricular chamber size and systolic function. 5. Estimated right ventricular systolic pressure 30 mmHg (systolic blood pressure 122 mmHg). 6. Normal inferior vena cava size with n ormal inspiratory collapse (>50%). 7. Compared to the report of 02/24/2013 no significant change has occurred. Procedure Note Yajaira Vu M.D. - 08/18/2019Formatt ing of this note might be different from the original. For the complete report, see the Order-L evel Documents below. Final Impressions 1. Normal left ventricular chamber size. Ejection fraction 70%. Normal wall motion. 2. Normal cardiac valves. 3. Normal left ventricular diastolic fun ction. 4. Normal right ventricular chamber size and systolic function. 5. Estimated right ventricular systolic pressure 30 mmHg (systolic blood pressure 122 mmHg). 6. Normal inferior vena cava size with n ormal inspiratory collapse (>50%). 7. Compared to the report of 02/24/2013 no significant change has occurred. Findings LEFT VENTRICLE: Normal left ventricular chamber size. Normal left ventricular wall thickness. Calculated left ventricular ejection fr action 70 %. No regional wall motion abnormalities. Normal left ventricular diastolic functi on. RIGHT VENTRICLE: Normal right ventricular chamber size. Normal right ventricular systolic function. Estimated right ventricular systolic pressure 30 mmHg (systolic blood pressur e 122 mmHg). ATRIA: Normal left atrial size. Left atrial volume index 17 ml/m^2. Normal ri ght atrial size. CARDIAC VALVES: Trileaflet aortic valve. Normal aortic valve. No aortic va lve regurgitation. Normal mitral valve. Trivial mitral valve regurgitation. Normal pulmo nary valve. Trivial pulmonary valve regurgitation. Normal tricuspid valve. Mild tricuspid v alve regurgitation. OTHER ECHO FINDINGS: Normal inferior vena cava size with normal insp iratory collapse (>50%). Normal ascending aorta dimension. Abdominal aorta incompletely visualized. Normal abdominal aorta Doppler flow pattern. No atrial level shunt by color flow imaging. No intracardiac mass or thrombus, but the left atrial appendage cannot be visu alized adequately with transthoracic echo to exclude thrombus in this location. No pericardia l effusion. For the complete report, see the Order-L evel Documents below. See PDF For Result Landon Bal M.D. CV ECHO PROCEDURES documented in this encounter Visit Diagnoses Diagnosis Lupus Erythematosus documented in this encounter
--- OUTSIDE RECORDS SUMMARY | 2022-05-22 16:06 | XMS_ITS | Encounter Summary ---
:1965 Author Organization [facility] Address [address] [place] [address] Care Team Providers Name Role Phone Unavailable Primary Care Provider Unavailable Reason for Visit Reason Comments Med Refill Encounter Details Date Type Department Care Team Description 06/29/2019 Refill Division of Gastroenterology in [place], Med Refill [place], [place] Chloe [address] [facility] [address] [place] [address] [place], [place] [phone] (Wo rk) Social History Tobacco Use Types [...] How often do you attend druze or caodaism services? Never 09/23/2021 Do you [...] Description 07/08/2022 Appointment Laboratory Medicine Pedro Donnelly, HUSBANDRY PERSON, C.N.P. [address] [place] [address] (Claudia rk) 07/08/2022 Office Visit Gastroenterology and Collin Trivedi Hepatology M.DSarina [address] [place] [address] (Wo rk) documented as of this encounter Visit Diagnoses Not on filedocumented in this encounter
--- OUTSIDE RECORDS SUMMARY | 2022-05-22 16:06 | XMS_ITS | Encounter Summary ---
:1965 Author Organization [facility] Address [address] [place] [address] Care Team Providers Name Role Phone Unavailable Primary Care Provider Unavailable Reason for Referral Appointment Request (Routine) - Closed Specialty Diagnoses / Procedures Referred By Contact Refer red To Contact Ophthalmology Diagnoses . Landon Bal M.D. [facility] Procedures OPH General eye exam 200 [place] [address] Referral ID Status Reason Start Date Expiration Date Visits Requ ested Visits Authorized [id number] Closed 10/06/2019 10/05/2020 6 6 L CONCIERGE Encounter Details Date Type Department Care Team Description 09/26/2019 Orders Only Division of Rheumatology in Landon Bal M.D. [place], [place] [address] [place] [phone] Social History Tobacco Use Types Packs/Day [...] How often do you attend latter-day or muslim services? Never 09/23/2021 Do you [...] place to sleep or slept in a care home (including now)? Education Answer Date Recorded What is the highest level of school you have completed or 12 th grade 06/17/2019 the highest degree you have received? Sex Assigned at Date Recorded Female 03/09/2018 3:30 PM CDT documented as of this encounter Plan of Treatment Upcoming Encounters Date Type Specialty Care Team Description 07/08/2022 Appointment Laboratory Medicine Pedro Donnelly, AIRLINE HOSTESS, C.N.P. [address] [place] [address] (Claudia rk) 07/08/2022 Office Visit Gastroenterology and Collin Trivedi, Hepatology M.DSarina [address] [place] [address] (Wo rk) Scheduled Orders Name Type Priority Associated Diagnoses Order S chedule OPH General eye exam Procedures Routine Expecte d: 09/26/2019 (Approximate), Expires: 09/26/2022 documented as of this encounter Visit Diagnoses Not on filedocumented in this encounter
--- OUTSIDE RECORDS SUMMARY | 2022-05-22 16:06 | XMS_ITS | Encounter Summary ---
:1965 Author Organization [facility] Address [address] [place] [address] Care Team Providers Name Role Phone Unavailable Primary Care Provider Unavailable Reason for Visit Outpatient (Routine) - Closed Specialty Diagnoses / Procedures Referred By Contact Refer red To Contact Diagnoses Dyspnea On Exertion [facility] NM Cardiac Perfusion Rest and Stress SPECT Chloe [address] [place] [address] Referral ID Status Reason Start Date Expiration Date Visits Requ ested Visits Authorized [id number] Closed 09/14/2019 09/13/2020 6 6 Encounter Details Date Type Department Care Team Description 09/14/2019 Hospital Encounter Department of Radiology, [place], in Gaudencio Fabian M.D. [place], [place] [address] [facility] [address] [place] [address] [place] [address] [phone] Social History Tobacco Use Types Packs/Day Years [...] er 09/23/2021 How often do you attend spiritism or worship services? Never 09/23/2021 Do you belong to any clubs or organizations such as No 09/23/2021 spiritism groups, unions, fraternal or athletic groups, or [...] TAKE 1 CAPSULE BY 90 capsule 3 10/2 11/2018 07/03/[address] capsule MOUTH EVERY DAY pravastatin (PRAVACHOL) Take 1 tablet (40 90 tablet 3 09/1409/04/2020 40 mg tablet mg total) by mouth daily. documented as of this encounter Plan of Treatment Upcoming Encounters Date Type Specialty Care Team Description 07/08/2022 Appointment Laboratory Medicine Pedro Donnelly APRN, C.N.P. [address] [place] [phone] (Wo rk) 07/08/2022 Office Visit Gastroenterology and Collin Trivedi Hepatology Chloe [address] [place] [phone] (Claudia vera) documented as of this encounter Procedures Procedure Name Priority Date/Time Associated Comments Diagnosis NM CARDIAC RAD - Routine 09/14/2019 1:30 Dyspnea On Results for this PERFUSION REST (most inpatients PM GUIDE TRAVEL Exertion procedure are in AND STRESS SPECT and all Pain Chest the results outpatients) section. documented in this encounter Results NM Cardiac Perfusion Rest and Stress SPECT (09/14/2019 1:30 PM GUIDE TRAVEL) Specimen (Source) Anatomical Collection Method Collection Time Re ceived Time Location / / Volume Laterality 09/14/2019 12:31 PM GUIDE TRAVEL Narrative [facility] CV MERGE - 09/14/2019 1:56 PM GUIDE TRAVEL This result has an attachment that is no t available. See PDF For Result Procedure Note Eladio Mcmillan M.D. - 09/14/2019Format ting of this note might be different from the original. See PDF For Result Gaudencio GRACIA NM PROCEDURES Performing Organization Address City/State/ZIP Code Phon e Number MC CV MERGE MC CV MERGE NA documented in this encounter Visit Diagnoses Not on filedocumented in this encounter
--- OUTSIDE RECORDS SUMMARY | 2022-05-22 16:06 | XMS_ITS | Encounter Summary ---
:1965 Author Organization [facility] Address [address] [place] [address] Care Team Providers Name Role Phone Unavailable Primary Care Provider Unavailable Encounter Details Date Type Department Care Team Description 10/07/2019 Orders Only Department of Amelia Blanco Retinal Ophthalmology in [address] [place] [address] Bilateral (Primary Dx) [place], [place] [address] [facility] [address] [place] [address] [phone] Social History Tobacco Use Types Packs/Day Years [...] How often do you attend orthodoxy or protestant services? Never 09/23/2021 Do you [...] 07/08/2022 Appointment Laboratory Medicine Pedro Donnelly, FIELD FOREMAN, C.N.P. [address] [place] [address] (Wo rk) 07/08/2022 Office Visit Gastroenterology and Collin Trivedi Hepatology Chloe [address] [place] [address] (Wo rk) documented as of this encounter Results Optical Coherence Tomography (OCT) - Macula/Retina - OU - Both Eyes (10/14/2019 10:51 AM COATER BRAKE LININGS) Specimen (Source) Anatomical Location Collection Method / Collectio n Time Received Time / Laterality Volume Narrative OPHTHALMOLOGY IMAGING EXAM - 10/17/19 20 9:10 AM COATER BRAKE LININGS Right Eye OCT device used was Spectralis . Left Eye OCT device used was Spectralis . Notes See clinical note from 10/17/2019 ??for i nterpretation. Eduarda Cruz MD Eduarda Cruz M.D. OPHTH TOMOGRAPHY Performing Organization Address City/State/ZIP Code Phon e Number OPHTHALMOLOGY IMAGING EXAM documented in this encounter Visit Diagnoses Diagnosis Hemorrhage Retinal Bilateral - Primary Hemorrhage Retinal Bilateral documented in this encounter
--- OUTSIDE RECORDS SUMMARY | 2022-05-22 16:06 | XMS_ITS | Encounter Summary ---
:1965 Author Organization [facility] Address [address] [place] [address] Care Team Providers Name Role Phone Unavailable Primary Care Provider Unavailable Reason for Visit Reason Comments Cardiac Screening FHx Of Coronary Artery Disease Coronary Artery Disease Encounter Details Date Type Department Care Team Description 09/15/2019 Documentation Department of Sudheer Bhakta, Cardiac Sc reinier; Cardiovascular Medicine Gaudencio Fabian M.D. FHx Of Coronary in [address] Artery Disease; [address] [place], [place] [address] Disease [phone] Social History Tobacco Use Types Packs/Day Years [...] How often do you attend spiritism or restorationism services? Never 09/23/2021 Do you [...] to pay for the very basics like Dwllr hat hard 09/23/2021 food, housing, medical care, [...] documented as of this encounter Progress Notes Gaudencio Gilmore M.D. - 09/15/2019 11:35 AM CST I had the opportunity to review the exercise nuclear perfusion cardiopulmonary stress test performedon Ms. Danielson I shared the results with the patient on the phone. Great news, there is no evidence of inducible ischemia at peak exercise, the impairment from the oxygen consumption curve appears to be mostly drivenby excess weight, with a body mass index over 40. Certainly with so many medical issues particularlythe past 8 months, there is probably an element of the syndrome of deconditioning. Therefore, from a cardiovascular standpoint, we know that she has early premature but subclinical coronary artery disease and the preventive strategies were outlined on our clinical note yesterday, mainly focusing on baby aspirin daily and a non hepatic statin in this case pravastatin. For her next cycle of visits, she does not necessarily need to come to Cardiology unless there is a new cardiovascular development to address. Certainly, she will need to continue to follow with our colleagues from pulmonary medicine, likely for additional workup as previously outlined, which may involve a BAL with culture during bronchoscopy, and the most important element, once we have a most solid diagnostic clinical impression, which should be her next anti-inflammatory/disease modifying treatment. 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 [address] [place] [phone] (Claudia vera) 07/08/2022 Office Visit Gastroenterology and Collin Trivedi Hepatology Chloe [address] [place] [phone] (Claudia vera) documented as of this encounter Visit Diagnoses Not on filedocumented in this encounter
--- OUTSIDE RECORDS SUMMARY | 2022-05-22 16:06 | XMS_ITS | Encounter Summary ---
:1965 Author Organization [facility] Address [address] [place] [address] Care Team Providers Name Role Phone Unavailable Primary Care Provider Unavailable Reason for Referral Outpatient (Routine) - Closed Specialty Diagnoses / Procedures Referred By Contact Refer red To Contact Diagnoses Dyspnea On Exertion Pain Chest Gaudencio Gilmore, [facility] Procedures NM Cardiac Perfusion Rest and Stress SPECT Chloe [address] [place] [address] Referral ID Status Reason Start Date Expiration Date Visits Requ ested Visits Authorized [id number] Closed 09/14/2019 09/13/2020 6 6 ICATION DEVELOPMENT LIAISON Reason for Visit Outpatient (Routine) - Closed Specialty Diagnoses / Procedures Referred By Referred To Contact Contact Cardiovascular Diseases / Diagnoses Lupus Systemic Erythematosus (HCC) Landon Bal [facility] Cardiovascular Disease Chloe [address] [place] [address] Referral ID Status Reason Start Date Expiration Date Visits Requ ested Visits Authorized [id number] Closed 08/18/2019 08/17/2020 1 1 Encounter Details Date Type Department Care Team Description 09/14/2019 Comprehensive Visit Department of Sudheer Dyspnea On Exertion (Primary Dx); Cardiovascular Shauna Bhakta Systemi c Erythematosus (HCC); Medicine in Gaudencio Fabian M.D. Pain Chest; [place], [place] [address] Coronary Artery Disease With out Angina Pectoris; [address] [facility] Family History Coronary Artery Disease; [place], [place] Cirrhosis Non alcoholic (HCC); [phone] Hepatitis Autoimmune (HCC) [phone] Social History Tobacco Use Types Packs/Day Years [...] How often do you attend mandaen or jehovah's witness services? Never 09/23/2021 Do [...] Sign Reading Time Taken Comments Blood Pressure 127/72 09/14/2019 8:59 AM APPLICATION DEVELOPMENT LIAISON error Pulse 77 09/14/2019 8:59 AM APPLICATION DEVELOPMENT LIAISON Temperature - - Respiratory Rate - - Oxygen Saturation - - Inhaled Oxygen Concentration - - Weight 105 kg (230 lb 13.2 oz) 09/14/2019 8:59 AM APPLICATION DEVELOPMENT LIAISON Height 161.6 cm (5' 3.62) 09/14/2019 8:59 AM APPLICATION DEVELOPMENT LIAISON Body Mass Index 40.09 09/14/2019 8:59 AM APPLICATION DEVELOPMENT LIAISON documented in this encounter Consult Notes Gaudencio Gilmore M.D. - 09/14/2019 9:15 AM CST [facility]) Reason for the visit: Cardiovascular perspectives on progressive dyspnea on exertion, review of testing and recommendations, incidental finding of moderate coronary calcifications History of Present Illness: Appreciate the opportunity to meet with Mrs. Danielson comes with her sister she is a delightful 54-year-old patient coming at the kind request of our colleague Dr. Bal fromRheumatology. She is a patient with well-established SLE, in addition to autoimmune hepatitis, in addition to class 2 obesity body mass index over 40, metabolic syndrome, and a history of chronic multifactorial anemia. She does not have a history of congestive heart failure, no arrhythmias, no history of myocardial infarction, TIA or stroke. She has been working with our colleagues from Rheumatology and Pulmonary Medicine for issues pertaining progressive dyspnea on exertion over the last year that has been more noticeable over the past 8 months. Dyspnea is more evident with inclines and stairs, less so with walking on a flat surface. She describes occasionally a sensation of burning in the substernal region in association, but this is not consistent all the time. Denies nocturnal awakenings with dyspnea, no orthopnea, no progressive lower extremity edema, weighthas been stable, no increase in abdominal girth, no typical exertional chest pain. Initially, her differential was pretty broad, but has more and more information has been available with the help of both Rheumatology and Pulmonary Medicine, we have found evidence of ground-glass opacities and interstitial lung disease with a reduced DLCO of 49%, with an echocardiogram with no changes in chamber sizes and essentially normal RVSP by Doppler, arguing against pulmonary arterial hypertension. In addition, some of her inflammatory markers of disease activity appear to be elevated, she is on monotherapy with azathioprine. As part of the investigations, incidentally moderate calcifications in the coronary arteries were noted. Past Medical History: as summarized in the HPI ROS: 10 point-review of systems performed and negative except as stated in HPI Vitals and physical examination: BP 127/72 Comment: error Pulse 77 Ht 161.6 cm Wt 105 kg BMI40.09 kg/m?? Neck: no JVD, preserved carotid pulses, no bruits Cardiovascular: regular rhythm, normal S1, normal S2, no clinically significant murmurs Pulmonary: Clear lungs, no rales, no wheezing, no rhonchi Lab data and workup: NT proBNP of 126, C3 and C4 decrease, NT proBNP 126, CRP 3.8, ESR 108, total cholesterol 126, HDL of 36 and triglycerides of 239, consistent with metabolic syndrome, but LDL of 42.She is not on statin therapy. Moderate calcifications as previously noted. Transthoracic echocardiogram as previously discussed, ECG normal sinus rhythm no ischemic changes, normal 6 minute walk test with no evidence of desaturation. Impression/Report and Plan: #1 Progressive dyspnea on exertion # 2 Concerns for secondary interstitial lung disease # 3 SLE with disease activity #4 Moderate coronary artery calcifications #5 Essential hypertension, at goal on therapy Appreciate the opportunity to meet Vee and assist in her complex presentation. I provided her with reassurance about the appearance of her echocardiogram in particular we do not see any evidence to suggest pulmonary arterial hypertension. Nevertheless, in the context of exertional dyspnea, with existing moderate calcifications, the question is if there could be an additional element of exercise induced ischemia; therefore, I suggested the possibility of obtaining an exercise stress nuclear perfusion scan with oxygen consumption. The patient agreed. Regardless, the presence of moderate coronary calcifications at her young age are indicative of premature coronary artery disease, she has a very strong family history, and therefore secondary preventive strategies, from a medication standpoint are in order. She would be eligible to 81 mg of aspirin daily, non enteric coated, platelets are satisfactory above 120. In addition, and despite the paradoxical low LDL, her systemic inflammatory disease almost invariably has affected also the endothelium, and therefore, there would be a role for statin therapy, ideallywith an agent that avoids hepatic metabolism. Pravastatin would be the choice, at a starting dose of40 mg daily. The patient agrees. From additional questions on the consult comments initially, I do not think that there is a need forbubble study, as we have not documented exercise induced hypoxemia and therefore we are not looking for shunt, and there wouldn't be a need for an exercise hemodynamic study, since she only exhibits isolated dyspnea on exertion without any correlates of clinical heart failure. Specific suggestions/Recommendations 1. Exercise stress nuclear perfusion scan with VO2, I will contact patient with results 2. Aspirin 81 mg daily, non enteric coated 3. Pravastatin 40 mg daily (no hepatic metabolism) 4. She will likely need ongoing longitudinal follow-up with rheumatology and pulmonary medicine, 1stfor additional workup that has been proposed (eg. Need for bronchoscopy and BAL to rule out infection/hemorrhage), and to modify her anti-inflammatory treatment. Thank you for your consult. Please display page [phone] if further questions or query, or send an Yapert message. ICATION DEVELOPMENT LIAISON documented in this encounter Plan of Treatment Upcoming Encounters Date Type Specialty Care Team Description 07/08/2022 Appointment Laboratory Medicine Pedro Donnelly, COSMETIC SALES, C.N.P. [address] [place] [phone] (Wo rk) 07/08/2022 Office Visit Gastroenterology and Collin Trivedi Hepatology Chloe [address] [place] [phone] (Wo rk) documented as of this encounter Results NM Cardiac Perfusion Rest and Stress SPECT (09/14/2019 1:30 PM APPLICATION DEVELOPMENT LIAISON) Specimen (Source) Anatomical Collection Method Collection Time Re ceived Time Location / / Volume Laterality 09/14/2019 12:31 PM APPLICATION DEVELOPMENT LIAISON Narrative [facility] CV MERGE - 09/14/2019 1:56 PM APPLICATION DEVELOPMENT LIAISON This result has an attachment that is no t available. See PDF For Result Procedure Note Eladio Mcmillan M.D. - 09/14/2019Format ting of this note might be different from the original. See PDF For Result Gaudencio Bhakta M.D. IMG NM PROCEDURES Performing Organization Address City/State/ZIP Code Phon e Number CV MERGE CV MERGE NA documented in this encounter Visit Diagnoses Diagnosis Dyspnea On Exertion - Primary Lupus Systemic Erythematosus (HCC) Pain Chest Coronary Artery Disease Without Angina P ectoris Family History Coronary Artery Disease Cirrhosis Nonalcoholic (HCC) Hepatitis Autoimmune (HCC) Dyspnea On Exertion Pain Chest documented in this encounter
--- OUTSIDE RECORDS SUMMARY | 2022-05-22 16:06 | XMS_ITS | Encounter Summary ---
:1965 Author Organization [facility] Address [address] [place] [address] Care Team Providers Name Role Phone Unavailable Primary Care Provider Unavailable Encounter Details Date Type Department Care Team Description 06/21/2019 Ancillary Procedure Department of Vascular Social History Tobacco Use Types Packs/Day Years [...] How often do you attend advent or pentecostalism services? Never 09/23/2021 Do you [...] Description 07/08/2022 Appointment Laboratory Medicine Pedro Donnelly, SOFTWARE TEST TECHNICIAN, C.N.P. [address] [place] [address] (Wo rk) 07/08/2022 Office Visit Gastroenterology and Collin Trivedi Hepatology Chloe [address] [place] [phone] (Wo rk) documented as of this encounter Procedures Procedure Name Priority Date/Time Associated Diagnosis Comme nts VASCULAR IMAGE EXAM Routine 06/21/2019 12:55 PM R esults for this CDT procedure are i n the results section. documented in this encounter Results Lower Arterial-Vascular Image Exam (06/21/2019 12:55 PM CDT) Specimen (Source) Anatomical Collection Method Collection Time Re ceived Time Location / / Volume Laterality 06/21/2019 12:55 PM CDT Narrative [facility] - 06/21/2019 1:56 PM CDT This order has been created and [...]
--- OUTSIDE RECORDS SUMMARY | 2022-05-22 16:06 | XMS_ITS | Encounter Summary ---
:1965 Author Organization [facility] Address [address] [place] [address] Care Team Providers Name Role Phone Unavailable Primary Care Provider Unavailable Reason for Visit Outpatient (Routine) - Closed Specialty Diagnoses / Procedures Referred By Contact Refer red To Contact Diagnoses Dyspnea On Exertion Pain Chest Gaudencio Gilmore [facility] Procedures NM Cardiac Perfusion Rest and Stress SPECT Chloe [address] [place] [address] Referral ID Status Reason Start Date Expiration Date Visits Requ ested Visits Authorized [id number] Closed 09/14/2019 09/13/2020 6 6 Encounter Details Date Type Department Care Team Description 09/14/2019 Hospital Encounter Department of Sudheer Bhakta Cardiovascular Diseases in Gaudencio Fabian M.D. [place], [place] [address] [place] [address] [address] [place] [address] [phone] Social History Tobacco Use Types Packs/Day Years [...] How often do you attend tenriism or confucianist services? Never 09/23/2021 Do you belong to [...] Description 07/08/2022 Appointment Laboratory Medicine Pedro Donnelly, VIRTUAL CLASSROOM MANAGER, C.N.P. [address] [place] [address] (Wo rk) 07/08/2022 Office Visit Gastroenterology and Collin Trivedi, Hepatology Chloe [address] [place] [address] (Wo rk) documented as of this encounter Procedures Procedure Name Priority Date/Time Associated Comments Diagnosis NM CARDIAC RAD - Routine 09/14/2019 1:30 Dyspnea On Results for this PERFUSION REST (most inpatients PM BODY MAKE UP ARTIST Exertion procedure are in AND STRESS SPECT and all Pain Chest the results outpatients) section. documented in this encounter Results NM Cardiac Perfusion Rest and Stress SPECT (09/14/2019 1:30 PM BODY MAKE UP ARTIST) Specimen (Source) Anatomical Collection Method Collection Time Re ceived Time Location / / Volume Laterality 09/14/2019 12:31 PM BODY MAKE UP ARTIST Narrative [facility] CV MERGE - 09/14/2019 1:56 PM BODY MAKE UP ARTIST This result has an attachment that is [...]
--- OUTSIDE RECORDS SUMMARY | 2022-05-22 16:06 | XMS_ITS | Encounter Summary ---
:1965 Author Organization [facility] [place] [facility] Address [address] [place] [address] Care Team Providers Name Role Phone Unavailable Primary Care Provider Unavailable Reason for Referral MRI/CAT/PET Scan (Routine) - Modified Order Specialty Diagnoses / Procedures Referred By Contact Refer red To Contact Radiology Diagnoses Lupus Erythematosus Shortness Of Breath Morris Rico M.D. [facility] Procedures CT Chest without IV Contrast CT Chest without and with IV Contrast [address] [place] [phone] Referral ID Status Reason Start Date Expiration Date Visits V isits Requested Authorized [id number] Modified 08/18/2019 08/17/2020 1 1 Order TIENT NURSING AIDE Reason for Visit Outpatient (Routine) - Closed Specialty Diagnoses / Procedures Referred By Contact Refer red To Contact Pulmonary Medicine Diagnoses Lupus Erythematosus Landon Bal M.D. [facility] 200 [place] [address] Referral ID Status Reason Start Date Expiration Date Visits V isits Requested Authorized [id number] Closed Specialty 06/21/2019 06/20/2020 1 1 Services Required Encounter Details Date Type Department Care Team Description 08/18/2019 Comprehensive Visit Division of Morris Rico Shortne ss Of [place] (Primary Dx); Pulmonary Medicine Chloe Lupus Erythematosus in [address] [place] [phone] [place], [place] [phone] (Work) [phone] Social History Tobacco Use Types Packs/Day Years [...] er 09/23/2021 How often do you attend restorationist or tenriism services? Never 09/23/2021 Do you belong to any clubs or organizations such as No 09/23/2021 restorationist groups, unions, fraternal or athletic groups, or [...] Sign Reading Time Taken Comments Blood Pressure 122/59 08/18/2019 10:06 AM INPATIENT NURSING AIDE Pulse 96 08/18/2019 10:06 AM INPATIENT NURSING AIDE Temperature 36.6 ??C (97.9 ??F) 08/18/2019 10:06 AM INPATIENT NURSING AIDE Respiratory Rate - - Oxygen Saturation 97% 08/18/2019 10:06 AM INPATIENT NURSING AIDE Inhaled Oxygen Concentration - - Weight 104 kg (230 lb 6.1 oz) 08/18/2019 10:06 AM INPATIENT NURSING AIDE Height 162.2 cm (5' 3.86) 08/18/2019 10:06 AM INPATIENT NURSING AIDE Body Mass Index 39.72 08/18/2019 10:06 AM INPATIENT NURSING AIDE documented in this encounter Consult Notes Morris Rico M.D. - 08/18/2019 10:00 AM CST SUBJECTIVE REFERRAL SOURCE Landon Bal M.D. REASON FOR CONSULT Dyspnea. HISTORY OF PRESENT ILLNESS It is my pleasure to see Mrs. Danielson today. She is a 54-year-old woman with dyspnea of approximately 8 months' duration. The history is provided by Mrs. Danielson, and supplemented by her sister. Mrs. Danielson quit smoking about a year ago, after 33 years, times an average of a pack per day. She has no pulmonary history of problems prior to this year. She noted the gradual onset of dyspnea approximately 8 months ago, and this has been progressive. When she thinks back, she thinks she has even gotten worse over the past couple of months, since her CT scan of the chest was performed. She now has dyspnea walking just a few steps, in incline, and she needs to stop on a flat surface. She has no hemoptysis, wheeze, fevers, sweats, or chills. There is no orthopnea or paroxysmal nocturnal dyspnea. She has some chronic lower extremity edema, since she was . Her background medical history is most notable for systemic lupus erythematosus. She also has autoimmune hepatitis. She is currently maintained on azathioprine 150 mg per day. She did have a sleep study about 2 years ago, elsewhere, and that was said to be negative for obstructive sleep apnea. She had an overnight oximetry scheduled this visit, but she canceled that because she works tomorrow and did not think she could return it. 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 She describes mowing and raking leaves, and pitching and moving hay. She does have a cat at home. There are no birds in the home, or feather products. She has no hot tub. There is no wetness in the basement, and no visi ble mold in the house. She does not have a humidifier. The following portions of the patient's history were reviewed and updated as appropriate: allergies,current medication, family history, medical history, surgical history, social history, problem list. OBJECTIVE PHYSICAL EXAMINATION General: Very pleasant woman, in no acute distress. ENT: Negative. Nodes: No supraclavicular or cervical adenopathy. Chest: Notable for some mild crackles in both lung bases. Heart: No murmur or gallop. The second heart sound does seem a little accentuated. Abdomen: Protuberant due to excess weight. No hepatosplenomegaly, mass, or tenderness. Extremities: No cyanosis, clubbing, or edema. Gait: Normal. Neuro: Alert and oriented x3. DIAGNOSTICS I reviewed pulmonary function testing from 04/04/2019, which demonstrates normal spirometry but a reduced diffusing capacity of 49% predicted. The chest CT dated 06/21/2019, demonstrates predominantly a ground glass abnormality bilaterally which is paramedian and along the bronchovascular bundles. It is not particularly prominent elsewhere. This is not a typical picture of NSIP. It does suggest an inflammatory/infectious problem, or perhaps hemorrhage. I am concerned that this may not be infection or hemorrhage, since her dyspnea has actually gotten worse since the CT was performed. Importantly, despite her smoking history, the CT does notdemonstrate obvious emphysematous change and the spirometry does not suggest COPD. I also reviewed the echocardiogram done this morning, which does not suggest pulmonary hypertension. The reduced diffusing capacity is of concern, and I think is explained by the interstitial changes. I am concerned that may be worse now. In the setting of SLE, this may be a pulmonary manifestation. Ithink it is reasonable to obtain a followup CT scan now, and followup pulmonary function testing to get an understanding of the evolution of these abnormalities. If things are worse, than we may need further testing, which might include bronchoscopy and BAL to rule out hemorrhage and infection, and then potentially subsequent change in her immune suppression program. This was discussed in detail. ASSESSMENT / PLAN #1 Systemic lupus erythematosus #2 Autoimmune hepatitis #3 Interstitial lung disease MARGIN CODE: New 4. Morris Rico M.D. CT CT Job ID: [id number] TIENT NURSING AIDE documented in this encounter Plan of Treatment Upcoming Encounters Date Type Specialty Care Team Description 07/08/2022 Appointment Laboratory Medicine Pedro Donnelly APRN, C.N.P. [address] [place] [phone] (Claudia rk) 07/08/2022 Office Visit Gastroenterology and Collin Trivedi, Hepatology MAyala [address] [place] [phone] (Claudia rk) documented as of this encounter Results CT Chest without IV Contrast (08/18/2019 5:13 PM INPATIENT NURSING AIDE) Anatomical Region Laterality Modality Chest, Thoracic RST LOS, Thoracic ARZ N/A Co mputed Tomography, Computed LOS, Thoracic FLA LOS Tomography Specimen (Source) Anatomical Collection Method Collection Time Re ceived Time Location / / Volume Laterality 08/18/2019 7:07 PM INPATIENT NURSING AIDE Impressions 08/18/2019 7:23 PM INPATIENT NURSING AIDE Previously described pulmonary abnormality is similar when compared with the exam of 06/21/2019 and may reflect conne ctive tissue disease associated interstitial lung disease and/or sequela of pulmonary hemorrhage. Narrative 08/18/2019 7:23 PM INPATIENT NURSING AIDE EXAM: CT CHEST WITHOUT IV CONTRAST No [...] disease and/or sequela of pulmonary hemorrhage. Morris Rico M.D. IMNomi CT PROCEDURES Pulmonary Function Tests (08/18/2019 1:14 PM INPATIENT NURSING AIDE) athologist Signature VC MAX POST 3.15 L 08/18/2019 [facility] 4:59 PM INPATIENT NURSING AIDE SUITE PostFVC 3.15 L 08/18/2019 [facility] 4:59 PM INPATIENT NURSING AIDE SUITE PostFEV1 2.54 L 08/18/2019 [facility] 4:59 PM INPATIENT NURSING AIDE SUITE FEV1/FVC POST 80.87 % 08/18/2019 [facility] 4:59 PM INPATIENT NURSING AIDE SUITE FEF 25-75 % 2.66 L/s 08/18/2019 [facility] POST 4:59 PM INPATIENT NURSING AIDE SUITE PEF POST 6.82 L/s 08/18/2019 [facility] 4:59 PM INPATIENT NURSING AIDE SUITE FET POST 8.33 sec 08/18/2019 [facility] 4:59 PM INPATIENT NURSING AIDE SUITE DLCO SINGLE 12.53 ml/(min*mm 08/18/2019 [facility] BREATH POST Hg) 4:59 PM INPATIENT NURSING AIDE SUITE VA SINGLE 4.36 L 08/18/2019 [facility] BREATH POST 4:59 PM INPATIENT NURSING AIDE SUITE C8PmiPfws 99.00 % 08/18/2019 [facility] 4:59 PM INPATIENT NURSING AIDE SUITE PulseRest 88.00 1/min 08/18/2019 [facility] 4:59 PM INPATIENT NURSING AIDE SUITE [id number] 98.00 % 08/18/2019 [facility] 4:59 PM INPATIENT NURSING AIDE SUITE PulseExer 138.00 1/min 08/18/2019 [facility] 4:59 PM INPATIENT NURSING AIDE SUITE EXER TIME 1.00 min 08/18/2019 [facility] 4:59 PM INPATIENT NURSING AIDE SUITE STEP HEIGHT 9.00 Inch 08/18/2019 [facility] PRE 4:59 PM INPATIENT NURSING AIDE SUITE VC MAX PRE 3.19 L 08/18/2019 [facility] 4:59 PM INPATIENT NURSING AIDE SUITE FVC 3.19 L 08/18/2019 [facility] 4:59 PM INPATIENT NURSING AIDE SUITE FEV1 2.59 L 08/18/2019 [facility] 4:59 PM INPATIENT NURSING AIDE SUITE FEV1/FVC 81.16 % 08/18/2019 [facility] 4:59 PM INPATIENT NURSING AIDE SUITE NQR85-83% 2.79 L/s 08/18/2019 [facility] 4:59 PM INPATIENT NURSING AIDE SUITE PEF PRE 6.63 L/s 08/18/2019 [facility] 4:59 PM INPATIENT NURSING AIDE SUITE FET PRE 8.33 sec 08/18/2019 [facility] 4:59 PM INPATIENT NURSING AIDE SUITE MVV 98.22 L/min 08/18/2019 [facility] 4:59 PM INPATIENT NURSING AIDE SUITE SUBSTANCE POST NaN 08/18/2019 [facility] 4:59 PM INPATIENT NURSING AIDE SUITE DOSE POST NaN 08/18/2019 [facility] 4:59 PM INPATIENT NURSING AIDE SUITE % PRED VC MAX 96.13 % 08/18/2019 [facility] 4:59 PM INPATIENT NURSING AIDE SUITE FVC% 96.13 % 08/18/2019 [facility] 4:59 PM INPATIENT NURSING AIDE SUITE FEV1% 98.23 % 08/18/2019 [facility] 4:59 PM INPATIENT NURSING AIDE SUITE % PRED 101.58 % 08/18/2019 [facility] FEV1/FVC 4:59 PM INPATIENT NURSING AIDE SUITE % PRED FEF 111.81 % 08/18/2019 [facility] 25-75% 4:59 PM INPATIENT NURSING AIDE SUITE % PRED PEF 113.12 % 08/18/2019 [facility] 4:59 PM INPATIENT NURSING AIDE SUITE PRED VC MAX 3.32 L 08/18/2019 [facility] 4:59 PM INPATIENT NURSING AIDE SUITE PRED FVC 3.32 L 08/18/2019 [facility] 4:59 PM INPATIENT NURSING AIDE SUITE PRED FEV 1 2.64 L 08/18/2019 [facility] 4:59 PM INPATIENT NURSING AIDE SUITE PRED FEV1/FVC 79.90 % 08/18/2019 [facility] 4:59 PM INPATIENT NURSING AIDE SUITE PRED FEF 2.49 L/s 08/18/2019 [facility] 25-75% 4:59 PM INPATIENT NURSING AIDE SUITE PRED PEF 5.86 L/s 08/18/2019 [facility] PM INPATIENT NURSING AIDE SUITE Specimen (Source) Anatomical Collection Method Collection Time Re ceived Time Location / / Volume Laterality 08/18/2019 1:14 PM INPATIENT NURSING AIDE Narrative This result has an attachment that is no t available. Morris Rico M.D. PFT ORDERABLES Performing Organization Address City/State/ZIP Code Phon e Number [facility] SUITE [facility] SUITE NA documented in this encounter Visit Diagnoses Diagnosis Shortness Of Breath - Primary Lupus Erythematosus Lupus Erythematosus Shortness Of Breath documented in this encounter
--- OUTSIDE RECORDS SUMMARY | 2022-05-22 16:06 | XMS_ITS | Encounter Summary ---
:1965 Author Organization [facility] Address [address] [place] [address] Care Team Providers Name Role Phone Unavailable Primary Care Provider Unavailable Reason for Visit Reason Onset Date Comments Previsit Preparation 08/22/2019 Encounter Details Date Type Department Care Team Description 08/22/2019 Clinical Department of Sudheer Previsit Communication Cardiovascular Yony, [facility] Medicine in [place], Gaudencio Fabian M.D. [address] [place] [phone] Social History Tobacco Use Types Packs/Day Years [...] How often do you attend sikh or jehovah's witness services? Never 09/23/2021 Do [...] encounter Miscellaneous Notes Telephone Encounter - Vesna Green - 08/24/2019 10:32 AM CST October is the next available for PH clinic SURVEYOR Telephone Encounter - Tatyana Galeana R.N. - 08/22/2019 2:42 PM CST Brief record review prior to [facility] appointment with: Dr. Beebe on 09/14/19. Patient coming to cardiology appointment for: Dyspnea, coronary calcifications on CT, ?need for stress ? Bubble study to look for patent pulmonary syndrome ? Exercise hemodynamic study to r/o HFpEF Tests previously ordered/completed: 08/18/19 -ECG: NSR -Echo: EF 70%, no RWMA, normal cardiac valves, normal LV diastolic function, normal RV size/systolicfunction, RVSP 30, normal IVC size with normal inspiratory collapse -Arterial scan: -6' walk: O2 WNL -PFTs: Abnormal. Diffusing capacity is moderately reduced--consistent with a pulmonary parenchymal or vascular abnormality or anemia. Normal spirometry. -CT Chest: pulmonary abnormality may reflect connective tissue disease associated with interstitial lung disease and/or sequela of pulmonary hemorrhage. Moderate coronary artery calcification. Cardiac History: Pertinent Medical History: HTN Interstitial lung disease SLE, ?pulmonary involvement Cirrhosis, nonalcoholic SURVEYOR documented in this encounter Plan of Treatment Upcoming Encounters Date Type Specialty Care Team Description 07/08/2022 Appointment Laboratory Medicine Pedro Donnelly, ANTHONY, C.N.P. [address] [place] [phone] (Wo rk) 07/08/2022 Office Visit Gastroenterology and Collin Trivedi Hepatology Chloe [address] [place] [phone] (Wo rk) documented as of this encounter Visit Diagnoses Not on filedocumented in this encounter
--- OUTSIDE RECORDS SUMMARY | 2022-05-22 16:06 | XMS_ITS | Encounter Summary ---
:1965 Author Organization [facility] Address [address] [place] [address] Care Team Providers Name Role Phone Unavailable Primary Care Provider Unavailable Encounter Details Date Type Department Care Team Description 08/22/2019 Orders Only Division of Rheumatology Landon Bal, Dyspnea (Primary Dx) in [facility] [place] [address] [place] [address] Social History Tobacco Use Types Packs/Day [...] How often do you attend catholic or congregational services? Never 09/23/2021 Do you [...] Description 07/08/2022 Appointment Laboratory Medicine Pedro Donnelly, SHELTER CASE MANAGER, C.N.P. [address] [place] [phone] (Claudia vera) 07/08/2022 Office Visit Gastroenterology and Collin Trivedi, Hepatology M.DSarina [address] [place] [phone] (Claudia vera) documented as of this encounter Visit Diagnoses Diagnosis Dyspnea - Primary documented in this encounter
--- OUTSIDE RECORDS SUMMARY | 2022-05-22 16:06 | XMS_ITS | Encounter Summary ---
:1965 Author Organization [facility] Address [address] [place] [address] Care Team Providers Name Role Phone Unavailable Primary Care Provider Unavailable Encounter Details Date Type Department Care Team Description 08/18/2019 Orders Only Division of Pulmonary Colleen Vu Medicine in [place], [facility] [address] [place], [place] [address] [facility] [address] [place] [address] [phone] Social History Tobacco Use Types Packs/Day Years [...] How often do you attend mormon or congregational services? Never 09/23/2021 Do you [...] Description 07/08/2022 Appointment Laboratory Medicine Pedro Donnelly, HEALTH AND WELLNESS DIRECTOR, C.N.P. [address] [place] [phone] (Claudia rk) 07/08/2022 Office Visit Gastroenterology and Collin Trivedi, Hepatology MAyala [address] [place] [address] (Wo rk) documented as of this encounter Visit Diagnoses Not on filedocumented in this encounter
--- OUTSIDE RECORDS SUMMARY | 2022-05-22 16:07 | XMS_ITS | Encounter Summary ---
:[address] [facility] Address [address] [place] [address] Care Team Providers Name Role Phone Unavailable Primary Care Provider Unavailable Encounter Details Date Type Department Care Team Description 04/22/2019 Orders Only Division of Rheumatology in Pedro Donnelly APRNEast [place], [place] C.N.P. [address] [facility] [address] [place], [place] [address] [place], [place] [phone] (Wo rk) Social History Tobacco Use Types Packs/Day Years Used Date Smoking Tobacco: Former Cigarettes 0.8 22 Star abelardo: 09/07/1986 Smokeless Tobacco: Former Alcohol Use Standard Drinks/Week Comments No 0 [...] How often do you attend cheondoism or catholic services? Never 09/23/2021 Do you [...] the highest level of school you have GED or equivale nt 03/06/2019 completed or the highest degree you have received? Sex Assigned at Date Recorded Female 03/09/2018 3:30 PM CDT documented as of this encounter Plan of Treatment Upcoming Encounters Date Type Specialty Care Team Description 07/08/2022 Appointment Laboratory Medicine Pedro Donnelly, POCKET ASSEMBLER, C.N.P. [address] [place] [address] (Wo rk) 07/08/2022 Office Visit Gastroenterology and Collin Trivedi, Hepatology MAyala [address] [place] [address] (Wo rk) documented as of this encounter Visit Diagnoses Not on filedocumented in this encounter
--- OUTSIDE RECORDS SUMMARY | 2022-05-22 16:07 | XMS_ITS | Encounter Summary ---
:1965 Author Organization [facility] Address [address] [place] [address] Care Team Providers Name Role Phone Unavailable Primary Care Provider Unavailable Encounter Details Date Type Department Care Team Description 04/04/2019 Diagnostic Division of Pulmonary Pedro Donnelly Sh ortness Of Breath; Medicine in [place], TUBE MAKER, C.N .P. Nicotine Dependence Unspecified In [facility] [address] [facility] [address] [place] [phone] Social History Tobacco Use Types Packs/Day Years [...] often do you attend latter day or worship services? Never 09/23/2021 Do you [...] documented as of this encounter Miscellaneous Notes Result Encounter Note - Pedro Donnelly APRN, C.N.P. - 04/04/2019 8:00 AM CDT Testing reviewed and is noted to be abnormal, diffusing lung capacity 49. Message was sent to patient for possible pulmonary medicine consult. documented in this encounter Plan of Treatment Upcoming Encounters Date Type Specialty Care Team Description 07/08/2022 Appointment Laboratory Medicine Pedro Donnelly APRN, C.N.P. [address] [place] [phone] (Claudia rk) 07/08/2022 Office Visit Gastroenterology and Collin Trivedi Hepatology Chloe [address] [place] [address] (Claudia rk) documented as of this encounter Procedures Procedure Name Priority Date/Time Associated Diagnosis Comme nts PULMONARY FUNCTION Routine 04/04/2019 7:39 AM Shortness Of Breath Results for this TESTS CDT Nicotine Dependence procedur e are in Unspecified In the results Remission section. documented in this encounter Results Pulmonary Function Tests (04/04/2019 7:39 AM CDT) athologist Signature VC MAX POST 3.23 L 04/04/2019 [facility] 10:21 AM CDT SUITE PostFVC 3.22 L 04/04/2019 [facility] 10:21 AM CDT SUITE PostFEV1 2.64 L 04/04/2019 [facility] 10:21 AM CDT SUITE FEV1/FVC POST 81.86 % 04/04/2019 [facility] 10:21 AM CDT SUITE FEF 25-75 % 2.88 L/s 04/04/2019 [facility] POST 10:21 AM CDT SUITE PEF POST 6.61 L/s 04/04/2019 [facility] 10:21 AM CDT SUITE FET POST 6.01 sec 04/04/2019 [facility] 10:21 AM CDT SUITE DLCO SINGLE 10.93 ml/(min*mm 04/04/2019 [facility] BREATH POST Hg) 10:21 AM CDT SUITE DLCOC SINGLE 12.34 ml/(min*mm 04/04/2019 [facility] BREATH POST Hg) 10:21 AM CDT SUITE HB 10.20 g(Hb)/dL 04/04/2019 [facility] 10:21 AM CDT SU[address] VA SINGLE 4.71 L 04/04/2019 [facility] BREATH POST 10:21 AM CDT SUITE [id number] 100.00 % 04/04/2019 [facility] 10:21 AM CDT SUITE PulseRest 79.00 1/min 04/04/2019 [facility] 10:21 AM CDT SUITE [id number] 98.00 % 04/04/2019 [facility] 10:21 AM CDT SUITE PulseExer 128.00 1/min 04/04/2019 [facility] 10:21 AM CDT SUITE EXER TIME 1.80 min 04/04/2019 [facility] 10:21 AM CDT SUITE STEP HEIGHT 9.00 Inch 04/04/2019 [facility] PRE 10:21 AM CDT SUITE MIP POST 51.87 cmH2O 04/04/2019 [facility] 10:21 AM CDT SUITE MEP POST 53.03 cmH2O 04/04/2019 [facility] 10:21 AM CDT SUITE VC MAX PRE 3.25 L 04/04/2019 [facility] 10:21 AM CDT SUITE FVC 3.21 L 04/04/2019 [facility] 10:21 AM CDT SUITE FEV1 2.54 L 04/04/2019 [facility] 10:21 AM CDT SUITE FEV1/FVC 79.05 % 04/04/2019 [facility] 10:21 AM CDT SUITE GQE28-72% 2.35 L/s 04/04/2019 [facility] 10:21 AM CDT SUITE PEF PRE 7.43 L/s 04/04/2019 [facility] 10:21 AM CDT SUITE FET PRE 8.47 sec 04/04/2019 [facility] 10:21 AM CDT SUITE MVV 108.56 L/min 04/04/2019 [facility] 10:21 AM CDT SUITE SUBSTANCE POST NaN 04/04/2019 [facility] 10:21 AM CDT SUITE DOSE POST NaN 04/04/2019 [facility] 10:21 AM CDT SUITE % PRED VC MAX 97.92 % 04/04/2019 [facility] 10:21 AM CDT SUITE FVC% 96.63 % 04/04/2019 [facility] 10:21 AM CDT SUITE FEV1% 96.11 % 04/04/2019 [facility] 10:21 AM CDT SUITE % PRED 98.87 % 04/04/2019 [facility] FEV1/FVC 10:21 AM CDT SUITE % PRED FEF 93.55 % 04/04/2019 [facility] 25-75% 10:21 AM CDT SUITE % PRED PEF 126.57 % 04/04/2019 [facility] 10:21 AM CDT SUITE PRED VC MAX 3.32 L 04/04/2019 [facility] 10:21 AM CDT SUITE PRED FVC 3.32 L 04/04/2019 [facility] 10:21 AM CDT SUITE PRED FEV 1 2.64 L 04/04/2019 [facility] 10:21 AM CDT SUITE PRED FEV1/FVC 79.95 % 04/04/2019 [facility] 10:21 AM CDT SUITE PRED FEF 2.51 L/s 04/04/2019 [facility] 25-75% 10:21 AM CDT SUITE PRED PEF 5.87 L/s 04/04/2019 [facility] 10:21 AM CDT SUITE Specimen (Source) Anatomical Collection Method Collection Time Re ceived Time Location / / Volume Laterality 04/04/2019 7:39 AM CDT Narrative This result has an attachment that is no t available. Pedro Donnelly APRN, C.N.P. PFT ORDERABLES Performing Organization Address City/State/ZIP Code Phon e Number [facility] [address] [facility] [address] documented in this encounter Visit Diagnoses Diagnosis Shortness Of Breath Nicotine Dependence Unspecified In [place] [facility] documented in this encounter
--- OUTSIDE RECORDS SUMMARY | 2022-05-22 16:07 | XMS_ITS | Encounter Summary ---
:1965 Author Organization [facility] Address [address] [place] [address] Care Team Providers Name Role Phone Unavailable Primary Care Provider Unavailable Encounter Details Date Type Department Care Team Description 06/21/2019 Hospital Encounter Department of Pedro Donnelly S ystemic Erythematosus (HCC); Laboratory Medicine R, OFFICE ASSOCIATE, C.N .P. Hepatitis Autoimmune (HCC); and Pathology, [address] [place] [address] Shortness Of Breath [place] [phone] [place] [phone] [place] [address] (Work) [place], [place] [phone] (Fax) [phone] Social History Tobacco Use Types Packs/Day Years [...] How often do you attend baptism or holiness services? Never 09/23/2021 Do you [...] to pay for the very basics like [employer] hat hard 09/23/2021 food, housing, medical care, [...] tablet MOUTH EVERY DAY omeprazole (PriLOSEC) 40 Take 1 capsule (40 90 capsule 3 06/29/[address] capsule mg total) by mouth daily. documented as of this encounter Plan of Treatment Upcoming Encounters Date Type Specialty Care Team Description 07/08/2022 Appointment Laboratory Medicine Pedro Donnelly, OFFICE ASSOCIATE, C.N.P. [address] [place] [phone] (Claudia vera) 07/08/2022 Office Visit Gastroenterology and Collin Trivedi Hepatology Chloe [address] [place] [phone] (Claudia vera) documented as of this encounter Procedures Procedure Name Priority Date/Time Associated Diagnosis Comme nts MICROSCOPIC Routine 06/21/2019 8:42 AM Results f or this AUTOMATED CDT procedure are i n the results section. URINALYSIS WITH Routine 06/21/2019 8:42 AM Lupus Systemic Resu lts for this MICROSCOPIC CDT Erythematosus (H CC) procedure are in Hepatitis Autoimmune the res ults (HCC) section. Shortness Of Breath documented in this encounter Results (ABNORMAL) Microscopic Automated (06/21/2019 8:42 AM CDT) athologist Signature Microscopy Abnormal 06/21/2019 [facility] 9:33 AM CDT WBC 11-20 (A) /hpf 06/21/2019 [facility] 9:33 AM CDT Comment: ----REFERENCE VALUE---- 1-3 ??(Males) 1-10 (Females) Casts, Hyaline 1-3 /lpf 06/21/2019 9:33 AM CDT RE NA Squamous Epithelial Cells, U 1-3 /hpf 06/21/2019 9:33 AM CDT [facility] Bacteria Present (A) 06/21/2019 9:33 AM CDT [facility] Specimen Anatomical Collection Method Collection Time Receive d Time (Source) Location / / Volume Laterality Urine 06/21/2019 8:42 AM 9 8:42 CDT AM CDT Pedro Donnelly APRN, C.N.P. LAB URINE ORDERABLES Performing Organization Address City/State/ZIP Code Phon e Number [facility] - 200 [place], [place] [address] [facility] [place] [address] [facility] [address] Urinalysis with Microscopic: Urine, Voided (06/21/2019 8:42 AM CDT) athologist Signature Source Void 06/21/2019 [facility] 8:42 AM CDT Appearance Normal Normal 06/21/2019 [facility] 9:13 AM CDT Osmolality, U 583 150 - 1150 06/21/2019 [facility] mOsm/kg 9:44 AM CDT pH, U 5.2 4.5 - 8.0 06/21/2019 [facility] 9:44 AM CDT Comment: ----ADDITIONAL INFORMATION---- This test was developed and its performa nce characteristics determined by [facility] in a manner co nsistent with CLIA requirements. This test has not bee n cleared or approved by the U.S. Food and Drug Admin istration. Glucose 4 0 - 15 mg/dL 06/21/2019 9:13 AM CDT [facility] Protein, U 19 <26 mg/dL 06/21/2019 9:13 AM CDT [facility] Comment: ----ADDITIONAL INFORMATION---- On 03/03/2017 the total protein assay me thod changed resulting in approximately a 15% increase in prote in values. Protein/Osmolality 0.33 <0.42 Ratio 06/21/2019 9:44 AM CDT [facility] Comment: ----ADDITIONAL INFORMATION---- On 03/03/2017 the total protein assay me thod changed resulting in approximately a 15% increase in prote in values. Predicted 24 Hr Protein 242 mg/24 h 06/21/2019 9:44 AM CDT [facility] Predicted Range 60-979 mg/24 h 06/21/2019 9:44 AM CDT R LAURENT Hemoglobin, QL Negative Negative 06/21/2019 9:33 AM CDT RE NA Specimen Anatomical Collection Method Collection Time Receive d Time (Source) Location / / Volume Laterality Urine (Urine, 06/21/2019 8:42 AM 06/21/20 19 8:42 Voided) CDT AM CDT Pedro Donnelly APRN, C.N.P. LAB URINE ORDERABLES Performing Organization Address City/State/ZIP Code Phon e Number [facility] - [address] [place], [place] [address] [place] [address] [facility] [address] documented in this encounter Visit Diagnoses Diagnosis Lupus Systemic Erythematosus (HCC) Hepatitis Autoimmune (HCC) Shortness Of Breath documented in this encounter
--- OUTSIDE RECORDS SUMMARY | 2022-05-22 16:07 | XMS_ITS | Encounter Summary ---
:[address] [facility] Address [address] [place] [address] Care Team Providers Name Role Phone Unavailable Primary Care Provider Unavailable Reason for Referral Outpatient (Routine) - Closed Specialty Diagnoses / Procedures Referred By Contact Refer red To Contact Diagnoses Lupus Systemic Erythematosus (HCC) Hepatitis Autoimmune (HCC) Shortness Of Breath Pedro Donnelly APRN, [facility] Procedures Arterial Health Screen C.N.P. [address] [place] [address] [phone] Referral ID Status Reason Start Date Expiration Date Visits Requ ested Visits Authorized [id number] Closed 03/11/2019 03/10/2020 1 1 Reason for Visit Outpatient (Routine) - Closed Specialty Diagnoses / Procedures Referred By Contact Refer red To Contact Diagnoses Lupus Systemic Erythematosus (HCC) Hepatitis Autoimmune (HCC) Shortness Of Breath Pedro Donnelly APRN, [facility] Procedures Arterial Health Screen C.N.P. [address] [place] [address] [phone] Referral ID Status Reason Start Date Expiration Date Visits Requ ested Visits Authorized [id number] Closed 03/11/2019 03/10/2020 1 1 Encounter Details Date Type Department Care Team Description 06/21/2019 Hospital Encounter Department of Pedro Donnelly ystemic Erythematosus (HCC); Vascular Medicine ANTHONY Rojas, C.N.P . Hepatitis Autoimmune (HCC); in [place], [address] [facility] Shortness Of Breath [place], [place] [address] [place] [phone] [place], [place] [phone] (Work) [phone] Social History Tobacco Use Types Packs/Day Years [...] 1 tablet by 0 azide mouth daily. (LEONELA,ZESTORETIC) 20-25 mg per tablet cefdinir (OMNICEF) 300 mg Take 1 capsule (300 10 capsule 0 1 06/26/2019 capsule mg total) by mouth every 12 (twelve) hours for 5 days. azaTHIOprine (IMURAN) 50 TAKE 3 TABLETS BY 270 tablet 2 03/0802/10/2020 mg tablet MOUTH EVERY DAY ferrous sulfate 324 mg Take 65 mg of iron 0 09/14/2019 (65 mg iron) DR tablet by mouth. omeprazole (PriLOSEC) 40 Take 1 capsule (40 90 capsule 3 06/29/[address] capsule mg total) by mouth daily. documented as of this encounter Plan of Treatment Upcoming Encounters Date Type Specialty Care Team Description 07/08/2022 Appointment Laboratory Medicine Pedro Donnelly, [employer], C.N.P. [address] [place] [phone] (Wo rk) 07/08/2022 Office Visit Gastroenterology and Collin Trivedi, Hepatology M.DSarina [address] [place] [phone] (Wo rk) documented as of this encounter Procedures Procedure Name Priority Date/Time Associated Diagnosis Comme nts ARTERIAL HEALTH Routine 06/21/2019 2:06 PM Lupus Systemic Resu lts for this SCREEN CDT Erythematosus (H CC) procedure are in Hepatitis Autoimmune the res ults (HCC) section. Shortness Of Breath documented in this encounter Results Arterial Health Screen (06/21/2019 2:06 PM CDT) Anatomical Region Laterality Modality Other Specimen (Source) Anatomical Collection Method Collection Time Re ceived Time Location / / Volume Laterality 06/21/2019 12:55 PM CDT Narrative 06/21/2019 12:55 PM CDT General: Doppler Waveform ?Right: ?? PT- Normal, ?? DP- Normal ?Left: ? PT- N ormal, ?? DP- Normal ??Resting Arterial Pressure ?Right (YENY): ??PT- ??Normal ??(1.12), ?DP- ??Normal ??(1.07), ? TBI- ??0.60 ?? Left (YENY): ??PT- ??Abnormal ?? (0.96), ?DP- ??Abnormal ??(0.98), ? TBI- ??0.72 ?? Carotid Intima- Media Thickness (CIMT) ?Result: ??Carotid intima-media thickness is above the 75th percentile for the patient's age and gender. ? Right Common Carot id, Posterior Wall mean (mm) - - ? 0.72 ??Left Common Carotid, Po sterior Wall mean (mm) - - ? 0.84 ??Plaque: ?Right- ?? Absent, ?Left: ?? Absent ??Tonometry ?Pulse Wave Velocity: ??6.2 Conclusions: The ankle -brachial pressur e indices are normal on the right and borderline normal on the left. Carotid intima-media thickness is above the 75th percentile for the patient's age and gender. ??There is no carotid plaque. Systemic blood pressure is 122/60 on the right and 122/ 58 on the left. The pulse wave velocity is 6.2 m/s. No previous study for comparison. Procedure Note Nicholas Pascal M.D. - 06/21/2019Formatti ng of this note might be different from the original. General: Doppler Waveform Right: PT- Nor mal, DP- Normal Left: PT- Normal, DP- Normal Resting Arterial Pressure Right (YENY): PT- Normal (1.12), DP- Normal (1.07), TBI- 0.60 Left (YENY): PT- Abnormal (0.96), DP- Abnormal (0.98), TBI- 0.72 C arotid Intima-Media Thickness (CIMT) Result: Carotid intima-media thickness is above the 75th percentile for the patient's age and gender. Right Common Carotid, Posterior Wall mean (mm) - - 0.72 Left Common Carotid, Posterior Wall mean (mm) - - 0.84 Plaque: Right- Absent, Left: Absent Tonometry Pulse Wave Velocity: 6.2 Conclusions: The ankle -brachial pressur e indices are normal on the right and borderline normal on the left. Carotid intima-media thickness is above the 75th percentile for the patient's age and gender. There is no carotid plaque. Systemic blood pressure is 122/60 on the right and 122/ 58 on the left. The pulse wave velocity is 6.2 m/s. No previous study for comparison. Pedro Donnelly APRN, C.N.P. CV VASCULAR PROCEDURES documented in this encounter Visit Diagnoses Diagnosis Lupus Systemic Erythematosus (HCC) Hepatitis Autoimmune (HCC) Shortness Of Breath documented in this encounter
--- OUTSIDE RECORDS SUMMARY | 2022-05-22 16:07 | XMS_ITS | Encounter Summary ---
:1965 Author Organization [facility] Address [address] [place] [address] Care Team Providers Name Role Phone Unavailable Primary Care Provider Unavailable Reason for Visit Outpatient (Routine) - Closed Specialty Diagnoses / Procedures Referred By Contact Refer red To Contact Diagnoses Other Dyspnea Pedro Donnelly, ANTHONY, [facility] Procedures Six Minute Walk C.N.P [address] [place] [address] [phone] Referral ID Status Reason Start Date Expiration Date Visits Requ ested Visits Authorized [id number] Closed 04/22/2019 04/21/2020 1 1 Encounter Details Date Type Department Care Team Description 06/21/2019 Diagnostic Division of Pulmonary Pedro Donnelly AP RN, Other [facility] [address] [facility] [address] [place] [phone] (Wo rk) Social History Tobacco Use Types [...] How often do you attend restorationism or nondenominational services? Never 09/23/2021 Do you [...] 07/08/2022 Appointment Laboratory Medicine Pedro Donnelly, AUTO TRANSMISSION TECHNICIAN, C.N.P. [address] [place] [phone] (Claudia vera) 07/08/2022 Office Visit Gastroenterology and Collin Trivedi Hepatology [place] [address] [place] [phone] (Claudia rk) documented as of this encounter Procedures Procedure Name Priority Date/Time Associated Diagnosis Comme nts 6 MINUTE WALK Routine 06/21/2019 7:20 AM Other Dyspnea Results for this CDT procedure are i n the results section . documented in this encounter Results Six Minute Walk (06/21/2019 7:20 AM CDT) P athologist Signature [1] Distance 1,435 (feet) [1] Distance 437 (Meters) [1] Inspired Room Air Gas [1] SpO2 Pilo 96 [1] SpO2 % 98 [1] Heart Rate 123 [1] RPE 3 Specimen (Source) Anatomical Location Collection Method / Collectio n Time Received Time / Laterality Volume Pedro Donnelly APRN, C.N.P. CV STRESS PROCEDURES documented in this encounter Visit Diagnoses Diagnosis Other Dyspnea documented in this encounter
--- OUTSIDE RECORDS SUMMARY | 2022-05-22 16:07 | XMS_ITS | Encounter Summary ---
:1965 Author Organization [facility] Address [address] [place] [address] Care Team Providers Name Role Phone Unavailable Primary Care Provider Unavailable Encounter Details Date Type Department Care Team Description 06/21/2019 Hospital Encounter Department of Pedro Donnelly S ystemic Erythematosus (HCC); Laboratory Medicine R, BIOGEOGRAPHER, C.N .P. Hepatitis Autoimmune (HCC); and Pathology, [address] [place] [address] Shortness Of Breath [place] [phone] [place] [phone] [place] [address] (Work) [place], [place] [phone] (Fax) [phone] Social History Tobacco Use Types Packs/Day Years [...] How often do you attend buddhist or restoration services? Never 09/23/2021 Do you [...] to pay for the very basics like [employer] hat hard 09/23/2021 food, housing, medical care, [...] Description 07/08/2022 Appointment Laboratory Medicine Pedro Donnelly, BIOGEOGRAPHER, C.N.P. [address] [place] [phone] (Claudia vera) 07/08/2022 Office Visit Gastroenterology and Collin Trivedi Hepatology [place] [address] [place] [phone] (Claudia vera) documented as of this encounter Procedures Procedure Name Priority Date/Time Associated Diagnosis Comme nts LIPID PANEL, S Routine 06/21/2019 7:40 Lupus Systemic Results for this AM CDT Erythematosus (H CC) procedure are in Hepatitis Autoimmune the res ults (HCC) section. Shortness Of Breath NT-PRO B-TYPE Routine 06/21/2019 7:40 Lupus Systemic Results f or this NATRIURETIC PEPTIDE AM CDT Erythematosu s (HCC) procedure are in (BNP), S Hepatitis Autoimmune the res ults ([facility]) section. Shortness Of Breath DNA DOUBLE-STRANDED Routine 06/21/2019 7:40 Lupus Systemic Res ults for this (DSDNA) ABS, IGG, S AM CDT Erythematosu s (HCC) procedure are in Hepatitis Autoimmune the res ults ([facility]) section. Shortness Of Breath LIPOPROTEIN (A), S/P Routine 06/21/2019 7:40 Lupus Systemic Re sults for this AM CDT Erythematosus (H CC) procedure are in Hepatitis Autoimmune the res ults ([facility]) section. Shortness Of Breath SEDIMENTATION RATE, B Routine 06/21/2019 7:40 Lupus Systemic R esults for this AM CDT Erythematosus (H CC) procedure are in Hepatitis Autoimmune the res ults ([facility]) section. Shortness Of Breath CBC WITH DIFFERENTIAL, B Routine 06/21/2019 7:40 Lupus Systemi c Results for this AM CDT Erythematosus (H CC) procedure are in Hepatitis Autoimmune the res ults ([facility]) section. Shortness Of Breath COMPL C3, S Routine 06/21/2019 7:40 Lupus Systemic Results fo r this AM CDT Erythematosus (H CC) procedure are in Hepatitis Autoimmune the res ults ([facility]) section. Shortness Of Breath COMPLEMENT C4, S Routine 06/21/2019 7:40 Lupus Systemic Result s for this AM CDT Erythematosus (H CC) procedure are in Hepatitis Autoimmune the res ults ([facility]) section. Shortness Of Breath C-REACTIVE PROTEIN, HIGH Routine 06/21/2019 7:40 Lupus Systemi c Results for this SENSITIVITY, S/P AM CDT Erythematosus ( HCC) procedure are in Hepatitis Autoimmune the res ults ([facility]) section. Shortness Of Breath C-REACTIVE PROTEIN Routine 06/21/2019 7:40 Lupus Systemic Resu lts for this (CRP), S/P AM CDT Erythematosus (H CC) procedure are in Hepatitis Autoimmune the res ults ([facility]) section. Shortness Of Breath ALANINE AMINOTRANSFERASE Routine 06/21/2019 7:40 Lupus Systemi c Results for this (ALT), S/P AM CDT Erythematosus (H CC) procedure are in Hepatitis Autoimmune the res ults ([facility]) section. Shortness Of Breath ASPARTATE Routine 06/21/2019 7:40 Lupus Systemic Results fo r this AMINOTRANSFERASE (AST), AM CDT Erythema tosus (HCC) procedure are in S/P Hepatitis Autoimmune the res ults (HCC) section. Shortness Of Breath GLUCOSE, FASTING, S/P Routine 06/21/2019 7:40 Lupus Systemic R esults for this AM CDT Erythematosus (H CC) procedure are in Hepatitis Autoimmune the res ults (HCC) section. Shortness Of Breath CREATININE WITH EGFR, Routine 06/21/2019 7:40 Lupus Systemic R esults for this S/P AM CDT Erythematosus (H CC) procedure are in Hepatitis Autoimmune the res ults (HCC) section. Shortness Of Breath COMPL, TOT, S Routine 06/21/2019 7:39 Lupus Systemic Results f or this AM CDT Erythematosus (H CC) procedure are in Hepatitis Autoimmune the res ults (HCC) section. Shortness Of Breath documented in this encounter Results NT-Pro B-Type Natriuretic Peptide (BNP) (06/21/2019 7:40 AM CDT) P athologist Signature NT-Pro BNP 126 <=157 pg/mL 06/21/2019 DTL 8:59 AM CDT Comment: NT-proBNP values less than 300 pg/mL hav e a 99% negative predictive value for excluding acute congestive heart chichi lure. A cutoff of 1200 pg/mL for patients with an eGFR<60 yields a diagno stic sensitivity and specificity of 89% and 72% for acute congestive heart f ailure. ??A diagnostic NT-proBNP cutoff of 900 pg/mL has been suggested i n adults 50-75 years of age in the absence of renal failure. Specimen Anatomical Collection Method Collection Time Receive d Time (Source) Location / / Volume Laterality Blood (Blood, 06/21/2019 7:40 AM 06/21/20 19 8:01 Venous) CDT AM CDT Pedro Donnelly APRN C.N.P. LAB BLOOD ADD-ON Performing Organization Address City/State/ZIP Code Phon e Number [facility] - [address] [place], [place] [address] [facility] [address] Laboratories-[facility] [address] Lipoprotein (a) (06/21/2019 7:40 AM CDT) athologist Signature Lipoprotein(a), 8 <=30 mg/dL 06/21/2019 DTL S 11:40 AM CDT Specimen Anatomical Collection Method Collection Time Receive d Time (Source) Location / / Volume Laterality Blood (Blood, 06/21/2019 7:40 AM 06/21/20 19 Venous) CDT 10:34 AM CDT Apolonia Kumar APRN.N.P. LAB BLOOD ADD-ON Performing Organization Address City/[facility] Phon e Number [facility] - 200 [place], [place] [address] [place] [address] Laboratories-[address] Glucose, Fasting (06/21/2019 7:40 AM CDT) athologist Signature Glucose, P 97 70 - 100 06/21/2019 DTL mg/dL 8:54 AM CDT Last Intake 15 hr 06/21/2019 DTL 8:01 AM CDT Specimen Anatomical Collection Method Collection Time Receive d Time (Source) Location / / Volume Laterality Blood (Blood, 06/21/2019 7:40 AM 06/21/20 8:01 Venous) CDT AM CDT Pedro Donnelly APRN, C.N.P. LAB BLOOD NON ADD-ON Performing Organization Address City/[facility] Phon e Number [facility] - 200 [place], [place] [address] [place] [address] [facility]-[address] (ABNORMAL) Lipid Panel (06/21/2019 7:40 AM CDT) athologist Signature Cholesterol, 126 mg/dL 06/21/2019 DTL Total 8:59 AM CDT Comment: ----REFERENCE VALUE---- Desirable: < 200 Borderline high: 200 - 239 High: > or = 240 Triglycerides 239 (H) mg/dL 06/21/2019 8:59 AM CDT DTL Comment: ----REFERENCE VALUE---- Normal: <150 Borderline high: 150-199 High: 200-499 Very high: > or =500 Cholesterol, HDL, S 36 (L) >=50 mg/dL 06/21/2019 8:59 AM CDT DTL Calculated LDL 42 mg/dL 06/21/2019 8:59 AM CDT DT L Comment: ----REFERENCE VALUE---- Desirable: <100 Above Desirable: 100-129 Borderline high: 130-159 High: 160-189 Very high: > or =190 Cholesterol, Non-HDL, Calculated 90 mg/dL 019 8:59 AM CDT DTL Comment: ----REFERENCE VALUE---- Desirable: <130 Above Desirable: 130-159 Borderline high: 160-189 High: 190-219 Very high: > or =220 Specimen Anatomical Collection Method Collection Time Receive d Time (Source) Location / / Volume Laterality Blood (Blood, 06/21/2019 7:40 AM 06/21/20 8:01 Venous) CDT AM CDT Pedro Donnelly APRN, C.N.P. LAB BLOOD ADD-ON Performing Organization Address City/[facility] Phon e Number [facility] - [address] (ABNORMAL) C-Reactive Protein, High Sensitivity (06/21/2019 7:40 AM CDT) P athologist Signature C-Reactive 3.8 (H) <2.0 mg/L 06/21/2019 DTL Protein, High 11:40 AM CDT Sens, S Comment: Higher risk In adults, increased CRP is associated w ith an increased risk for ischemic cardiovascular events. CRP is an acute phase reactant; consider repeat analysis of CRP in 2-4 weeks to establish baseline value . Specimen Anatomical Collection Method Collection Time Receive d Time (Source) Location / / Volume Laterality Blood (Blood, 06/21/2019 7:40 AM 06/21/20 Venous) CDT 10:34 AM CDT Pedro Donnelly APRN, C.N.P. LAB BLOOD ADD-ON Performing Organization Address City/[facility] Phon e Number [facility] - [address] ALT (Alanine Aminotransferase) (06/21/2019 7:40 AM CDT) [facility] Method Time Signature Alanine 13 7 - 45 06/21/2019 DTL Aminotransferase U/L 8:59 AM CDT (ALT), S Specimen Anatomical Collection Method Collection Time Receive d Time (Source) Location / / Volume Laterality Blood (Blood, 06/21/2019 7:40 AM 06/21/20 8:01 Venous) CDT AM CDT Robert Kumar APRNN.P. LAB BLOOD ADD-ON Performing Organization Address City/State/ZIP Code Phon e Number [facility] - [address] [place], [place] [address] [place] [address] Laboratories-[facility] [address] [facility] AST (Aspartate Aminotransferase) (06/21/2019 7:40 AM CDT) [facility] Method Time Signature Aspartate 17 8 - 43 06/21/2019 DTL Aminotransferase U/L 8:59 AM CDT (AST), S Specimen Anatomical Collection Method Collection Time Receive d Time (Source) Location / / Volume Laterality Blood (Blood, 06/21/2019 7:40 AM 06/21/20 8:01 Venous) CDT AM CDT Robert Kumar APRNN.P. LAB BLOOD ADD-ON Performing Organization Address City/[facility]/ZIP Code Phon e Number [facility] - [address] [place], [place] [address] [place] [address] Laboratories-[place] [address] (ABNORMAL) Complement C4 (06/21/2019 7:40 AM CDT) athologist Signature Complement C4, <3 (L) 14 - 40 06/21/2019 [facility] S mg/dL 3:27 PM CDT Specimen Anatomical Collection Method Collection Time Receive d Time (Source) Location / / Volume Laterality Blood (Blood, 06/21/2019 7:40 AM 06/21/20 Venous) CDT 11:05 AM CDT Apolonia Kumar APRN.N.P. LAB BLOOD ADD-ON Performing Organization Address City/[facility]/ZIP Code Phon e Number [facility] [address] [place] [address] [place] [address] Laboratory Medicine and Pathology [address] [place] [address] Dr. CACERES (ABNORMAL) Complement C3 (06/21/2019 7:40 AM CDT) athologist Signature Complement C3, 74 (L) 75 - 175 06/21/2019 [facility] S mg/dL 2:08 PM CDT Specimen Anatomical Collection Method Collection Time Receive d Time (Source) Location / / Volume Laterality Blood (Blood, 06/21/2019 7:40 AM 06/21/20 Venous) CDT 11:05 AM CDT Pedro Donnelly APRN, C.N.P. LAB BLOOD ADD-ON Performing Organization Address [facility] Phon e Number [place] [phone] [address] [place] [address] Laboratory Medicine and Pathology [address] [place] [address] Dr. CACERES DNA Double-Stranded (dsDNA) Antibodies, IgG (06/21/2019 7:40 AM CDT) athologist [facility] DNA 12.4 <30.0 06/22/2019 [facility] Double-Stranded (Negative) 7:34 AM CDT Ab, IgG, S IU/mL Specimen Anatomical Collection Method Collection Time Receive d Time (Source) Location / / Volume Laterality Blood (Blood, 06/21/2019 7:40 AM 06/21/20 Venous) CDT 11:07 AM CDT Pedro Donnelly APRN, C.N.P. LAB BLOOD ADD-ON Performing Organization Address City/[facility] Phon e Number [facility] [address] [place] [address] [place] [address] Laboratory Medicine and Pathology [address] [place] [address] Dr. CACERES Creatinine with Estimated GFR (06/21/2019 7:40 AM CDT) athologist [facility] Creatinine 1.04 0.59 - 06/21/2019 DTL 1.04 mg/dL 8:59 AM CDT eGFR-Non 61 >=60 06/21/2019 DTL Black/ mL/min/BSA 8:59 AM CDT Stateless Comment: ----ADDITIONAL INFORMATION---- Estimated GFR calculated using the 2009 CKD_EPI creatinine equation. eGFR-Black/ 70 >=60 mL/min/BSA 2018 8:59 AM CDT DTL Comment: ----ADDITIONAL INFORMATION---- Estimated GFR calculated using the 2009 CKD_EPI creatinine equation. Specimen Anatomical Collection Method Collection Time Receive d Time (Source) Location / / Volume Laterality Blood (Blood, 06/21/2019 7:40 AM 06/21/20 8:01 Venous) CDT AM CDT Pedro Donnelly APRN, C.N.P. LAB BLOOD ADD-ON Performing Organization Address City/State/ZIP Code Phon e Number [facility] - 200 [place], [place] [address] [place] [address] Laboratories-[address] CRP (C-Reactive Protein) (06/21/2019 7:40 AM CDT) P athologist Signature C-Reactive 3.9 <=8.0 mg/L 06/21/2019 DTL Protein (CRP), 8:59 AM CDT S Specimen Anatomical Collection Method Collection Time Receive d Time (Source) Location / / Volume Laterality Blood (Blood, 06/21/2019 7:40 AM 06/21/20 8:01 Venous) CDT AM CDT Pedro Donnelly APRN, C.N.P. LAB BLOOD ADD-ON Performing Organization Address City/State/[facility] Code Phon e Number [facility] - 200 [place], [place] [address] [place] [address] Laboratories-[address] (ABNORMAL) Sedimentation Rate (06/21/2019 7:40 AM CDT) Patholo gist Method Time Signature Sedimentation 84 (H) 0 - 29 06/21/2019 DTL Rate, B mm/1 h 9:43 AM CDT Specimen Anatomical Collection Method Collection Time Receive d Time (Source) Location / / Volume Laterality Blood (Blood, 06/21/2019 7:40 AM 06/21/20 19 8:01 Venous) CDT AM CDT Pedro Donnelly APRN, C.N.P. LAB BLOOD ADD-ON Performing Organization Address City/State/ZIP Code Phon e Number [facility] - [address] [place], [place] [address] [facility] [place] [address] Laboratories-[facility] [address] (ABNORMAL) CBC with Differential, Blood (06/21/2019 7:40 AM CDT) P athologist Signature Hemoglobin 10.3 (L) 11.6 - 15.0 06/21/2019 DHPM g/dL 9:43 AM CDT Comment: Red cell agglutination present, results corrected upon warming specimen Hematocrit 29.5 (L) 35.5 - 44.9 % 06/21/2019 9:43 AM CDT DH PM Erythrocytes 3.08 (L) 3.92 - 5.13 x10(12)/L 06/21/2019 9:43 AM CDT DHPM MCV 95.8 78.2 - 97.9 fL 06/21/2019 9:43 AM CDT DH PM RBC Distrib Width 16.1 12.2 - 16.1 % 06/21/2019 9:43 AM CDT DHPM Platelet Count 148 (L) 157 - 371 x10(9)/L 06/21/2019 9:43 AM CDT DHPM Leukocytes 4.2 3.4 - 9.6 x10(9)/L 06/21/2019 9:43 AM C DT DHPM Neutrophils 3.05 1.56 - 6.45 x10(9)/L 06/21/2019 9:43 A M CDT DHPM Lymphocytes 0.82 (L) 0.95 - 3.07 x10(9)/L 06/21/2019 9:43 A M CDT DHPM Monocytes 0.33 0.26 - 0.81 x10(9)/L 06/21/2019 9:43 AM CDT DHPM Eosinophils <0.03 0.03 - 0.48 x10(9)/L 06/21/2019 9:43 A M CDT DHPM Basophils <0.03 0.01 - 0.08 x10(9)/L 06/21/2019 9:43 AM CDT DHPM Specimen Anatomical Collection Method Collection Time Receive d Time (Source) Location / / Volume Laterality Blood (Blood, 06/21/2019 7:40 AM 06/21/20 19 8:01 Venous) CDT AM CDT Pedro Donnelly APRN, Apolonia.N.P. LAB BLOOD ADD-ON Performing Organization Address City/State/ZIP Code Phon e Number [facility] - [address] [place], [place] [address] [place] [address] Laboratories-[facility] [address] (ABNORMAL) Complement, Total (06/21/2019 7:39 AM CDT) athologist Signature Complement, 19 (L) 30 - 75 06/21/2019 [facility] Total, S U/mL 7:02 PM CDT Specimen Anatomical Collection Method Collection Time Receive d Time (Source) Location / / Volume Laterality Blood (Blood, 06/21/2019 7:39 AM 06/21/20 3:02 Venous) CDT PM CDT Pedro Donnelly APRN, Apolonia.N.P. LAB BLOOD NON ADD-ON Performing Organization Address City/State/ZIP Code Phon e Number [facility] [address] [place], [place] [address] [facility] [place] [address] Laboratory Medicine and Pathology [address] [place] documented in this encounter Visit Diagnoses Diagnosis Lupus Systemic Erythematosus (HCC) Hepatitis Autoimmune (HCC) Shortness Of Breath documented in this encounter
--- OUTSIDE RECORDS SUMMARY | 2022-05-22 16:07 | XMS_ITS | Encounter Summary ---
:1965 Author Organization [facility] Address [address] [place] [address] Care Team Providers Name Role Phone Unavailable Primary Care Provider Unavailable Reason for Visit Reason Onset Date Comments Labs Only 01/27/2019 Encounter Details Date Type Department Care Team Description 01/27/2019 Clinical Communication Division of Rheumatology Avani Celis, Labs Only in [facility] instant potato processor R.N. [address] [facility] [address] [place] [phone] [place], [place] [phone] Social History Tobacco Use Types Packs/Day Years [...] How often do you attend jainism or pentecostalism services? Never 09/23/2021 Do you [...] or slept in a prison (including now)? Sex Assigned at Date Recorded Female 03/09/2018 3:30 PM CDT documented as of this encounter Miscellaneous Notes Telephone Encounter - Avani Celis R.N. - 01/27/2019 2:32 PM CDT ASSESSMENT Rheumatology Monitoring Labs completed on 01/20/2019 were reviewed per Rheumatology division parameters. Labs reviewed: absolute neutrophil count, AST, hemoglobin, leukocytes, platelets leukocytes are outside of the parameters. External labs were sent for scanning. PLAN Provider notified of abnormal lab(s). I have addressed the WBC count of 3.02 K/uL (5.00-10.00) with Pedro Donnelly APRN, MEDICAL INSURANCE CLERK. She recommendsno changes at this time. documented in this encounter Plan of Treatment Upcoming Encounters Date Type Specialty Care Team Description 07/08/2022 Appointment Laboratory Medicine Pedro Donnelly APRN, C.N.P. [address] [place] [phone] (Claudia vera) 07/08/2022 Office Visit Gastroenterology and Collin Trivedi, Hepatology M.DSarina [address] [place] [phone] ([place]) documented as of this encounter Visit Diagnoses Not on filedocumented in this encounter
--- OUTSIDE RECORDS SUMMARY | 2022-05-22 16:07 | XMS_ITS | Encounter Summary ---
:1965 Author Organization [facility] Address [address] [place] [id number] Care Team Providers Name Role Phone Unavailable Primary Care Provider Unavailable Reason for Referral MRI/CAT/PET Scan (Routine) - Closed Specialty Diagnoses / Procedures Referred By Contact Refer red To Contact Radiology Diagnoses Other Dyspnea Pedro Donnelly APRN, [facility] Procedures CT Chest without IV Contrast C.N.P. [address] [place] [phone] Referral ID Status Reason Start Date Expiration Date Visits Requ ested Visits Authorized [id number] Closed 04/22/2019 04/21/2020 1 1 Reason for Visit MRI/CAT/PET Scan (Routine) - Closed Specialty Diagnoses / Procedures Referred By Contact Refer red To Contact Radiology Diagnoses Other Dyspnea Pedro Donnelly APRN, [facility] Procedures CT Chest without IV Contrast C.N.P. [address] [place] [phone] Referral ID Status Reason Start Date Expiration Date Visits Requ ested Visits Authorized [id number] Closed 04/22/2019 04/21/2020 1 1 Encounter Details Date Type Department Care Team Description 06/21/2019 Hospital Encounter Department of Pedro Donnelly Othe r Dyspnea Radiology, Maxi CRUZ, C.N.P. [facility], in [place], [facility] [address] [place], [place] [address] [place] [phone] [place], [place] [phone] (Work) [phone] Social History Tobacco Use Types Packs/Day Years [...] How often do you attend episcopal or adventism services? Never 09/23/2021 Do you [...] Medicine Pedro Donnelly APRN, C.N.P. [address] [place] [phone] (Claudia rk) 07/08/2022 Office Visit Gastroenterology and [facility] M.Juan [address] [place] [phone] (Claudia rk) documented as of this encounter Procedures Procedure Name Priority Date/Time Associated Comments Diagnosis CT CHEST WITHOUT RAD - Routine 06/21/2019 12:30 Other Dyspnea Resul ts for this IV CONTRAST (most inpatients PM CDT procedure a re in and all the results outpatients) section. documented in this encounter Results CT Chest without IV Contrast (06/21/2019 12:30 PM CDT) Anatomical Region Laterality Modality Chest, Thoracic RST LOS, Thoracic ARZ N/A Co mputed Tomography, Computed LOS, Thoracic FLA LOS Tomography Specimen (Source) Anatomical Collection Method Collection Time Re ceived Time Location / / Volume Laterality 06/21/2019 3:40 PM CDT Impressions 06/21/2019 4:12 PM CDT 1. Groundglass abnormality centered along the paramedian bronchovascular bundles with associated ground glass and septal thickening, but also subpleural reticulation in the lateral lungs. Findi ngs may represent early fibrosis from interstitial lung disease, but the appea hilton and distribution is atypical and not specific for the usual entities, suc h as NSIP. Possibly the findings represent the clearing stage of recent i nfection or pulmonary hemorrhage. A follow-up CT with interstitial lung dise ase protocol in 1-2 months would be helpful to assess the evolution of this process. 2. Coronary artery atherosclerotic calci fication. 3. Mild splenomegaly, increased from 201 2. Narrative 06/21/2019 4:12 PM CDT EXAM: CT CHEST WITHOUT IV CONTRAST No 3D post-processing performed. COMPARISON: CT chest 05/25/2012. FINDINGS: Paramedian predominant groundglass abnor mality with associated septal thickening, extending from the upper lob es to the lower lobes. In some of the regions there is mild associated bronchi al dilatation (for example in the medial left lower lobe (3/450 and medial right middle lobe 3/318). Some of this abnormality extends along the bronchovas cular bundles in the upper lobes. Additionally, there is subpleural reticu lation in the lateral inferior upper lobes and superior lower lobes. No cysts . No consolidation or diffuse nodular pattern. Findings are new since CT chest 05/25/2012. Two subpleural nodules in the left lower lobe, the largest measuring 7 mm (3/344) are unchanged from prior. No pericardial or pleural thickening. No effusion. Coronary artery calcification. Small hiatal hernia. No a denopathy. Prominent axillary lymph nodes are unchanged. Cholecystectomy. Th e spleen measures 15.7 cm, slightly increased from prior when it measured 14 .7 cm. Small fat-containing left Bochdalek hernia. Procedure Note Morris Orr M.D. - 06/21/2019Formatt ing of this note might be different from the original. EXAM: CT CHEST WITHOUT IV CONTRAST No 3D post-processing performed. COMPARISON: CT chest 05/25/2012. FINDINGS: Paramedian predominant groundglass abnor mality with associated septal thickening, extending from the upper lob es to the lower lobes. In some of the regions there is mild associated bronchi al dilatation (for example in the medial left lower lobe (3/450 and medial right middle lobe 3/318). Some of this abnormality extends along the bronchovas cular bundles in the upper lobes. Additionally, there is subpleural reticu lation in the lateral inferior upper lobes and superior lower lobes. No cysts . No consolidation or diffuse nodular pattern. Findings are new since CT chest 05/25/2012. Two subpleural nodules in the left lower lobe, the largest measuring 7 mm (3/344) are unchanged from prior. No pericardial or pleural thickening. No effusion. Coronary artery calcification. Small hiatal hernia. No a denopathy. Prominent axillary lymph nodes are unchanged. Cholecystectomy. Th e spleen measures 15.7 cm, slightly increased from prior when it measured 14 .7 cm. Small fat-containing left Bochdalek hernia. IMPRESSION: 1. Groundglass abnormality centered dina g the paramedian bronchovascular bundles with associated ground glass and septal thickening, but also subpleural reticulation in the lateral lungs. Findi ngs may represent early fibrosis from interstitial lung disease, but the appea hilton and distribution is atypical and not specific for the usual entities, suc h as NSIP. Possibly the findings represent the clearing stage of recent i nfection or pulmonary hemorrhage. A follow-up CT with interstitial lung dise ase protocol in 1-2 months would be helpful to assess the evolution of this process. 2. Coronary artery atherosclerotic calci fication. 3. Mild splenomegaly, increased from 201 2. ePdro Donnelly APRN, C.N.P. IMG CT PROCEDURES documented in this encounter Visit Diagnoses Diagnosis Other Dyspnea documented in this encounter
--- OUTSIDE RECORDS SUMMARY | 2022-05-22 16:07 | XMS_ITS | Encounter Summary ---
:1965 Author Organization [facility] Address [address] [place] [address] Care Team Providers Name Role Phone Unavailable Primary Care Provider Unavailable Reason for Referral Outpatient (Routine) - Closed Specialty Diagnoses / Procedures Referred By Contact Refer red To Contact Diagnoses Lupus Systemic Erythematosus (HCC) Hepatitis Autoimmune (HCC) Shortness Of Breath Pedro Donnelly APRN, [facility] Procedures Arterial Health Screen C.N.P. [address] [place] [phone] Referral ID Status Reason Start Date Expiration Date Visits Requ ested Visits Authorized [id number] Closed 03/11/2019 03/10/2020 1 1 Outpatient (Routine) - Closed Specialty Diagnoses / Procedures Referred By Contact Refer red To Contact Rheumatology Pedro Donnelly APR N, C.N.P. [address] [phone] Referral ID Status Reason Start Date Expiration Date Visits Requ ested Visits Authorized [id number] Closed 03/11/2019 03/10/2020 1 1 Reason for Visit Outpatient (Routine) - Closed Specialty Diagnoses / Procedures Referred By Contact Refer red To Contact Rheumatology Pedro Donnelly APR N, C.N.P. [address] [phone] Referral ID Status Reason Start Date Expiration Date Visits Requ ested Visits Authorized [id number] Closed 08/26/2018 08/26/2019 1 1 Encounter Details Date Type Department Care Team Description 03/11/2019 Office Visit Division of Pedro Donnelly Lupus Systemic Erythematosus (HCC) (Primary Dx); Rheumatology in R, SIFTER OPERATOR, C.N.P. Hepatitis Autoimmune (HCC); [place], [place] [address] [facility] Thrombocytopenia (HCC); [address] [place], [place] Shortness Of Breath; [place] [address] Nicotine Dependence Unspecified In Remis alpa; [id number] Other Specified Anemias Social History Tobacco Use Types Packs/Day Years [...] How often do you attend yazidi or methodist services? Never 09/23/2021 Do you [...] Sign Reading Time Taken Comments Blood Pressure 125/59 03/11/2019 7:57 AM CDT Pulse 81 03/11/2019 7:57 AM CDT Temperature 36.6 ??C (97.9 ??F) 03/11/2019 7:57 AM CDT Respiratory Rate - - Oxygen Saturation - - Inhaled Oxygen Concentration - - Weight 108 kg (238 lb 12.1 oz) 03/11/2019 7:57 AM CDT Height 166.4 cm (5' 5.51) 03/11/2019 7:57 AM CDT Body Mass Index 39.11 03/11/2019 7:57 AM CDT documented in this encounter Progress Notes Pedro Donnelly, ANTHONY, C.N.P. - 03/11/2019 8:00 AM CDT SUBJECTIVE CHIEF COMPLAINT / REASON FOR VISIT Vee Danielson is a 53 y.o. female who presents as an established patient for follow up of systemic lupus erythematosus. HISTORY OF PRESENT ILLNESS I had the pleasure of seeing Ms. Danielson in followup. She has been following with Dr. Bal for a diagnosis of systemic lupus erythematosus. 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 Therapy has included topical treatments Plaquenil and az athioprine. She last saw Dr. Bal in August of 2016. At that visit she was describing more weakness in her proximal leg muscles and difficulty getting up from a seated position. She was also noting more knee pain. Plaquenil was discontinued due to concern for possible myopathy. She did not undergo EMG or further testing for this. She has continued with the azathioprine, currentl at 125 milligrams daily. She also has a known history of autoimmune hepatitis. She indicates today that things have not been going as well for her. She was seen by Gastroenterology earlier this year and did undergo some additional workup at that time. She had both colonoscopy andupper endoscopy. She underwent manometry. She was treated with antibiotic for overgrowth but reportstoday that she did not have significant improvement in her symptoms, mainly the diarrhea. She has had some improvement in recent weeks. She has not had the opportunity to start physical therapy for Kegel exercises. She also experiences urinary incontinence. Her main concerns today seem to be continuation of the diarrhea, abdominal pain intermittently, and shortness of breath. She describes feeling short of breath with exertional activity including walkingup 2 flights of stairs. She did quit smoking in July and was anticipating that she would have improvement in her shortness of breath after that time but has not noted this thus far. She can feel tightness in her breathing as well. She does not describe pleuritic type pain. She does also experiencecough after noting a tickle in her throat. She has had episodes when she has coughed until she gait aches and will vomit up some thick mucus. Symptoms will resolve after that. She did undergo a sleep study 2 years ago which was reportedly normal. Other symptoms she is experiencing today include pain in the right thigh with ambulatory activity. She is describing it is similar to a muscle cramp. She did start lisinopril hydrochlorothiazide for her blood pressure earlier this year which she has found quite beneficial. Previous Reports Reviewed:historical medical records, lab reports and office notes The following portions of the patient's history were reviewed and updated as appropriate: allergies,current medications, medical history and problem list. REVIEW OF SYSTEMS Pertinent positives and negatives as documented in the above history of present illness. Skin: Positive for skin rash. Respiratory: Positive for coughing up mucus (phlegm) and dyspnea. Cardiovascular: Positive for swelling in the legs or feet. Gastrointestinal: Positive for abdominal (belly) pain or cramping, nausea and vomiting. Genitourinary: Positive for incontinence and urgency. Musculoskeletal: Positive for back pain. Neurological: Positive for weakness in arms or legs. The following systems were negative: Constitutional, Eyes, ENT, Hematologic, Psych OBJECTIVE PHYSICAL EXAM Constitutional: She is oriented to person, place, and time. She appears well- developed and well-nourished. Eyes: Pupils are equal, round, and reactive to light. Neck: Normal range of motion. Cardiovascular: Normal rate and regular rhythm. Pulmonary/Chest: Effort normal and breath sounds normal. Abdominal: Soft. There is no tenderness. Musculoskeletal: No distinct joint tenderness noted on exam today. No synovitis noted on clinical exam today. No tenderness in the right thigh today. This seems to be induced by walking longer distances. No right hip pain. Neurological: She is alert and oriented to person, place, and time. Skin: Skin is warm and dry. No rash noted. Erythematous rash with raised areas noted on bilateral forearms in the sun- exposed areas. To a lesser extent this is also noted on sun-exposed areas the chest. No open lesions noted. Cystic changes noted in the left second digit distally. Vitals reviewed. Lab: Laboratory studies completed prior to today's visit were reviewed with the patient. These are notable for a drop in hemoglobin to 10.2 which is nearly a 2 g drop since November. Sedimentation rate iselevated at 81. C reactive protein is normal. Creatinine is elevated at 1.24. AST and ALT are both normal. Complements, double-stranded day, and urinalysis are still pending. Disease Activity SLEDAI ASSESSMENT / PLAN #1 Lupus Systemic Erythematosus (HCC) #2 Hepatitis Autoimmune (HCC) #3 Thrombocytopenia (HCC) I do not see anything to suggest her lupus is active today from a clinical standpoint. She is describing generally feeling on well. Her laboratory studies are abnormal which is concerning to me. I willadjust the anemia as noted below. I will be interested to see how complements and urinalysis result out. We discussed that if her urinalysis is abnormal we will either recommend that she pursue bacterial cultures and sensitivities locally or will arrange for her to see Nephrology here with additional testing if there is concern for active renal lupus. Her autoimmune hepatitis does not appear to be active today as her liver enzymes are normal. I discussed with her my hesitation to started prednisone t aper based on abnormal serologies alone. We will pursue additional workup and determine from their how to pursue the next step. If her laboratory studies are abnormal suggesting her lupus may be activewe may consider treating due to the drop in hemoglobin. With regards to her gastrointestinal concerns I have recommended that she reach out to gastroenterology. She will be following up with them in May. Will try to coordinate visit at that time as she does touch bases with them approximately every 6 months also. We will try to coordinate these visits in the future. #4 Shortness Of Breath #5 Nicotine Dependence Unspecified In Remission We will pursue pulmonary function testing and a chest x-ray. If there are concerning findings we will make a referral for her to be seen in Pulmonary Medicine. #6 Other Specified Anemias She has had a near early 2 g drop since November. I will add iron stores. She did have a colonoscopy earlier in the year and does not describe blood in her stools today. We will pursue additional workup at this time. #7 Elevated creatinine We will await the urinalysis results. We did discuss that lisinopril can cause a transient bump in the creatinine. I will order a BMP based on the muscle cramping she is describing. She was agreeable with this plan. PATIENT EDUCATION Ready to learn, no apparent learning barriers were identified; learning preferences include listening. Explained diagnosis and treatment plan; patient expressed understanding of the content. This note is being written using the voice-recognizing software [employer]. It is being edited in real time. However, there may still be occasional grammatical errors.* documented in this encounter Plan of Treatment Upcoming Encounters Date Type Specialty Care Team Description 07/08/2022 Appointment Laboratory Medicine Pedro Donnelly APRN, C.N.P. [address] [place] [phone] (Claudia vera) 07/08/2022 Office Visit Gastroenterology and [facility] Chloe [address] [place] [address] (Claudia vera) Scheduled Referrals Name Type Priority Associated Order Schedule Diagnoses Rheumatology office Outpatient Referral Routine E xpected: visit (clinic) 05/12/2019 (Approximate), Expires: 03/11/2020 documented as of this encounter Procedures Procedure Name Priority Date/Time Associated Diagnosis Comme nts IRON AND TOT Routine 03/11/2019 6:12 AM Other Specified Result s for this IRON-BINDING CDT Anemias procedure are i n CAPACITY, S/P the results section. BASIC METABOLIC Routine 03/11/2019 6:12 AM Lupus Systemic Resu lts for this PANEL, S/P CDT Erythematosus (HCC) procedur e are in the results section. documented in this encounter Results Arterial Health [...] Pedro Donnelly APRN, C.N.P. CV VASCULAR PROCEDURES Urinalysis with Microscopic: Urine, Voided (06/21/2019 8:42 AM CDT) P athologist Signature Source Void 06/21/2019 [facility] 8:42 AM CDT Appearance Normal Normal 06/21/2019 [facility] 9:13 AM CDT Osmolality, U 583 150 - 1150 06/21/2019 [facility] mOsm/kg 9:44 AM CDT pH, U 5.2 4.5 - 8.0 06/21/2019 [facility] 9:44 AM CDT Comment: ----ADDITIONAL INFORMATION---- This test was developed and its performa nce characteristics determined by [facility] in a manner co nsistent with CLIA [...] Laterality Urine (Urine, 06/21/2019 8:42 AM 06/21/20 8:42 Voided) CDT AM CDT Pedro Donnelly APRN, C.N.P. LAB URINE ORDERABLES Performing Organization Address [facility] Phon e Number [facility] - [address] [address] [facility] 200 [facility] NT-Pro B-Type Natriuretic Peptide (BNP) (06/21/2019 7:40 [...] C.N.P. LAB BLOOD ADD-ON Performing Organization Address [facility] Phon e Number [facility] - [address] [address] Formerly [facility] 200 [facility] Lipoprotein (a) (06/21/2019 7:40 AM CDT) athologist [facility] Lipoprotein(a), 8 <=30 mg/dL 06/21/2019 DT S 11:40 AM CDT Specimen Anatomical Collection Method Collection Time Receive d Time (Source) Location / / Volume Laterality Blood (Blood, 06/21/2019 7:40 AM 06/21/20 Venous) CDT 10:34 AM CDT Pedro Donnelly APRN, C.N.P. LAB BLOOD ADD-ON Performing Organization Address City/[facility] Phon e Number [facility] - [address] Glucose, Fasting (06/21/2019 7:40 AM CDT) [facility] Glucose, P 97 70 - 100 06/21/2019 DTL mg/dL 8:54 AM CDT Last Intake 15 hr 06/21/2019 DT 8:01 AM CDT Specimen Anatomical Collection Method Collection Time Receive d Time (Source) Location / / Volume Laterality Blood (Blood, 06/21/2019 7:40 AM 06/21/20 8:01 Venous) CDT AM CDT Pedro Donnelly APRN, C.N.P. LAB BLOOD NON ADD-ON Performing Organization Address City/State/ZIP Code Phon e Number [facility] - [address] (ABNORMAL) Lipid Panel (06/21/2019 7:40 AM CDT) [facility] Ch[facility], 126 mg/dL 06/21/2019 DT Total 8:59 AM CDT Comment: ----REFERENCE VALUE---- Desirable: < 200 Borderline high: 200 - 239 High: > or = 240 Triglycerides 239 (H) mg/dL 06/21/2019 8:59 AM CDT DT Comment: ----REFERENCE VALUE---- Normal: <150 Borderline high: [...] C.N.P. LAB BLOOD ADD-ON Performing Organization Address City/[facility] Phon e Number [facility] - 200 [place], [place] [address] [facility] [place] [address] [facility] 200 [facility] (ABNORMAL) C-Reactive Protein, High Sensitivity (06/21/2019 7:40 [...] 06/21/20 19 Venous) CDT 10:34 AM CDT Pedro Donnelly APRN, C.N.P. LAB BLOOD ADD-ON Performing Organization Address [facility] Phon e Number [facility] - [id number] [place] [address] ALT (Alanine Aminotransferase) (06/21/2019 7:40 AM CDT) [facility] Method Time Signature Alanine 13 7 - 45 06/21/2019 DTL Aminotransferase U/L 8:59 AM CDT (ALT), S Specimen Anatomical Collection Method Collection Time Receive d Time (Source) Location / / Volume Laterality Blood (Blood, 06/21/2019 7:40 AM 06/21/20 8:01 Venous) CDT AM CDT Pedro Donnelly APRN, C.N.P. LAB BLOOD ADD-ON Performing Organization Address City/State/ZIP [facility] Phon e Number [facility] - [id number] [place] [address] AST (Aspartate Aminotransferase) (06/21/2019 7:40 AM CDT) [facility] Method Time Signature Aspartate 17 8 - 43 06/21/2019 DTL Aminotransferase U/L 8:59 AM CDT (AST), S Specimen Anatomical Collection Method Collection Time Receive d Time (Source) Location / / Volume Laterality Blood (Blood, 06/21/2019 7:40 AM 06/21/20 8:01 Venous) CDT AM CDT Pedro Donnelly APRN, C.N.P. LAB BLOOD ADD-ON Performing Organization Address City/State/ZIP Code Phon e Number [facility] - [address] (ABNORMAL) Complement C4 (06/21/2019 7:40 AM CDT) P athologist Signature Complement C4, <3 (L) 14 - 40 06/21/2019 [facility] S mg/dL 3:27 PM CDT Specimen Anatomical Collection Method Collection Time Receive d Time (Source) Location / / Volume Laterality Blood (Blood, 06/21/2019 7:40 AM 06/21/20 Venous) CDT 11:05 AM CDT Pedro Donnelly APRN, Apolonia.N.P. LAB BLOOD ADD-ON Performing Organization Address City/State/ZIP Code Phon e Number [facility] [place], [place] [address] [facility] [place] [address] Laboratory Medicine and Pathology [address] [place] [address] Dr. CACERES (ABNORMAL) Complement C3 (06/21/2019 7:40 AM CDT) athologist Signature Complement C3, 74 (L) 75 - 175 06/21/2019 [facility] S mg/dL 2:08 PM CDT Specimen Anatomical Collection Method Collection Time Receive d Time (Source) Location / / Volume Laterality Blood (Blood, 06/21/2019 7:40 AM 06/21/20 Venous) CDT 11:05 AM CDT Pedro Donnelly APRN, C.N.P. LAB BLOOD ADD-ON Performing Organization Address [facility]/ZIP Code Phon e Number [place] [id number] [place] [address] [facility] [facility] [place] [address] Laboratory Medicine and Pathology [address] [place] [address] Dr. CACERES DNA Double-Stranded (dsDNA) Antibodies, IgG (06/21/2019 7:40 AM CDT) athologist [facility] DNA 12.4 <30.0 06/22/2019 [facility] Double-Stranded (Negative) 7:34 AM CDT Ab, IgG, S IU/mL Specimen Anatomical Collection Method Collection Time Receive d Time (Source) Location / / Volume Laterality Blood (Blood, 06/21/2019 7:40 AM 06/21/20 Venous) CDT 11:07 AM CDT Robert Kumar APRNNGenny LAB BLOOD ADD-ON Performing Organization Address City/State/ZIP Code Phon e Number [facility] [address] [place], [place] [address] [facility] [place] [address] Laboratory Medicine and Pathology [address] [place] [address] Dr. CACERES Creatinine with Estimated GFR (06/21/2019 7:40 AM CDT) athologist Signature Creatinine 1.04 0.59 - 06/21/2019 DTL 1.04 mg/dL 8:59 AM CDT eGFR-Non 61 >=60 06/21/2019 DTL Black/ mL/min/BSA 8:59 AM CDT English Comment: ----ADDITIONAL INFORMATION---- Estimated GFR calculated using [...] C.N.P. LAB BLOOD ADD-ON Performing Organization Address City/[facility] Phon e Number [facility] - [address] [place] [address] CRP (C-Reactive Protein) (06/21/2019 7:40 AM CDT) P athologist Signature C-Reactive 3.9 <=8.0 mg/L 06/21/2019 DTL Protein (CRP), 8:59 AM CDT S Specimen Anatomical Collection Method Collection Time Receive d Time (Source) Location / / Volume Laterality Blood (Blood, 06/21/2019 7:40 AM 06/21/20 8:01 Venous) CDT AM CDT Pedro Donnelly APRN, C.N.P. LAB BLOOD ADD-ON Performing Organization Address City/State/[facility] Phon e Number [facility] - [address] [place], [place] [address] [place] [address] Laboratories-[address] (ABNORMAL) Sedimentation Rate (06/21/2019 7:40 AM [...] Organization Address City/State/ZIP Code Phon e Number [facility] - 200 [place], [place] [address] [facility] [place] [place] [address] [facility] [address] [facility] (ABNORMAL) CBC with Differential, Blood (06/21/2019 7:40 [...] 06/21/20 19 8:01 Venous) CDT AM CDT Robert Kumar APRNN.P. LAB BLOOD ADD-ON Performing Organization Address City/State/ZIP Code Phon e Number [facility] - [address] [place], [place] [address] [place] [address] [facility] [address] (ABNORMAL) Complement, Total (06/21/2019 7:39 AM CDT) athologist Signature Complement, 19 (L) 30 - 75 06/21/2019 [facility] Total, S U/mL 7:02 PM CDT Specimen Anatomical Collection Method Collection Time Receive d Time (Source) Location / / Volume Laterality Blood (Blood, 06/21/2019 7:39 AM 06/21/20 19 3:02 Venous) CDT PM CDT Robert Kumar APRNN.P. LAB BLOOD NON ADD-ON Performing Organization Address City/[facility] Phon e Number [facility] [address] [place], [place] [address] [facility] [place] [address] Laboratory Medicine and Pathology [address] CACERES Pulmonary Function Tests (04/04/2019 7:39 AM CDT) athologist Signature VC MAX POST 3.23 L 04/04/2019 [place] [facility] 10:21 AM CDT SUITE PostFVC 3.22 L 04/04/2019 [place] 10:21 AM CDT SUITE PostFEV1 2.64 L 04/04/2019 [facility] 10:21 AM CDT SUITE FEV1/FVC POST 81.86 % 04/04/2019 [place] 10:21 AM CDT SUITE FEF 25-75 % 2.88 L/s 04/04/2019 [place] POST 10:21 AM CDT SUITE PEF POST 6.61 L/s 04/04/2019 [facility] 10:21 AM CDT SUITE FET POST 6.01 sec 04/04/2019 [place] 10:21 AM CDT SUITE DLCO SINGLE 10.93 ml/(min*mm 04/04/2019 [facility] BREATH POST Hg) 10:21 AM CDT SUITE DLCOC SINGLE 12.34 ml/(min*mm 04/04/2019 [facility] BREATH POST Hg) 10:21 AM CDT SUITE HB 10.20 g(Hb)/dL 04/04/2019 [place] 10:[address] VA SINGLE 4.71 L 04/04/2019 [facility] BREATH POST 10:21 AM CDT SUITE [id number] 100.00 % 04/04/2019 [facility] 10:21 AM CDT SUITE PulseRest 79.00 1/min 04/04/2019 [place] [facility] 10:21 AM CDT SUITE H7YtaZuno 98.00 % 04/04/2019 [facility] 10:21 AM CDT SUITE PulseExer 128.00 1/min 04/04/2019 [facility] 10:21 AM CDT SUITE EXER TIME 1.80 min 04/04/2019 [facility] 10:21 AM CDT SUITE STEP HEIGHT 9.00 Inch 04/04/2019 [facility] PRE 10:21 AM CDT SUITE MIP POST 51.87 cmH2O 04/04/2019 [facility] 10:21 AM CDT SUITE MEP POST 53.03 cmH2O 04/04/2019 [facility] 10:21 AM CDT SUITE VC MAX PRE 3.25 L 04/04/2019 [facility] 10:21 AM CDT SUITE FVC 3.21 L 04/04/2019 [facility] 10:21 AM CDT SUITE FEV1 2.54 L 04/04/2019 [facility] 10:21 AM CDT SUITE FEV1/FVC 79.05 % 04/04/2019 [facility] 10:21 AM CDT SUITE [id number]% 2.35 L/s 04/04/2019 [facility] 10:21 AM CDT SUITE PEF PRE 7.43 L/s 04/04/2019 [facility] 10:21 AM CDT SUITE FET PRE 8.47 sec 04/04/2019 [facility] 10:21 AM CDT SUITE MVV 108.56 L/min 04/04/2019 [facility] 10:21 AM CDT SUITE SUBSTANCE POST NaN 04/04/2019 [facility] 10:21 AM CDT SUITE DOSE POST NaN 04/04/2019 [facility] 10:21 AM CDT SUITE % PRED VC MAX 97.92 % 04/04/2019 [place] 10:21 AM CDT SUITE FVC% 96.63 % 04/04/2019 [place] [facility] 10:21 AM CDT SUITE FEV1% 96.11 % 04/04/2019 [place] 10:21 AM CDT SUITE % PRED 98.87 % 04/04/2019 [facility] FEV[facility]FVC 10:21 AM CDT SUITE % PRED FEF 93.55 % 04/04/2019 [place] 25-75% 10:21 AM CDT SUITE % PRED PEF 126.57 % 04/04/2019 [place] 10:21 AM CDT SUITE PRED VC MAX 3.32 L 04/04/2019 [place] 10:21 AM CDT SUITE PRED FVC 3.32 L 04/04/2019 [place] 10:21 AM CDT SUITE PRED FEV 1 2.64 L 04/04/2019 [place] 10:21 AM CDT SUITE PRED FEV1/FVC 79.95 % 04/04/2019 [place] 10:21 AM CDT SUITE PRED FEF 2.51 L/s 04/04/2019 [place] 25-75% 10:21 AM CDT SUITE PRED PEF 5.87 L/s 04/04/2019 [place] 10:21 AM CDT SUITE Specimen (Source) Anatomical Collection Method Collection Time Re ceived Time Location / / Volume Laterality 04/04/2019 7:39 AM CDT Narrative This result has an attachment that is no t available. Pedro Donnelly APRN, C.N.P. PFT ORDERABLES Performing Organization Address City/State/ZIP Code Phon e Number [facility] SENT SUITE NA DX Chest AP or PA and Lateral 2 Views (03/11/2019 9:32 AM CDT) Anatomical Region Laterality Modality Chest, Thoracic RST LOS, Thoracic ARZ LOS, Thoracic N/A Digital Radiography FLA LOS Specimen (Source) Anatomical Collection Method Collection Time Re ceived Time Location / / Volume Laterality 03/11/2019 9:42 AM CDT Impressions 03/11/2019 9:43 AM CDT Shallow inspiration. Heart size has decreased slightly since 02/23/2013. Stable surgical clips in the left breast. Chest otherwise negative. Narrative 03/11/2019 9:43 AM CDT EXAM: ??DX CHEST AP OR PA AND LATERAL 2 VIEWS Procedure Note Nilay Galindo M.D. - 03/11/2019Form atting of this note might be different from the original. EXAM: DX CHEST AP OR PA AND LATERAL 2 EWS IMPRESSION: Shallow inspiration. Heart size has decr eased slightly since 02/23/2013. Stable surgical clips in the left breast. Chest otherwise negative. Pedro Donnelly APRN, C.N.P. IMG DIAGNOSTIC IMAGING PRO CEDURES (ABNORMAL) BMP (Basic Metabolic Panel) (03/11/2019 6:12 AM CDT) Analysis Performed At Patho logist Time Signature Potassium, S 4.0 3.6 - 5.2 03/11/2019 mmol/L 10:09 AM CDT Sodium, S 144 135 - 145 03/11/2019 mmol/L 10:09 AM CDT Chloride, S 106 98 - 107 03/11/2019 mmol/L 10:09 AM CDT Bicarbonate, S 21 (L) 22 - 29 03/11/2019 mmol/L 10:09 AM CDT Anion Gap 17 (H) 7 - 15 03/11/2019 10:09 AM CDT BUN (Blood Urea 28 (H) 6 - 21 03/11/2019 Nitrogen), S mg/dL 10:09 AM CDT Creatinine 1.19 (H) 0.59 - 03/11/2019 1.04 mg/dL 10:09 AM CDT eGFR-Non 52 (L) >=60 03/11/2019 Black/ mL/min/BSA 10:09 AM CDT English Comment: ----ADDITIONAL INFORMATION---- Estimated GFR calculated using the 2009 CKD_EPI creatinine equation. eGFR-Black/ 60 >=60 mL/min/BSA 2018 10:09 AM CDT Comment: ----ADDITIONAL INFORMATION---- Estimated GFR calculated using the 2009 CKD_EPI creatinine equation. Calcium, Total, S 9.0 8.6 - 10.0 mg/dL 03/11/2019 10:0 9 AM CDT Glucose, S 108 70 - 140 mg/dL 03/11/2019 10:09 AM CDT Specimen Anatomical Collection Method Collection Time Receive d Time (Source) Location / / Volume Laterality Blood (Blood, 03/11/2019 6:12 AM 03/11/20 19 9:03 Venous) CDT AM CDT Pedro Donnelly APRN, Apolonia.N.P. LAB BLOOD ADD-ON Performing Organization Address City/[facility]/ZIP Code Phon e Number [facility] - [address] [place] [phone] 05 [facility] (ABNORMAL) Iron and Total Iron-Binding Capacity (03/11/2019 6:12 AM CDT) P athologist Signature Iron 72 35 - 145 03/11/2019 mcg/dL 10:09 AM CDT Total Iron 196 (L) 250 - 400 03/11/2019 Binding mcg/dL 10:09 AM CDT Capacity Percent 37 14 - 50 % 03/11/2019 Saturation 10:09 AM CDT Specimen Anatomical Collection Method Collection Time Receive d Time (Source) Location / / Volume Laterality Blood (Blood, 03/11/2019 6:12 AM 03/11/20 19 9:03 Venous) CDT AM CDT Pedro Donnelly APRN, Apolonia.N.P. LAB BLOOD ADD-ON Performing Organization Address City/State/ZIP Code Phon e Number [facility] - [address] [place], [place] [address] [facility] documented in this encounter Visit Diagnoses Diagnosis Lupus Systemic Erythematosus (HCC) - Afia vinh Hepatitis Autoimmune (HCC) Thrombocytopenia (HCC) Shortness Of Breath Nicotine Dependence Unspecified In Remis alpa Other Specified Anemias Shortness Of Breath Nicotine Dependence Unspecified In Remis alpa Lupus Systemic Erythematosus (HCC) Hepatitis Autoimmune (HCC) Shortness Of Breath documented in this encounter
--- OUTSIDE RECORDS SUMMARY | 2022-05-22 16:07 | XMS_ITS | Encounter Summary ---
:1965 Author Organization [facility] Address [address] [place] [address] Care Team Providers Name Role Phone Unavailable Primary Care Provider Unavailable Encounter Details Date Type Department Care Team Description 12/27/2018 Orders Only Division of James Joseph (Primary Dx); Gastroenterology in Chloe Burgos [place], [place] [address] [facility] [address] [place] [phone] [phone] Social History Tobacco Use Types Packs/Day Years [...] er 09/23/2021 How often do you attend moravian or lutheran services? Never 09/23/2021 Do you belong to any clubs or organizations such as No 09/23/2021 moravian groups, unions, fraternal or athletic groups, or [...] or slept in a correction (including now)? Sex Assigned at Date Recorded Female 03/09/2018 3:30 PM CDT documented as of this encounter Plan of Treatment Upcoming Encounters Date Type Specialty Care Team Description 07/08/2022 Appointment Laboratory Medicine Pedro Donnelly, MANAGEMENT ENGINEER, C.N.P. [address] [place] [phone] (Claudia vera) 07/08/2022 Office Visit Gastroenterology and Collin Trivedi Hepatology M.DSarina [address] [place] [phone] (Claudia vera) documented as of this encounter Visit Diagnoses Diagnosis Osteoporosis - Primary Diarrhea documented in this encounter
--- OUTSIDE RECORDS SUMMARY | 2022-05-22 16:07 | XMS_ITS | Encounter Summary ---
:1965 Author Organization [facility] Address [address] [place] [address] Care Team Providers Name Role Phone Unavailable Primary Care Provider Unavailable Reason for Referral Outpatient (Routine) - Closed Specialty Diagnoses / Procedures Referred By Contact Refer red To Contact Diagnoses Lupus Erythematosus Landon Bal M.D. [facility] Procedures ECG 12 Lead [address] [place] [address] Referral ID Status Reason Start Date Expiration Date Visits Requ ested Visits Authorized [id number] Closed 06/21/2019 06/20/2020 1 1 utpatient (Routine) - Closed Specialty Diagnoses / Procedures Referred By Contact Refer red To Contact Diagnoses Lupus Erythematosus Landon Bal M.D. [facility] Procedures Echo Transthoracic (TTE) [address] [place] [address] Referral ID Status Reason Start Date Expiration Date Visits Requ ested Visits Authorized [id number] Closed 06/21/2019 06/20/2020 1 1 utpatient (Routine) - Closed Specialty Diagnoses / Procedures Referred By Contact Refer red To Contact Pulmonary Medicine Diagnoses Lupus Erythematosus Landon Bal M.D. [facility] [address] [place] [address] Referral ID Status Reason Start Date Expiration Date Visits V isits Requested Authorized [id number] Closed Specialty 06/21/2019 06/20/2020 1 1 Services Required utpatient (Routine) - Closed Specialty Diagnoses / Procedures Referred By Contact Refer red To Contact Rheumatology Landon Bal M.D. [address] [address] Referral ID Status Reason Start Date Expiration Date Visits Requ ested Visits Authorized [id number] Closed 06/21/2019 06/20/2020 1 1 Reason for Visit Outpatient (Routine) - Closed Specialty Diagnoses / Procedures Referred By Contact Refer sheryl To Contact Rheumatology Pedro Donnelly APR N, C.N.P. [address] [phone] Referral ID Status Reason Start Date Expiration Date Visits Requ ested Visits Authorized [id number] Closed 03/11/2019 03/10/2020 1 1 Encounter Details Date Type Department Care Team Description 06/21/2019 Office Visit Division of Landon Bal, Lupus Erythe matosus Rheumatology in Chloe (Primary Dx) [address] [phone] Social History Tobacco Use Types Packs/Day Years [...] er 09/23/2021 How often do you attend pentecostal or spiritism services? Never 09/23/2021 Do you belong to any clubs or organizations such as No 09/23/2021 pentecostal groups, unions, fraternal or athletic groups, or [...] Sign Reading Time Taken Comments Blood Pressure 139/77 06/21/2019 3:31 PM CDT Pulse 96 06/21/2019 3:31 PM CDT Temperature 37.3 ??C (99.1 ??F) 06/21/2019 3:31 PM CDT Respiratory Rate - - Oxygen Saturation - - Inhaled Oxygen Concentration - - Weight 108 kg (238 lb 5.1 oz) 06/21/2019 3:31 PM CDT Height 165.7 cm (5' 5.24) 06/21/2019 3:31 PM CDT Body Mass Index 39.37 06/21/2019 3:31 PM CDT documented in this encounter Progress Notes Landon Bal M.D. - 06/21/2019 3:30 PM CDT Patient is a 53-year-old female who returns for follow-up of lupus. I had last seen the patient in 2016. She has been followed by our nurse practitioner since then. Patient has developed some dyspnea and was found on pulmonary function test have a reduced DLCO. Patient did stop smoking last year. Patient also feels like she has a urinary tract infection. The patient has also been following with GI regarding autoimmune hepatitis. Patient has been off prednisone for some time but continues with the azathioprine. I interviewed exam the patient. On exam patient pleasant female. Exam head neck reveals no malar rash lungs are clear heart had a regular rate and rhythm abdominal exam did not reveal past pulmonary mass or tenderness exam extremities not reveal any evidence of active synovitis in joints upper lower extremities patient did have some trace lower extremity edema. Assessment 1. SLE. From standpoint lupus things appear relatively stable we will await results of the double-stranded DNA. 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 2. Dyspnea. With a DLCO reduced I do think it is worthwhile to get an echo and electrocardiogram to make sure that we not have pulmonary hypertension. I will also arrange for her to see our colleagues in Pulmonary. She had a CT scan done today but I do not have results of that yet. 3. Autoimmune hepatitis. The doctor and GI has been in touch with her and feels things are stable inthis regard. 4. Urinary tract infection. I will give the patient a prescription. I reviewed the recommendations on ask Mtz expert and we will give her Cefdinir. I will plan on seeing patient back once these additional studies are completed. documented in this encounter Plan of Treatment Upcoming Encounters Date Type Specialty Care Team Description 07/08/2022 Appointment Laboratory Medicine Pedro Donnelly, SUBSTANCE ABUSE SPECIALIST, C.N.P. [address] [place] [phone] (lCaudia vera) 07/08/2022 Office Visit Gastroenterology and Collin Trivedi Hepatology Chloe [address] [place] [phone] (Claudia vera) Scheduled Referrals Name Type Priority Associated Diagnoses Order [facility] Rheumatology office Outpatient Routine Expected : visit (clinic) Referral 06/21/2019 (Approximate), Expires: 06/21/2022 Pulmonary Medicine - Outpatient Routine Lupus Erythematosus 1 Occurrences General consult Referral starting (clinic) 06/21/2019 unti l 06/21/2020 documented as of this encounter Results ECG 12 Lead (08/18/2019 11:01 AM EXCEPTIONAL STUDENT EDUCATION AIDE) P athologist Signature Ventricular Rate 78 BPM MUSE ECG/Min ND Interval 146 ms MUSE QRSD Interval 90 ms MUSE QT Interval 378 ms MUSE QTC Interval 430 ms MUSE P [place] 49 degrees MUSE R [place] -10 degrees MUSE T Wave [place] 29 degrees MUSE Specimen Anatomical Collection Method Collection Time Receive d Time (Source) Location / / Volume Laterality 08/18/2019 11:01 08/18/2019 AM EXCEPTIONAL STUDENT EDUCATION AIDE 11:17 AM EXCEPTIONAL STUDENT EDUCATION AIDE Impressions MUSE - 08/18/2019 11:06 AM EXCEPTIONAL STUDENT EDUCATION AIDE Normal sinus rhythm Normal ECG No previous ECGs available Narrative This result has an attachment that is no t available. Procedure Note Bernardo Wood M.D. - 08/18/2019Formatti ng of this note might be different from the original. IMPRESSION: Normal sinus rhythm Normal ECG No previous ECGs available Landon Bal M.D. ECG ORDERABLES Performing Organization Address City/State/ZIP Code Phon e Number MUSE MUSE NA (TTE) 2D ECHO DOPPLER COLOR (08/18/2019 8:38 AM EXCEPTIONAL STUDENT EDUCATION AIDE) [facility] Enthuse Method Time Signature Ejection Fraction 70 MC [...] / / Volume Laterality 08/18/2019 7:34 AM EXCEPTIONAL STUDENT EDUCATION AIDE Impressions 08/18/2019 10:22 AM EXCEPTIONAL STUDENT EDUCATION AIDE LEFT VENTRICLE: ??Normal left ventricular chamber size. [...] effusion. For the complete report, see the [facility] Documents below. See PDF For Result Narrative 08/18/2019 10:22 AM EXCEPTIONAL STUDENT EDUCATION AIDE For the complete report, see the [facility] Documents below. Final Impressions 1. Normal left [...] original. For the complete report, see the [facility] Documents below. Final Impressions 1. Normal left [...] Result Landon Bal M.D. CV ECHO PROCEDURES Lupus Anticoag Prof (08/18/2019 7:12 AM EXCEPTIONAL STUDENT EDUCATION AIDE) [facility] Method Time Signature Lupus SEE COMMENT 08/18/2019 DTL Anticoagulant 11:15 AM EXCEPTIONAL STUDENT EDUCATION AIDE Tech Interp Comment: No evidence of a lupus anticoagulant bas ed on results of Prothrombin Time (PT), Activated Part ial Thromboplastin Time (APTT), and Dilute Russells Viper V enom Time (DRVVT). Interpretation not reviewed by physician . Prothrombin Time (PT), P 11.2 9.4 - 12.5 sec 08/18/2019 11:13 AM EXCEPTIONAL STUDENT EDUCATION AIDE DTL INR 1.0 0.9 - 1.1 08/18/2019 11:13 AM EXCEPTIONAL STUDENT EDUCATION AIDE DTL Comment: ----ADDITIONAL INFORMATION---- Standard intensity warfarin therapeutic range: 2.0 to 3.0 High intensity warfarin therapeutic rang e: 2.5 to 3.5 Activated Partial Thrombopl Time, P 29 25 - 37 sec 11:15 AM EXCEPTIONAL STUDENT EDUCATION AIDE DTL DRVVT Screen Ratio 0.99 <1.20 ratio 08/18/2019 11:14 AM EXCEPTIONAL STUDENT EDUCATION AIDE DTL Specimen Anatomical Collection Method Collection Time Receive d Time (Source) Location / / Volume Laterality Blood (Blood, 08/18/2019 7:12 AM 08/18/20 7:40 Venous) EXCEPTIONAL STUDENT EDUCATION AIDE AM EXCEPTIONAL STUDENT EDUCATION AIDE Narrative [facility] - 08/18/2019 11:15 AM EXCEPTIONAL STUDENT EDUCATION AIDE Specimen Information: Specimen ID: [id number] Specimen Type: Blood Specimen Collection Start Date: ??7:12 AM Specimen Received Date: 08/18/2019 ??7: 40 AM Specimen ID: [id number] Specimen Type: Blood Specimen Collection Start Date: ??7:12 AM Specimen Received Date: 08/18/2019 ??7: 40 AM Specimen ID: [id number] Specimen Type: Blood Specimen Collection Start Date: ??7:12 AM Specimen Received Date: 08/18/2019 ??7: 40 AM Landon Bal M.D. LAB BLOOD NON ADD-ON Performing Organization Address City/State/ZIP Code Phon e Number [facility] - [address] [place] [address] [place] [address] [facility] 200 [facility] (ABNORMAL) Phosphatidylserine/Prothrombin Antibody, IgG and IgM (08/18/2019 7:12 AM EXCEPTIONAL STUDENT EDUCATION AIDE) P athologist Signature PS/PT Ab, IgG, <9.4 <=30.0 08/25/2019 [facility] S (Negative) 10:08 PM EXCEPTIONAL STUDENT EDUCATION AIDE U Comment: ----ADDITIONAL INFORMATION---- This test has been modified from the man ufacturer's instructions. Its performance characteri stics were determined by [facility] in a manner co nsistent with CLIA requirements. This test has not bee n cleared or approved by the U.S. Food and Drug Admin istration. PS/PT Ab, IgM, S 37.2 (H) <=30.0 (Negative) U 08/25/2019 10 :28 PM EXCEPTIONAL STUDENT EDUCATION AIDE [facility] Comment: Interpretation: Borderline (30.1-40.0) ----ADDITIONAL INFORMATION---- This test has been modified from the man ufacturer's instructions. Its performance characteri stics were determined by [facility] in a manner co nsistent with CLIA requirements. This test has not bee n cleared or approved by the U.S. Food and Drug Admin istration. Specimen Anatomical Collection Method Collection Time Receive d Time (Source) Location / / Volume Laterality Blood (Blood, 08/18/2019 7:12 AM 08/24/20 4:39 Venous) EXCEPTIONAL STUDENT EDUCATION AIDE PM EXCEPTIONAL STUDENT EDUCATION AIDE Landon Bal M.D. LAB BLOOD ADD-ON Performing Organization Address [facility] Phon e Number [address] [place] [address] SUPPORT [facility] [place] [address] Laboratory Medicine and Pathology [address] [place] [address] Dr. CACERES (ABNORMAL) Beta-2 Glycoprotein 1 Antibodies, IgG and IgM (08/18/2019 7:12 AM EXCEPTIONAL STUDENT EDUCATION AIDE) athologist Signature Beta 2 GP1 Ab <9.4 <15.0 08/18/2019 [facility] IgG, S (Negative) 2:54 PM EXCEPTIONAL STUDENT EDUCATION AIDE U/mL Beta 2 GP1 Ab 25.1 (H) <15.0 08/18/2019 [facility] IgM, S (Negative) 2:53 PM EXCEPTIONAL STUDENT EDUCATION AIDE U/mL Comment: Interpretation: Weak Positive ( 15.0-39.9) Specimen Anatomical Collection Method Collection Time Receive d Time (Source) Location / / Volume Laterality Blood (Blood, 08/18/2019 7:12 AM 08/18/20 9:56 Venous) EXCEPTIONAL STUDENT EDUCATION AIDE AM EXCEPTIONAL STUDENT EDUCATION AIDE Landon Bal M.D. LAB BLOOD ADD-ON Performing Organization Address [facility] Phon e Number [address] [place] [address] SUPPORT [facility] [place] [address] Laboratory Medicine and Pathology [address] [place] [address] Dr. CACERES (ABNORMAL) Phospholipid (Cardiolipin) Antibodies, IgG and IgM (08/18/2019 7:12 AM EXCEPTIONAL STUDENT EDUCATION AIDE) Patholo gist Method Time Signature Phospholipid Ab 66.2 (H) <15.0 08/18/2019 [facility] IgM, S (Negative 7:34 PM EXCEPTIONAL STUDENT EDUCATION AIDE ) MPL Comment: Interpretation: Positive (40.0- 79.9) Phospholipid Ab IgG, S 10.2 <15.0 (Negative) GPL 2018 7:19 PM EXCEPTIONAL STUDENT EDUCATION AIDE [facility] Specimen Anatomical Collection Method Collection Time Receive d Time (Source) Location / / Volume Laterality Blood (Blood, 08/18/2019 7:12 AM 08/18/20 19 9:56 Venous) EXCEPTIONAL STUDENT EDUCATION AIDE AM EXCEPTIONAL STUDENT EDUCATION AIDE Landon Bal M.D. LAB BLOOD ADD-ON Performing Organization Address City/State/ZIP Code Phon e Number [facility] [address] [place] [address] SUPPORT C[facility] [place] [address] Laboratory Medicine and Pathology [address] CAC[place] documented in this encounter Visit Diagnoses Diagnosis Lupus Erythematosus - Primary Lupus Erythematosus Lupus Erythematosus documented in this encounter
--- OUTSIDE RECORDS SUMMARY | 2022-05-22 16:07 | XMS_ITS | Encounter Summary ---
:1965 Author Organization [facility] Address [address] [place] [address] Care Team Providers Name Role Phone Unavailable Primary Care Provider Unavailable Encounter Details Date Type Department Care Team Description 12/22/2018 Ancillary Procedure Department of Gastroenterology Social History Tobacco Use Types Packs/Day Years [...] How often do you attend confucianism or mosque services? Never 09/23/2021 Do you [...] or slept in a snf (including now)? Sex Assigned at Date Recorded Female 03/09/2018 3:30 PM CDT documented as of this encounter Plan of Treatment Upcoming Encounters Date Type Specialty Care Team Description 07/08/2022 Appointment Laboratory Medicine Pedro Donnelly APRN, C.N.P. [address] [place] [phone] (Wo rk) 07/08/2022 Office Visit Gastroenterology and Collin Trivedi Hepatology M.DSarina [address] [place] [phone] (Wo rk) documented as of this encounter Procedures Procedure Name Priority Date/Time Associated Comments Diagnosis GASTROENTEROLOGY IMAGE Routine 12/22/2018 1:50 Re sults for this EXAM PM CDT procedure are i n the results section. documented in this encounter Results Stomach, Gastric fundus Upper GI endoscopy-Gastroenterology Image Exam (12/22/2018 1:50 PM CDT) Specimen (Source) Anatomical Collection Method Collection Time Re ceived Time Location / / Volume Laterality 12/22/2018 1:46 PM CDT Narrative [facility] - 12/22/2018 2:45 PM CDT This order has been created [...]
--- OUTSIDE RECORDS SUMMARY | 2022-05-22 16:07 | XMS_ITS | Encounter Summary ---
:1965 Author Organization [facility] Address [address] [place] [address] Care Team Providers Name Role Phone Unavailable Primary Care Provider Unavailable Encounter Details Date Type Department Care Team Description 06/21/2019 Hospital Encounter Department of James Joseph Cirrhosis Of Radiology, Maxi Burgos M.D. Liver (HCC) Building, in [address] [place] [address] [place] [phone] [place], [place] [phone] (Work) [phone] Social History Tobacco Use Types Packs/Day Years [...] How often do you attend christian or gnosticist services? Never 09/23/2021 Do you [...] Description 07/08/2022 Appointment Laboratory Medicine Pedro Donnelly, BOILER TESTER, C.N.P. [address] [place] [phone] (Claudia vera) 07/08/2022 Office Visit Gastroenterology and Collin Trivedi Hepatology M.DSarina [address] [place] [phone] (Claudia vera) documented as of this encounter Procedures Procedure Name Priority Date/Time Associated Diagnosis Comme nts US ABDOMEN COMPLETE Routine 06/21/2019 12:11 PM Other Cirrhosi s Of Results for this CDT Liver (HCC) procedure are i n the results section. documented in this encounter Results US Abdomen Complete (06/21/2019 12:11 PM CDT) Anatomical Region Laterality Modality Abdomen, Ultrasound RST LOS, Ultrasound ARZ LOS, Ultrasound FLA N/A Ultrasound LOS Specimen (Source) Anatomical Collection Method Collection Time Re ceived Time Location / / Volume Laterality 06/21/2019 12:28 PM CDT Impressions 06/21/2019 12:33 PM CDT 1. The hepatic echotexture is coarsened consistent with chronic parenchymal disease. LI-RADS 1 B 2. 3.6 cm hyperechoic mass previously ch aracterized as a hemangioma in the right hepatic lobe 3. Splenomegaly. Narrative 06/21/2019 12:33 PM CDT EXAM: US ABDOMEN COMPLETE COMPARISON: Abdomen ultrasound 11/24/2018 and 08/26/2017: CT 08/22/2015 FINDINGS: Liver: The liver is coarsened, consisten t with chronic parenchymal disease. There is a single discrete homogeneous h yperechoic mass that measures 3.6 cm greatest dimension in the right hepatic lobe, not significantly changed since the prior 2 studies. This was characteri zed as a hemangioma on the CT of 08/22/2015 Gallbladder: Surgically absent Intrahepatic ducts: Not dilated. Common duct: Not dilated. Pancreas: Not well seen due to overlying bowel gas Right kidney: ?? Length:11.3 cm. Normal echogenicity. No hydronephrosis Left kidney: ?? Length:11.0 cm. Normal echogenicity. Mil d global parenchymal loss. No hydronephrosis Spleen: Enlarged. Spleen length:15.0 cm Aorta: Normal caliber. IVC: Normal where seen. Ascites: ??None. Procedure Note Kristel Vieira M.D. - 06/21/2019Formatt ing of this note might be different from the original. EXAM: US ABDOMEN COMPLETE COMPARISON: Abdomen ultrasound 11/24/2018 and 08/26/2017: CT 08/22/2015 FINDINGS: Liver: The liver is coarsened, consisten t with chronic parenchymal disease. There is a single discrete homogeneous h yperechoic mass that measures 3.6 cm greatest dimension in the right hepatic lobe, not significantly changed since the prior 2 studies. This was characteri zed as a hemangioma on the CT of 08/22/2015 Gallbladder: Surgically absent Intrahepatic ducts: Not dilated. Common duct: Not dilated. Pancreas: Not well seen due to overlying bowel gas Right kidney: Length:11.3 cm. Normal echogenicity. No hydronephrosis Left kidney: Length:11.0 cm. Normal echogenicity. Mil d global parenchymal loss. No hydronephrosis Spleen: Enlarged. Spleen length:15.0 cm Aorta: Normal caliber. IVC: Normal where seen. Ascites: None. IMPRESSION: 1. The hepatic echotexture is coarsened consistent with chronic parenchymal disease. LI-RADS 1 B 2. 3.6 cm hyperechoic mass previously ch aracterized as a hemangioma in the right hepatic lobe 3. Splenomegaly. James GRACIA US PROCEDURES documented in this encounter Visit Diagnoses Diagnosis Other Cirrhosis Of Liver (HCC) documented in this encounter
--- OUTSIDE RECORDS SUMMARY | 2022-05-22 16:07 | XMS_ITS | Encounter Summary ---
:1965 Author Organization [facility] Address [address] [place] [address] Care Team Providers Name Role Phone Unavailable Primary Care Provider Unavailable Reason for Visit Reason Comments Med Refill Encounter Details Date Type Department Care Team Description 03/26/2019 Refill Division of Rheumatology in Pedro Donnelly APRN, Med Refill [place], [place] C.N.P. [address] [facility] [address] [place] [address] [place] [address] [phone] (Wo rk) Social History Tobacco Use Types [...] How often do you attend mormon or scientologist services? Never 09/23/2021 Do you [...] Telephone Encounter - Vesna Pringle R.N. - 03/30/2019 9:19 AM CDT Last visit 03/11/2019 [facility] 03/11/2019 within protocol range documented in this encounter Plan of Treatment Upcoming Encounters Date Type Specialty Care Team Description 07/08/2022 Appointment Laboratory Medicine Pedro Donnelly, FAMILY CENTERED SPECIALIST, C.N.P. [address] [place] [phone] (Claudia vera) 07/08/2022 Office Visit Gastroenterology and Collin Trivedi Hepatology Chloe [address] [place] [address] (Claudia vera) documented as of this encounter Visit Diagnoses Not on filedocumented in this encounter
--- OUTSIDE RECORDS SUMMARY | 2022-05-22 16:07 | XMS_ITS | Encounter Summary ---
:1965 Author Organization [facility] Address [address] [place] [address] Care Team Providers Name Role Phone Unavailable [...] How often do you attend uatsdin or zoroastrianism services? Never 09/23/2021 Do you [...] or slept in a alf (including now)? Sex Assigned at Date Recorded Female 03/09/2018 3:30 PM CDT documented as of this encounter Plan of Treatment Upcoming Encounters Date Type Specialty Care Team Description 07/08/2022 Appointment Laboratory Medicine Pedro Donnelly APRN C.N.P. [address] [place] [address] (Wo rk) 07/08/2022 Office Visit Gastroenterology and Collin Trivedi Hepatology M.DSarina [address] [place] [phone] (Wo rk) documented as of this encounter Procedures Procedure Name Priority Date/Time Associated Comments Diagnosis GASTROENTEROLOGY IMAGE Routine 12/22/2018 1:25 Re sults for this EXAM PM CDT procedure are i n the results section. documented in this encounter Results Colonoscopy-Gastroenterology Image Exam (12/22/2018 1:25 PM CDT) Specimen (Source) Anatomical Collection Method Collection Time Re ceived Time Location / / Volume Laterality 12/22/2018 1:25 PM CDT Narrative [facility] - 12/22/2018 2:45 [...]
--- OUTSIDE RECORDS SUMMARY | 2022-05-22 16:07 | XMS_ITS | Encounter Summary ---
:1965 Author Organization [facility] Address [address] [place] [address] Care Team Providers Name Role Phone Unavailable Primary Care Provider Unavailable Encounter Details Date Type Department Care Team Description 12/23/2018 Documentation Division of Gastroenterology Yimi Joseph, in [facility] ki [place] [address] [facility] [address] [place] [address] [place], [place] [phone] (Wo rk) Social History Tobacco Use Types [...] How often do you attend uatsdin or denominational services? Never 09/23/2021 Do you belong to [...] or slept in a usp (including now)? Sex Assigned at Date Recorded Female 03/09/2018 3:30 PM CDT documented as of this encounter Progress Notes James Joseph M.D. - 12/23/2018 2:34 PM CDT Outpatient summary This is a 53 yo lady with autoimmune hepatitis previously followed by Dr. Honorio Westfall. Her other medical history is notable for SLE followed by rheumatology and prior tobacco use. She is doing well from a liver standpoint and has no interval history of hepatic decompensations, including infection, pruritus, encephalopathy, GI related bleeding, fluid overload. ?? #. Autoimmune hepatitis #. Cirrhosis She is managed on azathioprine 150 mg daily and prednisone 5 mg daily. CTP A. MELD 6. - Azathioprine monitoring: She has no evidence of major cytopenias today with the exception of some mild thrombocytopenia that I suspect is also from her cirrhosis. We will continue to follow with routine blood work. She should get a yearly skin exam. Given that she has no elevations in her transaminases, we will maintain the current dose as the thigh pain at this time. - Prednisone use: This is listed as 1 of her medications however she does not take this on a routinebasis. It is mostly on board for lupus flares. - At risk for varices: upper endoscopy in 12/2018 was negative for esophageal varices. Repeat screening in 2-3 years or sooner for any hepatic decompensation. - At risk for HCC: last ultrasound 08/26/17 showed a 2x3x3.5 echogenic mass in the R lobe that corresponded with a hemangioma previously noted on abdominal CT; she had a ultrasound for assessment of hepatocellular carcinoma risk today that did not reveal any concerning lesions with the exception of a stable benign cavernous hemangioma in the right hepatic lobe inferiorly that was known from prior. Repeat in 6 months (05/2019) - At risk for encephalopathy: not present - At risk for hyponatremia: not present - At risk for volume overload: not present ?? #. Bone mineral assessment: Given her smoking history, female sex, underlying cirrhosis, and exposure to steroids, she is high risk for osteoporosis or osteopenia. This did not show evidence of osteoporosis or osteopenia at that time; however she is high risk and I do believe she would benefit from dexa evaluation. This has beenordered and will be scheduled for her at her follow-up visit. Update: - osteopenia with lowest T score -1.0, repeat in 2 years. Osteopenia with 8.2% risk of major osteoporotic fracture, 0.8% hip fracture in 10 years. ?? #. Diarrhea, chronic, watery #. Status post cholecystectomy #. Mild duodenal inflammation without villous atrophy #. Pelvic floor dysfunction #. SIBO At her last visit with GI, it was noted that she was dealing with epigastric discomfort and diarrhera, which had worsened since cholecystectomy. There was also an abnormal rectal exam with incomplete evacuation of stool on history. She did not undergo ARM. She was slated to undergo colonoscopy (also had been having rectal outlet bleeding). She was started on cholestyramine. At our last visit, she described loose watery stools that are occasionally associated with blood. She endorses constipation andfeeling like she cannot empty her bowels. Anxiety symptoms are often associated with worsening of her stooling. She has associated urgency. She did have one episode of incontinence a few months ago. She has five bowel movements per day, always, usually pudding or oatmeal consistency. She was assessed by the prior fellow with rectal exam that he felt might be consistent with pelvic floor dysfunction although the patient declined anorectal manometry at that time. This test was consistent with pelvic floor dysfunction. Other work up included normal endoscopic appearance the esophagus, stomach (except for 3 mm sessilepolyp without bleeding in the gastric fundus), duodenum, and colon, as well as terminal ileum. Histology showed duodenal mucosa with mild chronic inflammation and reactive changes, without dysplasia. Stomach biopsy showed mild reactive gastropathy and negative H pylori. Changes can be seen in nonsteroidal anti-inflammatory drugs and bile reflux. Colonic mucosa was normal. Review of prior labs shows negative tissue transglutaminase IgA in August 2015, with a normal IgAimmunoglobulin level at that time. The low-grade chronic duodenitis is nonspecific and can be associated with several GI diseases, including functional dyspepsia, and other studies have shown associations with cystic gland polyps, reflux disease, and H pylori, the last which she does not have. Given these findings, in combination with the mild reactive gastropathy the can be seen in bile reflux, as well as the patient being status post cholecystectomy, we can do an empiric trial of cholestyramine tohelp with her diarrhea if pelvic floor retraining in unsuccessful in conjunction with fiber increasein diet. Plan: - 1st, we will treat small intestinal bacterial overgrowth with 2 weeks of Flagyl 550 t.i.d. - 2nd, if this is unsuccessful I will recommend changes to the diet that include fiber - 3rd, if this is unsuccessful we will have her undergo pelvic floor retraining - 4th, this unsuccessful she may benefit cholestyramine given her diarrhea status post cholecystectomy Sources: 1. Mich M, Pricilla T, Michela M, et al. Duodenal low-grade inflammation and expression of tight junction proteins in functional dyspepsia. Neurogastroenterol Motil. 2019;:[id number]. 2. PMID: 94303236 #. Tobacco abuse (>30 years) Recently quit in Jul 15 2018. ?? Yony Joseph MD GI & hepatology fellow validation consultant: Dr. Armenta documented in this encounter Plan of Treatment Upcoming Encounters Date Type Specialty Care Team Description 07/08/2022 Appointment Laboratory Medicine Pedro Donnelly, COST RECOVERY TECHNICIAN, C.N.P. [address] [place] [phone] (Claudia vera) 07/08/2022 Office Visit Gastroenterology and Collin Trivedi Hepatology Chloe [address] [place] [phone] (Claudia vera) documented as of this encounter Visit Diagnoses Not on filedocumented in this encounter
--- OUTSIDE RECORDS SUMMARY | 2022-05-22 16:07 | XMS_ITS | Encounter Summary ---
:1965 Author Organization [facility] Address [address] [place] [address] Care Team Providers Name Role Phone Unavailable Primary Care Provider Unavailable Reason for Referral MRI/CAT/PET Scan (Routine) - Closed Specialty Diagnoses / Procedures Referred By Contact Refer red To Contact Radiology Diagnoses Other Dyspnea Pedro Donnelly APRN, [facility] Procedures CT Chest without IV Contrast C.N.P. [address] [place] [phone] Referral ID Status Reason Start Date Expiration Date Visits Requ ested Visits Authorized [id number] Closed 04/22/2019 04/21/2020 1 1 Outpatient (Routine) - Closed Specialty Diagnoses / Procedures Referred By Contact Refer red To Contact Diagnoses Other Dyspnea Pedro Donnelly APRN, [facility] Procedures Six Minute Walk C.N.P. [address] [place] [phone] Referral ID Status Reason Start Date Expiration Date Visits Requ ested Visits Authorized [id number] Closed 04/22/2019 04/21/2020 1 1 Reason for Visit Reason Onset Date Comments Medical Information 04/13/2019 Encounter Details Date Type Department Care Team Description 04/13/2019 Clinical Communication Division of Matt Mireles al Information Rheumatology in E, R.N. [place], [place] [phone] [place] [address] (Work) [place] [address] Social History Tobacco Use Types Packs/Day Years [...] How often do you attend taoist or caodaism services? Never 09/23/2021 Do you [...] this encounter Miscellaneous Notes Addendum Note - Pedro Donnelly APRN, C.N.P. - 04/22/2019 2:48 PM CDT Addended by: PEDRO DONNELLY on: 04/22/2019 02:48 PM Modules accepted: Orders Telephone Encounter - Pedro Donnelly APRN, RobertN.P. - 04/22/2019 2:45 PM CDT I spoke with the patient over the phone today. She will start iron supplementation. [facility] and relates to me that her primary care felt that her issueswere too complicated to be managed locally and that she should return to be seen in rheumatology by c onsulting staff. Please schedule her with Dr. Bal for a follow-up visit at the soonest availability. Let me know if I need to place new orders. She is aware that it may be into July before she isable to see him. We reviewed laboratory studies again and she is concerned that her symptoms are a result of lupus flare. She has had a slight drop in her C3, C4 remains undetectable. Her sedimentationrate was slightly elevated. After discussing with her at length we will plan to do a prednisone taper. She will call us and let us know how she does with the taper and if symptoms return as she tapers down on the prednisone. I discussed her pulmonary function testing with her and have recommended thatshe visit with our colleagues in Pulmonary Medicine. She was agreeable to this and orders will be placed. Lastly she had canceled her cardiology appointments in May and now wishes for them to be rescheduled. Please reschedule those for some time this fall to coordinate with her pulmonary appointments. These can be scheduled before her return visit to Rheumatology. Thank you, Pedro Telephone Encounter - Karen Perez Crystal - 04/19/2019 1:28 PM CDT Patient called to cancel all her appointments for may 12 as she would like a call explaining her results and better explaining the testing that was ordered. She does not understand or think it is needed. She would also like to be prescribed a taper does of Prednisone as she states it was offered to her but never filled. She also states she is wanting to go back to seeing Dr. Bal. I explainedour process here and she states 'it is her right to see a rheumatology MD and will be rescheduling to see him in August she states she is expecting a phone call not a portal message with a better explanation than she has been/ keeps getting Telephone Encounter - Matt Mireles R.N. - 04/13/2019 9:44 AM CDT Attempted to call patient, left voice message. Please relay the following, per Pedro Donnelly, regarding portal message from 03/30/19: Please call patient to help clarify. ??She was noted to be anemic at her last visit. ??The message I sent was to let her know that her iron stores were low which might explain the anemia. ??Please clarify if she has started any iron supplements. ??I would suggest touching bases with her primary care provider regarding this and her elevated creatinine. ??I do not think it would be unreasonable to consider repeating her CBC and creatinine. ??Please let me know which labs she would like to use and I can place those orders but ultimately I do think it may be best for her to touch bases with her primary and have them recheck her labs as it's not clear this is directly related to her lupus at this juncture. documented in this encounter Plan of Treatment Upcoming Encounters Date Type Specialty Care Team Description 07/08/2022 Appointment Laboratory Medicine Pedro Donnelly, FORENSIC STRUCTURAL ENGINEER, C.N.P. [address] [place] [phone] (Claudia vera) 07/08/2022 Office Visit Gastroenterology and Collin Trivedi Hepatology Chloe [address] [place] [phone] (Claudia vera) documented as of this encounter [...] 3. Mild splenomegaly, increased from 201 2. Pedro Donnelly APRN, C.N.P. IMG CT PROCEDURES Six Minute Walk (06/21/2019 7:20 AM CDT) [...] this encounter Visit Diagnoses Diagnosis Other Dyspnea Other Dyspnea documented in this encounter
--- OUTSIDE RECORDS SUMMARY | 2022-05-22 16:07 | XMS_ITS | Encounter Summary ---
:1965 Author Organization [facility] Address [address] [place] [address] Care Team Providers Name Role Phone Unavailable Primary Care Provider Unavailable Encounter Details Date Type Department Care Team Description 03/11/2019 Hospital Encounter Department of Pedro Donnelly ss Of Breath; Radiology, Prince Rojas APRN CSarinaN SarinaPSarina Nicotine Dependence Unspecified In [facility], in [address] [place] [address] [place] [phone] [place], [place] [phone] (Work) [phone] Social History Tobacco Use Types Packs/Day Years [...] How often do you attend denominational or episcopal services? Never 09/23/2021 Do you [...] mg per tablet azaTHIOprine (IMURAN) 50 Take 3 tablets (150 280 tablet 1 03/26/2019 mg tablet mg total) by mouth daily. omeprazole (PriLOSEC) 40 Take 1 capsule (40 90 capsule 3 06/29/[address] capsule mg total) by mouth daily. predniSONE (DELTASONE) 5 3 TABS ORALLY DAILY 60 tablet 1 04/22/2019 mg tablet X1WK,2TABS X 1 WEEK, THEN 1&1/2 TAB FOR 1 WEEK, THEN 1 TAB FOR 1 WEEK,THEN STOP documented as of this encounter Plan of Treatment Upcoming Encounters Date Type Specialty Care Team Description 07/08/2022 Appointment Laboratory Medicine Pedro Donnelly, GLUE BONE CRUSHER, C.N.P. [address] [place] [phone] (Claudia vera) 07/08/2022 Office Visit Gastroenterology and Collin Trivedi Hepatology MAyala [address] [place] [phone] (Claudia vera) documented as of this encounter Procedures Procedure Name Priority Date/Time Associated Comments Diagnosis DX CHEST AP OR PA RAD - Routine 03/11/2019 9:32 Shortness Of Result s for this AND LATERAL 2 (most inpatients AM CDT Breath procedure are in VIEWS and all Nicotine the results outpatients) Dependence section. Unspecified In Remission documented in this encounter Results DX Chest AP or PA and Lateral [...] left breast. Chest otherwise negative. Pedro Donnelly APRN C.N.P. IMG DIAGNOSTIC IMAGING PRO CEDURES documented in this encounter Visit Diagnoses Diagnosis Shortness Of Breath Nicotine Dependence Unspecified In Remis alpa documented in this encounter
--- OUTSIDE RECORDS SUMMARY | 2022-05-22 16:07 | XMS_ITS | Encounter Summary ---
:1965 Author Organization [facility] Address [address] [place] [address] Care Team Providers Name Role Phone Unavailable Primary Care Provider Unavailable Reason for Visit Reason Comments Med Refill Encounter Details Date Type Department Care Team Description 05/07/2019 Refill Division of Rheumatology in Pedro Donnelly APRN, Med Refill [place], [place] C.N.P. [address] [facility] [address] [place] [phone] [place] [address] [phone] (Wo rk) Social History Tobacco Use Types [...] How often do you attend sikh or restorationism services? Never 09/23/2021 Do you [...] this encounter Miscellaneous Notes Telephone Encounter - Matt Mireles R.N. - 05/16/2019 8:39 AM CDT Refused prednisone. Patient was given 53 tablets on 04/22/2019 (which would complete the entire taper) and has a refill. Note sent to pharmacy, refused and routed to provider. Telephone Encounter - Dash Tran R.N., C.M.S.RSarinaNSarina - 05/13/2019 8:23 AM CDT Message sent to patient clarifying reasoning for not starting the taper. Telephone Encounter - Meron Echols R.N. - 05/11/2019 9:45 AM CDT Patient read message waiting for response back. Telephone Encounter - Vesna Pringle R.N. - 05/10/2019 4:14 PM CDT Last visit 03/11/2019 [facility] Portal message sent to see if taking prednisone, previous taper written 8/16 documented in this encounter Plan of Treatment Upcoming Encounters Date Type Specialty Care Team Description 07/08/2022 Appointment Laboratory Medicine Pedro Donnelly APRN, C.N.P. [address] [place] [address] (Claudia rk) 07/08/2022 Office Visit Gastroenterology and Collin Trivedi Hepatology Chloe [address] [place] [address] (Claudia rk) documented as of this encounter Visit Diagnoses Not on filedocumented in this encounter
--- OUTSIDE RECORDS SUMMARY | 2022-05-22 16:08 | XMS_ITS | Encounter Summary ---
:1965 Author Organization [facility] Address [address] [place] [address] Care Team Providers Name Role Phone Unavailable Primary Care Provider Unavailable Encounter Details Date Type Department Care Team Description 08/26/2018 Hospital Encounter Department of Pedro Donnelly [facility] Laboratory Medicine R, ACADEMIC DEPARTMENT CHAIR, C.N .P. Erythematosus (HCC) and Pathology, [address] [place] [address] in [facility] [address] [place] [address] [address] [place] [place] [address] (Work) [place], [place] [phone] [phone] (Fax) [phone] Social History Tobacco Use Types Packs/Day Years [...] How often do you attend episcopalian or amish services? Never 09/23/2021 Do you [...] or slept in a fpc (including now)? Sex Assigned at Date Recorded Female 03/09/2018 3:30 PM CDT documented as of this encounter Medications at Time of Discharge Medication Sig Dispensed Refills Start Date End Date calcium carbonate-vit Take 1 tablet by 0 08/25/20 12 D3-min 600 mg calcium- mouth daily. 800 unit tablet azaTHIOprine (IMURAN) 50 Take 3 tablets (150 280 tablet 1 03/26/2019 mg tablet mg total) by mouth daily. FLUoxetine (for_PROzac) Take 1 capsule by 0 12/1712/22/2018 20 mg capsule mouth daily. omeprazole (PriLOSEC) 40 Take 1 capsule (40 90 capsule 3 06/29/[address] capsule mg total) by mouth daily. documented as of this encounter Plan of Treatment Upcoming Encounters Date Type Specialty Care Team Description 07/08/2022 Appointment Laboratory Medicine Pedro Donnelly, ACADEMIC DEPARTMENT CHAIR, C.N.P. [address] [place] [phone] (Claudia rk) 07/08/2022 Office Visit Gastroenterology and Collin Trivedi, Hepatology M.DSarina [address] [place] [phone] (Claudia rk) documented as of this encounter Procedures Procedure Name Priority Date/Time Associated Diagnosis Comme nts DNA DOUBLE-STRANDED Routine 08/26/2018 6:48 Lupus Systemic Res ults for this (DSDNA) ABS, IGG, S AM SKILLED TRADES TEACHER Erythematosus (HCC) p rocedure are in the results section. CBC WITH DIFFERENTIAL, B Routine 08/26/2018 6:48 Lupus Systemi c Results for this AM SKILLED TRADES TEACHER Erythematosus (HCC) procedur e are in the results section. COMPL, TOT, S Routine 08/26/2018 6:48 Lupus Systemic Results f or this AM SKILLED TRADES TEACHER Erythematosus (HCC) procedur e are in the results section. COMPL C3, S Routine 08/26/2018 6:48 Lupus Systemic Results fo r this AM SKILLED TRADES TEACHER Erythematosus (HCC) procedur e are in the results section. COMPLEMENT C4, S Routine 08/26/2018 6:48 Lupus Systemic Result s for this AM SKILLED TRADES TEACHER Erythematosus (HCC) procedur e are in the results section. C-REACTIVE PROTEIN Routine 08/26/2018 6:48 Lupus Systemic Resu lts for this (CRP), S/P AM SKILLED TRADES TEACHER Erythematosus (HCC) procedur e are in the results section. ASPARTATE Routine 08/26/2018 6:48 Lupus Systemic Results fo r this AMINOTRANSFERASE (AST), AM SKILLED TRADES TEACHER Erythematosus (HC C) procedure are in S/P the results section. CREATININE WITH EGFR, Routine 08/26/2018 6:48 Lupus Systemic R esults for this S/P AM SKILLED TRADES TEACHER Erythematosus (HCC) procedur e are in the results section. SEDIMENTATION RATE, B Routine 08/26/2018 6:47 Lupus Systemic R esults for this AM SKILLED TRADES TEACHER Erythematosus (HCC) procedur e are in the results section. documented in this encounter Results AST (Aspartate Aminotransferase) (08/26/2018 6:48 AM SKILLED TRADES TEACHER) Patholo gist Method Time Signature Aspartate 22 8 - 43 08/26/2018 [facility] Aminotransferase U/L 7:50 AM SKILLED TRADES TEACHER LABORATORIE S - (AST), S [facility] Specimen Anatomical Collection Method Collection Time Receive d Time (Source) Location / / Volume Laterality Blood (Blood, 08/26/2018 6:48 AM 08/26/20 18 7:10 Venous) SKILLED TRADES TEACHER AM SKILLED TRADES TEACHER Pedro Donnelly APRN, C.N.P. LAB BLOOD ADD-ON Performing Organization Address City/State/ZIP Code Phon e Number [facility] LABORATORIES - [address] [place], [place] [address] [facility] (ABNORMAL) Complement, Total (08/26/2018 6:48 AM SKILLED TRADES TEACHER) Analysis Performed At Patho logist Time Signature Complement, 23 (L) 30 - 75 08/26/2018 [facility] Total, S U/mL 10:51 AM SKILLED TRADES TEACHER LABORATORIES - [facility] Specimen Anatomical Collection Method Collection Time Receive d Time (Source) Location / / Volume Laterality Blood (Blood, 08/26/2018 6:48 AM 08/26/20 18 8:15 Venous) SKILLED TRADES TEACHER AM SKILLED TRADES TEACHER Apolonia Kumar APRN.N.P. LAB BLOOD NON ADD-ON Performing Organization Address City/[facility]/ZIP Code Phon e Number [facility] [address] [place] [address] 05 [facility] (ABNORMAL) Complement C4 (08/26/2018 6:48 AM SKILLED TRADES TEACHER) Patholo gist Method Time Signature Complement C4, <3 (L) 14 - 40 08/26/2018 [facility] S mg/dL 9:56 AM SKILLED TRADES TEACHER LABORATORIES [facility] Specimen Anatomical Collection Method Collection Time Receive d Time (Source) Location / / Volume Laterality Blood (Blood, 08/26/2018 6:48 AM 08/26/20 18 8:16 Venous) SKILLED TRADES TEACHER AM SKILLED TRADES TEACHER Pedro Donnelly APRN, Apolonia.N.P. LAB BLOOD ADD-ON Performing Organization Address City/[facility] Phon e Number [facility] - [address] [place] [address] [facility] Complement C3 (08/26/2018 6:48 AM SKILLED TRADES TEACHER) Analysis Performed At Patho logist Time Signature Complement C3, 82 75 - 175 08/26/2018 [facility] S mg/dL 8:48 AM SKILLED TRADES TEACHER [facility] Specimen Anatomical Collection Method Collection Time Receive d Time (Source) Location / / Volume Laterality Blood (Blood, 08/26/2018 6:48 AM 08/26/20 18 8:16 Venous) SKILLED TRADES TEACHER AM SKILLED TRADES TEACHER Pedro Donnelly APRN, Apolonia.N.P. LAB BLOOD ADD-ON Performing Organization Address City/[facility] Phon e Number [facility] - [address] [place] [address] 05 [facility] DNA Double-Stranded (dsDNA) Antibodies, IgG (08/26/2018 6:48 AM SKILLED TRADES TEACHER) P athologist Signature DNA <12.3 <30.0 08/26/2018 [facility] Double-Stranded (Negative) 2:23 PM SKILLED TRADES TEACHER SUPERIOR DR JOSE Ab, IgG, S IU/mL [facility] Specimen Anatomical Collection Method Collection Time Receive d Time (Source) Location / / Volume Laterality Blood (Blood, 08/26/2018 6:48 AM 08/26/20 18 9:52 Venous) SKILLED TRADES TEACHER AM SKILLED TRADES TEACHER Pedro Donnelly APRN, C.N.P. LAB BLOOD ADD-ON Performing Organization Address City/State/ZIP Code Phon e Number [facility] [address] [place] [address] 05 [facility] Creatinine with Estimated GFR (08/26/2018 6:48 AM SKILLED TRADES TEACHER) Analysis Performed At Patho logist Time Signature Creatinine 0.98 0.59 - 08/26/2018 [facility] 1.04 mg/dL 7:50 AM SKILLED TRADES TEACHER LABORATORIES [facility] eGFR-Non 66 >=60 08/26/2018 [facility] Black/ mL/min/BSA 7:50 AM SKILLED TRADES TEACHER LABORATORIES [facility] Comment: ----ADDITIONAL INFORMATION---- Estimated GFR calculated using the 2009 CKD_EPI creatinine equation. eGFR-Black/ 76 >=60 mL/min/BSA 08/26/2018 7:50 [facility] Gren[place] AM SKILLED TRADES TEACHER LABORATORIES [facility] Comment: ----ADDITIONAL INFORMATION---- Estimated GFR calculated using the 2009 CKD_EPI creatinine equation. Specimen Anatomical Collection Method Collection Time Receive d Time (Source) Location / / Volume Laterality Blood (Blood, 08/26/2018 6:48 AM 08/26/20 18 7:10 Venous) SKILLED TRADES TEACHER AM SKILLED TRADES TEACHER Pedro Donnelly APRN, C.N.P. LAB BLOOD ADD-ON Performing Organization Address City/[facility]/ZIP Code Phon e Number [facility]ORATORIES [address] [place] [address] 05 [facility] CRP (C-Reactive Protein) (08/26/2018 6:48 AM SKILLED TRADES TEACHER) P athologist Signature C-Reactive <3.0 <=8.0 mg/L 08/26/2018 [facility] Protein (CRP), 7:50 AM SKILLED TRADES TEACHER LABORATORIES - [facility] Specimen Anatomical Collection Method Collection Time Receive d Time (Source) Location / / Volume Laterality Blood (Blood, 08/26/2018 6:48 AM 08/26/20 18 7:10 Venous) SKILLED TRADES TEACHER AM SKILLED TRADES TEACHER Robert Kumar APRNN.PSarina LAB BLOOD ADD-ON Performing Organization Address City/State/ZIP Code Phon e Number [facility] LABORATORIES - [address] [place], [place] [address] [facility] (ABNORMAL) CBC with Differential, Blood (08/26/2018 6:48 AM SKILLED TRADES TEACHER) [facility] Method Time Signature Hemoglobin 13.4 11.6 - 08/26/2018 [facility] 15.0 g/dL 7:15 AM SKILLED TRADES TEACHER LABORATORIES [facility] Hematocrit 38.1 35.5 - 08/26/2018 [facility] 44.9 % 7:15 AM SKILLED TRADES TEACHER LABORATORIES [facility] Erythrocytes 4.22 3.92 - 08/26/2018 [facility] 5.13 7:15 AM SKILLED TRADES TEACHER LABORATORIES - x10(12)/L [facility] MCV 90.3 78.2 - 08/26/2018 [facility] 97.9 fL 7:15 AM SKILLED TRADES TEACHER [facility] RBC Distrib 13.9 12.2 - 08/26/2018 [facility] Width 16.1 % 7:15 AM SKILLED TRADES TEACHER [facility] Platelet Count 115 (L) 157 - 371 08/26/2018 [facility] x10(9)/L 7:15 AM SKILLED TRADES TEACHER [facility] Leukocytes 3.8 3.4 - 9.6 08/26/2018 [facility] x10(9)/L 7:15 AM SKILLED TRADES TEACHER LABORATORIES [facility] Neutrophils 2.74 1.56 - 08/26/2018 [facility] 6.45 7:15 AM SKILLED TRADES TEACHER LABORATORIES - x10(9)/L [facility] Lymphocytes 0.68 (L) 0.95 - 08/26/2018 [facility] 3.07 7:15 AM SKILLED TRADES TEACHER LABORATORIES - x10(9)/L [facility] Monocytes 0.33 0.26 - 08/26/2018 [facility] 0.81 7:15 AM SKILLED TRADES TEACHER LABORATORIES - x10(9)/L [facility] Eosinophils 0.04 0.03 - 08/26/2018 [facility] 0.48 7:15 AM SKILLED TRADES TEACHER LABORATORIES - x10(9)/L [facility] Basophils <0.03 0.01 - 08/26/2018 [facility] 0.08 7:15 AM SKILLED TRADES TEACHER LABORATORIES - x10(9)/L [facility] Specimen Anatomical Collection Method Collection Time Receive d Time (Source) Location / / Volume Laterality Blood (Blood, 08/26/2018 6:48 AM 08/26/20 18 7:10 Venous) SKILLED TRADES TEACHER AM SKILLED TRADES TEACHER Hilda Kumar APRN.P. LAB BLOOD ADD-ON Performing Organization Address City/State/ZIP Code Phon e Number [facility] LABORATORIES - [address] [place] [address] [facility] Sedimentation Rate (08/26/2018 6:47 AM SKILLED TRADES TEACHER) [facility] gist Method Time Signature Sedimentation 27 0 - 29 08/26/2018 [facility] Rate, B mm/1 h 8:38 AM SKILLED TRADES TEACHER LABORATORIES - [facility] Specimen Anatomical Collection Method Collection Time Receive d Time (Source) Location / / Volume Laterality Blood (Blood, 08/26/2018 6:47 AM 08/26/20 18 7:10 Venous) SKILLED TRADES TEACHER AM SKILLED TRADES TEACHER Chaka Kumar APRNP. LAB BLOOD ADD-ON Performing Organization Address City/State/ZIP Code Phon e Number [facility]ATORIES - [address] [place] [address] [facility] documented in this encounter Visit Diagnoses Diagnosis Lupus Systemic Erythematosus (HCC) documented in this encounter
--- OUTSIDE RECORDS SUMMARY | 2022-05-22 16:08 | XMS_ITS | Encounter Summary ---
:1965 Author Organization [facility] Address [address] [place] [address] Care Team Providers Name Role Phone Unavailable Primary Care Provider Unavailable Encounter Details Date Type Department Care Team Description 08/10/2018 Clinical Communication Division of [place], Gastroenterology in [place], [place] [address] [facility] [address] [place] [phone] [phone] Social History Tobacco Use Types Packs/Day Years Used Date Smoking Tobacco: Every Day Cigarettes 0.8 22 S tarted: 09/07/1986 Smokeless Tobacco: Never Alcohol Use Standard Drinks/Week [...] How often do you attend anabaptist or buddhist services? Never 09/23/2021 Do you [...] slept in a nursing home (including now)? Sex Assigned at Date Recorded Female 03/09/2018 3:30 PM CDT documented as of this encounter Plan of Treatment Upcoming Encounters Date Type Specialty Care Team Description 07/08/2022 Appointment Laboratory Medicine Pedro Donnelly, INSTANT POTATO PROCESSOR, C.N.P. [address] [place] [phone] (Claudia vera) 07/08/2022 Office Visit Gastroenterology and Collin Trivedi, Hepatology M.DSarina [address] [place] [phone] (Claudia vera) documented as of this encounter Visit Diagnoses Not on filedocumented in this encounter
--- OUTSIDE RECORDS SUMMARY | 2022-05-22 16:08 | XMS_ITS | Encounter Summary ---
:1965 Author Organization [facility] Address [address] [place] [address] Care Team Providers Name Role Phone Unavailable Primary Care Provider Unavailable Encounter Details Date Type Department Care Team Description 11/24/2018 Hospital Encounter Department of [place], Cirrhosi s Nonalcoholic (HCC); Radiology, Maxi Madrigal M.D. Hepatitis Autoimmune (HCC) Building, in [address] [place] [address] [place] [address] [place], [place] [phone] (Work) [phone] Social History Tobacco Use Types Packs/Day Years [...] How often do you attend evangelical or pentecostalism services? Never 09/23/2021 Do you [...] or slept in a intermediate (including now)? Sex Assigned at Date Recorded [...] Description 07/08/2022 Appointment Laboratory Medicine Pedro Donnelly, FUELER, C.N.P. [address] [place] [phone] (Claudia vera) 07/08/2022 Office Visit Gastroenterology and Collin Trivedi Hepatology Chloe [address] [place] [phone] (Claudia vera) documented as of this encounter Procedures Procedure Name Priority Date/Time Associated Comments Diagnosis US ABDOMEN RAD - Routine 11/24/2018 9:32 Cirrhosis Results for this COMPLETE (most inpatients AM CDT Nonalcoholic (H CC) procedure are in and all Hepatitis the results outpatients) Autoimmune (HCC) section. documented in this encounter Results US Abdomen Complete (11/24/2018 9:32 AM CDT) Anatomical Region Laterality Modality Abdomen, Ultrasound RST LOS, Ultrasound ARZ LOS, Ultrasound FLA N/A Ultrasound LOS Specimen (Source) Anatomical Collection Method Collection Time Re ceived Time Location / / Volume Laterality 11/24/2018 11:47 AM CDT Impressions 11/24/2018 12:00 PM CDT IMPRESSION: 1. No interval change in the coarse and echogenic appearance of the hepatic parenchyma. Stable benign cavernous edi ngioma in the right hepatic lobe inferiorly. Narrative 11/24/2018 12:00 PM CDT EXAM: US ABDOMEN COMPLETE COMPARISON: Prior ultrasounds including 08/26/2017 FINDINGS: Liver: Mild coarsening of the hepatic pa renchyma with diffuse increased echogenicity consistent with hepatic iveth atosis. ??2.4 x 3.0 x 3.6 cm lobulated echogenic mass consistent with benign ca vernous hemangioma. Gallbladder: Absent. Intrahepatic ducts: Not dilated. Common duct: Not dilated for post cholec ystomy state, 8 mm. Pancreas: Normal where seen. Right kidney: ?? Length:11.4 cm. Normal echogenicity. No hydronephrosis. Left kidney: ?? Length:11.1 cm. Normal echogenicity. No hydronephrosis. Spleen: Splenomegaly. ??Spleen length:15 .5 cm 2.1 cm accessory spleen. Aorta: Normal caliber. IVC: Normal where seen. Ascites: ??None. Procedure Note Mahi Horner M.D. - 11/24/2018For matting of this note might be different from the original. EXAM: US ABDOMEN COMPLETE COMPARISON: Prior ultrasounds including 08/26/2017 FINDINGS: Liver: Mild coarsening of the hepatic pa renchyma with diffuse increased echogenicity consistent with hepatic iveth atosis. 2.4 x 3.0 x 3.6 cm lobulated echogenic mass consistent with benign ca vernous hemangioma. Gallbladder: Absent. Intrahepatic ducts: Not dilated. Common duct: Not dilated for post cholec ystomy state, 8 mm. Pancreas: Normal where seen. Right kidney: Length:11.4 cm. Normal echogenicity. No hydronephrosis. Left kidney: Length:11.1 cm. Normal echogenicity. No hydronephrosis. Spleen: Splenomegaly. Spleen length:15.5 cm 2.1 cm accessory spleen. Aorta: Normal caliber. IVC: Normal where seen. Ascites: None. IMPRESSION: 1. No interval change in the coarse and echogenic appearance of the hepatic parenchyma. Stable benign cavernous edi ngioma in the right hepatic lobe inferiorly. Rohan GRACIA US PROCEDURES documented in this encounter Visit Diagnoses Diagnosis Cirrhosis Nonalcoholic (HCC) Hepatitis Autoimmune (HCC) documented in this encounter
--- OUTSIDE RECORDS SUMMARY | 2022-05-22 16:08 | XMS_ITS | Encounter Summary ---
:1965 Author Organization [facility] Address [address] [place] [address] Care Team Providers Name Role Phone Unavailable Primary Care Provider Unavailable Reason for Referral Outpatient (Routine) - Closed Specialty Diagnoses / Procedures Referred By Contact Refer red To Contact Diagnoses Incontinence Fecal Constipation James Joseph M.D. [facility] Procedures Anorectal Manometry [address] [place] [address] Referral ID Status Reason Start Date Expiration Date Visits Requ ested Visits Authorized [id number] Closed 11/24/2018 11/24/2019 1 1 Reason for Visit Outpatient (Routine) - Closed Specialty Diagnoses / Procedures Referred By Contact Refer red To Contact Diagnoses Incontinence Fecal Constipation James Joseph M.D. [facility] Procedures Anorectal Manometry [address] [place] [address] Referral ID Status Reason Start Date Expiration Date Visits Requ ested Visits Authorized [id number] Closed 11/24/2018 11/24/2019 1 1 Encounter Details Date Type Department Care Team Description 12/22/2018 Hospital Division of [place], Eitan Fe emily; Encounter Gastroenterology in [place] Reid Constipation [place], [place] [address] [facility] [address] [place] [phone] Social History Tobacco Use Types Packs/Day Years [...] How often do you attend christianity or latter day services? Never 09/23/2021 Do you belong to [...] Medicine Pedro Donnelly, ANTHONY, C.N.P. [address] [place] [phone] (Wo rk) 07/08/2022 Office Visit Gastroenterology and Collin Trivedi Hepatology Chloe [address] [place] [phone] (Wo rk) documented as of this encounter Procedures Procedure Name Priority Date/Time Associated Diagnosis Comme nts ANORECTAL MANOMETRY Routine 12/24/2018 10:20 AM Incontin ence Fecal CDT Constipation documented in this encounter Results Anorectal Manometry (12/24/2018 10:20 AM CDT) Narrative This result has an attachment that is no t available. James Joseph M.D. GI PROCEDURE ORDERABLES Performing Organization Address City/State/ZIP Code Phon e Number [facility] documented in this encounter Visit Diagnoses Diagnosis Incontinence Fecal Constipation documented in this encounter
--- OUTSIDE RECORDS SUMMARY | 2022-05-22 16:08 | XMS_ITS | Encounter Summary ---
:1965 Author Organization [facility] Address [address] [place] [address] Care Team Providers Name Role Phone Unavailable Primary Care Provider Unavailable Reason for Visit Reason Comments Med Refill Encounter Details Date Type Department Care Team Description 09/15/2018 Refill Division of Rheumatology in Pedro Donnelly APRN, Med Refill [place], [place] C.N.P. [address] [facility] [address] [place] [phone] [place] [address] [phone] (Wo rk) Social History Tobacco Use Types [...] How often do you attend alevism or anabaptist services? Never 09/23/2021 Do you [...] or slept in a retirement (including now)? Sex Assigned at Date Recorded Female 03/09/2018 3:30 PM CDT documented as of this encounter Miscellaneous Notes Telephone Encounter - Layton Turner RSarinaN. - 09/16/2018 11:44 AM ART INSTALLER Filled 08/26/18 for 6 months INSTALLER documented in this encounter Plan of Treatment Upcoming Encounters Date Type Specialty Care Team Description 07/08/2022 Appointment Laboratory Medicine Pedro Donnelly, ELECTRICAL TESTS SUPERVISOR, C.N.P. [address] [place] [address] (Claudia rk) 07/08/2022 Office Visit Gastroenterology and Collin Trivedi Hepatology Chloe [address] [place] [phone] (Claudia rk) documented as of this encounter Visit Diagnoses Not on filedocumented in this encounter
--- OUTSIDE RECORDS SUMMARY | 2022-05-22 16:08 | XMS_ITS | Encounter Summary ---
:1965 Author Organization [facility] Address [address] [place] [address] Care Team Providers Name Role Phone Unavailable Primary Care Provider Unavailable Reason for Visit Reason Comments Labs Only Encounter Details Date Type Department Care Team Description 07/05/2018 [facility] [place], [place] R.N. [address] [facility] [address] [place] [address] [place], [place] [phone] Social History Tobacco Use Types Packs/Day Years [...] How often do you attend cheondoism or mormonism services? Never 09/23/2021 Do you [...] or slept in a jail (including now)? Sex Assigned at Date Recorded Female 03/09/2018 3:30 PM CDT documented as of this encounter Progress Notes Sudha Rhoades R.N. - 07/05/2018 10:15 AM CDT ASSESSMENT Rheumatology monitoring labs completed at an external lab on 06/18/18 were reviewed per Rheumatologydivision parameters. All monitored labs are within parameters. Labs reviewed: CBC with differential, AST External labs were sent for scanning. PLAN Patient to continue with current plan of care. documented in this encounter Plan of Treatment Upcoming Encounters Date Type Specialty Care Team Description 07/08/2022 Appointment Laboratory Medicine Pedro Donnelly, ANTHONY, C.N.P. [address] [place] [phone] (Claudia vera) 07/08/2022 Office Visit Gastroenterology and Collin Trivedi Hepatology Chloe [address] [place] [phone] (Claudia vera) documented as of this encounter Visit Diagnoses Not on filedocumented in this encounter
--- OUTSIDE RECORDS SUMMARY | 2022-05-22 16:08 | XMS_ITS | Encounter Summary ---
:1965 Author Organization [facility] Address [address] [place] [address] Care Team Providers Name Role Phone Unavailable Primary Care Provider Unavailable Reason for Visit Reason Comments Med Refill Encounter Details Date Type Department Care Team Description 07/07/2018 Refill Division of Gastroenterology in Rohan Armenta Med Refill [place], [place] Chloe [address] [facility] [address] [place] [address] [place], [place] [phone] (Wo rk) Social History Tobacco Use Types [...] How often do you attend muslim or shinto services? Never 09/23/2021 Do you belong to [...] or slept in a longterm (including now)? Sex Assigned at Date Recorded Female 03/09/2018 3:30 PM CDT documented as of this encounter Plan of Treatment Upcoming Encounters Date Type Specialty Care Team Description 07/08/2022 Appointment Laboratory Medicine Pedro Donnelly, NURSING STAFF DEVELOPMENT COORDINATOR, C.N.P. [address] [place] [phone] (Claudia vera) 07/08/2022 Office Visit Gastroenterology and Collin Trivedi, Hepatology M.DSarina [address] [place] [phone] (Claudia vera) documented as of this encounter Visit Diagnoses Not on filedocumented in this encounter
--- OUTSIDE RECORDS SUMMARY | 2022-05-22 16:08 | XMS_ITS | Encounter Summary ---
:1965 Author Organization [facility] Address [address] [place] [address] Care Team Providers Name Role Phone Unavailable Primary Care Provider Unavailable Encounter Details Date Type Department Care Team Description 08/11/2018 Orders Only Division of Geovany, Hepatitis Autoi mmune (HCC) (Primary Dx); Gastroenterology in [place] Marie Madrigal Thrombocytopenia (HCC); [place], [place] [address] [facility] Cirrhosis Nonalcoholic (HCC) [address] [place] [phone] Social History Tobacco Use Types Packs/Day Years [...] How often do you attend sabianist or mosque services? Never 09/23/2021 Do you [...] Description 07/08/2022 Appointment Laboratory Medicine Pedro Donnelly, ELECTROLYTIC ETCHER, C.N.P. [address] [place] [phone] (Wo rk) 07/08/2022 Office Visit Gastroenterology and Collin Trivedi, Hepatology MSarinaDSarina [address] [place] [phone] (Wo rk) documented as of this encounter Visit Diagnoses Diagnosis Hepatitis Autoimmune (HCC) - Primary Thrombocytopenia (HCC) Cirrhosis Nonalcoholic (HCC) documented in this encounter
--- OUTSIDE RECORDS SUMMARY | 2022-05-22 16:08 | XMS_ITS | Encounter Summary ---
:1965 Author Organization [facility] Address [address] [place] [address] Care Team Providers Name Role Phone Unavailable Primary Care Provider Unavailable Encounter Details Date Type Department Care Team Description 12/22/2018 Hospital Encounter Department of James Joseph Cirrhosis Of Laboratory Medicine Chloe Burgos Liver (HCC) and Pathology, [address] [place] [address], in [place], [place] [phone] [place] [address] [place], [place] (Work) [phone] [phone] Social History Tobacco Use Types Packs/Day Years [...] How often do you attend mormon or christian services? Never 09/23/2021 Do you belong to [...] [place] [facility] [place] ([place])? Sex Assigned at Date Recorded [...] Description 07/08/2022 Appointment Laboratory Medicine Pedro Donnelly, GEOTECHNICAL INTERN, C.N.P. [address] [place] [phone] (Claudia vera) 07/08/2022 Office Visit Gastroenterology and Collin Trivedi Hepatology M.DSarina [address] [place] [phone] (Claudia vera) documented as of this encounter Procedures Procedure Name Priority Date/Time Associated Comments Diagnosis PROTHROMBIN TIME Routine 12/22/2018 7:35 AM Other Cirrhosis Of Results for this (PT), P CDT Liver (HCC) procedure are i n the results section. documented in this encounter Results PT (Prothrombin Time) with INR (12/22/2018 7:35 AM CDT) Patholo gist Method Time Signature Prothrombin 12.0 9.4 - 12.5 12/22/2018 [facility] ER Time, P sec 8:08 AM CDT LABORATORIES - [facility] INR 1.1 0.9 - 1.1 12/22/2018 [facility] ER 8:08 AM CDT LABORATORIES [facility] Comment: ----ADDITIONAL INFORMATION---- Standard intensity warfarin therapeutic range: 2.0 to 3.0 ?? High intensity warfarin therapeutic rang e: 2.5 to 3.5 Specimen Anatomical Collection Method Collection Time Receive d Time (Source) Location / / Volume Laterality Blood (Blood, 12/22/2018 7:35 AM 12/23/19 19 7:54 Venous) CDT AM CDT James Joseph M.D. LAB BLOOD ADD-ON Performing Organization Address City/State/ZIP Code Phon e Number [facility] LABORATORIES - 200 [place], [place] [address] [facility] documented in this encounter Visit Diagnoses Diagnosis Other Cirrhosis Of Liver (HCC) documented in this encounter
--- OUTSIDE RECORDS SUMMARY | 2022-05-22 16:08 | XMS_ITS | Encounter Summary ---
:1965 Author Organization [facility] Address [address] [place] [address] Care Team Providers Name Role Phone Unavailable Primary Care Provider Unavailable Reason for Visit Reason Comments Med Refill Encounter Details Date Type Department Care Team Description 09/17/2018 Refill Division of Rheumatology in Pedro Donnelly APRN, Med Refill [place], [place] C.N.P. [address] [facility] [address] [place] [address] [place] [address] [phone] (Wo rk) Social History Tobacco Use Types [...] How often do you attend methodist or jainism services? Never 09/23/2021 Do you [...] Description 07/08/2022 Appointment Laboratory Medicine Pedro Donnelly, CELERY TIER, C.N.P. [address] [place] [phone] (Claudia vera) 07/08/2022 Office Visit Gastroenterology and Collin Trivedi Hepatology MAyala [address] [place] [phone] (Claudia vera) documented as of this encounter Visit Diagnoses Not on filedocumented in this encounter
--- OUTSIDE RECORDS SUMMARY | 2022-05-22 16:08 | XMS_ITS | Encounter Summary ---
:1965 Author Organization [facility] Address [address] [place] [address] Care Team Providers Name Role Phone Unavailable Primary Care Provider Unavailable Reason for Visit Reason Onset Date Comments unscheduled visit 11/24/2018 possible lupus flare Encounter Details Date Type Department Care Team Description 11/24/2018 Clinical Communication Division of gabby Turner eduled visit Rheumatology in Layton Ramirez R.N. (possible lupus [place], [place] [address] [facility] flare) [address] [place] [phone] Social History Tobacco Use Types Packs/Day Years [...] How often do you attend yarsani or christian services? Never 09/23/2021 Do you [...] slept in a long term (including now)? Sex Assigned at Date Recorded Female 03/09/2018 3:30 PM CDT documented as of this encounter Miscellaneous Notes Telephone Encounter - Layton Turner R.N. - 11/24/2018 11:39 AM CDT Pedro Changy patient with Lupus, last visit 08/26/18. Patient stops by desk today as she is in the building. Sitting down with her she notes she has a rash that has recently begun on her right hand. Her 4th and 5th DIP joints have a red, flat rash that she describes as burning. She rates pain from this at 5/10. She said that her flares of lupus seem to start on her right hand. She also has a rash about 5 x 5 on her mid back right side, which is pink in color and not raised. She also notes lump behind right ear. She is currently not taking prednisone, but is taking azathioprine 150 mg/day as noted in last visit. Last visit did note prednisone is ok for flares. Prednisone prescription done by Dr. Goodwin 10/27/18with taper instructions 3 TABS ORALLY DAILY X1WK,2TABS X 1 WEEK, THEN 1&1/2 TAB FOR 1 WEEK, THEN 1 TAB FOR 1 WEEK,THEN STOP. Will ask Dr. Goodwin if she can start prednisone taper outlined in prescription for flare. documented in this encounter Plan of Treatment Upcoming Encounters Date Type Specialty Care Team Description 07/08/2022 Appointment Laboratory Medicine Pedro Donnelly, ENDODONTICS DENTIST, C.N.P. [address] [place] [phone] (Wo rk) 07/08/2022 Office Visit Gastroenterology and Collin Trivedi Hepatology Chloe [address] [place] [phone] (Wo rk) documented as of this encounter Visit Diagnoses Not on filedocumented in this encounter
--- OUTSIDE RECORDS SUMMARY | 2022-05-22 16:08 | XMS_ITS | Encounter Summary ---
:1965 Author Organization [facility] Address [address] [place] [address] Care Team Providers Name Role Phone Unavailable Primary Care Provider Unavailable Encounter Details Date Type Department Care Team Description 08/26/2018 Hospital Encounter Department of Pedro Donnelly [facility] Laboratory Medicine R, TOUR ACTOR, C.N .P. Erythematosus (HCC) and Pathology, [address] [place] [address] in [facility] [address] [place] [address] [place] [address] (Work) [place], [place] [phone] (Fax) [phone] Social History Tobacco Use Types Packs/Day Years [...] How often do you attend methodist or latter day services? Never 09/23/2021 Do [...] Description 07/08/2022 Appointment Laboratory Medicine Pedro Donnelly, TOUR ACTOR, C.N.P. [address] [place] [phone] (Claudia rk) 07/08/2022 Office Visit Gastroenterology and Collin Trivedi Hepatology M.DSarina [address] [place] [phone] (Wo rk) documented as of this encounter Procedures Procedure Name Priority Date/Time Associated Diagnosis Comme nts MICROSCOPIC Routine 08/26/2018 7:13 AM Results f or this AUTOMATED SPECIALIST PHYSICIAN procedure are i n the results section. URINALYSIS WITH Routine 08/26/2018 7:13 AM Lupus Systemic Resu lts for this MICROSCOPIC SPECIALIST PHYSICIAN Erythematosus (HCC) procedur e are in the results section. documented in this encounter Results Microscopic Automated (08/26/2018 7:13 AM SPECIALIST PHYSICIAN) P athologist Signature Microscopy Normal 08/26/2018 [facility] 8:20 AM [facility] Specimen Anatomical Collection Method Collection Time Receive d Time (Source) Location / / Volume Laterality Urine 08/26/2018 7:13 AM 8 7:13 SPECIALIST PHYSICIAN AM SPECIALIST PHYSICIAN Pedro Donnelly APRN C.N.P. LAB URINE ORDERABLES Performing Organization Address City/State/ZIP Code Phon e Number [facility] LABORATORIES - [address] [place], [place] [address] [facility] Urinalysis with Microscopic (08/26/2018 7:13 AM SPECIALIST PHYSICIAN) Patholo gist Method Time Signature Source Midstream 08/26/2018 [facility] 7:13 AM [facility] Appearance Normal Normal 08/26/2018 [facility] 7:57 AM [facility] Osmolality, U 745 150 - 1150 08/26/2018 [facility] mOsm/kg 8:26 AM [facility] pH, U 5.9 4.5 - 8.0 08/26/2018 [facility] 8:26 AM [facility] Comment: ----ADDITIONAL INFORMATION---- This test was developed and its performa nce characteristics determined by [facility] in a manner co nsistent with CLIA requirements. This test has not bee n cleared or approved by the U.S. Food and Drug Admin istration. Glucose 5 0 - 15 mg/dL 08/26/2018 7:57 AM [facility] S Protein, U 16 <26 mg/dL 08/26/2018 7:57 AM [facility] Comment: ----ADDITIONAL INFORMATION---- On 03/03/2017 the total protein assay me thod changed resulting in approximately a 15% increase in prote in values. Protein/Osmolality 0.21 <0.42 Ratio 08/26/2018 8:26 AM [facility] Comment: ----ADDITIONAL INFORMATION---- On 03/03/2017 the total protein assay me thod changed resulting in approximately a 15% increase in prote in values. Predicted 24 Hr 166 mg/24 h 08/26/2018 8:26 AM [facility] Protein [facility] Predicted Range 41-670 mg/24 h 08/26/2018 8:26 AM [facility] SPECIALIST PHYSICIAN [facility]ATORIES - [facility] Hemoglobin, QL Negative Negative 08/26/2018 8:20 AM [facility]ATORIES - [facility] Specimen Anatomical Collection Method Collection Time Receive d Time (Source) Location / / Volume Laterality Urine (Urine, 08/26/2018 7:13 AM 08/26/20 18 7:13 Clean Catch) SPECIALIST PHYSICIAN AM SPECIALIST PHYSICIAN Pedro Donnelly APRN C.N.P. LAB URINE ORDERABLES Performing Organization Address City/State/ZIP Code Phon e Number [facility]ATORIES - [address] [place] [address] [facility] documented in this encounter Visit Diagnoses Diagnosis Lupus Systemic Erythematosus (HCC) documented in this encounter
--- OUTSIDE RECORDS SUMMARY | 2022-05-22 16:08 | XMS_ITS | Encounter Summary ---
:1965 Author Organization [facility] Address [address] [place] [address] Care Team Providers Name Role Phone Unavailable Primary Care Provider Unavailable Reason for Visit Reason Comments Med Refill Encounter Details Date Type Department Care Team Description 06/13/2018 Refill Division of Rheumatology in Pedro Donnelly APRN, Med Refill [place], [place] C.N.P. [address] [facility] [address] [place] [address] [place] [address] [phone] (Wo rk) Social History Tobacco Use Types [...] How often do you attend synagogue or rastafarian services? Never 09/23/2021 Do you [...] this encounter Miscellaneous Notes Telephone Encounter - Arielle Carmen R.N. - 06/16/2018 12:31 PM CDT Please review medication refill. She does not meet protocol and her labs are out of range. Last labs: 05/13/18 Last visit: 05/13/18 It was mentioned a plan would be made if her labs continue to drop, please advise. Do not reply to sender(Float Nurse) Please respond to the following inbasket pool(P RST U DONNA NURSE) documented in this encounter Plan of Treatment Upcoming Encounters Date Type Specialty Care Team Description 07/08/2022 Appointment Laboratory Medicine Pedro Donnelly, ANTHONY, C.N.P. [address] [place] [phone] (Claudia vera) 07/08/2022 Office Visit Gastroenterology and Collin Trivedi Hepatology MAy[place] [address] [place] [phone] (Claudia vera) documented as of this encounter Visit Diagnoses Not on filedocumented in this encounter
--- OUTSIDE RECORDS SUMMARY | 2022-05-22 16:08 | XMS_ITS | Encounter Summary ---
:1965 Author Organization [facility] Address [address] [place] [id number] Care Team Providers Name Role Phone Unavailable Primary Care Provider Unavailable Reason for Referral Outpatient (Routine) - Closed Specialty Diagnoses / Procedures Referred By Contact Refer red To Contact Radiology Diagnoses Other Cirrhosis Of Liver (HCC) James Joseph M.D. Procedures BMD Bone Density Spine Hips BMD BONE DENSITY SPINE HIPS [facility] DEXA BONE DENSITY AXIAL [facility] XR DEXA AXIAL SKLTN [address] [place] [phone] Referral ID Status Reason Start Date Expiration Date Visits Requ ested Visits Authorized [id number] Closed 11/24/2018 11/24/2019 1 1 Outpatient (Routine) - Closed Specialty Diagnoses / Procedures Referred By Contact Refer red To Contact Diagnoses Diarrhea Pain Epigastric James Joesph M.D. [facility] Procedures Colonoscopy [address] [place] [phone] Referral ID Status Reason Start Date Expiration Date Visits Requ ested Visits Authorized [id number] Closed 11/24/2018 11/24/2019 1 1 Outpatient (Routine) - Closed Specialty Diagnoses / Procedures Referred By Contact Refer red To Contact Diagnoses Diarrhea Pain Epigastric James Joseph M.D. [facility] Procedures EGD (EsophagealGastroDuodenoscopy) [address] [place], [place] [phone] Referral ID Status Reason Start Date Expiration Date Visits Requ ested Visits Authorized [id number] Closed 11/24/2018 11/24/2019 1 1 Outpatient (Routine) - Closed Specialty Diagnoses / Procedures Referred By Contact Refer red To Contact Diagnoses Incontinence Fecal Constipation James Joseph M.D. [facility] Procedures Anorectal Manometry [address] [place] [phone] Referral ID Status Reason Start Date Expiration Date Visits Requ ested Visits Authorized [id number] Closed 11/24/2018 11/24/2019 1 1 Reason for Visit Outpatient (Routine) - Closed Specialty Diagnoses / Referred By Referred To Cont act Procedures [facility] [address] [place] [phone] Referral ID Status Reason Start Date Expiration Date Visits Requ ested Visits Authorized [id number] Closed 10/13/2018 10/13/2019 1 1 Encounter Details Date Type Department Care Team Description 11/24/2018 Office Visit Division of Rohan Armenta M.D. [address] [place] [address] [phone] Diarrhea (Primary Dx); Gastroenterology in James Joseph M.D. [address] [place] [phone] Pain Epigastric; [place], [place] Incontinence Fecal; [address] [facility] Constipation; [place] [phone] Cirrhosis Alcoholic (HCC); [phone] Other Cirrhosis Of Liver (HCC) Social History Tobacco Use Types Packs/Day Years [...] How often do you attend methodist or jewish services? Never 09/23/2021 Do you [...] encounter Progress Notes James Joseph M.D. - 11/24/2018 3:40 PM CDT GI outpatient progress note Results from last 7 days Lab Units 11/24/18 0715 SODIUM mmol/L 143 POTASSIUM mmol/L 4.5 CHLORIDE mmol/L 103 BUN mg/dL 13 CREATININE mg/dL 0.82 CALCIUM mg/dL 9.0 ALBUMIN g/dL 4.2 TOTAL PROTEIN g/dL 7.3 BILIRUBIN TOTAL mg/dL 0.8 ALK PHOS U/L 93 ALT U/L 13 AST U/L 26 GLUCOSE S mg/dL 96 Results from last 7 days Lab Units 11/24/18 0715 WBC x10(9)/L 3.6 HEMOGLOBIN g/dL 11.9 HEMATOCRIT % 33.4* MCV fL 93.3 PLATELETS AUTO x10(9)/L 115* MELD-Na score: 6 at 11/24/2018 7:15 AM MELD score: 6 at 11/24/2018 7:15 AM Calculated from: Serum Creatinine: 0.82 mg/dL (Rounded to 1) at 11/24/2018 7:15 AM Serum Sodium: 143 mmol/L (Rounded to 137) at 11/24/2018 7:15 AM Total Bilirubin: 0.8 mg/dL (Rounded to 1) at 11/24/2018 7:15 AM INR(ratio): 1 at 11/24/2018 7:15 AM Age: 53 years Physical exam is notable for a moderately overweight female in no acute distress. She is nontoxic. Sclerae are anicteric and there are no oropharyngeal lesions. There is no asterixis. Abdomenis soft. Lower extremities show no peripheral edema. Assessment and plan: This is a 53 yo lady with autoimmune hepatitis previously followed by Dr. Honorio Westfall. Her other medical history is notable for SLE followed by rheumatology and prior tobacco use. She is doing well from a liver standpoint and has no interval history of hepatic decompensations, including infection, pruritus, encephalopathy, GI related bleeding, fluid overload. #. Autoimmune hepatitis #. Cirrhosis She is [...] lupus flares. - At risk for varices: She has not yet had an upper endoscopy to look for varices. She is amenable to having this done at this time. We will combine it with a colonoscopy as described below. While she does not have evidence of portal hypertension on exam, she does have slightly low platelets on her lab work. - At risk for HCC: last ultrasound [...] was known from prior. Repeat in 6 months. - At risk for encephalopathy: not present - At risk for hyponatremia: not present - At risk for volume overload: not present #. Bone mineral assessment: Given her smoking [...] scheduled for her at her follow-up visit. #. Diarrhea, chronic, watery #. Status post cholecystectomy At her last visit with GI, it was noted that she was dealing with epigastric discomfort and diarrhera, which had worsened since cholecystectomy. There was also an abnormal rectal exam with incomplete evacuation of stool on history. She did not undergo ARM. She was slated to undergo colonoscopy (also had been having rectal outlet bleeding). She was started on cholestyramine. Today, she describes to me loose watery stools that are occasionally associated with blood. She endorses constipation and feeling like she cannot empty her bowels. Anxiety [...] patient declined anorectal manometry at that time. I reviewed with Ms. bar for the utility of this test to help us delineate the cause of her combination of diarrhea and constipation. She was amenable to doing the anorectal manometry at this time. Given the watery stools and urgency and that her last colonoscopy was approximately 10 years ago I think that she would benefit from a colonoscopy for evaluation of microscopic colitis as well as for evaluation of colorectal cancer screening. Given that she has underlying autoimmune disease who it is reasonable to look for inflammatory bowel disease and thus I would like a terminal ileal exam as well. Finally, it is possible that she has in the setting of her status post cholecystectomy, bile acid diarrhea. I do not want empirically start cholestyramine now in case this makes her more constipated. So I will wait for the results of those tests before proceeding with any cholestyramine. In fact, if those tests are unremarkable I suspect that she is more likely to have an irritable bowel phenotyping would rather treat with fiber before proceeding with cholestyramine. Given that she also should be surveilled for esophageal varices, I will evaluate for small intestinal bacterial overgrowth and celiac disease as a cause of her diarrhea. Plan: - colonoscopy with TI exam and biopsies (perhaps in 2008); EGD with small bowel biopsies and aspirates - ARM #. Tobacco abuse (>30 years) Recently quit in Jul 15 2018. A copy of this note will be sent to the staff and bi consultant for this patient, Dr. Armenta. I will follow up with the results of the above studies by phone with the patient and her sister. Yony Joseph MD GI & hepatology fellow industrial methods consultant: Dr. Armenta documented in this encounter Plan of Treatment Upcoming Encounters Date Type Specialty Care Team Description 07/08/2022 Appointment Laboratory Medicine Pedro Donnelly, SIZER HAND, C.N.P. [address] [place] [phone] (Wo rk) 07/08/2022 Office Visit Gastroenterology and Collin Trivedi Hepatology Chloe [address] [place] [phone] (Wo rk) documented as of this encounter Results US Abdomen Complete (06/21/2019 [...] the right hepatic lobe 3. Splenomegaly. James B Maselli M.D. IMG US PROCEDURES Anorectal Manometry (12/24/2018 10:20 AM CDT) Narrative This result has an attachment that is no t available. James Joseph M.D. GI PROCEDURE ORDERABLES Performing Organization Address City/State/ZIP Code Phon e Number [facility] BMD Bone Density Spine Hips (12/22/2018 8:40 AM CDT) Anatomical Region Laterality Modality Hip, Lumbar Spine, Nuclear Medicine RST LOS, N/A Radiographic Imaging Musculoskeletal ARZ LOS, Muskuloskeletal FLA LOS Specimen (Source) Anatomical Collection Method Collection Time Re ceived Time Location / / Volume Laterality 12/22/2018 9:13 AM CDT Impressions 12/22/2018 9:13 AM CDT IMPRESSION: Osteopenia Narrative 12/22/2018 9:13 AM CDT EXAM: ??BMD BONE DENSITY SPINE HIPS COMPARISON: Serial Comparisons Left Total Hip results: ?08/26/2013 ?BMD: ??1.073 g/cm( sq), T Score: ??0.5 ?12/22/2018 ?BMD: ??1.015 g/cm( sq), T Score: ??0.1 ?Change vs. Previous (difference): ? -0.058 g/cm(sq) ?Change vs. Previous (%): ??-5.4% ?The least significant change in BM D for the Total Hip ?is 0.036 g/cm(sq) ?The absolute BMD change from basel ine, ??0.058g/cm(sq), is ?greater than the least significant change. Right Total Hip results: ?08/26/2013 ?BMD: ??1.003 g/cm( sq), T Score: ??0.0 ?12/22/2018 ?BMD: ??0.944 g/cm( sq), T Score: -0.5 ?Change vs. Previous (difference): ? -0.059 g/cm(sq) ?Change vs. Previous (%): ??-5.9% ?The least significant change in BM D for the Total Hip ?is 0.036 g/cm(sq) ?The absolute BMD change from basel ine, ??0.059g/cm(sq), is ?greater than the least significant change. Combined Total Hip results: ?08/26/2013 ?BMD: ??1.038 g/cm( sq), T Score: ??0.3 ?12/22/2018 ?BMD: ??0.980 g/cm( sq), T Score: -0.2 ?Change vs. Previous (difference): ? -0.058 g/cm(sq) ?Change vs. Previous (%): ??-5.6% ?The least significant change in BM D for the Total Hip ?is 0.036 g/cm(sq) ?The absolute BMD change from basel ine, ??0.058g/cm(sq), is ?greater than the least significant change. Spine results: ?08/26/2013 ?BMD: ??1.198 g/cm( sq), T Score: ??0.2 ?12/22/2018 ?BMD: ??1.140 g/cm( sq), T Score: -0.3 ?Change vs. Previous (difference): ? -0.058 g/cm(sq) ?Change vs. Previous (%): ??-4.8% ?The least significant change in BM D for the Spine is 0.041 g/cm(sq) ?The absolute BMD change from basel ine, ??0.058g/cm(sq), is ?greater than the least significant change. FINDINGS: Left Hip [single scan]: ?Femur Neck: BMD = ??0.900 g/cm (sq ) ?T-score = -1.0 ?Z-score = - 0.8 ?Total Hip: BMD = ??1.015 g/cm (sq) ?T-score = ??0.1 ?Z-score = -0.2 Right Hip [single scan]: ?Femur Neck: BMD = ??0.891 g/cm (sq ) ?T-score = -1.1 ?Z-score = - 0.8 ?Total Hip: BMD = ??0.944 g/cm (sq) ?T-score = -0.5 ?Z-score = - 0.7 Lumbar Spine ??[single scan]: ?L1: BMD = 1.150 g/cm (sq), T-score = 0.1, Z-score =-0.3 ?L2: BMD = 1.154 g/cm (sq), T-score =-0.5, Z-score =-0.9 ?L3: BMD = 1.120 g/cm (sq), T-score =-0.8, Z-score =-1.2 ?Total Lumbar Spine: BMD = ??1.140 g/cm (sq) ?T-score = -0.3 ?Z-score = - 0.8 Trabecular Bone Scores: ?L1-L3: TBS = 1.433 Please note: A more comprehensive DXA re port, including images and graphs, is available in [employer]. ?In the absence of other causes of low BMD or demonstrated skeletal ?fragility, osteoporosis may be martita gnosed in post-menopausal ? women when the T-score i s at or below -2.5 as defined by ?the WHO. Osteopenia is present at T-scores between -1 and -2.5 and ?normal BMD when T-score is at or a cm -1.0. The diagnosis in ?pre-menopausal women and men can b e based on low bone mass or ?evidence of skeletal fragility in the appropriate clinical setting. Based on the bone density results, and o n the patient's answers to the Fracture Risk Assessment questionnaire (please refer to appropria te image stored in the BMD study in [employer]), the calculated ten year probability of fracture is: FRAX Score Major Osteoporotic: 8.2% Hip Fracture: ? 0.8% Degenerative changes are present which m ay spuriously elevate the spine BMD measurement. Today's spine scan was compared with the previous scans using a new region, L1-L3. The TBS value is not guaranteed since th e BMI is outside the ideal range 15-37 kg/m2. Procedure Note Jorge Gomez M.D. - 12/22/2018Form atting of this note might be different from the original. EXAM: BMD BONE DENSITY SPINE HIPS COMPARISON: Serial Comparisons Left Total Hip results: 08/26/2013 BMD: 1.073 g/cm(sq), T Score : 0.5 12/22/2018 BMD: 1.015 g/cm(sq), T Score : 0.1 Change vs. Previous (difference): -0.05 8 g/cm(sq) Change vs. Previous (%): -5.4% The least significant change in BMD for the Total Hip is 0.036 g/cm(sq) The absolute BMD change from baseline, 0.058g/cm(sq), is greater than the least significant coto ge. Right Total Hip results: 08/26/2013 BMD: 1.003 g/cm(sq), T Score : 0.0 12/22/2018 BMD: 0.944 g/cm(sq), T Score : -0.5 Change vs. Previous (difference): -0.05 9 g/cm(sq) Change vs. Previous (%): -5.9% The least significant change in BMD for the Total Hip is 0.036 g/cm(sq) The absolute BMD change from baseline, 0.059g/cm(sq), is greater than the least significant coto ge. Combined Total Hip results: 08/26/2013 BMD: 1.038 g/cm(sq), T Score : 0.3 12/22/2018 BMD: 0.980 g/cm(sq), T Score : -0.2 Change vs. Previous (difference): -0.05 8 g/cm(sq) Change vs. Previous (%): -5.6% The least significant change in BMD for the Total Hip is 0.036 g/cm(sq) The absolute BMD change from baseline, 0.058g/cm(sq), is greater than the least significant coto ge. Spine results: 08/26/2013 BMD: 1.198 g/cm(sq), T Score : 0.2 12/22/2018 BMD: 1.140 g/cm(sq), T Score : -0.3 Change vs. Previous (difference): -0.05 8 g/cm(sq) Change vs. Previous (%): -4.8% The least significant change in BMD for the Spine is 0.041 g/cm(sq) The absolute BMD change from baseline, 0.058g/cm(sq), is greater than the least significant coto ge. FINDINGS: Left Hip [single scan]: Femur Neck: BMD = 0.900 g/cm (sq) T-score = -1.0 Z-score = -0.8 Total Hip: BMD = 1.015 g/cm (sq) T-score = 0.1 Z-score = -0.2 Right Hip [single scan]: Femur Neck: BMD = 0.891 g/cm (sq) T-score = -1.1 Z-score = -0.8 Total Hip: BMD = 0.944 g/cm (sq) T-score = -0.5 Z-score = -0.7 Lumbar Spine [single scan]: L1: BMD = 1.150 g/cm (sq), T-score = 0. 1, Z-score =-0.3 L2: BMD = 1.154 g/cm (sq), T-score =-0. 5, Z-score =-0.9 L3: BMD = 1.120 g/cm (sq), T-score =-0. 8, Z-score =-1.2 Total Lumbar Spine: BMD = 1.140 g/cm (s q) T-score = -0.3 Z-score = -0.8 Trabecular Bone Scores: L1-L3: TBS = 1.433 Please note: A more comprehensive DXA re port, including images and graphs, is available in [employer]. In the absence of other causes of low B MD or demonstrated skeletal fragility, osteoporosis may be diagnose d in post-menopausal women when the T-score is at or below -2.5 as defined by the WHO. Osteopenia is present at T-sco res between -1 and -2.5 and normal BMD when T-score is at or above -1.0. The diagnosis in pre-menopausal women and men can be bas ed on low bone mass or evidence of skeletal fragility in the a [facility] clinical setting. Based on the bone density results, and o n the patient's answers to the Fracture Risk Assessment questionnaire (please refer to appropria te image stored in the BMD study in [employer]), the calculated ten year probability of fracture is: FRAX Score Major Osteoporotic: 8.2% Hip Fracture: 0.8% Degenerative changes are present which m ay spuriously elevate the spine BMD measurement. Today's spine scan was compared with the previous scans using a new region, L1-L3. The TBS value is not guaranteed since th e BMI is outside the ideal range 15-37 kg/m2. IMPRESSION: Osteopenia James Joseph M.D. Nomi DXA PROCEDURES PT (Prothrombin Time) with INR (12/22/2018 7:35 AM CDT) [facility] Method Time Signature Prothrombin 12.0 9.4 - 12.5 12/22/2018 [facility] Time, P sec 8:08 AM [employer] [facility] INR 1.1 0.9 - 1.1 12/22/2018 [facility] 8:08 AM [employer] [facility] Comment: ----ADDITIONAL INFORMATION---- Standard intensity warfarin therapeutic range: 2.0 to 3.0 ?? High intensity warfarin therapeutic rang e: 2.5 to 3.5 Specimen Anatomical Collection Method Collection Time Receive d Time (Source) Location / / Volume Laterality Blood (Blood, 12/22/2018 7:35 AM 12/23/19 7:54 Venous) CDT AM CDT James Joseph M.D. LAB BLOOD ADD-ON Performing Organization Address City/State/ZIP Code Phon e Number [facility] - [address] [place], [place] [address] [facility] documented in this encounter Visit Diagnoses Diagnosis Diarrhea - Primary Pain Epigastric Incontinence Fecal Constipation Cirrhosis Alcoholic (HCC) Other Cirrhosis Of Liver (HCC) Other Cirrhosis Of Liver (HCC) Other Cirrhosis Of Liver (HCC) documented in this encounter
--- OUTSIDE RECORDS SUMMARY | 2022-05-22 16:08 | XMS_ITS | Encounter Summary ---
:1965 Author Organization [facility] Address [address] [place] [address] Care Team Providers Name Role Phone Unavailable Primary Care Provider Unavailable Reason for Referral Outpatient (Routine) - Closed Specialty Diagnoses / Procedures Referred By Contact Refer red To Contact Diagnoses Diarrhea Pain Epigastric James Joseph M.D. [facility] Procedures Colonoscopy [address] [place], [place] [address] Referral ID Status Reason Start Date Expiration Date Visits Requ ested Visits Authorized [id number] Closed 11/24/2018 11/24/2019 1 1 Outpatient (Routine) - Closed Specialty Diagnoses / Procedures Referred By Contact Refer red To Contact Diagnoses Diarrhea Pain Epigastric James Joseph M.D. [facility] Procedures EGD (EsophagealGastroDuodenoscopy) [address] [place] [address] Referral ID Status Reason Start Date Expiration Date Visits Requ ested Visits Authorized [id number] Closed 11/24/2018 11/24/2019 1 1 Reason for Visit Outpatient (Routine) - Closed Specialty Diagnoses / Procedures Referred By Contact Refer red To Contact Diagnoses Diarrhea Pain Epigastric James Joseph M.D. [facility] Procedures EGD (EsophagealGastroDuodenoscopy) [address] [place], [place] [address] Referral ID Status Reason Start Date Expiration Date Visits Requ rend Visits Authorized [id number] Closed 11/24/2018 11/24/2019 1 1 Encounter Details Date Type Department Care Team Description 12/22/2018 Hospital Encounter Division of James Joseph ea; Gastroenterology in Chloe Burgos Pain Epigastric [place], [place] [address] [place] [phone] Social History Tobacco Use Types Packs/Day Years [...] or slept in a mcc (including now)? Sex Assigned at Date Recorded Female 03/09/2018 3:30 PM CDT documented as of this encounter Last Filed Vital Signs Vital Sign Reading Time Taken Comments Blood Pressure 120/78 12/22/2018 2:45 PM CDT Pulse 94 12/22/2018 2:51 PM CDT Temperature 36.9 ??C (98.4 ??F) 12/22/2018 2:40 PM CDT Respiratory Rate 23 12/22/2018 2:52 PM CDT Oxygen Saturation 97% 12/22/2018 2:51 PM CDT Inhaled Oxygen Concentration - - Weight - - Height 162.6 cm (5' 4) 12/22/2018 12:42 PM CDT Body Mass Index - - documented in this encounter Medications at Time of Discharge Medication Sig Dispensed Refills Start Date End Date lisinopril-hydroCHLOROthi Take 1 tablet by 0 azide mouth daily. (PRINZIDE,ZESTORETIC) 20-25 mg per tablet calcium carbonate-vit Take 1 tablet by 0 [...] WEEK,THEN STOP documented as of this encounter H&P Notes Per Lugo M.B.B.S., MAyala - 12/22/2018 1:48 PM CDT ASSESSMENT / PLAN Patient Name: Vee Danielson Gastroenterology Procedure Department : DIVISION OF GASTROENTEROLOGY IN [place], [place] SUBJECTIVE Past Medical History: Diagnosis Date ??? Cirrhosis Nonalcoholic (HCC) ??? Depressive Disorder 2014 ??? Gallbladder Disorder 2014 ??? Hypertension NOS ??? Lupus Systemic Erythematosus (HCC) ??? Melanoma Skin (HCC) 2001 Past Surgical History: Procedure Laterality Date ??? CHOLECYSTECTOMY ??? GALLBLADDER SURGERY 2014 ??? ROBOTIC SINGLE SITE CHOLECYSTECTOMY N/A 05/08/2015 Robotic single site cholecystectomy OB History No data available Social History Social History ??? Marital status: Single Spouse name: N/A ??? Number of children: N/A ??? Years of education: N/A Social History Main Topics ??? Smoking status: Former Smoker Packs/day: 0.75 Years: 22.00 Types: Cigarettes Start date: 09/07/1986 ??? Smokeless tobacco: Former User ??? Alcohol use No ??? Drug use: No ??? Sexual activity: No Other Topics Concern ??? None Social History Narrative ??? None Ambulatory Infusion Pump/Implanted Joint Maker Machine- Peripheral IV Catheter 12/22/18 20 G Right Antecubital (Active) Site Assessment Clean;Dry;Intact 12/22/2018 1:42 PM Dressing Status Clean;Dry;Intact 12/22/2018 1:42 PM Peripheral IV Catheter 12/22/18 20 G Right Antecubital (Active) Site Assessment Clean;Dry;Intact 12/22/2018 1:42 PM Dressing Status Clean;Dry;Intact 12/22/2018 1:42 PM Nothing was implanted during the procedure OBJECTIVE Pain Score: 5 - Moderate pain (right side) Consents Obtained: written The benefits, risks, and alternatives to the procedure and the potential need for sedation or anesthesia as well as the names, roles and responsibilities of healthcare team members performing significant interventional tasks were discussed with the patient and/or decision maker: yes The following portions of the patient's history were reviewed and updated as appropriate: allergies,current medications, family history, medical history, social history and problem list. yes Review of systems: ROS not obtained Mallampati: II - soft palate, uvula, fauces visible Heart: normal Lung: normal ASA physical exam: class 2 - patient with mild systemic disease Sedation plan: moderate sedation Patient seen, evaluated and approved for sedation Baseline Behavior: Psychosocial (WDL): Within Defined Limits Abdominal Exam: Gastrointestinal (WDL): Within Defined Limits Abdomen Inspection: Soft Dental Information: Teeth: Intact documented in this encounter Plan of Treatment Upcoming Encounters Date Type Specialty Care Team Description 07/08/2022 Appointment Laboratory Medicine Pedro Donnelly APRN, C.N.P. [address] [place] [address] [place] [address] (Wo rk) 07/08/2022 Office Visit Gastroenterology and Collin Trivedi, Hepatology Chloe [address] [place] [address] (Wo rk) documented as of this encounter Procedures Procedure Name Priority Date/Time Associated Comments Diagnosis SURGICAL PATHOLOGY Routine 12/22/2018 2:04 PM Res ults for this CDT procedure are i n the results section. BACTERIAL CULTURE, Routine 12/22/2018 2:02 PM Res ults for this AEROBIC + SUSC CDT procedure are in the results section. BACTERIAL CULTURE, Routine 12/22/2018 2:02 PM Res ults for this ANAEROBIC + SUSC CDT procedure a re in the results section. UPPER GI ENDOSCOPY Routine 12/22/2018 1:46 PM Diarrhea Results for this CDT Pain Epigastric procedure ar e in the results section. EGD Routine 12/22/2018 1:46 PM Diarrhea (ESOPHAGEALGASTRODUOD CDT Pain Epigastric ENOSCOPY) COLONOSCOPY Routine 12/22/2018 1:25 PM Diarrhea Results for this CDT Pain Epigastric procedure ar e in the results section. COLONOSCOPY Routine 12/22/2018 1:25 PM Diarrhea CDT Pain Epigastric documented in this encounter Results Surgical Pathology (12/22/2018 2:04 PM CDT) Component Value Ref Test Analysis Performed At [facility] Range Method Time Signature Gross Description A: ?? Received in formalin labeled with the patie nt's name, 12/23/2018 [facility] medical record number, and duodenum-second part are five 12:04 PM LABORATORIES - pale waldron-pink irregular soft tissue fragment, ranging from CDT [facility] 0.2-0.7 cm in greatest dimension. Specimens are submitted CAMPUS en toto in cassette A1. Grossed by AV. B: ?? Received in formalin labeled with the patient's name, medical record number, and stomach-body and antrum-incisura are four pale waldron-pink irregular soft tissue fragments, ranging from 0.3-0.4 cm in greatest dimension. Specimens are submitted en toto in cassette B1. Grossed by AV. C: ?? Received in formalin labeled with the patient's name, medical record number, and colon-random sites are seven pale waldron-pink irregular soft tissue fragments, ranging from 0.2-0.6 cm in greatest dimension. Specimens are submitted en toto in cassette C1. Grossed by AV. Report Fermín Montanez M.D. [id number] 12/23/2018 [facility] electronically I verify that I have examined all relevant slides/ma terials 12:04 PM LABORATORIES - signed by for the specimen(s) and rendered or confirmed the diagnosi s. [facility] 12/23/2018 [facility] 12:04 PM LABORATORIES - CDT [facility] Interpretation FINAL DIAGNOSIS 12/23/2018 [facility] A. Duodenum, 2nd part duodenum, endoscopic biopsy: Duodena l 12:04 PM LABORATORIES - mucosa with mild chronic inflammation and reactive changes . T [facility] No dysplasia. CAMPUS B. Stomach, Body and Antrum, Incisura, endoscopic biopsy: Mild reactive gastropathy. Antral and fundic mucosa shows reactive foveolar hyperplasia, negligible inflammation, and no Helicobacter pylori. These changes suggest chemical-type injury such as can be seen with nonsteroidal anti-inflammatory drugs and bile reflux. C. Colon, Random Sites, endoscopic biopsy: Colonic mucosa without diagnostic abnormality. Specimen (Source) Anatomical Collection Method Collection Time Re ceived Time Location / / Volume Laterality Biopsy (Duodenum) 12/22/2018 2:04 PM CDT Biopsy (Stomach) 12/22/2018 2:06 PM CDT Biopsy (Colon) 12/22/2018 2:23 PM CDT Narrative This result has an attachment that is no t available. Per Cervantes M.D. LAB SURG PATH ORDERABLE S Performing Organization Address City/State/ZIP Code Phon e Number [facility] LABORATORIES - [address] [place], [place] [address] [facility] Bacterial Culture, Aerobic + Susc (12/22/2018 2:02 PM CDT) Patholo gist Method Time Signature Bacterial No growth of 12/24/2018 [facility] Culture, aerobic gram 7:58 AM CDT LABORATORIES - Aerobic + negative [facility] Susc bacillus or CAMPUS yeast Specimen (Source) Anatomical Collection Method Collection Time Re ceived Time Location / / Volume Laterality Aspirate 12/22/2018 2:02 PM (Duodenum) CDT Per Cervantes M.D. LAB MICROBIOLOGY - GENE RAL ORDERABLES Performing Organization Address [facility] Code Phon e Number [facility] LABORATORIES - [address] (ABNORMAL) Bacterial Culture, Anaerobic + Susc (12/22/2018 2:02 PM CDT) [facility] gist Method Time Signature Bacterial Total intestinal christie (anaerobic and/or aerobic) 12/24/2018 [facility] Culture, >100,000 cfu/mL 7:42 AM CDT LABORATORIES - Anaerobic + (A) [facility] Specimen (Source) Anatomical Collection Method Collection Time Re ceived Time Location / / Volume Laterality Aspirate 12/22/2018 2:02 PM (Duodenum) CDT Per Cervantes M.D. LAB MICROBIOLOGY - GENE DONNIE ORDERABLES Performing Organization Address [facility] Code Phon e Number [facility] LABORATORIES - [address] [place] [phone] [facility] Upper GI Endoscopy (12/22/2018 1:46 PM CDT) Specimen (Source) Anatomical Collection Method Collection Time Re ceived Time Location / / Volume Laterality 12/22/2018 1:46 PM CDT Impressions [facility] - 12/22/2018 2:34 PM CDT Post-op Diagnoses: ? - Normal esophagus. ? - Normal examined duodenum. Biops ied. Fluid aspiration performed. ? - One gastric polyp. Stomach biop sies obtained. Narrative [facility] - 12/22/2018 2:34 PM CDT [facility] 9 GI GI Patient Name: Vee Danielson Date of : 1965 Age: 53 Gender: Female Procedure Date: 12/22/2018 Procedure: ? Upper GI endoscopy Providers: ? Per Lugo MD Referring Provider: ?James Joseph MD Pre-op Diagnoses: ?Epigastric abdominal pain, Diarrhea Recommendation: ? - Return to referring physician a s previously scheduled. Findings: ? The esophagus was normal. ? The examined duodenum was normal. Biopsies for histology were taken with ? a cold forceps for evaluation of celiac disease. Fluid aspiration for ? bacterial cultures was performed. ? One 3 mm sessile polyp with no bl eeding and no stigmata of recent ? bleeding was found in the gastric fundus. with the appearance suggestive ? oif a cystic polyp. Biopsies were taken with a cold forceps for ? histology from normal appearing g astric mucosa. Procedural Details: ? The patient was seen, evaluated, history reviewed, airway and heart-lung ? exams were performed by licensed provider and were satisfactory for ? planned level of sedation care. ? The risks, benefits and alternati ves for the procedure and sedation were ? discussed and informed consent wa s obtained. A procedural pause was ? conducted in the presence of assi sting personnel to verify the correct ? patient identity and procedure to be performed. Throughout the ? procedure, the patient's blood pr essure, pulse, and oxygen saturations ? were monitored continuously. The Gastroscope was introduced under direct ? vision through the mouth, and adv anced to the third part of duodenum. ? The upper GI endoscopy was accomp lished without difficulty. The patient ? tolerated the procedure well. Complications: ? No immedia te complications. Sedation: ? Moderate (conscious) sedation was administered by the endoscopy nurse ? and supervised by the endoscopist . The patient's oxygen saturation, ? heart rate, blood pressure and re sponse to care were monitored. Total ? physician intraservice time was 3 6 minutes. Attending Participation: I personally pe rformed the entire procedure. Per Lugo MD 12/22/2018 2:34:04 PM This report has been signed electronical ly. Number of Addenda: 0 James Joseph M.D. GI PROCEDURE ORDERABLES Performing Organization Address City/State/ZIP Code Phon e Number [facility] NA Colonoscopy (12/22/2018 1:25 PM CDT) Specimen (Source) Anatomical Collection Method Collection Time Re ceived Time Location / / Volume Laterality 12/22/2018 1:25 PM CDT Impressions [facility] - 12/22/2018 2:37 PM CDT Post-op Diagnoses: ? - The entire examined colon is no rmal on direct and retroflexion views. ? - The examined portion of the ile um was normal. ? - Eight biopsies were obtained in the entire colon. Narrative [facility] - 12/22/2018 2:37 PM CDT Gonda 9 GI GI Patient Name: Vee Danielson Date of : 1965 Age: 53 Gender: Female Procedure Date: 12/22/2018 Procedure: ? Colonosc opy Providers: ? Per Lugo MD Referring Provider: ?James Joseph MD Pre-op Diagnoses: ?Clinically significant diarrhea of unexplained origin Recommendation: ? - Return to referring physician a s previously scheduled. ? - PATHOLOGY/MICROBIOLOGY FOLLOW-U P: The ordering provider is responsible ? for reviewing results from specim ens obtained during this endoscopic ? procedure and communicating the f indings to the patient. If guidance is ? needed for interpreting endoscopi c findings or pathology results, please ? consider a gastroenterology e-con sult. Findings: ? The entire examined colon appeare d normal on direct and retroflexion ? views. ? Eight biopsies were obtained in t he entire colon with cold forceps for ? histology. ? The terminal ileum appeared susie l. Procedural Details: ? The patient was seen, evaluated, history reviewed, airway and heart-lung ? exams were performed by licensed provider and were satisfactory for ? planned level of sedation care. ? The risks, benefits and alternati ves for the procedure and sedation were ? discussed and informed consent wa s obtained. A procedural pause was ? conducted in the presence of assi sting personnel to verify the correct ? patient identity and procedure to be performed. Throughout the ? procedure, the patient's blood pr essure, pulse, and oxygen saturations ? were monitored continuously. The Colonoscope was introduced under direct ? vision through the anus and advan kodak to 10 cm into the ileum. The ? ileocecal valve, the appendiceal orifice and the rectum were ? photographed. The colonoscopy was performed without difficulty. The ? patient tolerated the procedure w ell. The quality of the bowel ? preparation was good. The quality of the bowel preparation was evaluated ? using the BBPS ([place] Bowel Prep aration Scale) with scores of: Right ? Colon = 3, Transverse Colon = 3 a nd Left Colon = 3 (entire mucosa seen ? well with no residual staining, s mall fragments of stool or opaque ? liquid). The total BBPS score equ als 9. Complications: ? No immedia te complications. Sedation: ? Moderate (conscious) sedation was administered by the endoscopy nurse ? and supervised by the endoscopist . The patient's oxygen saturation, ? heart rate, blood pressure and re sponse to care were monitored. Total ? physician intraservice time was 3 6 minutes. Attending Participation: I was present a nd participated during the entire ? pro cedure, including non-tolbert portions. Per Lugo MD 12/22/2018 2:37:23 PM This report has been signed electronical ly. Number of Addenda: 0 James Joseph M.D. GI PROCEDURE ORDERABLES Performing Organization Address City/State/ZIP Code Phon e Number [employer] NA documented in this encounter Visit Diagnoses Diagnosis Diarrhea Pain Epigastric documented in this encounter Administered Medications Inactive Administered Medications - up to 3 most recent administrations Medication Order MAR Action Action Date Dose Rate Site fentaNYL injection (SUBLIMAZE) Given 12/22/2018 1:54 PM CDT 50 mcg intravenous, Code/trauma/sedation medication, Starting on Thu12/22/18 at 1354 fentaNYL injection (SUBLIMAZE) Given 12/22/2018 1:56 PM CDT 25 mcg intravenous, Code/trauma/sedation medication, Starting on Thu12/22/18 at 1356 fentaNYL injection (SUBLIMAZE) Given 12/22/2018 1:58 PM CDT 25 mcg intravenous, Code/trauma/sedation medication, Starting on Thu12/22/18 at 1358 fentaNYL injection (SUBLIMAZE) Given 12/22/2018 2:01 PM CDT 25 mcg intravenous, Code/trauma/sedation medication, Starting on Thu12/22/18 at 1401 fentaNYL injection (SUBLIMAZE) Given 12/22/2018 2:10 PM CDT 25 mcg intravenous, Code/trauma/sedation medication, Starting on Thu12/22/18 at 1410 fentaNYL injection (SUBLIMAZE) Given 12/22/2018 2:14 PM CDT 25 mcg intravenous, Code/trauma/sedation medication, Starting on Thu12/22/18 at 1414 fentaNYL injection (SUBLIMAZE) Given 12/22/2018 2:19 PM CDT 25 mcg intravenous, Code/trauma/sedation medication, Starting on Thu12/22/18 at 1419 lactated ringers New Bag 12/22/2018 1:47 PM CDT 20 mL/hr 20 mL/hr intravenous, Code/trauma/sedation continuous med, Starting on Thu12/22/18 at 1347 midazolam (PF) injection (VERSED) Given 12/22/2018 1:54 PM CDT 3 mg Code/trauma/sedation medication, Starting on Thu12/22/18 at 1354 midazolam (PF) injection (VERSED) Given 12/22/2018 1:56 PM CDT 1 mg Code/trauma/sedation medication, Starting on Thu12/22/18 at 1356 midazolam (PF) injection (VERSED) Given 12/22/2018 1:58 PM CDT 1 mg Code/trauma/sedation medication, Starting on Thu12/22/18 at 1358 midazolam (PF) injection (VERSED) Given 12/22/2018 2:01 PM CDT 1 mg Code/trauma/sedation medication, Starting on Thu12/22/18 at 1401 midazolam (PF) injection (VERSED) Given 12/22/2018 2:10 PM CDT 1 mg Code/trauma/sedation medication, Starting on Thu12/22/18 at 1410 midazolam (PF) injection (VERSED) Given 12/22/2018 2:14 PM CDT 1 mg Code/trauma/sedation medication, Starting on Thu12/22/18 at 1414 midazolam (PF) injection (VERSED) Given 12/22/2018 2:19 PM CDT 1 mg Code/trauma/sedation medication, Starting on Thu12/22/18 at 1419 documented in this encounter
--- OUTSIDE RECORDS SUMMARY | 2022-05-22 16:08 | XMS_ITS | Encounter Summary ---
:1965 Author Organization [facility] Address [address] [place] [address] Care Team Providers Name Role Phone Unavailable Primary Care Provider Unavailable Reason for Visit Reason Comments Med Refill Encounter Details Date Type Department Care Team Description 10/24/2018 Refill Division of Rheumatology in Pedro Donnelly APRN, Med Refill [place], [place] C.N.P. [address] [facility] [address] [place] [address] [place] [address] [phone] (Wo rk) Social History Tobacco Use Types [...] er 09/23/2021 How often do you attend pentecostalism or quaker services? Never 09/23/2021 Do you belong to any clubs or organizations such as No 09/23/2021 pentecostalism groups, unions, fraternal or athletic groups, or [...] Telephone Encounter - Arielle Carmen R.N. - 10/27/2018 12:12 PM LABORATORY TECHNOLOGIST Please review and refill if appropriate. Sending to you per rotation. Last visit: 08/26/18 (W/ Pedro Cony) Note states she should have prednisone on hand for flares butit looks like it was removed from her medication list. Do not reply to sender(Float Nurse) Please respond to the following inginisket pool(P RST U HARFORD NURSE) RATORY TECHNOLOGIST documented in this encounter Plan of Treatment Upcoming Encounters Date Type Specialty Care Team Description 07/08/2022 Appointment Laboratory Medicine Pedro Donnelly, ANTHONY, C.N.P. [address] [place] [phone] (Claudia vera) 07/08/2022 Office Visit Gastroenterology and Collin Trivedi Hepatology Chloe [address] [place] [phone] (Claudia vera) documented as of this encounter Visit Diagnoses Not on filedocumented in this encounter
--- OUTSIDE RECORDS SUMMARY | 2022-05-22 16:08 | XMS_ITS | Encounter Summary ---
:1965 Author Organization [facility] Address [address] [place] [address] Care Team Providers Name Role Phone Unavailable Primary Care Provider Unavailable Encounter Details Date Type Department Care Team Description 08/26/2018 Orders Only Division of Rheumatology in Leticia Echols [place], [place] [address] [place] [address] Social History Tobacco Use Types Packs/Day [...] How often do you attend alevism or yarsanism services? Never 09/23/2021 Do you [...] or slept in a halfway (including now)? Sex Assigned at Date Recorded Female 03/09/2018 3:30 PM CDT documented as of this encounter Plan of Treatment Upcoming Encounters Date Type Specialty Care Team Description 07/08/2022 Appointment Laboratory Medicine Pedro Donnelly, BILINGUAL SALES REPRESENTATIVE, C.N.P. [address] [place] [phone] (Wo rk) 07/08/2022 Office Visit Gastroenterology and Collin Trivedi, Hepatology Chloe [address] [place] [phone] (Wo rk) documented as of this encounter Visit Diagnoses Not on filedocumented in this encounter
--- OUTSIDE RECORDS SUMMARY | 2022-05-22 16:08 | XMS_ITS | Encounter Summary ---
:1965 Author Organization [facility] Address [address] [place] [address] Care Team Providers Name Role Phone Unavailable Primary Care Provider Unavailable Reason for Referral Outpatient (Routine) - Closed Specialty Diagnoses / Procedures Referred By Contact Refer red To Contact Rheumatology Pedro Donnelly APR N, C.N.P. [address] [phone] Referral ID Status Reason Start Date Expiration Date Visits Requ ested Visits Authorized [id number] Closed 08/26/2018 08/26/2019 1 1 S SERVICE REP Reason for Visit Outpatient (Routine) - Closed Specialty Diagnoses / Procedures Referred By Contact Refer red To Contact Rheumatology Pedro Donnelly APR N, C.N.P. [address] [phone] Referral ID Status Reason Start Date Expiration Date Visits Requ ested Visits Authorized [id number] Closed 05/13/2018 05/13/2019 1 1 Encounter Details Date Type Department Care Team Description 08/26/2018 Office Visit Division of Pedro Donnelly, Lupus Syste mar Rheumatology in [place], C.N.P. Erythematosus ([facility]) [place], [place] [address] [place] [address] (Primary Dx) [address] [place] [phone] Social History Tobacco Use Types Packs/Day Years [...] How often do you attend shinto or protestant services? Never 09/23/2021 Do you [...] or slept in a residential (including now)? Sex Assigned at Date Recorded Female 03/09/2018 3:30 PM CDT documented as of this encounter Last Filed Vital Signs Vital Sign Reading Time Taken Comments Blood Pressure 164/74 08/26/2018 8:50 AM SALES SERVICE REP Pulse 72 08/26/2018 8:50 AM SALES SERVICE REP Temperature 36.4 ??C (97.5 ??F) 08/26/2018 8:50 AM SALES SERVICE REP Respiratory Rate - - Oxygen Saturation - - Inhaled Oxygen Concentration - - Weight 105 kg (232 lb 2.3 oz) 08/26/2018 8:50 AM SALES SERVICE REP Height 165.6 cm (5' 5.2) 08/26/2018 8:50 AM SALES SERVICE REP Body Mass Index 38.4 08/26/2018 8:50 AM SALES SERVICE REP documented in this encounter Progress Notes ConyPedro hunt APRN, RobertNSarinaP. - 08/26/2018 8:45 AM CST SUBJECTIVE CHIEF COMPLAINT / REASON FOR [...] autoimmune hepatitis. She indicates today that she had good results from the prednisone taper. She had improvement in joint pain and muscle weakness. She in retrospect believes the flare was probably caused by sun exposure.She has not had any rashes. She continues with azathioprine 3 tablets daily which she tolerating well. She did quit smoking July 15. She has gained some weight but not as much as she was anticipating. She reports that her gastrointestinal issues are improved. Previous Reports Reviewed:historical medical records, lab reports and office notes The following portions of the patient's history were reviewed and updated as appropriate: allergies,current medications, medical history and problem list. REVIEW OF SYSTEMS Pertinent positives and negatives as documented in the above history of present illness. REVIEW OF SYSTEMS OBJECTIVE PHYSICAL EXAM Constitutional: She is oriented [...] No synovitis noted on clinical exam today. Neurological: She is alert and oriented to [...] today's visit were reviewed with the patient. Her CBC remained stable with previous values from March. Platelets remain low at 99 and white count remains low at 2.7. Creatinine is normal as is the AST. Complements and double-stranded DNA still pending. Urinalysis is negative for any abnormal protein. Disease Activity SLEDAI ASSESSMENT / PLAN #1 Lupus Systemic Erythematosus (HCC) #2 Hepatitis Autoimmune (HCC) Laboratory studies were reviewed in detail. She appears to be much improved. She does have prednisone taper on hand if she should need it for any future flares. She will continue with azathioprine 150 mg daily along with appropriate laboratory monitoring. She will be back here to see Gastroenterology in 2 months I will try to coordinate lab monitoring with that visit. I will plan to see her back in 6months or sooner if necessary. #3 Smoking cessation I congratulated her having quit use of tobacco July 15 encouraged her to continue with her efforts. #4 High Risk Medication She will continue with appropriate laboratory monitoring every 2 months while she remains on azathioprine. PATIENT EDUCATION Ready to learn, no apparent learning barriers were identified; learning preferences include listening. Explained diagnosis and treatment plan; patient expressed understanding of the content. S SERVICE REP documented in this encounter Plan of Treatment Upcoming Encounters Date Type Specialty Care Team Description 07/08/2022 Appointment Laboratory Medicine Pedro Donnelly APRN, C.N.P. [address] [place] [phone] (Claudia vera) 07/08/2022 Office Visit Gastroenterology and Collin Trivedi Hepatology Chloe [address] [place] [phone] (Claudia vera) Scheduled Referrals Name Type Priority Associated Order Schedule Diagnoses Rheumatology office Outpatient Referral Routine E xpected: visit (clinic) 02/24/2019 (Approximate), Expires: 08/26/2021 documented as of this encounter Results Urinalysis with Microscopic: Urine, Clean Catch (03/11/2019 7:47 AM CDT) [facility] Method Time Signature Source Midstream 03/11/2019 7:47 AM CDT Appearance Normal Normal 03/11/2019 8:36 AM CDT Osmolality, U 561 150 - 1150 03/11/2019 mOsm/kg 9:36 AM CDT pH, U 5.5 4.5 - 8.0 03/11/2019 9:36 AM CDT Comment: ----ADDITIONAL INFORMATION---- This test was developed and its performa nce characteristics determined by [facility] in a manner co nsistent with CLIA requirements. This test has not bee n cleared or approved by the U.S. Food and Drug Admin istration. Glucose 3 0 - 15 mg/dL 03/11/2019 8:36 AM CDT Protein, U 12 <26 mg/dL 03/11/2019 8:36 AM CDT Comment: ----ADDITIONAL INFORMATION---- On 03/03/2017 the total protein assay me thod changed resulting in approximately a 15% increase in prote in values. Protein/Osmolality 0.21 <0.42 Ratio 03/11/2019 9:36 AM CDT Comment: ----ADDITIONAL INFORMATION---- On 03/03/2017 the total protein assay me thod changed resulting in approximately a 15% increase in prote in values. Predicted 24 Hr Protein 165 mg/24 h 03/11/2019 9:36 AM CDT Predicted Range 41-668 mg/24 h 03/11/2019 9:36 AM CDT Hemoglobin, QL Negative Negative 03/11/2019 9:32 AM CDT Specimen Anatomical Collection Method Collection Time Receive d Time (Source) Location / / Volume Laterality Urine (Urine, 03/11/2019 7:47 AM 03/11/20 19 7:47 Clean Catch) CDT AM CDT Pedro Donnelly APRN, C.N.P. LAB URINE ORDERABLES Performing Organization Address City/State/ZIP Code Phon e Number [facility] - [address] [place], [place] [address] [facility] ALT (Alanine Aminotransferase) (03/11/2019 6:17 AM CDT) [facility] Method Time Signature Alanine 15 7 - 45 03/11/2019 Aminotransferase U/L 7:12 AM CDT (ALT), S Specimen Anatomical Collection Method Collection Time Receive d Time (Source) Location / / Volume Laterality Blood (Blood, 03/11/2019 6:17 AM 03/11/20 19 6:27 Venous) CDT AM CDT Apolonia Kumar APRN.N.P. LAB BLOOD ADD-ON Performing Organization Address City/[facility] Code Phon e Number [facility] - [address] [place] [address] [facility] AST (Aspartate Aminotransferase) (03/11/2019 6:17 AM CDT) [facility] Method Time Signature Aspartate 17 8 - 43 03/11/2019 Aminotransferase U/L 7:12 AM CDT (AST), S Specimen Anatomical Collection Method Collection Time Receive d Time (Source) Location / / Volume Laterality Blood (Blood, 03/11/2019 6:17 AM 03/11/20 19 6:27 Venous) CDT AM CDT Pedro Donnelly APRN, Apolonia.N.P. LAB BLOOD ADD-ON Performing Organization Address City/[facility] Phon e Number [facility] - [address] [place] [address] [facility] (ABNORMAL) Complement, Total (03/11/2019 6:17 AM CDT) athologist [facility] Complement, 17 (L) 30 - 75 03/14/2019 Total, S U/mL 2:18 PM CDT Specimen Anatomical Collection Method Collection Time Receive d Time (Source) Location / / Volume Laterality Blood (Blood, 03/11/2019 6:17 AM 03/14/20 19 9:09 Venous) CDT AM CDT Pedro Donnelly APRN, Apolonia.N.P. LAB BLOOD NON ADD-ON Performing Organization Address City/[facility] Phon e Number [facility] [address] [place] [address] [facility] (ABNORMAL) Complement C4 (03/11/2019 6:17 AM CDT) athologist Signature Complement C4, <3 (L) 14 - 40 03/11/2019 S mg/dL 3:05 PM CDT Specimen Anatomical Collection Method Collection Time Receive d Time (Source) Location / / Volume Laterality Blood (Blood, 03/11/2019 6:17 AM 03/11/20 19 8:38 Venous) CDT AM CDT Apolonia Kumar APRN.N.P. LAB BLOOD ADD-ON Performing Organization Address City/[facility]/ZIP Code Phon e Number [address] [place] [address] [facility] Complement C3 (03/11/2019 6:17 AM CDT) athologist Signature Complement C3, S 79 75 - 175 03/11/2019 mg/dL 2:12 PM CDT Specimen Anatomical Collection Method Collection Time Receive d Time (Source) Location / / Volume Laterality Blood (Blood, 03/11/2019 6:17 AM 03/11/20 19 8:38 Venous) CDT AM CDT Apolonia Kumar APRN.N.P. LAB BLOOD ADD-ON Performing Organization Address City/[facility] Code Phon e Number [address] [place] [address] [facility] DNA Double-Stranded (dsDNA) Antibodies, IgG (03/11/2019 6:17 AM CDT) athologist Signature DNA 23.0 <30.0 03/11/2019 Double-Stranded (Negative) 4:15 PM CDT Ab, IgG, S IU/mL Specimen Anatomical Collection Method Collection Time Receive d Time (Source) Location / / Volume Laterality Blood (Blood, 03/11/2019 6:17 AM 03/11/20 19 8:35 Venous) CDT AM CDT Pedro Donnelly APRN, Apolonia.N.P. LAB BLOOD ADD-ON Performing Organization Address City/[facility]/ZIP Code Phon e Number [address] [place] [address] [facility] (ABNORMAL) Creatinine with Estimated GFR (03/11/2019 6:17 AM CDT) Analysis Performed At Patho logist Time Signature Creatinine 1.23 (H) 0.59 - 03/11/2019 1.04 mg/dL 7:12 AM CDT eGFR-Non 50 (L) >=60 03/11/2019 Black/ mL/min/BSA 7:12 AM CDT [place] Comment: ----ADDITIONAL INFORMATION---- Estimated GFR calculated using the 2009 CKD_EPI creatinine equation. eGFR-Black/ 57 (L) >=60 mL/min/BSA 2018 7:12 AM CDT Comment: ----ADDITIONAL INFORMATION---- Estimated GFR calculated using the 2009 CKD_EPI creatinine equation. Specimen Anatomical Collection Method Collection Time Receive d Time (Source) Location / / Volume Laterality Blood (Blood, 03/11/2019 6:17 AM 03/11/20 19 6:27 Venous) CDT AM CDT Pedro Donnelly APRN, Apolonia.N.P. LAB BLOOD ADD-ON Performing Organization Address City/[facility]/ZIP Code Phon e Number [facility] - [address] CRP (C-Reactive Protein) (03/11/2019 6:17 AM CDT) P athologist Signature C-Reactive 4.7 <=8.0 mg/L 03/11/2019 Protein (CRP), 7:12 AM CDT S Specimen Anatomical Collection Method Collection Time Receive d Time (Source) Location / / Volume Laterality Blood (Blood, 03/11/2019 6:17 AM 03/11/20 19 6:27 Venous) CDT AM CDT Pedro Donnelly APRN, Apolonia.N.P. LAB BLOOD ADD-ON Performing Organization Address City/[facility]/ZIP Code Phon e Number [facility] - [address] (ABNORMAL) Sedimentation Rate (03/11/2019 6:17 AM CDT) Patholo gist Method Time Signature Sedimentation 81 (H) 0 - 29 03/11/2019 Rate, B mm/1 h 7:36 AM CDT Specimen Anatomical Collection Method Collection Time Receive d Time (Source) Location / / Volume Laterality Blood (Blood, 03/11/2019 6:17 AM 03/11/20 19 6:27 Venous) CDT AM CDT Pedro Donnelly APRN, C.N.P. LAB BLOOD ADD-ON Performing Organization Address City/[facility]/ZIP Code Phon e Number [facility] - [address] [place], [place] [address] [facility] (ABNORMAL) CBC with Differential, Blood (03/11/2019 6:17 AM CDT) [facility] Method Time Signature Hemoglobin 10.2 (L) 11.6 - 03/11/2019 15.0 g/dL 6:34 AM CDT Hematocrit 28.1 (L) 35.5 - 03/11/2019 44.9 % 6:34 AM CDT Erythrocytes 2.77 (L) 3.92 - 03/11/2019 5.13 6:34 AM CDT x10(12)/L MCV 101.4 (H) 78.2 - 03/11/2019 97.9 fL 6:34 AM CDT RBC Distrib Width 21.2 (H) 12.2 - 03/11/2019 16.1 % 6:34 AM CDT Platelet Count 116 (L) 157 - 371 03/11/2019 x10(9)/L 6:34 AM CDT Leukocytes 4.5 3.4 - 9.6 03/11/2019 x10(9)/L 6:34 AM CDT Neutrophils 3.49 1.56 - 03/11/2019 6.45 6:34 AM CDT x10(9)/L Lymphocytes 0.72 (L) 0.95 - 03/11/2019 3.07 6:34 AM CDT x10(9)/L Monocytes 0.27 0.26 - 03/11/2019 0.81 6:34 AM CDT x10(9)/L Eosinophils 0.03 0.03 - 03/11/2019 0.48 6:34 AM CDT x10(9)/L Basophils <0.03 0.01 - 03/11/2019 0.08 6:34 AM CDT x10(9)/L Specimen Anatomical Collection Method Collection Time Receive d Time (Source) Location / / Volume Laterality Blood (Blood, 03/11/2019 6:17 AM 03/11/20 19 6:27 Venous) CDT AM CDT Pedro Donnelly APRN, C.N.P. LAB BLOOD ADD-ON Performing Organization Address City/State/ZIP Code Phon e Number [facility] - [address] [place], [place] [address] [facility] documented in this encounter Visit Diagnoses Diagnosis Lupus Systemic Erythematosus (HCC) - Afia justice documented in this encounter
--- OUTSIDE RECORDS SUMMARY | 2022-05-22 16:08 | XMS_ITS | Encounter Summary ---
:1965 Author Organization [facility] Address [address] [place] [address] Care Team Providers Name Role Phone Unavailable Primary Care Provider Unavailable Encounter Details Date Type Department Care Team Description 11/24/2018 Hospital Encounter Department of Geovany, Cirrhosi s Nonalcoholic (HCC); Laboratory Medicine Rose Marie Madrigal Hepatitis Autoimmune (HCC) and Pathology, [address] [place] [address], in [place], [place] [address] [place] [address] [place], [place] (Work) [phone] Social History Tobacco Use Types Packs/Day Years [...] How often do you attend temple or mormon services? Never 09/23/2021 Do you [...] Description 07/08/2022 Appointment Laboratory Medicine Pedro Donnelly, OTHER SPATIAL SCIENTIST, C.N.P. [address] [place] [phone] (Claudia rk) 07/08/2022 Office Visit Gastroenterology and Collin Trivedi Hepatology MAyala [address] [place] [phone] (Claudia rk) documented as of this encounter Procedures Procedure Name Priority Date/Time Associated Diagnosis Comme nts HEPATIC FUNCTION Routine 11/24/2018 7:15 Cirrhosis Results for this PANEL, S AM CDT Nonalcoholic (HC C) procedure are in Hepatitis Autoimmune the res ults (HCC) section. CBC NO CALL BACK, Routine 11/24/2018 7:15 Cirrhosis Results for this REFLEX T/S AM CDT Nonalcoholic (HC C) procedure are in Hepatitis Autoimmune the res ults (HCC) section. AFP L3% AND TOT, Routine 11/24/2018 7:15 Cirrhosis Results for this HEPATOCELLULAR AM CDT Nonalcoholic (HC C) procedure are in CARCINOMA TM, S Hepatitis Autoimmune the results (HCC) section. PROTHROMBIN TIME (PT), Routine 11/24/2018 7:15 Cirrhosis Re sults for this P AM CDT Nonalcoholic (HC C) procedure are in Hepatitis Autoimmune the res ults (HCC) section. IMMUNOGLOBULIN G Routine 11/24/2018 7:15 Cirrhosis Results for this (IGG), S AM CDT Nonalcoholic (HC C) procedure are in Hepatitis Autoimmune the res ults (HCC) section. BASIC METABOLIC PANEL, Routine 11/24/2018 7:15 Cirrhosis Re sults for this S/P AM CDT Nonalcoholic (HC C) procedure are in Hepatitis Autoimmune the res ults (HCC) section. documented in this encounter Results Immunoglobulin G (IgG) (11/24/2018 7:15 AM CDT) [facility] Method Time Signature Immunoglobulin G 1450 767 - 1590 11/24/2018 [facility] (IgG), S mg/dL 12:31 PM CDT [facility] Specimen Anatomical Collection Method Collection Time Receive d Time (Source) Location / / Volume Laterality Blood (Blood, 11/24/2018 7:15 AM 11/25/19 19 9:31 Venous) CDT AM CDT Rohan Armenta M.D. LAB BLOOD ADD-ON Performing Organization Address City/State/ZIP Code Phon e Number [facility] [address] [place], [place] [address]ENTER Prothrombin Time (PT/INR) (11/24/2018 7:15 AM CDT) [facility] Method Time Signature Prothrombin 11.4 9.4 - 12.5 11/24/2018 [facility] Time, P sec 7:52 AM CDT [facility] INR 1.0 0.9 - 1.1 11/24/2018 [facility] 7:52 AM CDT LABORATORIES [facility] Comment: ----ADDITIONAL INFORMATION---- Standard intensity warfarin therapeutic range: 2.0 to 3.0 ?? High intensity warfarin therapeutic rang e: 2.5 to 3.5 Specimen Anatomical Collection Method Collection Time Receive d Time (Source) Location / / Volume Laterality Blood (Blood, 11/24/2018 7:15 AM 11/25/19 19 7:36 Venous) CDT AM CDT Rohan Armenta M.D. LAB BLOOD ADD-ON Performing Organization Address City/[facility] Phon e Number [facility] LABORATORIES - [address] [place] [address] [facility] Hepatic Function Panel (11/24/2018 7:15 AM CDT) [facility] Method Time Signature Bilirubin, Total, S 0.8 <=1.2 11/24/2018 [facility] mg/dL 8:30 AM CDT LABORATORIES - [facility] Bilirubin, Direct, S 0.2 0.0 - 0.3 11/24/2018 [facility] mg/dL 8:30 AM CDT LABORATORIES - [facility] Aspartate 26 8 - 43 11/24/2018 [facility] Aminotransferase U/L 8:30 AM CDT LABORATORIE S - (AST), S [facility] Alanine 13 7 - 45 11/24/2018 [facility] Aminotransferase U/L 8:30 AM CDT LABORATORIE S - (ALT), S [facility] Alkaline 93 35 - 104 11/24/2018 [facility] Phosphatase, S U/L 8:30 AM CDT LABORATORIES - [facility] Albumin, S 4.2 3.5 - 5.0 11/24/2018 [facility] g/dL 8:30 AM CDT LABORATORIES - [facility] Protein, Total, S 7.3 6.3 - 7.9 11/24/2018 [facility] g/dL 8:30 AM CDT LABORATORIES - [facility] Specimen Anatomical Collection Method Collection Time Receive d Time (Source) Location / / Volume Laterality Blood (Blood, 11/24/2018 7:15 AM 11/25/19 19 7:36 Venous) CDT AM CDT Rohan Armenta M.D. LAB BLOOD ADD-ON Performing Organization Address City/[facility] Phon e Number [facility] LABORATORIES - [address] [place] [address] [facility] (ABNORMAL) CBC no call back, reflex T/S HGB <8 (11/24/2018 7:15 AM CDT) [facility] Method Time Signature Hemoglobin 11.9 11.6 - 11/24/2018 [facility] 15.0 g/dL 7:53 AM CDT LABORATORIES - [facility] Hematocrit 33.4 (L) 35.5 - 11/24/2018 [facility] 44.9 % 7:53 AM CDT LABORATORIES - [facility] Erythrocytes 3.58 (L) 3.92 - 11/24/2018 [facility] 5.13 7:53 AM CDT LABORATORIES - x10(12)/L [facility] MCV 93.3 78.2 - 11/24/2018 [facility] 97.9 fL 7:53 AM CDT LABORATORIES - [facility] RBC Distrib 17.7 (H) 12.2 - 11/24/2018 [facility] Width 16.1 % 7:53 AM CDT LABORATORIES - [facility] Platelet Count 115 (L) 157 - 371 11/24/2018 [facility] x10(9)/L 7:53 AM CDT LABORATORIES - [facility] Leukocytes 3.6 3.4 - 9.6 11/24/2018 [facility] x10(9)/L 7:53 AM CDT LABORATORIES - [facility] Neutrophils 2.55 1.56 - 11/24/2018 [facility] 6.45 7:53 AM CDT LABORATORIES - x10(9)/L [facility] Lymphocytes 0.69 (L) 0.95 - 11/24/2018 [facility] 3.07 7:53 AM CDT LABORATORIES - x10(9)/L [facility] Monocytes 0.28 0.26 - 11/24/2018 [facility] 0.81 7:53 AM CDT LABORATORIES - x10(9)/L [facility] Eosinophils 0.06 0.03 - 11/24/2018 [facility] 0.48 7:53 AM CDT LABORATORIES - x10(9)/L [facility] Basophils <0.03 0.01 - 11/24/2018 [facility] 0.08 7:53 AM CDT LABORATORIES - x10(9)/L [facility] Specimen Anatomical Collection Method Collection Time Receive d Time (Source) Location / / Volume Laterality Blood (Blood, 11/24/2018 7:15 AM 11/25/19 19 7:36 Venous) CDT AM CDT Rohan Armenta M.D. LAB BLOOD NON ADD-ON Performing Organization Address City/State/ZIP Code Phon e Number [facility] - [address] [place], [place] [address] [facility] Basic Metabolic Panel (11/24/2018 7:15 AM CDT) Analysis Performed At Patho logist Time Signature Potassium, S 4.5 3.6 - 5.2 11/24/2018 [facility] mmol/L 8:30 AM CDT [facility] Sodium, S 143 135 - 145 11/24/2018 [facility] mmol/L 8:30 AM CDT [facility] Chloride, S 103 98 - 107 11/24/2018 [facility] mmol/L 8:30 AM CDT [facility] Bicarbonate, S 28 22 - 29 11/24/2018 [facility] mmol/L 8:30 AM CDT [facility] Anion Gap 12 7 - 15 11/24/2018 [facility] 8:30 AM CDT [facility] BUN (Blood Urea 13 6 - 21 11/24/2018 [facility] Nitrogen), S mg/dL 8:30 AM T [facility] Creatinine 0.82 0.59 - 11/24/2018 [facility] 1.04 mg/dL 8:30 AM T [facility] eGFR-Non 81 >=60 11/24/2018 [facility] Black/ mL/min/BSA 8:30 AM CDT LABORATORIES [facility] Comment: ----ADDITIONAL INFORMATION---- Estimated GFR calculated using the 2009 CKD_EPI creatinine equation. eGFR-Black/ >90 >=60 mL/min/BSA 11/24/2018 8:30 [facility] Portuguese CDT [facility] Comment: ----ADDITIONAL INFORMATION---- Estimated GFR calculated using the 2009 CKD_EPI creatinine equation. Calcium, Total, S 9.0 8.6 - 10.0 mg/dL 11/24/2018 8:30 AM [facility] CDT [facility] Glucose, S 96 70 - 140 mg/dL 11/24/2018 8:30 AM [facility] CDT [facility] Specimen Anatomical Collection Method Collection Time Receive d Time (Source) Location / / Volume Laterality Blood (Blood, 11/24/2018 7:15 AM 11/25/19 19 7:36 Venous) CDT AM CDT Rohan Armenta M.D. LAB BLOOD ADD-ON Performing Organization Address City/State/ZIP Code Phon e Number [facility] LABORATORIES - [address] [place] [address] [facility] AFP (Alpha-Fetoprotein) L3% and Total, Hepatocellular Carcinoma Tumor Marker (11/24/2018 7:15 AM CDT) P athologist Signature Total AFP, S 2.4 ng/mL 11/24/2018 [facility] 3:23 PM CDT [facility] %L3 <1.0 <10 % 11/24/2018 [facility] 3:23 PM CDT [facility] Comment: ----ADDITIONAL INFORMATION---- The testing method is isotachophoresis w ith laser-induced fluorescence manufactured by [employer] and performed on the i30. ? Values obtained with different assay met hods or kits may be different and cannot be used inte rchangeably. ? Test results cannot be interpreted as ab solute evidence for the presence or absence of malignant disease. ? Alpha-Fetoprotein and L3% values are not interpretable during for the investigation o f malignant disease. Specimen Anatomical Collection Method Collection Time Receive d Time (Source) Location / / Volume Laterality Blood (Blood, 11/24/2018 7:15 AM 11/25/19 19 Venous) CDT 11:02 AM CDT Rohan Armenta M.D. LAB BLOOD ADD-ON Performing Organization Address City/State/ZIP Code Phon e Number [facility] [address] [place], [place] [address] [facility] documented in this encounter Visit Diagnoses Diagnosis Cirrhosis Nonalcoholic (HCC) Hepatitis Autoimmune (HCC) documented in this encounter
--- OUTSIDE RECORDS SUMMARY | 2022-05-22 16:08 | XMS_ITS | Encounter Summary ---
:1965 Author Organization [facility] Address [address] [place] [address] Care Team Providers Name Role Phone Unavailable Primary Care Provider Unavailable Reason for Referral Outpatient (Routine) - Closed Specialty Diagnoses / Referred By Referred To Cont act Procedures Contact [facility] Chloe [address] [place] [phone] Referral ID Status Reason Start Date Expiration Date Visits Requ ested Visits Authorized [id number] Closed 10/13/2018 10/13/2019 1 1 [employer] Encounter Details Date Type Department Care Team Description 10/13/2018 Orders Only Division of Geovany, Cirrhosis Nonal coholic (HCC) (Primary Dx); Gastroenterology in [place] Madrigal Hepatitis Autoimmune (HCC) [place], [place] [address] [facility] [address] [place] [phone] Social History Tobacco Use Types Packs/Day Years [...] How often do you attend pentecostal or congregational services? Never 09/23/2021 Do you [...] slept in a senior care (including now)? Sex Assigned at Date Recorded Female 03/09/2018 3:30 PM CDT documented as of this encounter Plan of Treatment Upcoming Encounters Date Type Specialty Care Team Description 07/08/2022 Appointment Laboratory Medicine Pedro Donnelly, HEAD MILLER, C.N.P. [address] [place] [phone] (Claudia vera) 07/08/2022 Office Visit Gastroenterology and Collin Trivedi Hepatology M.DSarina [address] [place] [address] (Claudia vera) Scheduled Referrals Name Type Priority Associated Order Schedule Diagnoses Gastroenterology and Outpatient Routine Expecte d: Hepatology office visit Referral 11/06 (clinic) (Approximate), Expires: 10/13/2019 documented as of this encounter Results US Abdomen Complete (11/24/2018 [...] in the right hepatic lobe inferiorly. Rohan Armenta M.D. IMG US PROCEDURES Immunoglobulin G (IgG) (11/24/2018 7:15 AM CDT) [facility] Signature Immunoglobulin G 1450 767 - 1590 11/24/2018 [facility] (IgG), S mg/dL 12:[address] [facility] Specimen Anatomical Collection Method Collection Time Receive d Time (Source) Location / / Volume Laterality Blood (Blood, 11/24/2018 7:15 AM 11/25/19 19 9:31 Venous) CDT AM CDT Rohan Armenta M.D. LAB BLOOD ADD-ON Performing Organization Address City/[facility] Phon e Number [facility] [address] [place], [place] [address] [facility] Prothrombin Time (PT/INR) (11/24/2018 7:15 AM CDT) [facility] Signature Prothrombin 11.4 9.4 - 12.5 11/24/2018 ED [facility] Time, P sec 7:52 AM CDT LABORATORIES [facility] INR 1.0 0.9 - 1.1 11/24/2018 ED [facility] 7:52 AM CDT [facility] Comment: ----ADDITIONAL INFORMATION---- Standard intensity warfarin therapeutic range: 2.0 to 3.0 ?? High intensity warfarin therapeutic rang e: 2.5 to 3.5 Specimen Anatomical Collection Method Collection Time Receive d Time (Source) Location / / Volume Laterality Blood (Blood, 11/24/2018 7:15 AM 11/25/19 19 7:36 Venous) CDT AM CDT Rohan Armenta M.D. LAB BLOOD ADD-ON Performing Organization Address City/State/ZIP Code Phon e Number ED [facility] LABORATORIES - [address] [place] [address] 05 [facility] Hepatic Function Panel (11/24/2018 7:15 AM CDT) [facility] Signature Bilirubin, Total, S 0.8 <=1.2 11/24/2018 [facility] mg/dL 8:30 AM CDT LABORATORIES [facility] Bilirubin, Direct, S 0.2 0.0 - 0.3 11/24/2018 [facility] mg/dL 8:30 AM CDT LABORATORIES [facility] Aspartate 26 8 - 43 11/24/2018 ED [facility] Aminotransferase U/L 8:30 AM CDT LABORATORIE S - (AST), S [facility] Alanine 13 7 - 45 11/24/2018 ED [facility] Aminotransferase U/L 8:30 AM CDT LABORATORIE S - (ALT), S [facility] Alkaline 93 35 - 104 11/24/2018 ED [facility] Phosphatase, S U/L 8:30 AM CDT LABORATORIES - [facility] Albumin, S 4.2 3.5 - 5.0 11/24/2018 ED [facility] g/dL 8:30 AM CDT LABORATORIES - [facility] Protein, Total, S 7.3 6.3 - 7.9 11/24/2018 ED [facility] g/dL 8:30 AM CDT LABORATORIES - [facility] Specimen Anatomical Collection Method Collection Time Receive d Time (Source) Location / / Volume Laterality Blood (Blood, 11/24/2018 7:15 AM 11/25/19 19 7:36 Venous) CDT AM CDT Rohan Armenta M.D. LAB BLOOD ADD-ON Performing Organization Address City/State/ZIP Code Phon e Number ED [facility] LABORATORIES - [address] [place], [place] [address] [facility] (ABNORMAL) CBC no call back, reflex T/S HGB <8 (11/24/2018 7:15 AM CDT) [facility] Method Time Signature Hemoglobin 11.9 11.6 - 11/24/2018 ED [facility] 15.0 g/dL 7:53 AM CDT LABORATORIES - [facility] Hematocrit 33.4 (L) 35.5 - 11/24/2018 ED [facility] 44.9 % 7:53 AM CDT LABORATORIES - [facility] Erythrocytes 3.58 (L) 3.92 - 11/24/2018 ED [facility] 5.13 7:53 AM CDT LABORATORIES - x10(12)/L [facility] MCV 93.3 78.2 - 11/24/2018 ED [facility] 97.9 fL 7:53 AM CDT LABORATORIES [facility] RBC Distrib 17.7 (H) 12.2 - 11/24/2018 ED [facility] Width 16.1 % 7:53 AM CDT LABORATORIES [facility] Platelet Count 115 (L) 157 - 371 11/24/2018 [facility] x10(9)/L 7:53 AM CDT LABORATORIES [facility] Leukocytes 3.6 3.4 - 9.6 11/24/2018 [facility] x10(9)/L 7:53 AM CDT LABORATORIES - [facility] Neutrophils 2.55 1.56 - 11/24/2018 [facility] 6.45 7:53 AM CDT LABORATORIES - x10(9)/L [facility] Lymphocytes 0.69 (L) 0.95 - 11/24/2018 ED [facility] 3.07 7:53 AM CDT LABORATORIES - x10(9)/L [facility] Monocytes 0.28 0.26 - 11/24/2018 ED [facility] 0.81 7:53 AM CDT LABORATORIES - x10(9)/L [facility] Eosinophils 0.06 0.03 - 11/24/2018 ED [facility] 0.48 7:53 AM CDT LABORATORIES - x10(9)/L [facility] Basophils <0.03 0.01 - 11/24/2018 ED [facility] 0.08 7:53 AM CDT LABORATORIES - x10(9)/L [facility] Specimen Anatomical Collection Method Collection Time Receive d Time (Source) Location / / Volume Laterality Blood (Blood, 11/24/2018 7:15 AM 11/25/19 19 7:36 Venous) CDT AM CDT Rohan Armenta M.D. LAB BLOOD NON ADD-ON Performing Organization Address City/State/ZIP Code Phon e Number ED [facility]IES - [address] [place] [address] [facility] Basic Metabolic Panel (11/24/2018 7:15 AM CDT) Analysis Performed At Patho logist Time Signature Potassium, S 4.5 3.6 - 5.2 11/24/2018 ED [facility] mmol/L 8:30 AM CDT LABORATORIES - [facility] Sodium, S 143 135 - 145 11/24/2018 ED [facility] mmol/L 8:30 AM CDT LABORATORIES - [facility] Chloride, S 103 98 - 107 11/24/2018 ED [facility] mmol/L 8:30 AM CDT LABORATORIES - [facility] Bicarbonate, S 28 22 - 29 11/24/2018 ED [facility] mmol/L 8:30 AM CDT LABORATORIES - [facility] Anion Gap 12 7 - 15 11/24/2018 ED [facility] 8:30 AM CDT LABORATORIES - [facility] BUN (Blood Urea 13 6 - 21 11/24/2018 ED [facility] Nitrogen), S mg/dL 8:30 AM CDT LABORATORIES [facility] Creatinine 0.82 0.59 - 11/24/2018 ED [facility] 1.04 mg/dL 8:30 AM CDT LABORATORIES [facility] eGFR-Non 81 >=60 11/24/2018 ED [facility] Black/ mL/min/BSA 8:30 AM CDT LABORATORIES [facility] Comment: ----ADDITIONAL INFORMATION---- Estimated GFR calculated using the 2009 CKD_EPI creatinine equation. eGFR-Black/ >90 >=60 mL/min/BSA 11/24/2018 8:30 ED [facility] Swazi CDT LABORATORIES [facility] Comment: ----ADDITIONAL INFORMATION---- Estimated GFR calculated using the 2009 CKD_EPI creatinine equation. Calcium, Total, S 9.0 8.6 - 10.0 mg/dL 11/24/2018 8:30 AM ED [facility] CDT LABORATORIES [facility] S Glucose, S 96 70 - 140 mg/dL 11/24/2018 8:30 AM ED [facility] CDT LABORATORIES [facility] S Specimen Anatomical Collection Method Collection Time Receive d Time (Source) Location / / Volume Laterality Blood (Blood, 11/24/2018 7:15 AM 11/25/19 19 7:36 Venous) CDT AM CDT Rohan Armenta M.D. LAB BLOOD ADD-ON Performing Organization Address City/State/ZIP Code Phon e Number [facility] LAB[facility]ATORIES - [address] [place] [address] [facility] AFP (Alpha-Fetoprotein) L3% and Total, Hepatocellular Carcinoma Tumor Marker (11/24/2018 7:15 AM CDT) P athologist Signature Total AFP, S 2.4 ng/mL 11/24/2018 ED [facility] 3:23 PM CDT [facility] [place] %L3 <1.0 <10 % 11/24/2018 ED [facility] 3:[address] [facility] Comment: ----ADDITIONAL INFORMATION---- The testing method is isotachophoresis w ith laser-induced fluorescence manufactured by [email or web address] and performed on the i30. ? Values [...] Organization Address City/State/ZIP Code Phon e Number ED [facility] [address] [place] [address] [facility]ENTER documented in this encounter Visit Diagnoses Diagnosis Cirrhosis Nonalcoholic (HCC) - Primary Hepatitis Autoimmune (HCC) Cirrhosis Nonalcoholic (HCC) Hepatitis Autoimmune (HCC) documented in this encounter
--- OUTSIDE RECORDS SUMMARY | 2022-05-22 16:08 | XMS_ITS | Encounter Summary ---
:[address] [facility] Address [address] [place] [address] Care Team Providers Name Role Phone Unavailable Primary Care Provider Unavailable Reason for Visit Reason Comments Med Refill Encounter Details Date Type Department Care Team Description 07/07/2018 Refill Division of Rheumatology in Pedro Donnelly APRN, Med Refill [place], [place] C.N.P. [address] [facility] [address] [place] [address] [place] [address] [phone] (Wo rk) Social History Tobacco Use Types [...] How often do you attend mormonism or latter-day services? Never 09/23/2021 Do you [...] or slept in a penitentiary (including now)? Sex Assigned at Date Recorded Female 03/09/2018 3:30 PM CDT documented as of this encounter Miscellaneous Notes Telephone Encounter - Francheska Barboza - 07/07/2018 9:29 AM CDT Faxed prednisone 5 mg tablets to [facility]. documented in this encounter Plan of Treatment Upcoming Encounters Date Type Specialty Care Team Description 07/08/2022 Appointment Laboratory Medicine Pedro Donnelly, DIRECTOR OF NURSES REGISTRY, C.N.P. [address] [place] [phone] (Wo rk) 07/08/2022 Office Visit Gastroenterology and Collin Trivedi Hepatology Chloe [address] [place] [phone] (Wo rk) documented as of this encounter Visit Diagnoses Not on filedocumented in this encounter
--- OUTSIDE RECORDS SUMMARY | 2022-05-22 16:09 | XMS_ITS | Encounter Summary ---
:1965 Author Organization [facility] Address [address] [place] [address] Care Team Providers Name Role Phone Unavailable Primary Care Provider Unavailable Encounter Details Date Type Department Care Team Description 03/17/2018 Abstract DATA ABSTRACTION Provider, Historical Social History Tobacco Use Types Packs/Day Years [...] er 09/23/2021 How often do you attend presybeterian or confucianist services? Never 09/23/2021 Do you belong to any clubs or organizations such as No 09/23/2021 presybeterian groups, unions, fraternal or athletic groups, or [...] slept in a group home (including now)? Sex Assigned at Date Recorded Female 03/09/2018 3:30 PM CDT documented as of this encounter Plan of Treatment Upcoming Encounters Date Type Specialty Care Team Description 07/08/2022 Appointment Laboratory Medicine Pedro Donnelly, ANTHONY, C.N.P. [address] [place] [phone] (Claudia vera) 07/08/2022 Office Visit Gastroenterology and Collin Trivedi Hepatology MAyala [address] [place] [phone] (Claudia rk) documented as of this encounter Visit Diagnoses Not on filedocumented in this encounter
--- OUTSIDE RECORDS SUMMARY | 2022-05-22 16:09 | XMS_ITS | Encounter Summary ---
:1965 Author Organization [facility] Address [address] [place] [address] Care Team Providers Name Role Phone Unavailable Primary Care Provider Unavailable Reason for Visit Reason Onset Date Comments Labs Only 04/07/2018 Encounter Details Date Type Department Care Team Description 04/07/2018 Clinical Communication Division of [facility] Only Rheumatology in Layton Ramirez R.N. [place], [place] [address] [facility] [address] [place] [phone] Social History Tobacco Use Types Packs/Day Years [...] How often do you attend sabianism or orthodox services? Never 09/23/2021 Do you [...] slept in a care home (including now)? Sex Assigned at Date Recorded Female 03/09/2018 3:30 PM CDT documented as of this encounter Miscellaneous Notes Telephone Encounter - Layton Turner R.N. - 04/12/2018 11:54 AM CDT INFORMATION DISCUSSED Message relayed to patient. She will follow up with primary care provider regarding urinalysis and expect follow up appointment with rheumatology. PLAN Disposition/Recommendation: self-care appropriate at this time Education: patient/caller able to teach back Caller agreeable to plan of care: yes The following references were used: nursing clinical judgement Telephone Encounter - Pedro Donnelly APRN, C.N.P. - 04/09/2018 4:17 PM CDT Can we schedule her next return visit. In the meantime please advise her to touch bases with her primary care provider. She did have bacterial cells noted in her urine which suggest she may have a urinary tract infection. This also may be related to her rheumatic condition. I am not certain if the patient herself suggested a referral to Hematology but I think it would be best for us to review that inthe visit before making the referral as the levels are not quite to the threshold that she would warrant a Hematology referral at this point. Please let me know if she has further questions at this time. Telephone Encounter - Layton Turner R.N. - 04/07/2018 2:41 PM CDT INFORMATION DISCUSSED Information relayed to patient. She will have labs rechecked in one month. We will need to send her another lab letter for this draw. She also questioned if it is reasonable to have her lab work evaluated further. She does not quite feel as well as she has in the past and noticed that with labs trending down, she feels worse. PLAN Disposition/Recommendation: provider notified, awaiting provider recommendations and self-care appropriate at this time Education: patient/caller able to teach back Caller agreeable to plan of care: yes The following references were used: nursing clinical judgement Telephone Encounter - Pedro Donnelly APRN C.N.P. - 04/07/2018 1:35 PM CDT Platelets low but stable. Leukocyte count lower than previous. Please let her know she should recheck in 1 month. Thank you, Pedro Telephone Encounter - Layton Turner R.N. - 04/07/2018 11:59 AM CDT ASSESSMENT Rheumatology Monitoring Labs completed on 04/06/18 were reviewed per Rheumatology division parameters. Labs reviewed: CBC with differential, AST leukocytes, platelets are outside of the parameters. External labs were sent for scanning. PLAN Provider notified of abnormal lab(s). WBC 2.87 Platelets 99 documented in this encounter Plan of Treatment Upcoming Encounters Date Type Specialty Care Team Description 07/08/2022 Appointment Laboratory Medicine Pedro Donnelly APRN, C.N.P. [address] [place] [phone] (Claudia vera) 07/08/2022 Office Visit Gastroenterology and [facility] T[facility] Hepat[facility] Chloe [address] [place] [phone] (Wo rk) documented as of this encounter Results (ABNORMAL) Morphology Evaluation (Special Smear) (05/13/2018 7:44 AM CDT) [facility] Method Time Signature Neutrophilic Segs 72 50 - 75 % 05/13/2018 [facility] and Bands 11:15 AM CDT [facility] Lymphocytes 22 18 - 42 % 05/13/2018 [facility] 11:15 AM CDT [facility] Monocytes 5 2 - 11 % 05/13/2018 [facility] 11:15 AM CDT [facility] Myelocytes 1 (H) <0.5 % 05/13/2018 [facility] 11:15 AM CDT [facility] Manual Absolute 1.94 1.56 - 05/13/2018 [facility] Neutrophil Count 6.45 11:15 AM CDT [facility] - x10(9)/L [facility] Comment: ----ADDITIONAL INFORMATION---- The manual absolute neutrophil count is derived from a manual differential count and therefore is not exactly comparable to the automated absolute joslyn trophil count. Interpretation SeeComment 05/13/2018 11:15 AM CDT [facility] Comment: Peripheral blood smear reviewed; no diag nostic abnormalities are seen. No schistocytes are seen. Reviewed by: Lyle 05/13/2018 11:15 AM CDT [facility] Specimen Anatomical Collection Method Collection Time Receive d Time (Source) Location / / Volume Laterality Blood (Blood, 05/13/2018 7:44 AM 05/13/20 18 8:13 Venous) CDT AM CDT Pedro Donnelly APRN, C.N.P. LAB BLOOD ADD-ON Performing Organization Address City/State/ZIP Code Phon e Number [facility] - [address] [place], [place] [address] [facility] documented in this encounter Visit Diagnoses Diagnosis Thrombocytopenia (HCC) - Primary documented in this encounter
--- OUTSIDE RECORDS SUMMARY | 2022-05-22 16:09 | XMS_ITS | Encounter Summary ---
:1965 Author Organization [facility] Address [address] [place] [address] Care Team Providers Name Role Phone Elsewhere, Pcp Primary Care Provider Unavailable Encounter Details Date Type Department Care Team Description 06/11/2012 Historical Ophthalmology [facility] Thom Varela M.D. [address] [place], [place] [phone] Social History Tobacco Use Types Packs/Day Years Used Date Smoking Tobacco: Never Assessed Alcohol Habits Answer Date Recorded How often [...] How often do you attend uatsdin or jainism services? Never 09/23/2021 Do you [...] slept in a skilled nursing (including now)? Sex Assigned at Date Recorded Female 03/09/2018 3:30 PM CDT documented as of this encounter Progress Notes Thom Onofre M.D. 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 Patient herefor evaluation for starting Plaquenil for Lupus. Denies concerns or changes with vision, both eyes. KNK: Will be starting plaquenil. No other eye issues. No family history of eye conditions. IMPRESSION / REPORT / PLAN #1 Plaquenil screening exam The [employer] [employer] has recently changed the recommendations for plaquenil screening by ophthalmology. The new recommendations include baseline visual david (DWAYNE 10-2) and baseline macular OCT by [facility]. The baseline tests should be done within the first few months of starting plaquenil. If the patient is still on plaquenil five years later, these tests are then to be repeatedannually from that time forward as long as they take plaquenil. #2 Probable systemic lupus erythematosis Recent diagnosis. 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 Would be nice to see her once on treatment and ensure it is improving. DIAGNOSIS #1 Plaquenil screening exam #2 Probable systemic lupus erythematosis CD[facility] - [facility] Id: [id number] Status: Fnl documented in this encounter Plan of Treatment Upcoming Encounters Date Type Specialty Care Team Description 07/08/2022 Appointment Laboratory Medicine Pedro Donnelly, BALLER TENDER, C.N.P. [address] [place] [phone] (Claudia vera) 07/08/2022 Office Visit Gastroenterology and [facility] T[facility]edi Hepatology Chloe [address] [place] [phone] (Claudia vera) documented as of this encounter Visit Diagnoses Not on filedocumented in this encounter Additional Health Concerns Infection Onset Date Last Indicated Resolved Time COVID19 Pending 01/23/2020 01/23/2020 02/15/2020 8:07 AM CDT documented as of this encounter Care Teams Tractor Expert Relationship Specialty Start Date End Date Elsewhere, Pcp PCP - General Family Medicine 03/25/21 documented as of this encounter
--- OUTSIDE RECORDS SUMMARY | 2022-05-22 16:09 | XMS_ITS | Encounter Summary ---
:1965 Author Organization [facility] Address [address] [place] [address] Care Team Providers Name Role Phone Elsewhere, Pcp Primary Care Provider Unavailable Encounter Details Date Type Department Care Team Description 09/02/2012 Historical Ophthalmology [facility] Thom Varela M.D. [address] [place], [place] [phone] Social History Tobacco Use [...] How often do you attend amish or methodist services? Never 09/23/2021 Do you [...] encounter Progress Notes Thom Onofre M.D. - 09/02/2012 8:06 AM CST Eye General CHIEF COMPLAINT plaquenil screening. HISTORY OF PRESENT ILLNESS 47 year old female here for Plaquenil screening. Notes redness and itching both eyes x one week. Denies any mattering or discharge. Denies any cold symptoms. Vision is stable. IMPRESSION / REPORT / PLAN #1 Plaquenil screening exam The [place] [employer] [employer] has recently changed the [...] forward as long as they take plaquenil. 10-2 RIGHT: reliable test. single superotemporal decicient area. LEFT: reliable test. mild superotemporal deficiency. OCT macula: normal contour with normal appearing OS/IS junction both eyes FAF: normal OU, no bullseye #2 Probable systemic lupus erythematosis CWS resolved. Tolerating medication well. #3 Dry eye syndrome Artificial tears QID both eyes. RTC one year. Sooner if symptoms worsen. Will recheck 10-2 even though not at five years due to baseline abnormality. DIAGNOSIS #1 Plaquenil screening exam #2 Probable systemic lupus erythematosis #3 Dry eye syndrome CDM Reports - [facility] Id: [id number] Status: Fnl documented in this encounter Plan of Treatment Upcoming Encounters Date Type Specialty Care Team Description 07/08/2022 Appointment Laboratory Medicine Pedro Donnelly APRN, C.N.P. [address] [place] [phone] (Wo rk) 07/08/2022 Office Visit Gastroenterology and [facility] Trivedi Hepatology Chloe [address] [place] [phone] (Wo rk) documented as of this encounter Visit Diagnoses Not on filedocumented in this encounter Additional Health Concerns Infection Onset Date Last Indicated Resolved Time COVID19 Pending 01/23/2020 01/23/2020 02/15/2020 8:07 AM CDT documented as of this encounter Care Teams [employer] Supervisor Relationship Specialty Start Date End Date Elsewhere, Pcp PCP - General Family Medicine 03/25/21 documented as of this encounter
--- OUTSIDE RECORDS SUMMARY | 2022-05-22 16:09 | XMS_ITS | Encounter Summary ---
:1965 Author Organization [facility] Address [address] [place] [address] Care Team Providers Name Role Phone Unavailable Primary Care Provider Unavailable Reason for Referral Outpatient (Routine) - Closed Specialty Diagnoses / Procedures Referred By Contact Refer red To Contact Rheumatology Diagnoses Hepatitis Autoimmune (HCC) Lupus Systemic Erythematosus (HCC) [facility] C[facility] [address] [place] [address] Referral ID Status Reason Start Date Expiration Date Visits Requ ested Visits Authorized [id number] Closed 12/25/2017 06/23/2018 1 1 Encounter Details Date Type Department Care Team Description 12/17/2017 Orders Only Division of Visrodia, Hepatitis Autoi mmune (HCC); Gastroenterology in Honorio Garcia M.D. Abdomin al Pain; [place], [place] Melena; [address] [facility] Lupus Systemic Erythematosus (HCC) [place], [place] [id number] Social History Tobacco Use Types Packs/Day Years Used Date Smoking Tobacco: Every Day Alcohol Habits Answer Date Recorded How often [...] slept in a senior living (including now)? Sex Assigned at Date Recorded Female 03/09/2018 3:30 PM CDT documented as of this encounter Plan of Treatment Upcoming Encounters Date Type Specialty Care Team Description 07/08/2022 Appointment Laboratory Medicine Pedro Donnelly, DIRECTOR OF RETAIL, C.N.P. [address] [place] [address] (Wo rk) 07/08/2022 Office Visit Gastroenterology and Collin Trivedi Hepatology Chloe [address] [place] [address] (Wo rk) Scheduled Referrals Name Type Priority Associated Diagnoses [facility] Outpatient Routine Hepatitis Autoimmune Expected: visit (clinic) Referral (HCC) 02/22/2018 Lupus Systemic (Approximate) , Erythematosus (HCC) Expires: 12/25/2020 documented as of this encounter Results (ABNORMAL) Urinalysis with Microscopic (03/15/2018 11:23 AM CDT) [facility] Method Time Signature Source Midstream 03/15/2018 [facility] 11:23 AM CDT LABORATORIES - [facility] Appearance Normal Normal 03/15/2018 [facility] 12:05 PM CDT LABORATORIES - [facility] Osmolality, U 776 150 - 1150 03/15/2018 [facility] mOsm/kg 1:23 PM CDT LABORATORIES [facility] pH, U 5.5 4.5 - 8.0 03/15/2018 [facility] 1:23 PM CDT [facility] Comment: ----ADDITIONAL INFORMATION---- This test was developed and its performa nce characteristics determined by [facility] in a manner co nsistent with CLIA requirements. This test has not bee n cleared or approved by the U.S. Food and Drug Admin istration. Glucose 8 0 - 15 mg/dL 03/15/2018 12:05 PM CDT [facility] Protein, U 41 (H) <26 mg/dL 03/15/2018 12:05 PM CDT [facility] Comment: ----ADDITIONAL INFORMATION---- On 03/03/2017 the total protein assay me thod changed resulting in approximately a 15% increase in prote in values. Protein/Osmolality 0.53 (H) <0.42 Ratio 03/15/2018 1:23 PM [facility] Comment: ----ADDITIONAL INFORMATION---- On 03/03/2017 the total protein assay me thod changed resulting in approximately a 15% increase in prote in values. Predicted 24 Hr 375 mg/24 h 03/15/2018 1:23 PM [facility] Protein T [facility] Predicted Range 93-1517 mg/24 h 03/15/2018 1:23 PM [facility] Hemoglobin, QL Negative Negative 03/15/2018 1:10 PM [place] [facility] Specimen Anatomical Collection Method Collection Time Receive d Time (Source) Location / / Volume Laterality Urine 03/15/2018 11:23 03/15/2018 AM CDT 11:23 AM CDT Pedro Donnelly APRN C.N.P. LAB URINE ORDERABLES Performing Organization Address City/State/ZIP Code Phon e Number [facility] - [address] [place], [place] [address] [facility] Alkaline Phosphatase (03/15/2018 8:58 AM CDT) P athologist Signature Alkaline 86 41 - 108 03/15/2018 [facility] Phosphatase, S U/L 10:11 AM CDT [facility] Specimen Anatomical Collection Method Collection Time Receive d Time (Source) Location / / Volume Laterality Blood 03/15/2018 8:58 AM 8 9:18 CDT AM CDT Robert Kumar APRNN.P. LAB BLOOD ADD-ON Performing Organization Address City/[facility]/ZIP Code Phon e Number [facility] LABORATORIES - [address] [place] [address] [facility] ALT (Alanine Aminotransferase) (03/15/2018 8:58 AM CDT) [facility] Method Time Signature Alanine 21 7 - 45 03/15/2018 [facility] Aminotransferase U/L 10:05 AM LABORATORIES - (ALT), S CDT [facility] Specimen Anatomical Collection Method Collection Time Receive d Time (Source) Location / / Volume Laterality Blood 03/15/2018 8:58 AM 8 9:18 CDT AM CDT Apolonia Kumar APRN.N.P. LAB BLOOD ADD-ON Performing Organization Address City/[facility]/ZIP Code Phon e Number [facility] LABORATORIES - [address] [address] [facility] AST (Aspartate Aminotransferase) (03/15/2018 8:58 AM CDT) [facility] Method Time Signature Aspartate 26 8 - 43 03/15/2018 [facility] Aminotransferase U/L 10:05 AM LABORATORIES - (AST), S CDT [facility] Specimen Anatomical Collection Method Collection Time Receive d Time (Source) Location / / Volume Laterality Blood 03/15/2018 8:58 AM 8 9:18 CDT AM CDT Apolonia Kumar APRN.N.P. LAB BLOOD ADD-ON Performing Organization Address City/[facility]/ZIP Code Phon e Number [facility] LABORATORIES - [address] [address] [facility] (ABNORMAL) Complement C4 (03/15/2018 8:58 AM CDT) [facility] Method Time Signature Complement C4, <3 (L) 14 - 40 03/15/2018 [facility] S mg/dL 11:43 AM CDT LABORATORIES - [facility] Specimen Anatomical Collection Method Collection Time Receive d Time (Source) Location / / Volume Laterality Blood 03/15/2018 8:58 AM 8 CDT 10:19 AM CDT Robert Kumar APRNN.P. LAB BLOOD ADD-ON Performing Organization Address City/[facility]/ZIP Code Phon e Number [facility] LABORATORIES - [address] [address] [facility] Complement C3 (03/15/2018 8:58 AM CDT) Analysis Performed At Patho logist Time Signature Complement C3, 84 75 - 175 03/15/2018 [facility] S mg/dL 11:31 AM CDT LABORATORIES - [facility] Specimen Anatomical Collection Method Collection Time Receive d Time (Source) Location / / Volume Laterality Blood 03/15/2018 8:58 AM 8 CDT 10:19 AM CDT Robert Kumar APRNN.P. LAB BLOOD ADD-ON Performing Organization Address City/[facility]/ZIP Code Phon e Number [facility] LABORATORIES - [address] [address] [facility] (ABNORMAL) Complement, Total (03/15/2018 8:58 AM CDT) Analysis Performed At Patho logist Time Signature Complement, 24 (L) 30 - 75 03/15/2018 [facility] Total, S U/mL 2:16 PM CDT LABORATORIES - [facility] Specimen Anatomical Collection Method Collection Time Receive d Time (Source) Location / / Volume Laterality Blood 03/15/2018 8:58 AM 8 1:18 CDT PM CDT Robert Kumar APRNN.P. LAB BLOOD NON ADD-ON Performing Organization Address City/[facility]/ZIP Code Phon e Number [facility] LABORATORIES - [address] [address] [facility] DNA Double-Stranded (dsDNA) Antibodies, IgG (03/15/2018 8:58 AM CDT) P athologist Signature DNA 13.3 <30.0 03/15/2018 [facility] Double-Strande (Negative) 3:46 PM CDT LABORATORIES - d Ab, IgG, S IU/mL [facility] Specimen Anatomical Collection Method Collection Time Receive d Time (Source) Location / / Volume Laterality Blood 03/15/2018 8:58 AM 8 CDT 10:20 AM CDT Apolonia Kumar APRN.N.P. LAB BLOOD ADD-ON Performing Organization Address City/State/ZIP Code Phon e Number [facility] LABORATORIES - [address] [address] [facility] Creatinine with Estimated GFR (MDRD) (03/15/2018 8:58 AM CDT) Analysis Performed At Patho logist Time Signature Creatinine 0.95 0.59 - 03/15/2018 [facility] 1.04 mg/dL 10:05 AM CDT LABORATORIES - [facility] eGFR-Non 69 >=60 03/15/2018 [facility] Black/ mL/min/BSA 10:05 AM CDT LABORATORIES - [facility] Comment: ----ADDITIONAL INFORMATION---- Estimated GFR calculated using the 2009 CKD_EPI creatinine equation. eGFR-Black/ 79 >=60 mL/min/BSA 03/15/2018 10:0 5 [facility] Cymro CDT LABORATORIES - [facility] Comment: ----ADDITIONAL INFORMATION---- Estimated GFR calculated using the 2009 CKD_EPI creatinine equation. Specimen Anatomical Collection Method Collection Time Receive d Time (Source) Location / / Volume Laterality Blood 03/15/2018 8:58 AM 8 9:18 CDT AM CDT Apolonia Kumar APRN.N.P. LAB BLOOD ADD-ON Performing Organization Address City/State/ZIP Code Phon e Number [facility] LABORATORIES - [address] [address] [facility] CRP (C-Reactive Protein) (03/15/2018 8:58 AM CDT) P athologist Signature C-Reactive 3.0 <=8.0 mg/L 03/15/2018 [facility] Protein (CRP), 10:05 AM CDT LABORATORIES - [facility] Specimen Anatomical Collection Method Collection Time Receive d Time (Source) Location / / Volume Laterality Blood 03/15/2018 8:58 AM 8 9:18 CDT AM CDT Apolonia Kumar APRN.N.P. LAB BLOOD ADD-ON Performing Organization Address City/State/ZIP Code Phon e Number [facility] LABORATORIES - [address] [address] [facility] Sedimentation Rate (03/15/2018 8:58 AM CDT) [facility] Enteye Method Time Signature Sedimentation 3 0 - 29 03/15/2018 [facility] Rate, B mm/1 h 10:28 AM CDT LABORATORIES [facility] Specimen Anatomical Collection Method Collection Time Receive d Time (Source) Location / / Volume Laterality Blood 03/15/2018 8:58 AM 8 9:18 CDT AM CDT Pedro Donnelly APRN C.N.PSarina LAB BLOOD ADD-ON Performing Organization Address City/State/ZIP Code Phon e Number [facility] LABORATORIES - [address] [place], [place] [address] [facility] (ABNORMAL) CBC with Differential (03/15/2018 8:58 AM CDT) [facility] Method Time Signature Hemoglobin 13.8 11.6 - 03/15/2018 [facility] 15.0 g/dL 9:21 AM CDT LABORATORIES [facility] Hematocrit 39.8 35.5 - 03/15/2018 [facility] 44.9 % 9:21 AM CDT LABORATORIES - [facility] Erythrocytes 4.51 3.92 - 03/15/2018 [facility] 5.13 9:21 AM CDT LABORATORIES - x10(12)/L [facility] MCV 88.2 78.2 - 03/15/2018 [facility] 97.9 fL 9:21 AM CDT LABORATORIES [facility] RBC Distrib 13.6 12.2 - 03/15/2018 [facility] Width 16.1 % 9:21 AM CDT LABORATORIES [facility] Platelet Count 101 (L) 157 - 371 03/15/2018 [facility] x10(9)/L 9:21 AM CDT LABORATORIES [facility] Leukocytes 3.3 (L) 3.4 - 9.6 03/15/2018 [facility] x10(9)/L 9:21 AM CDT LABORATORIES [facility] Neutrophils 2.31 1.56 - 03/15/2018 [facility] 6.45 9:21 AM CDT LABORATORIES - x10(9)/L [facility] Lymphocytes 0.68 (L) 0.95 - 03/15/2018 [facility] 3.07 9:21 AM CDT LABORATORIES - x10(9)/L [facility] Monocytes 0.26 0.26 - 03/15/2018 [facility] 0.81 9:21 AM CDT LABORATORIES - x10(9)/L [facility] Eosinophils 0.03 0.03 - 03/15/2018 [facility] 0.48 9:21 AM CDT LABORATORIES - x10(9)/L [facility] Basophils <0.03 0.01 - 03/15/2018 [facility] 0.08 9:21 AM CDT LABORATORIES - x10(9)/L [facility] Specimen Anatomical Collection Method Collection Time Receive d Time (Source) Location / / Volume Laterality Blood 03/15/2018 8:58 AM 8 9:17 CDT AM CDT Pedro Donnelly APRN C.N.P. LAB BLOOD ADD-ON Performing Organization Address City/State/ZIP Code Phon e Number [facility] LABORATORIES - [address] [place], [place] [address] [facility] documented in this encounter Visit Diagnoses Diagnosis Hepatitis Autoimmune (HCC) Abdominal Pain Melena Lupus Systemic Erythematosus (HCC) documented in this encounter
--- OUTSIDE RECORDS SUMMARY | 2022-05-22 16:09 | XMS_ITS | Encounter Summary ---
:1965 Author Organization [facility] Address [address] [place] [address] Care Team Providers Name Role Phone Elsewhere, Pcp Primary Care Provider Unavailable Encounter Details Date Type Department Care Team Description 08/29/2016 Historical Ophthalmology RST OPH Paige Rainey M.D. [address] [place], [place] [phone] (Wo rk) Social History [...] often do you attend jehovah's witness or sabianist services? Never 09/23/2021 Do you [...] documented as of this encounter Progress Notes Paige Rainey M.D. - 08/29/2016 7:40 AM CST Eye General CHIEF COMPLAINT Plaquenil check HISTORY OF PRESENT ILLNESS Started using Plaquenil in 2011. Denies diplopia and pain. Burning; both eyes; couple months; on andoff; rare. LAD: Here for general eye exam. Has been using Plaquenil since 2011. Is not currently due to new photos. Patient does notice some intermittent blurry vision. IMPRESSION / REPORT / PLAN Consult requested by: Landon Bal #1 High risk medication, hydroxychloroquine No evidence of toxicity. Reviewed Annual exams. Will need 10-2 and OCT macula annually beginning next year as long as she remains on Plaquenil. #2 Dry eye Discussed. Recommend artificial tears PRN. #3 Systemic lupus erythematosis On Plaquenil. RTC 1 year with 10-2 and OCT macula/sooner PRN. DIAGNOSIS #1 High risk medication, hydroxychloroquine #2 Dry eye #3 Systemic lupus erythematosis CDM Reports - EYEGEN Id: [id number] Status: Fnl documented in this encounter Plan of Treatment Upcoming Encounters Date Type Specialty Care Team Description 07/08/2022 Appointment Laboratory Medicine Pedro Donnelly, BLOOMING MILL SUPERVISOR, C.N.P. [address] [place] [phone] (Claudia vera) 07/08/2022 Office Visit Gastroenterology and Collin Trivedi Hepatology Chloe [address] [place] [phone] (Claudia vera) documented as of this encounter Visit Diagnoses Not on filedocumented in this encounter Additional Health Concerns Infection Onset Date Last Indicated Resolved Time COVID19 Pending 01/23/2020 01/23/2020 02/15/2020 8:07 AM CDT documented as of this encounter Care Teams Director Of Consumer Affairs Relationship Specialty Start Date End Date Elsewhere, Pcp PCP - General Family Medicine 03/25/21 documented as of this encounter
--- OUTSIDE RECORDS SUMMARY | 2022-05-22 16:09 | XMS_ITS | Encounter Summary ---
:1965 Author Organization [facility] Address [address] [place] [address] Care Team Providers Name Role Phone Unavailable Primary Care Provider Unavailable Encounter Details Date Type Department Care Team Description 11/20/2017 Abstract DATA ABSTRACTION Rich De La Fuente, RSarinaNSarina [address] [place], [place] [phone] Social History Tobacco Use Types Packs/Day Years [...] How often do you attend restoration or episcopal services? Never 09/23/2021 Do you [...] Medicine Pedro Donnelly, ANTHONY, C.N.P. [address] [place] [address] (Wo rk) 07/08/2022 Office Visit Gastroenterology and Collin Trivedi Hepatology MSarinaDSarina [address] [place] [address] (Wo rk) documented as of this encounter Visit Diagnoses Not on filedocumented in this encounter
--- OUTSIDE RECORDS SUMMARY | 2022-05-22 16:09 | XMS_ITS | Encounter Summary ---
:1965 Author Organization [facility] Address [address] [place] [address] Care Team Providers Name Role Phone Unavailable Primary Care Provider Unavailable Encounter Details Date Type Department Care Team Description 07/02/2012 Hospital Encounter HX NO MAPPING Social History Tobacco Use Types Packs/Day Years [...] How often do you attend sabianism or tenriism services? Never 09/23/2021 Do you [...] Sign Reading Time Taken Comments Blood Pressure 146/61 07/02/2012 11:53 AM CDT Pulse 80 07/02/2012 12:05 PM CDT Temperature - - Respiratory Rate 16 07/02/2012 9:29 AM CDT Oxygen Saturation - - Inhaled Oxygen Concentration - - Weight 88.5 kg (195 lb 1.7 oz) 07/02/2012 6:55 AM CDT Height 164 cm (5' 4.57) 07/02/2012 6:55 AM CDT Body Mass Index 32.9 07/02/2012 6:55 AM CDT documented in this encounter Plan of Treatment Upcoming Encounters Date Type Specialty Care Team Description 07/08/2022 Appointment Laboratory Medicine Pedro Donnelly, LITIGATION COORDINATOR, C.N.P. [address] [place] [phone] (Wo rk) 07/08/2022 Office Visit Gastroenterology and Collin Trivedi, Hepatology MSarinaDSarina [address] [place] [phone] (Wo rk) documented as of this encounter Visit Diagnoses Not on filedocumented in this encounter
--- OUTSIDE RECORDS SUMMARY | 2022-05-22 16:09 | XMS_ITS | Encounter Summary ---
:1965 Author Organization [facility] Address [address] [place] [id number] Care Team Providers Name Role Phone Unavailable Primary Care Provider Unavailable Reason for Referral Outpatient (Routine) - Closed Specialty Diagnoses / Procedures Referred By Contact Refer red To Contact Rheumatology Pedro Donnelly APR N, C.N.P. [facility] [address] [place], [place] [phone] Referral ID Status Reason Start Date Expiration Date Visits Requ ested Visits Authorized [id number] Closed 03/15/2018 03/15/2019 1 1 Reason for Visit Outpatient (Routine) - Closed Specialty Diagnoses / Procedures Referred By Contact Refer red To Contact Rheumatology Diagnoses Hepatitis Autoimmune (HCC) Lupus Systemic Erythematosus (HCC) Pedro Donnelly APRN, [facility] C.N.P. [address] [place] [address] Referral ID Status Reason Start Date Expiration Date Visits Requ ested Visits Authorized [id number] Closed 12/25/2017 06/23/2018 1 1 Encounter Details Date Type Department Care Team Description 03/15/2018 Office Visit Division of Pedro Donnelly (HCC) (Primary Dx); Rheumatology in ANTHONY Rojas, C.N.P. Hepatitis Autoimmune (HCC); [place], [place] [address] [facility] Lupus Systemic Erythematosus (HCC); [address] [place], [place] [address] [phone] Social History Tobacco Use Types Packs/Day Years [...] Sign Reading Time Taken Comments Blood Pressure 130/78 03/15/2018 1:54 PM CDT Pulse - - Temperature 36.9 ??C (98.4 ??F) 03/15/2018 1:54 PM CDT Respiratory Rate - - Oxygen Saturation - - Inhaled Oxygen Concentration - - Weight 105 kg (230 lb 9.6 oz) 03/15/2018 1:54 PM CDT Height 165.4 cm (5' 5.12) 03/15/2018 1:54 PM CDT Body Mass Index 38.24 03/15/2018 1:54 PM CDT documented in this encounter Progress Notes Pedro Donnelly APRN, CSarinaN.P. - 03/15/2018 2:00 PM CDT SUBJECTIVE CHIEF COMPLAINT / REASON FOR VISIT Vee Danielson is a 52 y.o. female who presents as an established patient for follow up of systemic lupus erythematosus. HISTORY OF PRESENT ILLNESS I had the pleasure of seeing Ms. Danielson for the first time today in followup. She has been following with Dr. Bal for a diagnosis of systemic lupus erythematosus. 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 Therapy has included topical treatments Plaquenil and azathioprine. She last saw Dr. Bal in August of 2016. At that visit she was describing more weakness in her proximal leg muscles and difficulty getting up from a seated position. She was also noting more knee pain. Plaquenil was discontinued due to concern for possible myopathy. She did not undergo EMG or further testing for this. She did continue with the azathioprine at 100 milligrams daily. She also has a known history of autoimmune hepatitis. In follow-up today she indicates that she has generally been feeling well or stable compared to previous. She does have intermittent episodes of joint and muscle pain which have been short lived. She does not endorse any oral ulcers. With regards to skin rashes she reports some rashes with the sun butnothing that has been persistent, painful, or pruritic. She does not report any abdominal pain. She does not report any cardiopulmonary symptoms. Please see review of systems below for additional details. She continues to smoke 1 pack per day and reports that she has no interest in quitting. Previous Reports Reviewed:historical medical records, lab reports and office notes The following portions of the patient's history were reviewed and updated as appropriate: allergies,current medications, medical history and problem list. REVIEW OF SYSTEMS Pertinent positives and negatives as documented in the above history of present illness. The following systems were negative: Constitutional, Skin, Eyes, ENT, CV, Respiratory, GI, , Hematologic, Musculoskeletal, Neuro, Psych OBJECTIVE PHYSICAL EXAM Constitutional: She is oriented to person, place, and time. She appears well- developed and well-nourished. Eyes: Pupils are equal, round, and reactive to light. Neck: Normal range of motion. Cardiovascular: Normal rate and regular rhythm. Pulmonary/Chest: Effort normal and breath sounds normal. Abdominal: Soft. There is no tenderness. Neurological: She is alert and oriented to person, place, and time. Skin: Skin is warm and dry. Confluent erythematous area over the forehead. Nodular erythematous lesions over the forearms in thesun-exposed regions. No excoriation noted. Vitals reviewed. Lab: Laboratory studies from earlier today were reviewed with the patient. Her CBC includes normal hemoglobin, low platelets at 105, low white blood count at 3.3. Sedimentation rate, CRP, creatinine, AST, ALT, alkaline phosphatase all within normal parameters. Complements include low but improved complement total, normal C4, and low C3 which is undetectable. Urinalysis is notable for increase in protein and white blood cells in microscopy. Disease Activity SLEDAI ASSESSMENT / PLAN #1 Hepatitis Autoimmune (HCC) #2 Lupus Systemic Erythematosus (HCC) #3 Thrombocytopenia (HCC) #4 Dependence Nicotine Her lab levels remain low including platelets, white blood count, and complements. We reviewed these and compared with those values on initial presentation in 2011. Her platelet count does continue todrop in she is experiencing intermittent joint symptoms and does have active skin rash today. For this reason we discussed increasing her azathioprine by 25 mg to 125 mg daily. She was agreeable with this plan. Will plan to recheck her laboratory studies in 2 weeks then every 2 months and see her backin approximately 6 months. She was agreeable with that plan. She is aware of symptoms to watch for should her condition worsen. With regards to her skin rash we discussed using over the counter hydrocortisone cream initially this is not effective she could discuss with her primary care provider a strong her steroid cream and if it would continue to progress after that she would need to be seen by Dermatology here. Nothing to suggest active hepatic disease today. She will contact hepatology to schedule follow-up. She expresses no interest in cutting back or quitting smoking today. She is aware of the cardiovascular risk and the risks associated with lupus. PATIENT EDUCATION Ready to learn, no apparent learning barriers were identified; learning preferences include listening. Explained diagnosis and treatment plan; patient expressed understanding of the content. documented in this encounter Plan of Treatment Upcoming Encounters Date Type Specialty Care Team Description 07/08/2022 Appointment Laboratory Medicine Pedro Donnelly, ANTHONY, C.N.P. [address] [place] [phone] (Claudia rk) 07/08/2022 Office Visit Gastroenterology and Collin Trivedi Hepatology Chloe [address] [place] [address] (Claudia rk) Scheduled Referrals Name Type Priority Associated Order Schedule Diagnoses Rheumatology office Outpatient Referral Routine E xpected: visit (clinic) 09/15/2018 (Approximate), Expires: 03/15/2019 documented as of this encounter Results (ABNORMAL) Urinalysis with Microscopic (05/13/2018 8:29 AM CDT) Utility Scale [facility] Method Time Signature Source Midstream 05/13/2018 [facility] 8:29 AM CDT [facility] Appearance Normal Normal 05/13/2018 [facility] 9:08 AM CDT [facility] Osmolality, U 832 150 - 1150 05/13/2018 [facility] mOsm/kg 9:26 AM CDT [facility] pH, U 5.6 4.5 - 8.0 05/13/2018 [facility] 9:26 AM CDT [facility] Comment: ----ADDITIONAL INFORMATION---- This test was developed and its performa nce characteristics determined by [facility] in a manner co nsistent with CLIA requirements. This test has not bee n cleared or approved by the U.S. Food and Drug Admin istration. Glucose 10 0 - 15 mg/dL 05/13/2018 9:08 AM CDT [facility] [place] Protein, U 28 (H) <26 mg/dL 05/13/2018 9:08 AM CDT [facility] Comment: ----ADDITIONAL INFORMATION---- On 03/03/2017 the total protein assay me thod changed resulting in approximately a 15% increase in prote in values. Protein/Osmolality 0.34 <0.42 Ratio 05/13/2018 9:26 AM CDT [facility] [place] Comment: ----ADDITIONAL INFORMATION---- On 03/03/2017 the total protein assay me thod changed resulting in approximately a 15% increase in prote in values. Predicted 24 Hr 249 mg/24 h 05/13/2018 9:26 AM [facility] Protein CDT [facility] [place] S Predicted Range 61-1008 mg/24 h 05/13/2018 9:26 AM [facility] CDT [facility]IES - [facility] Hemoglobin, QL Negative Negative 05/13/2018 9:51 AM [facility] CDT LAB[facility]ATORIES - [facility] Specimen Anatomical Collection Method Collection Time Receive d Time (Source) Location / / Volume Laterality Urine (Urine, 05/13/2018 8:29 AM 05/13/20 18 8:29 Clean Catch) CDT AM CDT Pedro Donnelly APRN, C.N.P. LAB URINE ORDERABLES Performing Organization Address City/[facility] Phon e Number [facility] - [address] [place] [address] [place] Alkaline Phosphatase (05/13/2018 7:44 AM CDT) P athologist Signature Alkaline 76 41 - 108 05/13/2018 [facility] Phosphatase, S U/L 8:56 AM CDT [facility] [place] Specimen Anatomical Collection Method Collection Time Receive d Time (Source) Location / / Volume Laterality Blood (Blood, 05/13/2018 7:44 AM 05/13/20 18 8:09 Venous) CDT AM CDT Pedro Donnelly APRN, C.N.P. LAB BLOOD ADD-ON Performing Organization Address City/[facility] Phon e Number [facility] LABORATORIES - [address] [place] [address] [place] ALT (Alanine Aminotransferase) (05/13/2018 7:44 AM CDT) Patholo gist Method Time Signature Alanine 17 7 - 45 05/13/2018 [facility] Aminotransferase U/L 8:56 AM CDT LABORATORIE S - (ALT), S [place] Specimen Anatomical Collection Method Collection Time Receive d Time (Source) Location / / Volume Laterality Blood (Blood, 05/13/2018 7:44 AM 05/13/20 18 8:09 Venous) CDT AM CDT Pedro Donnelly APRN, Apolonia.N.P. LAB BLOOD ADD-ON Performing Organization Address City/[facility]/ZIP Code Phon e Number [facility] LABORATORIES - [address] [place], [place] [address] [place] AST (Aspartate Aminotransferase) (05/13/2018 7:44 AM CDT) [facility] gist Method Time Signature Aspartate 23 8 - 43 05/13/2018 [facility] Aminotransferase U/L 8:56 AM CDT LABORATORIE S - (AST), S [place] Specimen Anatomical Collection Method Collection Time Receive d Time (Source) Location / / Volume Laterality Blood (Blood, 05/13/2018 7:44 AM 05/13/20 18 8:09 Venous) CDT AM CDT Robert Kumar APRNN.P. LAB BLOOD ADD-ON Performing Organization Address City/[facility]/ZIP Code Phon e Number [facility] - [address] [place] [address] [place] (ABNORMAL) Complement, Total (05/13/2018 7:44 AM CDT) Analysis Performed At [facility] logist Time Signature Complement, 16 (L) 30 - 75 05/13/2018 [facility] Total, S U/mL 10:52 AM CDT [facility] - [place] Specimen Anatomical Collection Method Collection Time Receive d Time (Source) Location / / Volume Laterality Blood (Blood, 05/13/2018 7:44 AM 05/13/20 18 9:02 Venous) CDT AM CDT Pedro Donnelly APRN, Apolonia.N.P. LAB BLOOD NON ADD-ON Performing Organization Address City/[facility]/ZIP Code Phon e Number [facility] LABORATORIES - [address] [place] [address] [place] (ABNORMAL) Complement C4 (05/13/2018 7:44 AM CDT) [facility] gist Method Time Signature Complement C4, <3 (L) 14 - 40 05/13/2018 [facility] S mg/dL 1:26 PM CDT LABORATORIES [facility] Specimen Anatomical Collection Method Collection Time Receive d Time (Source) Location / / Volume Laterality Blood (Blood, 05/13/2018 7:44 AM 05/13/20 18 9:15 Venous) CDT AM CDT Apolonia Kumar APRN.N.P. LAB BLOOD ADD-ON Performing Organization Address City/[facility]/ZIP Code Phon e Number [facility] LABOR[facility]IES - [address] [place], [place] [address] [place] (ABNORMAL) Complement C3 (05/13/2018 7:44 AM CDT) Patholo gist Method Time Signature Complement C3, 66 (L) 75 - 175 05/13/2018 [facility] S mg/dL 12:48 PM CDT [facility] [place] Specimen Anatomical Collection Method Collection Time Receive d Time (Source) Location / / Volume Laterality Blood (Blood, 05/13/2018 7:44 AM 05/13/20 18 9:15 Venous) CDT AM CDT Robert Kumar APRNN.P. LAB BLOOD ADD-ON Performing Organization Address City/[facility]/ZIP Code Phon e Number [facility] LABORATORIES - [address] [place] [address] [place] DNA Double-Stranded (dsDNA) Antibodies, IgG (05/13/2018 7:44 AM CDT) P athologist Signature DNA 14.6 <30.0 05/13/2018 [facility] Double-Strande (Negative) 3:27 PM CDT LABORATORIES - d Ab, IgG, S IU/mL [place] Specimen Anatomical Collection Method Collection Time Receive d Time (Source) Location / / Volume Laterality Blood (Blood, 05/13/2018 7:44 AM 05/13/20 18 9:10 Venous) CDT AM CDT Pedro Donnelly APRN, Apolonia.N.P. LAB BLOOD ADD-ON Performing Organization Address City/[facility]/ZIP Code Phon e Number [facility] LAB[facility]IES - [address] [place] [address] [place] Creatinine with Estimated GFR (05/13/2018 7:44 AM CDT) Analysis Performed At Patho logist Time Signature Creatinine 0.87 0.59 - 05/13/2018 [facility] 1.04 mg/dL 8:56 AM CDT [facility] [place] eGFR-Non 76 >=60 05/13/2018 [facility] Black/ mL/min/BSA 8:56 AM CDT LABORATORIES - [facility] Comment: ----ADDITIONAL INFORMATION---- Estimated GFR calculated using the 2009 CKD_EPI creatinine equation. eGFR-Black/ 88 >=60 mL/min/BSA 05/13/2018 8:56 [facility] Burmese AM CDT [facility] [place] Comment: ----ADDITIONAL INFORMATION---- Estimated GFR calculated using the 2009 CKD_EPI creatinine equation. Specimen Anatomical Collection Method Collection Time Receive d Time (Source) Location / / Volume Laterality Blood (Blood, 05/13/2018 7:44 AM 05/13/20 18 8:09 Venous) CDT AM CDT Robert Kumar APRNN.P. LAB BLOOD ADD-ON Performing Organization Address City/[facility]/ZIP Code Phon e Number [facility] LAB[facility]ATORIES - [address] [place] [address] [place] CRP (C-Reactive Protein) (05/13/2018 7:44 AM CDT) P athologist Signature C-Reactive <3.0 <=8.0 mg/L 05/13/2018 [facility] Protein (CRP), 8:56 AM CDT LABORATORIES - [facility] Specimen Anatomical Collection Method Collection Time Receive d Time (Source) Location / / Volume Laterality Blood (Blood, 05/13/2018 7:44 AM 05/13/20 18 8:09 Venous) CDT AM CDT Robert Kumar APRNN.P. LAB BLOOD ADD-ON Performing Organization Address City/[facility]/ZIP Code Phon e Number [facility] LAB[facility]IES - [address] [place] [address] [place] Sedimentation Rate (05/13/2018 7:44 AM CDT) Patholo gist Method Time Signature Sedimentation 3 0 - 29 05/13/2018 [facility] Rate, B mm/1 h 9:22 AM CDT LABORATORIES [facility] Specimen Anatomical Collection Method Collection Time Receive d Time (Source) Location / / Volume Laterality Blood (Blood, 05/13/2018 7:44 AM 05/13/20 18 8:14 Venous) CDT AM CDT Apolonia Kumar APRN.N.P. LAB BLOOD ADD-ON Performing Organization Address City/[facility]/ZIP Code Phon e Number [facility] LAB[facility]IES - [address] [place] [address] [place] (ABNORMAL) CBC with Differential, Blood (05/13/2018 7:44 AM CDT) [facility] Method Time Signature Hemoglobin 13.5 11.6 - 05/13/2018 [facility] 15.0 g/dL 9:21 AM CDT [facility] [place] Hematocrit 38.0 35.5 - 05/13/2018 [facility] 44.9 % 9:21 AM CDT [facility]IES [facility] Erythrocytes 4.09 3.92 - 05/13/2018 [facility] 5.13 9:21 AM CDT LABORATORIES - x10(12)/L [place] MCV 92.9 78.2 - 05/13/2018 [facility] 97.9 fL 9:21 AM CDT [facility]IES [facility] RBC Distrib 13.6 12.2 - 05/13/2018 [facility] Width 16.1 % 9:21 AM CDT [facility] Platelet Count 99 (L) 157 - 371 05/13/2018 [facility] x10(9)/L 9:21 AM CDT [facility] Leukocytes 2.7 (L) 3.4 - 9.6 05/13/2018 [facility] x10(9)/L 9:21 AM CDT [facility] [place] Neutrophils 1.85 1.56 - 05/13/2018 [facility] 6.45 9:21 AM CDT LABORATORIES - x10(9)/L [place] Lymphocytes 0.56 (L) 0.95 - 05/13/2018 [facility] 3.07 9:21 AM CDT LABORATORIES - x10(9)/L [place] Monocytes 0.22 (L) 0.26 - 05/13/2018 [facility] 0.81 9:21 AM CDT LABORATORIES - x10(9)/L [place] Eosinophils 0.04 0.03 - 05/13/2018 [facility] 0.48 9:21 AM CDT LABORATORIES - x10(9)/L [place] Basophils <0.03 0.01 - 05/13/2018 [facility] 0.08 9:21 AM CDT LABORATORIES - x10(9)/L [place] Specimen Anatomical Collection Method Collection Time Receive d Time (Source) Location / / Volume Laterality Blood (Blood, 05/13/2018 7:44 AM 05/13/20 18 8:13 Venous) CDT AM CDT Pedro Donnelly APRN C.N.P. LAB BLOOD ADD-ON Performing Organization Address City/State/ZIP Code Phon e Number [facility] LABORATORIES - [address] [place], [place] [address] [place] documented in this encounter Visit Diagnoses Diagnosis Thrombocytopenia (HCC) - Primary Hepatitis Autoimmune (HCC) Lupus Systemic Erythematosus (HCC) Dependence Nicotine documented in this encounter
--- OUTSIDE RECORDS SUMMARY | 2022-05-22 16:09 | XMS_ITS | Encounter Summary ---
:1965 Author Organization [facility] Address [address] [place] [id number] Care Team Providers Name Role Phone Unavailable Primary Care Provider Unavailable Reason for Referral Outpatient (Routine) - Closed Specialty Diagnoses / Procedures Referred By Contact Refer red To Contact Rheumatology Pedro Donnelly APR N, C.N.P. [address] [phone] Referral ID Status Reason Start Date Expiration Date Visits Requ ested Visits Authorized [id number] Closed 05/13/2018 05/13/2019 1 1 Reason for Visit Outpatient (Routine) - Closed Specialty Diagnoses / Procedures Referred By Contact Refer red To Contact Rheumatology Pedro Donnelly APR N, C.N.P. [address] [phone] Referral ID Status Reason Start Date Expiration Date Visits Requ ested Visits Authorized [id number] Closed 03/15/2018 03/15/2019 1 1 Encounter Details Date Type Department Care Team Description 05/13/2018 Office Visit Division of Pedro Donnelly, Lupus Syste mar Erythematosus (HCC) (Primary Dx); Rheumatology in [place], C.N.P. Hepatitis Autoimmune (HCC); [place], [place] [address] [facility] Dependence Nicotine; [address] [place], [place] [phone] Social History Tobacco Use Types Packs/Day Years [...] How often do you attend episcopalian or protestant services? Never 09/23/2021 Do you [...] Sign Reading Time Taken Comments Blood Pressure 164/84 05/13/2018 10:18 AM CDT Pulse 74 05/13/2018 10:18 AM CDT Temperature 36.9 ??C (98.4 ??F) 05/13/2018 10:18 AM CDT Respiratory Rate - - Oxygen Saturation - - Inhaled Oxygen Concentration - - Weight 102 kg (224 lb 13.9 oz) 05/13/2018 10:18 AM CDT Height 163.8 cm (5' 4.49) 05/13/2018 10:18 AM CDT Body Mass Index 38.02 05/13/2018 10:18 AM CDT documented in this encounter Progress Notes Pedro Donnelly APRN, RobertNSarinaP. - 05/13/2018 10:30 AM CDT SUBJECTIVE CHIEF COMPLAINT / [...] follow-up today she indicates that she has been stable since her last visit here. She has been tolerating the higher dose of azathioprine. She has not had a recent infection. She has continued to have quite a bit of sun exposure. She has been using sunscreen but due to the heat has not been using long sleeve clothing. She does continue to have rash over her arms. She did use [id number] hydrocortisone with minimal improvement in did note burning with the application of the lotion. She reports that she continues to have some stiffness particularly if she sits in any position for a prolonged period of time. She notes this most through her hips and legs. She does not report any oral ulcers orcardiopulmonary symptoms. Please see review of systems below for additional details. Previous Reports Reviewed:historical medical records, lab reports [...] distinct joint tenderness noted on exam today. Generalized stiffness. Neurological: She is alert and oriented to person, place, and time. Skin: Skin is warm and dry. Erythematous rash with raised areas noted on [...] Systemic Erythematosus (HCC) #2 Hepatitis Autoimmune (HCC) She continues to have rash present on the arms bilaterally. I discussed a referral to Dermatology and she would like to coordinate this with her next return visit here in August. I will try to arrange for that visit. She also is describing persistent morning stiffness which has not improved substantially with the change in the azathioprine. We discussed other medication options including Plaquenil which had previously been discontinued due to cost and question of myopathy. She is not entirely certain that the myopathy improved after discontinuation of the Plaquenil and believes it may have been more the inflammatory arthritis symptoms. We discussed mycophenolate mofetil which may be an option but does not always work as well for joint related symptoms and is or can be quite costly. Side effectsrisks and benefits of this were discussed in detail and written material was provided. Lastly we discussed use of Benlysta including side effects risks and benefits. She would like to avoid prednisone if at all possible. She does use tobacco up to 1 pack per day and does not have interest in quitting at this time. We discussed that this may interfere with the Plaquenil as well as the disease process.Dr. Bal is away this week I will plan to review with him next week when he returns. #3 Dependence Nicotine She does not have interest in quitting at this time. She is smoking approximately 1 pack per day. Implications for her disease and therapy were discussed today. #4 High Risk Medication She will continue with appropriate laboratory monitoring every 2 months while she remains on azathioprine. We will outline a different program she does switch to a different therapy. PATIENT EDUCATION Ready to learn, no apparent learning barriers were identified; learning preferences include listening. Explained diagnosis and treatment plan; patient expressed understanding of the content. documented in this encounter Plan of Treatment Upcoming Encounters Date Type Specialty Care Team Description 07/08/2022 Appointment Laboratory Medicine Pedro Donnelly APRN, C.N.P. [address] [place] [phone] (Claudia rk) 07/08/2022 Office Visit Gastroenterology and Collin Trivedi Hepatology [place] [address] [place] [phone] (Claudia vera) Scheduled Referrals Name Type Priority Associated Order Schedule Diagnoses Rheumatology office Outpatient Referral Routine E xpected: visit (clinic) 08/12/2018 (Approximate), Expires: 05/13/2021 documented as of this encounter Results Urinalysis with Microscopic (08/26/2018 7:13 AM SERVICE STATION CASHIER) [facility] Method Time Signature Source Midstream 08/26/2018 [facility] 7:13 AM SERVICE STATION CASHIER [facility] Appearance Normal Normal 08/26/2018 [facility] 7:57 AM [facility]IER [facility] Osmolality, U 745 150 - 1150 08/26/2018 [facility] mOsm/kg 8:26 AM [facility] pH, U 5.9 4.5 - 8.0 08/26/2018 [facility] 8:26 AM [facility] Comment: ----ADDITIONAL INFORMATION---- This test was developed and its performa nce characteristics determined by [facility] in a manner co nsistent with CLIA requirements. This test has not bee n cleared or approved by the U.S. Food and Drug Admin istration. Glucose 5 0 - 15 mg/dL 08/26/2018 7:57 AM [facility] Protein, U 16 <26 mg/dL 08/26/2018 7:57 AM [facility] Comment: ----ADDITIONAL INFORMATION---- On 03/03/2017 the total protein assay me thod changed resulting in approximately a 15% increase in prote in values. Protein/Osmolality 0.21 <0.42 Ratio 08/26/2018 8:26 AM [facility] Comment: ----ADDITIONAL INFORMATION---- On 03/03/2017 the total protein assay me thod changed resulting in approximately a 15% increase in prote in values. Predicted 24 Hr 166 mg/24 h 08/26/2018 8:26 AM [facility] Protein [facility] Predicted Range 41-670 mg/24 h 08/26/2018 8:26 AM [facility] Hemoglobin, QL Negative Negative 08/26/2018 8:20 AM [facility] Specimen Anatomical Collection Method Collection Time Receive d Time (Source) Location / / Volume Laterality Urine (Urine, 08/26/2018 7:13 AM 08/26/20 18 7:13 Clean Catch) SERVICE STATION CASHIER AM SERVICE STATION CASHIER Pedro Donnelly APRN, C.N.P. LAB URINE ORDERABLES Performing Organization Address [facility] Phon e Number [facility]ATORIES - [address] AST (Aspartate Aminotransferase) (08/26/2018 6:48 AM SERVICE STATION CASHIER) [facility] gist Method Time Signature Aspartate 22 8 - 43 08/26/2018 [facility] Aminotransferase U/L 7:50 AM [facility]ICE [facility]IER LABORATORIE S - (AST), S [facility] Specimen Anatomical Collection Method Collection Time Receive d Time (Source) Location / / Volume Laterality Blood (Blood, 08/26/2018 6:48 AM 08/26/20 18 7:10 Venous) SERVICE STATION CASHIER AM SERVICE STATION CASHIER Pedro Donnelly APRN, C.N.P. LAB BLOOD ADD-ON Performing Organization Address [facility] Phon e Number [facility]IES - 200 [place] [address] [facility] (ABNORMAL) Complement, Total (08/26/2018 6:48 AM SERVICE STATION CASHIER) Analysis Performed At Patho logist Time Signature Complement, 23 (L) 30 - 75 08/26/2018 [facility] Total, S U/mL 10:51 AM SERVICE [facility]ATION CASHIER [facility] Specimen Anatomical Collection Method Collection Time Receive d Time (Source) Location / / Volume Laterality Blood (Blood, 08/26/2018 6:48 AM 08/26/20 18 8:15 Venous) SERVICE STATION CASHIER AM SERVICE STATION CASHIER Pedro Donnelly APRN, C.N.P. LAB BLOOD NON ADD-ON Performing Organization Address City/[facility]/ZIP Code Phon e Number [facility] - 200 [place] [address] [facility] (ABNORMAL) Complement C4 (08/26/2018 6:48 AM SERVICE STATION CASHIER) Patholo gist Method Time Signature Complement C4, <3 (L) 14 - 40 08/26/2018 [facility] S mg/dL 9:56 AM SERVICE [facility]ATION CASHIER [facility] Specimen Anatomical Collection Method Collection Time Receive d Time (Source) Location / / Volume Laterality Blood (Blood, 08/26/2018 6:48 AM 08/26/20 18 8:16 Venous) SERVICE STATION CASHIER AM SERVICE STATION CASHIER Pedro Donnelly APRN, Apolonia.N.P. LAB BLOOD ADD-ON Performing Organization Address City/State/ZIP Code Phon e Number [facility] - [address] [place] [address] [facility] Complement C3 (08/26/2018 6:48 AM SERVICE STATION CASHIER) Analysis Performed At Patho logist Time Signature Complement C3, 82 75 - 175 08/26/2018 [facility] S mg/dL 8:48 AM SERVICE STATION CASHIER [facility] Specimen Anatomical Collection Method Collection Time Receive d Time (Source) Location / / Volume Laterality Blood (Blood, 08/26/2018 6:48 AM 08/26/20 18 8:16 Venous) SERVICE STATION CASHIER AM SERVICE STATION CASHIER Pedro Donnelly APRN, C.N.P. LAB BLOOD ADD-ON Performing Organization Address City/[facility]/ZIP Code Phon e Number [facility] - [address] [place] [address] [facility] DNA Double-Stranded (dsDNA) Antibodies, IgG (08/26/2018 6:48 AM SERVICE STATION CASHIER) athologist Signature DNA <12.3 <30.0 08/26/2018 [facility] Double-Stranded (Negative) 2:23 PM [facility] [address] JOSE Ab, IgG, S IU/mL [facility] Specimen Anatomical Collection Method Collection Time Receive d Time (Source) Location / / Volume Laterality Blood (Blood, 08/26/2018 6:48 AM 08/26/20 18 9:52 Venous) SERVICE STATION CASHIER AM SERVICE STATION CASHIER Pedro Donnelly APRN, C.N.P. LAB BLOOD ADD-ON Performing Organization Address City/State/ZIP Code Phon e Number [facility] [address] [place] [phone] 05 [facility] Creatinine with Estimated GFR (08/26/2018 6:48 AM SERVICE STATION CASHIER) Analysis Performed At [facility] Signature Creatinine 0.98 0.59 - 08/26/2018 [facility] 1.04 mg/dL 7:50 AM SERVICE STATION CASHIER LABORATORIES [facility] eGFR-Non 66 >=60 08/26/2018 [facility] Black/ mL/min/BSA 7:50 AM [facility]ICE [facility]ASHIER LABORATORIES [facility] Comment: ----ADDITIONAL INFORMATION---- Estimated GFR calculated using the 2009 CKD_EPI creatinine equation. eGFR-Black/ 76 >=60 mL/min/BSA 08/26/2018 7:50 [facility] Icelandic AM SERVICE [facility]ATION CASHIER LAB[facility]ATORIES [facility] Comment: ----ADDITIONAL INFORMATION---- Estimated GFR calculated using the 2009 CKD_EPI creatinine equation. Specimen Anatomical Collection Method Collection Time Receive d Time (Source) Location / / Volume Laterality Blood (Blood, 08/26/2018 6:48 AM 08/26/20 18 7:10 Venous) SERVICE STATION CASHIER AM SERVICE STATION CASHIER Pedro Donnelly APRN, C.N.P. LAB BLOOD ADD-ON Performing Organization Address City/State/ZIP Code Phon e Number [facility] - [address] [place] [address] [facility] CRP (C-Reactive Protein) (08/26/2018 6:48 AM SERVICE STATION CASHIER) athologist Signature C-Reactive <3.0 <=8.0 mg/L 08/26/2018 [facility] Protein (CRP), 7:50 AM SERVICE [facility]ATION CASHIER LABORATORIES [facility] Specimen Anatomical Collection Method Collection Time Receive d Time (Source) Location / / Volume Laterality Blood (Blood, 08/26/2018 6:48 AM 08/26/20 18 7:10 Venous) SERVICE STATION CASHIER AM SERVICE STATION CASHIER Pedro Donnelly APRN, C.N.P. LAB BLOOD ADD-ON Performing Organization Address City/State/ZIP Code Phon e Number [facility] - [address] [place], [place] [address] [facility] (ABNORMAL) CBC with Differential, Blood (08/26/2018 6:48 AM SERVICE STATION CASHIER) [facility] Method Time Signature Hemoglobin 13.4 11.6 - 08/26/2018 [facility] 15.0 g/dL 7:15 AM SERVICE STATION CASHIER LABORATORIES - [facility] Hematocrit 38.1 35.5 - 08/26/2018 [facility] 44.9 % 7:15 AM [facility]ICE [facility]ASHIER LABORATORIES [facility] Erythrocytes 4.22 3.92 - 08/26/2018 [facility] 5.13 7:15 AM [facility]ICE [facility]IER LABORATORIES - x10(12)/L [facility] MCV 90.3 78.2 - 08/26/2018 [facility] 97.9 fL 7:15 AM [facility] LAB[facility] RBC Distrib 13.9 12.2 - 08/26/2018 [facility] Width 16.1 % 7:15 AM [facility]ICE [facility]ASHIER LABORATORIES - [facility] Platelet Count 115 (L) 157 - 371 08/26/2018 [facility] x10(9)/L 7:15 AM [facility] LAB[facility] Leukocytes 3.8 3.4 - 9.6 08/26/2018 [facility] x10(9)/L 7:15 AM [facility]ICE [facility]ATION [facility]ASHIER LABORATORIES - [facility] Neutrophils 2.74 1.56 - 08/26/2018 [facility] 6.45 7:15 AM [facility]ICE [facility]IER LAB[facility]IES - x10(9)/L [facility] Lymphocytes 0.68 (L) 0.95 - 08/26/2018 [facility] 3.07 7:15 AM [facility] LABORATORIES - x10(9)/L [facility] Monocytes 0.33 0.26 - 08/26/2018 [facility] 0.81 7:15 AM [facility] LAB[facility]IES - x10(9)/L [facility] Eosinophils 0.04 0.03 - 08/26/2018 [facility] 0.48 7:15 AM [facility] LAB[facility]IES - x10(9)/L [facility] Basophils <0.03 0.01 - 08/26/2018 [facility] 0.08 7:15 AM [facility]ICE [facility]IER LAB[facility]IES - x10(9)/L [facility] Specimen Anatomical Collection Method Collection Time Receive d Time (Source) Location / / Volume Laterality Blood (Blood, 08/26/2018 6:48 AM 08/26/20 18 7:10 Venous) SERVICE STATION CASHIER AM SERVICE STATION CASHIER Pedro Donnelly APRN, Apolonia.N.P. LAB BLOOD ADD-ON Performing Organization Address City/[facility]/ZIP Code Phon e Number [facility] - [address] Sedimentation Rate (08/26/2018 6:47 AM SERVICE STATION CASHIER) [facility] gist Method Time Signature Sedimentation 27 0 - 29 08/26/2018 [facility] Rate, B mm/1 h 8:38 AM SERVICE STATION CASHIER LABORATORIES - [facility] Specimen Anatomical Collection Method Collection Time Receive d Time (Source) Location / / Volume Laterality Blood (Blood, 08/26/2018 6:47 AM 08/26/20 18 7:10 Venous) SERVICE STATION CASHIER AM SERVICE STATION CASHIER Pedro Donnelly APRN, C.N.P. LAB BLOOD ADD-ON Performing Organization Address City/State/ZIP Code Phon e Number [facility] - [address] documented in this encounter Visit Diagnoses Diagnosis Lupus Systemic Erythematosus (HCC) - Afia justice Hepatitis Autoimmune (HCC) Dependence Nicotine High Risk Medication documented in this encounter
--- OUTSIDE RECORDS SUMMARY | 2022-05-22 16:09 | XMS_ITS | Encounter Summary ---
:1965 Author Organization [facility] Address [address] [place] [address] Care Team Providers Name Role Phone Unavailable Primary Care Provider Unavailable Encounter Details Date Type Department Care Team Description 02/24/2013 Hospital Encounter HX NO MAPPING Social History [...] How often do you attend moravian or yazidi services? Never 09/23/2021 Do you [...] or slept in a custodial (including now)? Sex Assigned at Date Recorded Female 03/09/2018 3:30 PM CDT documented as of this encounter Medications at Time of Discharge Medication Sig Dispensed Refills Start Date End Date calcium carbonate-vit Take 1 tablet by 0 08/25/20 12 D3-min 600 mg calcium- 800 mouth daily. unit tablet documented as of this encounter Plan of Treatment Upcoming Encounters Date Type Specialty Care Team Description 07/08/2022 Appointment Laboratory Medicine Pedro Donnelly, ANTHONY, C.N.P. [address] [place] [phone] (Claudia vera) 07/08/2022 Office Visit Gastroenterology and Collin Trivedi Hepatology Chloe [address] [place] [phone] (Claudia vera) documented as of this encounter Visit Diagnoses Not on filedocumented in this encounter
--- OUTSIDE RECORDS SUMMARY | 2022-05-22 16:09 | XMS_ITS | Encounter Summary ---
:1965 Author Organization [facility] Address [address] [place] [address] Care Team Providers Name Role Phone Elsewhere, Pcp Primary Care Provider Unavailable Encounter Details Date Type Department Care Team Description 08/26/2013 Historical Ophthalmology RST OPH Rock Mancuso O.D. [address] [place], [place] [phone] (Wo rk) Social History [...] How often do you attend faith or sabianist services? Never 09/23/2021 Do you [...] or slept in a long-term (including now)? Sex Assigned at Date Recorded Female 03/09/2018 3:30 PM CDT documented as of this encounter Progress Notes Rock Mancuso O.D. - 08/26/2013 8:33 AM CST Eye General CHIEF COMPLAINT Plaquenil screening. HISTORY OF PRESENT ILLNESS Patient feels like glasses are not working as well as they should be. She does feel though that she has to have them on all the time. Denies any ocular pain, flashes or changes floaters. IMPRESSION / REPORT / PLAN The following tests have been completed and need interpretation. Melia visual field: No field defects noted OCT macula, no pigment layer defects noted Autofluorescence: No AF defect noted #1 High risk medication/plaquenil No evidence of toxicity Monitor again with OCT and visual field in 2017 DIAGNOSIS #1 High risk medication/plaquenil [facility] [id number] Status: Fnl documented in this encounter Plan of Treatment Upcoming Encounters Date Type Specialty Care Team Description 07/08/2022 Appointment Laboratory Medicine Pdero Donnelly, METAL ENGRAVER, C.N.P. [address] [place] [phone] (Claudia rk) 07/08/2022 Office Visit Gastroenterology and Collin Trivedi, Hepatology M.DSarina [address] [place] [phone] (Claudia rk) documented as of this encounter Visit Diagnoses Not on filedocumented in this encounter Additional Health Concerns Infection Onset Date Last Indicated Resolved Time COVID19 Pending 01/23/2020 01/23/2020 02/15/2020 8:07 AM CDT documented as of this encounter Care Teams Customer Assistance Representative Relationship Specialty Start Date End Date Elsewhere, Pcp PCP - General Family Medicine 03/25/21 documented as of this encounter
--- OUTSIDE RECORDS SUMMARY | 2022-05-22 16:09 | XMS_ITS | Encounter Summary ---
:1965 Author Organization [facility] Address [address] [place] [address] Care Team Providers Name Role Phone Elsewhere, Pcp Primary Care Provider Unavailable Encounter Details Date Type Department Care Team Description 08/09/2014 Historical Ophthalmology RST OPH Lori Chamorro M.D. [address] [place], [place] [phone] (Wo rk) Social History [...] How often do you attend congregation or baptist services? Never 09/23/2021 Do you [...] documented as of this encounter Progress Notes Lori Chamorro - 08/09/2014 7:04 AM CST Eye General CHIEF COMPLAINT Plaquenil HISTORY OF PRESENT ILLNESS She has been on Plaquenil since 2011 (400 mg/day). No vision changes. Most recent refraction 05/21. Pigmented caruncle removed by Dr. Morocho in [place] 12/19. IMPRESSION / REPORT / PLAN #1 High risk medication, hydroxychloroquine No evidence of toxicity. Annual exams. No ancillary testing likely necessary until 2016. DIAGNOSIS #1 High risk medication, hydroxychloroquine CDM Reports - [facility] Id: [id number] Status: Fnl documented in this encounter Plan of Treatment Upcoming Encounters Date Type Specialty Care Team Description 07/08/2022 Appointment Laboratory Medicine Pedro Donnelly, CONFERENCE ORGANIZER, C.N.P. [address] [place] [phone] (Claudia vera) 07/08/2022 Office Visit Gastroenterology and Collin Trivedi Hepatology M.DSarina [address] [place] [phone] (Claudia vera) documented as of this encounter Visit Diagnoses Not on filedocumented in this encounter Additional Health Concerns Infection Onset Date Last Indicated Resolved Time COVID19 Pending 01/23/2020 01/23/2020 02/15/2020 8:07 AM CDT documented as of this encounter Care Teams Dental Director Relationship Specialty Start Date End Date Elsewhere, Pcp PCP - General Family Medicine 03/25/21 documented as of this encounter
--- OUTSIDE RECORDS SUMMARY | 2022-05-22 16:09 | XMS_ITS | Encounter Summary ---
:1965 Author Organization [facility] Address [address] [place] [address] Care Team Providers Name Role Phone Unavailable Primary Care Provider Unavailable Encounter Details Date Type Department Care Team Description 02/26/2015 Hospital Encounter HX NO MAPPING Social History [...] How often do you attend jainism or jainism services? Never 09/23/2021 Do you [...] Medicine Pedro Donnelly, ANTHONY, C.N.P. [address] [place] [phone] (Claudia vera) 07/08/2022 Office Visit Gastroenterology and Collin Trivedi Hepatology Chloe [address] [place] [phone] (Claudia vera) documented as of this encounter Visit Diagnoses Not on filedocumented in this encounter
--- OUTSIDE RECORDS SUMMARY | 2022-05-22 16:09 | XMS_ITS | Encounter Summary ---
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 Thrombocytopenia (HCC) Pathology, [place] [address] [place] [address], in [facility] [phone] [place] [address] [address] [facility] (Work) [place], [place] [phone] [address] (Fax) [phone] Social History Tobacco Use Types Packs/Day Years [...] How often do you attend zoroastrianism or denominational services? Never 09/23/2021 Do you [...] to pay for the very basics like [employer] hat hard 09/23/2021 food, housing, medical care, [...] 800 unit tablet azaTHIOprine (IMURAN) 50 Take 2.5 tablets 225 tablet 0 03/1506/13/2018 mg tablet (125 mg total) by mouth daily. FLUoxetine (for_PROzac) Take 1 capsule by 0 12/1712/22/2018 20 mg capsule mouth daily. naproxen sodium (ALEVE) Take 2 capsules by 0 05/1008/26/2018 220 mg capsule mouth as needed. omeprazole Take 1 capsule by 0 07/09/2017 018 (for_PriLOSEC) 40 mg mouth daily. capsule documented as of this encounter Plan of Treatment Upcoming Encounters Date Type Specialty Care Team Description 07/08/2022 Appointment Laboratory Medicine Pedro Donnelly, DEVICE PROCESSING ENGINEER, C.N.P. [address] [place] [phone] (Claudia vera) 07/08/2022 Office Visit Gastroenterology and Collin Trivedi Hepatology Chloe [address] [place] [phone] (Claudia vera) documented as of this encounter Procedures Procedure Name Priority Date/Time Associated Diagnosis Comme nts MICROSCOPIC Routine 05/13/2018 8:29 AM Results f or this AUTOMATED CDT procedure are i n the results section. URINALYSIS WITH Routine 05/13/2018 8:29 AM Hepatitis Autoimmun e Results for this MICROSCOPIC CDT (HCC) procedure are in Lupus Systemic the results Erythematosus (H CC) section. Thrombocytopenia (HCC) documented in this encounter Results Microscopic Automated (05/13/2018 8:29 AM CDT) P athologist Signature Microscopy Normal 05/13/2018 [facility] 9:51 AM CDT [facility] WBC 1-3 /hpf 05/13/2018 [facility] 9:51 AM CDT LABORATORIES [facility] Comment: ----REFERENCE VALUE---- 1-3 ??(Males) 1-10 (Females) Squamous Epithelial 1-3 /hpf 05/13/2018 9:51 AM C DT [facility] Cells, U - [facility] PUS Specimen Anatomical Collection Method Collection Time Receive d Time (Source) Location / / Volume Laterality Urine 05/13/2018 8:29 AM 8 8:29 CDT AM CDT Pedro Donnelly APRN, C.N.P. LAB URINE ORDERABLES Performing Organization Address City/State/ZIP Code Phon e Number [facility]IES - [address] [place] [address] 05 [facility] (ABNORMAL) Urinalysis with Microscopic (05/13/2018 8:29 AM CDT) Patholo gist Method Time Signature Source Midstream 05/13/2018 [facility] 8:29 AM CDT [facility] Appearance Normal Normal 05/13/2018 [facility] 9:08 AM CDT [facility] Osmolality, U 832 150 - 1150 05/13/2018 [facility] mOsm/kg 9:26 AM CDT [facility] pH, U 5.6 4.5 - 8.0 05/13/2018 [facility] 9:26 AM CDT [facility] Comment: ----ADDITIONAL INFORMATION---- This test was developed and its performa nce characteristics determined by [facility] in a manner co nsistent with CLIA requirements. This test has not bee n cleared or approved by the U.S. Food and Drug Admin istration. Glucose 10 0 - 15 mg/dL 05/13/2018 9:08 AM CDT [facility] Protein, U 28 (H) <26 mg/dL 05/13/2018 9:08 AM CDT [facility] Comment: ----ADDITIONAL INFORMATION---- On 03/03/2017 the total protein assay me thod changed resulting in approximately a 15% increase in prote in values. Protein/Osmolality 0.34 <0.42 Ratio 05/13/2018 9:26 AM CDT [facility] Comment: ----ADDITIONAL INFORMATION---- On 03/03/2017 the total protein assay me thod changed resulting in approximately a 15% increase in prote in values. Predicted 24 Hr 249 mg/24 h 05/13/2018 9:26 AM [facility] Protein T [facility] Predicted Range 61-1008 mg/24 h 05/13/2018 9:26 AM [facility] Hemoglobin, QL Negative Negative 05/13/2018 9:51 AM [facility] Specimen Anatomical Collection Method Collection Time Receive d Time (Source) Location / / Volume Laterality Urine (Urine, 05/13/2018 8:29 AM 05/13/20 18 8:29 Clean Catch) CDT AM CDT Pedro Donnelly APRN C.N.P. LAB URINE ORDERABLES Performing Organization Address City/State/ZIP Code Phon e Number [facility] - [address] [place] [address] 05 [facility] documented in this encounter Visit Diagnoses Diagnosis Hepatitis Autoimmune (HCC) Lupus Systemic Erythematosus (HCC) Thrombocytopenia (HCC) documented in this encounter
--- OUTSIDE RECORDS SUMMARY | 2022-05-22 16:09 | XMS_ITS | Encounter Summary ---
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 Thrombocytopenia (HCC) Pathology, [place] [address] [place] [address], in [facility] [phone] [place] [address] [address] [facility] (Work) [place], [place] [phone] (Fax) [phone] Social History Tobacco Use Types Packs/Day Years [...] How often do you attend advent or mandaeism services? Never 09/23/2021 Do you belong to [...] to pay for the very basics like [employer] hat hard 09/23/2021 food, housing, medical care, [...] daily. capsule documented as of this encounter Progress Notes Pedro Donnelly APRN, C.N.P. - 05/13/2018 11:59 PM CDT Results show a drop in complement total, C3, and C4. She was describing increased symptoms of arthritis. Dr. Bal is away until Thursday at which time I will review labs and clinical findings and we will make a treatment plan. documented in this encounter Plan of Treatment Upcoming Encounters Date Type Specialty Care Team Description 07/08/2022 Appointment Laboratory Medicine Pedro Donnelly APRN, C.N.P. [address] [place] [phone] (Wo rk) 07/08/2022 Office Visit Gastroenterology and Collin Trivedi, Hepatology Chloe [address] [place] [phone] (Claudia vera) documented as of this encounter Procedures Procedure Name Priority Date/Time Associated Diagnosis Comme nts SPSMA RESULT Routine 05/13/2018 7:44 Thrombocytopenia (HCC) Re sults for AM CDT this procedure are in the results section. DNA DOUBLE-STRANDED Routine 05/13/2018 7:44 Hepatitis Autoimmu ne Results for (DSDNA) ABS, IGG, S AM CDT (HCC) this procedure Lupus Systemic are in the Erythematosus (H CC) results Thrombocytopenia (HCC) secti on. SEDIMENTATION RATE, B Routine 05/13/2018 7:44 Hepatitis Autoim mune Results for AM CDT (HCC) this procedure Lupus Systemic are in the Erythematosus (H CC) results Thrombocytopenia (HCC) secti on. CBC WITH DIFFERENTIAL, Routine 05/13/2018 7:44 Hepatitis Autoi mmune Results for B AM CDT (HCC) this procedure Lupus Systemic are in the Erythematosus (H CC) results Thrombocytopenia (HCC) secti on. COMPL, TOT, S Routine 05/13/2018 7:44 Hepatitis Autoimmune Res ults for AM CDT (HCC) this procedure Lupus Systemic are in the Erythematosus (H CC) results Thrombocytopenia (HCC) secti on. COMPL C3, S Routine 05/13/2018 7:44 Hepatitis Autoimmune Resu lts for AM CDT (HCC) this procedure Lupus Systemic are in the Erythematosus (H CC) results Thrombocytopenia (HCC) secti on. COMPLEMENT C4, S Routine 05/13/2018 7:44 Hepatitis Autoimmune Results for AM CDT (HCC) this procedure Lupus Systemic are in the Erythematosus (H CC) results Thrombocytopenia (HCC) secti on. C-REACTIVE PROTEIN Routine 05/13/2018 7:44 Hepatitis Autoimmun e Results for (CRP), S/P AM CDT (HCC) this procedure Lupus Systemic are in the Erythematosus (H CC) results Thrombocytopenia (HCC) secti on. ALANINE Routine 05/13/2018 7:44 Hepatitis Autoimmune Resu lts for AMINOTRANSFERASE (ALT), AM CDT (HCC) this procedure S/P Lupus Systemic are in the Erythematosus (H CC) results Thrombocytopenia (HCC) secti on. ASPARTATE Routine 05/13/2018 7:44 Hepatitis Autoimmune Resu lts for AMINOTRANSFERASE (AST), AM CDT (HCC) this procedure S/P Lupus Systemic are in the Erythematosus (H CC) results Thrombocytopenia (HCC) secti on. ALKALINE PHOSPHATASE, Routine 05/13/2018 7:44 Hepatitis Autoim mune Results for S/P AM CDT (HCC) this procedure Lupus Systemic are in the Erythematosus (H CC) results Thrombocytopenia (HCC) secti on. CREATININE WITH EGFR, Routine 05/13/2018 7:44 Hepatitis Autoim mune Results for S/P AM CDT (HCC) this procedure Lupus Systemic are in the Erythematosus (H CC) results Thrombocytopenia (HCC) secti on. documented in this encounter Results (ABNORMAL) Morphology Evaluation (Special Smear) (05/13/2018 7:44 AM CDT) [facility] Method Time Signature Neutrophilic Segs 72 50 - 75 % 05/13/2018 [facility] and Bands 11:15 AM CDT [facility] Lymphocytes 22 18 - 42 % 05/13/2018 [facility] 11:15 AM CDT [facility] Monocytes 5 2 - 11 % 05/13/2018 [facility] 11:15 AM CDT [facility] Myelocytes 1 (H) <0.5 % 05/13/2018 [facility] 11:15 AM CDT [facility] Manual Absolute 1.94 1.56 - 05/13/2018 [facility] Neutrophil Count 6.45 11:15 AM CDT LABORATORI ES - x10(9)/L [facility] Comment: ----ADDITIONAL INFORMATION---- The manual absolute neutrophil count is derived from a manual differential count and therefore is not exactly comparable to the automated absolute joslyn trophil count. Interpretation SeeComment 05/13/2018 11:15 AM CDT [facility] Comment: Peripheral blood smear reviewed; no diag nostic abnormalities are seen. No schistocytes are seen. Reviewed by: Lyle 05/13/2018 11:15 AM CDT [facility] Specimen Anatomical Collection Method Collection Time Receive d Time (Source) Location / / Volume Laterality Blood (Blood, 05/13/2018 7:44 AM 05/13/20 18 8:13 Venous) CDT AM CDT Robert Kumar APRNN.P. LAB BLOOD ADD-ON Performing Organization Address City/[facility]/ZIP Code Phon e Number [facility] LABORATORIES - [address] [place] [address] [facility] Alkaline Phosphatase (05/13/2018 7:44 AM CDT) P athologist Signature Alkaline 76 41 - 108 05/13/2018 [facility] Phosphatase, S U/L 8:56 AM CDT LABORATORIES - [facility] Specimen Anatomical Collection Method Collection Time Receive d Time (Source) Location / / Volume Laterality Blood (Blood, 05/13/2018 7:44 AM 05/13/20 18 8:09 Venous) CDT AM CDT Robert Kumar APRNN.P. LAB BLOOD ADD-ON Performing Organization Address City/[facility]/ZIP Code Phon e Number [facility] - [address] [place] [address] [facility] ALT (Alanine Aminotransferase) (05/13/2018 7:44 AM CDT) [facility] gist Method Time Signature Alanine 17 7 - 45 05/13/2018 [facility] Aminotransferase U/L 8:56 AM CDT LABORATORIE S - (ALT), [facility] Specimen Anatomical Collection Method Collection Time Receive d Time (Source) Location / / Volume Laterality Blood (Blood, 05/13/2018 7:44 AM 05/13/20 18 8:09 Venous) CDT AM CDT Robert Kumar APRNN.P. LAB BLOOD ADD-ON Performing Organization Address City/[facility]/ZIP Code Phon e Number [facility]ATORIES - [address] [place] [address] [facility] AST (Aspartate Aminotransferase) (05/13/2018 7:44 AM CDT) Patholo gist Method Time Signature Aspartate 23 8 - 43 05/13/2018 [facility] Aminotransferase U/L 8:56 AM CDT LABORATORIE S - (AST), S [facility] Specimen Anatomical Collection Method Collection Time Receive d Time (Source) Location / / Volume Laterality Blood (Blood, 05/13/2018 7:44 AM 05/13/20 18 8:09 Venous) CDT AM CDT Robert Kumar APRNN.P. LAB BLOOD ADD-ON Performing Organization Address City/[facility]/ZIP Code Phon e Number [facility] - [address] [place] [address] [facility] (ABNORMAL) Complement, Total (05/13/2018 7:44 AM CDT) Analysis Performed At Patho logist Time Signature Complement, 16 (L) 30 - 75 05/13/2018 [facility] Total, S U/mL 10:52 AM CDT [facility] Specimen Anatomical Collection Method Collection Time Receive d Time (Source) Location / / Volume Laterality Blood (Blood, 05/13/2018 7:44 AM 05/13/20 18 9:02 Venous) CDT AM CDT Robert Kumar APRNN.P. LAB BLOOD NON ADD-ON Performing Organization Address City/State/ZIP Code Phon e Number [facility] - [address] [place] [address] [facility] (ABNORMAL) Complement C4 (05/13/2018 7:44 AM CDT) [facility] Method Time Signature Complement C4, <3 (L) 14 - 40 05/13/2018 [facility] S mg/dL 1:26 PM CDT [facility] Specimen Anatomical Collection Method Collection Time Receive d Time (Source) Location / / Volume Laterality Blood (Blood, 05/13/2018 7:44 AM 05/13/20 18 9:15 Venous) CDT AM CDT Pedro Donnelly APRN, Apolonia.N.P. LAB BLOOD ADD-ON Performing Organization Address City/[facility]/ZIP Code Phon e Number [facility]ATORIES - [address] [place] [address] [facility] (ABNORMAL) Complement C3 (05/13/2018 7:44 AM CDT) Patholo gist Method Time Signature Complement C3, 66 (L) 75 - 175 05/13/2018 [facility] S mg/dL 12:48 PM CDT [facility] Specimen Anatomical Collection Method Collection Time Receive d Time (Source) Location / / Volume Laterality Blood (Blood, 05/13/2018 7:44 AM 05/13/20 18 9:15 Venous) CDT AM CDT Apolonia Kumar APRN.N.P. LAB BLOOD ADD-ON Performing Organization Address City/[facility]/ZIP Code Phon e Number [facility]IES - [address] [place] [address] [facility] DNA Double-Stranded (dsDNA) Antibodies, IgG (05/13/2018 7:44 AM CDT) P athologist Signature DNA 14.6 <30.0 05/13/2018 [facility] Double-Strande (Negative) 3:27 PM CDT LABORATORIES - d Ab, IgG, S IU/mL [facility] Specimen Anatomical Collection Method Collection Time Receive d Time (Source) Location / / Volume Laterality Blood (Blood, 05/13/2018 7:44 AM 05/13/20 18 9:10 Venous) CDT AM CDT Apolonia Kumar APRN.N.P. LAB BLOOD ADD-ON Performing Organization Address [facility] Phon e Number [facility]ORATORIES - [address] [place] [address] [facility] Creatinine with Estimated GFR (05/13/2018 7:44 AM CDT) Analysis Performed At Patho logist Time Signature Creatinine 0.87 0.59 - 05/13/2018 [facility] 1.04 mg/dL 8:56 AM CDT LABORATORIES - [facility] eGFR-Non 76 >=60 05/13/2018 [facility] Black/ mL/min/BSA 8:56 AM CDT LABORATORIES - [facility] Comment: ----ADDITIONAL INFORMATION---- Estimated GFR calculated using the 2009 CKD_EPI creatinine equation. eGFR-Black/ 88 >=60 mL/min/BSA 05/13/2018 8:56 [facility] Kyrgyz AM CDT LABORATORIES - [facility] Comment: ----ADDITIONAL INFORMATION---- Estimated GFR calculated using the 2009 CKD_EPI creatinine equation. Specimen Anatomical Collection Method Collection Time Receive d Time (Source) Location / / Volume Laterality Blood (Blood, 05/13/2018 7:44 AM 05/13/20 18 8:09 Venous) CDT AM CDT Apolonia Kumar APRN.N.P. LAB BLOOD ADD-ON Performing Organization Address City/[facility] Phon e Number [facility]ORATORIES - [address] [place] [address] [facility] CRP (C-Reactive Protein) (05/13/2018 7:44 AM CDT) P athologist Signature C-Reactive <3.0 <=8.0 mg/L 05/13/2018 [facility] Protein (CRP), 8:56 AM CDT LABORATORIES - S [facility] Specimen Anatomical Collection Method Collection Time Receive d Time (Source) Location / / Volume Laterality Blood (Blood, 05/13/2018 7:44 AM 05/13/20 18 8:09 Venous) CDT AM CDT Pedro Donnelly APRN, Apolonia.N.P. LAB BLOOD ADD-ON Performing Organization Address City/[facility]/ZIP Code Phon e Number [facility]IES - [address] [place] [address] [facility] Sedimentation Rate (05/13/2018 7:44 AM CDT) [facility] Method Time Signature Sedimentation 3 0 - 29 05/13/2018 [facility] Rate, B mm/1 h 9:22 AM CDT LABORATORIES - [facility] Specimen Anatomical Collection Method Collection Time Receive d Time (Source) Location / / Volume Laterality Blood (Blood, 05/13/2018 7:44 AM 05/13/20 18 8:14 Venous) CDT AM CDT Pedro Donnelly APRN, C.N.P. LAB BLOOD ADD-ON Performing Organization Address City/State/ZIP Code Phon e Number [facility]ORATORIES - [address] [place] [address] [facility] (ABNORMAL) CBC with Differential, Blood (05/13/2018 7:44 AM CDT) [facility] Method Time Signature Hemoglobin 13.5 11.6 - 05/13/2018 [facility] 15.0 g/dL 9:21 AM CDT LABORATORIES - [facility] Hematocrit 38.0 35.5 - 05/13/2018 [facility] 44.9 % 9:21 AM CDT LABORATORIES - [facility] Erythrocytes 4.09 3.92 - 05/13/2018 [facility] 5.13 9:21 AM CDT LABORATORIES - x10(12)/L [facility] MCV 92.9 78.2 - 05/13/2018 [facility] 97.9 fL 9:21 AM CDT LABORATORIES [facility] RBC Distrib 13.6 12.2 - 05/13/2018 [facility] Width 16.1 % 9:21 AM CDT LABORATORIES - [facility] Platelet Count 99 (L) 157 - 371 05/13/2018 [facility] x10(9)/L 9:21 AM CDT LABORATORIES - [facility] Leukocytes 2.7 (L) 3.4 - 9.6 05/13/2018 [facility] x10(9)/L 9:21 AM CDT LABORATORIES - [facility] Neutrophils 1.85 1.56 - 05/13/2018 [facility] 6.45 9:21 AM CDT LABORATORIES - x10(9)/L [facility] Lymphocytes 0.56 (L) 0.95 - 05/13/2018 [facility] 3.07 9:21 AM CDT LABORATORIES - x10(9)/L [facility] Monocytes 0.22 (L) 0.26 - 05/13/2018 [facility] 0.81 9:21 AM CDT LABORATORIES - x10(9)/L [facility] Eosinophils 0.04 0.03 - 05/13/2018 [facility] 0.48 9:21 AM CDT LABORATORIES - x10(9)/L [facility] Basophils <0.03 0.01 - 05/13/2018 [facility] 0.08 9:21 AM CDT LABORATORIES - x10(9)/L [facility] Specimen Anatomical Collection Method Collection Time Receive d Time (Source) Location / / Volume Laterality Blood (Blood, 05/13/2018 7:44 AM 05/13/20 18 8:13 Venous) CDT AM CDT Pedro Donnelly APRN, C.N.P. LAB BLOOD ADD-ON Performing Organization Address City/State/ZIP Code Phon e Number [facility] LABORATORIES - [address] [place], [place] [address] [facility] documented in this encounter Visit Diagnoses Diagnosis Hepatitis Autoimmune (HCC) Lupus Systemic Erythematosus (HCC) Thrombocytopenia (HCC) documented in this encounter
--- OUTSIDE RECORDS SUMMARY | 2022-05-22 16:09 | XMS_ITS | Encounter Summary ---
:1965 Author Organization [facility] Address [address] [place] [address] Care Team Providers Name Role Phone Unavailable Primary Care Provider Unavailable Encounter Details Date Type Department Care Team Description 05/08/2015 Hospital Encounter HX NO MAPPING Social History [...] How often do you attend shinto or taoist services? Never 09/23/2021 Do you [...] Sign Reading Time Taken Comments Blood Pressure 152/62 05/08/2015 3:00 PM CDT Pulse 66 05/08/2015 12:32 PM CDT Temperature - - Respiratory Rate 16 05/08/2015 3:00 PM CDT Oxygen Saturation - - Inhaled Oxygen Concentration - - Weight 109 kg (239 lb 10.2 oz) 05/08/2015 5:49 AM CDT Height 161 cm (5' 3.39) 05/08/2015 5:49 AM CDT Body Mass Index 41.93 05/08/2015 5:49 AM CDT documented in this encounter Medications at Time of Discharge Medication Sig Dispensed Refills Start Date End Date calcium carbonate-vit Take 1 tablet by 0 08/25/20 12 D3-min 600 mg calcium- 800 mouth daily. unit tablet documented as of this encounter Plan of Treatment Upcoming Encounters Date Type Specialty Care Team Description 07/08/2022 Appointment Laboratory Medicine Pedro Donnelly, SINGLE CORNER CUTTER, C.N.P. [address] [place] [phone] (Claudia vera) 07/08/2022 Office Visit Gastroenterology and Collin Trivedi Hepatology M.DSarina [address] [place] [phone] (Claudia vera) documented as of this encounter Visit Diagnoses Not on filedocumented in this encounter
--- OUTSIDE RECORDS SUMMARY | 2022-05-22 16:09 | XMS_ITS | Encounter Summary ---
:1965 Author Organization [facility] Address [address] [place] [address] Care Team Providers Name Role Phone Elsewhere, Pcp Primary Care Provider Unavailable Encounter Details Date Type Department Care Team Description 08/22/2015 Historical Ophthalmology RST OPH Remi, Ch jasprete Burgos O.D. [address] [place], [place] [phone] (Wo rk) Social History [...] How often do you attend methodist or zoroastrian services? Never 09/23/2021 Do you [...] documented as of this encounter Progress Notes Denise Khalil O.D. - 08/22/2015 8:00 AM CST Eye General CHIEF COMPLAINT redness, both eyes HISTORY OF PRESENT ILLNESS History of plaquenil use since 2011 after diagnosed with Lupus. Currently taking 400mg daily. Redness; both eyes; at times; gradual notice; does not use any artificial tears. Denies vision acuity concerns at distance or near with either eye. Denies flashes of light, floaters, pain or pressure with either eye. Denies diplopia. CBN: As above. No use of eye drops. Notices redness at night. IMPRESSION / REPORT / PLAN #1 High risk medication, hydroxychloroquine No evidence of toxicity. Reviewed Annual exams. No ancillary testing likely necessary until 2016. Plan: Monitor yearly #2 Dry eye Reviewed Plan:use of artificial tears RTC 1 year or sooner with concerns. DIAGNOSIS #1 High risk medication, hydroxychloroquine #2 Dry eye CDM Reports - EYEGEN Id: [id number] Status: Fnl documented in this encounter Plan of Treatment Upcoming Encounters Date Type Specialty Care Team Description 07/08/2022 Appointment Laboratory Medicine Pedro Donnelly, CYLINDER GRINDER, C.N.P. 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
--- OUTSIDE RECORDS SUMMARY | 2022-05-22 16:09 | XMS_ITS | Encounter Summary ---
:1965 Author Organization [facility] Address [address] [place] [address] Care Team Providers Name Role Phone Unavailable Primary Care Provider Unavailable Reason for Visit Reason Onset Date Comments Outside Labs 01/21/2018 Encounter Details Date Type Department Care Team Description 01/21/2018 Clinical Communication Division of Sudha Rhoades Out side Labs Rheumatology in [place], [facility] [place], [place] [address] [facility] [address] [place] [phone] Social History Tobacco Use Types Packs/Day Years [...] How often do you attend samaritan or moravian services? Never 09/23/2021 Do you [...] this encounter Miscellaneous Notes Telephone Encounter - Suhda Rhoades R.N. - 01/21/2018 1:44 PM CDT ASSESSMENT Rheumatology monitoring labs completed at an external lab on 01/20/2018 were reviewed per Rheumatology division parameters. All monitored labs are within parameters. Labs reviewed: CBC with differential, AST External labs were sent for scanning. PLAN Patient to continue with current plan of care. documented in this encounter Plan of Treatment Upcoming Encounters Date Type Specialty Care Team Description 07/08/2022 Appointment Laboratory Medicine Pedro Donnelly APRN, C.N.P. [address] [place] [address] (Claudia rk) 07/08/2022 Office Visit Gastroenterology and Collin Trivedi Hepatology Chloe [address] [place] [address] (Claudia rk) documented as of this encounter Visit Diagnoses Not on filedocumented in this encounter
--- OUTSIDE RECORDS SUMMARY | 2022-05-22 16:10 | XMS_ITS ---
:1965 Author Care Team Providers Name Role Phone JASWINDER ROSE DEION Primary Care Provider [phone] Allergies Code Code System Name Reaction Severity Status Onset NKDA ? Medications Name Status Start Date Stop Date ? ? amoxicillin 500 mg capsule Unknown ? Not a vailable TAKE 1 CAPSULE BY MOUTH FOUR TIMES DAILY UNTIL ALL GONE azathioprine 50 mg tablet Active ? Not av ailable colestipol 1 gram tablet Active ? Not delta ilable hydroxychloroquine 200 mg tablet Active ? Not available TAKE 2 TABLETS BY MOUTH DIRECTED. TA KE 1 TAB DAILY FOR 2 WEEKS THEN 2 TABS DAILY. lisinopril 20 mg-hydrochlorothiazide 25 mg tablet Active ? Not available TAKE 1 TABLET BY MOUTH EVERY DAY mycophenolate mofetil 500 mg tablet Active ? Not available TAKE 2 TABLETS BY MOUTH TWICE A DAY Myrbetriq 50 mg tablet,extended release Active ? Not available TAKE 1 TABLET BY MOUTH EVERY DAY PA approved! omeprazole 40 mg capsule,delayed release Active ? Not available oxybutynin chloride ER 10 mg tablet,extended release 24 hr Activ e ? Not available TAKE 1 TABLET BY MOUTH EVERY DAY pravastatin 40 mg tablet Active ? Not delta ilable TAKE 1 TABLET BY MOUTH EVERY DAY prednisone 5 mg tablet Active ? Not avail able TAKE 1 TABLET BY MOUTH 2 TIMES A DAY. X 1 MONTH, THEN TAKE 1 TA BLET PER DAY valacyclovir 500 mg tablet Active ? Not a vailable TAKE 1 TABLET BY MOUTH TWICE DAILY FOR 3 DAYS/OCCURANCE. Problems Name Status Onset Date Source ? Urge Incontinence of Urine Active 06/06/2021 ? Urgent Desire to Urinate Active 06/06/2021 ? Overactive Bladder Active 06/06/2021 ? Procedures Date Name Performed by ? 12/22/2018 Diagnostic Colonoscopy Information not a vailable Notes: Colonoscopy Results Lab Results None recorded. Past Encounters 12/21/2020 Urgent Desire to Urinate; Urge Incontine nce of Urine; Overactive Bladder Kali Elizlade MD: [address], [address], [place] [address], Ph. Social History Tobacco Smoking Status Vaccine List Vaccine Type COVID-19 (SARS-COV-2) vaccine, unspecifi ed 12/20/2020 Plan of Care Reminders Provider Appointments None recorded. ? ? Lab None recorded. ? ? Referral None recorded. ? ? Procedures None recorded. ? ? Surgeries None recorded. ? ? Imaging None recorded. ? ? Vitals Height Weight BMI 5 ft 5 in 230 lbs 38.3 kg/m2
[2022-05-22 17:48] LABS: Chloride* 103 mmol/L (96-114); Potassium* 4.1 mmol/L (3.6-5.1); Sodium* 140 mmol/L (135-149)
[2022-05-22 17:50] LABS: Cholesterol* 158 mg/dL (90-199)
[2022-05-22 17:51] LABS: Blood Urea Nitrogen* 27 mg/dL (7-30); Carbon Dioxide* 27 mmol/L (20-32); Creatinine* 1.1 mg/dL (0.5-1.5); Estimated Glomerular Filt Rate 59 ml/min; Glucose* 81 mg/dL (60-115); Triglycerides* 125 mg/dL (40-149)
[2022-05-22 17:52] LABS: Calcium* 9.1 mg/dL (8.4-10.6); HDL Cholesterol* 60 mg/dL (>=50); LDL Cholesterol Calculated 73 mg/dL (<100)
== END 2022-05-22 15:54 | disposition home or self-care (01) ==
PROVIDERS: PCP Internal Medicine; Visit Provider Internal Medicine
DX: Z00.00 Encounter for general adult medical examination without abnormal findings (principal); E66.9 Obesity, unspecified; I10 Essential (primary) hypertension; M32.9 Systemic lupus erythematosus, unspecified; M85.80 Other specified disorders of bone density and structure, unspecified site; K74.60 Unspecified cirrhosis of liver; K75.4 Autoimmune hepatitis
CPT/HCPCS: 80048; 80061

== ENCOUNTER 2023-04-30 15:57 | Outpatient (CLI) | payer BC, SELFPAY ==
--- OUTSIDE RECORDS SUMMARY | 2023-04-30 16:00 | XMS_ITS | Continuity of Care Document ---
Author Name Unknown Organization [facility] [address] [address] [place] [address] Phone Care Team Providers Care Stock Clipper Name Role Phone Mario Alberto Otoole DO Unavailable Unavailable Results Test Name Date and Time Measure Units Reference Range Abnormal Flag Status Comments Panel Description: CCP Antibodies IgG/IgA Final CCP Antibodies IgG/IgA 2 14:05:00 8 units 0-19 Final Negative <20 Weak positive 20 - 39 Moderate positive 40 - 59 Strong positive >59 Panel Description: CBC Final WBC 2 15:19:00 5.4 K/uL 3.5-10.8 Final Lymphocyte% 2 15:19:00 26.1 % 15.1-43.0 Final Mid% 2 15:19:00 5.0 % 1.0-18.0 Final Gran% 2 15:19:00 68.9 % 45.0-76.0 Final Lymphocyte # 2 15:19:00 1.4 K/uL 0.9-5.2 Final Mid # 2 15:19:00 0.3 K/uL 0.1-2.0 Final Gran # 2 15:19:00 3.7 K/uL 1.4-9.1 Final RBC 2 15:19:00 5.31 M/uL 3.80-5.20 H Final Hemoglobin 2 15:19:00 14.9 g/dL 11.5-16.0 Final Hematocrit 2 15:19:00 44.8 % 36.0-49.0 Final MCV 2 15:19:00 84 fL 81-100 Final MCH 2 15:19:00 28 pg 27-35 Final MCHC 2 15:19:00 33.3 g/dL 31.0-37.5 Final MPV 2 15:19:00 10.3 fL 7.0-10.4 Final Platelet Count 2 15:19:00 133 K/uL 130-400 Final Panel Description: ESR Final ESR 2 15:55:00 10 mm/hr 0-25 Final Panel Description: LIVER-63 Final AST 2 15:44:00 37 U/L 5-34 H Final ALT 2 15:44:00 30 IU/L 5-35 Final Creatinine 2 15:44:00 0.7 mg/dL 0.5-1.3 Final Total Protein 2 15:44:00 6.4 g/dL 6.0-8.2 Final ALB 2 15:44:00 4.1 g/dL 3.5-5.3 Final Globulin 2 15:44:00 2.3 g/dL Final A/G Ratio 2 15:44:00 1.8 Ratio Final Total Bilirubin 2 15:44:00 0.9 mg/dL 0.2-1.0 Final Alk Phos 2 15:44:00 77 U/L 30-103 Final LDH 2 15:44:00 195 U/L 100-210 Final Panel Description: CRP Final CRP 2 15:29:00 0.44 MG/DL 0.00-0.60 Final Advance Directives Directive Yes / No Effective Date File Name No Information Encounters Encounter Description Practice Location Reason(s) For Visit Diagnoses Date Provider Providers Copied on Encounter [facility], [address], [place], [address], [place] tel:[phone] No Information [address]. [facility] [address], [place], [address], [place]. tel:[phone] Family History Family Member Type Diagnosis Age At Onset No Information Payers Payer name Insurance type Covered green party ID Authoriza tion(s) No Information Social History Type Description Quantity Date Captured Comments Sex Female Smoking Status No Information Chief Complaint And Reason For Visit No Information Reason For Referral Reason For Referral No Information History Of Present Illness Encounter Date Complaint History Of Prese nt Illness No Information Functional Status Date Functional Assessmen t No Information Instructions Date Instruction Additional Infor mation No Information Assessments Type Assessment Date No Information Patient Care Teams Name Effective Dates (start - stop) Status Members No Information
== END 2023-04-30 15:58 | disposition home or self-care (01) ==
LOC: NFLDREF 15:58
PROVIDERS: PCP Internal Medicine; Visit Provider Internal Medicine
DX: I10 Essential (primary) hypertension (principal); E66.01 Morbid (severe) obesity due to excess calories
CPT/HCPCS: 80048

== ENCOUNTER 2023-08-03 07:51 | Outpatient (CLI) | payer BC, SELFPAY ==
--- OUTSIDE RECORDS SUMMARY | 2023-08-03 07:54 | XMS_ITS | Continuity of Care Document ---
Author Name Unknown Organization [facility] [address] [facility] [address] [place] [address] Phone Care Team Providers Care Physical Chemistry Teacher Name Role Phone Mario Alberto Otoole DO [...] [facility], [address], [place], [address], [place] tel:[phone] No Information [address]. [facility] [address], [place], [address], [place]. tel:[phone] Family History Family Member Type Diagnosis Age At Onset No Information Payers Payer name Insurance type Covered constitution party ID Authoriza tion(s) No Information Social [...]
--- NOTE | 2023-08-03 08:15 | CRLHL7_ITS ---
For Patients: As a result of the Century Cures Act, medical imaging exams and procedure reports are released immediately into your electronic medical record. You may view this report before your referring provider. If you have questions, please contact your health care provider. BILATERAL SCREENING MAMMOGRAM WITH COMPUTER-AIDED DETECTION AND TOMOSYNTHESIS TECHNIQUE: CC and MLO views were obtained. These mammographic images have been obtained using full-field digital technique. These mammographic images were interpreted with the benefit of computer-aided detection. Breast Tomosynthesis was used in this interpretation. COMPARISON FILM: 07/08/21, 07/26/18, 07/22/17. FINDINGS: The breasts are heterogeneously dense, which may obscure small masses IMPRESSION: There is no radiographic evidence for malignancy. ASSESSMENT: BI-RADS Category 2: Benign RECOMMENDATION: Routine screening mammogram in 1 year. A lay language report of this examination will be provided to the patient. Jass Serrano M.D. Diagnostic/Nuclear Medicine Radiologist [email or web address] TADEO/Dictated by: Jass Serrano MD @ 08/03/2023 9:15:00 AM (Electronically Signed)
== END 2023-08-03 07:52 | disposition home or self-care (01) ==
LOC: MAMMO 07:52
PROVIDERS: PCP Internal Medicine; Visit Provider Internal Medicine
DX: Z12.31 Encounter for screening mammogram for malignant neoplasm of breast (principal); R92.2 Inconclusive mammogram
CPT/HCPCS: 77063; 77067

== ENCOUNTER 2024-06-09 15:26 | Outpatient (CLI) | payer BC, SELFPAY ==
--- OUTSIDE RECORDS SUMMARY | 2024-06-10 08:56 | XMS_ITS | Continuity of Care Document ---
Author Organization [facility] Address [address] [facility] [address] [place] [address] Phone Care Team Providers Care Brickmason Apprentice Name Role Phone Mario Alberto Otoole DO [...] Encounter [facility], [address], [place], [address], [place] tel:[phone] No Information [address]. [facility] [address], [place], [address], [place]. tel:[phone] Family History Family Member Type Diagnosis Age At Onset No Information Payers Payer name Insurance type Covered democrat ID Authoriza tion(s) No Information Social History [...]
--- OUTSIDE RECORDS SUMMARY | 2024-06-10 08:56 | XMS_ITS | Referral Summary ---
Author Organization [facility] Address [address] [place] [address] Care Team Providers Care Director Music Name Role Phone Elsewhere, Pcp Primary Care Provider Unavailabl e Source Comments Patient records contain information from all sites at [facility]. For routine questions regarding patient records, call [phone] during business hours, M-F 8:00 AM - 5:00 PM Central Time. Record requests for emergency care only can be directed to [phone] at any time.[facility] Encounters Date Type Department Care Team Description 06/02/2024 Clinical Communication Division of Rheumatology in [place], [place] [address] [place] [address] Cintia Lucia R.N. Lab Monitoring 06/01/2024 8:04 AM CDT - 06/01/2024 11:59 PM CDT Hospital Encounter Department of Laboratory Medicine and Pathology, [place], [place] [address] [place] [address] Pedro Donnelly, ANTHONY, C.N.P. Lupus Systemic Erythematosus (HCC); Hepatitis Autoimmune (HCC); Splenomegaly Acquired; Thrombocytopenia (HCC); High Risk Medication; Medication Therapy Charcoal Unloader Not Anticoagulant Discharge Disposition: Home or Self Care 06/01/2024 8:04 AM CDT - 06/01/2024 11:59 PM CDT Hospital Encounter Department of Laboratory Medicine and Pathology, [place], [place] [address] [place] [address] Pedro Donnelly APRN, C.N.P. Lupus Systemic Erythematosus (HCC); Hepatitis Autoimmune (HCC); Splenomegaly Acquired; Thrombocytopenia (HCC); High Risk Medication Discharge Disposition: Home or Self Care 06/01/2024 2:00 PM CDT Office Visit Division of Rheumatology in [address] [address] Pedro Donnelly APRN, C.N.P. Lupus Systemic Erythematosus (HCC); Hepatitis Autoimmune (HCC); Splenomegaly Acquired; Thrombocytopenia (HCC); High Risk Medication 05/29/2024 Refill Division of Rheumatology in [address] [address] Pedro Donnelly APRN, C.N.P. Med Refill 04/09/2024 Refill Division of Rheumatology in [address] [address] Pedro Donnelly APRN, C.N.P. Med Refill 04/05/2024 Clinical Communication Division of Rheumatology in [address] [address] Vesna Guzmán R.N. Lab Monitoring 03/28/2024 10:02 AM CDT - 03/28/2024 11:59 PM CDT Hospital Encounter Department of Laboratory Medicine in [address] [address] Pedro Donnelly APRN, C.N.P. Medication Therapy Charcoal Unloader Not Anticoagulant Discharge Disposition: Home or Self Care 03/22/2024 Clinical Communication Division of Rheumatology in [address] [address] Faye Curtis R.N. Lab Monitoring (AZA- first delay) 03/17/2024 Clinical Communication Division of Rheumatology in [address] [phone] Pedro Donnelly APRN, C.N.P. Eye Exam (03-15-24) from Last 3 Months Allergies Active Allergy Reactions Criticality Noted Date Comments No Known Allergies Other (see comments) 012 Medications Medication Sig Dispensed Refills Start Date End Date Status calcium carbonate-vit D3-min 600 mg calcium- 800 unit tablet Take 1 tablet by mouth daily. 08/25/2012 Active lisinopril-hydroCH LOROthiazide (PRINZIDE,ZESTORET IC) 20-25 mg per tablet Take 1 tablet by mouth daily. Active valACYclovir (VALTREX) 500 mg tablet as directed. 04/11/2021 Active estradioL (ESTRACE) 0.1 mg/g (0.01%) vaginal cream Insert 1 g into the vagina. 08/09/2021 Active Gemtesa 75 mg tablet Take 1 tablet by mouth daily. 06/03/2022 Active omeprazole (PriLOSEC) [address] capsule TAKE 1 CAPSULE BY MOUTH 2 TIMES A DAY BEFORE BREAKFAST AND DINNER. 180 capsule 3 08/03/2023 Active azaTHIOprine (Imuran) 50 mg tabletIndications: Lupus Systemic Erythematosus (HCC) TAKE 4 TABLETS BY MOUTH DAILY. 360 tablet 04/14/2024 Active hydroxychloroquine (PlaqueniL) 200 mg tabletIndications: Lupus Systemic Erythematosus (HCC) TAKE 2 TABLETS (400 MG TOTAL) BY MOUTH DAILY. YEARLY EYE EXAMS 180 tablet 2 06/01/2024 Active predniSONE (Deltasone) 5 mg tabletIndications: Lupus Systemic Erythematosus (HCC) Take 3 tablets (15 mg total) by mouth daily for 5 days, THEN 2 tablets (10 mg total) daily for 5 days, THEN 1.5 tablets (7.5 mg total) daily for 5 days, THEN 1 tablet (5 mg total) daily for 5 days. 38 tablet 06/02/2024 06/22/20 24 Active hydroxychloroquine (PLAQUENIL) 200 mg tabletIndications: Lupus Systemic Erythematosus (HCC) Take 2 tablets (400 mg total) by mouth daily. Yearly Eye Exams 180 tablet 01/22/2024 06/01/20 24 Discontinued Hospital, Clinic, or Other Facility Administered Medication Ordered Dose Route Frequency Start Date End Date Status fluorescein 500 mg/5 mL (10 %) injection 500 mg (AK-FLUOR/FLUORESCEIN)I ndications:Hemorrhage Retinal Bilateral,Retinopathy 500 mg IV Once in imaging 12/12/2019 Active Active Problems Problem Noted Date Diagnosed Date Retinopathy 12/11/2019 Hemorrhage Retinal Bilateral 10/17/2019 Cirrhosis Nonalcoholic 08/11/2018 Thrombocytopenia 08/26/2017 Swelling Leg 08/22/2015 Dependence Nicotine 06/08/2013 High Risk Medication 09/02/2012 Hepatitis Autoimmune 07/13/2012 Lupus Systemic Erythematosus 07/12/2012 Splenomegaly Acquired 06/11/2012 Other Local Lupus Erythematosus 05/04/2012 Immunizations Name Administration Dates Next Due HepA Adult 07/23/2012 Tdap 08/08/2008 influenza trivalent vaccine (6 months and older) (PF) 07/23/2012 Social History Tobacco Use Types Packs/Day Years Used Date Smoking Tobacco: Former Cigarettes 0 09/07/1986 - 07/15/2018 Smokeless Tobacco: Never Tobacco Cessation:Counseling Given: Not Answered Alcohol Use Standard Drinks/Week Comments No 0 (1 standard drink = 0.6 oz pur e alcohol) [facility] Utilities Answer Date Recorded In the past 12 months has e I Had Cancer, gas, oil, or water company threatened to shut off services in your home? No 05/26/2024 Humiliation, Afraid, Rape, and Kick questionnair e Answer Date Recorded Within the last year, have y ou been afraid of your partner or ex-partner? No 07/06/2022 Within the last year, have y ou been humiliated or emotionally abused in other ways by your partner or ex-partner? No Within the last year, have y ou been kicked, hit, slapped, or otherwise physically hurt by your partner or ex-partner? No 07/06/2022 Within the last year, have y ou been raped or forced to have any kind of sexual activity by your partner or ex-partner? No 07/06/2022 Social Connection and Isolation Panel [NHANES] A nswer Date Recorded In a typical week, how many times do you talk on the phone with family, friends, or neighbors? Once a week 07/06/2022 How often do you get togethe r with friends or relatives? Patient declined 07/06/2022 How often do you attend gnosticist or buddhism serv ices? Patient declined 07/06/2022 Do you belong to any clubs o r organizations such as gnosticist groups, unions, fraternal or athletic groups, or school groups? No 07/06/2022 How often do you attend meet ings of the clubs or organizations you belong to? Never 07/06/2022 Are you , , di vorced, , never , or living with a partner? Never 07/06/2022 AUDIT-C Answer Date Recorded Q1: How often do you have a drink containing alc ohol? Never 07/06/2022 Average Number of Drinks Not on file 022 Frequency of Binge Drinking Not on file 06/09 Overall Financial Resource Strain (CARDIA) Answe r Date Recorded How hard is it for you to pa y for the very basics like food, housing, medical care, and heating? Somewhat hard 07/06/2022 [facility] - Occupational Stress Questionnaire Answer Date Recorded Do you feel stress - tense, restless, nervous, or anxious, or unable to sleep at night because your mind is troubled all the time - these days? To some extent 07/06/2022 Exercise Vital Sign Answer Date Recorde d On average, how many days pe r week do you engage in moderate to strenuous exercise (like a brisk walk)? 0 days 05/26/2024 On average, how many minutes do you engage in exercise at this level? 0 min 05/26/2024 Hunger Vital Sign Answer Date Recorded Within the past 12 months, y ou worried that your food would run out before you got the money to buy more. Sometimes true Within the past 12 months, t he food you bought just didn't last and you didn't have money to get more. Never true PRAPARE - Transportation Answer Date Re corded In the past 12 months, has l ack of transportation kept you from medical appointments or from getting medications? No 05/08 In the past 12 months, has l ack of transportation kept you from meetings, work, or from getting things needed for daily living? No 05/26/2024 Nutrition Answer Date Recorded On average, how many serving s of fruits and vegetables do you eat per day (serving size is equal to 1 cup or approximately the size of a tennis ball)? 3-5 05/26/2024 Dental Answer Date Recorded Dental: Regular Dentist Yes 10/27/19 Employment Answer Date Recorded Employment status Employed and actively working without restrictions 05/26/2024 Housing Stability Answer Date Recorded What is your living situation today? I have a [facility] place to live 05/26/2024 Education Answer Date Recorded What is the highest level of school you have completed or the highest degree you have received? 12th grade 06/17/2019 Sex and Gender Information Value Date Recorded Sex Assigned at Female 03/09/2018 3:30 PM CDT Gender Identity Female 03/09/2018 3:30 PM CDT Sexual Orientation Straight 03/09/2018 3: 30 PM CDT Last Filed Vital Signs Vital Sign Reading Time Taken Comments Blood Pressure 142/80 06/01/2024 1:41 PM CDT Pulse 82 06/01/2024 1:41 PM CDT Temperature 36 ??C (96.8 ??F) 06/01/2024 1:41 PM CDT Respiratory Rate 23 12/22/2018 2:52 PM CDT Oxygen Saturation 99% 02/16/2020 3:26 PM CDT Inhaled Oxygen Concentration - - Weight 117 kg (257 lb 15 oz) 06/01/2024 1:41 PM CDT Height 164.6 cm (5' 4.8) 06/01/2024 1:41 PM CDT Body Mass Index 43.18 06/01/2024 1:41 PM CDT Plan of Treatment Not on file Procedures Procedure Name Priority Date/Time Associated Diagnosis Comments PROTEIN/CREATININE RATIO, RANDOM, URINE Routine 06/01/2024 8:49 AM CDT Lupus Systemic Erythematosus (HCC) Hepatitis Autoimmune (HCC) Splenomegaly Acquired Thrombocytopenia (HCC) High Risk Medication ALANINE AMINOTRANSFERASE (ALT), S/P Routine 06/01/2024 8:42 AM CDT Medication Therapy Charcoal Unloader Not Anticoagulant COMPL, TOT, S Routine 06/01/2024 8:42 AM CDT Lupus Systemic Erythematosus (HCC) Hepatitis Autoimmune (HCC) Splenomegaly Acquired Thrombocytopenia (HCC) High Risk Medication COMPLEMENT C4, S Routine 06/01/2024 8:42 AM CDT Lupus Systemic Erythematosus (HCC) Hepatitis Autoimmune (HCC) Splenomegaly Acquired Thrombocytopenia (HCC) High Risk Medication COMPL C3, S Routine 06/01/2024 8:42 AM CDT Lupus Systemic Erythematosus (HCC) Hepatitis Autoimmune (HCC) Splenomegaly Acquired Thrombocytopenia (HCC) High Risk Medication DSDNA AB, IGG, S Routine 06/01/2024 8:42 AM CDT Lupus Systemic Erythematosus (HCC) Hepatitis Autoimmune (HCC) Splenomegaly Acquired Thrombocytopenia (HCC) High Risk Medication CREATININE WITH EGFR, S/P Routine 06/01/2024 8:42 AM CDT Lupus Systemic Erythematosus (HCC) Hepatitis Autoimmune (HCC) Splenomegaly Acquired Thrombocytopenia (HCC) High Risk Medication ASPARTATE AMINOTRANSFERASE (AST), S/P Routine 06/01/2024 8:42 AM CDT Lupus Systemic Erythematosus (HCC) Hepatitis Autoimmune (HCC) Splenomegaly Acquired Thrombocytopenia (HCC) High Risk Medication C-REACTIVE PROTEIN (CRP), S/P Routine 06/01/2024 8:42 AM CDT Lupus Systemic Erythematosus (HCC) Hepatitis Autoimmune (HCC) Splenomegaly Acquired Thrombocytopenia (HCC) High Risk Medication SEDIMENTATION RATE, B Routine 06/01/2024 8:42 AM CDT Lupus Systemic Erythematosus (HCC) Hepatitis Autoimmune (HCC) Splenomegaly Acquired Thrombocytopenia (HCC) High Risk Medication CBC WITH DIFFERENTIAL, B Routine 06/01/2024 8:42 AM CDT Lupus Systemic Erythematosus (HCC) Hepatitis Autoimmune (HCC) Splenomegaly Acquired Thrombocytopenia (HCC) High Risk Medication DIPSTICK, U Routine 06/01/2024 8:37 AM CDT OSMOLALITY, U Routine 06/01/2024 8:37 AM CDT PH, U Routine 06/01/2024 8:37 AM CDT MICROSCOPIC AUTOMATED Routine 06/01/2024 8:37 AM CDT URINALYSIS WITH MICROSCOPIC Routine 06/01/2024 8:37 AM CDT Lupus Systemic Erythematosus (HCC) Hepatitis Autoimmune (HCC) Splenomegaly Acquired Thrombocytopenia (HCC) High Risk Medication ALANINE AMINOTRANSFERASE (ALT), S/P Routine 03/28/2024 10:10 AM CDT Medication Therapy Charcoal Unloader Not Anticoagulant ASPARTATE AMINOTRANSFERASE (AST), S/P Routine 03/28/2024 10:10 AM CDT Medication Therapy Penitentiary Not Anticoagulant CBC WITH DIFFERENTIAL, B Routine 03/28/2024 10:10 AM CDT Medication Therapy Charcoal Unloader Not Anticoagulant COMPREHENSIVE METABOLIC PANEL, S/P Routine 05/25/2023 10:40 AM CDT Lupus Systemic Erythematosus (HCC) Hepatitis Autoimmune (HCC) US ABDOMEN COMPLETE Routine 04/19/2021 8 :56 AM CDT Other Cirrhosis Of Liver (HCC) LIPID PANEL, S Routine 06/21/2019 7:40 AM CDT Lupus Systemic Erythematosus (HCC) Hepatitis Autoimmune (HCC) Shortness Of Breath COLONOSCOPY Routine 12/22/2018 1:25 PM CDT Diarrhea Pain Epigastric PREVIOUS HEPATITIS PROFILE Routine 06/11/2012 12:43 PM CDT from Last 3 Months or Most Recently Relevant to Health Maintenance Results * Protein/Creatinine Ratio, Random, Urine (06/01/2024 8:49 AM CDT) Protein, Total, Random, U 7 mg/dL 06/01/2024 11:08 AM CDT DTL Creatinine, Random, U 76 16 - 326 mg/dL 06/01/2024 11:08 AM CDT DTL Protein/Creatin ine Ratio 0.09 <0.18 mg/mg 06/01/2024 11:08 AM CDT DTL Urine (Urine, Midstream) 06/01/2024 8:49 AM CDT 06/01/2024 9:25 AM CDT Pedro Donnelly APRN, C.N.P. LAB URINE OR DERABLES [facility] [address] [place] [address], [facility] DTL [facility] [address] [place] [address] * Double-Stranded DNA (dsDNA) Antibodies, IgG (06/01/2024 8:42 AM CDT) [facility] dsDNA Ab, IgG, S <10 0 - 99 IU/mL 06/01/2024 6:23 PM CDT [facility] Comment: Interpretation: Negative (<100) Negative for anti-dsDNA IgG antibodies. Results do not rule out a diagnosis of systemic lupus erythematosus (SLE). Consider testing for anti-dsDNA IgG using Crithidia luciliae by indirect immunofluorescence, if clinically indicated. Blood (Blood, Venous) 06/01/2024 8:42 AM CDT 06/01/2024 1:57 PM CDT Pedro Donnelly APRN, C.N.P. LAB BLOOD AD D-ON [facility] [address] [place] [address] [facility] [address] [place] [address] * (ABNORMAL) Sedimentation Rate (06/01/2024 8:42 AM CDT) [facility] Sedimentation Rate, B 102(H) 2 - 22 mm/h 06/01/2024 11:00 AM CDT [facility] Blood (Blood, Venous) 06/01/2024 8:42 AM CDT 06/01/2024 9:12 AM CDT Pedro Donnelly APRN, C.N.P. LAB BLOOD AD D-ON [facility] [address] [place] [address], [facility] [place] [address] [place] [address] * (ABNORMAL) CBC with Differential, Blood (06/01/2024 8:42 AM CDT) Only the most recent of2 resultswithin the time period is included. [facility] Hemoglobin 12.2 11.6 - 15.0 g/dL 06/01/2024 9:43 AM CDT DTL Hematocrit 36.5 35.5 - 44.9 % 06/01/2024 9:43 AM CDT DTL Erythrocytes 4.03 3.92 - 5.13 x10(12)/L 06/01/2024 9:43 AM CDT DTL MCV 90.6 78.2 - 97.9 fL 06/01/2024 9:43 AM CDT DTL RBC Distrib Width 14.5 12.2 - 16.1 % 06/01/2024 9:43 AM CDT DTL Platelet Count 120(L) 157 - 371 x10(9)/L 06/01/2024 10:49 AM CDT DTL Comment:Results confirmed by smear, no clumping or interference seen. Leukocytes 5.4 3.4 - 9.6 x10(9)/L 06/01/2024 10:49 AM CDT DTL Neutrophils 4.06 1.56 - 6.45 x10(9)/L 06/01/2024 9:43 AM CDT [facility] Lymphocytes 0.84(L) 0.95 - 3.07 x10(9)/L 06/01/2024 9:43 AM CDT DTL Monocytes 0.31 0.26 - 0.81 x10(9)/L 06/01/2024 9:43 AM CDT DTL Eosinophils 0.13 0.03 - 0.48 x10(9)/L 06/01/2024 9:43 AM CDT DTL Basophils 0.03 0.01 - 0.08 x10(9)/L 06/01/2024 9:43 AM CDT DTL Blood (Blood, Venous) 06/01/2024 8:42 AM CDT 06/01/2024 9:12 AM CDT Pedro Donnelly APRN C.N.P. LAB BLOOD AD D-ON [facility] [address] [place] [address], [facility] DTL [facility] [address] [place] [address] DHPM [facility] [address] [place] [address] * Complement, Total (06/01/2024 8:42 AM CDT) Complement, Total, S 40 30 - 75 U/mL 06/01/2024 2:21 PM CDT [facility] Blood (Blood, Venous) 06/01/2024 8:42 AM CDT 06/01/2024 12:19 PM CDT Apolonia Kumar APRN.N.P. LAB BLOOD NO N ADD-ON [facility] [address] [place] [address] [facility] [address] [place] [address] * Complement C3 (06/01/2024 8:42 AM CDT) Complement C3, S 93 75 - 175 mg/dL 06/01/2024 1:12 PM CDT [facility] Blood (Blood, Venous) 06/01/2024 8:42 AM CDT 06/01/2024 12:38 PM CDT Pedro Donnelly APRN, Apolonia.N.P. LAB BLOOD AD D-ON Performing Organization Address City/[facility]/ZIP Co de Phone Number [facility] [address] [place] [address] [facility] [address] [place] [address] * (ABNORMAL) Complement C4 (06/01/2024 8:42 AM CDT) Complement C4, S 6(L) 14 - 40 mg/dL 06/01/2024 2:21 PM CDT [facility] Blood (Blood, Venous) 06/01/2024 8:42 AM CDT 06/01/2024 12:38 PM CDT Apolonia Kumar APRN.N.P. LAB BLOOD AD D-ON [facility] [address] [place] [address] [facility] [address] [place] [address] * CRP (C-Reactive Protein) (06/01/2024 8:42 AM CDT) C-Reactive Protein (CRP), S 3.2 <5.0 mg/L 06/01/2024 10:37 AM CDT DTL Blood (Blood, Venous) 06/01/2024 8:42 AM CDT 06/01/2024 9:30 AM CDT Apolonia Kumar APRN.N.P. LAB BLOOD AD D-ON Performing Organization Address City/[facility]/ZIP Co de Phone Number [facility] [address] [place] [address] * ALT (Alanine Aminotransferase) (06/01/2024 8:42 AM CDT) Only the most recent of2 resultswithin the time period is included. Alanine Aminotransferase (ALT), S 14 7 - 45 U/L 06/01/2024 10:37 AM CDT DT Blood (Blood, Venous) 06/01/2024 8:42 AM CDT 06/01/2024 9:30 AM CDT Pedro Donnelly APRN, C.N.P. LAB BLOOD AD D-ON [facility] [address] [place], [place] [phone] [place] [address] [address] [place] [address] * AST (Aspartate Aminotransferase) (06/01/2024 8:42 AM CDT) Only the most recent of2 resultswithin the time period is included. Aspartate Aminotransferase (AST), S 20 8 - 43 U/L 06/01/2024 10:37 AM CDT DTL Blood (Blood, Venous) 06/01/2024 8:42 AM CDT 06/01/2024 9:30 AM CDT Apolonia Kumar APRN.N.P. LAB BLOOD AD D-ON Performing Organization Address City/[facility]/ZIP Co de Phone Number [facility] [address] [facility] [address] [place] [address] * (ABNORMAL) Creatinine with Estimated GFR (06/01/2024 8:42 AM CDT) Creatinine 1.05(H) 0.59 - 1.04 mg/dL 06/01/2024 10:37 AM CDT DTL Estimated GFR (eGFR) 61 >=60 mL/min/BSA 06/01/2024 10:37 AM CDT DTL Comment: Estimated GFR calculated using the 2020 CKD_EPI creatinine equation. Blood (Blood, Venous) 06/01/2024 8:42 AM CDT 06/01/2024 9:30 AM CDT Robert Kumar APRNN.P. LAB BLOOD AD D-ON Performing Organization Address City/[facility] Co de Phone Number [facility] [address] [place] [address], [facility] [address] [place] [address] * Dipstick, Urine (06/01/2024 8:37 AM CDT) Hemoglobin, QL, U Negative Negative 06/01/2024 10:26 AM CDT DTL Leukocyte Esterase, U Negative Negative 06/01/2024 10:26 AM CDT DTL Nitrite, U Negative Negative 06/01/2024 10:26 AM CDT DTL Ketone, U Negative Negative mg/dL 06/01/2024 10:26 AM CDT DTL Glucose, U Negative Negative mg/dL 06/01/2024 10:26 AM CDT DTL Urine 06/01/2024 8:37 AM CDT 06/01/2024 9:26 AM CDT Robert Kumar APRNN.PSarina LAB URINE OR DERABLES Performing Organization Address City/[facility]/ZIP Co de Phone Number [facility] [address] [place], [place] [phone] [place] [address] 200 [place] [address] * Microscopic Automated (06/01/2024 8:37 AM CDT) Microscopy Normal 06/01/2024 10:26 AM CDT DTL RBC None Seen <3 /hpf 06/01/2024 10:26 AM CDT DTL WBC None Seen /hpf 06/01/2024 10:26 AM CDT DTL Comment: ----REFERENCE VALUE---- <4 ??(Males) <11 (Females) Urine 06/01/2024 8:37 AM CDT 06/01/2024 9:26 AM CDT Robert Kumar APRNN.P. LAB URINE OR DERABLES Performing Organization Address City/[facility] Co de Phone Number [facility] [address] [place], [place] [phone] [place] [address] [address] [place] [address] * pH, Urine (06/01/2024 8:37 AM CDT) pH, U 5.1 4.5 - 8.0 06/01/2024 10: 25 AM CDT DT Urine 06/01/2024 8:37 AM CDT 06/01/2024 9:26 AM CDT Robert Kumar APRNN.PSarina LAB URINE OR DERABLES Performing Organization Address City/[facility]/ZIP Co de Phone Number [facility] [address] [place], [place] [phone] [place] [address] [facility] [address] [place] [address] * Osmolality, Urine (06/01/2024 8:37 AM CDT) Osmolality, U 693 150 - 1150 mOsm/kg 06/01/2024 10:25 AM CDT DTL Urine 06/01/2024 8:37 AM CDT 06/01/2024 9:26 AM CDT Pedro Donnelly APRN, C.N.P. LAB URINE OR DERABLES [facility] [address] [place], [place] [phone] [place] [address] [address] [place] [address] * Urinalysis, with Microscopic: Urine, Voided (06/01/2024 8:37 AM CDT) Source Urine, Urine, Voided 06/01/2024 9:26 AM CDT DTL Color, U Yellow 06/01/2024 9:26 AM CDT DTL Clarity, U Clear 06/01/2024 9:26 AM CDT DTL Protein, U 7 <26 mg/dL 06/01/2024 11:08 AM CDT DTL Protein/Osmola lity 0.10 <0.42 ratio 06/01/2024 11:08 AM CDT DTL Predicted 24 HR Protein, U 83 <229 mg/24 h 06/01/2024 11:08 AM CDT DTL Predicted Range 21-338 mg/24 h 06/01/2024 11:08 AM CDT DTL Urine (Urine, Voided) 06/01/2024 8:37 AM CDT 06/01/2024 9:26 AM CDT Pedro Donnelly APRN, C.N.P. LAB URINE OR DERABLES [facility] [address] [place], [place] [phone] [place] [address] [place] [address] [place] [address] * Comprehensive Metabolic Panel (05/25/2023 10:40 AM CDT) Potassium, P 4.2 3.6 - 5.2 mmol/L 05/25/2023 1:43 PM CDT OWAT Sodium, P 138 135 - 145 mmol/L 05/25/2023 1:43 PM CDT [facility] Chloride, P 103 98 - 107 mmol/L 05/25/2023 1:43 PM CDT [facility] Bicarbonate, P 23 22 - 29 mmol/L 05/25/2023 1:42 PM CDT [facility] Anion Gap, P 12 7 - 15 05/25/2023 1:43 PM CDT [facility] BUN (Blood Urea Nitrogen), P 20 6 - 21 mg/dL 05/25/2023 1:42 PM CDT [facility] Creatinine 0.89 0.59 - 1.04 mg/dL 05/25/2023 1:42 PM CDT OWAT Estimated GFR (eGFR) 75 >=60 mL/min/BS A 05/25/2023 1:42 PM CDT [facility] Comment: Estimated GFR calculated using the 2020 CKD_EPI creatinine equation. Calcium, Total, P 9.6 8.6 - 10.0 mg/dL 05/25/2023 1:42 PM CDT [facility] Glucose, P 94 70 - 140 mg/dL 05/25/2023 1:42 PM CDT [facility] Protein, Total, P 7.4 6.3 - 7.9 g/dL 05/25/2023 1:42 PM CDT [facility] Albumin, P 4.3 3.5 - 5.0 g/dL 05/25/2023 1:42 PM CDT [facility] Aspartate Aminotransferase (AST), P 18 8 - 43 U/L 05/25/2023 1:42 PM CDT OW[facility] Alkaline Phosphatase, P 72 35 - 104 U/L 05/25/2023 1:42 PM CDT [facility] Alanine Aminotransferase (ALT), P 13 7 - 45 U/L 05/25/2023 1:42 PM CDT OW[facility] Bilirubin, Total, P 0.4 <=1.2 mg/dL 05/25/2023 1:42 PM CDT [facility] Blood (Blood, Venous) 05/25/2023 10:40 AM CDT 05/25/2023 1:14 PM CDT Collin Trivedi M.D. LAB BLOOD ADD-ON [facility] [address] [place] [address], [facility] OWAT [facility] [place] [address] [place] [address] * US Abdomen Complete (04/19/2021 8:56 AM CDT) Anatomical Region Laterality Modality Abdomen, Ultrasound RST LOS, Ultrasound ARZ LOS, Ultrasound FLA LOS N/A Ultrasound 04/19/2021 8:57 AM CDT Impressions 04/19/2021 9:06 [...] Ultrasound 10/19/2020 FINDINGS: Liver: Slightly coarse parenchymal echotexture consistent with chronic parenchymal disease. Again seen is an echogenic lesion in the right lobe of the liver measuring 3.5 cm x 2.6 cm x 3.5 cm, previously 3.6 cm, compatible with a hemangioma as characterized on CT 08/22/2015 and 02/27/2021. ??Antegrade flow in the main portal vein. Gallbladder: Surgically absent. Intrahepatic ducts: Not dilated. Common duct: Not dilated. Pancreas: Normal where seen. Right kidney: ?? Length: 10.6 cm. Normal echogenicity. Parenchyma thinning. No hydronephrosis. Left kidney: ?? Length: 11.1 cm. Normal echogenicity. Parenchymal thinning. No hydronephrosis. Spleen: Splenomegaly. Small accessory splenule. Spleen length: 15.9 cm Aorta: Normal caliber. IVC: Normal where seen. Ascites: ??None. Ultrasound LI-RADS score is as follows: Ultrasound Category: US-1: ??Negative (No US evidence of HCC). ??Recommend continued routine surveillance. Visualization Score: A: ??Normal or minimal limitations (limitations, if any, are unlikely to meaningfully affect sensitivity). Ultrasound LI-RADS is a standardized system for imaging technique, interpretation, reporting, and data collection for screening or surveillance ultrasound exams in patients at risk for developing HCC. Ultrasound LI-RADS is supported and endorsed by the [employer]. More information can be found on the following link: https://www.acr.org/Clinical-Resources/Ajqlwtnjg-piu-Vshq-Systems/LI-RADS/Ultras dzl-KS-TAKC-v2017 Procedure Note Tanesha Baltazar M.D. - 04/19/2021 EXAM: US ABDOMEN COMPLETE COMPARISON: Ultrasound 10/19/2020 FINDINGS: Liver: Slightly coarse parenchymal echotexture consistent with chronic parenchymal disease. Again seen is an echogenic lesion in the right lobeof the liver measuring 3.5 cm x 2.6 cm x 3.5 cm, previously 3.6 cm, compatiblewith a hemangioma as characterized on CT 08/22/2015 and 02/27/2021. Antegradeflow in the main portal vein. Gallbladder: Surgically absent. Intrahepatic ducts: Not dilated. Common duct: Not dilated. Pancreas: Normal where seen. Right kidney: Length: 10.6 cm. Normal echogenicity. Parenchyma thinning. Nohydronephrosis. Left kidney: Length: 11.1 cm. Normal echogenicity. Parenchymal thinning. Nohydronephrosis. Spleen: Splenomegaly. Small accessory splenule. Spleen length: 15.9 cm Aorta: Normal caliber. IVC: Normal where seen. Ascites: None. Ultrasound LI-RADS score is as follows: Ultrasound Category: US-1: Negative (No US evidence of HCC). Recommend continued routine surveillance. Visualization Score: A: Normal or minimal limitations (limitations, ifany, are unlikely to meaningfully affect sensitivity). Ultrasound LI-RADS is a standardized system for imaging technique, interpretation, reporting, and data collection for screening orsurveillance ultrasound exams in patients at risk for developing HCC. UltrasoundLI-RADS is supported and endorsed by the [employer]. Moreinformation can be found on the following link: https://www.acr.org/Clinical-Resources/Pavmltdlq-qev-Zeyt-Systems/LI-RADS/Ultras uyu-VC-XLXN-v2017 IMPRESSION: 1. Slightly coarse hepatic parenchymal echotexture consistent withchronic parenchymal disease. Stable hemangioma in the right lobe of the liver.Antegrade flow in the main portal vein. Ultrasound LI RADS 1A. 2. Splenomegaly. 3. Parenchymal thinning of both kidneys. James Joseph M.D. IMG US PROCEDURES * (ABNORMAL) Lipid Panel (06/21/2019 7:40 AM CDT) Cholesterol, Total 126 mg/dL 2018 8:59 AM CDT DTL Comment: ----REFERENCE VALUE---- Desirable: < 200 Borderline high: 200 - 239 High: > or = 240 Triglycerides 239(H) mg/dL 06/21/2019 8:59 AM CDT DTL Comment: ----REFERENCE VALUE---- Normal: <150 Borderline high: 150-199 High: 200-499 Very high: > or =500 Cholesterol, HDL, S 36(L) >=50 mg/dL 06/21/2019 8:59 AM CDT DTL Calculated LDL 42 mg/dL 06/21/2019 8:59 AM CDT DTL Comment: ----REFERENCE VALUE---- Desirable: <100 Above Desirable: 100-129 Borderline high: 130-159 High: 160-189 Very high: > or =190 Cholesterol, Non-HDL, Calculated 90 mg/dL 06/21/2019 8:59 AM CDT DTL Comment: ----REFERENCE VALUE---- Desirable: <130 Above Desirable: 130-159 Borderline high: 160-189 High: 190-219 Very high: > or =220 Blood (Blood, Venous) 06/21/2019 7:40 AM CDT 06/21/2019 8:01 AM CDT Robert Kumar APRNNGenny LAB BLOOD AD D-ON [facility] [address] [place] [address], [place] DTL [facility] [address] [place] [address] * Previous Hepatitis Profile (06/11/2012 12:43 PM CDT) HBs Antibody,S Positive Unvaccinated : Negative; Vaccinated: Positive; [facility] Comment:Patient is considere d to be immune to infection with HBV. HBs Antibody, Quantitative, S 849 Unvaccinated : <5.0; Vaccinated: >=12.0; MIU/ML [facility] HCV Ab, S Negative Negative [facility] Comment:Dlddwf-op-mtnnkn rat io is <1.00. HBc Total Ab, S Negative Negative [facility] HBs Antigen, S Negative Negative [facility] Hepatitis A Total Ab, S Negative Negative [facility] 06/11/2012 12:4 3 PM CDT 06/11/2012 12:43 PM CDT Landon Bal M.D. LAB MICROBIOLOGY - B LOOD ORDERABLES [facility] [address] [place] [id number] [[email or web address]] from Last 3 Months or Most Recently Relevant to Health Maintenance Care Teams Director Music Relationship Specialty Start Date End Date Elsewhere, Pcp PCP - General Family Medicine 03/25/21
--- OUTSIDE RECORDS SUMMARY | 2024-06-10 08:56 | XMS_ITS | Clinical Summary ---
Author Organization [facility] Address [address] [place] [address] Care Team Providers Care Water Pump Operator Name Role Phone Elsewhere, Pcp Primary Care Provider Unavailabl e Source Comments Patient records contain information from all sites at [facility]. For routine questions regarding patient records, call [phone] during business hours, M-F 8:00 AM - 5:00 PM Central Time. Record requests for emergency care only can be directed to [phone] at any time.[facility] Allergies Active Allergy Reactions Criticality Noted Date [...] Local Lupus Erythematosus 05/04/2012 Encounters Date Type Department Care Team Description 06/02/2024 Clinical Communication Division of Rheumatology in [place], [place] [address] [place] [address] Cintia Lucia R.Christophe. Lab Monitoring 06/01/2024 2:00 PM CDT Office Visit Division of Rheumatology in [place], [place] [address] [place] [address] Pedro Donnelly, ANTHONY, C.N.P. Lupus Systemic Erythematosus (HCC); Hepatitis Autoimmune (HCC); Splenomegaly Acquired; Thrombocytopenia (HCC); High Risk Medication 06/01/2024 8:04 AM CDT - 06/01/2024 11:59 PM CDT Hospital Encounter Department of Laboratory Medicine and Pathology, [facility], in [place], [place] [address] [place] [phone] Pedro Donnelly APRN, C.N.P. Lupus Systemic Erythematosus (HCC); Hepatitis Autoimmune (HCC); Splenomegaly Acquired; Thrombocytopenia (HCC); High Risk Medication Discharge Disposition: Home or Self Care 06/01/2024 8:04 AM CDT - 06/01/2024 11:59 PM CDT Hospital Encounter Department of Laboratory Medicine and Pathology, [facility] in [place], [place] [address] [place] [phone] Pedro Donnelly APRN, C.N.P. Lupus Systemic Erythematosus (HCC); Hepatitis Autoimmune (HCC); Splenomegaly Acquired; Thrombocytopenia (HCC); High Risk Medication; Medication Therapy Tongue Lining Stitcher Not Anticoagulant Discharge Disposition: Home or Self Care 05/29/2024 Refill Division of Rheumatology in [place], [place] [address] [place] [phone] Pedro Donnelly APRN, C.N.P. Med Refill 04/09/2024 Refill Division of Rheumatology in [place], [place] [address] [place] [phone] Pedro Donnelly APRN, C.N.P. Med Refill 04/05/2024 Clinical Communication Division of Rheumatology in [address] [phone] Vesna Guzmán R.N. Lab Monitoring 03/28/2024 10:02 AM CDT - 03/28/2024 11:59 PM CDT Hospital Encounter Department of Laboratory Medicine in [address] [phone] Pedro Donnelly APRN, C.N.P. Medication Therapy Tongue Lining Stitcher Not Anticoagulant Discharge Disposition: Home or Self Care 03/22/2024 Clinical Communication Division of Rheumatology in [address] [phone] Faye Curtis RAbigail Lab Monitoring (AZA- first delay) 03/17/2024 Clinical Communication Division of Rheumatology in [address] [phone] Pedro Donnelly, ANTHONY, C.N.P. Eye Exam (03-15-24) from Last 3 Months Immunizations Name Administration Dates Next Due HepA Adult 07/23/2012 Tdap 08/08/2008 influenza trivalent vaccine (6 months and older) (PF) 07/23/2012 Family History Medical History Relation Name Comments Coronary artery disease Father Dex [place] Hypertension Father Dex [place] Hyperlipidemia Mother Kindra [place] Hypertension Mother Kindra [place] Leukemia Paternal Grandmother Sherly Danielson Relation Name Status Comments Father Dex [place] Mother Kindra [place] Paternal Grandmother Sherly Danielson Social History Tobacco Use Types Packs/Day Years Used Date Smoking Tobacco: Former Cigarettes 0 09/07/1986 - 07/15/2018 Smokeless Tobacco: Never Tobacco Cessation:Counseling Given: Not Answered Alcohol Use Standard Drinks/Week Comments No 0 (1 standard drink = 0.6 oz pur e alcohol) [facility] Utilities Answer Date Recorded In the past 12 months has e [employer], gas, oil, or water [employer] threatened to shut off services in your [...] declined 07/06/2022 How often do you attend episcopalian or cheondoism serv ices? Patient declined 07/06/2022 Do you belong to any clubs o r organizations such as episcopalian groups, unions, fraternal or athletic groups, [...] medical care, and heating? Somewhat hard 07/06/2022 [facility] [place] of Occupat ional Health - Occupational Stress [...] your living situation today? I have a [facility] place to live 05/26/2024 Education Answer Date [...] 06/01/2024 1:41 PM CDT Plan of Treatment Health Maintenance Due Date Last Done Comments CT Colonography 1964 Cologuard 1964 FIT 1964 Pneumococcal vaccine (0-64 years) (1 of 2 - PCV) 1970 Hepatitis B Vaccines (1 of 3 - 19+ 3-dose series) 1983 Zoster Vaccines (1 of 2) 1983 Mammogram 01/05/2014 01/05/2013 (Perf ormed elsewhere) Abdominal Ultrasound 10/20/2021 04/19/2021, 02/27/2021, 10/19/2020, Additional history exists Depression Screening (Annual PHQ-2) 09/07/2023 COVID-19 Vaccine (4 - 2023-2 5 season) 2024 07/26/2021, 12/20/2020, 11/23/2020 Potassium Level 05/25/2024 05/25/2023, 09/0 09/2021, 04/19/2021, Additional history exists Sodium Level 05/25/2024 05/25/2023, 09/0 09/2021, 04/19/2021, Additional history exists Hydroxychloroquine (PLAQUENI L) Annual Exam 06/04/2024 12/03/2022 (Performed elsewhere) Influenza Vaccine (#1) 2024 , 06/17/2022, 06/18/2021, Additional history exists Lipid (Cholesterol) Screening 06/21/2024, 09/01/2011 (Performed elsewhere) Creatinine Level (Kidney Function Test) 06/01/2025 06/01/2024, 05/25/2023, 03/25/2023, Additional history exists Fasting Glucose for Diabetes Screening 05/25/2026 05/25/2023, 05/08/2022, 04/19/2021, Additional history exists DTaP,Tdap,and Td Vaccines (3 - Td or Tdap) 09/16/2028 09/16/2018, 08/08/2008 Colonoscopy 12/22/2028 12/22/2018, 12/06, 12/06/2013 (Performed elsewhere) Colorectal Cancer Screening 12/22/2028 Hepatitis C Screening Completed 06/11/2012 Hepatitis A Vaccines Completed 12/19/2013, 07/23/20 12 HPV Vaccines Aged Out No longer eligi ble based on patient's age to complete this topic Procedures Procedure Name Priority Date/Time Associated Diagnosis Comments PROTEIN/CREATININE RATIO, RANDOM, URINE Routine 06/01/2024 8:49 AM CDT Lupus Systemic Erythematosus (HCC) Hepatitis Autoimmune (HCC) Splenomegaly Acquired Thrombocytopenia (HCC) High Risk Medication ALANINE AMINOTRANSFERASE (ALT), S/P Routine 06/01/2024 8:42 AM CDT Medication Therapy Tongue Lining Stitcher Not Anticoagulant COMPL, TOT, S Routine 06/01/2024 [...] Routine 03/28/2024 10:10 AM CDT Medication Therapy Tongue Lining Stitcher Not Anticoagulant ASPARTATE AMINOTRANSFERASE (AST), S/P Routine 03/28/2024 10:10 AM CDT Medication Therapy Detention Not Anticoagulant CBC WITH DIFFERENTIAL, B Routine 03/28/2024 10:10 AM CDT Medication Therapy Tongue Lining Stitcher Not Anticoagulant COMPREHENSIVE METABOLIC PANEL, S/P Routine [...] Donnelly APRN, C.N.P. LAB URINE OR DERABLES [facility] [address] [place] [address], [facility] DTL [facility] [address] [place] [address] * Double-Stranded DNA (dsDNA) Antibodies, IgG (06/01/2024 8:42 AM CDT) Pathologist [facility] dsDNA Ab, IgG, S <10 0 - 99 IU/mL 06/01/2024 6:23 PM CDT [facility] Comment: Interpretation: Negative (<100) Negative for anti-dsDNA IgG antibodies. Results do not rule out a diagnosis of systemic lupus erythematosus (SLE). Consider testing for anti-dsDNA IgG using Crithidia luciliae by indirect immunofluorescence, if clinically indicated. Blood (Blood, Venous) 06/01/2024 8:42 AM CDT 06/01/2024 1:57 PM CDT Robert Kumar APRNNGenny LAB BLOOD AD D-ON Performing Organization Address [facility]/ZIP Co de Phone Number [facility] [address] [place] [address] [facility] [address] [place] [address] * (ABNORMAL) Sedimentation Rate (06/01/2024 8:42 AM CDT) Pathologist [facility] Sedimentation Rate, B 102(H) 2 - 22 mm/h 06/01/2024 11:00 AM CDT DT Blood (Blood, Venous) 06/01/2024 8:42 AM CDT 06/01/2024 9:12 AM CDT Robert Kumar APRNNSarinaPSarina LAB BLOOD AD D-ON Performing Organization Address City/[facility]/ZIP Co de Phone Number [facility] [address] [place] [address], [facility] DTL [facility] [address] [place] [address] * (ABNORMAL) CBC with Differential, Blood (06/01/2024 8:42 AM CDT) Only the most recent of2 resultswithin the time period is included. Pathologist [facility] Hemoglobin 12.2 11.6 - 15.0 g/dL 06/01/2024 [...] 8:42 AM CDT 06/01/2024 9:12 AM CDT Robert Kumar APRNNGenny LAB BLOOD AD D-ON [facility] [address] [place] [address], [facility] DTL [facility] [address] [place] [address] [facility] [address] [place] [address] * Complement, Total (06/01/2024 8:42 AM CDT) Complement, Total, S 40 30 - 75 U/mL 06/01/2024 2:21 PM CDT [facility] Blood (Blood, Venous) 06/01/2024 8:42 AM CDT 06/01/2024 12:19 PM CDT Robert Kumar APRNNeGnny LAB BLOOD NO N ADD-ON [facility] [address] [place] [address] [facility] [address] [place] [address] * Complement C3 (06/01/2024 8:42 AM CDT) Complement C3, S 93 75 - 175 mg/dL 06/01/2024 1:12 PM CDT [facility] Blood (Blood, Venous) 06/01/2024 8:42 AM CDT 06/01/2024 12:38 PM CDT Robert Kumar APRNN.PSarina LAB BLOOD AD D-ON Performing Organization Address City/[facility]/ZIP Co de Phone Number [facility] [address] [place] [address] [facility] [address] [place] [address] * (ABNORMAL) Complement C4 (06/01/2024 8:42 AM CDT) Complement C4, S 6(L) 14 - 40 mg/dL 06/01/2024 2:21 PM CDT [facility] Blood (Blood, Venous) 06/01/2024 8:42 AM CDT 06/01/2024 12:38 PM CDT Apolonia Kumar APRN.N.P. LAB BLOOD AD D-ON [facility] [address] [place] [address] [facility] [address] [place] [address] * CRP (C-Reactive Protein) (06/01/2024 8:42 AM CDT) C-Reactive Protein (CRP), S 3.2 <5.0 mg/L 06/01/2024 10:37 AM CDT DT Blood (Blood, Venous) 06/01/2024 8:42 AM CDT 06/01/2024 9:30 AM CDT Apolonia Kumar APRN.N.P. LAB BLOOD AD D-ON Performing Organization Address [facility] Co de Phone Number [facility] [address] [place] [address], [facility] [address] [place] [address] * ALT (Alanine Aminotransferase) (06/01/2024 8:42 AM CDT) Only the most recent of2 resultswithin the time period is included. Alanine Aminotransferase (ALT), S 14 7 - 45 U/L 06/01/2024 10:37 AM CDT DT Blood (Blood, Venous) 06/01/2024 8:42 AM CDT 06/01/2024 9:30 AM CDT Apolonia Kumar APRN.N.P. LAB BLOOD AD D-ON Performing Organization Address City/[facility]/ZIP Co de Phone Number [facility] [address] [place] [address] * AST (Aspartate Aminotransferase) (06/01/2024 8:42 AM CDT) Only the most recent of2 resultswithin the time period is included. Aspartate Aminotransferase (AST), S 20 8 - 43 U/L 06/01/2024 10:37 AM CDT DTL Blood (Blood, Venous) 06/01/2024 8:42 AM CDT 06/01/2024 9:30 AM CDT Apolonia Kumar APRN.N.P. LAB BLOOD AD D-ON [facility] [address] [place] [address] * (ABNORMAL) Creatinine with Estimated GFR (06/01/2024 8:42 AM CDT) Creatinine 1.05(H) 0.59 - 1.04 mg/dL 06/01/2024 10:37 AM CDT DT Estimated GFR (eGFR) 61 >=60 mL/min/BSA 06/01/2024 10:37 AM CDT DT Comment: Estimated GFR calculated using the 2020 CKD_EPI creatinine equation. Blood (Blood, Venous) 06/01/2024 8:42 AM CDT 06/01/2024 9:30 AM CDT Pedro Donnelly APRN, C.N.P. [place] [address] * Dipstick, Urine (06/01/2024 8:37 AM CDT) [...] Donnelly APRN, C.N.P. LAB URINE OR DERABLES Performing Organization Address City/[facility] Co de Phone Number [facility] [address] [place] [address] * Microscopic Automated (06/01/2024 8:37 AM CDT) Microscopy Normal 06/01/2024 10:26 AM CDT DTL RBC None Seen <3 /hpf 06/01/2024 10:26 AM CDT DTL WBC None Seen /hpf 06/01/2024 10:26 AM CDT DTL Comment: ----REFERENCE VALUE---- <4 ??(Males) <11 (Females) Urine 06/01/2024 8:37 AM CDT 06/01/2024 9:26 AM CDT Pedro Donnelly APRN, C.N.P. LAB URINE OR DERABLES Performing Organization Address City/[facility]/ZIP [place] [address] * pH, Urine (06/01/2024 8:37 AM CDT) pH, U 5.1 4.5 - 8.0 06/01/2024 10: 25 AM CDT DTL Urine 06/01/2024 8:37 AM CDT 06/01/2024 9:26 AM CDT Apolonia Kumar APRN.N.P. LAB URINE OR DERABLES Performing Organization Address [facility] Co de Phone Number [facility] [address] [place] [address], [place] [address] * Osmolality, Urine (06/01/2024 8:37 AM CDT) Osmolality, U 693 150 - 1150 mOsm/kg 06/01/2024 10:25 AM CDT DTL Urine 06/01/2024 8:37 AM CDT 06/01/2024 9:26 AM CDT Robert Kumar APRNN.P. LAB URINE OR DERABLES Performing Organization Address [facility] Co de Phone Number [facility] [address] [place] [address], [place] [address] * Urinalysis, with Microscopic: Urine, Voided (06/01/2024 [...] Donnelly APRN, C.N.P. LAB URINE OR DERABLES [facility] [address] [place] [address], [facility] [address] [place] [address] * Comprehensive Metabolic Panel (05/25/2023 10:40 AM [...] CDT Collin Trivedi M.D. LAB BLOOD ADD-ON [facility] [address] [place] [address], [place] OWAT [facility] [place] [address] [place] [address] * US Abdomen Complete (04/19/2021 8:56 AM [...] LI-RADS is supported and endorsed by the [employer]. More information can be found on the following link: https://www.acr.org/Clinical-Resources/Grwoepatq-osy-Fqki-Systems/LI-RADS/Ultras xpr-ZH-TTWY-v2017 Procedure Note Tanesha Baltazar M.D. - 04/19/2021 [...] UltrasoundLI-RADS is supported and endorsed by the [employer]. Moreinformation can be found on the following link: https://www.acr.org/Clinical-Resources/Sphctgrzu-uzk-Rmtg-Systems/LI-RADS/Ultras grt-ST-RMDS-v2017 IMPRESSION: 1. Slightly coarse hepatic parenchymal echotexture [...] 7:40 AM CDT 06/21/2019 8:01 AM CDT Pedro Donnelly APRN, C.N.P. LAB BLOOD AD D-ON [facility] [address] [place] [id number], [facility] DTL [facility] [address] [place] [address] * Previous Hepatitis Profile (06/11/2012 12:43 PM CDT) HBs Antibody,S Positive Unvaccinated : Negative; Vaccinated: Positive; [facility] Comment:Patient is considere d to be immune to infection with HBV. HBs Antibody, Quantitative, S 849 Unvaccinated : <5.0; Vaccinated: >=12.0; MIU/ML [facility] HCV Ab, S Negative Negative [facility] Comment:Xlnhcx-tz-gzjucp rat io is <1.00. HBc Total Ab, S Negative Negative [facility] HBs Antigen, S Negative Negative [facility] Hepatitis A Total Ab, S Negative Negative [facility] 06/11/2012 12:4 3 PM CDT 06/11/2012 12:43 PM CDT Landon Bal M.D. LAB MICROBIOLOGY - B LOOD ORDERABLES Performing Organization Address City/[facility] Co de Phone Number [facility] [address] from Last 3 Months or Most Recently Relevant to Health Maintenance Care Teams Water Pump Operator Relationship Specialty Start Date End Date Elsewhere, Pcp PCP - General Family Medicine 03/25/21
--- OUTSIDE RECORDS SUMMARY | 2024-06-10 08:56 | XMS_ITS ---
Author Organization [facility] Address [address] [place] [address] Care Team Providers Care Public Health Epidemiologist Name Role Phone Unavailable Unavailable Unavailable Surgery Details Not on file Complications Check Surgery Details section. Procedure Estimated Blood Loss Check Surgery Details section. Procedure Findings Check Surgery Details section. Procedure Specimens Taken Check Surgery Details section.
--- OUTSIDE RECORDS SUMMARY | 2024-06-10 08:56 | XMS_ITS | Encounter Summary ---
Author Organization [facility] Address [address] [place] [address] Care Team Providers Care Hose Inspector Name Role Phone Elsewhere, Pcp Primary Care Provider Unavailabl e Reason for Visit * Reason Onset Date Comments Lab Monitoring 06/02/2024 Encounter Details Date Type Department Care Team (Latest Contact Info) Description 06/02/2024 Clinical Communication Division of Rheumatology in [place], [place] [address] [place] [address] Cintia Lucia, RSarinaNSarina Lab Monitoring Social History Tobacco Use Types Packs/Day Years Used Date Smoking Tobacco: Former Cigarettes 0 09/07/1986 - 07/15/2018 Smokeless Tobacco: Never Alcohol Use Standard Drinks/Week Comments No 0 (1 standard drink = 0.6 oz pur e alcohol) [facility] Utilities Answer Date Recorded In the past 12 months has [facility] [employer], gas, oil, or water [employer] threatened to shut off services in your [...] declined 07/06/2022 How often do you attend buddhism or samaritan serv ices? Patient declined 07/06/2022 Do you belong to any clubs o r organizations such as buddhism groups, unions, fraternal or athletic groups, or [...] medical care, and heating? Somewhat hard 07/06/2022 [facility] [place] of Occupat ional Health - Occupational Stress [...] Date Recorded Dental: Regular Dentist Yes 10/27/19 21 Employment Answer Date Recorded Employment status Employed and actively working without restrictions 05/26/2024 Housing Stability Answer Date Recorded What is your living situation today? I have a [facility] place to live 05/26/2024 Education Answer Date Recorded What is the highest level of school you have completed or the highest degree you have received? 12th grade 06/17/2019 Sex and Gender Information Value Date Recorded Sex Assigned at Female 03/09/2018 3:30 PM CDT Gender Identity Female 03/09/2018 3:30 PM CDT Sexual Orientation Straight 03/09/2018 3: 30 PM CDT documented as of this encounter Miscellaneous Notes * Telephone Encounter - Cintia Lucia R.N. - 06/02/2024 1:16 PM CDT Documentation note only, patient not contacted ASSESSMENT Rheumatology monitoring labs completed on 06/01/2024 for azathioprine (Imuran) monitoring were reviewed per provider order. Labs reviewed: absolute neutrophil count, ALT, AST, hemoglobin, leukocytes, platelets Labs viewable in Labs Tab of Chart Review. PLAN Patient to continue with current plan of care. Patient next due for monitoring labs two months after last monitoring labs; these future lab orders were placed. documented in this encounter Plan of Treatment Scheduled Orders Name Type Priority Associated Diagnoses Orde r Schedule CBC with Differential, Blood Lab Routine Medication Therapy Senior Care Not Anticoagulant Expected: 07/27/2024, Expires: 11/30/2024 AST (Aspartate Aminotransferase) Lab Routine Medication Therapy Senior Care Not Anticoagulant Expected: 07/27/2024, Expires: 11/30/2024 ALT (Alanine Aminotransferase) Lab Routine Medication Therapy Global Climate Change Researcher Not Anticoagulant Expected: 07/27/2024, Expires: 11/30/2024 documented as of this encounter Visit Diagnoses Diagnosis Medication Therapy Senior Care Not Anticoagulant- Primary documented in this encounter Care Teams Hose Inspector Relationship Specialty Start Date End Date Elsewhere, Pcp PCP - General Family Medicine 03/25/21 documented as of this encounter
--- OUTSIDE RECORDS SUMMARY | 2024-06-10 08:56 | XMS_ITS | Encounter Summary ---
Author Organization [facility] Address [address] [place] [id number] Care Team Providers Care Molding And Trim Installer Name Role Phone Elsewhere, Pcp Primary Care Provider Unavailabl e Encounter Details Date Type Department Care Team (Latest Contact Info) Description 06/01/2024 8:04 AM CDT - 06/01/2024 11:59 PM CDT Hospital Encounter Department of Laboratory Medicine and Pathology, [facility] in [place], [place] [address] [place] [address] Pedro Donnelly, TREND INVESTIGATOR, C.N.P. [address] [place] [phone] Lupus Systemic Erythematosus (HCC); Hepatitis Autoimmune (HCC); Splenomegaly Acquired; Thrombocytopenia (HCC); High Risk Medication; Medication Therapy Cotton Picker Not Anticoagulant Discharge Disposition: Home or Self Care Social History Tobacco Use Types Packs/Day Years Used Date Smoking Tobacco: Former Cigarettes 0 09/07/1986 - 07/15/2018 Smokeless Tobacco: Never Alcohol Use Standard Drinks/Week Comments No 0 (1 standard drink = 0.6 oz pur e alcohol) [facility] Utilities Answer Date Recorded In the past 12 months has e electric, gas, oil, or water company threatened to [...] declined 07/06/2022 How often do you attend sikhism or restorationism serv ices? Patient declined 07/06/2022 Do you belong to any clubs o r organizations such as sikhism groups, unions, fraternal or athletic groups, [...] medical care, and heating? Somewhat hard 07/06/2022 [facility] [place] of Occupat ional Health - Occupational Stress [...] your living situation today? I have a [facility] place to live 05/26/2024 Education Answer [...] Dispensed Refills Start Date End Date azaTHIOprine (Imuran) 50 mg tabletIndications:Lupus Systemic Erythematosus (HCC) TAKE 4 TABLETS BY MOUTH DAILY. 360 tablet 04/14/2024 calcium carbonate-vit D3-min 600 mg calcium- 800 unit tablet Take 1 tablet by mouth daily. 08/25/2012 estradioL (ESTRACE) 0.1 mg/g (0.01%) vaginal cream Insert 1 g into the vagina. 08/09/2021 Gemtesa 75 mg tablet Take 1 tablet by mouth daily. 06/03/2022 hydroxychloroquine (PlaqueniL) 200 mg tabletIndications:Lupus Systemic Erythematosus (HCC) TAKE 2 TABLETS (400 MG TOTAL) BY MOUTH DAILY. YEARLY EYE EXAMS 180 tablet 2 06/01/2024 lisinopril-hydroCHLOROth iazide (PRINZIDE,ZESTORETIC) 20-25 mg per tablet Take 1 tablet by mouth daily. omeprazole (PriLOSEC) [address] capsule TAKE 1 CAPSULE BY MOUTH 2 TIMES A DAY BEFORE BREAKFAST AND DINNER. 180 capsule 3 08/03/2023 valACYclovir (VALTREX) 500 mg tablet as directed. 04/11/2021 documented as of this encounter Plan of Treatment Not on file documented as of this encounter Procedures Procedure Name Priority Date/Time Associated Diagnosis Comments DSDNA AB, IGG, S Routine 06/01/2024 8:42 [...] Splenomegaly Acquired Thrombocytopenia (HCC) High Risk Medication COMPL, TOT, S Routine 06/01/2024 8:42 AM [...] Routine 06/01/2024 8:42 AM CDT Medication Therapy Cotton Picker Not Anticoagulant ASPARTATE AMINOTRANSFERASE (AST), S/P Routine 06/01/2024 8:42 AM CDT Lupus Systemic Erythematosus (HCC) Hepatitis Autoimmune (HCC) Splenomegaly Acquired Thrombocytopenia (HCC) High Risk Medication CREATININE WITH EGFR, S/P Routine 06/01/2024 8:42 AM CDT Lupus Systemic Erythematosus (HCC) Hepatitis Autoimmune (HCC) Splenomegaly Acquired Thrombocytopenia (HCC) High Risk Medication documented in this encounter Results * ALT (Alanine Aminotransferase) (06/01/2024 8:42 AM CDT) Alanine Aminotransferase (ALT), S 14 7 - 45 U/L 06/01/2024 10:37 AM CDT DT Blood (Blood, Venous) 06/01/2024 8:42 AM CDT 06/01/2024 9:30 AM CDT Pedro Donnelly APRN, C.N.P. LAB BLOOD AD D-ON Performing Organization Address City/[facility]/ZIP Co de Phone Number [facility] [address] [place] [address], [facility] [address] [place] [address] * Complement, Total (06/01/2024 8:42 AM CDT) Complement, Total, S 40 30 - 75 U/mL 06/01/2024 2:21 PM CDT [facility] Blood (Blood, Venous) 06/01/2024 8:42 AM CDT 06/01/2024 12:19 PM CDT Apolonia Kumar APRN.N.P. LAB BLOOD NO N ADD-ON [facility] [address] [place] [address] [facility] [address] [place] [address] * (ABNORMAL) Complement C4 (06/01/2024 8:42 AM CDT) Complement C4, S 6(L) 14 - 40 mg/dL 06/01/2024 2:21 PM CDT [facility] Blood (Blood, Venous) 06/01/2024 8:42 AM CDT 06/01/2024 12:38 PM CDT Apolonia Kumar APRN.N.P. LAB BLOOD AD D-ON Performing Organization Address City/[facility] Co de Phone Number [facility] [address] [place] [address] [facility] [address] [place] [address] * Complement C3 (06/01/2024 8:42 AM CDT) [facility] Complement C3, S 93 75 - 175 mg/dL 06/01/2024 1:12 PM CDT [facility] Blood (Blood, Venous) 06/01/2024 8:42 AM CDT 06/01/2024 12:38 PM CDT Pedro Donnelly APRN, Apolonia.N.P. LAB BLOOD AD D-ON Performing Organization Address City/[facility] Co de Phone Number [facility] [address] [place] [address] [facility] [address] [place] [address] * Double-Stranded DNA (dsDNA) Antibodies, IgG (06/01/2024 8:42 AM CDT) Pathologist [facility] dsDNA Ab, IgG, S <10 0 - 99 IU/mL 06/01/2024 6:23 PM CDT [facility] Comment: Interpretation: Negative (<100) Negative for anti-dsDNA IgG antibodies. Results do not rule out a diagnosis of systemic lupus erythematosus (SLE). Consider testing for anti-dsDNA IgG using Crithidia luciliae by indirect immunofluorescence, if clinically indicated. Blood (Blood, Venous) 06/01/2024 8:42 AM CDT 06/01/2024 1:57 PM CDT Robert Kumar APRNNGenny LAB BLOOD AD D-ON [facility] [address] [place] [address] [facility] [address] [place] [address] * (ABNORMAL) Creatinine with Estimated GFR (06/01/2024 8:42 AM CDT) Creatinine 1.05(H) 0.59 - 1.04 mg/dL 06/01/2024 10:37 AM CDT DTL Estimated GFR (eGFR) 61 >=60 mL/min/BSA 06/01/2024 10:37 AM CDT DTL Comment: Estimated GFR calculated using the 2020 CKD_EPI creatinine equation. Blood (Blood, Venous) 06/01/2024 8:42 AM CDT 06/01/2024 9:30 AM CDT Robert Kumar APRNN.P. LAB BLOOD AD D-ON Performing Organization Address [facility]/ZIP Co de Phone Number [facility] [address] [facility] [address] [place] [address] * AST (Aspartate Aminotransferase) (06/01/2024 8:42 AM CDT) Aspartate Aminotransferase (AST), S 20 8 - 43 U/L 06/01/2024 10:37 AM CDT DTL Blood (Blood, Venous) 06/01/2024 8:42 AM CDT 06/01/2024 9:30 AM CDT Robert Kumar APRNN.PSarina LAB BLOOD AD D-ON [facility] [address] [place] [address], [facility] [address] [place] [address] * CRP (C-Reactive Protein) (06/01/2024 8:42 AM CDT) C-Reactive Protein (CRP), S 3.2 <5.0 mg/L 06/01/2024 10:37 AM CDT DTL Blood (Blood, Venous) 06/01/2024 8:42 AM CDT 06/01/2024 9:30 AM CDT Pedro Donnelly APRN, C.N.P. LAB BLOOD AD D-ON [facility] [address] [place] [address] * (ABNORMAL) Sedimentation Rate (06/01/2024 8:42 AM CDT) Pathologist [facility] Sedimentation Rate, B 102(H) 2 - 22 mm/h 06/01/2024 11:00 AM CDT DTL Blood (Blood, Venous) 06/01/2024 8:42 AM CDT 06/01/2024 9:12 AM CDT Pedro Donnelly APRN, Apolonia.N.P. LAB BLOOD AD D-ON [facility] [address] [place] [address] * (ABNORMAL) CBC with Differential, Blood (06/01/2024 8:42 AM CDT) Hemoglobin 12.2 11.6 - 15.0 g/dL 06/01/2024 [...] Donnelly APRN, C.N.P. LAB BLOOD AD D-ON [facility] [address] [place] [address], [facility] DTL [facility] [address] [place] [address] DHPM [facility] [address] [place] [address] documented in this encounter Visit Diagnoses Diagnosis Lupus Systemic Erythematosus (HCC) Hepatitis Autoimmune (HCC) Splenomegaly Acquired Thrombocytopenia (HCC) High Risk Medication Medication Therapy Custodial Not Anticoagulant documented in this encounter Care Teams Molding And Trim Installer Relationship Specialty Start Date End Date Elsewhere, Pcp PCP - General Family Medicine 03/25/21 documented as of this encounter
--- OUTSIDE RECORDS SUMMARY | 2024-06-10 08:56 | XMS_ITS | Clinical Summary ---
Author Organization [facility] Address [place], [place] [address] Care Team Providers Care Ecclesiastical Worker Name Role Phone XiangMario Alberto Kenneth DO Unavailable [phone] Ino Rodriguez MD Unavailable Pcp, No Primary Care Provider Unavailabl e Allergies No known active allergies Medications Medication Sig Dispensed Refills Start Date End Date Status valACYclovir (VALTREX) 1 gram tablet 12/07/2019 Active lisinopril-hydroch lorothiazide, 20-25 mg, (PRINZIDE, ZESTORETIC) 20-25 mg per tablet Take 1 Tablet by mouth. Active omeprazole (PRILOSEC) 40 mg Delayed-Release capsule TAKE 1 CAPSULE BY MOUTH EVERY DAY 07/04/2020 Active pravastatin (PRAVACHOL) 40 mg tablet TAKE 1 TABLET BY MOUTH EVERY DAY 09/04/2020 Active predniSONE (DELTASONE) 5 mg tablet TAKE 1 TABLET BY MOUTH 2 TIMES A DAY. X 1 MONTH, THEN TAKE 1 TABLET PER DAY 10/19/2020 Active azaTHIOprine (IMURAN) 50 mg tablet azathioprine 50 mg tablet TAKE 4 TABLETS (200 MG TOTAL) BY MOUTH DAILY. 03/28/2021 Active hydrOXYchloroQUINE (PLAQUENIL) 200 mg tablet Take 400 mg by mouth. 04/22/2021 Active colestipoL (COLESTID) 1 gram tablet Take 1 g by mouth. 04/19/2021 Active oxybutynin XL (DITROPAN XL) 10 mg CR tabletIndications: Overactive bladder Take 1 Tablet (10 mg) by mouth once daily. 90 Tablet 05/09/2021 Active mirabegron EXTENDED-release (Myrbetriq) 50 mg tablet Myrbetriq 50 mg tablet,extended release TAKE 1 TABLET BY MOUTH EVERY DAY PA approved! Active estradioL (ESTRACE) 0.01% (0.1 mg/g) vaginal creamIndications:A trophic vaginitis Insert 1 g into the vagina every Thursday, Thursday and Thursday. 42.5 g 3 08/09/2021 Active vibegron (Gemtesa) 75 mg tablet Take 1 Tablet (75 mg) by mouth once daily. 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 Personal history of tobacco use, presenting hazards to health 08/08/2008 Immunizations Name Administration Dates Next Due Td (Age >=7 Years) 09/30/1996 Tdap 08/08/2008 Family History Medical History Relation Name Comments Arthritis Father Heart Disease Father pacemaker Heart Disease Maternal Grandfather Heart Disease Maternal Grandmother Arthritis Mother Hypertension Mother Other Other cousin with Lup us Heart Disease Paternal Grandfather Other Paternal Grandmother leukemi a Relation Name Status Comments Father Maternal Grandfather Maternal Grandmother Mother Other Paternal Grandfather Paternal Grandmother Social History Tobacco Use Types Packs/Day Years Used Date Smoking Tobacco: Former Cigarettes 1 23 1 09/14/1994 - 07/15/2018 Smokeless Tobacco: Never Tobacco Cessation:Counseling Given: Yes Alcohol Use Standard Drinks/Week Comments No 0 (1 standard drink = 0.6 oz pur e alcohol) Social Connections Answer Date Recorded Frequency of Communication with Friends and Fami ly Not on file 09/07/2021 Financial Resource Strain Answer Date R ecorded Difficulty of Paying Living Expenses Not on file 09/07/2021 Difficulty of Paying Living Expenses Not on file 09/07/2021 Sex and Gender Information Value Date Recorded Sex Assigned at Not on file Gender Identity Not on file Sexual Orientation Not on file Obstetrics History Last Filed Vital Signs Vital Sign Reading Time Taken Comments Blood Pressure 122/69 07/01/2023 3:00 PM CDT tow er Pulse 67 07/01/2023 3:00 PM CDT Temperature 36.7 ??C (98 ??F) 11/13/2020 9:33 AM BIOMETRICS ANALYST Respiratory Rate 16 08/08/2021 4:46 PM BIOMETRICS ANALYST Oxygen Saturation 99% 07/01/2023 3:00 PM CDT Inhaled Oxygen Concentration - - Weight 117.9 kg (260 lb) 07/01/2023 3:00 PM CDT Height 167.6 cm (5' 6) 11/13/2020 9:33 AM BIOMETRICS ANALYST Body Mass Index 41.97 11/13/2020 9:33 AM BIOMETRICS ANALYST Plan of Treatment Health Maintenance Due Date Last Done Comments Depression screening for age 12+ 1976 HIV for age 15-65 1979 Hepatitis C screening for age 18-79 1982 Colonoscopy through age 75 2009 Mammogram for age 45-75 08/08/2009 08/08/2008 Lipids for age 45-75 08/08/2013 08/08/2008 Zoster (shingles) series for age 50+ (1 of 2) 2014 Tetanus booster 08/08/2018 08/08/2008, 09/30/1996 BMI (ht and wt on same day) for age 18+ 11/13/2021 11/13/2020 COVID-19 vaccine series (2023- season) 2024 07/26/2021, 12/20/2020, 11/23/2020 Influenza for age 50-64 05/08/2024 Pap test for age 21-65 09/20/2024 , 09/20/2021, 11/03/2016, Additional history exists Tdap Completed 08/08/2008 Pneumococcal series for age 6-64 Aged Out No longer eligible based on patient's age to complete this topic Procedures Procedure Name Priority Date/Time Associated Diagnosis Comments HPV HIGH RISK Routine 09/20/2021 12:00 PM BIOMETRICS ANALYST XR MAMMO BILAT SCREEN FFDM (IA) Routine 08/08/2008 11:01 AM BIOMETRICS ANALYST Other Screening Mammogram LIPID PANEL Routine 08/08/2008 10:24 AM BIOMETRICS ANALYST Screening for Ischemic Heart Disease from Last 3 Months or Most Recently Relevant to Health Maintenance Results * HPV HIGH RISK (09/20/2021 12:00 PM BIOMETRICS ANALYST) TYPE 16 Negative Negative 09/24/2021 2:16 PM BIOMETRICS ANALYST [facility] TYPE 18 Negative Negative 09/24/2021 2:16 PM BIOMETRICS ANALYST [facility] OTHER HIGH RISK TYPES Negative Negative 09/24/2021 2:16 PM BIOMETRICS ANALYST [facility] Other (Other) 09/20/2021 12: 00 PM BIOMETRICS ANALYST 09/23/2021 7:41 AM BIOMETRICS ANALYST Narrative [facility] - 09/24/2021 2:16 PM BIOMETRICS ANALYST HPV types 16, 18, 31, 33, 35, 39, 45, 51, 52, 56, 58, 59, 66 and 68 DNA were undetectable or below the pre-set threshold. Methodology: Rayshawn Reno 4800 HPV Test Lorin Mathur MD [facility] [address] [place] [address], [place] * XR MAMMO BILAT SCREEN FFDM (08/08/2008 11:01 AM BIOMETRICS ANALYST) MAMMOGRAM ACR 2 Benign Finding Anatomical Region Laterality Modality BREASTS, Breast Left, Breast Right Bilateral Mammography 08/08/2008 11:0 1 AM BIOMETRICS ANALYST Narrative 08/09/2008 8:11 AM BIOMETRICS ANALYST Benign findings noted on mammogram. ??For complete description of the mammographic examination, please reference scanned document within [facility]. ?? We are mailing a results letter to the patient. ACR 2 Benign Finding Procedure Note James Beck S - 08/09/2008 Benign findings noted on mammogram. For complete description of themammographic examination, please reference scanned document [facility]. We are mailing a results letter to the patient. ACR 2 Benign Finding Royal Garcia MD MAMMO * LIPID PANEL (08/08/2008 10:24 AM BIOMETRICS ANALYST) CHOLESTEROL,TOTAL 156 110 - 199 mg/dL [facility] TRIGLYCERIDES 126 <150 mg/dL [facility] HDL CHOLESTEROL 41 >40 mg/dL [facility] CHOL/HDL RATIO 3.81 <4.51 [facility] LDL CHOLESTEROL 90 <131 mg/dL [facility] PATIENT STATUS Fasting [facility] Blood specimen (specimen) BLOOD SPECIMEN / Unknown 08/08/2008 10:24 AM BIOMETRICS ANALYST 08/08/2008 10:20 AM BIOMETRICS ANALYST Royal Garcia MD CHEMISTRY [facility] [address] [place] [address] from Last 3 Months or Most Recently Relevant to Health Maintenance Care Teams Ecclesiastical Worker Relationship Specialty Start Date End Date Pcp, No . PCP - General 01/28/21 Mario Alberto Otoole DO Rheumatology Rheumatology 11/17/11 Ino Rodriguez MD Rheumatology Rheumatology 05/19/12
--- OUTSIDE RECORDS SUMMARY | 2024-06-10 08:57 | XMS_ITS | Encounter Summary ---
Author Organization [facility] Address [address] [place] [address] Care Team Providers Care Screwhead Stoner And Polisher Name Role Phone Elsewhere, Pcp Primary Care Provider Unavailabl e Encounter Details Date Type Department Care Team (Latest Contact Info) Description 03/09/2024 Clinical Communication Division of Gastroenterology in [place], [place] [address] [place] [address] Rohan Armenta M.D. [address] [place] [address] Social History Tobacco Use Types Packs/Day Years Used Date Smoking Tobacco: Former Cigarettes 0 09/07/1986 - 07/15/2018 Smokeless Tobacco: Never Alcohol Use Standard Drinks/Week Comments No 0 (1 standard drink = 0.6 oz pur e alcohol) Humiliation, Afraid, Rape, and Kick questionnair e [...] declined 07/06/2022 How often do you attend moravian or yazidi serv ices? Patient declined 07/06/2022 Do you belong to any clubs o r organizations such as moravian groups, unions, fraternal or athletic groups, [...] medical care, and heating? Somewhat hard 07/06/2022 [facility] of Occupat ional Health - Occupational Stress [...] to strenuous exercise (like a brisk walk)? 4 days 07/06/2022 On average, how many minutes do you engage in exercise at this level? 10 min 07/06/2022 Hunger Vital Sign Answer Date Recorded Within [...] medical appointments or from getting medications? No 06/09 In the past 12 months, has l ack of transportation kept you from meetings, work, or from getting things needed for daily living? No 07/06/2022 Housing Stability Vital Sign Answer Gerber e Recorded In the last 12 months, was t here a time when you were not able to pay the mortgage or rent on time? Yes 07/06/2022 In the last 12 months, how many places have you lived? 1 07/06/2022 In the last 12 months, was t here a time when you did not have a steady place to sleep or slept in a fpc (including now)? No 07/06/2022 Nutrition Answer Date Recorded Nutrition: EVOO Fat Source No 07/06 On average, how many serving s of fruits and vegetables do you eat per day (serving size is equal to 1 cup or approximately the size of a tennis ball)? 2-3 07/06/2022 Dental Answer Date Recorded Dental: Regular Dentist Yes 10/27/19 Employment Answer Date Recorded Employment status Employed and actively working without restrictions 07/06/2022 Education Answer Date Recorded What is the [...] on file documented as of this encounter Visit Diagnoses Not on filedocumented in this encounter Care Teams Screwhead Stoner And Polisher Relationship Specialty Start Date End Date Elsewhere, Pcp PCP - General Family Medicine 03/25/21 documented as of this encounter
--- OUTSIDE RECORDS SUMMARY | 2024-06-10 08:57 | XMS_ITS | Encounter Summary ---
Author Organization [facility] Address [address] [place] [address] Care Team Providers Care Weather Clerk Name Role Phone Elsewhere, Pcp Primary Care Provider Unavailabl e Reason for Referral * Outpatient (Routine) - Authorized Specialty Diagnoses / Procedures Referred By Contac t Referred To Contact Rheumatology Pedro Donnelly APRN, C.N.P. [address] [place] [phone] [facility] Referral ID Status Reason Start Date Expiration Date V isits Requested Visits Authorized [id number] Authorized 06/01/2024 12/01/2025 1 1 Reason for Visit * Outpatient (Routine) - Closed Specialty Diagnoses / Procedures Referred By Contac t Referred To Contact Rheumatology Diagnoses Lupus Systemic Erythematosus (HCC) Hepatitis Autoimmune (HCC) Splenomegaly Acquired Thrombocytopenia (HCC) High Risk Medication Pedro Donnelly APRN, C.N.P. 200 [place] [address] [facility] Referral ID Status Reason Start Date Expiration Date Visits Re quested Visits Authorized [id number] Closed 04/13/2023 04/12/2026 1 1 Encounter Details Date Type Department Care Team (Latest Contact Info) Description 06/01/2024 2:00 PM CDT Office Visit Division of Rheumatology in [place], [place] 200 [place] [phone] Pedro Donnelly APRN, C.N.P. 200 [place] [address] Lupus Systemic Erythematosus (HCC); Hepatitis Autoimmune (HCC); Splenomegaly Acquired; Thrombocytopenia (HCC); High Risk Medication Social History Tobacco Use Types Packs/Day Years Used Date Smoking Tobacco: Former Cigarettes 0 09/07/1986 - 07/15/2018 Smokeless Tobacco: Never Alcohol Use Standard Drinks/Week Comments No 0 (1 standard drink = 0.6 oz pur e alcohol) [facility] Utilities Answer Date Recorded In the past 12 months has e electric, gas, oil, or water [employer] threatened to shut off services in your [...] declined 07/06/2022 How often do you attend yazidi or druze serv ices? Patient declined 07/06/2022 Do you belong to any clubs o r organizations such as yazidi groups, unions, fraternal or athletic groups, [...] medical care, and heating? Somewhat hard 07/06/2022 [facility] - Occupational Stress Questionnaire Answer Date Recorded [...] your living situation today? I have a st tim place to live 05/26/2024 Education Answer Date [...] ??F) 06/01/2024 1:41 PM CDT Respiratory Rate - - Oxygen Saturation - - Inhaled Oxygen Concentration - - Weight 117 kg (257 lb 15 oz) 06/01/2024 1:41 PM CDT Height 164.6 cm (5' 4.8) 06/01/2024 1:41 PM CDT Body Mass Index 43.18 06/01/2024 1:41 PM CDT documented in this encounter Progress Notes * Pedro Donnelly, ANTHONY, C.N.P. - 06/01/2024 2:00 PM CDT SUBJECTIVE CHIEF COMPLAINT / REASON FOR VISIT Vee Danielson is a 58 y.o. female who presents as an established patient for follow up of systemic lupus erythematosus. HISTORY OF PRESENT ILLNESS Vee Danielson returns in follow-up for systemic lupus erythematosus. She was seen in consultation by Dr. Bal in June 2012. She continued to follow with him until I saw her for her first visit in 2017. Laboratory studies have included positive CHAPARRITA, positive SSA, and positive Cisneros antibody. She did have positive beta two IgM, antiphospholipid IgM, and PS/PT IgM. She has had chronic hypocomplementemia of C4. Double-stranded DNA negative. 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 Therapy has included topical treatments, prednisone, Plaquenil (discontinued due to weakness), azathioprine (current), and CellCept (rash). Benlysta has been discussed but has not been initiated. Methotrexate and leflunomide are avoided due to liver fibrosis and previous cutaneous lupus. She also has a known history of autoimmune hepatitis and was later found to have evidence of fibrosis of the liver. She has had mild splenomegaly.No history of thrombotic event. She returns annual follow-up today. She is reporting today that she has had some ongoing issues with skin and joints. She reports she has had more joint pain recently particularly in the shoulders, ankles at times. She reports these being sore with some activities. The ankles she will note giving way at times. She has been more sedentary in recent years in his wondering if this may be contributing to some of the ankle pain. Overall she does perceive that perhaps her lupus is a bit more active. She has also noticed some increased rash over the forearms, very mild rash but something that she has noticed in the past when she had experience flares of her lupus. She is not reporting any consistent cardiopulmonary symptoms. If she does lie flat on her back she can develop chest pain but this does resolve if she rolls to either of her sides. No exertional chest pain. She is not reporting any shortness of breath. She does not report any mouth or nose sores. She has been undergoing some dentalwork recently, perhaps over the past year. She did have a cracked tooth that the dentist pulled along with bone tissue. She had an implant placed and will be getting the cap for that implant in the next week or two. She continues hydroxychloroquine 400 mg daily, azathioprine 200 mg daily. She does utilize ibuprofen more consistently of recent reporting that her stomach tolerates this better than the a leave. Previous Reports Reviewed:historical medical records, lab reports and office notes The following portions of the patient's history were reviewed and updated as appropriate: allergies, current medications, medical history and problem list. REVIEW OF SYSTEMS Pertinent positives and negatives as documented in the above history of present illness. REVIEW OF SYSTEMS OBJECTIVE PHYSICAL EXAM Vitals reviewed. Constitutional Appearance: She is well-developed. HENT Mouth/Throat: Pharynx: Oropharynx is clear. Eyes Pupils: Pupils are equal, round, and reactive to light. Cardiovascular Rate and Rhythm: Normal rate and regular rhythm. Pulmonary Effort: Pulmonary effort is normal. Breath sounds: Normal breath sounds. Abdominal Palpations: Abdomen is soft. There is no mass. Tenderness: There is abdominal tenderness (Left upper quadrant, more mild than previous). Musculoskeletal General: No swelling or tenderness. Cervical back: Normal range of motion. Comments: She is tender over the shoulder joint both anterior and posteriorly today. No tenderness noted in the hands today. She is able to make full fist. No synovitis noted on clinical exam today. She is not describing any tenderness in her proximal or distal legs. No knee or hip pain today. Lymphadenopathy Cervical: No cervical adenopathy. Skin General: Skin is warm and dry. Findings: Rash (Mild erythema noted over the bilateral forearms with scattered raised lesions.) present. Neurological Mental Status: She is alert and oriented to person, place, and time. Lab: Laboratory studies completed prior to today's visit were reviewed. These include sedimentationrate elevated just over 100, this has been consistent for patient for the past three years side from her very last visit a year ago when it was lower. Creatinine is elevated today at 1.05. ALT, AST, CRP all normal. Complement total and C3 normal. Complement C4 is low but improved on previous. Urinalysis negative for abnormal protein or hematuria. Disease Activity Systemic Erythematous Disease Activity Index Calculator (SLEDAI) Total Score: 4 ASSESSMENT / PLAN #1 Lupus Systemic Erythematosus (HCC) #2 Hepatitis Autoimmune (HCC) #3 Splenomegaly Acquired #4 Thrombocytopenia (HCC) #5 High Risk Medication SLEDAI score 4 today. She is following annually with Gastroenterology regarding her autoimmune hepatitis. Will proceed with plan as follows: Continue hydroxychloroquine 400 mg daily. Eye exam is up-to-date from March 2024 and is on file in the media tab. Continue azathioprine 200 mg daily. She will continue with lab monitoring to include CBC with differential, AST, ALT every two months. Prednisone taper starting today and tapering over the next 20 days. If dental provider not comfortable with this plan then will arrange for bilaterally shoulder injections (glenohumeral joint) and patient should touch bases with dermatology locally for the potential of topical steroids. Elevated creatinine was noted today - it was recommended she discontinue use of the ibuprofen whileon prednisone and monitor blood pressure and connect with PCP if consistently elevated. Will continue to monitor thrombocytopenia which remains stable. I would recommend that she consider home overnight oximetry testing through her local care provider. I will plan to see her back in a year sooner if concerns arise. I discussed with her that I would have a low threshold to have her return in follow-up sooner. FOLLOW-UP Long-term management and follow-up: Ms. Danielson will continue longitudinal management and follow-upin the Division of Rheumatology at [facility]. Next appointment in 12 months. Rheumatology-related medications: Prescriptions, laboratory monitoring, and refills will be managedby the Division of Rheumatology at [facility]. Disease flares or relapse: Division of Rheumatology flare management protocols will be implemented. PATIENT EDUCATION Ready to learn, no apparent learning barriers were identified; learning preferences include listening. Explained diagnosis and treatment plan; patient expressed understanding of the content. documented in this encounter Plan of Treatment Scheduled Orders Name Type Priority Associated Diagnoses Orde r Schedule CBC with Differential, Blood Lab Routine Lupus Systemic Erythematosus ([facility]) Expected: 06/01/2025 (Approximate), Expires: 06/01/2025 Sedimentation Rate Lab Routine Lupus Systemic Erythematosus ([facility]) Expected: 06/01/2025 (Approximate), Expires: 06/01/2025 CRP (C-Reactive Protein) Lab Routine Lupus Systemic Erythematosus ([facility]) Expected: 06/01/2025 (Approximate), Expires: 06/01/2025 AST (Aspartate Aminotransferase) Lab Routine Lupus Systemic Erythematosus ([facility]) Expected: 06/01/2025 (Approximate), Expires: 06/01/2025 Creatinine with Estimated GFR Lab Routine Lupus Systemic Erythematosus ([facility]) Expected: 06/01/2025 (Approximate), Expires: 06/01/2025 Complement C3 Lab Routine Lupus Systemic Erythematosus ([facility]) Expected: 06/01/2025 (Approximate), Expires: 06/01/2025 Complement C4 Lab Routine Lupus Systemic Erythematosus ([facility]) Expected: 06/01/2025 (Approximate), Expires: 06/01/2025 Complement, Total Lab Routine Lupus Systemic Erythematosus ([facility]) Expected: 06/01/2025 (Approximate), Expires: 06/01/2025 Urinalysis, with Microscopic: Urine, Voided Lab Routine Lupus Systemic Erythematosus ([facility]) Expected: 06/01/2025 (Approximate), Expires: 06/01/2025 Protein/Creatinine Ratio, Random, Urine Lab Routine Lupus Systemic Erythematosus ([facility]) Expected: 06/01/2025 (Approximate), Expires: 08/31/2025 Double-Stranded DNA (dsDNA) Antibodies, IgG Lab Routine Lupus Systemic Erythematosus ([facility]) Expected: 06/01/2025 (Approximate), Expires: 08/31/2025 ALT (Alanine Aminotransferase) Lab Routine Lupus Systemic Erythematosus (HCC) Expected: 06/01/2025 (Approximate), Expires: 08/31/2025 Scheduled Referrals Name Type Priority Associated Diagnoses Order Schedule Rheumatology office visit (clinic) Outpatient Referral Routine Expected: 06/01/2025 (Approximate), Expires: 08/31/2025 documented as of this encounter Visit Diagnoses Diagnosis Lupus Systemic Erythematosus (HCC) Hepatitis Autoimmune (HCC) Splenomegaly Acquired Thrombocytopenia (HCC) High Risk Medication documented in this encounter Care Teams Weather Clerk Relationship Specialty Start Date End Date Elsewhere, Pcp PCP - General Family Medicine 03/25/21 documented as of this encounter
--- OUTSIDE RECORDS SUMMARY | 2024-06-10 08:57 | XMS_ITS | Encounter Summary ---
Author Organization [facility] Address [address] [place] [address] Care Team Providers Care General Assignment Reporter Name Role Phone Elsewhere, Pcp Primary Care Provider Unavailabl e Encounter Details Date Type Department Care Team (Late st Contact Info) Description 09/02/2012 Historical Ophthalmology RST OPH Thom Onofre M.D. [address] [place] [address] Social History Tobacco Use Types Packs/Day Years Used Date Smoking Tobacco: Never Assessed Sex and Gender Information Value Date Recorded Sex Assigned at Female 03/09/2018 3:30 PM CDT Gender Identity Female 03/09/2018 3:30 PM CDT Sexual Orientation Straight 03/09/2018 3: 30 PM CDT documented as of this encounter Progress Notes * Thom Onofre M.D. - 09/02/2012 8:06 AM CST Eye General CHIEF COMPLAINT plaquenil screening. HISTORY OF PRESENT ILLNESS 47 year old female here for Plaquenil screening. Notes redness and itching both eyes x one week. Denies any mattering or discharge. Denies any cold symptoms. Vision is stable. IMPRESSION / REPORT / PLAN #1 Plaquenil screening exam The [employer] has recently changed the recommendations for plaquenil screening by ophthalmology. The new recommendations include baseline visual david (DWAYNE 10-2) and baseline macular OCT by [employer]. The baseline tests should be done within the first few months of starting plaquenil. If the patient is still on plaquenil five years later, these tests are then to be repeated annually from that time forward as long as [...] eye syndrome CDM Reports - EYEGEN Id: [id number] Status: Fnl documented in this encounter Plan of Treatment Not on file documented as of this encounter Visit Diagnoses Not on filedocumented in this encounter Additional Health Concerns Infection Onset Date Last Indicated Resolved Time COVID19 Pending 01/23/2020 01/23/2020 02/15/2020 8 :07 AM CDT documented as of this encounter Care Teams General Assignment Reporter Relationship Specialty Start Date End Date Elsewhere, Pcp PCP - General Family Medicine 03/25/21 documented as of this encounter
--- OUTSIDE RECORDS SUMMARY | 2024-06-10 08:57 | XMS_ITS | Encounter Summary ---
Author Organization [facility] Address [address] [place] [address] Care Team Providers Care Automation Machine Builder Name Role Phone Elsewhere, Pcp Primary Care Provider Unavailabl e Reason for Visit * Reason Onset Date Comments Lab Monitoring 03/22/2024 AZA- first delay Encounter Details Date Type Department Care Team (Latest Contact Info) Description 03/22/2024 Clinical Communication Division of Rheumatology in [place], [place] [address] [place] [address] Faye Curtis, RSarinaNSarina [address] [place] [address] Lab Monitoring (AZA- first delay) Social History Tobacco Use Types Packs/Day Years [...] declined 07/06/2022 How often do you attend restorationist or uatsdin serv ices? Patient declined 07/06/2022 Do you belong to any clubs o r organizations such as restorationist groups, unions, fraternal or athletic groups, [...] medical care, and heating? Somewhat hard 07/06/2022 [facility] [place] of Occupat ional Health - Occupational Stress [...] or slept in a longterm (including now)? No 07/06/2022 Nutrition Answer Date [...] encounter Miscellaneous Notes * Telephone Encounter - Faye Curtis R.N. - 03/22/2024 8:25 AM CDT Patient missed scheduled lab appointment for medication monitoring. Nursing contacted patient via portal online message and provided laboratory medication monitoring information. If needed a letter instructing patient of need to complete medication monitoring labs will be sent.Patient will be contacted to reschedule lab appointment. documented in this encounter Plan of Treatment Not on file documented as of this encounter Visit Diagnoses Not on filedocumented in this encounter Care Teams Automation Machine Builder Relationship Specialty Start Date End Date Elsewhere, Pcp PCP - General Family Medicine 03/25/21 documented as of this encounter
--- OUTSIDE RECORDS SUMMARY | 2024-06-10 08:57 | XMS_ITS | Encounter Summary ---
Author Organization [facility] Address [address] [place] [address] Care Team Providers Care Medical And Health Services Manager Name Role Phone Elsewhere, Pcp Primary Care Provider Unavailabl e Reason for Visit * Reason Comments Med Refill Encounter Details Date Type Department Care Team (Late st Contact Info) Description 04/09/2024 Refill Division of Rheumatology in [place], [place] [address] [place] [phone] Pedro Donnelly, GAS MAKER HELPER, C.N.P. [address] [place] [address] Med Refill Social History Tobacco Use Types Packs/Day Years [...] declined 07/06/2022 How often do you attend episcopal or baptism serv ices? Patient declined 07/06/2022 Do you belong to any clubs o r organizations such as episcopal groups, unions, fraternal or athletic groups, [...] medical care, and heating? Somewhat hard 07/06/2022 [facility] [place] of Occupat ional Health - Occupational Stress [...] or slept in a long-term (including now)? No 07/06/2022 Nutrition Answer Date [...] encounter Miscellaneous Notes * Telephone Encounter - Yousif Rebolledo R.N. - 04/14/2024 1:47 PM CDT Prescription renewal request for azathioprine (Imuran) received from pharmacy. HISTORY OF PRESENT ILLNESS Last Rheum / VASC visit: 04/13/23 with Pedro Donnelly APRN, ARTIST AGENT Future office visit: 06/01/24 Last monitoring labs: 03/28/24: results within parameters Prescription request matches current plan of care. Prescription request matches a current prescription in the Medication List. Exclusion criteria: None (If an alert appeared, it was determined to be an approved exception) ASSESSMENT/PLAN Prescription request renewed per nursing protocol. documented in this encounter Plan of Treatment Not on file documented as of this encounter Visit Diagnoses Diagnosis Lupus Systemic Erythematosus (HCC) documented in this encounter Care Teams Medical And Health Services Manager Relationship Specialty Start Date End Date Elsewhere, Pcp PCP - General Family Medicine 03/25/21 documented as of this encounter
--- OUTSIDE RECORDS SUMMARY | 2024-06-10 08:57 | XMS_ITS | Encounter Summary ---
Author Organization [facility] Address [address] [place] [address] Care Team Providers Care Demurrage Agent Name Role Phone Elsewhere, Pcp Primary Care Provider Unavailabl e Encounter Details Date Type Department Care Team (Late st Contact Info) Description 08/09/2014 Historical Ophthalmology RST OPH Lori Chamorro M.D. [address] [place] [address] Social History Tobacco Use Types Packs/Day Years Used Date Smoking Tobacco: Never Assessed Sex and Gender Information Value Date Recorded Sex Assigned at Female 03/09/2018 3:30 PM CDT Gender Identity Female 03/09/2018 3:30 PM CDT Sexual Orientation Straight 03/09/2018 3: 30 PM CDT documented as of this encounter Progress Notes * Lori Chamorro - 08/09/2014 7:04 AM CST Eye General CHIEF COMPLAINT Plaquenil HISTORY OF PRESENT ILLNESS She has been on Plaquenil since 2011 (400 mg/day). No vision changes. Most recent refraction 05/21. Pigmented caruncle removed by Dr. Morocho in [place] 12/19. IMPRESSION / REPORT / PLAN #1 High risk medication, hydroxychloroquine No evidence of toxicity. Annual exams. No ancillary testing likely necessary until 2017. DIAGNOSIS #1 High risk medication, hydroxychloroquine [facility] Reports - EYEGEN Id: [id number] Status: Fnl documented in this encounter Plan of Treatment Not on file documented as of this encounter Visit Diagnoses Not on filedocumented in this encounter Additional Health Concerns Infection Onset Date Last Indicated Resolved Time COVID19 Pending 01/23/2020 01/23/2020 02/15/2020 8 :07 AM CDT documented as of this encounter Care Teams Demurrage Agent Relationship Specialty Start Date End Date Elsewhere, Pcp PCP - General Family Medicine 03/25/21 documented as of this encounter
--- OUTSIDE RECORDS SUMMARY | 2024-06-10 08:57 | XMS_ITS | Encounter Summary ---
Author Organization [facility] Address [address] [place] [address] Care Team Providers Care Tube Puller Name Role Phone Elsewhere, Pcp Primary Care Provider Unavailabl e Reason for Visit * Reason Comments Med Refill Encounter Details Date Type Department Care Team ([facility] st Contact Info) Description 05/29/2024 Refill Division of Rheumatology in [place], [place] [address] [place] [phone] Pedro Donnelly, BREAD WRAPPING MACHINE FEEDER, C.N.P. [address] [place] [phone] Med Refill Social History Tobacco Use Types Packs/Day Years Used Date Smoking Tobacco: Former Cigarettes 0 09/07/1986 - 07/15/2018 Smokeless Tobacco: Never Alcohol Use Standard Drinks/Week Comments No 0 (1 standard drink = 0.6 oz pur e alcohol) [facility] Utilities Answer Date Recorded In the past 12 months has [facility] [employer], oil, or water [employer] threatened to shut off services in your [...] declined 07/06/2022 How often do you attend roman catholic or pentecostalism serv ices? Patient declined 07/06/2022 Do you belong to any clubs o r organizations such as roman catholic groups, unions, fraternal or athletic groups, [...] medical care, and heating? Somewhat hard 07/06/2022 [facility] [place] of Occupat ional Health - Occupational Stress [...] your living situation today? I have a [facility] place to live 05/26/2024 Education Answer Date [...] (HCC) documented in this encounter Care Teams Tube Puller Relationship Specialty Start Date End Date Elsewhere, Pcp PCP - General Family Medicine 03/25/21 documented as of this encounter
--- OUTSIDE RECORDS SUMMARY | 2024-06-10 08:57 | XMS_ITS | Encounter Summary ---
Author Organization [facility] Address [address] [place] [address] Care Team Providers Care First Crusher Name Role Phone Elsewhere, Pcp Primary Care Provider Unavailabl e Reason for Visit * Reason Onset Date Comments Eye Exam 03/17/2024 03-15-24 Encounter Details Date Type Department Care Team (Latest Contact Info) Description 03/17/2024 Clinical Communication Division of Rheumatology in [place], [place] [address] [place] [address] Pedro Donnelly, PROJECT FACILITATOR, C.N.P. [address] [place] [address] Eye Exam (03-15-24) Social History Tobacco Use Types Packs/Day Years [...] declined 07/06/2022 How often do you attend adventism or christianity serv ices? Patient declined 07/06/2022 Do you belong to any clubs o r organizations such as adventism groups, unions, fraternal or athletic groups, [...] medical care, and heating? Somewhat hard 07/06/2022 [facility] [place] of Occupat ional Health - Occupational Stress [...] or slept in a chcf (including now)? No 07/06/2022 Nutrition Answer Date [...] encounter Miscellaneous Notes * Telephone Encounter - Layton Turner, R.N. - 03/21/2024 1:04 PM CDT Eye exam from 03/15/24 is normal/stable for patient. Follow up in 1 year. documented in this encounter Plan of Treatment Not on file documented as of this encounter Visit Diagnoses Not on filedocumented in this encounter Care Teams First Crusher Relationship Specialty Start Date End Date Elsewhere, Pcp PCP - General Family Medicine 03/25/21 documented as of this encounter
--- OUTSIDE RECORDS SUMMARY | 2024-06-10 08:57 | XMS_ITS | Encounter Summary ---
Author Organization [facility] Address [address] [place] [address] Care Team Providers Care Official Greeter Name Role Phone Elsewhere, Pcp Primary Care Provider Unavailabl e Encounter Details Date Type Department Care Team (Late st Contact Info) Description 08/26/2013 Historical Ophthalmology RST OPH Rock Mancuso O.D. [address] [place] [address] Social History Tobacco Use Types Packs/Day Years Used Date Smoking Tobacco: Never Assessed Sex and Gender Information Value Date Recorded Sex Assigned at Female 03/09/2018 3:30 PM CDT Gender Identity Female 03/09/2018 3:30 PM CDT Sexual Orientation Straight 03/09/2018 3: 30 PM CDT documented as of this encounter Progress Notes * Rock Mancuso O.D. - 08/26/2013 8:33 AM CST Eye General CHIEF COMPLAINT Plaquenil screening. HISTORY OF PRESENT ILLNESS Patient feels like glasses are not working as well as they should be. She does feel though that shehas to have them on all the time. [...] #1 High risk medication/plaquenil CDM Reports - EYEGEN Id: [id number] Status: Fnl documented in this encounter Plan of Treatment Not on file documented as of this encounter Visit Diagnoses Not on filedocumented in this encounter Additional Health Concerns Infection Onset Date Last Indicated Resolved Time COVID19 Pending 01/23/2020 01/23/2020 02/15/2020 8 :07 AM CDT documented as of this encounter Care Teams Official Greeter Relationship Specialty Start Date End Date Elsewhere, Pcp PCP - General Family Medicine 03/25/21 documented as of this encounter
--- OUTSIDE RECORDS SUMMARY | 2024-06-10 08:57 | XMS_ITS | Encounter Summary ---
Author Organization [facility] Address [address] [place] [address] Care Team Providers Care Pigs Feet Finisher Name Role Phone Elsewhere, Pcp Primary Care Provider Unavailabl e Encounter Details Date Type Department Care Team (Late st Contact Info) Description 08/29/2016 Historical Ophthalmology RST OPH Paige Rainey M.D. [address] [place] [address] Social History Tobacco Use Types Packs/Day Years Used Date Smoking Tobacco: Never Assessed Sex and Gender Information Value Date Recorded Sex Assigned at Female 03/09/2018 3:30 PM CDT Gender Identity Female 03/09/2018 3:30 PM CDT Sexual Orientation Straight 03/09/2018 3: 30 PM CDT documented as of this encounter Progress Notes * Paige Rainey M.D. - 08/29/2016 7:40 AM CST Eye General CHIEF COMPLAINT Plaquenil check HISTORY OF PRESENT ILLNESS Started using Plaquenil in 2011. Denies diplopia and pain. Burning; both eyes; couple months; on and off; rare. LAD: Here for general eye exam. [...] lupus erythematosis CDM Reports - EYEGEN Id: [id number] Status: Fnl documented in this encounter Plan of Treatment Not on file documented as of this encounter Visit Diagnoses Not on filedocumented in this encounter Additional Health Concerns Infection Onset Date Last Indicated Resolved Time COVID19 Pending 01/23/2020 01/23/2020 02/15/2020 8 :07 AM CDT documented as of this encounter Care Teams Pigs Feet Finisher Relationship Specialty Start Date End Date Elsewhere, Pcp PCP - General Family Medicine 03/25/21 documented as of this encounter
--- OUTSIDE RECORDS SUMMARY | 2024-06-10 08:57 | XMS_ITS | Encounter Summary ---
Author Organization [facility] Address [address] [place] [address] Care Team Providers Care Culture Media Laboratory Assistant Name Role Phone Elsewhere, Pcp Primary Care Provider Unavailabl e Reason for Visit * Reason Onset Date Comments Lab Monitoring 04/05/2024 Encounter Details Date Type Department Care Team (Latest Contact Info) Description 04/05/2024 Clinical Communication Division of Rheumatology in [place], [place] [address] [place] [address] Vesna Guzmán RAbigail [address] [place] [address] Lab Monitoring Social History Tobacco Use Types [...] How often do you attend episcopalian or confucianist serv ices? Patient declined 07/06/2022 Do you [...] medical care, and heating? Somewhat hard 07/06/2022 [employer] [place] of Occupat ional Health - Occupational Stress [...] or slept in a mcc (including now)? No 07/06/2022 Nutrition Answer Date [...] encounter Miscellaneous Notes * Telephone Encounter - Vesna Guzmán R.N. - 04/05/2024 10:03 AM CDT Documentation note only, patient not contacted ASSESSMENT Rheumatology monitoring labs completed on 03/28/24 for azathioprine (Imuran) monitoring were reviewed per provider order. Labs reviewed: absolute neutrophil count, ALT, AST, hemoglobin, leukocytes, platelets Labs viewable in Labs Tab of Chart Review. PLAN Patient to continue with current plan of care. Patient next due for monitoring labs two months after last monitoring labs; Labs already scheduled with visit on 03/28. Will add ALT to those labs. documented in this encounter Plan of Treatment Not on file documented as of this encounter Results * ALT (Alanine Aminotransferase) (06/01/2024 8:42 AM CDT) Alanine Aminotransferase (ALT), S 14 7 - 45 U/L 06/01/2024 10:37 AM CDT DTL Blood (Blood, Venous) 06/01/2024 8:42 AM CDT 06/01/2024 9:30 AM CDT Pedro Donnelly APRN, C.N.P. LAB BLOOD AD D-[facility] [address] [place] [address], [facility] [address] [place] [address] documented in this encounter Visit Diagnoses Diagnosis Medication Therapy Hatchery Attendant Not Anticoagulant- Primary documented in this encounter Care Teams Culture Media Laboratory Assistant Relationship Specialty Start Date End Date Elsewhere, Pcp PCP - General Family Medicine 03/25/21 documented as of this encounter
--- OUTSIDE RECORDS SUMMARY | 2024-06-10 08:57 | XMS_ITS | Encounter Summary ---
Author Organization [facility] Address [address] [place] [address] Care Team Providers Care Corn Cutter Operator Name Role Phone Elsewhere, Pcp Primary Care Provider Unavailabl e Encounter Details Date Type Department Care Team (Latest Contact Info) Description 06/01/2024 8:04 AM CDT - 06/01/2024 11:59 PM CDT Hospital Encounter Department of Laboratory Medicine and Pathology, [facility] in [place], [place] [address] [place] [address] Pedro Donnelly, BROADCAST OPERATIONS DIRECTOR, C.N.P. [address] [place] [phone] Lupus Systemic Erythematosus (HCC); Hepatitis Autoimmune (HCC); Splenomegaly Acquired; Thrombocytopenia (HCC); High Risk Medication Discharge Disposition: Home or Self Care Social History Tobacco Use Types Packs/Day Years Used Date Smoking Tobacco: Former Cigarettes 0 09/07/1986 - 07/15/2018 Smokeless Tobacco: Never Alcohol Use Standard Drinks/Week Comments No 0 (1 standard drink = 0.6 oz pur e alcohol) [facility] Utilities Answer Date Recorded In the past [...] declined 07/06/2022 How often do you attend hinduism or buddhist serv ices? Patient declined 07/06/2022 Do you belong to any clubs o r organizations such as hinduism groups, unions, fraternal or athletic groups, [...] medical care, and heating? Somewhat hard 07/06/2022 [facility] [place] of Occupat ional Health - Occupational Stress [...] your living situation today? I [facility] a [facility] place to live 05/26/2024 Education Answer [...] DIPSTICK, U Routine 06/01/2024 8:37 AM CDT MICROSCOPIC AUTOMATED Routine 06/01/2024 8:37 AM CDT PH, U Routine 06/01/2024 8:37 AM CDT OSMOLALITY, U Routine 06/01/2024 8:37 AM CDT URINALYSIS WITH MICROSCOPIC Routine 06/01/2024 8:37 AM CDT Lupus Systemic Erythematosus (HCC) Hepatitis Autoimmune (HCC) Splenomegaly Acquired Thrombocytopenia (HCC) High Risk Medication documented in this encounter Results * Protein/Creatinine Ratio, Random, Urine (06/01/2024 8:49 AM CDT) Protein, Total, Random, U 7 mg/dL 06/01/2024 11:08 AM CDT DTL Creatinine, Random, U 76 16 - 326 mg/dL 06/01/2024 11:08 AM CDT DTL Protein/Creatin ine Ratio 0.09 <0.18 mg/mg 06/01/2024 11:08 AM CDT DTL Urine (Urine, Midstream) 06/01/2024 8:49 AM CDT 06/01/2024 9:25 AM CDT Robert Kumar APRNN.P. LAB URINE OR DERABLES [facility] [address] [place] [address], [facility] [address] [place] [address] * Dipstick, Urine (06/01/2024 8:37 AM CDT) [...] LAB URINE OR DERABLES Performing Organization Address City/[facility]/ZIP Co de Phone Number [facility] [address] [place] [address], [facility] [address] [place] [address] * Osmolality, Urine (06/01/2024 8:37 AM CDT) Osmolality, U 693 150 - 1150 mOsm/kg 06/01/2024 10:25 AM CDT DTL Urine 06/01/2024 8:37 AM CDT 06/01/2024 9:26 AM CDT Robert Kumar APRNN.P. LAB URINE OR DERABLES [facility] [address] [place] [address], [facility] [address] [place] [address] * pH, Urine (06/01/2024 8:37 AM CDT) Pathologist [facility] pH, U 5.1 4.5 - 8.0 06/01/2024 10: 25 AM CDT DTL Urine 06/01/2024 8:37 AM CDT 06/01/2024 9:26 AM CDT Pedro Donnelly APRN, C.N.P. LAB URINE OR DERABLES Performing Organization Address City/[facility] Co de Phone Number [facility] [address] [place] [address], [facility] [address] [place] [address] * Microscopic Automated (06/01/2024 8:37 AM CDT) Pathologist [facility] Microscopy Normal 06/01/2024 10:26 AM CDT DTL RBC None Seen <3 /hpf 06/01/2024 10:26 AM CDT DTL WBC None Seen /hpf 06/01/2024 10:26 AM CDT DTL Comment: ----REFERENCE VALUE---- <4 ??(Males) <11 (Females) Urine 06/01/2024 8:37 AM CDT 06/01/2024 9:26 AM CDT Pedro Donnelly APRN, [place].N.P. LAB URINE OR DERABLES Performing Organization Address [facility] Co de Phone Number [facility] [address] [place] [address], [facility] [address] [place] [address] * Urinalysis, with Microscopic: Urine, Voided (06/01/2024 8:37 AM CDT) Pathologist [facility] Source Urine, Urine, Voided 06/01/2024 9:26 AM [...] Donnelly APRN, C.N.P. LAB URINE OR DERABLES [address] [address], [facility] [address] [place] [address] documented in this encounter Visit Diagnoses Diagnosis Lupus Systemic Erythematosus (HCC) Hepatitis Autoimmune (HCC) Splenomegaly Acquired Thrombocytopenia (HCC) High Risk Medication documented in this encounter Care Teams Corn Cutter Operator Relationship Specialty Start Date End Date Elsewhere, Pcp PCP - General Family Medicine 03/25/21 documented as of this encounter
--- OUTSIDE RECORDS SUMMARY | 2024-06-10 08:57 | XMS_ITS | Encounter Summary ---
Author Organization [facility] Address [address] [place] [address] Care Team Providers Care Network Professional Name Role Phone Elsewhere, Pcp Primary Care Provider Unavailabl e Encounter Details Date Type Department Care Team (Latest Contact Info) Description 03/28/2024 10:02 AM CDT - 03/28/2024 11:59 PM CDT Hospital Encounter Department of Laboratory Medicine in [address] [phone] Pedro Donnelly, ANTHONY, C.N.P. [address] [place] [address] Medication Therapy Pole Shaver Not Anticoagulant Discharge Disposition: Home or Self [...] declined 07/06/2022 How often do you attend sabianist or gnosticism serv ices? Patient declined 07/06/2022 Do you belong to any clubs o r organizations such as sabianist groups, unions, fraternal or athletic groups, [...] medical care, and heating? Somewhat hard 07/06/2022 [facility] [place] of Occupat ional Health - Occupational Stress [...] or slept in a correction (including now)? No 07/06/2022 Nutrition Answer Date [...] Refills Start Date End Date calcium carbonate-vit D3-min 600 mg calcium- 800 unit tablet Take 1 tablet by mouth daily. 08/25/2012 estradioL (ESTRACE) 0.1 mg/g (0.01%) vaginal cream Insert 1 g into the vagina. 08/09/2021 Gemtesa 75 mg tablet Take 1 tablet by mouth daily. 06/03/2022 lisinopril-hydroCHLOROt hiazide (PRINZIDE,ZESTORETIC) 20-25 mg per tablet Take 1 tablet by mouth daily. omeprazole (PriLOSEC) [address] capsule TAKE 1 CAPSULE BY MOUTH 2 TIMES A DAY BEFORE BREAKFAST AND DINNER. 180 capsule 3 08/03/2023 valACYclovir (VALTREX) 500 mg tablet as directed. 04/11/2021 azaTHIOprine (IMURAN) 50 mg tabletIndications:Lupus Systemic Erythematosus (HCC) TAKE 4 TABLETS BY MOUTH DAILY. 360 tablet 1 01/12/2024 04/14/2024 hydroxychloroquine (PLAQUENIL) 200 mg tabletIndications:Lupus Systemic Erythematosus (HCC) Take 2 tablets (400 mg total) by mouth daily. Yearly Eye Exams 180 tablet 01/22/2024 06/01/2024 documented as of this encounter Plan of Treatment Not on file documented as of this encounter Procedures Procedure Name Priority Date/Time Associated Diagnosis Comments CBC WITH DIFFERENTIAL, B Routine 03/28/2024 10:10 AM CDT Medication Therapy Pole Shaver Not Anticoagulant ALANINE AMINOTRANSFERASE (ALT), S/P Routine 03/28/2024 10:10 AM CDT Medication Therapy Fdc Not Anticoagulant ASPARTATE AMINOTRANSFERASE (AST), S/P Routine 03/28/2024 10:10 AM CDT Medication Therapy Pole Shaver Not Anticoagulant documented in this encounter Results * ALT (Alanine Aminotransferase) (03/28/2024 10:10 AM CDT) Alanine Aminotransferase (ALT), P 13 7 - 45 U/L 03/28/2024 2:19 PM CDT [facility] Blood (Blood, Venous) 03/28/2024 10:10 AM CDT 03/28/2024 1:38 PM CDT Pedro Donnelly APRN C.N.P. LAB BLOOD AD D[facility] [address] [place] [address], [place] [facility] in [place] [address] [place] [address] * AST (Aspartate Aminotransferase) (03/28/2024 10:10 AM CDT) Aspartate Aminotransferase (AST), P 19 8 - 43 U/L 03/28/2024 2:19 PM CDT OWAT Blood (Blood, Venous) 03/28/2024 10:10 AM CDT 03/28/2024 1:38 PM CDT Robert Kumar APRNNGenny LAB BLOOD AD D-[facility] [address] [place] [address], [facility] OWAT [facility] [place] [address] [place] [address] * (ABNORMAL) CBC with Differential, Blood (03/28/2024 10:10 AM CDT) Hemoglobin 11.9 11.6 - 15.0 g/dL 03/28/2024 10:25 AM CDT FB[facility] Hematocrit 35.0(L) 35.5 - 44.9 % 03/28/2024 10:25 AM CDT [facility] Erythrocytes 3.89(L) 3.92 - 5.13 x10(12)/L 03/28/2024 10:25 AM CDT [facility] MCV 90.0 78.2 - 97.9 fL 03/28/2024 10:25 AM CDT [facility] RBC Distrib Width 14.3 12.2 - 16.1 % 03/28/2024 10:25 AM CDT [facility] Platelet Count 109(L) 157 - 371 x10(9)/L 03/28/2024 10:25 AM CDT [facility] Leukocytes 4.5 3.4 - 9.6 x10(9)/L 03/28/2024 10:25 AM CDT [facility] Neutrophils 3.28 1.56 - 6.45 x10(9)/L 03/28/2024 10:25 AM CDT [facility] Lymphocytes 0.85(L) 0.95 - 3.07 x10(9)/L 03/28/2024 10:25 AM CDT [facility] Monocytes 0.30 0.26 - 0.81 x10(9)/L 03/28/2024 10:25 AM CDT FB60 Eosinophils 0.07 0.03 - 0.48 x10(9)/L 03/28/2024 10:25 AM CDT FB60 Basophils <0.04 0.01 - 0.08 x10(9)/L 03/28/2024 10:25 AM CDT [facility] Blood (Blood, Venous) 03/28/2024 10:10 AM CDT 03/28/2024 10:10 AM CDT Pedro Donnelly APRN, C.N.P. LAB BLOOD AD [facility] [address] [place] [address], [facility] FB60 [facility] in [place] [address] [place] [address] documented in this encounter Visit Diagnoses Diagnosis Medication Therapy Pole Shaver Not Anticoagulant documented in this encounter Care Teams Network Professional Relationship Specialty Start Date End Date Elsewhere, Pcp PCP - General Family Medicine 03/25/21 documented as of this encounter
--- OUTSIDE RECORDS SUMMARY | 2024-06-10 08:57 | XMS_ITS | Encounter Summary ---
Author Organization [facility] Address [address] [place] [address] Care Team Providers Care Medical Videographer Name Role Phone Elsewhere, Pcp Primary Care Provider Unavailabl e Encounter Details Date Type Department Care Team (Late st Contact Info) Description 08/22/2015 Historical Ophthalmology RST OPH Denise Khalil O.D. [address] [place] [address] Social History Tobacco Use Types Packs/Day Years Used Date Smoking Tobacco: Never Assessed Sex and Gender Information Value Date Recorded Sex Assigned at Female 03/09/2018 3:30 PM CDT Gender Identity Female 03/09/2018 3:30 PM CDT Sexual Orientation Straight 03/09/2018 3: 30 PM CDT documented as of this encounter Progress Notes * Denise Khalil O.D. - 08/22/2015 8:00 AM [...] No ancillary testing likely necessary until 2017. Plan: Monitor yearly #2 Dry eye Reviewed Plan:use of artificial tears RTC 1 year or sooner with concerns. DIAGNOSIS #1 High risk medication, hydroxychloroquine #2 Dry eye CDM Reports - EYEGEN Id: [id number] Status: Fnl documented in this encounter Plan of Treatment Not on file documented as of this encounter Visit Diagnoses Not on filedocumented in this encounter Additional Health Concerns Infection Onset Date Last Indicated Resolved Time COVID19 Pending 01/23/2020 01/23/2020 02/15/2020 8 :07 AM CDT documented as of this encounter Care Teams Medical Videographer Relationship Specialty Start Date End Date Elsewhere, Pcp PCP - General Family Medicine 03/25/21 documented as of this encounter
--- OUTSIDE RECORDS SUMMARY | 2024-06-10 08:57 | XMS_ITS | Encounter Summary ---
Author Organization [facility] Address [address] [place] [address] Care Team Providers Care Outreach Team Member Name Role Phone Elsewhere, Pcp Primary Care Provider Unavailabl e Encounter Details Date Type Department Care Team (Late st Contact Info) Description 06/11/2012 Historical Ophthalmology RST OPH Thom Onofre M.D. [address] [place] [address] Social History Tobacco Use Types Packs/Day Years Used Date Smoking Tobacco: Never Assessed Sex and Gender Information Value Date Recorded Sex Assigned at Female 03/09/2018 3:30 PM CDT Gender Identity Female 03/09/2018 3:30 PM CDT Sexual Orientation Straight 03/09/2018 3: 30 PM CDT documented as of this encounter Progress Notes * Thom Onofre M.D. 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 Patient here for evaluation for starting Plaquenil for Lupus. Denies concerns or changes with vision, both eyes. KNK: Will be starting plaquenil. No other eye issues. No family history of eye conditions. 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 Would be nice to see her once on treatment and ensure itis improving. DIAGNOSIS #1 Plaquenil screening exam #2 Probable systemic lupus erythematosis CDM Reports - EYEGEN Id: [id number] Status: Fnl documented in this encounter Plan of Treatment Not on file documented as of this encounter Visit Diagnoses Not on filedocumented in this encounter Additional Health Concerns Infection Onset Date Last Indicated Resolved Time COVID19 Pending 01/23/2020 01/23/2020 02/15/2020 8 :07 AM CDT documented as of this encounter Care Teams Outreach Team Member Relationship Specialty Start Date End Date Elsewhere, Pcp PCP - General Family Medicine 03/25/21 documented as of this encounter
== END 2024-06-09 15:27 | disposition home or self-care (01) ==
LOC: NFLDREF 06-10 08:50
PROVIDERS: PCP Internal Medicine; Referring Provider Internal Medicine; Visit Provider Internal Medicine
DX: I10 Essential (primary) hypertension (principal)
CPT/HCPCS: 80048

== ENCOUNTER 2024-11-08 10:53 | Outpatient (CLI) | payer BC, SELFPAY | END 2024-11-08 10:54 | disposition home or self-care (01) | PROVIDERS: PCP Internal Medicine; Visit Provider Internal Medicine | DX: Z01.818 Encounter for other preprocedural examination (principal) | CPT/HCPCS: 80053 ==

== ENCOUNTER 2025-02-22 09:10 | Outpatient (CLI) | payer BC, SELFPAY ==
--- NOTE | 2025-02-22 09:15 | CRLHL7_ITS ---
For Patients: As a result of the 21st Century Cures Act, medical imaging exams and procedure reports are released immediately into your electronic medical record. You may view this report before your referring provider. If you have questions, please contact your health care provider. EXAM: MRI OF THE RIGHT SHOULDER, WITHOUT CONTRAST CLINICAL INDICATION: Shoulder pain. Injury. PRIOR SURGERY: None reported. COMPARISON PLAIN FILMS: None available at time of interpretation. COMPARISON CROSS-SECTIONAL IMAGING STUDIES: None available at time of interpretation. TECHNICAL: Axial, sagittal oblique and coronal oblique T1, PD, PD FS and T2-weighted images. FINDINGS: GLENOHUMERAL JOINT: Effusion/Cyst: Small to moderate effusion. No synovitis. No paralabral or periarticular cyst or ganglion. Humeral Head Articular Cartilage: Shallow lentiform sclerosis, cysts and edema anterior inferior humeral head suggests subchondral bone plate fracture over rough diameter 22 mm. Slight flattening of the articular contour. Heterogeneous signal of cartilage but no full-thickness defect appreciated. Cartilage well-maintained elsewhere through the humeral head. Glenoid Articular Cartilage: No osteochondral lesion or abnormality. Loose Bodies: No appreciable loose bodies. Capsule: No convincing evidence of adhesive capsulitis or capsular injury. OSSEOUS STRUCTURES: No fracture, marrow edema or marrow replacement process. CORACOACROMIAL ARCH: Acromial Morphology: Type 2 acromial morphology. No abnormal lateral or anterior downward sloping of the acromion. No os acromiale. Shallow broad subacromial spur. Lateral acromial thickness is 7 mm. Acromiohumeral Interval: The acromiohumeral interval is adequately patent. At its narrowest, the interval measures 6 mm. No abnormal thickening of the coracoacromial ligament. Coracohumeral Interval: The coracohumeral interval is normal. At its narrowest, the coracohumeral interval measures greater than 10 mm. Coracoid index is less than 10 mm. ACROMIOCLAVICULAR JOINT REGION: AC Joint: Mild hypertrophic arthrosis. Ligaments: The coracoclavicular ligaments are intact. BURSAE: Subacromial-Subdeltoid: Thin line of fluid and synovitis under the joint, acromion and proximal anterior and lateral deltoid. Subcoracoid: No abnormal bursal edema, thickening or bursal fluid. ROTATOR CUFF TENDONS AND MUSCLES AND DELTOID: Supraspinatus: Irregular up to full-thickness degenerative tearing anterior distal tendon with diameter of roughly 15 mm coronal and sagittal plane. Grade 1/2 muscle atrophy. Infraspinatus: Patchy tendinosis mildly expands distal tendon with sparing of the footplate. No high-grade partial or full-thickness tear. No atrophy or edema in the muscle. Teres Minor: No tendinosis, tendon tearing, muscle atrophy or muscle edema. Subscapularis: Shallow to intermediate grade articular undersurface tear superiorly with patchy tendinosis throughout the distal tendon. No atrophy or edema in the muscle. Deltoid: No muscle atrophy or edema. BICEPS TENDON, LONG HEAD: Indistinct intermediate signal slightly flattened intra-articular tendons suggest tendinosis and partial tearing. Prominent tenosynovitis in the proximal extra-articular tendon sheath and some irregular fraying at the margins of the slightly thickened patchy intermediate signal tendon. Intact biceps anchor. No definite subluxation. GLENOID LABRUM: Somewhat small blunted labrum circumferentially. No linear tear or displacement. OTHER FINDINGS: There is no abnormality within the suprascapular or spinoglenoid notches nor within the quadrilateral space. No axillary adenopathy or mass. IMPRESSION: 1. Subchondral bone plate fracture or osteochondral injury of the anterior inferior humeral head. 2. Chronic appearing full-thickness moderately prominent tear supraspinatus. Grade 1/2 muscle atrophy. 3. Moderate tendinosis infraspinatus without tear. 4. Low to intermediate grade articular tear superior subscapularis with moderate tendinosis intact tendon. 5. Mild subacromial/subdeltoid bursitis. 6. Mild AC DJD. Shallow subacromial spur. Dictated by Reg Roth MD @ 02/22/2025 2:51:10 PM (Electronically Signed)
== END 2025-02-22 09:11 | disposition home or self-care (01) ==
LOC: MRI 09:11
PROVIDERS: PCP Internal Medicine; Visit Provider Internal Medicine
DX: M25.511 Pain in right shoulder (principal); M75.101 Unspecified rotator cuff tear or rupture of right shoulder, not specified as traumatic; S46.811A Strain of other muscles, fascia and tendons at shoulder and upper arm level, right arm, initial encounter; M75.51 Bursitis of right shoulder; M19.011 Primary osteoarthritis, right shoulder
CPT/HCPCS: 73221

== ENCOUNTER 2025-05-15 16:59 | Outpatient (CLI) | payer BC, SELFPAY | END 2025-05-15 17:00 | disposition home or self-care (01) | LOC: NFLDREF 05-19 16:09 | PROVIDERS: PCP Internal Medicine; Referring Provider Internal Medicine; Visit Provider Physician Assistant Surgical | DX: N30.01 Acute cystitis with hematuria (principal) | CPT/HCPCS: 87086 ==

== ENCOUNTER 2025-05-26 08:58 | Outpatient (CLI) | payer BC, SELFPAY ==
--- NOTE | 2025-05-26 09:15 | CRLHL7_ITS ---
For Patients: As a result of the Century Cures Act, medical imaging exams and procedure reports are released immediately into your electronic medical record. You may view this report before your referring provider. If you have questions, please contact your health care provider. INDICATION: BILATERAL SCREENING MAMMOGRAM, ASYMPTOMATIC 59 Y/O FEMALE COMPARISON: 08/03/2023, 07/08/2021, 07/26/2018 TECHNIQUE: Digital mammogram in CC and MLO projections including computer-aided detection (CAD) and tomosynthesis. BREAST COMPOSITION: The breasts are heterogeneously dense, which may obscure small masses. FINDINGS: No suspicious findings. ASSESSMENT: BI-RADS 2 Benign RECOMMENDATION: Annual screening mammogram. A lay language report of this examination will be provided to the patient. Dictated by: Royal Toledo MD @ 05/26/2025 10:36:44 (Electronically Signed)
== END 2025-05-26 08:59 | disposition home or self-care (01) ==
LOC: MAMMO 08:59
PROVIDERS: PCP Internal Medicine; Visit Provider Internal Medicine
DX: Z12.31 Encounter for screening mammogram for malignant neoplasm of breast (principal); R92.333 Mammographic heterogeneous density, bilateral breasts
CPT/HCPCS: 77063; 77067

== ENCOUNTER 2025-06-05 07:30 | Outpatient (RCR) | payer BC, SELFPAY | END 2025-07-03 13:26 | disposition home or self-care (01) | PROVIDERS: PCP Internal Medicine; Visit Provider Orthopaedic Surgery Sports Medicine | DX: M75.101 Unspecified rotator cuff tear or rupture of right shoulder, not specified as traumatic (principal); Z51.89 Encounter for other specified aftercare | CPT/HCPCS: 97110; 97161 ==

== ENCOUNTER 2025-06-27 12:20 | Outpatient (CLI) | payer BC, SELFPAY | END 2025-06-27 12:21 | disposition home or self-care (01) | LOC: NFLDREF 07-03 21:20 | PROVIDERS: PCP Internal Medicine; Referring Provider Internal Medicine; Visit Provider Physician Assistant | DX: N30.01 Acute cystitis with hematuria (principal) | CPT/HCPCS: 87086 ==

== ENCOUNTER 2025-07-27 12:47 | Outpatient (CLI) | payer BC, SELFPAY ==
[2025-07-27] MEDS: DOBUTamine 250 MG in 5 % DEXTROSE 250 ML 230 ML 69 MG IVPB (13:58)
[2025-07-27] MEDS: PERFLUTREN LIPID MICROSPHERES 2 ML VIAL IVP (14:00)
[2025-07-27] MEDS: SODIUM CHLORIDE 0.9 % (FLUSH) 10 ML SYRINGE IVF (14:01)
[2025-07-27 14:09] VITALS: BP 114/49; PULSE 80; RESP 18
--- NOTE | 2025-07-27 14:09 | W.PM.STED ---
Stress Test Note Date Date Seen: 07/27/25 Date of test: 07/27/25 Providers Primary care provider: Leticia Bennett Stress test physician: Johanna Escalante Stress Test Note Stress test ordered: Dobutamine Echo Indication for test: Exertional chest discomfort Stress test medicine: Dobutamine Results discussion: Resting EKG: Sinus rhythm, 66 beats per minute. Resting blood pressure: 137/81 Stress test: Patient consent is obtained for ordered stress test of dobutamine echo, agrees to proceed. Dobutamine was increased by 10 micrograms/kilos/minute roughly every 2 minutes. Patient was at peak heart rate around 7-1/2 minutes roughly. Atropine was not needed. She did require definity for imaging. She had no chest discomfort, did feel lightheadedness from the medication. She did have some ventricular ectopy at the higher dosing of the dobutamine, short run of quadrigeminy but was asymptomatic from this. Maximum heart rate of 137 beats per minute was achieved which was 101% of a calculated target heart rate of 135. She had a maximal blood pressure of 149 over 82. No other arrhythmia and no diagnostic EKG ischemic changes were noted. Patient had resolution of her lightheadedness at the termination of the test, discharge in stable condition. Await echo images to couple this for a full formal diagnostic. Impression: Subjectively negative, objectively negative EKG portion of this dobutamine echo. Follow up suggested: Patient is discharge in stable condition. She will await contact from her ordering physician once the echo images have been read.
== END 2025-07-27 14:25 | disposition home or self-care (01) ==
LOC: STRESS 12:48
PROVIDERS: PCP Internal Medicine; Visit Provider Internal Medicine
DX: I20.89 Other forms of angina pectoris (principal); I51.7 Cardiomegaly
CPT/HCPCS: 93016; 93325; 93351; J1250; J7050; Q9957

== ENCOUNTER 2025-07-31 12:44 | Outpatient (CLI) | payer BC, SELFPAY | END 2025-07-31 12:45 | disposition home or self-care (01) | PROVIDERS: PCP Internal Medicine; Visit Provider Internal Medicine | DX: I10 Essential (primary) hypertension (principal) | CPT/HCPCS: 80048 ==